=== PATIENT | female | born 1950 | race Caucasian/White ===

== ENCOUNTER 2016-07-25 09:11 | Inpatient (IN) | payer BC ==
[2016-07-25] MEDS ORDERED: methylPREDNISolone SOD SUCC* 125 MG 2 ML VIAL IV ONE (10:40)
[2016-07-25] MEDS ORDERED: Ibuprofen TAB* 600 MG PO ONE (10:40)
[2016-07-25] MEDS ORDERED: Albuterol/Ipratropium NEB.SOL* Albuterol 2.5 MG/Ipratropium 0.5 MG 3 ML INH ONE ×2 (10:40→12:09)
[2016-07-25] MEDS ORDERED: Levofloxacin 750 MG IVPREMIX(* 750 MG/150 ML BAG IVPB ONE (10:41)
--- NOTE | 2016-07-25 10:59 | RAD ---
INDICATION: Short of breath COMPARISON: May 15, 2016 TECHNIQUE: PA and lateral dual-energy views were obtained. FINDINGS: Bones/Soft Tissues: There are no acute bony findings. Cardiomediastinal: The cardiac silhouette is unchanged. There is mediastinal shift to left related to left-sided thoracotomy. Lungs: Postoperative changes left hemithorax. No acute infiltrates. Pleura: There are no pleural effusions. Other: None IMPRESSION: LEFT THORACOTOMY. NO ACTIVE DISEASE.
[2016-07-25 11:05] LABS: Hematocrit 37 % (35-47); Mean Corpuscular HGB Conc 32 g/dl (31-36); Mean Corpuscular Hemoglobin 33 pg (27-31); Mean Corpuscular Volume 101 fL (80-97); Mean Platelet Volume 8 um3 (7.4-10.4); Red Blood Count 3.65 10^6/ul (4.0-5.4); Red Cell Distribution Width 14 % (10.5-15); White Blood Count 17.3 10^3/ul (3.5-10.8)
[2016-07-25 11:16] LABS: Albumin 3.8 g/dL (3.2-5.2); BUN/Creatinine Ratio 13.1 (8-20); Calcium 9.5 mg/dL (8.6-10.3); EGFR Non-African American 98.7 (>60); Globulin 3.4 g/dL (2-4); Potassium 3.7 mmol/L (3.5-5.0); Total Bilirubin 0.3 mg/dL (0.2-1.0); Total Protein 7.2 g/dL (6.4-8.9)
[2016-07-25 11:20] LABS: Troponin I 0.06 ng/mL (<0.04)
[2016-07-25] MEDS ORDERED: Morphine INJ* 4 MG/ML 1 ML SYRINGE IV ONE (13:04)
[2016-07-25] MEDS ORDERED: NS 0.9% 1000 ML* 1,000 ML IV ONE (13:06)
[2016-07-25] MEDS ORDERED: QUEtiapine TAB* 25 MG PO PRN (13:12)
--- NOTE | 2016-07-25 13:20 | ED ---
Jennifer Winkler Rebecca, scribed for Solo Seth MD on 07/25/16 at 0956 . Shortness of Breath - HPI Summary HPI Summary: Jessi Glover is a 65 y/o F BIBA who presents to the ED c/o SOB. SOB began 3 weeks ago as constant mild dyspnea at rest, secondary to recent illness, and worsened last night. She was given 2 duoneb treatments and O2 en route to [facility] ED by EMS. Sx aggravated by nothing, alleviated by EMS intervention. Additionally c/o low-grade fever, productive cough. Fever has been around 99, last night reaching 100.1. Sputum is "chartreuse" colored and thick. Confirms she has an inhaler and nebulizer at home. Does not have O2 at home. Was on 1 course of Prednisone in January, and 1 course in early May 2016. PMHx COPD, heart murmur and lung CA (3 years ago). PSHx left upper lobectomy. - History of Current Complaint Chief Complaint: EDRespiratoryDistress Time Seen by Provider: 07/25/16 09:50 Hx Obtained From: Patient Onset/Duration: Gradual Onset, Lasting Weeks - 3 weeks, Worse Since - last night Timing: Constant Current Severity: Moderate Dyspnea At: Rest Aggrevating Factors: Nothing Alleviating Factors: EMS Tx Associated Signs & Symptoms: Cough (Productive) - "chartreuse" sputum, Fever - low-grade - Allergy/Home Medications Allergies/Adverse Reactions: Allergies Allergy/AdvReac Type Severity Reaction Status Date / Time Aspirin Allergy Anaphylatic Verified 07/25/16 12:15 Shock Latex AdvReac Mild Rash Verified 07/25/16 12:15 Home Medications: Home Medications Seroquel TAB* 50 mg PO QPM PRN 07/25/16 [History Confirmed 07/25/16] PMH/Surg Hx/FS Hx/Imm Hx Endocrine/Hematology History: Reports: Hx Thyroid Disease - hypothyroid, Other Endocrine/Hematological Disorders - Benign goiter Denies: Hx Bone Marrow Disease, Hx Diabetes, Hx Systemic Lupus Erythematosus Cardiovascular History: Reports: Hx Hypercholesterolemia - was high before cancer,now off meds., Hx Hypertension, Other Cardiovascular Problems/Disorders - patent foramen ovale; Murmur Denies: Hx Congestive Heart Failure, Hx Pacemaker/ICD Respiratory History: Reports: Hx Chronic Obstructive Pulmonary Disease (COPD), Hx Lung Cancer - Left upper lobectomy, Hx Pneumonia, Other Respiratory Problems/ Disorders - lung cancer, LOBECTOMY 09/11/11 GI History: Reports: Hx Gastroesophageal Reflux Disease, Hx Hiatal Hernia, Other GI Disorders - hiatal hernia, colitis. 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, Hx Osteoporosis - Possible, Hx Scoliosis, Other Musculoskeletal History - scoliosis Denies: Hx Rheumatoid Arthritis Sensory History: Reports: Hx Cataracts - PATIENT STATES BEGINING OF CATARACTS LEFT EYE, Hx Contacts or Glasses, Hx Hearing Problem - right Denies: Hx Hearing Aid Opthamlomology History: Reports: Hx Cataracts - PATIENT STATES BEGINING OF CATARACTS LEFT EYE, Hx Contacts or Glasses Neurological History: Reports: Hx Headaches - frequent h/a's, Hx Migraine - Rare post menopause Psychiatric History: Reports: Hx Anxiety, Hx Depression, Hx Community Mental Health Tx, Hx Substance Abuse - opiods Denies: Hx Panic Disorder, Hx Inpatient Treatment - Cancer History Cancer Type, Location and Year: LUNG CA, DIAGNOSED July 2012 Hx Chemotherapy: Yes Hx Radiation Therapy: No Hx Palliative Cancer Treatment: No - Surgical History Surgery Procedure, Year, and Place: LEFT UPPER LUNG REMOVED 09/2012, HYSTERECTOMY , tonsillectomy Hx Anesthesia Reactions: No - Immunization History Date of Tetanus Vaccine: UTD Date of Influenza Vaccine: 05/01/16 Infectious Disease History: No Infectious Disease History: Denies: Traveled Outside the [place] in Last 30 Days - Family History Known Family History: Positive: Cardiac Disease - Sudden cardiac arrest (father) , Other - son -- glioblastoma. mother - Social History Lives: Alone Alcohol Use: None Hx Substance Use: No Substance Use Type: Reports: None Substance Use Comment - Amount & Last Used: opiates Hx Tobacco Use: Yes Smoking Status (MU): Current Every Day Smoker Type: Cigarettes Amount Used/How Often: 1/2 pack a day Length of Time of Smoking/Using Tobacco: 47 years Have You Smoked in the Last Year: Yes Review of Systems Positive: Fever - low-grade Positive: Shortness Of Breath, Cough - productive All Other Systems Reviewed And Are Negative: Yes Physical Exam Triage Information Reviewed: Yes Vital Signs On Initial Exam: Initial Vitals Temp Pulse Resp BP Pulse Ox 98.3 F 109 24 136/107 100 07/25/16 09:16 07/25/16 09:16 07/25/16 09:16 07/25/16 09:16 07/25/16 09:16 Vital Signs Reviewed: Yes Appearance: Positive: Well-Appearing, No Pain Distress Skin: Positive: Warm, Skin Color Reflects Adequate Perfusion, Dry Head/Face: Positive: Normal Head/Face Inspection Eyes: Positive: Normal ENT: Positive: Normal ENT inspection Neck: Positive: Supple, Nontender Respiratory/Lung Sounds: Positive: Decreased Breath Sounds - Diminished breath sounds in the upper left, Rales - Worse on the R than L Cardiovascular: Positive: Murmur - Loud systolic ejection murmur that's transmitted all over her chest Abdomen Description: Positive: Nontender, Soft Bowel Sounds: Positive: Present Musculoskeletal: Positive: Normal Neurological: Positive: Normal Psychiatric: Positive: Normal, Affect/Mood Appropriate Diagnostics - Vital Signs Vital Signs Temp Pulse Resp BP Pulse Ox 07/25/16 09:16 98.3 F 109 24 136/107 100 - Laboratory Lab Results: Lab Results 07/25/16 07/25/16 Range/Units 10:00 10:00 WBC 17.3 H (3.5-10.8) 10^3/ul RBC 3.65 L (4.0-5.4) 10^6/ul Hgb 12.0 (12.0-16.0) g/dl Hct 37 (35-47) % MCV 101 H (80-97) fL MCH 33 H (27-31) pg MCHC 32 (31-36) g/dl RDW 14 (10.5-15) % Plt Count 337 (150-450) 10^3/ul MPV 8 (7.4-10.4) um3 Neut % (Auto) 88.4 H (38-83) % Lymph % (Auto) 4.9 L (25-47) % Armstrong % (Auto) 6.0 (1-9) % Eos % (Auto) 0.2 (0-6) % Baso % (Auto) 0.5 (0-2) % Absolute Neuts (auto) 15.3 H (1.5-7.7) 10^3/ul Absolute Lymphs (auto) 0.9 L (1.0-4.8) 10^3/ul Absolute Monos (auto) 1.0 H (0-0.8) 10^3/ul Absolute Eos (auto) 0 (0-0.6) 10^3/ul Absolute Basos (auto) 0.1 (0-0.2) 10^3/ul Absolute Nucleated RBC 0 10^3/ul Nucleated RBC % 0 Sodium 128 L (133-145) mmol/L Potassium 3.7 (3.5-5.0) mmol/L Chloride 95 L (101-111) mmol/L Carbon Dioxide 21 L (22-32) mmol/L Anion Gap 12 H (2-11) mmol/L BUN 8 (6-24) mg/dL Creatinine 0.61 (0.51-0.95) mg/dL Est GFR ( Amer) 127.0 (>60) Est GFR (Non-Af Amer) 98.7 (>60) BUN/Creatinine Ratio 13.1 (8-20) Glucose 132 H (70-100) mg/dL Calcium 9.5 (8.6-10.3) mg/dL Total Bilirubin 0.30 (0.2-1.0) mg/dL AST 21 (13-39) U/L ALT 12 (7-52) U/L Alkaline Phosphatase 93 (34-104) U/L Troponin I 0.06 H* (<0.04) ng/mL Total Protein 7.2 (6.4-8.9) g/dL Albumin 3.8 (3.2-5.2) g/dL Globulin 3.4 (2-4) g/dL Albumin/Globulin Ratio 1.1 (1-3) Result Diagrams: 07/25/16 10:00 07/25/16 10:00 Lab Statement: Any lab studies that have been ordered have been reviewed, and results considered in the medical decision making process. - Radiology CXR Radiology Interpretation Completed By: Radiologist - LEFT THORACOTOMY. NO ACTIVE DISEASE. - EKG 0915 Cardiac Rate: Tachycardia - 100 bpm EKG Rhythm: Sinus Tachycardia ST Segment: Normal Ectopy: None Course/Dx - Course Assessment/Plan: Jessi Glover is a 65 y/o F BIBA with a CC of SOB for 3 weeks , secondary to cold, worsening last night. Alleviated by EMS treatments ( duonebs and O2). Additionally c/o productive cough ("chartreuse" color) and low- grade fever, being 100.1 at its highest last night. EKG reveals sinus tachycardia. CXR reveals no active disease. Troponin of 0.06. Her CXR isn't showing an infiltrate but I think it is likely that she has infection somewhere in her airways and I treated her with levaquin and fluids as well as steroids and nebs. She improved but not enough to go home. Discussed care with Dr. Durant, hospitalist, who accepts her for admission. - Diagnoses Provider Diagnoses: Pneumonia, COPD exacerbation - Physician Notifications Discussed Care of Patient With: Dr. Durant, hospitalist, who accepts her for admission. Time Discussed With Above Provider: 12:11 - Critical Care Time Critical Care Time: 30-74 min Discharge - Discharge Plan Condition: Stable Disposition: ADMITTED TO [facility] Referrals: Guerrero Gtz, [employer] [Primary Care Provider] - The documentation as recorded by the Jennifer crawford Rebecca accurately reflects the service I personally performed and the decisions made by me, Solo Seth MD.
[2016-07-25] MEDS ORDERED: Ondansetron INJ* 2 MG/ML VIAL IV PRN (13:24)
[2016-07-25] MEDS ORDERED: Ondansetron INJ* 2 MG/ML VIAL ONE (13:25)
[2016-07-25 13:37] LABS: C Reactive Protein 82.34 mg/L (< 5.00)
[2016-07-25] MEDS: Albuterol/Ipratropium NEB.SOL* Albuterol 2.5 MG/Ipratropium 0.5 MG 3 ML INH PRN ×2 (15:28→20:30)
[2016-07-25] MEDS: Heparin VIAL(*) 5000 UNITS/ML VIAL (FIVE THOUSAND) SUBCUT SCH ×2 (16:21→20:30)
[2016-07-25] MEDS: oxyCODONE/Acetamin 5/325 MG* TAB PO PRN ×2 (17:24→20:28)
--- NOTE | 2016-07-25 20:12 | HP ---
HOSPITAL MEDICINE HISTORY AND PHYSICAL: DATE OF ADMISSION: 07/25/16 PRIMARY CARE PHYSICIAN: Guerrero Gtz NP ATTENDING PHYSICIAN: Master Durant MD* (dictation provided by Angelique Linton NP) CHIEF COMPLAINT: Shortness of breath and cough. HISTORY OF PRESENT ILLNESS: Ms. Glover is a 65-year-old female with a past medical history of lung cancer and COPD, not on home O2 who presents today to the hospital with concern for shortness of breath and cough. Ms. Glover states that she has been sick for approximately 3 weeks. She initially had symptoms of cold with congestion and arthralgias and myalgias as well as some shortness of breath. She was seen by her primary care provider who did prescribe her a steroid taper. She was not prescribed antibiotics at that time. The patient states that she never really felt much better and in the past couple of days she has been having increasing cough and shortness of breath. She states the sputum is thick. She has had low-grade fevers. Today, she was so short of breath that she could not catch her breath at all and decided to come to the emergency room for evaluation. In the emergency room, Ms. Glover had leukocytosis with white blood cell count of 17.3. She had a mild elevation in troponin to 0.06. Her heart rate is elevated at about 115, blood pressure is stable, and she is afebrile. Chest x-ray shows no acute process. Based on Ms. Glover's presentation with concern for shortness of breath, cough and likely COPD exacerbation, Hospital Medicine was called for regarding admission. PAST MEDICAL HISTORY: 1. Adenocarcinoma of the left lung, status post chemotherapy and left upper lobectomy. 2. COPD. 3. Hiatal hernia. 4. PFO. 5. Chronic back pain. 6. Hypertension. 7. Hypothyroidism. 8. History of opioid and benzodiazepine abuse. PAST SURGICAL HISTORY: 1. Left upper lobectomy in 2012. 2. PowerPort placement and removal. 3. Tonsillectomy. 4. Vaginal hysterectomy. MEDICATIONS: 1. Albuterol via nebulizer p.r.n. 2. Albuterol via metered dose inhaler p.r.n. 3. Fluticasone 220 mcg 1 puff inhaled b.i.d. 4. Ipratropium via nebulizer p.r.n. 5. Loratadine 10 mg p.o. daily. 6. Amlodipine 5 mg p.o. q.a.m. 7. Atenolol 25 mg p.o. q.a.m. 8. Duloxetine 60 mg p.o. daily. 9. Levothyroxine 200 mcg p.o. daily. 10. Omeprazole 40 mg p.o. b.i.d. 11. Seroquel 50 mg p.o. q.p.m. p.r.n. insomnia. ALLERGIES: To ASPIRIN and LATEX. FAMILY HISTORY: The patient reports her mom at age of 73 of complications related to ulcerative colitis. Dad at age of 55 of cardiac arrest. The patient has 1 child who of suicide, and 1 who of alcohol-related complications with history also of glioblastoma. SOCIAL HISTORY: The patient states she is an active smoker, smoking one-half pack per day. She smoked since the age of 18. She denies any alcohol use. She has a history of opioid and benzodiazepine abuse, though she denies today. Her daughter is the healthcare proxy. REVIEW OF SYSTEMS: A 14-point review of systems was completed with Ms. Glover and all those not mentioned above were negative. PHYSICAL EXAMINATION GENERAL: Ms. Glover is sitting in the bed. She is in no acute distress. VITAL SIGNS: Temperature 98.3, heart rate 114, respiratory rate 24, O2 saturation 97% on 3L nasal cannula, and blood pressure 141/93. LUNGS: Coarse rhonchi, whistles, and expiratory wheezing bilaterally, left greater than right. HEART: S1, S2 with a loud systolic murmur. Rhythm is regular. ABDOMEN: Soft and nontender with bowel sounds positive x4. EXTREMITIES: No cyanosis or edema. SKIN: Intact. NEUROLOGIC: She is alert and oriented x3. She moves all extremities equally. There is no facial asymmetry or focal weakness. Extraocular movements are intact. DIAGNOSTIC STUDIES/LAB DATA: Sodium 128, potassium 3.7, chloride 95, serum bicarbonate 21, BUN 8, creatinine 0.61, and glucose 132. Troponin 0.06. WBC 17.3, hemoglobin 12.0, hematocrit 37, and platelet count 337. Chest x-ray is read as follows: "Left thoracotomy, no active disease." EKG shows a sinus tachycardia with no evidence of ischemia. ASSESSMENT: Ms. Glover is a 65-year-old female with past medical history of lung cancer and chronic obstructive pulmonary disease who presents today to the emergency room with shortness of breath and cough with illness for over 3 weeks , now acutely worse in the past couple of days. In the emergency room, her chest x- ray is clear, but she does have a leukocytosis. She is afebrile. Our plans are for inpatient admission, I expect her length of stay to be greater than 2 days for the followin. Shortness of breath and cough: I highly suspect the patient has a chronic obstructive pulmonary disease exacerbation based on clinical exam. She does have elevated white count, but her chest x-ray is clear. I do not see any clear indication of pneumonia at this point, but it could be that with IV fluids , her pneumonia may become more evident on chest x-ray. I plan to treat with doxycycline for antibiotic coverage for now. She will have Solu-Medrol 60 mg IV b.i.d. for steroid coverage. I am also suspicious that perhaps she has a flu and plan to check now. The patient has had blood cultures. Lactic acid is being drawn now. She is currently requiring 3 L of oxygen. We will continue that and titrate that down if possible. She will have duo-nebulizer treatments q.4 hours as needed. 2. Hypertension: Continue atenolol and amlodipine. 3. Gastroesophageal reflux disease: Continue omeprazole. 4. DVT prophylaxis: Heparin subcu. 5. Code status: Full code. 6. Disposition: To medical floor. TIME SPENT: Approximately 60 minutes was spent in the admission of this patient , more than half of the time was spent with the patient at the bedside reviewing the events leading up to this hospitalization, performing the physical examination, and reviewing my plan of care. ANGELIQUE LINTON NP CC: Guerrero Gtz NP* [id number]/[facility] #: [id number] [facility] HOSPITALMadyson
[2016-07-25] MEDS: DOXYcycline CAP(*) 100 MG PO SCH (20:30)
[2016-07-25] MEDS: Omeprazole CAP* 20 MG PO SCH (20:30)
[2016-07-26] MEDS: Albuterol/Ipratropium NEB.SOL* Albuterol 2.5 MG/Ipratropium 0.5 MG 3 ML INH PRN ×6 (00:35→22:33)
[2016-07-26] MEDS: oxyCODONE/Acetamin 5/325 MG* TAB PO PRN ×6 (00:35→23:47)
[2016-07-26] MEDS ORDERED: Ibuprofen TAB* 400 MG ONE (03:12)
[2016-07-26] MEDS: Ibuprofen TAB* 400 MG PO PRN ×2 (03:13→10:55)
[2016-07-26 04:10] LABS: PCO2 Arterial 39 mmHg (35-45)
[2016-07-26] MEDS ORDERED: ALPRAZolam TAB* 0.5 MG ONE (05:10)
[2016-07-26] MEDS: Heparin VIAL(*) 5000 UNITS/ML VIAL (FIVE THOUSAND) SUBCUT SCH ×3 (05:12→20:23)
[2016-07-26] MEDS: Levothyroxine TAB* 100 MCG TAB PO SCH (05:12)
[2016-07-26] MEDS: ALPRAZolam TAB* 0.5 MG PO PRN ×3 (05:12→22:29)
[2016-07-26] MEDS: DOXYcycline CAP(*) 100 MG PO SCH ×2 (08:28→20:22)
[2016-07-26] MEDS: DULoxetine DR CAP* 60 MG CAP.DR PO SCH (08:28)
[2016-07-26] MEDS: Atenolol TAB* 25 MG PO SCH (08:29)
[2016-07-26] MEDS: methylPREDNISolone SOD SUCC* 125 MG 2 ML VIAL IV SCH ×2 (08:29→20:23)
[2016-07-26] MEDS: amLODIPine TAB* 5 MG PO SCH (08:29)
[2016-07-26] MEDS: Omeprazole CAP* 20 MG PO SCH ×2 (08:29→20:23)
[2016-07-26] MEDS: NS 0.9% 1000 ML* 1,000 ML IV SCH ×2 (08:30→16:36)
[2016-07-26 08:35] LABS: Hematocrit 33 % (35-47); Hemoglobin 10.9 g/dl (12.0-16.0); Mean Corpuscular HGB Conc 34 g/dl (31-36); Mean Corpuscular Hemoglobin 33 pg (27-31); Mean Corpuscular Volume 99 fL (80-97); Mean Platelet Volume 8 um3 (7.4-10.4); Red Blood Count 3.29 10^6/ul (4.0-5.4); Red Cell Distribution Width 14 % (10.5-15); White Blood Count 16.7 10^3/ul (3.5-10.8)
[2016-07-26 08:55] LABS: Troponin I 0.04 ng/mL (<0.04)
[2016-07-26] MEDS ORDERED: Spiriva Inhaler DEVICE* 1 EACH DEVICE ONE (09:00)
[2016-07-26] MEDS: Tiotropium CAP.INH* CAP.INH/18 MCG INH SCH (09:29)
[2016-07-26 09:44] LABS: Calcium 9.5 mg/dL (8.6-10.3); EGFR African American 110.2 (>60); EGFR Non-African American 85.7 (>60); Potassium 3.9 mmol/L (3.5-5.0)
[2016-07-26] MEDS: guaiFENesin ER TAB 600 MG PO SCH ×2 (12:25→20:22)
--- NOTE | 2016-07-26 14:06 | PN ---
Subjective Date of Service: 07/26/16 Interval History: This is a 65 yo female with COPD and h/o lung CA who presented yesterday with complaints of cough and SOB. She had been feeling congested with mylagias and arthralgias for 3 weeks prior to admission. Influenza testing was negative. She was admitted with a COPD exacerbation and started on IV Solumedrol, doxycycline and nebulizers. Patient typically uses Flovent and prn DuoNebs at home for her COPD treatment. Last night she became severely SOB, ABG was WNL. Symptoms improved with Xanax. Today, she reports that she is feeling much better. She was able to sleep after receiving the Xanax. Her cough and dyspnea are improving. She is still quite fatigued. She denies CP, palp, abd pain, n/v. No new complaints. Objective Active Medications: Albuterol/Ipratropium (Duoneb Neb.Tracey*) 1 neb INH Q4H PRN PRN Reason: SOB/WHEEZING Last Admin: 07/26/16 09:29 Dose: 1 neb Alprazolam (Xanax Tab*) 0.5 mg PO TID PRN PRN Reason: ANXIETY Last Admin: 07/26/16 13:59 Dose: 0.5 mg Amlodipine Besylate (Norvasc Tab*) 5 mg PO QAM [facility] Last Admin: 07/26/16 08:29 Dose: 5 mg Atenolol (Tenormin Tab*) 25 mg PO QAM [facility] Last Admin: 07/26/16 08:29 Dose: 25 mg Doxycycline Hyclate (Vibramycin Cap(*)) 100 mg PO BID [facility] Last Admin: 07/26/16 08:28 Dose: 100 mg Duloxetine HCl (Cymbalta Cap*) 60 mg PO DAILY [facility] Last Admin: 07/26/16 08:28 Dose: 60 mg Guaifenesin (Mucinex*) 1,200 mg PO BID [facility] Last Admin: 07/26/16 12:25 Dose: 1,200 mg Heparin Sodium (Porcine) (Heparin Vial(*)) 5,000 units SUBCUT Q8HR [facility] Last Admin: 07/26/16 13:45 Dose: 5,000 units Sodium Chloride (Ns 0.9% 1000 Ml*) 1,000 mls @ 125 mls/hr IV PER RATE [facility] Stop: 07/26/16 21:14 Last Admin: 07/26/16 08:30 Dose: 125 mls/hr Ibuprofen (Motrin Tab*) 400 mg PO Q6H PRN PRN Reason: PAIN Last Admin: 07/26/16 10:55 Dose: 400 mg Levothyroxine Sodium (Synthroid Tab*) 200 mcg PO DAILY@0600 [facility] Last Admin: 07/26/16 05:12 Dose: 200 mcg Methylprednisolone Sodium Succinate (Solu-Medrol*) 60 mg IV Q12H [facility] Stop: 07/26/16 23:00 Last Admin: 07/26/16 08:29 Dose: 60 mg Omeprazole (Prilosec Cap*) 40 mg PO BID [facility] Last Admin: 07/26/16 08:29 Dose: 40 mg Ondansetron HCl (Zofran Inj*) 4 mg IV Q6H PRN PRN Reason: NAUSEA Last Admin: 07/25/16 13:26 Dose: 4 mg Oxycodone/Acetaminophen (Percocet 5/325 Tab*) 1 tab PO Q4H PRN PRN Reason: PAIN Last Admin: 07/26/16 12:25 Dose: 1 tab Prednisone (Deltasone Tab*) 40 mg PO DAILY [facility] Quetiapine Fumarate (Seroquel Tab*) 50 mg PO QPM PRN PRN Reason: INSOMNIA Tiotropium [place] (Spiriva Cap.Inh*) 1 cap INH DAILY [facility] Last Admin: 07/26/16 09:29 Dose: 1 cap Vital Signs: Temp Pulse Resp BP Pulse Ox 98.6 F 84 16 144/75 98 07/26/16 08:01 07/26/16 14:03 07/26/16 14:03 07/26/16 08:01 07/26/16 14:03 Oxygen Devices in Use Now: Nasal Cannula Appearance: Mildly ill appearing female who appears slightly older than stated age. Ears/Nose/Mouth/Throat: Mucous Membranes Moist Neck: NL Appearance and Movements; NL JVP Respiratory: Symmetrical Chest Expansion and Respiratory Effort, - - diffuse rhonchi and wheezing appreciated Extremities: No Edema Skin: No Rash or Ulcers Neurological: Alert and Oriented x 3 Result Diagrams: 07/26/16 08:28 07/26/16 08:28 Additional Lab and Data: . Microbiology and Other Data: Microbiology 07/25/16 13:32 Influenza Types A,B Antigen ([facility]) - Final Nasal Specimen received for Influenza A/B Molecular testing Diagnostic Imaging: CXR - NAD Assess/Plan/Problems-Billing Assessment: This is a 65 yo female with COPD, HTN, hypothyroidism, PFO, chronic back pain and a h/o lung CA s/p resection and opiate/benzo abuse. She was admitted with a COPD exacerbation, no infiltrated on CXR. - Patient Problems (1) COPD exacerbation Comment: Patient reports significant improvement since admission Transition from IV Solumedrol to prednisone Started Spiriva and Mucinex Cont prn Duonebs and doxycycline (2) Hypertension Comment: Normotensive to slightly hypertensive Continue home antihypertensives (3) Hyponatremia Comment: Resolved with IVF (4) Hypothyroidism Comment: Continue levthyroxine at current home dose Last TSH was slightly over corrected measured last month (5) Tobacco abuse Comment: Patient has a strong desire to quit smoking at this time Declines nicotine replacement in the hospital Status and Disposition: Patient requires continued inpatient hospital care. Discharge in 1-2 days.
[2016-07-27] MEDS: oxyCODONE/Acetamin 5/325 MG* TAB PO PRN ×4 (04:09→21:00)
[2016-07-27] MEDS: Levothyroxine TAB* 100 MCG TAB PO SCH (05:38)
[2016-07-27] MEDS: Heparin VIAL(*) 5000 UNITS/ML VIAL (FIVE THOUSAND) SUBCUT SCH ×3 (05:39→20:56)
[2016-07-27] MEDS: Albuterol/Ipratropium NEB.SOL* Albuterol 2.5 MG/Ipratropium 0.5 MG 3 ML INH PRN ×5 (06:33→22:58)
[2016-07-27] MEDS: ALPRAZolam TAB* 0.5 MG PO PRN ×3 (06:33→21:00)
[2016-07-27] MEDS: Atenolol TAB* 25 MG PO SCH (09:21)
[2016-07-27] MEDS: Omeprazole CAP* 20 MG PO SCH ×2 (09:22→20:54)
[2016-07-27] MEDS: predniSONE TAB* 20 MG PO SCH (09:22)
[2016-07-27] MEDS: DOXYcycline CAP(*) 100 MG PO SCH ×2 (09:23→20:55)
[2016-07-27] MEDS: amLODIPine TAB* 5 MG PO SCH (09:23)
[2016-07-27] MEDS: guaiFENesin ER TAB 600 MG PO SCH ×2 (09:23→20:55)
[2016-07-27] MEDS: DULoxetine DR CAP* 60 MG CAP.DR PO SCH (09:23)
[2016-07-27] MEDS: Tiotropium CAP.INH* CAP.INH/18 MCG INH SCH (10:06)
--- NOTE | 2016-07-27 10:53 | PN ---
Subjective Date of Service: 07/27/16 Interval History: Patient reports improvement but is still quite dyspneic with ambulation. O2 sats maintained in mid 90s on RA at rest, but requires 2L to maintain 90% with ambulation. Objective Active Medications: Albuterol/Ipratropium (Duoneb Neb.Tracey*) 1 neb INH Q4H PRN PRN Reason: SOB/WHEEZING Last Admin: 07/27/16 10:09 Dose: 1 neb Alprazolam (Xanax Tab*) 0.5 mg PO TID PRN PRN Reason: ANXIETY Last Admin: 07/27/16 06:33 Dose: 0.5 mg Amlodipine Besylate (Norvasc Tab*) 5 mg PO QAM ON [facility] OF [facility] Last Admin: 07/27/16 09:23 Dose: 5 mg Atenolol (Tenormin Tab*) 25 mg PO QAM ON LICENSE OF [facility] Last Admin: 07/27/16 09:21 Dose: 25 mg Doxycycline Hyclate (Vibramycin Cap(*)) 100 mg PO BID [facility] OF [facility] Last Admin: 07/27/16 09:23 Dose: 100 mg Duloxetine HCl (Cymbalta Cap*) 60 mg PO DAILY [facility] OF [facility] Last Admin: 07/27/16 09:23 Dose: 60 mg Guaifenesin (Mucinex*) 1,200 mg PO BID [facility] Last Admin: 07/27/16 09:23 Dose: 1,200 mg Heparin Sodium (Porcine) (Heparin Vial(*)) 5,000 units SUBCUT Q8HR ON LICENSE OF [facility] Last Admin: 07/27/16 05:39 Dose: 5,000 units Ibuprofen (Motrin Tab*) 400 mg PO Q6H PRN PRN Reason: PAIN Last Admin: 07/26/16 10:55 Dose: 400 mg Levothyroxine Sodium (Synthroid Tab*) 200 mcg PO DAILY@0600 [facility] Last Admin: 07/27/16 05:38 Dose: 200 mcg Omeprazole (Prilosec Cap*) 40 mg PO BID [facility] OF [facility] Last Admin: 07/27/16 09:22 Dose: 40 mg Ondansetron HCl (Zofran Inj*) 4 mg IV Q6H PRN PRN Reason: NAUSEA Last Admin: 07/25/16 13:26 Dose: 4 mg Oxycodone/Acetaminophen (Percocet 5/325 Tab*) 1 tab PO Q4H PRN PRN Reason: PAIN Last Admin: 07/27/16 04:09 Dose: 1 tab Prednisone (Deltasone Tab*) 40 mg PO DAILY [facility] Last Admin: 07/27/16 09:22 Dose: 40 mg Quetiapine Fumarate (Seroquel Tab*) 50 mg PO QPM PRN PRN Reason: INSOMNIA Tiotropium [place] (Spiriva Cap.Inh*) 1 cap INH DAILY [facility] Last Admin: 07/27/16 10:06 Dose: 1 cap Vital Signs: Temp Pulse Resp BP Pulse Ox 97.4 F 92 18 132/86 99 07/27/16 07:24 07/27/16 10:12 07/27/16 10:45 07/27/16 07:24 07/27/16 10:12 Oxygen Devices in Use Now: Nasal Cannula Appearance: Mildly ill appearing middle aged female in NAD. Occasional productive cough during exam Respiratory: Symmetrical Chest Expansion and Respiratory Effort, - - diffuse wheezing and rhonchi, similar to yesterday's exam Cardiovascular: RRR Abdominal: NL Sounds; No Tenderness; No Distention Extremities: No Edema Skin: No Rash or Ulcers Neurological: Alert and Oriented x 3 Result Diagrams: 07/26/16 08:28 07/26/16 08:28 Additional Lab and Data: . Microbiology and Other Data: Microbiology 07/25/16 13:32 Influenza Types A,B Antigen ([facility]) - Final Nasal Specimen received for Influenza A/B Molecular testing Diagnostic Imaging: CXR - NAD Assess/Plan/Problems-Billing Assessment: This is a 65 yo female with COPD, HTN, hypothyroidism, PFO, chronic back pain and a h/o lung CA s/p resection and opiate/benzo abuse. She was admitted with a COPD exacerbation, no infiltrated on CXR. - Patient Problems (1) COPD exacerbation Comment: Noted improvement since admission but still quite dyspneic and hypoxic with ambulation Started Spiriva and Mucinex Cont prednisone, prn Duonebs and doxycycline (2) Hypertension Comment: Normotensive to slightly hypertensive Continue home antihypertensives (3) Hyponatremia Comment: Resolved with IVF (4) Hypothyroidism Comment: Continue levthyroxine at current home dose Last TSH was slightly over corrected, measured last month (5) Tobacco abuse Comment: Patient has a strong desire to quit smoking at this time Declines nicotine replacement in the hospital Status and Disposition: Patient requires continued inpatient hospital care. Likely ready for dc tomorrow. May require prn home O2 for activity.
[2016-07-28] MEDS: oxyCODONE/Acetamin 5/325 MG* TAB PO PRN ×4 (01:46→20:55)
[2016-07-28] MEDS: Levothyroxine TAB* 100 MCG TAB PO SCH (06:20)
[2016-07-28] MEDS: Heparin VIAL(*) 5000 UNITS/ML VIAL (FIVE THOUSAND) SUBCUT SCH ×3 (06:21→20:56)
[2016-07-28] MEDS: Albuterol/Ipratropium NEB.SOL* Albuterol 2.5 MG/Ipratropium 0.5 MG 3 ML INH PRN ×2 (09:36→16:40)
[2016-07-28] MEDS: Tiotropium CAP.INH* CAP.INH/18 MCG INH SCH (09:47)
[2016-07-28] MEDS: Omeprazole CAP* 20 MG PO SCH ×2 (10:36→20:55)
[2016-07-28] MEDS: DULoxetine DR CAP* 60 MG CAP.DR PO SCH (10:36)
[2016-07-28] MEDS: predniSONE TAB* 20 MG PO SCH (10:37)
[2016-07-28] MEDS: ALPRAZolam TAB* 0.5 MG PO PRN (10:37)
[2016-07-28] MEDS: guaiFENesin ER TAB 600 MG PO SCH ×2 (10:37→20:54)
[2016-07-28] MEDS: DOXYcycline CAP(*) 100 MG PO SCH ×2 (10:37→20:54)
[2016-07-28] MEDS: amLODIPine TAB* 5 MG PO SCH (10:38)
[2016-07-28] MEDS: Atenolol TAB* 25 MG PO SCH (10:38)
--- NOTE | 2016-07-28 11:26 | PN ---
Subjective Date of Service: 07/28/16 Interval History: . Pt reports she is very winded from ambulating and now is SOB at rest. Difficult to speak full sentences due to feeling sob. Pt is worried about going home now thinking is is not as well as she thought she was. She denies fever or chills. reports productive cough with thick patiño/yellow sputum. good appetite. no N/V/D. Denies CP. Reports she plans to quit smoking, she refuses needing or wanting nicotine replacement. Objective Active Medications: Albuterol/Ipratropium (Duoneb Neb.Tracey*) 1 neb INH Q4H PRN PRN Reason: SOB/WHEEZING Last Admin: 07/28/16 09:36 Dose: 1 neb Alprazolam (Xanax Tab*) 0.5 mg PO TID PRN PRN Reason: ANXIETY Last Admin: 07/28/16 10:37 Dose: 0.5 mg Amlodipine Besylate (Norvasc Tab*) 5 mg PO QAM [facility] Last Admin: 07/28/16 10:38 Dose: 5 mg Atenolol (Tenormin Tab*) 25 mg PO QAM [facility] Last Admin: 07/28/16 10:38 Dose: 25 mg Doxycycline Hyclate (Vibramycin Cap(*)) 100 mg PO BID [facility] Last Admin: 07/28/16 10:37 Dose: 100 mg Duloxetine HCl (Cymbalta Cap*) 60 mg PO DAILY [facility] Last Admin: 07/28/16 10:36 Dose: 60 mg Guaifenesin (Mucinex*) 1,200 mg PO BID [facility] Last Admin: 07/28/16 10:37 Dose: 1,200 mg Heparin Sodium (Porcine) (Heparin Vial(*)) 5,000 units SUBCUT Q8HR [facility] Last Admin: 07/28/16 06:21 Dose: 5,000 units Ibuprofen (Motrin Tab*) 400 mg PO Q6H PRN PRN Reason: PAIN Last Admin: 07/26/16 10:55 Dose: 400 mg Levothyroxine Sodium (Synthroid Tab*) 200 mcg PO DAILY@0600 [facility] Last Admin: 07/28/16 06:20 Dose: 200 mcg Omeprazole (Prilosec Cap*) 40 mg PO BID [facility] Last Admin: 07/28/16 10:36 Dose: 40 mg Ondansetron HCl (Zofran Inj*) 4 mg IV Q6H PRN PRN Reason: NAUSEA Last Admin: 07/25/16 13:26 Dose: 4 mg Oxycodone/Acetaminophen (Percocet 5/325 Tab*) 1 tab PO Q4H PRN PRN Reason: PAIN Last Admin: 07/28/16 06:20 Dose: 1 tab Prednisone (Deltasone Tab*) 40 mg PO DAILY [facility] Last Admin: 07/28/16 10:37 Dose: 40 mg Quetiapine Fumarate (Seroquel Tab*) 50 mg PO QPM PRN PRN Reason: INSOMNIA Tiotropium [place] (Spiriva Cap.Inh*) 1 cap INH DAILY [facility] Last Admin: 07/28/16 09:47 Dose: 1 cap Vital Signs 07/27/16 07/27/16 07/27/16 12:45 12:56 13:00 Temperature Pulse Rate 95 Respiratory 19 18 22 Rate Blood Pressure (mmHg) O2 Sat by Pulse 93 Oximetry 07/27/16 07/27/16 07/27/16 14:56 15:12 16:08 Temperature 97.9 F Pulse Rate 99 Respiratory 19 20 18 Rate Blood Pressure 151/85 (mmHg) O2 Sat by Pulse 94 Oximetry 07/27/16 07/27/16 07/27/16 17:01 18:08 18:30 Temperature Pulse Rate 91 Respiratory 18 18 Rate Blood Pressure (mmHg) O2 Sat by Pulse 93 98 Oximetry 07/27/16 07/27/16 07/27/16 20:00 21:00 22:34 Temperature Pulse Rate 94 Respiratory 22 22 22 Rate Blood Pressure (mmHg) O2 Sat by Pulse 93 Oximetry 07/27/16 07/27/16 07/28/16 23:00 23:17 00:00 Temperature 97.4 F Pulse Rate 103 Respiratory 16 22 Rate Blood Pressure 152/85 (mmHg) O2 Sat by Pulse 95 93 Oximetry 07/28/16 07/28/16 07/28/16 01:46 03:46 06:20 Temperature Pulse Rate Respiratory 18 16 20 Rate Blood Pressure (mmHg) O2 Sat by Pulse Oximetry 07/28/16 07/28/16 07/28/16 07:12 08:24 09:41 Temperature 97.7 F Pulse Rate 93 105 77 Respiratory 16 16 Rate Blood Pressure 151/83 (mmHg) O2 Sat by Pulse 87 97 92 Oximetry 07/28/16 10:37 Temperature Pulse Rate Respiratory 18 Rate Blood Pressure (mmHg) O2 Sat by Pulse Oximetry Oxygen Devices in Use Now: Nasal Cannula - 3L NC Appearance: 65 yo female sitting up in bed A+O x3, appears mildy dyspneic Eyes: No Scleral Icterus, PERRLA Ears/Nose/Mouth/Throat: NL Teeth, Lips, Gums, Mucous Membranes Moist Neck: NL Appearance and Movements; NL JVP Respiratory: Symmetrical Chest Expansion and Respiratory Effort, - - L upper- lung no air movement s/p upper lobectomy. Right lung - exp wheezes throughout, with scattered rhonchi Cardiovascular: NL Sounds; No Murmurs; No JVD, RRR, No Edema Abdominal: NL Sounds; No Tenderness; No Distention Lymphatic: No Cervical Adenopathy Extremities: No Edema, No Clubbing, Cyanosis Skin: No Rash or Ulcers, No Nodules or Sclerosis Neurological: Alert and Oriented x 3 Lines/Tubes/Other Access: Clean, Dry and Intact Peripheral IV Nutrition: Taking PO's Result Diagrams: 07/26/16 08:28 07/26/16 08:28 Additional Lab and Data: . Microbiology and Other Data: Microbiology 07/25/16 13:32 Influenza Types A,B Antigen ([place]) - Final Nasal Specimen received for Influenza A/B Molecular testing Diagnostic Imaging: CXR - NAD Assess/Plan/Problems-Billing Assessment: This is a 65 yo female with COPD, HTN, hypothyroidism, PFO, chronic back pain and a h/o lung CA s/p resection and opiate/benzo abuse. She was admitted with a COPD exacerbation, no infiltrated on CXR. - Patient Problems (1) COPD exacerbation Comment: Slowly improving, still quite dyspneic at rest and hypoxic with rest/ambulation Continue Spiriva and Mucinex Cont prednisone, prn Duonebs and doxycycline Repeat lab and chest xray now Continue aggresive pulm tolieting - if not better tomorrow will (2) Hypertension Comment: Normotensive to slightly hypertensive Continue home antihypertensives (3) Tobacco abuse Comment: Patient has a strong desire to quit smoking at this time Declines nicotine replacement in the hospital (4) GERD (gastroesophageal reflux disease) Comment: Continue omeprazole. (5) Hyponatremia Comment: Resolved with IVF (6) Hypothyroidism Comment: Continue levthyroxine at current home dose (7) DVT prophylaxis Comment: SQ heparin (8) Full code status Status and Disposition: Patient requires continued inpatient hospital care. Likely ready for dc tomorrow. May require prn home O2 for activity.
--- NOTE | 2016-07-28 12:19 | ECHO ---
Patient: ELIUD UGALDE [facility] Rec#: [id number] : 1950 Date: 07/28/2016 Age: 65y Height: 152.4 cm / 60.0 in Weight: 46.72 kg / 103.0 lbs Sex: F BSA: 1.41 Room#: [facility] Admit Date#: 07/25/2016 Type: Inpatient Referring: Madeleine Joyce Reading: Alphonso Rogers MD Infant Room Teacher: Renate Junior RUST Infant Room Teacher: Chrissy Pitt CC: Guerrero Gtz NP Transthoracic Echocardiogram Indication: Dyspnea BP: 151/83 HR: 102 Rhythm: Tachycardia Findings History: COPD, HTN, hypothyroid, PFO, s/p Left lung resection, chronic back pain, opiate use. Technical Comments: The study is technically limited due to the patient's history of COPD. The study is technically limited due to the patient's smoking history. The study was technically limited due to the patient's inability to lay in the left lateral decubitus position. Completed at 1118. Left Ventricle: The left ventricular chamber size is normal. Mild to moderate concentric left ventricular hypertrophy is observed. There is a prominent septal knuckle.There is a mean gradient of 5 mm hg at rest across the outflow. No valsalva manuever could be performed. The left ventricle appears hyperdynamic. The estimated ejection fraction is greater than 65%. Abnormal left ventricular diastolic function is observed. Abnormal left ventricular diastolic filling is observed, consistent with impaired relaxation. The patient was unable to perform a Valsalva maneuver. Left Atrium: The left atrium is moderately dilated. Right Ventricle: The right ventricular cavity size is normal. The right ventricular global systolic function is normal. Right Atrium: The right atrial cavity size is normal. Aortic Valve: The aortic valve is trileaflet. The aortic valve leaflets are mildly thickened. There is evidence of aortic sclerosis without stenosis. There is a trace of aortic regurgitation. There is no evidence of aortic stenosis. Mitral Valve: The mitral valve leaflets are mildly thickened. There is mild to moderate mitral regurgitation. The mitral regurgitant jet is eccentric. There is no evidence of mitral stenosis. Tricuspid Valve: The tricuspid valve leaflets are normal. There is mild tricuspid regurgitation. There is evidence of moderate pulmonary hypertension. There is no tricuspid stenosis. Pulmonic Valve: There is no evidence of pulmonic valve thickening. There is a trace pulmonic regurgitation. There is no pulmonic stenosis. Pericardium: There is no significant pericardial effusion. Aorta: There is no dilatation of the ascending aorta. The aortic arch is not well visualized. There is no dilation of the aortic root. Pulmonary Artery: The main pulmonary artery appears normal. Venous: The venous system is not well visualized. Conclusions Mild to moderate concentric left ventricular hypertrophy is observed. There is a prominent septal knuckle.There is a mean gradient of 5 mm hg at rest across the outflow. No valsalva manuever could be performed. The left ventricle appears hyperdynamic. The estimated ejection fraction is greater than 65%. Abnormal left ventricular diastolic filling is observed, consistent with impaired relaxation. There is a trace of aortic regurgitation. There is mild tricuspid regurgitation. There is evidence of moderate pulmonary hypertension. Compared to report of study from 12/19/2012 there does not seems to be significant change. Complete analysis of the LV outflow tract gradient could not be accomplished due to inability to perform a valsalva manuever. Measurements Name Value Normal Range RVIDd (AP) 2D 2.3 cm (0.9 - 2.6) RVDdMajor (2D) 3.2 cm (2.2 - 4.4) RAd ISD 4CH 4.5 cm (3.4 - 4.9) RA (A4C)W 3.8 cm (2.9 - 4.6) IVSd (2D) 1.3 cm (0.6 - 1) LVPWd (2D) 1.1 cm (0.6 - 1) LVIDd (2D) 3.8 cm (3.6 - 5.4) LVIDs (2D) 2.4 cm - LV FS (2D) 36 % (25 - 45) Aortic Annulus 1.7 cm (1.4 - 2.6) Ao root diameter (2D) 2.7 cm (2.1 - 3.5) Ascending Ao 3.3 cm (2.1 - 3.4) LA dimension (AP) 2D 3.9 cm (2.3 - 3.8) LAd ISD 4CH 5.5 cm (2.9 - 5.3) LA ISD 4CH W 4.3 cm (2.5 - 4.5) Name Value Normal Range LA ESV SP 4CH (A/L) 64 ml - LA ESV SP 2CH (A/L) 68 ml - LA ESV BP (A/L) 67 ml - LA ESV BP (A/L) index 47.33 ml/m2 - LA ESV SP 4CH (MOD) 59 ml - LA ESV SP 2CH (MOD) 68 ml - Name Value Normal Range MV E-wave Vmax 1 m/sec - MV deceleration time 146 msec - MV A-wave Vmax 1.3 m/sec - MV E:A ratio 0.77 ratio - LV septal e' Vmax 0.04 m/sec - LV lateral e' Vmax 0.07 m/sec - LV E:e' septal ratio 25 ratio - LV E:e' lateral ratio 14.29 ratio - Name Value Normal Range AV Vmax 1.9 m/sec - AV VTI 28.9 cm - AV peak gradient 14.08 mmHg - AV mean gradient 8.18 mmHg - LVOT Vmax 1.7 m/sec - LVOT VTI 28 cm - LVOT peak gradient 11.29 mmHg - LVOT mean gradient 5.75 mmHg - Name Value Normal Range TR Vmax 3.2 m/sec - TR peak gradient 40 mmHg - RAP 8 mmHg - RVSP 48 mmHg - Name Value Normal Range PV Vmax 1.3 m/sec - PV peak gradient 6.84 mmHg -
--- NOTE | 2016-07-28 12:39 | RAD ---
INDICATION: Dyspnea, hypoxia. History of COPD. Post LEFT upper lobectomy in 2012. COMPARISON: July 25, 2016 TECHNIQUE: Dual energy PA and routine lateral views of the chest were obtained. REPORT: Elevated lung volumes and moderately coarse interstitial markings without change. Rarefaction of the upper lung zone markings greater on the RIGHT than the LEFT. Postsurgical change of LEFT upper lobe resection with associated mild leftward mediastinal shift. No alveolar consolidation, focal pulmonary lesion, pleural effusion, pneumothorax. Negative for cardiomegaly. Mildly tortuous descending thoracic aorta. Unremarkable central pulmonary vasculature. Postsurgical deformity of the peripheral LEFT upper bony thorax without change. Multilevel thoracic degenerative spondylosis with increased thoracic kyphosis. No suspicious focal osseous lesions evident. IMPRESSION: Stigmata of advanced chronic obstructive pulmonary disease and emphysema as well as postsurgical change of LEFT upper lobe resection. No acute cardiopulmonary process evident.
[2016-07-28 13:37] LABS: Hematocrit 36 % (35-47); Hemoglobin 11.8 g/dl (12.0-16.0); Mean Corpuscular HGB Conc 33 g/dl (31-36); Mean Corpuscular Hemoglobin 32 pg (27-31); Mean Corpuscular Volume 99 fL (80-97); Mean Platelet Volume 8 um3 (7.4-10.4); Red Blood Count 3.65 10^6/ul (4.0-5.4); Red Cell Distribution Width 14 % (10.5-15); White Blood Count 15.8 10^3/ul (3.5-10.8)
[2016-07-28 13:50] LABS: Add Diff/Slide Review? Slide Review Added; Comments Flag Yes
[2016-07-28 14:00] LABS: BUN/Creatinine Ratio 21.9 (8-20); Calcium 9.1 mg/dL (8.6-10.3); EGFR African American 120.1 (>60); EGFR Non-African American 93.4 (>60); Potassium 3.7 mmol/L (3.5-5.0)
[2016-07-28 14:05] LABS: Troponin I 0.04 ng/mL (<0.04)
[2016-07-28] MEDS ORDERED: NS 0.9% 1000 ML* 1,000 ML IV SCH (14:30)
[2016-07-29] MEDS: ALPRAZolam TAB* 0.5 MG PO PRN ×2 (00:43→10:40)
[2016-07-29] MEDS: Ibuprofen TAB* 400 MG PO PRN ×2 (00:43→10:37)
[2016-07-29] MEDS: oxyCODONE/Acetamin 5/325 MG* TAB PO PRN ×2 (00:43→06:01)
[2016-07-29] MEDS: Albuterol/Ipratropium NEB.SOL* Albuterol 2.5 MG/Ipratropium 0.5 MG 3 ML INH PRN ×2 (01:00→12:03)
[2016-07-29] MEDS: Heparin VIAL(*) 5000 UNITS/ML VIAL (FIVE THOUSAND) SUBCUT SCH (05:56)
[2016-07-29] MEDS: Levothyroxine TAB* 100 MCG TAB PO SCH (05:56)
[2016-07-29 06:23] LABS: Hematocrit 33 % (35-47); Hemoglobin 10.9 g/dl (12.0-16.0); Mean Corpuscular HGB Conc 33 g/dl (31-36); Mean Corpuscular Hemoglobin 33 pg (27-31); Mean Corpuscular Volume 99 fL (80-97); Mean Platelet Volume 8 um3 (7.4-10.4); Red Blood Count 3.34 10^6/ul (4.0-5.4); Red Cell Distribution Width 14 % (10.5-15); White Blood Count 10.9 10^3/ul (3.5-10.8)
[2016-07-29 06:26] LABS: Add Diff/Slide Review? Slide Review Added; Comments Flag Yes
[2016-07-29 06:39] LABS: BUN/Creatinine Ratio 22.6 (8-20); Calcium 8.8 mg/dL (8.6-10.3); EGFR African American 124.6 (>60); EGFR Non-African American 96.9 (>60); Potassium 3.2 mmol/L (3.5-5.0)
[2016-07-29 07:44] VITALS: BP 179/91
[2016-07-29 08:07] LABS: Eosinophils % 2 % (0-6); Hypochromasia 1+; Immature Granulocytes 3 % (0-9); Myelocytes % 3 % (0-1); Neutrophil % 63 % (38-83); Reactive Lymph % 1 % (0-6)
[2016-07-29] MEDS: Tiotropium CAP.INH* CAP.INH/18 MCG INH SCH (08:36)
[2016-07-29] MEDS: Omeprazole CAP* 20 MG PO SCH (10:36)
[2016-07-29] MEDS: DOXYcycline CAP(*) 100 MG PO SCH (10:39)
[2016-07-29] MEDS: predniSONE TAB* 20 MG PO SCH (10:39)
[2016-07-29] MEDS: DULoxetine DR CAP* 60 MG CAP.DR PO SCH (10:39)
[2016-07-29] MEDS: Atenolol TAB* 25 MG PO SCH (10:41)
[2016-07-29] MEDS: amLODIPine TAB* 5 MG PO SCH (10:42)
[2016-07-29] MEDS: guaiFENesin ER TAB 600 MG PO SCH (10:44)
[2016-07-29] MEDS ORDERED: Potassium Chlor TAB* 20 MEQ TAB.ER PO ONE (11:27)
--- NOTE | 2016-07-29 11:52 | DCNOTE ---
Subjective Date of Service: 07/29/16 Interval History: . pt reports she is much much better today and would like to go home. Denies SOB or CP. No fevers or chills. continues to have a productive cough with thick sputum but reports it is much better. Reports good appetite. No N/V/D. Objective Active Medications: Albuterol/Ipratropium (Duoneb Neb.Tracey*) 1 neb INH Q4H PRN PRN Reason: SOB/WHEEZING Last Admin: 07/29/16 01:00 Dose: 1 neb Alprazolam (Xanax Tab*) 0.5 mg PO TID PRN PRN Reason: ANXIETY Last Admin: 07/29/16 10:40 Dose: 0.5 mg Amlodipine Besylate (Norvasc Tab*) 5 mg PO QAM [facility] Last Admin: 07/29/16 10:42 Dose: 5 mg Atenolol (Tenormin Tab*) 25 mg PO QAM [facility] Last Admin: 07/29/16 10:41 Dose: 25 mg Doxycycline Hyclate (Vibramycin Cap(*)) 100 mg PO BID [facility] Last Admin: 07/29/16 10:39 Dose: 100 mg Duloxetine HCl (Cymbalta Cap*) 60 mg PO DAILY [facility] Last Admin: 07/29/16 10:39 Dose: 60 mg Guaifenesin (Mucinex*) 1,200 mg PO BID [facility] Last Admin: 07/29/16 10:44 Dose: 1,200 mg Heparin Sodium (Porcine) (Heparin Vial(*)) 5,000 units SUBCUT Q8HR [facility] Last Admin: 07/29/16 05:56 Dose: 5,000 units Ibuprofen (Motrin Tab*) 400 mg PO Q6H PRN PRN Reason: PAIN Last Admin: 07/29/16 10:37 Dose: 400 mg Levothyroxine Sodium (Synthroid Tab*) 200 mcg PO DAILY@0600 [facility] Last Admin: 07/29/16 05:56 Dose: 200 mcg Omeprazole (Prilosec Cap*) 40 mg PO BID [facility] Last Admin: 07/29/16 10:36 Dose: 40 mg Ondansetron HCl (Zofran Inj*) 4 mg IV Q6H PRN PRN Reason: NAUSEA Last Admin: 07/25/16 13:26 Dose: 4 mg Oxycodone/Acetaminophen (Percocet 5/325 Tab*) 1 tab PO Q4H PRN PRN Reason: PAIN Last Admin: 07/29/16 06:01 Dose: 1 tab Prednisone (Deltasone Tab*) 40 mg PO DAILY [facility] Last Admin: 07/29/16 10:39 Dose: 40 mg Quetiapine Fumarate (Seroquel Tab*) 50 mg PO QPM PRN PRN Reason: INSOMNIA Tiotropium [place] (Spiriva Cap.Inh*) 1 cap INH DAILY [facility] Last Admin: 07/29/16 08:36 Dose: 1 cap Vital Signs 07/28/16 07/28/16 07/28/16 12:37 15:17 16:42 Temperature 97.4 F Pulse Rate 85 97 Respiratory 17 16 78 Rate Blood Pressure 135/76 (mmHg) O2 Sat by Pulse 97 16 Oximetry 07/28/16 07/28/16 07/28/16 16:50 18:50 20:00 Temperature Pulse Rate Respiratory 18 17 22 Rate Blood Pressure (mmHg) O2 Sat by Pulse Oximetry 07/28/16 07/28/16 07/29/16 20:55 23:26 00:43 Temperature 97.7 F Pulse Rate 92 Respiratory 22 16 22 Rate Blood Pressure 148/84 (mmHg) O2 Sat by Pulse 99 Oximetry 07/29/16 07/29/16 07/29/16 01:04 02:43 06:01 Temperature Pulse Rate 78 Respiratory 16 18 20 Rate Blood Pressure (mmHg) O2 Sat by Pulse 98 Oximetry 07/29/16 07/29/16 07/29/16 07:40 08:01 08:37 Temperature 98.2 F Pulse Rate 86 19 Respiratory 19 98 Rate Blood Pressure 179/91 (mmHg) O2 Sat by Pulse 98 98 Oximetry 07/29/16 07/29/16 07/29/16 08:38 08:39 10:40 Temperature Pulse Rate 86 Respiratory 19 16 Rate Blood Pressure (mmHg) O2 Sat by Pulse 98 98 Oximetry Oxygen Devices in Use Now: Nasal Cannula - 3L NC Appearance: 65 yo female appears chronically ill A+O x3 in NAD Eyes: No Scleral Icterus, PERRLA Ears/Nose/Mouth/Throat: NL Teeth, Lips, Gums, Mucous Membranes Moist Neck: NL Appearance and Movements; NL JVP Respiratory: Symmetrical Chest Expansion and Respiratory Effort, Clear to Auscultation Cardiovascular: NL Sounds; No Murmurs; No JVD, RRR, No Edema Abdominal: NL Sounds; No Tenderness; No Distention Lymphatic: No Cervical Adenopathy Extremities: No Edema, No Clubbing, Cyanosis Skin: No Rash or Ulcers, No Nodules or Sclerosis Neurological: Alert and Oriented x 3, NL Sensation, NL Gait, NL Muscle Strength and Tone Lines/Tubes/Other Access: Clean, Dry and Intact Peripheral IV Nutrition: Taking PO's Result Diagrams: 07/29/16 05:54 07/29/16 05:54 Additional Lab and Data: . Microbiology and Other Data: Microbiology 07/25/16 13:32 Influenza Types A,B Antigen ([place]) - Final Nasal Specimen received for Influenza A/B Molecular testing Diagnostic Imaging: CXR - NAD Assess/Plan/Problems-Billing Assessment: This is a 65 yo female with COPD, HTN, hypothyroidism, PFO, chronic back pain and a h/o lung CA s/p resection and opiate/benzo abuse. She was admitted with a COPD exacerbation, no infiltrated on CXR. - Patient Problems (1) COPD exacerbation Comment: Much improvement today Continue Spiriva and Mucinex Cont prednisone, prn Duonebs and doxycycline Plan for home O2 3L with ambulation - on RA ambulating 83% with 3L NC 93% with ambulation. Refer to Dr. Fernandez as outpt (2) Anxiety Comment: - pt is asking for percocet or xanax at home - discussed with pcp - she has a hx of abuse and overdose. - Plan for Buspar in recommednation with PCP. (3) Hypertension Comment: Normotensive to slightly hypertensive Continue home antihypertensives (4) Tobacco abuse Comment: Patient has a strong desire to quit smoking at this time Declines nicotine replacement in the hospital or at discharge (5) GERD (gastroesophageal reflux disease) Comment: Continue omeprazole. (6) Hyponatremia Comment: Resolved with IVF (7) Hypothyroidism Comment: Continue levthyroxine at current home dose (8) DVT prophylaxis Comment: SQ heparin (9) Full code status Status and Disposition: Plan for DC to home today with oxygen.
--- NOTE | 2016-07-30 10:10 | DS ---
DISCHARGE SUMMARY: DATE OF ADMISSION: 07/25/16 DATE OF DISCHARGE: 07/29/16 PROVIDER: Slade Stein NP. ATTENDING PHYSICIAN: Dr. Garcia *(report dictated by Slade Stein NP). PRIMARY CARE PROVIDER: Guerrero Gtz NP. REFERRING TO: Aurelia Fernandez MD. PRIMARY DIAGNOSES: 1. Chronic obstructive pulmonary disease exacerbation. 2. Anxiety. 3. Tobacco abuse. 4. Hyponatremia. SECONDARY DIAGNOSES: 1. Hypertension. 2. Gastroesophageal reflux disease. 3. Hypothyroidism. 4. Hiatal hernia. 5. History of patent foramen ovale. 6. Chronic back pain. 7. History of opioid and benzodiazepine abuse. 8. History of adenocarcinoma of the left lung, status post chemotherapy and left upper lobe lobectomy. DISCHARGE MEDICATIONS: 1. Seroquel 50 mg p.o. q.p.m. p.r.n. 2. Omeprazole 40 mg p.o. b.i.d. 3. Duloxetine HCl 60 mg p.o. daily. 4. Albuterol HFA inhaler 2 puffs INH q.4 hours p.r.n. 5. Albuterol 2.5 mg/3 mL INH q.4 hours p.r.n. 6. Atenolol 25 mg p.o. q.a.m. 7. Amlodipine 5 mg p.o. q.a.m. 8. Atrovent 0.5 mg neb solution INH q.i.d. p.r.n. 9. Claritin 10 mg p.o. daily. 10. Synthroid 200 mcg p.o. daily. 11. Flovent 220 mcg one puff INH b.i.d. 12. Prednisone 40 mg p.o. daily x4 days. NEW MEDICATIONS: 1. BuSpar 7.5 mg p.o. b.i.d. for anxiety. 2. Doxycycline 500 mg p.o. b.i.d. to finish a 7-day course in total. HISTORY OF PRESENT ILLNESS AND HOSPITAL COURSE: Please see history and physical by Angelique Linton NP, for full admission details; but in summary, this is a 65-year-old female with a past medical history of lung cancer, status post left upper lobectomy, COPD, not on home O2, current tobacco abuse, who presented to the emergency department on 07/25/16 with report of shortness of breath and cough. Ms. Glover reports she has been sick for approximately 3 weeks. She initially had symptoms of cold with congestion, arthralgias, myalgias, and some shortness of breath. She was seen by her primary care provider who prescribed her a steroid taper. She reports that she never really felt better; in the last couple of days, she had increasing cough, shortness of breath with thick sputum and thought she had low-grade fevers and presented to the emergency department for further evaluation. In the emergency department, she was noted to have a white blood cell count of 17.3, mild elevation in troponin of 0.06 and a heart rate of 115. She was noted to be afebrile. Her chest x-ray showed no acute process. The patient was admitted to the hospitalist service for COPD exacerbation and started on IV Solu-Medrol and doxycycline. The patient's influenza A and B were negative. The patient has done well throughout the hospitalization with slow improvement. She has required oxygen throughout hospitalization. Her oxygen requirements have improved; however, she continues to require 3 L with ambulation as on room air. With ambulation, her O2 sat drops to around 80% to 83%. The patient is stable for discharge to home with home O2. Clinically, the patient has had much improvement and today on exam, she has good air movement throughout her lung. The patient continues to have a cough, but reports that this is much better. She has remained afebrile. The patient's blood cultures were negative with no growth on day 4. Her leukocytosis has decreased to 10.9; however, she is on steroid therapy. In regards to her initial elevated troponin, which were trended to be 0.06, 0.01, 0.04, and 0.04. She has had no EKG changes and this was thought to be secondary to demand ischemia. The patient did have an ABG on admission, which was normal. DISCHARGE PLAN: 1. Follow up with Guerrero Gtz NP, in the next 3 to 5 days. 2. The patient has been referred to Dr. Fernandez due to her advanced lung disease. 3. The patient was encouraged to continue inhaled nebulizers at home for the next couple of days. 4. The patient was discharged, to return to the emergency department if there is any worsening or concerning symptoms. TIME SPENT: Approximately 60 minutes was spent on this discharge. SLADE STEIN NP CC: Guerrero Gtz NP; Dr. Fernandez* [id number]/CPS #: [id number] MTDD
== END 2016-07-29 13:20 | disposition home or self-care (01) | DRG 140 ==
LOC: ED 09:11 → MED 13:04
PROVIDERS: ADMIT Internal Medicine; ATTEND Hospitalist
DX: J44.1 Chronic obstructive pulmonary disease with (acute) exacerbation (principal); E87.1 Hypo-osmolality and hyponatremia; I24.8 Other forms of acute ischemic heart disease; Q21.1 Atrial septal defect; F41.9 Anxiety disorder, unspecified; Z72.0 Tobacco use; I10 Essential (primary) hypertension; K21.9 Gastro-esophageal reflux disease without esophagitis; E03.9 Hypothyroidism, unspecified; K44.9 Diaphragmatic hernia without obstruction or gangrene; G89.29 Other chronic pain; M54.9 Dorsalgia, unspecified; D72.829 Elevated white blood cell count, unspecified; E04.9 Nontoxic goiter, unspecified; E78.00 Pure hypercholesterolemia, unspecified; M81.0 Age-related osteoporosis without current pathological fracture; M41.9 Scoliosis, unspecified; H91.91 Unspecified hearing loss, right ear; G43.909 Migraine, unspecified, not intractable, without status migrainosus; F32.9 Major depressive disorder, single episode, unspecified; R09.02 Hypoxemia; Z85.118 Personal history of other malignant neoplasm of bronchus and lung; Z88.6 Allergy status to analgesic agent; Z91.040 Latex allergy status; Z87.01 Personal history of pneumonia (recurrent); Z90.710 Acquired absence of both cervix and uterus; Z82.49 Family history of ischemic heart disease and other diseases of the circulatory system
CPT/HCPCS: 36415; 36600; 71020; 80048; 80053; 82803; 83605; 83880; 84145; 84484; 85025; 86140; 87040; 87502; 93005; 93306; 94640; 94760; 99283; 99406; A9270-GY; J1644; J2270; J2405; J2930; J7512

== ENCOUNTER 2016-08-22 13:56 | Emergency (ER) | payer BC ==
[2016-08-22] MEDS ORDERED: methylPREDNISolone 125 MG* 2 ML VIAL IV ONE (14:34)
[2016-08-22] MEDS ORDERED: Levofloxacin 750 MG IVPREMIX(* 750 MG/150 ML BAG IVPB ONE (14:38)
[2016-08-22] MEDS ORDERED: Morphine INJ* 4 MG/ML 1 ML CARPUJECT IV ONE (14:39)
[2016-08-22] MEDS ORDERED: NS 0.9% 1000 ML* 1,000 ML IV ONE (14:39)
[2016-08-22] MEDS ORDERED: Ondansetron INJ* 2 MG/ML VIAL IV ONE (14:39)
[2016-08-22 14:53] LABS: Hematocrit 35 % (35-47); Hemoglobin 11.9 g/dl (12.0-16.0); Mean Corpuscular HGB Conc 34 g/dl (31-36); Mean Corpuscular Hemoglobin 33 pg (27-31); Mean Corpuscular Volume 98 fL (80-97); Mean Platelet Volume 8 um3 (7.4-10.4); Red Blood Count 3.61 10^6/ul (4.0-5.4); Red Cell Distribution Width 16 % (10.5-15); White Blood Count 13.8 10^3/ul (3.5-10.8)
--- NOTE | 2016-08-22 14:58 | RAD ---
INDICATION: ] Shortness of breath. Relevant surgical history includes left upper lobectomy. COMPARISON: Most recent comparison radiograph is July 28, 2016 TECHNIQUE: Single AP portable view of the chest was obtained. FINDINGS: Image quality is compromised due to the relative inferiority of a portable chest x-ray. Stable postoperative findings include surgical clips overlying the left upper hilum and overall reduction in left lung volume. The heart and mediastinum exhibit normal size and contour. The lungs are grossly clear. There is no evidence of a large pleural effusion. Visualized bones are normal for the patient's age. IMPRESSION: No radiographic evidence for acute cardiopulmonary abnormality on this portable chest x-ray.
[2016-08-22] MEDS ORDERED: NS 0.9% 1000 ML* 400 ML IV ONE (15:07)
[2016-08-22 15:09] LABS: ALT 15 U/L (7-52); Albumin 3.4 g/dL (3.2-5.2); Alkaline Phosphatase 70 U/L (34-104); BUN/Creatinine Ratio 14.1 (8-20); Blood Urea Nitrogen 12 mg/dL (6-24); CO2 Carbon Dioxide 29 mmol/L (22-32); Calcium 9.6 mg/dL (8.6-10.3); EGFR African American 86.6 (>60); EGFR Non-African American 67.3 (>60); Glucose 81 mg/dL (70-100); Total Protein 6.4 g/dL (6.4-8.9)
[2016-08-22 15:10] LABS: Troponin I 0.01 ng/mL (<0.04)
[2016-08-22 15:32] LABS: Chloride 84 mmol/L (101-111); Sodium 122 mmol/L (133-145)
--- NOTE | 2016-08-22 17:29 | ED ---
Nehal Winkler Michael, scribed for Noy Das MD on 08/22/16 at 1452 . Shortness of Breath - HPI Summary HPI Summary: 65 y/o female was BIBA to the ED presenting with SOB that started one day ago. The pt took her pulse Ox and it was 84 when normally it is 97. She had 3 L of oxygen last night to alleviate the SOB. The pt also c/o a cough, lower back pain , and a NELSON. THe PMHx is significant for COPD. - History of Current Complaint Chief Complaint: EDRespiratoryDistress Time Seen by Provider: 08/22/16 14:14 Hx Obtained From: Patient, EMS, Medical Records Onset/Duration: Sudden Onset, Lasting Days Timing: Constant Current Severity: Moderate Dyspnea At: Rest Alleviating Factors: Oxygen Associated Signs & Symptoms: Cough (Productive) - back pain. NELSON. SOB. - Allergy/Home Medications Allergies/Adverse Reactions: Allergies Allergy/AdvReac Type Severity Reaction Status Date / Time Aspirin Allergy Anaphylatic Verified 08/22/16 14:27 Shock Latex AdvReac Mild Rash Verified 08/22/16 14:27 PMH/Surg Hx/FS Hx/Imm Hx Endocrine/Hematology History: Reports: Hx Thyroid Disease - hypothyroid, Other Endocrine/Hematological Disorders - Benign goiter Denies: Hx Bone Marrow Disease, Hx Diabetes, Hx Systemic Lupus Erythematosus Cardiovascular History: Reports: Hx Hypercholesterolemia - was high before cancer,now off meds., Hx Hypertension, Other Cardiovascular Problems/Disorders - patent foramen ovale; Murmur Denies: Hx Congestive Heart Failure, Hx Pacemaker/ICD Respiratory History: Reports: Hx Chronic Obstructive Pulmonary Disease (COPD), Hx Lung Cancer - Left upper lobectomy, Hx Pneumonia, Other Respiratory Problems/ Disorders - lung cancer, LOBECTOMY 09/11/11 GI History: Reports: Hx Gastroesophageal Reflux Disease, Hx Hiatal Hernia, Other GI Disorders - hiatal hernia, colitis. 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, Hx Osteoporosis - Possible, Hx Scoliosis, Other Musculoskeletal History - scoliosis Denies: Hx Rheumatoid Arthritis Sensory History: Reports: Hx Cataracts - PATIENT STATES BEGINING OF CATARACTS LEFT EYE, Hx Contacts or Glasses, Hx Hearing Problem - right Denies: Hx Hearing Aid Opthamlomology History: Reports: Hx Cataracts - PATIENT STATES BEGINING OF CATARACTS LEFT EYE, Hx Contacts or Glasses Neurological History: Reports: Hx Headaches - frequent h/a's, Hx Migraine - Rare post menopause Psychiatric History: Reports: Hx Anxiety, Hx Depression, Hx Community Mental Health Tx, Hx Substance Abuse - opiods Denies: Hx Panic Disorder, Hx Inpatient Treatment - Cancer History Cancer Type, Location and Year: LUNG CA, DIAGNOSED July 2012 Hx Chemotherapy: Yes Hx Radiation Therapy: No Hx Palliative Cancer Treatment: No - Surgical History Surgery Procedure, Year, and Place: LEFT UPPER LUNG REMOVED 09/2012, HYSTERECTOMY , tonsillectomy Hx Anesthesia Reactions: No - Immunization History Date of Tetanus Vaccine: UTD Date of Influenza Vaccine: 05/01/16 Infectious Disease History: No Infectious Disease History: Denies: Traveled Outside the [place] in Last 30 Days - Family History Known Family History: Positive: Cardiac Disease - Sudden cardiac arrest (father) , Other - son -- glioblastoma. UC mother - Social History Occupation: Retired Lives: Alone Alcohol Use: None Hx Substance Use: No Substance Use Type: Reports: None Substance Use Comment - Amount & Last Used: opiates Hx Tobacco Use: Yes Smoking Status (MU): Current Every Day Smoker Type: Cigarettes Amount Used/How Often: 1/2 pack a day Length of Time of Smoking/Using Tobacco: 47 years Have You Smoked in the Last Year: Yes Review of Systems Positive: Shortness Of Breath, Cough Positive: Other - lower back pain Positive: Headache All Other Systems Reviewed And Are Negative: Yes Physical Exam Triage Information Reviewed: Yes Vital Signs On Initial Exam: Initial Vitals Pulse Pulse Ox 69 94 08/22/16 14:20 08/22/16 14:20 Vital Signs Reviewed: Yes Appearance: Positive: Well-Appearing, No Pain Distress Skin: Positive: Warm, Skin Color Reflects Adequate Perfusion, Dry Eyes: Positive: EOMI, ADORE ENT: Positive: Hearing grossly normal, TMs normal Neck: Positive: Supple, Nontender Respiratory/Lung Sounds: Positive: Wheezes - expiratory wheeze Cardiovascular: Positive: RRR, Other - no gallops. Negative: Murmur, Rub Abdomen Description: Positive: Nontender, Soft, Other: - no rebound. Negative: Guarding Bowel Sounds: Positive: Present Musculoskeletal: Positive: Strength/ROM Intact. Negative: Edema Left, Edema Right Neurological: Positive: Sensory/Motor Intact, Alert, Oriented to Person Place, Time, CN Intact II-III Psychiatric: Positive: Affect/Mood Appropriate - Solon Coma Scale Coma Scale Total: 15 Diagnostics - Vital Signs Vital Signs Temp Pulse Resp BP Pulse Ox 08/22/16 14:30 20 139/92 08/22/16 14:27 99 F 76 17 132/77 91 08/22/16 14:22 99 F 67 18 132/77 91 08/22/16 14:21 75 132/77 94 08/22/16 14:20 69 94 - Laboratory Lab Results: Lab Results 08/22/16 08/22/16 08/22/16 Range/Units 14:47 14:47 14:47 WBC 13.8 H (3.5-10.8) 10^3/ul RBC 3.61 L (4.0-5.4) 10^6/ul Hgb 11.9 L (12.0-16.0) g/dl Hct 35 (35-47) % MCV 98 H (80-97) fL MCH 33 H (27-31) pg MCHC 34 (31-36) g/dl RDW 16 H (10.5-15) % Plt Count 319 (150-450) 10^3/ul MPV 8 (7.4-10.4) um3 Neut % (Auto) 79.9 (38-83) % Lymph % (Auto) 8.9 L (25-47) % Marin % (Auto) 9.7 H (1-9) % Eos % (Auto) 0.8 (0-6) % Baso % (Auto) 0.7 (0-2) % Absolute Neuts (auto) 11.0 H (1.5-7.7) 10^3/ul Absolute Lymphs (auto) 1.2 (1.0-4.8) 10^3/ul Absolute Monos (auto) 1.3 H (0-0.8) 10^3/ul Absolute Eos (auto) 0.1 (0-0.6) 10^3/ul Absolute Basos (auto) 0.1 (0-0.2) 10^3/ul Absolute Nucleated RBC 0 10^3/ul Nucleated RBC % 0 Sodium 122 L (133-145) mmol/L Potassium TNP Chloride 84 L (101-111) mmol/L Carbon Dioxide 29 (22-32) mmol/L Anion Gap TNP BUN 12 (6-24) mg/dL Creatinine 0.85 (0.51-0.95) mg/dL Est GFR ( Amer) 86.6 (>60) Est GFR (Non-Af Amer) 67.3 (>60) BUN/Creatinine Ratio 14.1 (8-20) Glucose 81 (70-100) mg/dL Lactic Acid 1.1 (0.5-2.0) mmol/L Calcium 9.6 (8.6-10.3) mg/dL Total Bilirubin 0.40 (0.2-1.0) mg/dL AST TNP ALT 15 (7-52) U/L Alkaline Phosphatase 70 (34-104) U/L Troponin I 0.01 (<0.04) ng/mL Total Protein 6.4 (6.4-8.9) g/dL Albumin 3.4 (3.2-5.2) g/dL Globulin 3.0 (2-4) g/dL Albumin/Globulin Ratio 1.1 (1-3) // Range/Units 16:00 WBC (3.5-10.8) 10^3/ul RBC (4.0-5.4) 10^6/ul Hgb (12.0-16.0) g/dl Hct (35-47) % MCV (80-97) fL MCH (27-31) pg MCHC (31-36) g/dl RDW (10.5-15) % Plt Count (150-450) 10^3/ul MPV (7.4-10.4) um3 Neut % (Auto) (38-83) % Lymph % (Auto) (25-47) % [place] % (Auto) (1-9) % Eos % (Auto) (0-6) % Baso % (Auto) (0-2) % Absolute Neuts (auto) (1.5-7.7) 10^3/ul Absolute Lymphs (auto) (1.0-4.8) 10^3/ul Absolute Monos (auto) (0-0.8) 10^3/ul Absolute Eos (auto) (0-0.6) 10^3/ul Absolute Basos (auto) (0-0.2) 10^3/ul Absolute Nucleated RBC 10^3/ul Nucleated RBC % Sodium (133-145) mmol/L Potassium 4.2 Chloride (101-111) mmol/L Carbon Dioxide (22-32) mmol/L Anion Gap BUN (6-24) mg/dL Creatinine (0.51-0.95) mg/dL Est GFR ( Amer) (>60) Est GFR (Non-Af Amer) (>60) BUN/Creatinine Ratio (8-20) Glucose (70-100) mg/dL Lactic Acid (0.5-2.0) mmol/L Calcium (8.6-10.3) mg/dL Total Bilirubin (0.2-1.0) mg/dL AST 23 ALT (7-52) U/L Alkaline Phosphatase (34-104) U/L Troponin I (<0.04) ng/mL Total Protein (6.4-8.9) g/dL Albumin (3.2-5.2) g/dL Globulin (2-4) g/dL Albumin/Globulin Ratio (1-3) Result Diagrams: 08/22/16 14:47 08/22/16 16:00 Lab Statement: Any lab studies that have been ordered have been reviewed, and results considered in the medical decision making process. - Radiology CXR Xray Interpretation: No Acute Changes Radiology Interpretation Completed By: Radiologist - EKG EK EKG Rhythm: Sinus Rhythm - 65 bpm Ectopy: PACs EKG Comparison: No Significant Change - from EKG on 05/07/16-similar V2V3 boarderline non specific. Course/Dx - Course Course Of Treatment: 65 yo female with known copd sats much better on 2l after neb patient does have an elevated wbc neg cxray. 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 She also understands the risk of and severe respiratory distress. She is being sent with prednisone and levaquin - Diagnoses Provider Diagnoses: COPD exacerbation Discharge - Discharge Plan Condition: Stable Disposition: HOME Prescriptions: Levofloxacin TAB* [Levaquin TAB*] 750 mg PO DAILY #6 tab predniSONE TAB* [Deltasone TAB*] 60 mg PO DAILY #4 tab Patient Education Materials: COPD (Chronic Obstructive Pulmonary Disease) (ED) Referrals: Storm,Shawnti R, TARIFF COUNSEL [Primary Care Provider] - Additional Instructions: You should follow up with Guerrero Gtz (TARIFF COUNSEL) within the next 2 days. The documentation as recorded by the Nehal crawford Michael accurately reflects the service I personally performed and the decisions made by me, Noy Das MD.
[2016-08-22 17:33] VITALS: BP 152/101
== END 2016-08-22 17:56 | disposition home or self-care (01) ==
LOC: ED 13:56
DX: J44.1 Chronic obstructive pulmonary disease with (acute) exacerbation (principal); R05 Cough; M54.9 Dorsalgia, unspecified; R51 Headache; R06.02 Shortness of breath; F17.210 Nicotine dependence, cigarettes, uncomplicated
CPT/HCPCS: 36415; 71010; 80053; 83605; 84484; 85025; 93005; 96374; 96375; 99284; J2270; J2405; J2930

== ENCOUNTER 2016-08-24 00:45 | Observation (INO) | payer BC ==
[2016-08-24] MEDS ORDERED: Albuterol/Ipratropium NEB.SOL* Albuterol 2.5 MG/Ipratropium 0.5 MG 3 ML INH ONE (00:57)
[2016-08-24] MEDS ORDERED: NS 0.9% 1000 ML* 1,000 ML IV ONE (01:37)
[2016-08-24 01:38] LABS: Hematocrit 32 % (35-47); Hemoglobin 10.9 g/dl (12.0-16.0); Mean Corpuscular HGB Conc 34 g/dl (31-36); Mean Corpuscular Hemoglobin 33 pg (27-31); Mean Corpuscular Volume 96 fL (80-97); Mean Platelet Volume 9 um3 (7.4-10.4); Red Cell Distribution Width 16 % (10.5-15); White Blood Count 10.8 10^3/ul (3.5-10.8)
[2016-08-24 01:54] LABS: ALT 14 U/L (7-52); Albumin 3.1 g/dL (3.2-5.2); Alkaline Phosphatase 58 U/L (34-104); BUN/Creatinine Ratio 16.9 (8-20); Blood Urea Nitrogen 12 mg/dL (6-24); CO2 Carbon Dioxide 25 mmol/L (22-32); Calcium 8.4 mg/dL (8.6-10.3); Chloride 84 mmol/L (101-111); EGFR African American 106.6 (>60); EGFR Non-African American 82.9 (>60); Globulin 2.7 g/dL (2-4); Glucose 95 mg/dL (70-100); Total Protein 5.8 g/dL (6.4-8.9)
[2016-08-24 01:58] LABS: Sodium 117 mmol/L (133-145)
[2016-08-24] MEDS ORDERED: Acetaminophen TAB* 325 MG PO ONE (02:23)
--- NOTE | 2016-08-24 02:57 | HP ---
H&P (Free Text) History and Physical: PCP: Salvador Gtz NP Date/Time of Evaluation: 08/24/2016 0215 CC: SOB HPI: Mrs Glover is a 65YO female HX adenoCA s/p L upper lobectomy & COPD continuing to smoke who was seen in [facility] ED 08/22/2016 for SOB, diagnosed w/ acute bronchitis & discharged w/ RXs for levofloxacin & steroids which she did not olive picker from the pharmacy and so re-presents tonight with worsening SOB. She reports fatigue & low grade fever "up to about 100" for the last month. She has had poor PO intake for the past few days and was vomiting, last time Wednesday. She denies chest pain, change in bowels, productive cough, or other issues. Vitals are stable. Labs are remarkable for a Na of 117, previously 122 & stable anemia. CXR is negative for acute changes. PMedHx adenoCA L lung s/p upper lobectomy & chemoTX COPD PFO HTN HLD hypothyroidism chronic LBP HX opioid & benzodiazepine abuse hiatal hernia Allergies Aspirin Allergy (Verified 08/24/16 00:52) Anaphylatic Shock Latex Adverse Reaction (Mild, Verified 08/24/16 00:52) Rash swelling at contact area Ambulatory Orders Nursing to reconcile. Atenolol [Atenolol-] 25 mg PO QAM 06/06/12 Amlodipine Besylate 5 mg PO QAM 07/28/12 Levothyroxine TAB* [Synthroid 25 MCG TAB*] 200 mcg PO DAILY 02/09/16 Duloxetine HCl 60 mg PO DAILY 05/02/16 Omeprazole CAP* [Prilosec CAP* 20 MG] 40 mg PO BID 05/02/16 Albuterol 2.5MG/3ML (0.083%)* [Ventolin 2.5 MG/3 ML NEB.ZACHARY*] 2.5 mg INH Q4H PRN 05/03/16 Albuterol HFA INHALER* [Ventolin HFA Inhaler*] 2 puff INH Q4H PRN 05/03/16 Fluticasone HFA 220 mcg(NF) [Flovent Hfa 220 Mcg(NF)] 1 puff INH BID 05/03/16 Ipratropium 0.5MG/2.5ML NEB* [Atrovent 0.5 MG NEB.ZACHARY*] 0.5 mg INH QID 05/03/16 LoraTADine TAB(NF) [Claritin 10 MG TAB(NF)] 10 mg PO DAILY 05/03/16 Seroquel TAB* 50 mg PO QPM PRN 07/25/16 DOXYcycline CAP(*) [DOXYcycline 100MG CAP(*)] 100 mg PO BID #7 cap 07/29/16 busPIRone TAB* [Buspar TAB*] 7.5 mg PO BID #42 tab 07/29/16 predniSONE TAB* [Deltasone TAB*] 40 mg PO DAILY #8 tab 07/29/16 Levofloxacin TAB* [Levaquin TAB*] 750 mg PO DAILY #6 tab 08/22/16 predniSONE TAB* [Deltasone TAB*] 60 mg PO DAILY #4 tab 08/22/16 PSurgHx L upper lobectomy for adenoCA tonsillectomy hysterectomy SocHx: 1/2PPD cigarettes typically down to ~4cigarettes daily recently w/ ~ 25PYHX, denies alcohol, HX opioid & benzodiazepine abuse currently abstinent; full code status FamHx: Mother: ulcerative colitis; Father: passed of MD in his 50s; 1 child passed of suicide and another passed of complications of alcoholism ROS: as above, otherwise reviewed and all were negative Constitutional: NAD, normally developed, thin white female vitals: Vital Signs Temp 37.4 C 08/24/16 02:21 Pulse 83 08/24/16 02:21 Resp 18 08/24/16 02:21 BP 123/66 08/24/16 02:40 Pulse Ox 97 08/24/16 02:40 Intake & Output 08/23/16 08/23/16 08/24/16 11:59 23:59 11:59 Weight 45.359 kg HEENM: atraumatic; sclera/conjunctiva: non-icteric/clear; hearing: clinically intact; oropharynx: clear, mucosa dry Neck: soft tissue: non-tender; thyroid: no mass Pulmonary: mild barnes-expiratory wheeze, fair aeration, no accessory muscle use CV: RR/RR, normal S1S2, no carotid bruit, no jugular venous distention, 2+ B DP/ PT, no edema Abdominal: soft, non-distended, non-tender, no rebound/guarding/rigidity, normoactive bowel sounds, no hepatosplenomegaly or masses, no costovertebral angle tenderness Musculoskeletal: general: grossly intact; gait: stable Integumental: normal appearance and texture Psychiatric orientation: AA&O to PPS affect: calm mood: cooperative eye contact: good content: reliable responses: timely insight: poor Testing: Lab Results 08/24/16 08/24/16 08/24/16 Range/Units 01:26 01:26 01:26 WBC 10.8 (3.5-10.8) 10^3/ul RBC 3.30 L (4.0-5.4) 10^6/ul Hgb 10.9 L (12.0-16.0) g/dl Hct 32 L (35-47) % MCV 96 (80-97) fL MCH 33 H (27-31) pg MCHC 34 (31-36) g/dl RDW 16 H (10.5-15) % Plt Count 314 (150-450) 10^3/ul MPV 9 (7.4-10.4) um3 Neut % (Auto) 68.9 (38-83) % Lymph % (Auto) 18.1 L (25-47) % Kay % (Auto) 11.8 H (1-9) % Eos % (Auto) 1.0 (0-6) % Baso % (Auto) 0.2 (0-2) % Absolute Neuts (auto) 7.5 (1.5-7.7) 10^3/ul Absolute Lymphs (auto) 2.0 (1.0-4.8) 10^3/ul Absolute Monos (auto) 1.3 H (0-0.8) 10^3/ul Absolute Eos (auto) 0.1 (0-0.6) 10^3/ul Absolute Basos (auto) 0 (0-0.2) 10^3/ul Absolute Nucleated RBC 0 10^3/ul Nucleated RBC % 0 Sodium 117 L* (133-145) mmol/L Potassium TNP Chloride 84 L (101-111) mmol/L Carbon Dioxide 25 (22-32) mmol/L Anion Gap TNP BUN 12 (6-24) mg/dL Creatinine 0.71 (0.51-0.95) mg/dL Est GFR ( Amer) 106.6 (>60) Est GFR (Non-Af Amer) 82.9 (>60) BUN/Creatinine Ratio 16.9 (8-20) Glucose 95 (70-100) mg/dL Lactic Acid 0.8 (0.5-2.0) mmol/L Calcium 8.4 L (8.6-10.3) mg/dL Total Bilirubin 0.40 (0.2-1.0) mg/dL AST TNP ALT 14 (7-52) U/L Alkaline Phosphatase 58 (34-104) U/L Total Protein 5.8 L (6.4-8.9) g/dL Albumin 3.1 L (3.2-5.2) g/dL Globulin 2.7 (2-4) g/dL Albumin/Globulin Ratio 1.1 (1-3) CXR, personally reviewed: surgical clips L upper chest, small L pleural effusion , no acute process Impression: 65F HX adenoCA lung presents w/ SOB and incidental finding of hypoNatremia 117 DIAGNOSIS & PLAN Primary hypoNatremia w/ HX adenoCA lung : volume depletion favored over SIADH : NS IVFs overnight and trend BMPs : telemetry : seizure precautions : supportive care COPD w/ SOB : albuterol nebs : mometasone/formoterol : tiotropium : IV methylprednisolone : incentive spirometry : low flow oxygen supplementation : smoking cessation advised, low-mod motivation : supportive care Secondary PFO : no acute issues HTN : review meds once reconciled HLD : review meds once reconciled : heart healthy diet no caffeine hypothyroidism : review meds once reconciled chronic LBP : review meds once reconciled : HX opioid & benzodiazepine abuse, avoid hiatal hernia/GERD : omeprazole Admission Rational: inpatient for management of severe chronic hypoNatremia inappropriate for the outpatient setting DVTp: heparin SQ & SCDs Code Status: full HCP: daughter, Yesy Glover
--- NOTE | 2016-08-24 02:57 | ED ---
Milton Winkler Billy, scribed for Oscar Ruano MD on 08/24/16 at 0122 . Respiratory - HPI Summary HPI Summary: Patient is a 65 y/o female BIBA to [facility] for evaluation of SOB today. Patient was seen in the ED yesterday for the same and was prescribed steroids and antibiotics, but she has yet to case picker her medication. She states she feels fatigued and anxious. EMS reports that the patient was on 95% room air by the time they arrived, and she improved with Duoneb given en route. - History of Current Complaint Chief Complaint: EDRespiratoryDistress Stated Complaint: SHORT OF BREATH Time Seen by Provider: 08/24/16 00:47 Hx Obtained From: Patient, EMS Onset/Duration: Gradual Onset Timing: Constant Initial Severity: Moderate Current Severity: Moderate Aggravating Factor(s): Nothing Alleviating Factor(s): Neb. Bronchodilators (Frequency Of Use) Associated Signs and Symptoms: SOB - Allergy/Home Medications Allergies/Adverse Reactions: Allergies Allergy/AdvReac Type Severity Reaction Status Date / Time Aspirin Allergy Anaphylatic Verified 08/24/16 00:52 Shock Latex AdvReac Mild Rash Verified 08/24/16 00:52 PMH/Surg Hx/FS Hx/Imm Hx Endocrine/Hematology History: Reports: Hx Thyroid Disease - hypothyroid, Other Endocrine/Hematological Disorders - Benign goiter Denies: Hx Bone Marrow Disease, Hx Diabetes, Hx Systemic Lupus Erythematosus Cardiovascular History: Reports: Hx Hypercholesterolemia - was high before cancer,now off meds., Hx Hypertension, Other Cardiovascular Problems/Disorders - patent foramen ovale; Murmur Denies: Hx Congestive Heart Failure, Hx Pacemaker/ICD Respiratory History: Reports: Hx Chronic Obstructive Pulmonary Disease (COPD), Hx Lung Cancer - Left upper lobectomy, Hx Pneumonia, Other Respiratory Problems/ Disorders - lung cancer, LOBECTOMY 09/11/11 GI History: Reports: Hx Gastroesophageal Reflux Disease, Hx Hiatal Hernia, Other GI Disorders - hiatal hernia, colitis. 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, Hx Osteoporosis - Possible, Hx Scoliosis, Other Musculoskeletal History - scoliosis Denies: Hx Rheumatoid Arthritis Sensory History: Reports: Hx Cataracts - PATIENT STATES BEGINING OF CATARACTS LEFT EYE, Hx Contacts or Glasses, Hx Hearing Problem - right Denies: Hx Hearing Aid Opthamlomology History: Reports: Hx Cataracts - PATIENT STATES BEGINING OF CATARACTS LEFT EYE, Hx Contacts or Glasses Neurological History: Reports: Hx Headaches - frequent h/a's, Hx Migraine - Rare post menopause Psychiatric History: Reports: Hx Anxiety, Hx Depression, Hx Community Mental Health Tx, Hx Substance Abuse - opiods Denies: Hx Panic Disorder, Hx Inpatient Treatment - Cancer History Cancer Type, Location and Year: LUNG CA, DIAGNOSED July 2012 Hx Chemotherapy: Yes Hx Radiation Therapy: No Hx Palliative Cancer Treatment: No - Surgical History Surgery Procedure, Year, and Place: LEFT UPPER LUNG REMOVED 09/2012, HYSTERECTOMY , tonsillectomy Hx Anesthesia Reactions: No - Immunization History Date of Tetanus Vaccine: UTD Date of Influenza Vaccine: 05/01/16 Infectious Disease History: No Infectious Disease History: Denies: Traveled Outside the [place] in Last 30 Days - Family History Known Family History: Positive: Cardiac Disease - Sudden cardiac arrest (father) , Other - son -- glioblastoma. UC mother - Social History Alcohol Use: None Hx Substance Use: No Substance Use Type: Reports: None Substance Use Comment - Amount & Last Used: opiates Hx Tobacco Use: Yes Smoking Status (MU): Current Every Day Smoker Type: Cigarettes Amount Used/How Often: 1/2 pack a day Length of Time of Smoking/Using Tobacco: 47 years Have You Smoked in the Last Year: Yes Review of Systems Positive: Fatigue Positive: Shortness Of Breath Positive: Anxious All Other Systems Reviewed And Are Negative: Yes Physical Exam Triage Information Reviewed: Yes Vital Signs On Initial Exam: Initial Vitals Temp Pulse Resp BP Pulse Ox 99.3 F 71 18 148/88 98 08/24/16 00:52 08/24/16 00:52 08/24/16 00:52 08/24/16 00:52 08/24/16 00:52 Vital Signs Reviewed: Yes Appearance: Positive: Thin Skin: Positive: Warm Head/Face: Positive: Normal Head/Face Inspection Eyes: Positive: ADORE ENT: Positive: Hearing grossly normal Neck: Positive: Supple Respiratory/Lung Sounds: Positive: Breath Sounds Present - mild, Wheezes - few scattered bilat with pprolonged exp Cardiovascular: Positive: RRR Abdomen Description: Positive: Nontender, Soft Musculoskeletal: Positive: Strength/ROM Intact Neurological: Positive: Sensory/Motor Intact, Alert, Oriented to Person Place, Time Diagnostics - Vital Signs Vital Signs Temp Pulse Resp BP Pulse Ox 08/24/16 00:52 99.3 F 71 18 148/88 98 - Laboratory Lab Results: Lab Results 08/24/16 08/24/16 08/24/16 Range/Units 01:26 01:26 01:26 WBC 10.8 (3.5-10.8) 10^3/ul RBC 3.30 L (4.0-5.4) 10^6/ul Hgb 10.9 L (12.0-16.0) g/dl Hct 32 L (35-47) % MCV 96 (80-97) fL MCH 33 H (27-31) pg MCHC 34 (31-36) g/dl RDW 16 H (10.5-15) % Plt Count 314 (150-450) 10^3/ul MPV 9 (7.4-10.4) um3 Neut % (Auto) 68.9 (38-83) % Lymph % (Auto) 18.1 L (25-47) % [place] % (Auto) 11.8 H (1-9) % Eos % (Auto) 1.0 (0-6) % Baso % (Auto) 0.2 (0-2) % Absolute Neuts (auto) 7.5 (1.5-7.7) 10^3/ul Absolute Lymphs (auto) 2.0 (1.0-4.8) 10^3/ul Absolute Monos (auto) 1.3 H (0-0.8) 10^3/ul Absolute Eos (auto) 0.1 (0-0.6) 10^3/ul Absolute Basos (auto) 0 (0-0.2) 10^3/ul Absolute Nucleated RBC 0 10^3/ul Nucleated RBC % 0 Sodium 117 L* (133-145) mmol/L Potassium TNP Chloride 84 L (101-111) mmol/L Carbon Dioxide 25 (22-32) mmol/L Anion Gap TNP BUN 12 (6-24) mg/dL Creatinine 0.71 (0.51-0.95) mg/dL Est GFR ( Amer) 106.6 (>60) Est GFR (Non-Af Amer) 82.9 (>60) BUN/Creatinine Ratio 16.9 (8-20) Glucose 95 (70-100) mg/dL Lactic Acid 0.8 (0.5-2.0) mmol/L Calcium 8.4 L (8.6-10.3) mg/dL Total Bilirubin 0.40 (0.2-1.0) mg/dL AST TNP ALT 14 (7-52) U/L Alkaline Phosphatase 58 (34-104) U/L Total Protein 5.8 L (6.4-8.9) g/dL Albumin 3.1 L (3.2-5.2) g/dL Globulin 2.7 (2-4) g/dL Albumin/Globulin Ratio 1.1 (1-3) Result Diagrams: 08/24/16 05:28 08/24/16 05:28 Lab Statement: Any lab studies that have been ordered have been reviewed, and results considered in the medical decision making process. Re-Evaluation - Re-Evaluation First Eval Re-Evaluation Time: 02:07 Comment: Labs reviewed. breathing improved but profound hyponatremia Disposition - Diagnoses Provider Diagnoses: Hyponatremia, COPD (chronic obstructive pulmonary disease) - Physician Notifications Discussed Care Of Patient With: Dr. Melton (hospitalist) @ 0205: accepts admission. Instructed by Provider To: Admit As Inpatient Discharge - Discharge Plan Condition: Fair Disposition: ADMITTED TO [facility] documentation as recorded by the Milton crawford Billy accurately reflects the service I personally performed and the decisions made by me, Oscar Ruano MD.
[2016-08-24] MEDS ORDERED: Ondansetron INJ* 2 MG/ML VIAL IV PRN (03:26)
[2016-08-24] MEDS ORDERED: Albuterol 2.5 MG/3 ML NEB.SOL* (0.083%) INH PRN (03:26)
[2016-08-24] MEDS ORDERED: Melatonin (NF) 3 MG TAB PO PRN (03:26)
[2016-08-24] MEDS ORDERED: Acetaminophen TAB* 325 MG PO PRN (03:26)
[2016-08-24] MEDS ORDERED: methylPREDNISolone SOD SUCC* 125 MG 2 ML VIAL IV ONE (03:27)
[2016-08-24] MEDS: Levofloxacin TAB* 500 MG PO SCH (03:57)
[2016-08-24] MEDS: NS 0.9% 1000 ML* 1,000 ML IV SCH ×2 (04:04→09:02)
[2016-08-24 05:47] LABS: Hematocrit 32 % (35-47); Hemoglobin 10.7 g/dl (12.0-16.0); Mean Corpuscular HGB Conc 34 g/dl (31-36); Mean Corpuscular Hemoglobin 33 pg (27-31); Mean Corpuscular Volume 98 fL (80-97); Mean Platelet Volume 8 um3 (7.4-10.4); Red Blood Count 3.22 10^6/ul (4.0-5.4); Red Cell Distribution Width 16 % (10.5-15)
[2016-08-24 06:09] LABS: EGFR Non-African American 88.6 (>60)
[2016-08-24 07:04] LABS: Calcium 8.1 mg/dL (8.6-10.3); Potassium 3.8 mmol/L (3.5-5.0)
[2016-08-24] MEDS: Omeprazole CAP* 20 MG PO SCH (07:07)
[2016-08-24 07:26] LABS: BUN/Creatinine Ratio 14.9 (8-20)
--- NOTE | 2016-08-24 07:45 | RAD ---
INDICATION: Shortness of breath. COMPARISON: Comparison is made with a prior chest x-ray study from August 22, 2016. Correlation is also made with an exam from July 28, 2016. TECHNIQUE: Dual-energy PA and lateral views of the chest were obtained. FINDINGS: The heart is within normal limits in size. Multiple surgical clips are noted in the left hilar region. There is volume loss in the left hemithorax most consistent with partial left pneumonectomy. The lungs are clear. There is flattening of the diaphragms consistent with chronic obstructive lung disease. No pleural effusion is seen. IMPRESSION: POSTSURGICAL CHANGES AND FINDINGS CONSISTENT WITH COPD, NO EVIDENCE FOR ACUTE FINDING.
[2016-08-24] MEDS: traMADol TAB* 50 MG PO PRN ×3 (08:53→23:11)
[2016-08-24] MEDS: Docusate CAP* 100 MG PO SCH ×2 (08:54→21:59)
[2016-08-24] MEDS: Albuterol 2.5 MG/3 ML NEB.SOL* (0.083%) INH SCH ×3 (09:09→21:06)
[2016-08-24] MEDS: Mometasone/Formoter 200/5 MDI INH SCH ×2 (09:15→21:05)
[2016-08-24] MEDS: Tiotropium CAP.INH* CAP.INH/18 MCG INH SCH (09:17)
--- NOTE | 2016-08-24 09:57 | PN ---
Subjective Date of Service: 08/24/16 Interval History: This is a 65 yo male with COPD who presents with c/o SOB, n/v/d. Patient was hospitalized ~3 weeks ago with COPD exacerbation. Patient states that she was feeling somewhat better up until 2 days ago when she began with n/v/d and increased dyspnea. She was hyponatremic at admission, which is improving with NS. She was started on corticosteroids and abx for COPD exacerbation. Patient reports generalized malaise and continued dyspnea this am. She has a productive cough. Afebrile overnight. No further n/v/d. Tolerated breakfast. No abd pain, no CP. Objective Active Medications: Acetaminophen (Tylenol Tab*) 650 mg PO Q6H PRN PRN Reason: FEVER/PAIN Albuterol (Ventolin 2.5 Mg/3 Ml Neb.Tracey*) 2.5 mg INH Q2H PRN PRN Reason: SOB/WHEEZING Albuterol (Ventolin 2.5 Mg/3 Ml Neb.Tracey*) 2.5 mg INH [id number] AWAKE [facility] Last Admin: 08/24/16 09:09 Dose: 2.5 mg Device (Tiotropium Inhaler Device*) 1 each INH ONCE ONE Stop: 08/24/16 10:01 Last Admin: 08/24/16 09:14 Dose: 1 each Docusate Sodium (Colace Cap*) 200 mg PO BID [facility] Last Admin: 08/24/16 08:54 Dose: Not Given Heparin Sodium (Porcine) (Heparin Vial(*)) 5,000 units SUBCUT Q8HR [facility] Sodium Chloride (Ns 0.9% 1000 Ml*) 1,000 mls @ 200 mls/hr IV PER RATE [facility] Stop: 08/25/16 08:29 Last Admin: 08/24/16 09:02 Dose: 200 mls/hr Levofloxacin (Levaquin Tab*) 500 mg PO Q24HR [facility] Last Admin: 08/24/16 03:57 Dose: 500 mg Melatonin (Melatonin (Nf)) 3 mg PO BEDTIME PRN; Protocol PRN Reason: Sleep Mometasone Furoate/Formoterol Fumar (Dulera 200/5 Mdi*) 2 puff INH BID [facility] Last Admin: 08/24/16 09:15 Dose: 2 puff Omeprazole (Prilosec Cap*) 20 mg PO DAILY@0600 [facility] Last Admin: 08/24/16 07:07 Dose: 20 mg Ondansetron HCl (Zofran Inj*) 4 mg IV Q6H PRN PRN Reason: NAUSEA Prednisone (Deltasone Tab*) 60 mg PO DAILY [facility] Tiotropium [place] (Spiriva Cap.Inh*) 1 cap INH DAILY [facility] Last Admin: 08/24/16 09:17 Dose: 1 cap Tramadol HCl (Ultram*) 50 mg PO Q8H PRN PRN Reason: PAIN Last Admin: 08/24/16 08:53 Dose: 50 mg Vital Signs: Temp Pulse Resp BP Pulse Ox 98.4 F 81 16 131/72 99 08/24/16 07:40 08/24/16 09:12 08/24/16 09:12 08/24/16 07:40 08/24/16 09:13 Oxygen Devices in Use Now: Nasal Cannula Appearance: Moderately ill appearing and dyspneic after returning from the bathroom. Ears/Nose/Mouth/Throat: Mucous Membranes Moist Neck: NL Appearance and Movements; NL JVP Respiratory: Symmetrical Chest Expansion and Respiratory Effort, - - diffuse rhonchi and few wheezes Cardiovascular: - - faint murmur Abdominal: NL Sounds; No Tenderness; No Distention Extremities: No Edema Skin: No Rash or Ulcers Neurological: Alert and Oriented x 3 Result Diagrams: 08/24/16 05:28 08/24/16 05:28 Additional Lab and Data: Vital Signs: Temp Pulse Resp BP Pulse Ox 98.4 F 81 16 131/72 99 08/24/16 07:40 08/24/16 09:12 08/24/16 09:12 08/24/16 07:40 08/24/16 09:13 Microbiology and Other Data: Microbiology 08/24/16 07:40 Influenza Types A,B Antigen ([place]) - Final Nasal Specimen received for Influenza A/B Molecular testing Influenza - neg Diagnostic Imaging: CXR - NAD Assess/Plan/Problems-Billing Assessment: This is a 65 yo female with h/o adenocarcinoma of the lung, COPD, HTN, HLD, hypothyroidism, and h/o benzo/opiate abuse who presented with n/v/d and c/o dyspnea and cough. Admitted for hyponatremia, COPD exacerbation and likely viral gastroenteritis. - Patient Problems (1) COPD exacerbation Comment: Sig rhonchi/wheeze on exam with c/o dyspnea Cont corticosteroids and Levaquin Spiriva started Cont Dulera It appears patient only has Flovent at home, she requires LAMA, LABA/ICS at discharge (2) Hyponatremia Comment: Improving with NS Cont to monitor closely Likely due to hypovolemia (3) Gastroenteritis Comment: No further vomiting or diarrhea since admission Cont supportive care (4) GERD (gastroesophageal reflux disease) Comment: Continue omeprazole. (5) Hypertension Comment: Normotensive Resume home antihypertensives, atenolol/amlodipine (6) Hypothyroidism Comment: Continue levthyroxine at current home dose (7) Tobacco abuse Comment: Patient has desired smoking cessation but continues to smoke Continue to encourage cessation (8) Depression Comment: Cont Cymbalta/Seroquel (9) Anxiety Comment: Cont Buspar initiated at last hospitalization avoid benzos as she has a h/o abuse and OD (10) History of lung cancer Status and Disposition: Patient requires continued hospital stay. Anticipate dc in 2-3 days.
[2016-08-24] MEDS ORDERED: Spiriva Inhaler DEVICE* 1 EACH DEVICE INH ONE (10:00)
[2016-08-24] MEDS ORDERED: QUEtiapine TAB* 25 MG PO PRN (10:07)
[2016-08-24 10:19] LABS: BUN/Creatinine Ratio 12.7 (8-20); Calcium 8.5 mg/dL (8.6-10.3); EGFR African American 106.6 (>60); EGFR Non-African American 82.9 (>60); Potassium 3.4 mmol/L (3.5-5.0)
[2016-08-24 16:14] LABS: Calcium 8.3 mg/dL (8.6-10.3); EGFR African American 81.1 (>60); Potassium 3.7 mmol/L (3.5-5.0)
[2016-08-24] MEDS: busPIRone TAB* 5 MG PO SCH (21:58)
[2016-08-25] MEDS: Heparin VIAL(*) 5000 UNITS/ML VIAL (FIVE THOUSAND) SUBCUT SCH ×2 (05:53→06:00)
[2016-08-25] MEDS: Omeprazole CAP* 20 MG PO SCH (05:53)
[2016-08-25 08:17] VITALS: BP 160/89
[2016-08-25] MEDS: traMADol TAB* 50 MG PO PRN (08:36)
[2016-08-25] MEDS: Mometasone/Formoter 200/5 MDI INH SCH (08:41)
[2016-08-25] MEDS: Tiotropium CAP.INH* CAP.INH/18 MCG INH SCH (08:41)
[2016-08-25] MEDS ORDERED: methylPREDNISolone SOD SUCC* 40 MG/ML VIAL IV SCH (09:00)
[2016-08-25] MEDS ORDERED: Atenolol TAB* 25 MG PO SCH (09:00)
[2016-08-25] MEDS ORDERED: Cetirizine* 10 MG TAB PO SCH (09:00)
[2016-08-25] MEDS ORDERED: amLODIPine TAB* 5 MG PO SCH (09:00)
[2016-08-25] MEDS ORDERED: DULoxetine DR CAP* 60 MG CAP.DR PO SCH (09:00)
[2016-08-25] MEDS ORDERED: Levothyroxine TAB* 100 MCG TAB PO SCH (09:00)
[2016-08-25] MEDS ORDERED: predniSONE TAB* 20 MG PO SCH (09:00)
[2016-08-25] MEDS: Levofloxacin TAB* 500 MG PO SCH (09:23)
[2016-08-25] MEDS: busPIRone TAB* 5 MG PO SCH (09:23)
[2016-08-25] MEDS: Docusate CAP* 100 MG PO SCH (09:47)
--- NOTE | 2016-08-26 02:17 | DS ---
DISCHARGE SUMMARY: DATE OF ADMISSION: 08/24/16 DATE OF DISCHARGE: 08/25/16 PRIMARY CARE PROVIDER: Guerrero Gtz NP DISCHARGING PROVIDER: ALEJANDRO Martin SUPERVISING PHYSICIAN: KIRSTIE Zepeda (DICTATED BY ALEJANDRO MARTIN) PRIMARY DISCHARGE DIAGNOSES: 1. Acute viral gastroenteritis. 2. Chronic obstructive pulmonary disease exacerbation. 3. Hyponatremia - acute on chronic. SECONDARY DISCHARGE DIAGNOSES: 1. Gastroesophageal reflux disease. 2. Hypertension. 3. Hypothyroidism. 4. Tobacco abuse. 5. Depression. 6. Anxiety. 7. History of lung cancer. 8. History and benzo and opiate abuse. 9. Chronic back pain. DISCHARGE MEDICATIONS: 1. Cymbalta 60 mg p.o. daily. 2. Seroquel 50 mg p.o. nightly. 3. Nebulized albuterol inhaled q.4 hours as needed for shortness of breath. 4. Ventolin inhaler 2 puffs inhaled q.4 hours as needed for shortness of breath. 5. Amlodipine 5 mg p.o. daily. 6. Atenolol 25 mg p.o. daily. 7. Flovent 220 mcg 1 puff inhaled twice daily. 8. Nebulized ipratropium inhaled 4 times daily as needed for shortness of breath. 9. Levaquin 500 mg p.o. daily x7 days. 10. Levothyroxine 200 mcg p.o. daily. 11. Loratadine 10 mg daily. 12. Omeprazole 40 mg p.o. twice daily. 13. Spiriva 1 capsule inhaled daily. 14. BuSpar 7.5 mg p.o. twice daily. 15. Prednisone on a tapering dose 40 mg x3 days followed by 20 mg x3 days followed by 10 mg x3 days. 16. Tramadol 50 mg p.o. q.8 hours as needed for pain. MEDICATION CHANGES: 1. Start Spiriva. 2. Prednisone tapering dose as described above. 3. Levaquin x7 days. HOSPITAL IMAGING: Chest x-ray, 08/24/16, demonstrates acute findings consistent with COPD. No acute changes. HOSPITAL COURSE: This is a 65-year-old female with a history of COPD as well as prior history of adenocarcinoma of the lung as well as hypertension, hyperlipidemia, hypothyroidism, and a history of opiate and benzo abuse, who presented to the emergency department with complaints of shortness of breath. The patient was discharged from the hospital on 07/29/16, approximately 4 weeks ago, at which point, she was treated for a COPD exacerbation and discharged with antibiotics and a steroid taper. The patient states that she took these medications as directed and she was feeling better for a couple of weeks. She was not requiring her oxygen on a routine basis at home up until about 2 to 3 days prior to her admission when she developed nausea, vomiting, and diarrhea and with that came increased shortness of breath and cough. When the patient reached the emergency department, initial CBC was largely unremarkable, no leukocytosis, hemoglobin was 10.9 which is near her baseline, and platelet count was normal. Chemistries revealed sodium of 117 mmol/L and remainder of chemistries were unremarkable. Influenza testing was negative. The patient was afebrile. She was subsequently admitted for COPD exacerbation with an acute viral gastroenteritis and hyponatremia secondary to hypovolemia. The patient was hydrated with normal saline and her sodium improved to 130 mmol/ L prior to discharge. She was treated with corticosteroids, Levaquin, and Spiriva was initiated for her COPD. Her respiratory complaints improved significantly and she did not require supplemental O2 at the time of discharge and was saturating in the mid 90s on room air. The patient's GI complaints resolved. She was able to tolerate a regular diet without nausea, vomiting, or diarrhea. The patient had some concerns about her pain management in regards to her chronic back pain as well as her depression. She has had significant loss losing both of her sons and her over the last couple of years. She has had incredibly difficult time coping with that. She is currently on Cymbalta and Seroquel, which she believes is helping somewhat, but states that she does very few activities throughout the day and would like some additional help with her depressive symptoms. Recommended that she follow up with her primary care provider, who may be able to refer to Psychiatry for further evaluation and treatment. The patient also reports that she has chronic back pain, which she struggles with. She states that tramadol is generally effective, but she does not like the way that it makes her feel. She feels that opiates are more effective. Again, recommended that she discuss this further with her primary care provider. Per her history, she has trouble with opiate and benzo abuse and would highly discourage prescribing these for her. DISPOSITION: The patient is being discharged to home with medication changes as recommended above. Recommend initiating Spiriva for COPD management as well as antibiotics and prednisone as described above. The patient requires close followup with her primary care provider regarding this hospital admission and to discuss management of her back pain and depression in further detail. ALEJANDRO MARTIN CC: Guerrero Gtz NP* [id number]/CPS #: [id number] NICOLE
== END 2016-08-25 11:05 | disposition home or self-care (01) ==
LOC: ED 00:45 → MEDTELE 02:11 → INTOOBSV 02:11 → UNDODISIN 15:00 → MEDTELE 19:52 → UNDODISIN 20:13
PROVIDERS: ADMIT Hospitalist; ATTEND Hospitalist
DX: A08.4 Viral intestinal infection, unspecified (principal); J44.1 Chronic obstructive pulmonary disease with (acute) exacerbation; E87.1 Hypo-osmolality and hyponatremia; K21.9 Gastro-esophageal reflux disease without esophagitis; I10 Essential (primary) hypertension; E03.9 Hypothyroidism, unspecified; F32.9 Major depressive disorder, single episode, unspecified; F41.9 Anxiety disorder, unspecified; M54.9 Dorsalgia, unspecified; G89.29 Other chronic pain; Z85.118 Personal history of other malignant neoplasm of bronchus and lung; Z79.899 Other long term (current) drug therapy; Z88.6 Allergy status to analgesic agent; F17.210 Nicotine dependence, cigarettes, uncomplicated; Q21.1 Atrial septal defect; R06.02 Shortness of breath
CPT/HCPCS: 36415; 71020; 80048; 80053; 83605; 85025; 85027; 85610; 85730; 87502; 94640; 94760; 96361; 96372; 96374; 99285; 99406; A9270-GY; G0378; J1644; J2930; J7512

== ENCOUNTER 2016-08-30 19:56 | Inpatient (IN) | payer BC ==
[2016-08-30] MEDS ORDERED: methylPREDNISolone SOD SUCC* 125 MG 2 ML VIAL IV ONE (20:05)
--- NOTE | 2016-08-30 20:36 | RAD ---
INDICATION: Shortness of breath. COMPARISON: Comparison is made with a prior chest x-ray study from August 24, 2016 and a prior study from July 28, 2016. TECHNIQUE: AP and lateral views of the chest were obtained. FINDINGS: The heart is within normal limits in size. The patient is status post partial left pneumonectomy. There are multiple surgical clips in the left hilum. There is a new small infiltrate at the left lung base. The right lung appears clear. There are flattening of the diaphragms consistent with chronic obstructive pulmonary disease. IMPRESSION: 1. POSTSURGICAL CHANGES, NEW SMALL LEFT BASILAR INFILTRATE. 2. COPD.
[2016-08-30 21:01] LABS: Hematocrit 37 % (35-47); Hemoglobin 12.1 g/dl (12.0-16.0); Mean Corpuscular HGB Conc 33 g/dl (31-36); Mean Corpuscular Hemoglobin 32 pg (27-31); Mean Corpuscular Volume 98 fL (80-97); Mean Platelet Volume 8 um3 (7.4-10.4); Red Blood Count 3.74 10^6/ul (4.0-5.4); Red Cell Distribution Width 16 % (10.5-15); White Blood Count 12.6 10^3/ul (3.5-10.8)
[2016-08-30 21:15] LABS: Albumin 3.4 g/dL (3.2-5.2); Calcium 8.6 mg/dL (8.6-10.3); EGFR Non-African American 98.7 (>60); Globulin 2.7 g/dL (2-4); Potassium 3.7 mmol/L (3.5-5.0); Total Bilirubin 0.4 mg/dL (0.2-1.0); Total Protein 6.1 g/dL (6.4-8.9)
[2016-08-30 21:17] LABS: Troponin I 0.01 ng/mL (<0.04)
[2016-08-30] MEDS ORDERED: Piperac/Tazob 3.375 gm in NS* 3.375 GM/100 ML BAG IVPB ONE (21:33)
--- NOTE | 2016-08-30 21:40 | ED ---
Charly Winkler Erika, scribed for Oscar Ruano MD on 08/30/16 at 2026 . Shortness of Breath - HPI Summary HPI Summary: Patient is a 65-year-old female presenting to the ED with a CC of SOB. Patient reports a Hx COPD, and states she does not usually use home O2. However, starting at 03:00 today, patient has been having worsening SOB. She used 4L O2 today and used a nebulizer treatment, which slightly helped, but did not fully alleviate symptoms. Patient was also given 2 nebulizers by EMS. Patient has a Hx chronic hyponatremia and has been hospitalized for this condition in the past. - History of Current Complaint Time Seen by Provider: 08/30/16 20:01 Hx Obtained From: Patient Onset/Duration: Gradual Onset, Lasting Hours, Still Present Timing: Constant Current Severity: Moderate Dyspnea At: Rest Alleviating Factors: Bronchodilators, EMS Tx, Oxygen Related History: Similar Episode - Allergy/Home Medications Allergies/Adverse Reactions: Allergies Allergy/AdvReac Type Severity Reaction Status Date / Time Aspirin Allergy Anaphylatic Verified 08/24/16 00:52 Shock Latex AdvReac Mild Rash Verified 08/24/16 00:52 Home Medications: Home Medications Tiotropium CAP.INH* [Spiriva CAP.INH*] 1 cap.inh INH DAILY 08/30/16 [History Confirmed 08/30/16] PMH/Surg Hx/FS Hx/Imm Hx Endocrine/Hematology History: Reports: Hx Thyroid Disease - hypothyroid, Other Endocrine/Hematological Disorders - Benign goiter Denies: Hx Bone Marrow Disease, Hx Diabetes, Hx Systemic Lupus Erythematosus Cardiovascular History: Reports: Hx Hypercholesterolemia - was high before cancer,now off meds., Hx Hypertension, Other Cardiovascular Problems/Disorders - patent foramen ovale; Murmur Denies: Hx Congestive Heart Failure, Hx Pacemaker/ICD Respiratory History: Reports: Hx Chronic Obstructive Pulmonary Disease (COPD), Hx Lung Cancer - Left upper lobectomy, Hx Pneumonia, Other Respiratory Problems/ Disorders - lung cancer, LOBECTOMY 09/11/11 GI History: Reports: Hx Gastroesophageal Reflux Disease, Hx Hiatal Hernia, Other GI Disorders - hiatal hernia, colitis. 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, Hx Osteoporosis - Possible, Hx Scoliosis, Other Musculoskeletal History - scoliosis Denies: Hx Rheumatoid Arthritis Sensory History: Reports: Hx Cataracts - PATIENT STATES BEGINING OF CATARACTS LEFT EYE, Hx Contacts or Glasses, Hx Hearing Problem - right Denies: Hx Hearing Aid Opthamlomology History: Reports: Hx Cataracts - PATIENT STATES BEGINING OF CATARACTS LEFT EYE, Hx Contacts or Glasses Neurological History: Reports: Hx Headaches - frequent h/a's, Hx Migraine - Rare post menopause Psychiatric History: Reports: Hx Anxiety, Hx Depression, Hx Community Mental Health Tx, Hx Substance Abuse - opiods Denies: Hx Panic Disorder, Hx Inpatient Treatment - Cancer History Cancer Type, Location and Year: LUNG CA, DIAGNOSED July 2012 Hx Chemotherapy: Yes Hx Radiation Therapy: No Hx Palliative Cancer Treatment: No - Surgical History Surgery Procedure, Year, and Place: LEFT UPPER LUNG REMOVED 09/2012, HYSTERECTOMY , tonsillectomy Hx Anesthesia Reactions: No - Immunization History Date of Tetanus Vaccine: UTD Date of Influenza Vaccine: 05/01/16 Infectious Disease History: Denies: Hx of Known/Suspected MRSA - Family History Known Family History: Positive: Cardiac Disease - Sudden cardiac arrest (father) , Other - son -- glioblastoma. UC mother - Social History Alcohol Use: None Hx Substance Use: No Substance Use Type: Reports: None Substance Use Comment - Amount & Last Used: opiates Hx Tobacco Use: Yes Smoking Status (MU): Current Every Day Smoker Type: Cigarettes Amount Used/How Often: 1/2 pack a day Length of Time of Smoking/Using Tobacco: 47 years Have You Smoked in the Last Year: Yes Review of Systems Negative: Fever Positive: Shortness Of Breath All Other Systems Reviewed And Are Negative: Yes Physical Exam Triage Information Reviewed: Yes Vital Signs On Initial Exam: Temp Pulse Resp BP Pulse Ox 98.4 F 78 20 124/74 98 08/30/16 20:06 08/30/16 20:06 08/30/16 20:06 08/30/16 20:06 08/30/16 20:06 Vital Signs Reviewed: Yes Appearance: Positive: Ill-Appearing, Thin, Cachectic Skin: Positive: Warm Head/Face: Positive: Normal Head/Face Inspection Eyes: Positive: ADORE ENT: Positive: Hearing grossly normal Neck: Positive: Supple Respiratory/Lung Sounds: Positive: Decreased Breath Sounds, Wheezes - bilat exp Cardiovascular: Positive: RRR Abdomen Description: Positive: Nontender, Soft Bowel Sounds: Positive: Present Musculoskeletal: Positive: Strength/ROM Intact Neurological: Positive: Sensory/Motor Intact, Alert, Oriented to Person Place, Time Psychiatric: Positive: Anxious Diagnostics - Vital Signs Vital Signs Temp Pulse Resp BP Pulse Ox 08/30/16 20:25 22 08/30/16 20:06 98.4 F 78 20 124/74 98 - Laboratory Lab Results: Lab Results 08/30/16 08/30/16 08/30/16 Range/Units 20:50 20:50 20:50 WBC 12.6 H (3.5-10.8) 10^3/ul RBC 3.74 L (4.0-5.4) 10^6/ul Hgb 12.1 (12.0-16.0) g/dl Hct 37 (35-47) % MCV 98 H (80-97) fL MCH 32 H (27-31) pg MCHC 33 (31-36) g/dl RDW 16 H (10.5-15) % Plt Count 357 (150-450) 10^3/ul MPV 8 (7.4-10.4) um3 Neut % (Auto) 85.3 H (38-83) % Lymph % (Auto) 7.2 L (25-47) % [place] % (Auto) 7.2 (1-9) % Eos % (Auto) 0.1 (0-6) % Baso % (Auto) 0.2 (0-2) % Absolute Neuts (auto) 10.8 H (1.5-7.7) 10^3/ul Absolute Lymphs (auto) 0.9 L (1.0-4.8) 10^3/ul Absolute Monos (auto) 0.9 H (0-0.8) 10^3/ul Absolute Eos (auto) 0 (0-0.6) 10^3/ul Absolute Basos (auto) 0 (0-0.2) 10^3/ul Absolute Nucleated RBC 0.01 10^3/ul Nucleated RBC % 0.1 Sodium 129 L (133-145) mmol/L Potassium 3.7 (3.5-5.0) mmol/L Chloride 94 L (101-111) mmol/L Carbon Dioxide 25 (22-32) mmol/L Anion Gap 10 (2-11) mmol/L BUN 11 (6-24) mg/dL Creatinine 0.61 (0.51-0.95) mg/dL Est GFR ( Amer) 127.0 (>60) Est GFR (Non-Af Amer) 98.7 (>60) BUN/Creatinine Ratio 18.0 (8-20) Glucose 111 H (70-100) mg/dL Lactic Acid 1.0 (0.5-2.0) mmol/L Calcium 8.6 (8.6-10.3) mg/dL Total Bilirubin 0.40 (0.2-1.0) mg/dL AST 15 (13-39) U/L ALT 11 (7-52) U/L Alkaline Phosphatase 56 (34-104) U/L Troponin I 0.01 (<0.04) ng/mL Total Protein 6.1 L (6.4-8.9) g/dL Albumin 3.4 (3.2-5.2) g/dL Globulin 2.7 (2-4) g/dL Albumin/Globulin Ratio 1.3 (1-3) Result Diagrams: 08/30/16 20:50 08/30/16 20:50 Lab Statement: Any lab studies that have been ordered have been reviewed, and results considered in the medical decision making process. - Radiology CXR Radiology Interpretation Completed By: Radiologist - IMPRESSION: 1. POSTSURGICAL CHANGES, NEW SMALL LEFT BASILAR INFILTRATE. 2. COPD. - EKG 20:23 Cardiac Rate: NL - at 72 bpm EKG Rhythm: Sinus Rhythm EKG Interpretation: LVH Re-Evaluation - Re-Evaluation First Eval Re-Evaluation Time: 21:40 Change: Improved Comment: Discussed need for admission Course/Dx - Course Assessment/Plan: A 65 y/o F with a Hx COPD and hyponatremia presents to the ED with a CC of SOB. EKG shows LVH. CXR shows a new small infiltrate and COPD. Patient has been admitted to the hospital for the same condition in the past. Dr. Park accepts patient for further work up and management. - Diagnoses Provider Diagnoses: Pneumonia, COPD (chronic obstructive pulmonary disease) - Physician Notifications Discussed Care of Patient With: Dr. Park (hospitalist) at 21:50 - agrees to admit Instructed by Provider To: Admit As Inpatient Discharge - Discharge Plan Condition: Fair Disposition: ADMITTED TO [facility] Referrals: Guerrero Gtz, [facility] [Primary Care Provider] - The documentation as recorded by the Charly crawford Erika accurately reflects the service I personally performed and the decisions made by me, Oscar Ruano MD.
[2016-08-30] MEDS ORDERED: Vancomycin(*) 1,000 MG in NS 0.9% 250 ML* 250 ML IVPB SCH (22:00)
[2016-08-30] MEDS ORDERED: Albuterol/Ipratropium NEB.SOL* Albuterol 2.5 MG/Ipratropium 0.5 MG 3 ML INH ONE (22:22)
[2016-08-31] MEDS ORDERED: LORazepam TAB(*) 1 MG PO ONE (00:27)
[2016-08-31] MEDS ORDERED: Albuterol HFA INHALER* 8 gm MDI INH PRN (03:23)
[2016-08-31] MEDS ORDERED: Benzonatate CAP* 100 MG PO PRN (03:28)
[2016-08-31] MEDS ORDERED: Vancomycin per Pharmacy* NOTE FOLLOW UP PRN (03:49)
[2016-08-31] MEDS: Morphine INJ* 4 MG/ML 1 ML SYRINGE IV PRN ×2 (04:00→09:38)
[2016-08-31] MEDS: Albuterol 2.5 MG/3 ML NEB.SOL* (0.083%) INH PRN ×3 (05:11→18:09)
[2016-08-31] MEDS: methylPREDNISolone SOD SUCC* 40 MG/ML VIAL IV SCH ×3 (05:17→20:39)
[2016-08-31] MEDS: Levothyroxine TAB* 100 MCG TAB PO SCH (05:17)
[2016-08-31] MEDS: Piperac/Tazob 3.375 gm in NS* 3.375 GM/100 ML BAG IVPB SCH ×4 (05:22→22:14)
[2016-08-31] MEDS: LORazepam INJ* 2 MG/ML 1 ML VIAL IV PUSH PRN ×3 (05:30→19:30)
[2016-08-31] MEDS ORDERED: Heparin VIAL(*) 5000 UNITS/ML VIAL (FIVE THOUSAND) SUBCUT SCH (06:00)
[2016-08-31] MEDS ORDERED: Vancomycin(*) 750 MG in NS 0.9% 250 ML* 250 ML IVPB SCH (08:00)
[2016-08-31] MEDS: Azithromycin IV(*) 500 MG in NS 0.9% 250 ML* 250 ML IVPB SCH (08:01)
[2016-08-31 08:43] LABS: Hematocrit 36 % (35-47); Hemoglobin 11.7 g/dl (12.0-16.0); Mean Corpuscular HGB Conc 33 g/dl (31-36); Mean Corpuscular Hemoglobin 32 pg (27-31); Mean Corpuscular Volume 98 fL (80-97); Mean Platelet Volume 8 um3 (7.4-10.4); Red Blood Count 3.67 10^6/ul (4.0-5.4); Red Cell Distribution Width 15 % (10.5-15)
[2016-08-31] MEDS ORDERED: Ipratropium 0.5MG/2.5ML NEB* 0.5 MG/2.5 ML NEB.SOLN INH SCH (09:00)
[2016-08-31] MEDS ORDERED: Spiriva Inhaler DEVICE* 1 EACH DEVICE INH ONE (09:00)
[2016-08-31] MEDS: Tiotropium CAP.INH* CAP.INH/18 MCG INH SCH (09:03)
[2016-08-31] MEDS: Atenolol TAB* 25 MG PO SCH (10:42)
[2016-08-31] MEDS: busPIRone TAB* 5 MG PO SCH ×2 (10:42→20:39)
[2016-08-31] MEDS: amLODIPine TAB* 5 MG PO SCH (10:43)
[2016-08-31] MEDS: Omeprazole CAP* 20 MG PO SCH ×2 (10:43→20:39)
[2016-08-31] MEDS: DULoxetine DR CAP* 60 MG CAP.DR PO SCH (10:43)
[2016-08-31] MEDS ORDERED: Iohexol 350* (CONTRAST) 500 ML MDV IV ONE (12:08)
--- NOTE | 2016-08-31 12:36 | PN ---
Subjective Date of Service: 08/31/16 Interval History: Pt feels weak and SOB. c/o coughing up green sputum. Lost 6 lbs of weight in 1 week. Objective Active Medications: Albuterol (Ventolin 2.5 Mg/3 Ml Neb.Tracey*) 2.5 mg INH Q4H PRN PRN Reason: SOB/WHEEZING Last Admin: 08/31/16 11:09 Dose: 2.5 mg Albuterol (Ventolin Hfa Inhaler*) 2 puff INH Q4H PRN PRN Reason: SOB/WHEEZING Amlodipine Besylate (Norvasc Tab*) 5 mg PO QAM [facility] Last Admin: 08/31/16 10:43 Dose: 5 mg Atenolol (Tenormin Tab*) 25 mg PO QAM [facility] Last Admin: 08/31/16 10:42 Dose: 25 mg Benzonatate (Tessalon Cap*) 200 mg PO TID PRN PRN Reason: COUGH Buspirone HCl (Buspar Tab*) 7.5 mg PO BID [facility] Last Admin: 08/31/16 10:42 Dose: 7.5 mg Cetirizine HCl (Zyrtec*) 10 mg PO QPM [facility] Duloxetine HCl (Cymbalta Cap*) 60 mg PO DAILY [facility] Last Admin: 08/31/16 10:43 Dose: 60 mg Heparin Sodium (Porcine) (Heparin Vial(*)) 5,000 units SUBCUT Q8HR [facility] Azithromycin 500 mg/ Sodium (Chloride) 250 mls @ 250 mls/hr IVPB Q24H [facility] Last Admin: 08/31/16 08:01 Dose: 250 mls/hr Piperacillin Sod/Tazobactam Sod (Zosyn 3.375 Gm In Ns Premix*) 3.375 gm in 100 mls @ 200 mls/hr IVPB Q6H [facility] Last Admin: 08/31/16 05:22 Dose: 200 mls/hr Vancomycin HCl 750 mg/ Sodium (Chloride) 250 mls @ 166.667 mls/hr IVPB Q8H [facility] PRN Reason: Protocol Levothyroxine Sodium (Synthroid Tab*) 200 mcg PO DAILY@0600 [facility] Last Admin: 08/31/16 05:17 Dose: 200 mcg Lorazepam (Ativan Inj*) 0.5 mg IV PUSH Q4H PRN PRN Reason: ANXIETY Last Admin: 08/31/16 11:48 Dose: 0.5 mg Methylprednisolone Sodium Succinate (Solu-Medrol*) 40 mg IV Q8H [facility] Last Admin: 08/31/16 05:17 Dose: 40 mg Mometasone Furoate (Asmanex 220 Mcg Mdi *) 2 puff INH QPM [facility] Omeprazole (Prilosec Cap*) 40 mg PO BID [facility] Last Admin: 08/31/16 10:43 Dose: 40 mg Pharmacy Consult (Vancomycin Per Pharmacy*) 1 note FOLLOW UP . PRN PRN Reason: PER PROTOCOL Pharmacy Profile Note (Vancomycin Trough Check) 1 note FOLLOW UP 729 ONE Stop: 09/01/16 07:31 Quetiapine Fumarate (Seroquel Tab*) 50 mg PO QPM [facility] Tiotropium [place] (Spiriva Cap.Inh*) 1 cap INH DAILY [facility] Last Admin: 08/31/16 09:03 Dose: 1 cap Tramadol HCl (Ultram*) 50 mg PO Q8H PRN PRN Reason: PAIN Vital Signs 08/31/16 08/31/16 08/31/16 03:30 04:00 04:15 Temperature 98.7 F Pulse Rate 83 85 78 Respiratory 16 16 Rate Blood Pressure 140/84 114/63 (mmHg) O2 Sat by Pulse 96 95 95 Oximetry 08/31/16 08/31/16 08/31/16 04:39 05:00 05:15 Temperature 97.7 F Pulse Rate 94 85 Respiratory 24 22 18 Rate Blood Pressure 142/84 (mmHg) O2 Sat by Pulse 98 98 Oximetry 08/31/16 08/31/16 08/31/16 05:30 05:40 06:30 Temperature Pulse Rate Respiratory 22 20 20 Rate Blood Pressure (mmHg) O2 Sat by Pulse Oximetry 08/31/16 08/31/16 08/31/16 07:11 09:05 09:38 Temperature 98.4 F Pulse Rate 81 100 Respiratory 17 18 16 Rate Blood Pressure 125/69 (mmHg) O2 Sat by Pulse 98 96 Oximetry 08/31/16 08/31/16 08/31/16 11:10 11:25 11:48 Temperature Pulse Rate 98 97 Respiratory 18 20 14 Rate Blood Pressure 140/81 (mmHg) O2 Sat by Pulse 99 95 Oximetry Oxygen Devices in Use Now: Nasal Cannula - at 2l Appearance: 65 yo F in nAd, aAOx3 Eyes: No Scleral Icterus, PERRLA Ears/Nose/Mouth/Throat: NL Teeth, Lips, Gums, Mucous Membranes Moist Neck: NL Appearance and Movements; NL JVP, Trachea Midline Respiratory: Symmetrical Chest Expansion and Respiratory Effort, - - diffuse b/ l wheezes Cardiovascular: RRR, - - 3/6 JULIANNE at left sternal border Abdominal: NL Sounds; No Tenderness; No Distention Lymphatic: No Cervical Adenopathy Extremities: No Edema, No Clubbing, Cyanosis Skin: No Rash or Ulcers, No Nodules or Sclerosis Neurological: Alert and Oriented x 3, NL Muscle Strength and Tone Result Diagrams: 08/31/16 08:33 08/30/16 20:50 Additional Lab and Data: Lab Results 08/30/16 08/30/16 08/30/16 Range/Units 20:50 20:50 20:50 WBC 12.6 H (3.5-10.8) 10^3/ul RBC 3.74 L (4.0-5.4) 10^6/ul Hgb 12.1 (12.0-16.0) g/dl Hct 37 (35-47) % MCV 98 H (80-97) fL MCH 32 H (27-31) pg MCHC 33 (31-36) g/dl RDW 16 H (10.5-15) % Plt Count 357 (150-450) 10^3/ul MPV 8 (7.4-10.4) um3 Neut % (Auto) 85.3 H (38-83) % Lymph % (Auto) 7.2 L (25-47) % Bertie % (Auto) 7.2 (1-9) % Eos % (Auto) 0.1 (0-6) % Baso % (Auto) 0.2 (0-2) % Absolute Neuts (auto) 10.8 H (1.5-7.7) 10^3/ul Absolute Lymphs (auto) 0.9 L (1.0-4.8) 10^3/ul Absolute Monos (auto) 0.9 H (0-0.8) 10^3/ul Absolute Eos (auto) 0 (0-0.6) 10^3/ul Absolute Basos (auto) 0 (0-0.2) 10^3/ul Absolute Nucleated RBC 0.01 10^3/ul Nucleated RBC % 0.1 Sodium 129 L (133-145) mmol/L Potassium 3.7 (3.5-5.0) mmol/L Chloride 94 L (101-111) mmol/L Carbon Dioxide 25 (22-32) mmol/L Anion Gap 10 (2-11) mmol/L BUN 11 (6-24) mg/dL Creatinine 0.61 (0.51-0.95) mg/dL Est GFR ( Amer) 127.0 (>60) Est GFR (Non-Af Amer) 98.7 (>60) BUN/Creatinine Ratio 18.0 (8-20) Glucose 111 H (70-100) mg/dL Lactic Acid 1.0 (0.5-2.0) mmol/L Calcium 8.6 (8.6-10.3) mg/dL Total Bilirubin 0.40 (0.2-1.0) mg/dL AST 15 (13-39) U/L ALT 11 (7-52) U/L Alkaline Phosphatase 56 (34-104) U/L Troponin I 0.01 (<0.04) ng/mL Total Protein 6.1 L (6.4-8.9) g/dL Albumin 3.4 (3.2-5.2) g/dL Globulin 2.7 (2-4) g/dL Albumin/Globulin Ratio 1.3 (1-3) Microbiology and Other Data: Microbiology 08/31/16 04:40 Legionella Urinary Antigen - Final Urine Negative Legionella Streptococcus pneumoniae Ag Screen - Final Negative S. pneumo Antigen Assess/Plan/Problems-Billing Assessment: 65 yo f with h/o lung cancer, s/p ROMAIN lobectomy and chemo in 2012, COPD(has 02 at home, but usually doesn't need it), loculated left pleural effusion with negative malignancy w-up in 02/13, hypothyroidism, heart murmur ( though to be due to PFO in the past) with recent exacerbation of COPD presents for PNA. - Patient Problems (1) COPD (chronic obstructive pulmonary disease) Comment: in exacerbation cont Solu Medrol Continue home inhaler/neb regimen. (2) Healthcare associated bacterial pneumonia Comment: On Vanc/Zosyn/Azithro. Just recently tx with Levaquin (3) History of lung cancer Comment: with loculated left pelural effusion with neg mailignancy work up in 2016 will repeat CTA to re-eval (4) Acute hypoxemic respiratory failure Comment: due to cOPD and pneumonia cont 02 supplementation (5) Hyponatremia Comment: chronic ,at baseline (6) Hypertension Comment: Normotensive Resume home antihypertensives, atenolol/amlodipine (7) DVT prophylaxis Comment: SQ heparin Status and Disposition: inpatient
--- NOTE | 2016-08-31 13:57 | HP ---
HISTORY AND PHYSICAL: DATE OF ADMISSION: 08/31/16 CHIEF COMPLAINT: Shortness of breath and chest tightness. HISTORY OF PRESENT ILLNESS: The patient is a 65-year-old woman recently discharged from [facility], who presents to [facility] with a chief complaint of worsening shortness of breath and chest tightness. She felt she was getting much better but then she says a couple days afterwards , she did finish her Levaquin and she started becoming more short of breath with cough and wheezing. She never uses oxygen at home, but checked her pulse ox and it was continually declining below 90%. She was struggling to breathe. She has a cough with thick clear secretions. She denies fevers or chills, but again has wheezing, was significantly worse. In the ER, the patient had chest x -ray that did show small new left lower lobe infiltrate. PAST MEDICAL HISTORY: Significant for adenocarcinoma of the lung, status post upper lobectomy and chemo treatment; COPD; PFO; hypertension; hyperlipidemia; hypothyroidism; chronic low back pain; opioid and benzodiazepine abuse; hiatal hernia. PAST SURGICAL HISTORY: Left upper lobe lobectomy, tonsillectomy, hysterectomy. MEDICATIONS: Her current medications are as follows: 1. Fluticasone 1 puff twice daily 220 mcg. 2. Spiriva 1 puff daily. 3. Seroquel 50 mg in the evening. 4. Duloxetine 60 mg daily. 5. Atenolol 25 mg in the morning. 6. Amlodipine 5 mg in the morning. 7. Albuterol 2.5 mg inhaled q.4 hours as needed. 8. Omeprazole 40 mg twice daily. 9. Loratadine 10 mg daily. 10. Synthroid 200 mcg daily. 11. Levaquin 500 mg every 4 hours. 12. Atrovent 0.5 mg inhaled 4 times a day. 13. Tramadol 50 mg every 8 hours as needed. 14. Prednisone 40 mg daily. 15. Buspirone 7.5 mg twice daily. ALLERGIES: She has an allergy/adverse reaction to ASPIRIN, she gets anaphylactic shock and LATEX. FAMILY HISTORY: Mother had ulcerative colitis. Father had an NH and in his 50s. SOCIAL HISTORY: A pack a day cigarettes, now down to about 4 cigarettes a day, 25- pack-year history. No alcohol or recreational drug use. She is currently a full code. REVIEW OF SYSTEMS: A 14-point review of systems was completed with the patient. All pertinent positives and negatives are in the history of present illness, otherwise is negative. PHYSICAL EXAMINATION GENERAL: Pleasant woman, lying in bed, in no acute distress. VITAL SIGNS: Temperature 97.7 degrees, heart rate 94 beats per minute, respiratory rate 24 breaths per minute, pulse ox 98%, blood pressure 142/84. HEENT: Normocephalic, atraumatic. Pupils equal, round, reactive to light. Moist mucous membranes. NECK: Supple. No JVD, bruits, palpable thyroid, or lymphadenopathy. CHEST: Bilateral diffuse wheezing. CARDIOVASCULAR: S1, S2 appreciated. Regular rate and rhythm. ABDOMEN: Positive bowel sounds in all 4 quadrants. Soft, nontender, nondistended. EXTREMITIES: No cyanosis, clubbing, or edema. +2 peripheral pulses bilaterally. NEURO: Alert and oriented x3. Moves all extremities. SKIN: No rashes or abnormalities. DIAGNOSTIC STUDIES/LAB DATA: White count 12.6, hemoglobin 12.1, hematocrit 37 , platelets . Sodium 129, potassium 3.7, chloride 94, CO2 25, BUN 11, creatinine 0.61, glucose 111. Chest x-ray shows postsurgical changes, new small left basilar infiltrate, COPD. EKG shows normal sinus rhythm, 72 beats per minute, normal axis, no acute ST-T wave changes. ASSESSMENT AND PLAN: 1. Pneumonia. The patient apparently keeps getting them. I do not know if she is aspirating or not. I will put her on vanco, Zosyn, Zithromax as she is just recently discharged from the hospital. We will check sputum culture and sensitivity and urine for legionella and pneumococcal antigen. May benefit from Pulmonary and/or ID consult. 2. Chronic obstructive pulmonary disease. Solu-Medrol 40 IV q.8 protocol. 3. Hypertension. Borderline control. Continue current regimen and adjust medications accordingly. 4. Gastroesophageal reflux disease. Stable. Continue PPI. 5. FEN. Regular diet. 6. DVT prophylaxis. Heparin subcu. 7. The patient is a full code. TIME SPENT: Over 75 minutes was spent on this H and P, more than 40 minutes of which was spent in direct [id number] contact with the patient in evaluation, physical exam, counseling, and coordination of care. CC: Guerrero Gtz NP* [id number]/[facility] #: [id number] NICOLE
[2016-08-31 14:34] LABS: EGFR African American 95.6 (>60); EGFR Non-African American 74.4 (>60)
--- NOTE | 2016-08-31 14:40 | RAD ---
INDICATION: Chest pain. Short of breath. Evaluate for pulmonary embolus. COMPARISON: Chest x-ray August 30, 2016; CTA chest February 09, 2016 TECHNIQUE: Axial source images were obtained from the thoracic inlet to the hemidiaphragms following administration of 53 mL Omnipaque [address] angiographic technique was utilized. Coronal and sagittal reconstructed images were acquired. CHEST FINDINGS: Neck/thyroid: The visualized neck to include the thyroid appear normal. Chest wall: There are no acute abnormalities of the bony thorax or chest wall. There is prominent kyphosis There is no supraclavicular, infraclavicular, or axillary lymphadenopathy. Lungs : There is left upper lobectomy with resultant mild volume loss there are areas of scarring in the right middle lobe and left lung base. There are underlying emphysematous changes There are no endobronchial lesions. Cardiomediastinal structures: There is no CT evidence of acute pulmonary embolic disease. The heart is normal in size. There is no pericardial effusion. There is no evidence of aortic aneurysm or dissection. There is no discrete mediastinal or hilar adenopathy. A mild increase in radiodensity mediastinum may be related to prior therapy The esophagus appears normal. Pleura : There is pleural fluid some of which is loculated in the left lung base. The hydropneumothorax has resolved, however. Other: None. IMPRESSION: NO CT EVIDENCE OF ACUTE PULMONARY EMBOLIC DISEASE. IMPROVED AERATION OF THE LEFT LUNG BASE. PERSISTENT LEFT-SIDED EFFUSION SOME OF WHICH IS PARTIALLY LOCULATED. LEFT UPPER LOBECTOMY.
[2016-08-31] MEDS: Heparin VIAL(*) 5000 UNITS/ML VIAL (FIVE THOUSAND) SUBCUT SCH ×2 (15:07→22:10)
[2016-08-31] MEDS: traMADol TAB* 50 MG PO PRN (15:24)
[2016-08-31] MEDS ORDERED: QUEtiapine TAB* 25 MG PO SCH (18:00)
[2016-08-31] MEDS: Vancomycin(*) 750 MG in NS 0.9% 250 ML* 250 ML IVPB SCH (18:48)
[2016-08-31] MEDS: Cetirizine* 10 MG TAB PO SCH (18:49)
[2016-08-31] MEDS: Mometasone 220 MCG MDI INH SCH (20:47)
[2016-09-01] MEDS: Vancomycin(*) 750 MG in NS 0.9% 250 ML* 250 ML IVPB SCH ×2 (02:09→10:22)
[2016-09-01] MEDS: LORazepam INJ* 2 MG/ML 1 ML VIAL IV PUSH PRN ×3 (02:45→20:12)
[2016-09-01] MEDS: Albuterol 2.5 MG/3 ML NEB.SOL* (0.083%) INH PRN ×2 (02:49→19:20)
[2016-09-01] MEDS: Piperac/Tazob 3.375 gm in NS* 3.375 GM/100 ML BAG IVPB SCH ×2 (04:20→14:31)
[2016-09-01] MEDS: Azithromycin IV(*) 500 MG in NS 0.9% 250 ML* 250 ML IVPB SCH (05:13)
[2016-09-01] MEDS: methylPREDNISolone SOD SUCC* 40 MG/ML VIAL IV SCH ×3 (05:15→20:16)
[2016-09-01] MEDS: Heparin VIAL(*) 5000 UNITS/ML VIAL (FIVE THOUSAND) SUBCUT SCH ×3 (05:24→22:12)
[2016-09-01] MEDS: Levothyroxine TAB* 100 MCG TAB PO SCH (05:26)
[2016-09-01] MEDS ORDERED: Vancomycin Trough Check NOTE FOLLOW UP ONE (07:30)
[2016-09-01 07:33] LABS: Hematocrit 34 % (35-47); Hemoglobin 10.7 g/dl (12.0-16.0); Mean Corpuscular HGB Conc 32 g/dl (31-36); Mean Corpuscular Hemoglobin 32 pg (27-31); Mean Corpuscular Volume 99 fL (80-97); Mean Platelet Volume 8 um3 (7.4-10.4); Red Cell Distribution Width 16 % (10.5-15); White Blood Count 14.8 10^3/ul (3.5-10.8)
[2016-09-01 07:45] LABS: BUN/Creatinine Ratio 25.3 (8-20); Calcium 8.3 mg/dL (8.6-10.3); EGFR African American 94.2 (>60); EGFR Non-African American 73.3 (>60); Potassium 3.5 mmol/L (3.5-5.0)
--- NOTE | 2016-09-01 08:21 | PN ---
Subjective Date of Service: 09/01/16 Interval History: Patient seen this morning. Says she feels like she is improving. Still with cough and reports "thick sputum" but this is getting better. Occasionally wheezes and still with some TELLES. Denies fever or chills. Family History: Unchanged from Admission Social History: Unchanged from Admission Past Medical History: Unchanged from Admission Objective Active Medications: Albuterol (Ventolin 2.5 Mg/3 Ml Neb.Tracey*) 2.5 mg INH Q4H PRN Albuterol (Ventolin Hfa Inhaler*) 2 puff INH Q4H PRN Amlodipine Besylate (Norvasc Tab*) 5 mg PO QAM [facility] Atenolol (Tenormin Tab*) 25 mg PO QAM [facility] Benzonatate (Tessalon Cap*) 200 mg PO TID PRN Buspirone HCl (Buspar Tab*) 7.5 mg PO BID [facility] Cetirizine HCl (Zyrtec*) 10 mg PO QPM [facility] Duloxetine HCl (Cymbalta Cap*) 60 mg PO DAILY [facility] Heparin Sodium (Porcine) (Heparin Vial(*)) 5,000 units SUBCUT Q8HR [facility] Azithromycin 500 mg/ Sodium (Chloride) 250 mls @ 250 mls/hr IVPB Q24H [facility] Piperacillin Sod/Tazobactam Sod (Zosyn 3.375 Gm In Ns Premix*) 3.375 gm in 100 mls @ 200 mls/hr IVPB Q6H [facility] Vancomycin HCl 750 mg/ Sodium (Chloride) 250 mls @ 166.667 mls/hr IVPB Q8H [facility] Levothyroxine Sodium (Synthroid Tab*) 200 mcg PO DAILY@0600 [facility] Lorazepam (Ativan Inj*) 0.5 mg IV PUSH Q4H PRN Methylprednisolone Sodium Succinate (Solu-Medrol*) 40 mg IV Q8H [facility] Mometasone Furoate (Asmanex 220 Mcg Mdi *) 2 puff INH QPM [facility] Omeprazole (Prilosec Cap*) 40 mg PO BID [facility] Pharmacy Consult (Vancomycin Per Pharmacy*) 1 note FOLLOW UP . PRN Quetiapine Fumarate (Seroquel Tab*) 50 mg PO QPM [facility] Tiotropium [place] (Spiriva Cap.Inh*) 1 cap INH DAILY [facility] Tramadol HCl (Ultram*) 50 mg PO Q8H PRN Vital Signs 08/31/16 08/31/16 08/31/16 09:05 09:38 11:10 Temperature Pulse Rate 100 98 Respiratory 18 16 18 Rate Blood Pressure (mmHg) O2 Sat by Pulse 96 99 Oximetry 08/31/16 08/31/16 08/31/16 11:25 11:48 12:40 Temperature 97.7 F Pulse Rate 97 100 Respiratory 20 14 16 Rate Blood Pressure 140/81 128/78 (mmHg) O2 Sat by Pulse 95 95 Oximetry 09/01/16 09/01/16 03:45 07:42 Temperature 98.0 F Pulse Rate 105 Respiratory 18 16 Rate Blood Pressure 153/98 (mmHg) O2 Sat by Pulse 98 Oximetry Oxygen Devices in Use Now: Nasal Cannula - at 2l Appearance: Middle-aged, F, laying in bed in NAD Eyes: No Scleral Icterus Ears/Nose/Mouth/Throat: Mucous Membranes Moist Neck: NL Appearance and Movements; NL JVP Respiratory: Symmetrical Chest Expansion and Respiratory Effort, - - Mild end- expiratory wheezing, mostly in lower lobes, good air movement Cardiovascular: RRR, - - JULIANNE Abdominal: NL Sounds; No Tenderness; No Distention Lymphatic: No Cervical Adenopathy Extremities: No Edema Skin: No Rash or Ulcers Neurological: Alert and Oriented x 3 Result Diagrams: 09/01/16 07:24 09/01/16 07:24 Assess/Plan/Problems-Billing Assessment: 65 yo f with h/o lung cancer, s/p ROMAIN lobectomy and chemo in 2012, COPD(has 02 at home, but usually doesn't need it), loculated left pleural effusion with negative malignancy w-up in 02/13, hypothyroidism, heart murmur ( though to be due to PFO in the past) with recent exacerbation of COPD presents for PNA. - Patient Problems (1) COPD (chronic obstructive pulmonary disease) Current Visit: No Comment: in exacerbation, seems to be improving. cont Solu Medrol for another 24 hours, transition to PO prednisone tomorrow Continue home inhaler/neb regimen. Would benefit from outpatient pulmonology follow-up (2) Healthcare associated bacterial pneumonia Current Visit: Yes Comment: On Vanc/Zosyn/Azithro. Just recently tx with Levaquin CTA shows resolution of infiltrate, chronic effusion Will check procalcitonin (3) History of lung cancer Current Visit: No Comment: with loculated left pelural effusion with neg mailignancy work up in 2016 CTA mostly unchanged (4) Acute hypoxemic respiratory failure Current Visit: Yes Comment: due to cOPD and pneumonia cont 02 supplementation (5) Hypertension Current Visit: No Comment: Continue home atenolol/amlodipine (6) Hyponatremia Current Visit: No Comment: Resolved, has chronic hyponatremia at baseline (7) DVT prophylaxis Current Visit: No Comment: SQ heparin Status and Disposition: inpatient, likely discharge in 24-48 hours
[2016-09-01] MEDS: Omeprazole CAP* 20 MG PO SCH ×2 (08:52→20:14)
[2016-09-01] MEDS: DULoxetine DR CAP* 60 MG CAP.DR PO SCH (08:52)
[2016-09-01] MEDS: busPIRone TAB* 5 MG PO SCH ×2 (08:53→20:15)
[2016-09-01] MEDS: Atenolol TAB* 25 MG PO SCH (08:53)
[2016-09-01] MEDS: traMADol TAB* 50 MG PO PRN ×2 (08:53→17:07)
[2016-09-01] MEDS: amLODIPine TAB* 5 MG PO SCH (08:53)
[2016-09-01] MEDS: Tiotropium CAP.INH* CAP.INH/18 MCG INH SCH (08:55)
[2016-09-01] MEDS ORDERED: cefTRIAXone VIAL(*) 1,000 MG in NS 0.9% 50 ML* 50 ML IVPB SCH (16:00)
[2016-09-01] MEDS: Cetirizine* 10 MG TAB PO SCH (17:08)
[2016-09-01] MEDS: Mometasone 220 MCG MDI INH SCH (19:18)
[2016-09-01] MEDS ORDERED: QUEtiapine TAB* 25 MG PO SCH (21:00)
[2016-09-02] MEDS: traMADol TAB* 50 MG PO PRN (04:10)
[2016-09-02] MEDS: methylPREDNISolone SOD SUCC* 40 MG/ML VIAL IV SCH (04:10)
[2016-09-02] MEDS: LORazepam INJ* 2 MG/ML 1 ML VIAL IV PUSH PRN ×2 (04:11→08:12)
[2016-09-02] MEDS: Azithromycin IV(*) 500 MG in NS 0.9% 250 ML* 250 ML IVPB SCH (04:11)
[2016-09-02] MEDS: Levothyroxine TAB* 100 MCG TAB PO SCH (06:03)
[2016-09-02] MEDS: Heparin VIAL(*) 5000 UNITS/ML VIAL (FIVE THOUSAND) SUBCUT SCH (06:04)
[2016-09-02 07:20] VITALS: BP 155/91
--- NOTE | 2016-09-02 08:35 | DCNOTE ---
Patient seen this morning. Says she continues to improve. Still with cough that she feels she's having a problem getting the phlegm up. Breathing improving. Became tearful with loss of her sons. On exam, mild expiratory wheeze, good air movement, RRR, JULIANNE, no LE edema. Will discharge home with short course of ABx and prolonged steroid taper. I suspect her short prednisone courses may be the main semi driver of her problems and maybe she needs a longer taper. Will need outpatient Pulm follow-up.
[2016-09-02] MEDS ORDERED: predniSONE TAB* 20 MG ONE (08:48)
[2016-09-02] MEDS: Omeprazole CAP* 20 MG PO SCH (08:56)
[2016-09-02] MEDS: DULoxetine DR CAP* 60 MG CAP.DR PO SCH (08:56)
[2016-09-02] MEDS: busPIRone TAB* 5 MG PO SCH (08:56)
[2016-09-02] MEDS: amLODIPine TAB* 5 MG PO SCH (08:57)
[2016-09-02] MEDS: Atenolol TAB* 25 MG PO SCH (08:57)
[2016-09-02] MEDS ORDERED: predniSONE TAB* 20 MG PO SCH (09:00)
[2016-09-02] MEDS: Tiotropium CAP.INH* CAP.INH/18 MCG INH SCH (11:05)
--- NOTE | 2016-09-03 16:03 | DS ---
CC: TYSON Heck; Dr. Aurelia Fernandez DISCHARGE SUMMARY: DATE OF ADMISSION: 08/31/16 DATE OF DISCHARGE: 09/02/16 PRIMARY CARE PHYSICIAN: TYSON Heck. PULMONOLOGY: Dr. Aurelia Fernandez PRIMARY DISCHARGE DIAGNOSIS: Chronic obstructive pulmonary disease exacerbation secondary to possib le community-acquired pneumonia. SECONDARY DIAGNOSES: 1. History of lung cancer, status post upper lobectomy. 2. Chronic obstructive pulmonary disease. 3. Patent foramen ovale. 4. Hypertension. 5. Hyperlipidemia. 6. Hypothyroidism. 7. Hiatal hernia. STUDIES DONE DURING HOSPITALIZATION: Chest x-ray. Impression: Postsurgical changes, new small lef t basilar infiltrate, COPD. CTA of the chest. Impression: No CT evidence of acute pulmonary embolic disease, improved aeration of the left lung base, persistent left-sided effusion, some of which is partially loculated, left u pper lobectomy. DISCHARGE MEDICATION REGIMEN: 1. Cefpodoxime 200 mg by mouth every 12 hours. 2. Ativan 0.5 mg by mouth every 6 hours as needed for anxiety. 3. Guaifenesin 600 mg by mouth 2 times daily. 4. Prednisone 60 mg daily, taper as instructed over 30 days. 5. Tramadol 50 mg by mouth every 8 hours as needed for pain. 6. BuSpar 7.5 mg by mouth 2 times daily. 7. Atrovent 0.5 mg inhaled 4 times daily. 8. Synthroid 200 mcg by mouth daily. 9. Loratadine 10 mg by mouth daily. 10. Omeprazole 40 mg by mouth 2 times daily. 11. Albuterol 2 puffs inhaled every 4 hours as needed for shortness of breath or wheezing. 12. Amlodipine 5 mg by mouth daily. 13. Atenolol 25 mg by mouth daily. 14. Duloxetine 60 mg by mouth daily. 15. Seroquel 50 mg by mouth at bedtime. 16. Spiriva 1 capsule inhaled daily. 17. Fluticasone 1 puff inhaled 2 times daily. HISTORY OF PRESENT ILLNESS AND HOSPITAL SUMMARY: Please see the full history and physical by Dr. Jad Park for full details. Briefly, Ms. Glover is a 65-year- old female who has had recent admis irma at [facility] for similar issues presenting with shortness of breath and chest tight ness. She reports she was hypoxic at home and felt very short of breath with a thick productive cou gh. She came to the hospital for further evaluation. Initial chest x-ray showed possible left-side d infiltrate; however, CT scan the following day showed no clear evidence of pneumonia. Procalciton in was checked which was negative. The patient was initially started on broad-spectrum antibiotics, subsequently changed to ceftriaxone and azithromycin. On the following day, the patient's symptoms improved. She was no longer short of breath. She requ ired minimal oxygen. I am curious as to whether the patient has actually had a pneumonia or perhaps she just requires longer tapers on her prednisone after discharge. It does seem that her recurrent admissions coincide with her either decreased or cessation of prednisone. I will prescribe a cours e of antibiotics for presumed pneumonia, but I will also give her an extended course of prednisone s tarting at 60 mg by mouth daily for 5 days and decreasing by 10 mg every 5 days. I have also made a referral for her to follow up with Dr. Fernandez in the clinic to see if we could better control her s ymptoms to try to prevent her coming to the hospital. The patient will be discharged home and dillono w up with her PCP. TIME SPENT: Total time spent on this discharge, 40 minutes. This is a summary of hospitalization. Please see the full medical record for further details. [id number]/[facility] #: [id number]
== END 2016-09-02 11:15 | disposition home or self-care (01) | DRG 140 ==
LOC: ED 19:56 → MED 08-31 03:28
PROVIDERS: ADMIT Internal Medicine; ATTEND Hospitalist
DX: J44.1 Chronic obstructive pulmonary disease with (acute) exacerbation (principal); J18.9 Pneumonia, unspecified organism; Q21.1 Atrial septal defect; E87.1 Hypo-osmolality and hyponatremia; I10 Essential (primary) hypertension; E78.5 Hyperlipidemia, unspecified; E03.9 Hypothyroidism, unspecified; K44.9 Diaphragmatic hernia without obstruction or gangrene; Z85.118 Personal history of other malignant neoplasm of bronchus and lung; Z79.52 Long term (current) use of systemic steroids; Z79.899 Other long term (current) drug therapy; Z88.6 Allergy status to analgesic agent; Z91.040 Latex allergy status; Z82.49 Family history of ischemic heart disease and other diseases of the circulatory system; Z83.79 Family history of other diseases of the digestive system; F17.210 Nicotine dependence, cigarettes, uncomplicated
CPT/HCPCS: 36415; 71020; 71275; 80048; 80053; 80202; 82565; 83605; 84145; 84484; 84520; 85025; 85610; 85730; 87040; 87899; 93005; 94640; 94760; A9270-GY; J0456; J0696; J1644; J2060; J2270; J2543; J2920; J2930; J3370; J7512; Q9967

== ENCOUNTER 2016-10-18 19:08 | Observation (INO) | payer BC ==
[2016-10-18 19:56] LABS: Hematocrit 33 % (35-47); Mean Corpuscular HGB Conc 33 g/dl (31-36); Mean Corpuscular Hemoglobin 32 pg (27-31); Mean Corpuscular Volume 96 fL (80-97); Mean Platelet Volume 8 um3 (7.4-10.4); Red Blood Count 3.45 10^6/ul (4.0-5.4); Red Cell Distribution Width 16 % (10.5-15); White Blood Count 11.1 10^3/ul (3.5-10.8)
[2016-10-18 20:10] LABS: Albumin 3.2 g/dL (3.2-5.2); BUN/Creatinine Ratio 13.9 (8-20); Calcium 8.5 mg/dL (8.6-10.3); EGFR African American 94.2 (>60); EGFR Non-African American 73.3 (>60); Total Bilirubin 0.4 mg/dL (0.2-1.0); Total Protein 6.2 g/dL (6.4-8.9)
[2016-10-18 20:12] LABS: Potassium 3.4 mmol/L (3.5-5.0); Troponin I 0.01 ng/mL (<0.04)
[2016-10-18] MEDS ORDERED: Iohexol 350* (CONTRAST) 500 ML MDV IV ONE (20:14)
--- NOTE | 2016-10-18 20:27 | RAD ---
INDICATION: Short of breath COMPARISON: Chest x-ray August 30, 2016 TECHNIQUE: An AP portable view obtained at 2010 hours is submitted. FINDINGS: Bones/Soft Tissues: There are no acute bony findings. There is left rib resection. Cardiomediastinal: The cardiomediastinal silhouette is normal. Lungs: There is volume loss left hemithorax consistent with thoracotomy. The right lung is clear. Pleura: There are no pleural effusions. Other: None IMPRESSION: LEFT THORACOTOMY. NO ACUTE FINDINGS.
--- NOTE | 2016-10-18 20:40 | RAD ---
INDICATION: Chest pain. Short of breath. Evaluate for pulmonary embolus. COMPARISON: CTA chest August 31, 2016; CTA chest February 09, 2016 TECHNIQUE: Axial source images were obtained from the thoracic inlet to the hemidiaphragms following administration of [address] angiographic technique was utilized. Coronal and sagittal reconstructed images were acquired. CHEST FINDINGS: Neck/thyroid: The visualized neck to include the thyroid appear normal. Chest wall: There are no acute abnormalities of the bony thorax or chest wall. There is no supraclavicular, infraclavicular, or axillary lymphadenopathy. Lungs : There are no pulmonary parenchymal masses or infiltrates. There are mild chronic interstitial changes. There is left upper lobectomy. There are no endobronchial lesions. Cardiomediastinal structures: There is adherent thrombus involving fourth order branches to the left lower lobe consistent with subacute to chronic thrombus. There appears to be mild distal pruning of the distal pulmonary arteries involving the left lower lobe which is progressive over the last 2 examinations. The heart is normal in size. There is no pericardial effusion. There is no evidence of aortic aneurysm or dissection. There is no mediastinal or hilar adenopathy. There is increased density of the mediastinum which may be related to prior therapy. The esophagus appears normal. Pleura : There are no pleural-based masses or effusions. Other: None. IMPRESSION: LEFT-SIDED THORACOTOMY WITH LEFT UPPER LOBECTOMY. SUBACUTE TO CHRONIC THROMBUS INVOLVING FOURTH ORDER IN DISTAL BRANCHES SUPPLYING THE LEFT LOWER LOBE.
[2016-10-18] MEDS ORDERED: Nitroglycerin TAB 0.4 MG* 0.4 MG TAB SL ONE (20:59)
[2016-10-18] MEDS ORDERED: Enoxaparin(*) 60 MG/0.6 ML SYR SUBCUT ONE (21:18)
[2016-10-18] MEDS ORDERED: Acetaminophen TAB* 325 MG PO ONE (21:21)
[2016-10-18] MEDS ORDERED: Acetaminophen TAB* 325 MG ONE (21:23)
[2016-10-18] MEDS ORDERED: NS 0.9% 1000 ML* 1,000 ML IV SCH ×2 (21:30→23:45)
[2016-10-18] MEDS ORDERED: Potassium Chlor TAB* 20 MEQ TAB.ER PO ONE (23:51)
[2016-10-18] MEDS ORDERED: Albuterol 2.5 MG/3 ML NEB.SOL* (0.083%) INH PRN (23:53)
[2016-10-19 00:10] LABS: Magnesium 1.3 mg/dL (1.9-2.7)
[2016-10-19] MEDS: Acetaminophen TAB* 325 MG PO PRN ×2 (02:47→12:33)
[2016-10-19 03:00] LABS: Urine Bacteria Absent (Absent); Urine Bilirubin Negative (Negative); Urine Glucose Negative (Negative); Urine Nitrite Negative (Negative)
--- NOTE | 2016-10-19 05:48 | ED ---
I, Oh,Sochirag, scribed for Filiberto Rico MD on 10/18/16 at 2008 . Shortness of Breath - HPI Summary HPI Summary: This 65 y/o female is BIBA BLS for difficulty breathing since this morning. Pt woke up with dyspnea at 0330 AM. "My sats are okay but I am working harder to breath." Pt is unsure if her trouble breathing is due to anxiety. Nebulizer did not help the symptoms. Positive chest tightness, which is currently rated 5-6/ 10. Positive intermittent fever and diaphoresis. Temperature of 100.2 F is noted at initial evaluation. PMHx is significant for lung CA s/p left upper lobectomy in 2012, COPD, PNA, and known anxiety. Chest tightness and dyspnea are worse with increased anxiety. Pt also reports increased stressor due to her son's recent passing. Pt is current smoker. Primary care involves Guerrero Gtz NP. - History of Current Complaint Hx Obtained From: Patient, Family/Radiation Engineer, Medical Records Onset/Duration: Sudden Onset, Still Present Timing: Constant Current Severity: Moderate Dyspnea At: Rest Aggrevating Factors: Nothing Alleviating Factors: Nothing Associated Signs & Symptoms: Cough (Nonproductive), Chest Pain Unrelated to Cough - chest tightness, Fever - intermittent, Diaphoresis - intermittent - Allergy/Home Medications Allergies/Adverse Reactions: Allergies Allergy/AdvReac Type Severity Reaction Status Date / Time Aspirin Allergy Anaphylatic Verified 08/24/16 00:52 Shock Latex AdvReac Mild Rash Verified 08/24/16 00:52 PMH/Surg Hx/FS Hx/Imm Hx Endocrine/Hematology History: Reports: Hx Thyroid Disease - hypothyroid, Other Endocrine/Hematological Disorders - Benign goiter Denies: Hx Bone Marrow Disease, Hx Diabetes, Hx Systemic Lupus Erythematosus Cardiovascular History: Reports: Hx Hypercholesterolemia - was high before cancer,now off meds., Hx Hypertension, Other Cardiovascular Problems/Disorders - patent foramen ovale; Murmur Denies: Hx Congestive Heart Failure, Hx Pacemaker/ICD Respiratory History: Reports: Hx Chronic Obstructive Pulmonary Disease (COPD), Hx Lung Cancer - Left upper lobectomy, Hx Pneumonia, Other Respiratory Problems/ Disorders - lung cancer, LOBECTOMY 09/11/11 GI History: Reports: Hx Gastroesophageal Reflux Disease, Hx Hiatal Hernia, Other GI Disorders - hiatal hernia, colitis. 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, Hx Osteoporosis - Possible, Hx Scoliosis, Other Musculoskeletal History - scoliosis Denies: Hx Rheumatoid Arthritis Sensory History: Reports: Hx Cataracts - PATIENT STATES BEGINING OF CATARACTS LEFT EYE, Hx Contacts or Glasses, Hx Hearing Problem - right Denies: Hx Hearing Aid Opthamlomology History: Reports: Hx Cataracts - PATIENT STATES BEGINING OF CATARACTS LEFT EYE, Hx Contacts or Glasses Neurological History: Reports: Hx Headaches - frequent h/a's, Hx Migraine - Rare post menopause Psychiatric History: Reports: Hx Anxiety, Hx Depression, Hx Community Mental Health Tx, Hx Substance Abuse - opiods Denies: Hx Panic Disorder, Hx Inpatient Treatment - Cancer History Cancer Type, Location and Year: LUNG CA, DIAGNOSED July 2012 Hx Chemotherapy: Yes Hx Radiation Therapy: No Hx Palliative Cancer Treatment: No - Surgical History Surgery Procedure, Year, and Place: LEFT UPPER LUNG REMOVED 09/2012, HYSTERECTOMY , tonsillectomy Hx Anesthesia Reactions: No - Immunization History Date of Tetanus Vaccine: UTD Date of Influenza Vaccine: 05/01/16 Infectious Disease History: No Infectious Disease History: Denies: Hx of Known/Suspected MRSA, Traveled Outside the [place] in Last 30 Days - Family History Known Family History: Positive: Cardiac Disease - Sudden cardiac arrest (father) , Other - son -- glioblastoma. UC mother - Social History Lives: Alone Alcohol Use: None Hx Substance Use: No Substance Use Type: Reports: None Substance Use Comment - Amount & Last Used: opiates Hx Tobacco Use: Yes Smoking Status (MU): Current Every Day Smoker Type: Cigarettes Amount Used/How Often: 1/2 pack a day Length of Time of Smoking/Using Tobacco: 47 years Have You Smoked in the Last Year: Yes Review of Systems Positive: Fever - intermittent, Skin Diaphoresis - intermittent Negative: Photophobia, Erythema Negative: Sore Throat Positive: Chest Pain - chest tightness Positive: Shortness Of Breath, Cough - chronic, mild Negative: Abdominal Pain, Vomiting, Nausea Negative: dysuria, hematuria Negative: Myalgia, Edema Negative: Rash Neurological: Other - negative dizziness Negative: Headache Positive: Anxious All Other Systems Reviewed And Are Negative: Yes Physical Exam - Summary Physical Exam Summary: Constitutional: Well-developed, Well-nourished, Alert. (-) Distressed Skin: Warm, Dry HENT: Normocephalic; Atraumatic Eyes: Conjunctiva normal Neck: Musculoskeletal ROM normal neck. (-) JVD, (-) Stridor, (-) Tracheal deviation Cardio: Rhythm regular, rate normal, Heart sounds normal; Intact distal pulses; The pedal pulses are 2+ and symmetric. Radial pulses are 2+ and symmetric. (-) Murmur Pulmonary/Chest wall: Effort normal. (-) Respiratory distress, (-) Wheezes, (-) Rales Abd: Soft, (-) Tenderness, (-) Distension, (-) Guarding, (-) Rebound Musculoskeletal: (-) Edema Lymph: (-) Cervical adenopathy Neuro: Alert, Oriented x3 Psych: Mood and affect Normal Triage Information Reviewed: Yes Vital Signs On Initial Exam: Initial Vitals Temp Pulse Resp BP Pulse Ox 100.2 F 98 24 105/67 100 10/18/16 19:20 10/18/16 19:20 10/18/16 19:20 10/18/16 19:20 10/18/16 19:20 Vital Signs Reviewed: Yes - [place] Coma Scale Coma Scale Total: 15 Diagnostics - Vital Signs Vital Signs Temp Pulse Resp BP Pulse Ox 10/18/16 19:41 95 22 98 10/18/16 19:40 121/75 10/18/16 19:20 100.2 F 98 22 105/67 100 - Laboratory Lab Results: Lab Results 10/18/16 Range/Units 19:45 WBC 11.1 H (3.5-10.8) 10^3/ul RBC 3.45 L (4.0-5.4) 10^6/ul Hgb 11.0 L (12.0-16.0) g/dl Hct 33 L (35-47) % MCV 96 (80-97) fL MCH 32 H (27-31) pg MCHC 33 (31-36) g/dl RDW 16 H (10.5-15) % Plt Count 377 (150-450) 10^3/ul MPV 8 (7.4-10.4) um3 Neut % (Auto) 76.0 (38-83) % Lymph % (Auto) 15.9 L (25-47) % [place] % (Auto) 6.9 (1-9) % Eos % (Auto) 0.5 (0-6) % Baso % (Auto) 0.7 (0-2) % Absolute Neuts (auto) 8.5 H (1.5-7.7) 10^3/ul Absolute Lymphs (auto) 1.8 (1.0-4.8) 10^3/ul Absolute Monos (auto) 0.8 (0-0.8) 10^3/ul Absolute Eos (auto) 0.1 (0-0.6) 10^3/ul Absolute Basos (auto) 0.1 (0-0.2) 10^3/ul Absolute Nucleated RBC 0 10^3/ul Nucleated RBC % 0 Result Diagrams: 10/18/16 19:45 10/18/16 19:45 Lab Statement: Any lab studies that have been ordered have been reviewed, and results considered in the medical decision making process. - Radiology X-ray Xray Interpretation: No Acute Changes - Left thoracotomy. No acute findings. Radiology Interpretation Completed By: Radiologist - CT CTA Chest/Thorax CT Interpretation: Positive (See Comments) - LEFT-SIDED THORACOTOMY WITH LEFT UPPER LOBECTOMY. SUBACUTE TO CHRONIC THROMBUS INVOLVING FOURTH ORDER IN DISTAL BRANCHES SUPPLYING THE LEFT LOWER LOBE. CT Interpretation Completed By: Radiologist - EKG 1955 Cardiac Rate: NL EKG Rhythm: Sinus Rhythm EKG Interpretation: LVH, otherwise nml. Re-Evaluation - Re-Evaluation First Eval Re-Evaluation Time: 21:18 Comment: When pt ambulated around ED, pt maintained reasonable oxygen sat, but did develop jaw pain. Course/Dx - Course Assessment/Plan: This 65 y/o female presents to ED for difficulty breathing and chest tightness. "My sats are okay but I work harder to breath". Positive chest tightness that is currently rated 5-6/10. Oxygen sat of 100 % noted at initial evaluation. Pt is not sure if these symptoms are induced with increased anxiety. PMHx does include COPD, pna, Lung CA s/p lobectomy, and known anxiety. CTA chest/thorax does indicate subacute PE. Pt was ambulated around ED during which pt was able to maintain reasonable oxygen sat, but did develop jaw pain. Exam findings, imaging studies, and lab results are discussed with Dr. Garcia. - Diagnoses Provider Diagnoses: Pulmonary embolism, Chest pain - Physician Notifications Discussed Care of Patient With: Dr. Garcia (Hospitalist) at 2115 PM Instructed by Provider To: Admit As Inpatient Discharge - Discharge Plan Condition: Stable Disposition: ADMITTED TO [facility] documentation as recorded by the Telly crawford Soohyun accurately reflects the service I personally performed and the decisions made by , Filiberto Rico MD.
[2016-10-19 05:49] LABS: Hematocrit 33 % (35-47); Hemoglobin 11.1 g/dl (12.0-16.0); Mean Corpuscular HGB Conc 34 g/dl (31-36); Mean Corpuscular Hemoglobin 32 pg (27-31); Mean Corpuscular Volume 97 fL (80-97); Mean Platelet Volume 8 um3 (7.4-10.4); Red Blood Count 3.44 10^6/ul (4.0-5.4); Red Cell Distribution Width 15 % (10.5-15); White Blood Count 8.6 10^3/ul (3.5-10.8)
--- NOTE | 2016-10-19 05:51 | HP ---
HISTORY AND PHYSICAL: DATE OF ADMISSION: 10/18/16 PRIMARY CARE PROVIDER: Guerrero Gtz NP CHIEF COMPLAINT: Shortness of breath. HISTORY OF PRESENT ILLNESS: Ms. Glover is a 65-year-old female with a known history of COPD, anxiety/depression, hypertension, hyperlipidemia, hypothyroidism, and chronic pain who presents to the emergency room with complaints of shortness of breath. The patient states that she awakened at approximately 3:30 a.m. on the feeling as she was struggling to breathe. She checked her O2 saturation, which was noted to be better than her usual. Though, she felt as though she was having a difficult time breathing. The patient used nebulizer treatment at that point and continued to take nebulizer treatments every three and a half hours throughout the day. Despite the frequent nebulizer treatment, she noted that her breathing continued to worsen. The patient states that with the worsening shortness of breath, her anxiety amplified and this too contributed to her marked shortness of breath. The patient states that she did not really have any chest pain, but felt tightness across her chest. She had no change in her cough. She does note that she has thick sputum, but this too is at baseline. The patient states that she fell asleep in the emergency room. Upon waking up, she feels that her breathing is almost back to normal. PAST MEDICAL HISTORY: 1. 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 2. COPD. 3. History of adenocarcinoma of the left lung, status post left upper lobectomy. 4. History of PFO. 5. Hypertension. 6. Hyperlipidemia. 7. Hypothyroidism. 8. Chronic back pain. 9. History of opiate and benzo abuse. PAST SURGICAL HISTORY: 1. Tonsillectomy. 2. Hysterectomy. MEDICATIONS: 1. Albuterol 2 puffs inhaled q.4 hours p.r.n. shortness of breath. 2. Albuterol 1 neb inhaled q.4 hours p.r.n. shortness of breath. 3. Atenolol 25 mg p.o. daily. 4. Amlodipine 5 mg p.o. daily. 5. Omeprazole 40 mg p.o. b.i.d. 6. Claritin 10 mg p.o. daily. 7. Synthroid 200 mcg p.o. daily. 8. Ipratropium 0.5 mg inhaled 4 times daily. 9. Flovent 1 puff inhaled twice daily. 10. Guaifenesin ER 600 mg p.o. b.i.d. 11. Spiriva one puff inhaled daily. 12. Seroquel 50 mg p.o. q.h.s. ALLERGIES: ASPIRIN and LATEX. FAMILY HISTORY: Dad in his 50s of an NE. Mom had ulcerative colitis. SOCIAL HISTORY: The patient has a [id number] history of smoking, is currently smoking 3 to 4 cigarettes per day. She denies any alcohol use. 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 She lives alone. She indicates that her daughter, Elyssa Glover, is her healthcare proxy. REVIEW OF SYSTEMS: The patient denies any fevers, chills, or anorexia. No chest pain, no edema. She admits to chronic cough that is unchanged. She admits to shortness of breath as above. She admits to having nausea and vomiting early on the day of admission as she attributes to her anxiety and it is now resolved. She denies any constipation or diarrhea. No abdominal pain. No hematochezia. No hematuria. No dysuria. No focal weakness or sensory loss. No sudden changes in vision. No dysphagia. No joint pain or muscle pains out of the ordinary. No rashes. She again admits to anxiety and depression. PHYSICAL EXAMINATION GENERAL: The patient is a well developed, middle-aged female, sitting in the stretcher, in no acute distress. VITAL SIGNS: Blood pressure 157/80, pulse 88, respirations 16, temperature 100.2, O2 sat 97% on room air. HEENT: Pupils are equal. They are round. They react to light. Extraocular muscles are intact. Oropharynx is clear. Oral mucosa is moist. There is no submandibular, cervical or supraclavicular adenopathy. PULMONARY: Breath sounds are slightly diminished in all lung barron, but otherwise they are clear to auscultation bilaterally. CARDIAC: Normal S1 and S2. Regular rate and rhythm with a 3/6 systolic murmur heard best at the left upper sternal border. There is lower extremity edema. ABDOMEN: Bowel sounds are present. Abdomen is soft, nontender, and nondistended. MUSCULOSKELETAL: There is no cyanosis or clubbing of the digits. There is full active range of motion. SKIN: Warm and dry. There are no rashes. NEUROLOGIC: Cranial nerves II through XII are grossly intact. Sensation is intact to light touch throughout. Strength is 5/5 and symmetrical in both upper and lower extremities bilaterally. PSYCH: The patient is alert. She is oriented to x3. Affect appears appropriate. LABORATORY DATA: WBC 11.1, hemoglobin 11.0, hematocrit 33, and platelets 377. Sodium 125, potassium 3.4, chloride 91, CO2 21, BUN 11, creatinine 0.79, glucose 151, lactic acid 1.2, calcium 8.5, bilirubin 0.4. AST 22, ALT 10, alk phos 64, troponin 0.01, albumin 3.2. EKG reveals normal sinus rhythm with biatrial enlargement. Slight ST elevation in the anterior leads that is not changed from prior. Chest x-ray, status post left thoracotomy. No acute findings. CTA chest, left-sided thoracotomy with left upper lobectomy. Subacute chronic thrombus involving 4th order in distal branches supplying the left lower lobe. ASSESSMENT AND PLAN: Ms. Glover is a 65-year-old female with a known history of chronic obstructive pulmonary disease, significant anxiety, depression, chronic hyponatremia, hypertension, hyperlipidemia, hypothyroidism, and chronic pain who presents to the emergency room with complaints of sudden onset of shortness of breath at approximately 3:30 a.m. with progressive shortness of breath throughout the day. 1. Dyspnea. The etiology of this I do not believe is completely clear. The patient's CTA is being read as having subacute to chronic fourth order pulmonary embolus. I doubt that this is significant enough to cause the patient 's shortness of breath. The patient does have a slight white blood cell count elevation and temperature making me suspect possibly either bronchitis or pneumonia maybe at play. Additionally, the patient has significant anxiety and I believe that this contributed significantly to her presenting symptoms. The patient states that her breathing is almost completely back to normal at this point. We will go ahead and admit the patient under observation status to evaluate her respiratory status over the course of the evening. I will go ahead and treat her as if she has possible pneumonia with Levaquin 500 mg p.o. daily. Additionally, she will be treated for this possible pulmonary embolus; however, I do believe that this can should be reviewed with another radiologist in the morning prior to committing the patient to anticoagulation. It is unclear if she would actually benefit from anticoagulation at this point. I will go ahead and get a Doppler; however, to evaluate for possible lower extremity deep venous thromboses. 2. Hyponatremia. The patient is frequently found to be hyponatremic. Previously, the patient has had primary polydipsia as the cause of her hyponatremia. The patient will be started on normal saline at 75 mL per hour. We will follow up sodium level in the morning. 3. Chronic obstructive pulmonary disease. At this point, there are no signs of exacerbation. She will continue on her usual inhaler and nebulizer regimen. 4. Hypertension. The patient's blood pressure is moderately elevated at this time; however, it is not clear if she took her medications on the day of admission. I will resume these and we will follow her blood pressure. 5. Hypothyroidism. The patient will continue on her current dose of Synthroid. 6. Chronic back pain. Tylenol will be available. 7. DVT prophylaxis: According to the Adult Thrombosis Prophylaxis Risk Factor Assessment Guide, the patient has a total risk factor score of 7 making her at highest risk. She will be on Lovenox already for pulmonary embolus treatment. 8. Code status is full. TIME SPENT: 65 minutes were spent admitting this patient. CC: Guerrero Gtz NP * [id number]/JEANNIE #: [id number] NICOLE
[2016-10-19] MEDS ORDERED: Levothyroxine TAB* 100 MCG TAB PO SCH (06:00)
[2016-10-19 06:01] LABS: BUN/Creatinine Ratio 12.8 (8-20); Calcium 8.2 mg/dL (8.6-10.3); EGFR African American 95.6 (>60); EGFR Non-African American 74.4 (>60); Potassium 3.8 mmol/L (3.5-5.0)
--- NOTE | 2016-10-19 08:49 | RAD ---
HISTORY: Dyspnea COMPARISONS: None relevant TECHNIQUE: Multiple transverse and longitudinal ultrasound images were obtained of the bilateral lower extremities from the level of the common femoral vein inferiorly through to the infrapopliteal veins using grayscale, color Doppler, and spectral Doppler imaging with and without compression and with augmentation. FINDINGS: VEINS: The venous system of the bilateral lower extremities is compressible throughout its course, with normal flow on color Doppler imaging and normal response to augmentation on spectral Doppler imaging. SOFT TISSUES: Unremarkable. OTHER FINDINGS: None. IMPRESSION: 1. NO RIGHT LOWER EXTREMITY DEEP VEIN THROMBOSIS. 2. NO LEFT LOWER EXTREMITY DEEP VEIN THROMBOSIS
[2016-10-19] MEDS ORDERED: Omeprazole CAP* 20 MG PO SCH (09:00)
[2016-10-19] MEDS ORDERED: guaiFENesin ER TAB 600 MG PO SCH (09:00)
[2016-10-19] MEDS ORDERED: Spiriva Inhaler DEVICE* 1 EACH DEVICE INH ONE (09:00)
[2016-10-19] MEDS ORDERED: Tiotropium CAP.INH* CAP.INH/18 MCG INH SCH (09:00)
[2016-10-19] MEDS ORDERED: Atenolol TAB* 25 MG PO SCH (09:00)
[2016-10-19] MEDS ORDERED: Enoxaparin(*) 60 MG/0.6 ML SYR SUBCUT SCH (09:00)
[2016-10-19] MEDS ORDERED: amLODIPine TAB* 5 MG PO SCH (09:00)
[2016-10-19] MEDS ORDERED: Rivaroxaban TAB(*) 15 MG PO ONE (11:42)
[2016-10-19 12:23] VITALS: BP 120/63
[2016-10-19] MEDS ORDERED: QUEtiapine TAB* 25 MG PO SCH (18:00)
[2016-10-19] MEDS ORDERED: Mometasone 220 MCG MDI INH SCH (18:00)
--- NOTE | 2016-10-20 08:04 | DS ---
DISCHARGE SUMMARY: DATE OF ADMISSION: 10/18/16 DATE OF DISCHARGE: 10/19/16 PRIMARY CARE PROVIDER: Guerrero Gtz NP DISCHARGING PROVIDER: ALEJANDRO Martin SUPERVISING PHYSICIAN: Valencia Brannon MD (DICTATED BY ALEJANDRO MARTIN) PRIMARY DISCHARGE DIAGNOSES: 1. Dyspnea - likely secondary to anxiety. 2. Possible chronic pulmonary embolus. 3. Hyponatremia - resolved. SECONDARY DISCHARGE DIAGNOSES: 1. Chronic obstructive pulmonary disease without evidence of acute exacerbation. 2. History of anxiety and depression. 3. Hypothyroidism. 4. Chronic pain. 5. Hypertension. 6. Hyperlipidemia. HOME MEDICATIONS: 1. Nebulized albuterol, inhaled q.4 hours as needed for shortness of breath. 2. Amlodipine 5 mg p.o. daily. 3. Atenolol 25 mg p.o. daily. 4. Fluticasone inhaler 1 puff inhaled twice daily. 5. Ipratropium nebulized, inhaled 4 times daily as needed for shortness of breath. 6. Levothyroxine 200 mcg p.o. daily. 7. Loratadine 10 mg p.o. daily. 8. Omeprazole 40 mg p.o. twice daily. 9. Seroquel 50 mg p.o. daily. 10. Xarelto 15 mg p.o. twice daily x21 days followed by 20 mg daily. 11. Spiriva one capsule inhaled daily. 12. Ultram 50 mg p.o. t.i.d. as needed for pain. 13. Mucinex 600 mg p.o. b.i.d. Medication changes: Xarelto as listed above. HOSPITAL IMAGIN. Chest x-ray demonstrates history of left thoracotomy and no other acute findings. 2. CTA of the chest demonstrates what appears to be subacute or chronic thrombus in the distal left lower lobe branches and evidence of an old left- sided thoracotomy with left upper lobectomy. 3. Lower extremity Doppler's show no evidence of DVT bilaterally. HOSPITAL COURSE: This is a 65-year-old female with a history of COPD as well as significant anxiety and depression, remote history of lung cancer; who presented to the emergency department with complaints of shortness of breath. She states that she awoke suddenly at about 3:30 in the morning, on the day of admission with symptoms of shortness of breath. She took multiple nebulizer treatments throughout the day and did not feel that her shortness of breath was improving, but her anxiety was increasing. So she subsequently presented to the emergency department. Initial chest x-ray was unremarkable. A CTA of the chest was performed which demonstrated what was read as subacute or chronic PEs in the distal left lower lobe branches. The distal nature and subacute or chronic findings makes this unlikely to be related to her acute symptoms. Lower extremity Doppler was performed which was negative for DVT. Images were reviewed with Radiology who felt that differential diagnosis for the findings could be old infection, but more likely to represent a subacute or chronic PE. Review of prior CTAs indicate this patient has had prior infection in that region. Findings were discussed with the patient. She felt more comfortable pursuing anticoagulation for 6 months rather than repeat imaging if symptoms recur. The patient's complaints of shortness of breath resolved after reaching the emergency department and did not recur. Oxygenation remained within normal limits on her typical 2 L via nasal cannula and her lungs were clear to auscultation at the time of discharge. DISPOSITION: The patient is being discharged to home with Xarelto as described above for a total of 21 days at current dosing after which it should be followed by 20 mg daily. This prescription will need to be written by her primary care provider. No other changes were made to the patient's home medications and no evidence of exacerbation of her COPD. ALEJANDRO MARTIN CC: Guerrero Gtz NP* [id number]/[facility] #: [id number] NICOLE
== END 2016-10-19 13:00 | disposition home or self-care (01) ==
LOC: ED 19:08 → MEDTELE 21:30
PROVIDERS: ADMIT Hospitalist; ATTEND Internal Medicine
DX: R06.00 Dyspnea, unspecified (principal); E87.1 Hypo-osmolality and hyponatremia; J44.9 Chronic obstructive pulmonary disease, unspecified; F41.9 Anxiety disorder, unspecified; F32.9 Major depressive disorder, single episode, unspecified; E03.9 Hypothyroidism, unspecified; G89.29 Other chronic pain; I10 Essential (primary) hypertension; E78.5 Hyperlipidemia, unspecified; R94.31 Abnormal electrocardiogram [ECG] [EKG]; Z79.01 Long term (current) use of anticoagulants; Z79.899 Other long term (current) drug therapy; Z88.6 Allergy status to analgesic agent; F17.210 Nicotine dependence, cigarettes, uncomplicated; Z85.118 Personal history of other malignant neoplasm of bronchus and lung; I27.82 Chronic pulmonary embolism
CPT/HCPCS: 36415; 71010; 71275; 80048; 80053; 81003; 81015; 83036; 83605; 83735; 83935; 84300; 84484; 85025; 85027; 87040; 87502; 93005; 93970; 94640; 96360; 96361; 96372; 99284; 99406; A9270-GY; G0378; J1650; Q9967

== ENCOUNTER 2016-11-18 16:19 | Emergency (ER) | payer BC ==
[2016-11-18] MEDS ORDERED: Morphine INJ* 4 MG/ML 1 ML SYRINGE IV ONE (16:54)
[2016-11-18] MEDS ORDERED: Ondansetron INJ* 2 MG/ML VIAL IV ONE (16:54)
[2016-11-18] MEDS ORDERED: Pantoprazole IV* 40 MG IV ONE (16:54)
[2016-11-18] MEDS ORDERED: Ondansetron INJ* 2 MG/ML VIAL ONE (16:59)
[2016-11-18] MEDS: NS 0.9% 1000 ML* 2,000 ML IV ONE ×3 (17:17→19:15)
--- NOTE | 2016-11-18 19:02 | ED ---
April Winkler Salem, scribed for Pawan Duarte MD on 11/18/16 at 1703 . Complex/Multi-Sys Presentation - HPI Summary HPI Summary: Patient is a 66 y/o F who presents to the ED with intermittent abd pain for the past 3 days. She reports vomiting (6 times today, but more yesterday), chills, decreased PO intake, and hot flashes, but denies fever, diarrhea, palpations, SOB (except what she typically experiences due to COPD), CP, blood in stool, or hematemesis. She states that she has only consumed Alisha Kelsey with salt today due to vomiting and that she has not had any atypical food before onset. Pt also states that she has been on Xarelto for a month secondary to a hx of PE. She denies a hx of diverticulitis. 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 - History Of Current Complaint Chief Complaint: EDGeneral Time Seen by Provider: 11/18/16 16:41 Hx Obtained From: Patient Onset/Duration: Gradual Onset, Lasting Days, Still Present Timing: Intermittent, Lasting: Severity Currently: Moderate Severity Initially: Moderate Aggravating Factor(s): PO intake. Alleviating Factor(s): NPO. Associated Signs And Symptoms: Positive: Vomiting, Abdominal Pain, Other - Chills. Hot flashes. - Allergies/Home Medications Allergies/Adverse Reactions: Allergies Allergy/AdvReac Type Severity Reaction Status Date / Time Aspirin Allergy Anaphylatic Verified 08/24/16 00:52 Shock Latex AdvReac Mild Rash Verified 08/24/16 00:52 PMH/Surg Hx/FS Hx/Imm Hx Endocrine/Hematology History: Reports: Hx Thyroid Disease - hypothyroid, Other Endocrine/Hematological Disorders - Benign goiter Denies: Hx Bone Marrow Disease, Hx Diabetes, Hx Systemic Lupus Erythematosus Cardiovascular History: Reports: Hx Hypercholesterolemia - was high before cancer,now off meds., Hx Hypertension, Other Cardiovascular Problems/Disorders - patent foramen ovale; Murmur Denies: Hx Congestive Heart Failure, Hx Pacemaker/ICD Respiratory History: Reports: Hx Chronic Obstructive Pulmonary Disease (COPD), Hx Lung Cancer - Left upper lobectomy, Hx Pneumonia, Other Respiratory Problems/ Disorders - lung cancer, LOBECTOMY 09/11/11 GI History: Reports: Hx Gastroesophageal Reflux Disease, Hx Hiatal Hernia, Other GI Disorders - hiatal hernia, colitis. 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, Hx Osteoporosis - Possible, Hx Scoliosis, Other Musculoskeletal History - scoliosis Denies: Hx Rheumatoid Arthritis Sensory History: Reports: Hx Cataracts - PATIENT STATES BEGINING OF CATARACTS LEFT EYE, Hx Contacts or Glasses, Hx Hearing Problem - right Denies: Hx Hearing Aid Opthamlomology History: Reports: Hx Cataracts - PATIENT STATES BEGINING OF CATARACTS LEFT EYE, Hx Contacts or Glasses Neurological History: Reports: Hx Headaches - frequent h/a's, Hx Migraine - Rare post menopause Psychiatric History: Reports: Hx Anxiety, Hx Depression, Hx Community Mental Health Tx, Hx Substance Abuse - opiods Denies: Hx Panic Disorder, Hx Inpatient Treatment - Cancer History Cancer Type, Location and Year: LUNG CA, DIAGNOSED July 2012 Hx Chemotherapy: Yes Hx Radiation Therapy: No Hx Palliative Cancer Treatment: No - Surgical History Surgery Procedure, Year, and Place: LEFT UPPER LUNG REMOVED 09/2012, HYSTERECTOMY , tonsillectomy Hx Anesthesia Reactions: No - Immunization History Date of Tetanus Vaccine: UTD Date of Influenza Vaccine: 05/01/16 Infectious Disease History: No Infectious Disease History: Denies: Hx of Known/Suspected MRSA, Traveled Outside the [place] in Last 30 Days - Family History Known Family History: Positive: Cardiac Disease - Sudden cardiac arrest (father) , Other - son -- glioblastoma. UC mother. Fhx of colitis. - Social History Alcohol Use: None Hx Substance Use: No Substance Use Type: Reports: None Substance Use Comment - Amount & Last Used: opiates Hx Tobacco Use: Yes Smoking Status (MU): Current Every Day Smoker Type: Cigarettes Amount Used/How Often: 1/2 pack a day Length of Time of Smoking/Using Tobacco: 47 years Have You Smoked in the Last Year: Yes Review of Systems Positive: Chills, Other - Hot flashes. . Negative: Fever Negative: Palpitations, Chest Pain Negative: Shortness Of Breath Positive: Abdominal Pain, Vomiting. Negative: Diarrhea Genitourinary: Other - No blood in stool or hematemesis. All Other Systems Reviewed And Are Negative: Yes Physical Exam - Summary Physical Exam Summary: The patient is well-nourished in no acute distress and in no acute pain. The skin is warm and dry and skin color reflects adequate perfusion. HEENT: The head is normocephalic and atraumatic. The pupils are equal and reactive. The conjunctivae are clear and without drainage. DMM. Neck is supple with full range of motion and non-tender. There are no carotid bruits. There is no neck vein distension. Respiratory: Chest is non-tender. Lungs are clear to auscultation and breath sounds are symmetrical and equal. Cardiovascular: Heart is regular rate and rhythm. Murmur: 2nd intercostal space. There is no peripheral edema and pulses are symmetrical and equal. Abdomen: The abdomen is soft. LUQ tenderness. Musculoskeletal: There is no back pain noted. Extremities are non-tender with full range of motion. Neurological: Patient is alert and oriented to person, place and time. The patient has symmetrical motor strength in all four extremities. Psychiatric: The patient has an appropriate affect and does not exhibit any anxiety or depression. Triage Information Reviewed: Yes Vital Signs On Initial Exam: Initial Vitals Temp Pulse Resp BP Pulse Ox 99.3 F 63 20 128/91 96 11/18/16 16:24 11/18/16 16:24 11/18/16 16:24 11/18/16 16:24 11/18/16 16:24 Vital Signs Reviewed: Yes - Remigio Coma Scale Coma Scale Total: 15 Diagnostics - Vital Signs Vital Signs Temp Pulse Resp BP Pulse Ox 11/18/16 16:30 67 128/77 98 11/18/16 16:29 64 97 11/18/16 16:28 124/74 11/18/16 16:24 99.3 F 63 20 128/91 96 - Laboratory Lab Statement: Any lab studies that have been ordered have been reviewed, and results considered in the medical decision making process. - CT ABD/PELVIS CT Interpretation Completed By: Radiologist - IMPRESSION: see EMR pending radiology reading. - EKG 1710 EKG Interpretation: NSR @ 60 bpm. LVH. Nml axis. No STEMI. Nonspecific ST changes. Re-Evaluation - Re-Evaluation First Eval Re-Evaluation Time: 17:50 Comment: Discussed case. Complex Multi-Symp Course/Dx Course Of Treatment: 66 y/o F presents with intermittent abd pain for the past 3 days. She reports vomiting , chills, decreased PO intake, and hot flashes, but denies fever, diarrhea, palpations, SOB, CP, blood in stool, or hematemesis. Pt received fluids, Morphine, Zofran, and Protonix in ED course. CT taken. Pt was signed out at shift change. Pending CT and lab - Diagnoses Differential Diagnoses/HQI/PQRI: Metabolic Abnormality, Other - sbo, colitis Provider Diagnoses: Abdominal pain, Dehydration Discharge - Discharge Plan Condition: Stable Disposition: OTHER Discharge Disposition Comment: Sign out to Dr. Salvador. Pending CT. The documentation as recorded by the April crawford Salem accurately reflects the service I personally performed and the decisions made by , Pawan Duarte MD.
[2016-11-18] MEDS ORDERED: KCL 10 MEQ/50 ML IVPREMIX* 10 MEQ/50 ML BAG IV ONE (19:38)
[2016-11-18] MEDS ORDERED: Iohexol 300* (CONTRAST) 10 ML SDV IV ONE (19:58)
[2016-11-18 20:04] LABS: Hematocrit 36 % (35-47); Hemoglobin 11.8 g/dl (12.0-16.0); Mean Corpuscular HGB Conc 33 g/dl (31-36); Mean Corpuscular Hemoglobin 31 pg (27-31); Mean Corpuscular Volume 95 fL (80-97); Mean Platelet Volume 9 um3 (7.4-10.4); Red Blood Count 3.79 10^6/ul (4.0-5.4); Red Cell Distribution Width 15 % (10.5-15); White Blood Count 10.9 10^3/ul (3.5-10.8)
[2016-11-18 20:11] LABS: ALT 12 U/L (7-52); AST 15 U/L (13-39); Albumin 3.5 g/dL (3.2-5.2); Alkaline Phosphatase 71 U/L (34-104); Amylase 32 U/L (29-103); BUN/Creatinine Ratio 10.1 (8-20); Blood Urea Nitrogen 9 mg/dL (6-24); C Reactive Protein 1.44 mg/L (< 5.00); CO2 Carbon Dioxide 26 mmol/L (22-32); Calcium 9.1 mg/dL (8.6-10.3); Chloride 93 mmol/L (101-111); EGFR African American 81.9 (>60); EGFR Non-African American 63.7 (>60); Globulin 2.7 g/dL (2-4); Glucose 111 mg/dL (70-100); Lipase < 10 U/L (11.0-82.0); Sodium 128 mmol/L (133-145); Total Protein 6.2 g/dL (6.4-8.9); Troponin I 0.02 ng/mL (<0.04)
[2016-11-18 20:12] LABS: Anion Gap 9 mmol/L (2-11); Potassium 2.7 mmol/L (3.5-5.0)
--- NOTE | 2016-11-18 20:36 | RAD ---
INDICATION: Abdominal pain COMPARISON: CT abdomen pelvis May 07, 2016 TECHNIQUE: Axial source images were obtained from the hemidiaphragms to the symphysis pubis following administration of oral and intravenous contrast. 64 mL Omnipaque 300 was utilized. Coronal and sagittal reconstructed images were acquired. Lung bases: The right lung base clear. There is pleural reactive change in the left lung base with mild parenchymal change and a partially loculated pleural effusion appearing unchanged. Liver: The liver is normal in size. There are no masses. There is no ductal dilatation. Gallbladder: There are no calcified gallstones. There is no evidence of wall thickening or pericholecystic fluid. Spleen: The spleen is normal in size. There are no masses. Pancreas: There is no focal pancreatic mass or ductal dilatation. Adrenal glands: There is no evidence of adrenal mass. Kidneys: The kidneys are normal in size and position. There are prompt nephrograms and there is prompt excretion bilaterally. There are no renal parenchymal masses. There is no evidence of nephrolithiasis. Adenopathy: There is no evidence of adenopathy by size criteria. Fluid collections: There are no free or localized fluid collections. Vessels:There are advanced atherosclerotic changes involving the aorta and iliac vessels. There is no focal aneurysm. The IVC appears normal. GI tract: Evaluation of the bowel is limited without oral contrast. There is no obstruction. The stomach and small bowel appear normal. The lower GI tract is remarkable for moderate retained stool with colonic redundancy. Pelvic organs: There is hysterectomy. There is no adnexal mass Bladder: There are no bladder masses. Abdominal and pelvic soft tissues: The extraperitoneal abdominal and pelvic soft tissues appear normal.. Osseous structures: There are no acute osseous findings. Other: None IMPRESSION: 1. Chronic left basilar abnormalities with pleural effusion. 2. Moderate retained stool with colonic redundancy. 3. Advanced atherosclerotic changes. 4. Hysterectomy.
[2016-11-18] MEDS ORDERED: Potassium Chlor TAB* 20 MEQ TAB.ER PO ONE (20:39)
[2016-11-18] MEDS ORDERED: Ondansetron ODT TAB* 4 MG PO ONE (20:58)
[2016-11-18 21:21] VITALS: BP 146/95
--- NOTE | 2016-11-19 02:14 | ED ---
I, Stephen Lea, scribed for Avani Salvador MD on 11/18/16 at 1920 . Progress - Progress Note Progress Note: Signout pt from Dr. Duarte. This is a 66yo female c/o N/V and intermittent LUQ pain for [address] reports. Pt noted with hypokalemia 2.7, will replace IV and po. - Results/Orders Results/Orders: CT ABD/PELV W: IMPRESSION: 1. Chronic left basilar abnormalities with pleural effusion. 2. Moderate retained stool with colonic redundancy. 3. Advanced atherosclerotic changes. 4. Hysterectomy. Re-Evaluation - Re-Evaluation First Eval Re-Evaluation Time: 19:10 Change: Improved Comment: Nausea is now better after taking Zofran. Pt still reports LUQ point tenderness upon palpation. Second Eval Re-Evaluation Time: 20:00 - states she is hungry, taken for CT Change: Unchanged Third Eval Re-Evaluation Time: 21:05 - tolerates po, wants to go home Change: Improved Course/Dx - Course Course Of Treatment: Reviewed medication lists and known allergies. Pt with LUQ abd pain and unremarkable labs and CT except for K+ 2.7. Potassium was replaced po and IV, and pt was DC'd home on KCL x 10 days. Pt advised of her results, agrees with DC, and will follow up with her PCP. - Diagnoses Provider Diagnoses: Abdominal pain, Dehydration, Blood pressure under poor control., Tobacco abuse disorder, Hypokalemia - Critical Care Time Critical Care Time: 30-74 min - 30 minutes The documentation as recorded by the noemiibVenu estrada Benjamin accurately reflects the service I personally performed and the decisions made by me, Avani Salvador MD.
== END 2016-11-18 21:20 | disposition home or self-care (01) ==
LOC: ED 16:19
DX: R10.9 Unspecified abdominal pain (principal); I10 Essential (primary) hypertension; E86.0 Dehydration; E87.6 Hypokalemia; F17.210 Nicotine dependence, cigarettes, uncomplicated
CPT/HCPCS: 36415; 74177; 80053; 82150; 83605; 83690; 84484; 85025; 86140; 93005; 96365; 96375; 99284; A9270-GY; J2405; J3480; Q9967

== ENCOUNTER 2017-02-07 14:53 | Inpatient (IN) | payer MEDICARE, BC ==
[2017-02-07] MEDS ORDERED: Albuterol/Ipratropium NEB.SOL* Albuterol 2.5 MG/Ipratropium 0.5 MG 3 ML INH ONE (15:26)
[2017-02-07] MEDS ORDERED: NS 0.9% 1000 ML* 500 ML IV ONE (15:27)
[2017-02-07] MEDS ORDERED: LORazepam INJ* 2 MG/ML 1 ML VIAL IV PUSH ONE (15:33)
--- NOTE | 2017-02-07 15:47 | RAD ---
Indication: Shortness of breath, chronic obstructive pulmonary disease. Comparison: November 18, 2016 CT abdomen. Technique: Upright AP 1520 hours Report: Elevated lung volumes and both diffuse mild prominence of the interstitial markings and patchy rarefaction of the mid to upper lung zone interstitial markings. Unchanged mild elevation of the LEFT hemidiaphragm. Small LEFT subpulmonic pleural effusion and proportional basilar atelectasis. No suspicious focal pulmonary lesion. Negative for cardiomegaly. Unremarkable central pulmonary vasculature accounting for leftward rotation. IMPRESSION: Grossly unchanged small subpulmonic LEFT pleural effusion and basilar atelectasis. Stigmata of chronic obstructive pulmonary disease.
[2017-02-07 15:51] LABS: Hematocrit 35 % (35-47); Hemoglobin 11.5 g/dl (12.0-16.0); Mean Corpuscular HGB Conc 33 g/dl (31-36); Mean Corpuscular Hemoglobin 30 pg (27-31); Mean Corpuscular Volume 90 fL (80-97); Mean Platelet Volume 8 um3 (7.4-10.4); Red Blood Count 3.86 10^6/ul (4.0-5.4); Red Cell Distribution Width 16 % (10.5-15); White Blood Count 11.3 10^3/ul (3.5-10.8)
[2017-02-07 16:00] LABS: BUN/Creatinine Ratio 8.1 (8-20); Calcium 9.9 mg/dL (8.6-10.3); EGFR African American 85.2 (>60); EGFR Non-African American 66.2 (>60); Globulin 3.3 g/dL (2-4); Potassium 3.1 mmol/L (3.5-5.0); Total Bilirubin 0.4 mg/dL (0.2-1.0); Total Protein 7.3 g/dL (6.4-8.9)
[2017-02-07 16:02] LABS: Troponin I 0.01 ng/mL (<0.04)
[2017-02-07] MEDS ORDERED: Iohexol 350* (CONTRAST) 500 ML MDV IV ONE (16:10)
[2017-02-07] MEDS ORDERED: Acetaminophen TAB* 325 MG PO PRN (16:37)
[2017-02-07] MEDS ORDERED: Albuterol 2.5 MG/3 ML NEB.SOL* (0.083%) INH PRN (16:37)
[2017-02-07] MEDS ORDERED: Ondansetron INJ* 2 MG/ML VIAL IV PRN (16:37)
[2017-02-07] MEDS ORDERED: NS 0.9% 1000 ML* 1,000 ML IV SCH (16:45)
[2017-02-07] MEDS: Albuterol/Ipratropium NEB.SOL* Albuterol 2.5 MG/Ipratropium 0.5 MG 3 ML INH SCH ×2 (16:49→19:10)
[2017-02-07] MEDS: predniSONE TAB* 20 MG PO SCH (16:56)
[2017-02-07] MEDS ORDERED: Potassium Chlor TAB* 20 MEQ TAB.ER PO ONE (16:58)
--- NOTE | 2017-02-07 17:32 | RAD ---
INDICATION: Shortness of breath, hypoxia. History of PE. LEFT lung carcinoma with upper lung resection in 2013. COMPARISON: Chest radiograph of the same date and October 18, 2016 CT. September 05, 2014 CT. TECHNIQUE: Multidetector CT images were obtained from the lung apices to the upper abdomen with 53 mL Omnipaque 350 IV contrast. Pulmonary angiogram protocol. Multiplanar reformation including with maximum intensity projection. REPORT: Postsurgical change of LEFT upper lobe resection with LEFT hemithorax volume loss. Unchanged small volume of LEFT pleural fluid. Mild prominence and upper lung zone rarefaction of interstitial markings. Reference image 31; unchanged 2 mm subpleural pulmonary nodule at the lateral basal segment of the RIGHT lower lobe compared with a CT from September 05, 2014 without concern. No suspicious focal pulmonary lesions or consolidation concerning for pneumonia. Negative for pneumothorax. Top normal 1 cm short axis LEFT paratracheal lymph node is grossly unchanged from the September 05, 2014 CT. Normal diameter thoracic aorta with mild atherosclerotic plaque. Negative for thoracic aortic dissection. Coronary artery calcifications. Negative for cardiomegaly or pericardial effusion. No filling defects are identified within the residual pulmonary arteries to the subsegmental level to indicate pulmonary embolism. Images through the upper abdomen are remarkable for unchanged prominence of the limbs of the adrenal glands compared with the 2015 exam most consistent with hyperplasia. Multilevel thoracic degenerative spondylosis with increased thoracic kyphosis. No thoracic compression fractures or suspicious focal osseous lesions evident. IMPRESSION: 1. No evidence for pulmonary embolism. 2. Postsurgical change of LEFT upper lobe resection. 3. Stigmata of chronic obstructive pulmonary disease and emphysema. 4. Negative for thoracic lymphadenopathy.
[2017-02-07] MEDS: Rivaroxaban TAB(*) 20 MG TAB PO SCH (18:11)
[2017-02-07] MEDS: Azithromycin IV(*) 500 MG in NS 0.9% 250 ML* 250 ML IVPB SCH (18:11)
[2017-02-07] MEDS: Mometasone/Formoter 200/5 MDI INH SCH (19:56)
[2017-02-07] MEDS ORDERED: QUEtiapine TAB* 100 MG PO SCH (21:00)
[2017-02-07] MEDS ORDERED: LORazepam INJ* 2 MG/ML 1 ML VIAL IV PRN (21:17)
[2017-02-07] MEDS: Omeprazole CAP* 20 MG PO SCH (21:26)
[2017-02-07] MEDS ORDERED: Heparin VIAL(*) 5000 UNITS/ML VIAL (FIVE THOUSAND) SUBCUT SCH (22:00)
[2017-02-07 22:27] LABS: BUN/Creatinine Ratio 12.6 (8-20); Calcium 8.6 mg/dL (8.6-10.3); EGFR African American 58.5 (>60); EGFR Non-African American 45.5 (>60); Potassium 3.8 mmol/L (3.5-5.0)
--- NOTE | 2017-02-08 00:12 | HP ---
CC: Guerrero Gtz NP * HISTORY AND PHYSICAL: DATE OF ADMISSION: 02/07/17 PRIMARY CARE PROVIDER: Guerrero Gtz NP ATTENDING PHYSICIAN WHILE IN THE HOSPITAL: Dr. Megan Garcia * (report dictated by Hector Vázquez NP). CHIEF COMPLAINT: Shortness of breath. HISTORY OF PRESENT ILLNESS: Ms. Glover is a 66-year-old female patient. She has a history of chronic hyponatremia, COPD, history of lung cancer, status post left upper lobe lobectomy. She has a PFO, history of hypertension, hyperlipidemia, hypothyroidism, chronic back pain, and history of opiate and benzo abuse. Recently was diagnosed in September 2016 with a PE, unsure if chronic or not. She was placed on Xarelto. She comes in to the ER today stating that today she woke up, was feeling okay, she had some nausea this morning, she took some Zofran that she had, she was feeling better, but then throughout the afternoon, she got progressively more and more shortness of breath. She turned up her oxygen, it did not help. She tried a nebulizer, it did not help. She said she has not been sick recently with the exception she had a sinus infection about a week ago. She finished antibiotics and has been off her steroids for about 1 week. There has been no reports of rhinorrhea, sore throat , congestion or cough, and she has had no recent sick contacts or fevers or chills and no vomiting or diarrhea. She came in to the ER today because her breathing was not getting any better. She tried her nebulizers. She was evaluated down here by Dr. Rico. There was concern because she required initially Vapotherm here, but after quick stabilization, she was liberated from this and she was starting to feel better; however, she was still somewhat short of breath and there was concern for COPD exacerbation. So, we were asked to evaluate for admission. PAST MEDICAL HISTORY: Significant for: 1. 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 2. COPD. 3. Lung CA. 4. PFO. 5. Hypertension. 6. Hyperlipidemia. 7. Hypothyroidism. 8. Chronic back pain. 9. History of opiate and benzo abuse. PAST SURGICAL HISTORY: 1. She has had a left upper lobe lobectomy. 2. Tonsillectomy. 3. Hysterectomy. HOME MEDICATIONS: This needs to be updated. This is from her recall, includes: 1. Xarelto 20 mg p.o. daily at 5 o'clock. She is on this for another 6 days. 2. Seroquel 200 mg at bedtime. 3. Flovent 1 puff inhaled b.i.d. 4. Cymbalta 60 mg daily. 5. Atrovent 0.5 mg inhaled q.i.d. as needed. 6. Albuterol 2.5 mg inhaled q.4 hours as needed. 7. Spiriva 1 capsule inhaled daily. 8. Prilosec 40 mg p.o. b.i.d. 9. Synthroid 175 mcg daily. 10. Atenolol 25 mg daily. 11. Amlodipine 5 mg p.o. q.a.m. 12. Ventolin 2 puffs inhaled every 4 hours as needed. ALLERGIES: ASPIRIN and LATEX. FAMILY HISTORY: Mother had a history of ulcerative colitis. Father had a history of heart attack. SOCIAL HISTORY: She is still smoking, she is about a pack a day. She has been smoking since the age of 18 for about 48 years. She does not drink alcohol. Her surrogate decision maker is her daughter, Elyssa. REVIEW OF SYSTEMS: There is no documented fever. No significant weight change. No double vision. No ear discharge. No rhinorrhea. No sore throat. No thyroid enlargement. Denied any chest pain. There is dyspnea on exertion. There is no abdominal pain. No nausea, no vomiting. No dysuria. No frequency. No seizure. No loss of consciousness. No pruritus and no skin ulcerations. Review of 14 systems completed, all others were negative. PHYSICAL EXAMINATION GENERAL: At this time, Ms. Glover is a 66-year-old female patient. She is chronically ill appearing. She is sitting in the ER stretcher. She does not appear to be in any acute respiratory distress at this point. VITAL SIGNS: Blood pressure 127/74, respirations 26, pulse was 91, she is initially on 5 L at 91%, then she went to 25 L of Vapotherm and now she is back down to 4 L and her O2 saturation is 98%, and her temperature was 98.2. HEENT: Head atraumatic, normocephalic. Eyes: EOMs are intact. Sclerae anicteric and not pale. Throat: Oral mucosa appears to be dry. No oropharyngeal erythema. NECK: Supple. LUNGS: She did have rhonchi in the upper lobe. She did have equal diaphragmatic expansion. HEART: Sounds S1, S2. Regular rate and rhythm. No murmurs, rubs, or gallops. ABDOMEN: Soft, flat, nontender. Bowel sounds present. EXTREMITIES: Pulses 2+ throughout. She had no peripheral edema. She is able to move all 4 extremities with 5/5 strength. NEUROLOGIC: The patient is awake, she is alert, she is oriented x3. No gross focal deficits. SKIN: Intact. LABORATORY DATA: The labs today reveal a WBC of 11.3, RBC of 3.86, hemoglobin 11.5, hematocrit 35, platelet count of 421. The PTT was 34. Sodium was 126 which is where she typically runs, her potassium is 3.1, the bicarb was 19, chloride 93, BUN 7, creatinine 0.6, glucose 108, lactic 1.8, calcium 9.9, total bilirubin 0.4, AST 14, ALT 11, alkaline phosphatase 72, troponins 0.01, albumin 4.0. She had a chest x-ray obtained today, which revealed grossly unchanged subpulmonic left pleural effusion and basilar atelectasis, significant amount of COPD. CTA is pending. EKG is pending. Old medical records were reviewed. ASSESSMENT AND PLAN: Ms. Glover is a 66-year-old female patient coming in to the ER today with complaints of shortness of breath. She was evaluated here in the ED. In the evaluation, there was concern for chronic obstructive pulmonary disease exacerbation because of increasing shortness of breath and increasing O2 requirement. She will be admitted under observation status for: 1. Chronic obstructive pulmonary disease exacerbation. At this point, a CTA is pending because she does have a history of PE. Otherwise I suspect this will be extremely unlikely that she has a new PE. She has been taking her Xarelto as prescribed. On exam, she does have rhonchi. My plan is to go ahead and put her on steroids, standing nebulizers, Dulera, and I am going to put her on azithromycin. For the time being, I am holding off Rocephin treatment. 2. Hyponatremia. Her sodium is 126. I am going to repeat her BMP later tonight. If we need to, I will send off urine sodium and urine osmolality and serum osmolality and we will repeat the BMP to follow this, but again it is most likely related to the polydipsia as it was in the past. 3. History of lung cancer. Follow with primary. 4. Patent foramen ovale. Again, follow with primary, not an active issue currently. 5. Hypertension. Continue meds as prescribed. 6. Hyperlipidemia. Continue meds as prescribed. 7. Hypothyroidism. Continue her meds as prescribed. 8. History of chronic back pain. P.r.n. Tylenol has been ordered. 9. History of depression and anxiety. Continue her meds as prescribed. This appears to be stable. 10. DVT prophylaxis. She is on Xarelto. 11. Fluids, electrolytes, and nutrition. She can have a regular diet. 12. Code status: She is a full code. TIME SPENT: Time spent on this admission was 60 minutes; greater than half the time was spent [id number] with the patient obtaining my history and physical, other half the time spent going over the plan of care with the patient and implementing plan of care. I did discuss the plan of care with my attending, Dr. aGrcia, she is in agreement. HECTOR VÁZQUEZ, MILTON [id number]/JEANNIE #: [id number] NICOLE
[2017-02-08] MEDS: Albuterol/Ipratropium NEB.SOL* Albuterol 2.5 MG/Ipratropium 0.5 MG 3 ML INH SCH ×5 (00:52→17:30)
[2017-02-08] MEDS: Levothyroxine TAB* 175 MCG TAB PO SCH (05:31)
[2017-02-08 06:06] LABS: BUN/Creatinine Ratio 18.3 (8-20); Calcium 8.3 mg/dL (8.6-10.3); EGFR African American 77.8 (>60); EGFR Non-African American 60.5 (>60); Potassium 4.1 mmol/L (3.5-5.0)
[2017-02-08 07:04] LABS: Hematocrit 29 % (35-47); Hemoglobin 9.5 g/dl (12.0-16.0); Mean Corpuscular HGB Conc 33 g/dl (31-36); Mean Corpuscular Hemoglobin 30 pg (27-31); Mean Corpuscular Volume 92 fL (80-97); Mean Platelet Volume 8 um3 (7.4-10.4); Red Blood Count 3.12 10^6/ul (4.0-5.4); Red Cell Distribution Width 17 % (10.5-15); White Blood Count 9.9 10^3/ul (3.5-10.8)
[2017-02-08] MEDS: LORazepam INJ* 2 MG/ML 1 ML VIAL IV PRN ×3 (07:42→14:23)
[2017-02-08] MEDS: Mometasone/Formoter 200/5 MDI INH SCH ×2 (08:18→20:37)
[2017-02-08] MEDS: amLODIPine TAB* 5 MG PO SCH (08:47)
[2017-02-08] MEDS: predniSONE TAB* 20 MG PO SCH (08:47)
[2017-02-08] MEDS: Atenolol TAB* 25 MG PO SCH (08:47)
[2017-02-08] MEDS: Omeprazole CAP* 20 MG PO SCH ×2 (08:47→21:21)
[2017-02-08] MEDS: DULoxetine DR CAP* 60 MG CAP.DR PO SCH (09:05)
[2017-02-08] MEDS ORDERED: Butalb/Acetamin/Caff TAB* 1 TAB PO ONE (09:32)
--- NOTE | 2017-02-08 10:21 | PN ---
Subjective Date of Service: 02/08/17 Interval History: Patient seen and examined at bedside. She reports feeling a little better this morning but is still requiring O2. She does not wear O2 at baseline but states she uses it only as needed. Denies fever/chills, CP, SOB. She reports feeling a bit anxious this morning and having a headache but thinks the Fioricet will help. She reports that she always has anxiety and pain issues when she's in the hospital. Family History: Unchanged from Admission Social History: Unchanged from Admission Past Medical History: Unchanged from Admission Objective Active Medications: Acetaminophen (Tylenol Tab*) 650 mg PO Q4H PRN PRN Reason: FEVER/PAIN Last Admin: 02/07/17 18:37 Dose: 650 mg Albuterol (Ventolin 2.5 Mg/3 Ml Neb.Tracey*) 2.5 mg INH Q2H PRN PRN Reason: SOB/WHEEZING Albuterol/Ipratropium (Duoneb (Albuterol 2.5 Mg/Ipratropium 0.5 Mg)) 1 neb INH Q4H [facility] Last Admin: 02/08/17 08:18 Dose: 1 neb Amlodipine Besylate (Norvasc Tab*) 5 mg PO QAM [facility] Last Admin: 02/08/17 08:47 Dose: 5 mg Atenolol (Tenormin Tab*) 25 mg PO QAM [facility] Last Admin: 02/08/17 08:47 Dose: 25 mg Duloxetine HCl (Cymbalta Cap*) 60 mg PO DAILY [facility] Last Admin: 02/08/17 09:05 Dose: 60 mg Sodium Chloride (Ns 0.9% 1000 Ml*) 1,000 mls @ 100 mls/hr IV PER RATE [facility] Last Admin: 02/07/17 18:11 Dose: 100 mls/hr Azithromycin 500 mg/ Sodium (Chloride) 250 mls @ 250 mls/hr IVPB Q24H [facility] Last Admin: 02/07/17 18:11 Dose: 250 mls/hr Levothyroxine Sodium (Synthroid Tab*) 175 mcg PO 0600 [facility] Last Admin: 02/08/17 05:31 Dose: 175 mcg Lorazepam (Ativan Inj*) 1 mg IV Q4H PRN PRN Reason: agitation/SOB Last Admin: 02/08/17 07:42 Dose: 1 mg Mometasone Furoate/Formoterol Fumar (Dulera 200/5 Mdi*) 2 puff INH BID [facility] Last Admin: 02/08/17 08:18 Dose: 2 puff Omeprazole (Prilosec Cap*) 40 mg PO BID [facility] Last Admin: 02/08/17 08:47 Dose: 40 mg Ondansetron HCl (Zofran Inj*) 4 mg IV Q6H PRN PRN Reason: NAUSEA Prednisone (Deltasone Tab*) 60 mg PO DAILY [facility] Last Admin: 02/08/17 08:47 Dose: 60 mg Quetiapine Fumarate (Seroquel Tab*) 200 mg PO BEDTIME [facility] Last Admin: 02/07/17 21:26 Dose: 200 mg Rivaroxaban (Xarelto (*)) 20 mg PO DAILY@1700 [facility] Last Admin: 02/07/17 18:11 Dose: 20 mg Vital Signs 02/07/17 02/07/17 02/07/17 17:18 17:22 17:30 Temperature Pulse Rate 108 107 106 Respiratory 21 18 26 Rate Blood Pressure (mmHg) O2 Sat by Pulse 99 100 Oximetry 02/07/17 02/07/17 02/07/17 18:14 19:16 20:19 Temperature 97.6 F 97.3 F Pulse Rate 116 93 112 Respiratory 21 18 26 Rate Blood Pressure 160/93 158/91 (mmHg) O2 Sat by Pulse 100 98 99 Oximetry 02/07/17 02/07/17 02/07/17 21:25 21:33 21:47 Temperature Pulse Rate Respiratory 24 24 20 Rate Blood Pressure (mmHg) O2 Sat by Pulse Oximetry 02/07/17 02/07/17 02/08/17 22:25 23:53 03:23 Temperature 98.1 F 97.8 F Pulse Rate 107 105 Respiratory 19 19 17 Rate Blood Pressure 101/57 141/79 (mmHg) O2 Sat by Pulse 95 98 Oximetry 02/08/17 02/08/17 02/08/17 05:43 07:27 07:42 Temperature 98.5 F Pulse Rate 120 Respiratory 16 24 24 Rate Blood Pressure 156/80 (mmHg) O2 Sat by Pulse 98 100 Oximetry 02/08/17 02/08/17 02/08/17 08:06 08:19 08:42 Temperature Pulse Rate 115 105 Respiratory 20 22 20 Rate Blood Pressure (mmHg) O2 Sat by Pulse 99 98 Oximetry 02/08/17 10:05 Temperature Pulse Rate Respiratory 20 Rate Blood Pressure (mmHg) O2 Sat by Pulse Oximetry Oxygen Devices in Use Now: Nasal Cannula Appearance: Female patient, with alopecia, somewhat restless, very talkative, in NAD Eyes: No Scleral Icterus Ears/Nose/Mouth/Throat: Clear Oropharnyx, Mucous Membranes Moist Neck: NL Appearance and Movements; NL JVP Respiratory: Symmetrical Chest Expansion and Respiratory Effort, Clear to Auscultation - coarse Cardiovascular: NL Sounds; No Murmurs; No JVD, RRR Abdominal: NL Sounds; No Tenderness; No Distention Extremities: No Edema Neurological: Alert and Oriented x 3, NL Muscle Strength and Tone Lines/Tubes/Other Access: Clean, Dry and Intact Peripheral IV Nutrition: Taking PO's Result Diagrams: 02/08/17 06:30 02/08/17 05:37 Microbiology and Other Data: Microbiology 02/07/17 17:12 Legionella Urinary Antigen - Final Urine Negative Legionella Streptococcus pneumoniae Ag Screen - Final Negative S. pneumo Antigen Assess/Plan/Problems-Billing Assessment: Ms. Glover is a 66 yo female with a PMH of chronic hyponatremia though to be 2 /2 polydipsia, COPD, lung ca, PFO, HTN, HLD, hypothyroidism, chronic back pain, and hx of opiate and benzo abuse who presented on 02/07 with concern for SOB secondary to COPD exacerbation. - Patient Problems (1) COPD (chronic obstructive pulmonary disease) Code(s): J44.9 - CHRONIC OBSTRUCTIVE PULMONARY DISEASE, UNSPECIFIED Comment: With exacerbation No significant rhonchi or wheezing noted on exam Continue prednisone, azithromycin, nebulizers, Dulera, Spiriva (2) Hyponatremia Code(s): E87.1 - HYPO-OSMOLALITY AND HYPONATREMIA Comment: Improved today Chronic at baseline Thought to be secondary to polydipsia Osmolality studies pending (3) Hypertension Code(s): I10 - ESSENTIAL (PRIMARY) HYPERTENSION Comment: Normotensive Continue home atenolol/amlodipine (4) Anxiety Code(s): F41.9 - ANXIETY DISORDER, UNSPECIFIED Comment: Not on anxiolytics at home Will continue prn lorazepam while in hospital Patient reportedly has hx of abuse and overdose. (5) Depression Code(s): F32.9 - MAJOR DEPRESSIVE DISORDER, SINGLE EPISODE, UNSPECIFIED Comment: Cont Cymbalta/Seroquel (6) GERD (gastroesophageal reflux disease) Code(s): K21.9 - GASTRO-ESOPHAGEAL REFLUX DISEASE WITHOUT ESOPHAGITIS Comment : Continue omeprazole. (7) Hypothyroidism Code(s): E03.9 - HYPOTHYROIDISM, UNSPECIFIED Comment: Continue levthyroxine at current home dose (8) DVT prophylaxis Comment: Rivaroxaban (9) Full code status Code(s): Z78.9 - OTHER SPECIFIED HEALTH STATUS Status and Disposition: OBV admit. D/c to home when medically stable.
[2017-02-08] MEDS: traMADol TAB* 50 MG PO PRN (13:23)
[2017-02-08] MEDS ORDERED: QUEtiapine TAB* 100 MG PO SCH (13:47)
[2017-02-08] MEDS ORDERED: Spiriva Inhaler DEVICE* 1 EACH DEVICE ONE (15:30)
--- NOTE | 2017-02-08 15:44 | PN ---
Hospitalist Progress Note Called to patient's bedside with concern for patient's behavior. Patient reported to be very agitated, using the call au every few minutes, approaching staff in the nurses' station, and drinking several cups of coffee. Pt's daughter came to see her and expressed concern for constantin, reporting to the nurse that her mother cycles between periods of laying in bed and hyperactivity. Patient was previously on steroids at home but it is unclear if she had similar effects to what is seen here. Discussed patient with psychiatry , who recommended encouraging sleep and increasing patient Seroquel. Psychiatry requested to see patient at request of family. Patient forgets my conversations with her and is very labile and tangential in though and speech. I also discussed patient with PCP Guerrero Gtz NP. Patient has a history significant for ETOH abuse, hydrocodone abuse, butalbital abuse (which may have contributed to previous hyponatremia), gabapentin/pregabalin abuse. PCP has been trying to keep patient restricted to tramadol and recently prescribed 14 tramadol on 01/22. She has a hx of polydipsia and reportedly drinks a large amount of coffee. Plan to check urine tox if able. Appreciate psych consult. I attempted to re- eval patient at 1500 but she was sleeping. Additional time spent is 55 minutes.
[2017-02-08] MEDS ORDERED: Albuterol HFA INHALER* 8 gm MDI INH PRN (17:15)
[2017-02-08] MEDS: Rivaroxaban TAB(*) 20 MG TAB PO SCH (17:18)
[2017-02-08] MEDS: Tiotropium CAP.INH* CAP.INH/18 MCG (USE ORDER SET !) INH SCH (17:23)
[2017-02-08] MEDS: Azithromycin IV(*) 500 MG in NS 0.9% 250 ML* 250 ML IVPB SCH (17:59)
[2017-02-08] MEDS ORDERED: Spiriva Inhaler DEVICE* 1 EACH DEVICE INH ONE (18:00)
[2017-02-08 18:40] LABS: Benzodiazepine Urine Screen None Detected (None Detect)
[2017-02-08] MEDS ORDERED: HYDROcodone/ACETAMIN 5-325 MG* 1 TAB PO ONE (20:45)
[2017-02-09] MEDS: Levothyroxine TAB* 175 MCG TAB PO SCH (05:53)
[2017-02-09 08:14] VITALS: BP 132/72
[2017-02-09] MEDS: DULoxetine DR CAP* 60 MG CAP.DR PO SCH (08:30)
[2017-02-09] MEDS: amLODIPine TAB* 5 MG PO SCH (08:31)
[2017-02-09] MEDS: Omeprazole CAP* 20 MG PO SCH (08:31)
[2017-02-09] MEDS: traMADol TAB* 50 MG PO PRN (08:31)
[2017-02-09] MEDS: Atenolol TAB* 25 MG PO SCH (08:31)
[2017-02-09] MEDS: Tiotropium CAP.INH* CAP.INH/18 MCG (USE ORDER SET !) INH SCH (08:58)
[2017-02-09] MEDS: Mometasone/Formoter 200/5 MDI INH SCH (08:58)
--- NOTE | 2017-02-09 09:21 | PN ---
Subjective Date of Service: 02/09/17 Family History: Unchanged from Admission Social History: Unchanged from Admission Past Medical History: Unchanged from Admission Objective Active Medications: Acetaminophen (Tylenol Tab*) 650 mg PO Q4H PRN PRN Reason: FEVER/PAIN Last Admin: 02/07/17 18:37 Dose: 650 mg Albuterol (Ventolin Hfa Inhaler*) 2 puff INH Q4H PRN PRN Reason: SOB/WHEEZING Amlodipine Besylate (Norvasc Tab*) 5 mg PO QAM [facility] Last Admin: 02/09/17 08:31 Dose: 5 mg Atenolol (Tenormin Tab*) 25 mg PO QAM [facility] Last Admin: 02/09/17 08:31 Dose: 25 mg Duloxetine HCl (Cymbalta Cap*) 60 mg PO DAILY [facility] Last Admin: 02/09/17 08:30 Dose: 60 mg Sodium Chloride (Ns 0.9% 1000 Ml*) 1,000 mls @ 100 mls/hr IV PER RATE [facility] Last Admin: 02/07/17 18:11 Dose: 100 mls/hr Azithromycin 500 mg/ Sodium (Chloride) 250 mls @ 250 mls/hr IVPB Q24H [facility] Last Admin: 02/08/17 17:59 Dose: 250 mls/hr Levothyroxine Sodium (Synthroid Tab*) 175 mcg PO 0600 [facility] Last Admin: 02/09/17 05:53 Dose: 175 mcg Lorazepam (Ativan Inj*) 1 mg IV Q4H PRN PRN Reason: agitation/SOB Last Admin: 02/08/17 14:23 Dose: 1 mg Mometasone Furoate/Formoterol Fumar (Dulera 200/5 Mdi*) 2 puff INH BID [facility] Last Admin: 02/09/17 08:58 Dose: 2 puff Omeprazole (Prilosec Cap*) 40 mg PO BID [facility] Last Admin: 02/09/17 08:31 Dose: 40 mg Ondansetron HCl (Zofran Inj*) 4 mg IV Q6H PRN PRN Reason: NAUSEA Quetiapine Fumarate (Seroquel Tab*) 300 mg PO BEDTIME [facility] Last Admin: 02/08/17 21:23 Dose: 300 mg Rivaroxaban (Xarelto (*)) 20 mg PO DAILY@1700 [facility] Last Admin: 02/08/17 17:18 Dose: 20 mg Tiotropium Husser (Spiriva Cap.Inh*) 1 cap INH DAILY [facility] Last Admin: 02/09/17 08:58 Dose: 1 cap Tramadol HCl (Ultram*) 50 mg PO Q8H PRN PRN Reason: PAIN - BREAKTHROUGH Last Admin: 02/09/17 08:31 Dose: 50 mg Vital Signs 02/08/17 02/08/17 02/08/17 17:14 17:26 19:13 Temperature 97.3 F Pulse Rate 86 101 Respiratory 20 20 Rate Blood Pressure 117/66 (mmHg) O2 Sat by Pulse 97 97 97 Oximetry 02/08/17 02/08/17 02/08/17 21:22 22:00 23:22 Temperature Pulse Rate Respiratory 18 18 16 Rate Blood Pressure (mmHg) O2 Sat by Pulse Oximetry 02/08/17 02/09/17 02/09/17 23:55 04:11 07:20 Temperature 97.3 F 97.5 F 98.1 F Pulse Rate 86 80 74 Respiratory 16 16 16 Rate Blood Pressure 105/56 119/68 132/72 (mmHg) O2 Sat by Pulse 96 98 99 Oximetry 02/09/17 08:31 Temperature Pulse Rate Respiratory 18 Rate Blood Pressure (mmHg) O2 Sat by Pulse Oximetry Oxygen Devices in Use Now: Nasal Cannula Result Diagrams: 02/08/17 06:30 02/08/17 05:37 Microbiology and Other Data: Microbiology 02/07/17 17:12 Legionella Urinary Antigen - Final Urine Negative Legionella Streptococcus pneumoniae Ag Screen - Final Negative S. pneumo Antigen Assess/Plan/Problems-Billing Assessment: Ms. Glover is a 66 yo female with a PMH of chronic hyponatremia though to be 2 /2 polydipsia, COPD, lung ca, PFO, HTN, HLD, hypothyroidism, chronic back pain, and hx of opiate and benzo abuse who presented on 02/07 with concern for SOB secondary to COPD exacerbation. - Patient Problems (1) COPD (chronic obstructive pulmonary disease) Code(s): J44.9 - CHRONIC OBSTRUCTIVE PULMONARY DISEASE, UNSPECIFIED Comment: With exacerbation No significant rhonchi or wheezing noted on exam Continue prednisone, azithromycin, nebulizers, Dulera, Spiriva (2) Hyponatremia Code(s): E87.1 - HYPO-OSMOLALITY AND HYPONATREMIA Comment: Improved today Chronic at baseline Thought to be secondary to polydipsia Osmolality studies pending (3) Hypertension Code(s): I10 - ESSENTIAL (PRIMARY) HYPERTENSION Comment: Normotensive Continue home atenolol/amlodipine (4) Anxiety Code(s): F41.9 - ANXIETY DISORDER, UNSPECIFIED Comment: Not on anxiolytics at home Will continue prn lorazepam while in hospital Patient reportedly has hx of abuse and overdose. (5) Depression Code(s): F32.9 - MAJOR DEPRESSIVE DISORDER, SINGLE EPISODE, UNSPECIFIED Comment: Cont Cymbalta/Seroquel (6) GERD (gastroesophageal reflux disease) Code(s): K21.9 - GASTRO-ESOPHAGEAL REFLUX DISEASE WITHOUT ESOPHAGITIS Comment : Continue omeprazole. (7) Hypothyroidism Code(s): E03.9 - HYPOTHYROIDISM, UNSPECIFIED Comment: Continue levthyroxine at current home dose (8) DVT prophylaxis Comment: Rivaroxaban (9) Full code status Code(s): Z78.9 - OTHER SPECIFIED HEALTH STATUS Status and Disposition: OBV admit. D/c to home when medically stable.
--- NOTE | 2017-02-10 02:50 | DS ---
CC: Guerrero Gtz NP * MEDICINE DISCHARGE SUMMARY: DATE OF ADMISSION: 02/07/17 DATE OF DISCHARGE: 02/09/17 PRIMARY CARE PROVIDER: Guerrero Gtz NP PROVIDER: Emerson Odom NP ATTENDING PHYSICIAN: Dr. Kate Hubbard * (as dictated by Emerson Odom NP). PRIMARY DISCHARGE DIAGNOSES: 1. Chronic obstructive pulmonary disease with exacerbation. 2. Hyponatremia. SECONDARY DISCHARGE DIAGNOSES: 1. History of lung cancer. 2. Hypertension. 3. Hyperlipidemia. 4. Hypothyroidism. 5. Chronic back pain. 6. History of opiate and benzo abuse. 7. History of patent foramen ovale. MEDICATIONS AT DISCHARGE: 1. Amlodipine 5 mg q.a.m. 2. Levothyroxine 175 mcg daily. 3. Atenolol 25 mg q.a.m. 4. Spiriva 1 capsule inhaled daily. 5. Omeprazole 40 mg b.i.d. 6. Albuterol 2.5 mg inhaled q.4 hours p.r.n. 7. Atrovent 0.5 mg inhaled four times a day p.r.n. 8. Duloxetine DR 60 mg daily. 9. Flovent 1 puff inhaled b.i.d. 10. Seroquel 200 mg at bedtime. 11. Albuterol inhaler 2 puffs inhaled q.4 hours p.r.n. 12. Rivaroxaban 20 mg daily. New medications at discharge: 1. Azithromycin 250 mg daily x3 additional days. 2. [place] 5/325 one tab q.12 hours p.r.n. severe breakthrough pain, dispensed 6. Note: The patient reports significant back pain from recent fall that is preventing her from sleeping and contributing to her overall mental state. We did discuss her history of past narcotic abuse and the patient states that she understands the necessary use of the medication. I discussed with her that any further pain issues will need to be discussed with primary care provider and we agreed to a small dose of [place] to help the patient sleep at night. She has been advised not to take this medication with tramadol. I did check the patient against I-STOP as she has last received prescription medication from her primary care provider on 01/22/17 for tramadol with a 7-day supply. HOSPITAL COURSE OF STAY: For full details, please refer to the full medical record in the H and P provided by Hector Vázquez NP, on admission and in summary , Ms. Glover is a 66-year-old female with a medical history as previously stated, who presented to the hospital with concern for shortness of breath. The patient was not able to control her symptoms with her p.r.n. oxygen, nebulizers and came into the ER. She was started on Vapotherm in the emergency room, but then was liberated from this and was able to be maintained on nasal cannula. On 02/08/17, the patient received a dose of prednisone and was noted to have significant hyperactivity, which involved the patient pacing in and outside of her room calling the nurses on the au every few minutes, approaching the staff in the nursing station, and drinking a significant amount of coffee. This was thought to be secondary to steroid-induced constantin, although the patient states that she is not aware of symptoms like this previously. The patient's daughter did come in and request a Psychiatry consult, which was requested from our psychiatry team. In the interim, they suggested encouraging the patient to sleep and perhaps increasing her Seroquel. The patient was able to rest that afternoon and obtain good sleep overnight and the following morning was noted to be much more calm and appropriate. She reports having gotten good sleep previous evening. On 02/09/17, the patient is off her nasal cannula and is satting at 98% on room air, is able to speak in full sentences. Her thinking is more organized, and she is able to fully manage the information and discuss with me her concerns. The patient does state that she does have periods at home where she does become sad and depressed. This is secondary to losing her and her son in the recent year. She states that she was seeing an outpatient therapist, but was told that they can no longer help her and she was discharged from their service. She has requested to get some help obtaining a new therapist, which our social work team did assist her with. The patient declined a Psychiatry consult here in the hospital and has stated multiple times that she has no desire to harm herself or others and recognizes that her sadness is secondary to loss and just feeling lonely at home. She does have friends that she can call in for support. She will take the information from the social work team to obtain a new therapist that she can follow up with as an outpatient. This was discussed with the patient's daughter , Elyssa. At this time, the patient is appropriately managing the information and has capacity to make this decision. The patient did also complain of back pain upon admission stating that she had a recent fall and her pain is preventing her from sleeping. She also has a history of chronic back pain. She did receive [place] overnight from the medical numerical control operator with good effect and she states this has what helped her to sleep. I did express my concern for her history of opiate and benzo abuse and she states that she understands how to appropriately take medications and agrees to do so. I did explain to her that I am only going to provide her with a few days of medications and that she should follow up with her PCP for further concerns of pain. She verbalized understanding. In regards to her hyponatremia , which is chronic, the patient did improve with her sodium improving from 126 to 131. In regards to her COPD exacerbation, again the patient is now on room air. She is no longer requiring oxygen except as needed as she uses at home. Also, she has nebulizer, which she wants to continue to use. At this point in time, I will continue her on her home inhalers and continue her on azithromycin to complete a 5-day course of treatment. She is to follow up with her PCP. ASSESSMENT AT THE TIME OF DISCHARGE: HEENT: Head is atraumatic and normocephalic. The patient had alopecia. Extraocular movements are intact. Pupils are equal. Oral mucosa appears moist. Neck is supple. Cardiac: S1, S2. Heart sounds, regular rate and rhythm. Lungs are clear to auscultation, but diminished. No expiratory wheezing noted. No rhonchi noted. Abdomen: Soft, flat, and nontender. Bowel sounds are present times all 4 quadrants. Extremities: No peripheral edema noted. The patient has 2+ distal pulses. Neuro: She is awake. She is alert and oriented x4. She is able to express her needs and concern, speech is more focused. No focal deficit is noted. Cranial nerves II through XII are grossly intact. OUTPATIENT FOLLOWUP: The patient needs to follow up with her PCP for further pain issues. She is also to follow up for resolution of her COPD exacerbation. DIET: Heart-healthy diet. The patient is encouraged to drink plenty of fluids such as water and she is to avoid excessive caffeine. ACTIVITY: As tolerated. CONDITION: Improved, stable. DISPOSITION: To home. TIME SPENT: Time spent on this discharge was approximately 45 minutes. Again, this is only a brief summary of the patient's hospital course of stay. For full details, please refer to the full medical record. If you have any further questions or need further assistance, please feel free to contact me at . EMERSON ODOM NP [id number]/[facility] #: [id number] NICOLE
== END 2017-02-09 11:15 | disposition home or self-care (01) | DRG 191 ==
LOC: ED 14:53 → MED 16:34 → OBSVTOIN 02-08 15:49
PROVIDERS: ADMIT Hospitalist; ATTEND Internal Medicine
DX: J44.1 Chronic obstructive pulmonary disease with (acute) exacerbation (principal); E87.1 Hypo-osmolality and hyponatremia; I10 Essential (primary) hypertension; Q21.1 Atrial septal defect; E03.9 Hypothyroidism, unspecified; M54.9 Dorsalgia, unspecified; F17.210 Nicotine dependence, cigarettes, uncomplicated; F32.9 Major depressive disorder, single episode, unspecified; F41.9 Anxiety disorder, unspecified; K21.9 Gastro-esophageal reflux disease without esophagitis; G89.29 Other chronic pain; Z85.118 Personal history of other malignant neoplasm of bronchus and lung; Z86.711 Personal history of pulmonary embolism; Z79.01 Long term (current) use of anticoagulants; Z90.2 Acquired absence of lung [part of]; Z88.6 Allergy status to analgesic agent; Z91.040 Latex allergy status
CPT/HCPCS: 36415; 71010; 71275; 80048; 80053; 80307; 83605; 83930; 83935; 84300; 84484; 85025; 85610; 85730; 87040; 87899; 93005; 94640; 94760; 99406; A9270-GY; G8978-GP-CI; G8979-GP-CI; G8980-GP-CI; J0456; J2060; J7512; Q9967

== ENCOUNTER 2017-02-22 13:19 | Observation (INO) | payer MEDICARE, BC ==
[2017-02-22] MEDS ORDERED: NS 0.9% 1000 ML* 1,000 ML IV ONE ×2 (13:51→18:37)
--- NOTE | 2017-02-22 14:12 | RAD ---
Indication: Left upper lobe resection with shortness of breath. 2 views of the chest are reviewed and compared to previous exam dated February 07, 2017. Postoperative changes are noted in the left hemithorax. Right lung field is clear. No alveolar consolidation is noted. Heart is at the upper limits of normal in size. IMPRESSION: Postoperative changes of the left upper lobe with no evidence of active cardiopulmonary disease.
[2017-02-22 14:49] LABS: Hematocrit 32 % (35-47); Hemoglobin 10.5 g/dl (12.0-16.0); Mean Corpuscular HGB Conc 33 g/dl (31-36); Mean Corpuscular Hemoglobin 30 pg (27-31); Mean Corpuscular Volume 91 fL (80-97); Mean Platelet Volume 8 um3 (7.4-10.4); Red Blood Count 3.52 10^6/ul (4.0-5.4); Red Cell Distribution Width 16 % (10.5-15); White Blood Count 11.2 10^3/ul (3.5-10.8)
[2017-02-22 15:01] LABS: ALT 11 U/L (7-52); Albumin 3.4 g/dL (3.2-5.2); Alkaline Phosphatase 72 U/L (34-104); BUN/Creatinine Ratio 12.4 (8-20); Blood Urea Nitrogen 15 mg/dL (6-24); C Reactive Protein 2.92 mg/L (< 5.00); CO2 Carbon Dioxide 22 mmol/L (22-32); Calcium 8.9 mg/dL (8.6-10.3); Chloride 91 mmol/L (101-111); EGFR African American 57.4 (>60); EGFR Non-African American 44.7 (>60); Globulin 2.8 g/dL (2-4); Glucose 72 mg/dL (70-100); Lipase < 10 U/L (11.0-82.0); Sodium 122 mmol/L (133-145); Total Protein 6.2 g/dL (6.4-8.9)
[2017-02-22 15:26] LABS: AST 16 U/L (13-39); Anion Gap 9 mmol/L (2-11); Potassium 3.5 mmol/L (3.5-5.0)
[2017-02-22] MEDS ORDERED: Acetaminophen TAB* 325 MG PO ONE (16:26)
[2017-02-22] MEDS ORDERED: HYDROcodone/ACETAMIN 5-325 MG* 1 TAB PO ONE (17:35)
[2017-02-22] MEDS ORDERED: LORazepam TAB(*) 1 MG PO ONE (18:36)
[2017-02-22] MEDS ORDERED: Ondansetron INJ* 2 MG/ML VIAL IV PRN (18:36)
[2017-02-22] MEDS ORDERED: Albuterol 2.5 MG/3 ML NEB.SOL* (0.083%) INH PRN ×2 (18:38→18:51)
[2017-02-22] MEDS ORDERED: Acetaminophen TAB* 325 MG PO PRN (18:38)
[2017-02-22] MEDS ORDERED: LORazepam TAB(*) 0.5 MG ONE (18:42)
[2017-02-22] MEDS ORDERED: Ondansetron INJ* 2 MG/ML VIAL ONE (18:43)
[2017-02-22] MEDS ORDERED: NS 0.9% 1000 ML* 1,000 ML IV SCH ×2 (18:45→22:30)
[2017-02-22 18:49] LABS: Urine Bacteria Absent (Absent); Urine Bilirubin Negative (Negative); Urine Glucose Negative (Negative); Urine Nitrite Negative (Negative)
[2017-02-22] MEDS ORDERED: Ipratropium 0.5MG/2.5ML NEB* 0.5 MG/2.5 ML NEB.SOLN INH PRN (18:51)
[2017-02-22] MEDS ORDERED: Albuterol HFA INHALER* 8 gm MDI INH PRN (18:51)
[2017-02-22] MEDS ORDERED: Enoxaparin(*) 30 MG/0.3 ML SYR SUBCUT SCH (20:00)
[2017-02-22] MEDS: Omeprazole CAP* 20 MG PO SCH (20:09)
[2017-02-22 20:59] LABS: BUN/Creatinine Ratio 12.8 (8-20); Calcium 8.1 mg/dL (8.6-10.3); EGFR African American 59.7 (>60); EGFR Non-African American 46.4 (>60); Potassium 3.5 mmol/L (3.5-5.0)
[2017-02-22] MEDS ORDERED: QUEtiapine TAB* 100 MG PO SCH (21:00)
--- NOTE | 2017-02-23 03:22 | HP ---
Amended report to enter cosigning doctor. HISTORY AND PHYSICAL: DATE OF ADMISSION: 02/22/17 PROVIDER: Dr. Brannon* (Alexx Tran NP, providing dictation). PRIMARY CARE PROVIDER: Guerrero Gtz NP CHIEF COMPLAINT: Beginning Wednesday episodes of vomiting, and diarrhea until today. She has had no further vomiting, but still has nausea and the diarrhea continues. HISTORY OF PRESENT ILLNESS: Ms. Glover is well known to [facility]. She is a 66-year-old female patient, appearing ill. States that she did not eat anything unusual last Wednesday. Has been taking her zofran at home with little relief of nausea. Denies blood her mucous in her stool. Her sodium level was found to be 122 & therefore we were asked to consult for admission. We found her sodium level is 122. This is actually higher then previous sodium levels that we have obtained from her frequent admissions. She will be admitted with hyponatremia, diarrhea, and nausea. 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 PAST SURGICAL HISTORY: She has had a left upper lobe lobectomy related to cancer, tonsillectomy, and hysterectomy. MEDICATIONS: Her home medications that she could remember: 1. Albuterol nebulizer 2.5. 2. Cymbalta 60 mg daily. 3. Atenolol 25 mg daily. 4. Amlodipine 5 mg daily. 5. Spiriva 1 cap inhalation daily. 6. Seroquel 200 mg h.s. 7. Prilosec 40 mg p.o. b.i.d. 8. Synthroid 175 mcg p.o. daily. 9. Atrovent four times a day p.r.n. 10. Hydrocodone/acetaminophen 5/325 one tab p.o. q.12 hours, maximum daily dose of 2. 11. Flovent 1 puff b.i.d. ALLERGIES: She is allergic to ASPIRIN and LATEX. FAMILY HISTORY: Mother had a history of ulcerative colitis. Father had a history of heart attack. SOCIAL HISTORY: She continues to smoke, states 20 packs in a month, so little bit less than a pack a day. She has been smoking since the age of 18. Had quit a few years back and then became and returned to smoking. She does not drink alcohol. Her surrogate decision maker is her daughter, Elyssa Glover. REVIEW OF SYSTEMS: She has not had any unexplained weight loss. Denies night sweats or any unexplained falls. She has had no visual changes. No complaints of sinus pain. Denies chest pain, shortness of breath of unusualness to her, or loss of consciousness. Denies cough. Does have chronic wheezing. GI: As stated in the HPI, she has had nausea and vomiting since Wednesday. No blood or mucus in her stool. Urinary: No symptoms. She does take hydrocodone twice a day for pain, arthritic. Neuro: She is alert and oriented, very pleasant. Moves all extremities easily. Endocrine: Has a history of chronic hypothyroidism and hyponatremia. No complaints of excessive bleeding. Has had a recent history of PE. PHYSICAL EXAMINATION GENERAL: At this time, Ms. Glover is a thin 66-year-old female patient, appears in no acute distress. Laughing at her situation. Recognizes many staff members. She is chronically ill appearing. VITAL SIGNS: In the ER, heart rate 113, blood pressure 124/74, respiratory rate 18, O2 sat 94%, temperature 100.1. HEENT: Head atraumatic, normocephalic. Sclerae are anicteric and not pale. Mucous membranes moist. NECK: Supple. LUNGS: She had bilateral wheezes. HEART: Sounds S1, S2. Regular rate and rhythm. No murmurs, rubs, or gallops. ABDOMEN: Soft, flat. Bowel sounds are present. Tender to palpation. Positive bowel sounds. EXTREMITIES: Pulses 2+ throughout. No peripheral edema, able to move all 4 extremities with 5/5 strength. The patient is awake, alert, oriented x3. No gross focal deficits. SKIN: Intact. DIAGNOSTIC STUDIES/LAB DATA: White count 11.2, H and H 10.5 and 32, platelets are 367. Chemistry: Her sodium is 122, potassium 3.5, chloride 91, carbon dioxide 22, BUN and creatinine 15 and 1.21, glucose is 72, calcium is 8.9. She has had chest x-ray while she was in the emergency room, impression: Postoperative change in the left upper lobe and no evidence of acute cardiopulmonary disease. ASSESSMENT AND PLAN: Ms. Glover will be admitted from the emergency room with complaints of diarrhea and vomiting for several days. We will also be treating her hyponatremia, which is a chronic situation for her. 1. Hyponatremia. Previously, this has resolved with IV fluids. Her heart rate is still 110. So, I have ordered another liter of normal saline and then IV fluid at 125. We will recheck her sodium, BMP panel at 9 p.m. 2. Diarrhea. Again, we are providing IV fluid. I have sent stool cultures. Zofran is ordered for nausea. 3. History of lung cancer. Follow with primary. 4. Hypertension. Continue amlidopine as prescribed. 5. Hyperlipidemia. Continue meds as prescribed. (patient unable to recall name ) 6. Hypothyroidism. Continue Synthroid as prescribed. 7. History of chronic back pain. Continue her hydrocodone as prescribed. 8. History of depression and anxiety. Continue Cymbalta as prescribed. In addition, she will be getting Ativan 0.5 mg for her smoking withdrawal. She stated that she was very anxious in the emergency room. She can have 0.5 Ativan q.12 hours p.r.n. 9. Smoker: Counseled patient regarding smoking cessation. Pt states she quit prior to her Husbands unexpected . Restarted at that time & feels that is her only comfort. 10. DVT prophylaxis. She will have SCDs on and she is receiving Lovenox 30 mg daily. 11. Fluids, electrolytes, and nutrition. She can have a regular diet if it is tolerated and she is having IV fluid normal saline. 12. Code status. She is a full code. Her daughter is her surrogate decision maker. TIME SPENT: On this admission was 60 minutes, greater than half the time was spent [id number] with the patient, obtaining my history and physical, other half the time spent going over the plan with the patient and implementing plan of care. I did discuss the plan with my attending, Dr. Brannon, she is in agreement. ALEXX TRAN, PROGRAM SERVICES ASSISTANT [id number] #: [id number] [facility] CENTERMadyson
[2017-02-23] MEDS: HYDROcodone/ACETAMIN 5-325 MG* 1 TAB PO PRN ×2 (04:49→17:06)
[2017-02-23 05:31] LABS: Hematocrit 28 % (35-47); Hemoglobin 9.5 g/dl (12.0-16.0); Mean Corpuscular HGB Conc 34 g/dl (31-36); Mean Corpuscular Hemoglobin 31 pg (27-31); Mean Corpuscular Volume 91 fL (80-97); Mean Platelet Volume 8 um3 (7.4-10.4); Red Cell Distribution Width 16 % (10.5-15); White Blood Count 7.6 10^3/ul (3.5-10.8)
[2017-02-23 05:45] LABS: BUN/Creatinine Ratio 12.9 (8-20); Calcium 8.1 mg/dL (8.6-10.3); EGFR African American 86.3 (>60); EGFR Non-African American 67.1 (>60)
[2017-02-23] MEDS ORDERED: Levothyroxine TAB* 175 MCG TAB PO SCH (06:00)
--- NOTE | 2017-02-23 07:33 | ED ---
Ayleen Winkler Alfonso, scribed for Jonathan Cross MD on 02/22/17 at 1341 . GI/ HPI - HPI Summary HPI Summary: This patient is a 66 year old F BIBA to [facility] with a chief complaint of N/V/D since 4 days ago. The patient rates the pain 0/10 in severity. Symptoms aggravated by nothing. Symptoms alleviated by nothing. Patient reports fever, chills, and abdominal cramping. Patient denies blood in the stools. She denies change in diet and recent sick contacts. She reports abx use 3 weeks ago. PMHx includes COPD. - History of Current Complaint Chief Complaint: EDNauseaVomitDiarrh Time Seen by Provider: 02/22/17 13:37 Stated Complaint: GENERAL ILLNESS Hx Obtained From: Patient Onset/Duration: Started Days Ago - 4, Still Present Timing: Constant Current Severity: Mild Pain Intensity: 0 Pain Characteristics: Cramping Associated Signs and Symptoms: Positive: Other: - fever, chills, and abdominal cramping. Patient denies blood in the stools Aggravating Factor(s): Nothing Alleviating Factor(s): Nothing - Additional Pertinent History Primary Care Physician: [id number] - Allergy/Home Medications Allergies/Adverse Reactions: Allergies Allergy/AdvReac Type Severity Reaction Status Date / Time Aspirin Allergy Anaphylatic Verified 08/24/16 00:52 Shock Latex AdvReac Mild Rash Verified 08/24/16 00:52 PMH/Surg Hx/FS Hx/Imm Hx Endocrine/Hematology History: Reports: Hx Thyroid Disease - hypothyroid, Other Endocrine/Hematological Disorders - Benign goiter Denies: Hx Bone Marrow Disease, Hx Diabetes, Hx Systemic Lupus Erythematosus Cardiovascular History: Reports: Hx Hypercholesterolemia - was high before cancer,now off meds., Hx Hypertension, Other Cardiovascular Problems/Disorders - patent foramen ovale; Murmur Denies: Hx Congestive Heart Failure, Hx Pacemaker/ICD Respiratory History: Reports: Hx Asthma, Hx Chronic Obstructive Pulmonary Disease (COPD), Hx Lung Cancer - Left upper lobectomy, Hx Pneumonia, Other Respiratory Problems/Disorders - lung cancer, LOBECTOMY 09/11/11 GI History: Reports: Hx Gastroesophageal Reflux Disease, Hx Hiatal Hernia, Other GI Disorders - hiatal hernia, colitis. 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, Hx Osteoporosis - Possible, Hx Scoliosis, Other Musculoskeletal History - scoliosis Denies: Hx Rheumatoid Arthritis Sensory History: Reports: Hx Cataracts - PATIENT STATES BEGINING OF CATARACTS LEFT EYE, Hx Contacts or Glasses, Hx Hearing Problem - right Denies: Hx Hearing Aid Opthamlomology History: Reports: Hx Cataracts - PATIENT STATES BEGINING OF CATARACTS LEFT EYE, Hx Contacts or Glasses Neurological History: Reports: Hx Headaches - frequent h/a's, Hx Migraine - Rare post menopause Psychiatric History: Reports: Hx Anxiety, Hx Depression, Hx Community Mental Health Tx, Hx Substance Abuse - opiods Denies: Hx Panic Disorder, Hx Inpatient Treatment - Cancer History Cancer Type, Location and Year: LUNG CA, DIAGNOSED July 2012 Hx Chemotherapy: Yes Hx Radiation Therapy: No Hx Palliative Cancer Treatment: No - Surgical History Surgery Procedure, Year, and Place: LEFT UPPER LUNG REMOVED 09/2012, HYSTERECTOMY , tonsillectomy Hx Anesthesia Reactions: No - Immunization History Date of Tetanus Vaccine: UTD Date of Influenza Vaccine: 05/01/16 Infectious Disease History: No Infectious Disease History: Denies: Hx of Known/Suspected MRSA, Traveled Outside the [place] in Last 30 Days - Family History Known Family History: Positive: Cardiac Disease - Sudden cardiac arrest (father) , Other - son -- glioblastoma. UC mother. Fhx of colitis. - Social History Alcohol Use: None Hx Substance Use: No Substance Use Type: Reports: None Substance Use Comment - Amount & Last Used: opiates Hx Tobacco Use: Yes Smoking Status (MU): Heavy Every Day Tobacco Smoker Type: Cigarettes Amount Used/How Often: 1/2 pack a day Length of Time of Smoking/Using Tobacco: 47 years Have You Smoked in the Last Year: Yes Review of Systems Positive: Fever, Chills Positive: Abdominal Pain - cramping, Vomiting, Diarrhea, Nausea, Other - Negative blood in the stools All Other Systems Reviewed And Are Negative: Yes Physical Exam - Summary Physical Exam Summary: VITAL SIGNS: Reviewed. GENERAL: Patient is a well-developed and nourished female who is lying comfortable in the stretcher. Patient is not in any acute respiratory distress. HEAD AND FACE: No signs of trauma. No ecchymosis, hematomas or skull depressions. No sinus tenderness. EYES: PERRLA, EOMI x 2, No injected conjunctiva, no nystagmus. EARS: Hearing grossly intact. Ear canals and tympanic membranes are within normal limits. MOUTH: Oropharynx within normal limits. Dry oral mucosa. NECK: Supple, trachea is midline, no adenopathy, no JVD, no carotid bruit, no c- spine tenderness, neck with full ROM. CHEST: Symmetric, no tenderness at palpation. Tachycardia. LUNGS: Wheezing bilaterally. No crackles. CVS: Regular rate and rhythm, S1 and S2 present, no murmurs or gallops appreciated. ABDOMEN: Soft, non-tender. No signs of distention. No rebound no guarding, and no masses palpated. Bowel sounds are normal. EXTREMITIES: FROM in all major joints, no edema, no cyanosis or clubbing. NEURO: Alert and oriented x 3. No acute neurological deficits. Speech is normal and follows commands. SKIN: Dry and warm Triage Information Reviewed: Yes Vital Signs On Initial Exam: Initial Vitals Temp Pulse Resp BP Pulse Ox 100.1 F 111 17 136/68 99 02/22/17 13:36 02/22/17 13:36 02/22/17 13:36 02/22/17 13:36 02/22/17 13:36 Vital Signs Reviewed: Yes - Remigio Coma Scale Coma Scale Total: 15 Diagnostics - Vital Signs Vital Signs Temp Pulse Resp BP Pulse Ox 02/22/17 13:36 100.1 F 111 17 136/68 99 - Laboratory Lab Results: Lab Results 02/22/17 02/22/17 02/22/17 Range/Units 14:20 14:20 18:15 WBC 11.2 H (3.5-10.8) 10^3/ul RBC 3.52 L (4.0-5.4) 10^6/ul Hgb 10.5 L (12.0-16.0) g/dl Hct 32 L (35-47) % MCV 91 (80-97) fL MCH 30 (27-31) pg MCHC 33 (31-36) g/dl RDW 16 H (10.5-15) % Plt Count 367 (150-450) 10^3/ul MPV 8 (7.4-10.4) um3 Neut % (Auto) 72.7 (38-83) % Lymph % (Auto) 14.6 L (25-47) % Karn[place] % (Auto) 11.5 H (1-9) % Eos % (Auto) 0.7 (0-6) % Baso % (Auto) 0.5 (0-2) % Absolute Neuts (auto) 8.1 H (1.5-7.7) 10^3/ul Absolute Lymphs (auto) 1.6 (1.0-4.8) 10^3/ul Absolute Monos (auto) 1.3 H (0-0.8) 10^3/ul Absolute Eos (auto) 0.1 (0-0.6) 10^3/ul Absolute Basos (auto) 0.1 (0-0.2) 10^3/ul Absolute Nucleated RBC 0 10^3/ul Nucleated RBC % 0 Sodium 122 L (133-145) mmol/L Potassium 3.5 (3.5-5.0) mmol/L Chloride 91 L (101-111) mmol/L Carbon Dioxide 22 (22-32) mmol/L Anion Gap 9 (2-11) mmol/L BUN 15 (6-24) mg/dL Creatinine 1.21 H (0.51-0.95) mg/dL Est GFR ( Amer) 57.4 (>60) Est GFR (Non-Af Amer) 44.7 (>60) BUN/Creatinine Ratio 12.4 (8-20) Glucose 72 (70-100) mg/dL Calcium 8.9 (8.6-10.3) mg/dL Total Bilirubin 0.40 (0.2-1.0) mg/dL AST 16 (13-39) U/L ALT 11 (7-52) U/L Alkaline Phosphatase 72 (34-104) U/L C-Reactive Protein 2.92 (< 5.00) mg/L Total Protein 6.2 L (6.4-8.9) g/dL Albumin 3.4 (3.2-5.2) g/dL Globulin 2.8 (2-4) g/dL Albumin/Globulin Ratio 1.2 (1-3) Lipase < 10 L (11.0-82.0) U/L Urine Color Yellow Urine Appearance Clear Urine pH 6.0 (5-9) Ur Specific [place] 1.005 L (1.010-1.030) Urine Protein 1+(30 mg/dl) H (Negative) Urine Ketones Trace H (Negative) Urine Blood Negative (Negative) Urine Nitrate Negative (Negative) Urine Bilirubin Negative (Negative) Urine Urobilinogen Negative (Negative) Ur Leukocyte Esterase Negative (Negative) Urine WBC (Auto) Trace(0-5/hpf) (Absent) Urine RBC (Auto) Absent (Absent) Urine Bacteria Absent (Absent) Urine Glucose Negative (Negative) Result Diagrams: 02/23/17 04:38 02/23/17 04:39 Lab Statement: Any lab studies that have been ordered have been reviewed, and results considered in the medical decision making process. - Radiology CXR Radiology Interpretation Completed By: Radiologist - Postoperative changes of the left upper lobe with no evidence of active cardiopulmonary disease. ED physician has reviewed this radiology report and agrees. GIGU Course/Dx - Course Assessment/Plan: This patient is a 66 year old F BIBA to [facility] with a chief complaint of N/V/D since 4 days ago. The patient rates the pain 0/10 in severity. Symptoms aggravated by nothing. Symptoms alleviated by nothing. Patient reports fever, chills, and abdominal cramping. Patient denies blood in the stools. She denies change in diet and recent sick contacts. She reports abx use 3 weeks ago. PMHx includes COPD. Test results reveals blood cell count of 11.2, slight anemia, hyponatremia with a sodium of 122, and creatinine of 1.21. CXR reveals Postoperative changes of the left upper lobe with no evidence of active cardiopulmonary disease. ED physician has reviewed this radiology report and agrees. In the ED course the patient was given IV fluids for rehydration for diarrhea, Tylenol and [place] for chronic pain. Because of hyponatremia, I consulted Dr. Burk (hospitalist) who agrees to admit. The patient is hemodynamically stable, alert and oriented x3. - Diagnoses Provider Diagnoses: Nausea, vomiting and diarrhea, Hyponatremia - Physician Notifications Discussed Care Of Patient With: Valencia Burk Time Discussed With Above Provider: 17:04 Instructed by Provider To: Other - Consulted Dr. Burk (hospitalist) who agrees to admit. Discharge - Discharge Plan Condition: Stable Disposition: ADMITTED TO [facility] The documentation as recorded by the Ayleen crawford Alfonso accurately reflects the service I personally performed and the decisions made by , Jonathan Cross MD.
[2017-02-23 07:44] VITALS: BP 132/69
[2017-02-23] MEDS: Omeprazole CAP* 20 MG PO SCH (07:55)
[2017-02-23] MEDS: LORazepam TAB(*) 0.5 MG PO PRN ×2 (07:57→17:06)
[2017-02-23] MEDS ORDERED: Potassium Chlor TAB* 20 MEQ TAB.ER PO ONE (08:26)
[2017-02-23] MEDS ORDERED: amLODIPine TAB* 5 MG PO SCH (09:00)
[2017-02-23] MEDS ORDERED: DULoxetine DR CAP* 60 MG CAP.DR PO SCH (09:00)
[2017-02-23] MEDS ORDERED: Tiotropium CAP.INH* CAP.INH/18 MCG (USE ORDER SET !) INH SCH (09:00)
[2017-02-23] MEDS ORDERED: Spiriva Inhaler DEVICE* 1 EACH DEVICE INH ONE (09:00)
[2017-02-23] MEDS ORDERED: Atenolol TAB* 25 MG PO SCH (09:00)
[2017-02-23] MEDS ORDERED: Rivaroxaban TAB(*) 20 MG TAB PO SCH (17:00)
[2017-02-23] MEDS ORDERED: Mometasone 220 MCG MDI INH SCH (18:00)
--- NOTE | 2017-02-24 04:54 | DS ---
CC: Guerrero Gtz* DISCHARGE SUMMARY: DATE OF ADMISSION: 02/22/17 DATE OF DISCHARGE: 02/23/17 PRIMARY CARE PROVIDER: Guerrero Gtz. PRIMARY DIAGNOSIS: Gastroenteritis. SECONDARY DIAGNOSES: Include: 1. Hyponatremia. 2. Chronic obstructive pulmonary disease. 3. Hypertension. 4. Hyperlipidemia. 5. Hypothyroidism. 6. History of opiate and benzodiazepine abuse. 7. Anxiety and depression. 8. Tobacco abuse. 9. Hypokalemia. MEDICATIONS ON DISCHARGE: Unchanged from admission except for the addition of Bactrim include: 1. Albuterol HFA two puffs every 4 hours as needed. 2. Albuterol nebulizer every 4 hours as needed. 3. Cymbalta 60 mg daily. 4. Atenolol 25 mg daily. 5. Amlodipine 5 mg daily. 6. Spiriva one cap inhale daily. 7. Seroquel 200 mg at bedtime. 8. Prilosec 40 mg twice daily. 9. Levothyroxine 175 mcg daily. 10. Ipratropium 0.5 mg 4 times a day as needed. 11. Flovent one puff twice daily. 12. Acetaminophen 650 mg every 4 hours as needed. PERTINENT LABORATORY DATA: Sodium on presentation 122, sodium on discharge 133. Stool culture negative for C. diff colitis. Urine, no bacteria, white counts, leuk esterase or nitrites. HISTORY OF PRESENT ILLNESS AND HOSPITAL COURSE: This is a 66-year-old female with past medical history as outlined in the history of present illness on the day of admission, who presented to the hospital, is having several days of nausea, vomiting, diarrhea; however, the sodium level is 122. In the past, she has had recurrent episodes of hyponatremia in the past thought to have been caused in the setting of polydipsia. She was admitted at this time, treated with normal saline with rapid improvement to baseline sodium 133 on the day of discharge representing hypovolemic, hyponatremia in the setting of her nausea, vomiting, and diarrhea. After hospital stay, she had one bowel movement in the afternoon after being admitted, no episodes of nausea, vomiting, and tolerated both breakfast and lunch. She felt back to her baseline and was comfortable being discharged home. She did request in sequence hydrocodone and tramadol and Ativan prior to discharge, all of which were denied secondary to her past history of abuse and dependence. There were no complications during the patient 's hospital stay. Reasons to return to the hospital included but not limited to recurrent or worsening symptoms, chest pain, shortness of breath, nausea, vomiting, lightheadedness, loss of consciousness, near loss of consciousness, bleeding from any source, inability to tolerate food or her medications discussed with the patient. She acknowledged understanding. At followup, please; 1. Consider repeat BMP at a future time to ensure continued stability for sodium in the setting of recurrent hyponatremia. 2. No other specific labs or vitals that need followup. TIME SPENT: Greater than 45 minutes was spent on the discharge of this patient , greater than half was spent [id number] with the patient. [id number]/[facility] #: [id number] MTDD
== END 2017-02-23 18:15 | disposition home or self-care (01) ==
LOC: ED 13:19 → MED 18:34 → INTOOBSV 18:34
PROVIDERS: ADMIT Internal Medicine; ATTEND Internal Medicine
DX: K52.9 Noninfective gastroenteritis and colitis, unspecified (principal); E87.1 Hypo-osmolality and hyponatremia; J44.9 Chronic obstructive pulmonary disease, unspecified; I10 Essential (primary) hypertension; E78.5 Hyperlipidemia, unspecified; E03.9 Hypothyroidism, unspecified; F41.9 Anxiety disorder, unspecified; F32.9 Major depressive disorder, single episode, unspecified; E87.6 Hypokalemia; Z79.899 Other long term (current) drug therapy; Z88.6 Allergy status to analgesic agent; Z91.040 Latex allergy status; F17.210 Nicotine dependence, cigarettes, uncomplicated
CPT/HCPCS: 36415; 71020; 80048; 80053; 81003; 81015; 83630; 83690; 85025; 86140; 87493; 94640; 96374; 99284; A9270-GY; G0378; J1650; J2405; J7644

== ENCOUNTER 2017-03-11 09:20 | Observation (INO) | payer MEDICARE, BC ==
[2017-03-11] MEDS ORDERED: Albuterol/Ipratropium NEB.SOL* Albuterol 2.5 MG/Ipratropium 0.5 MG 3 ML INH ONE (09:23)
[2017-03-11] MEDS ORDERED: methylPREDNISolone 125 MG* 2 ML VIAL IV ONE (09:23)
[2017-03-11] MEDS ORDERED: NS 0.9% 1000 ML* 1,000 ML IV ONE (09:23)
[2017-03-11 09:54] LABS: Add Diff/Slide Review? Slide Review Added; Comments Flag Yes; Hematocrit 34 % (35-47); Hemoglobin 11.6 g/dl (12.0-16.0); Mean Corpuscular HGB Conc 34 g/dl (31-36); Mean Corpuscular Hemoglobin 31 pg (27-31); Mean Corpuscular Volume 90 fL (80-97); Mean Platelet Volume 8 um3 (7.4-10.4); Red Cell Distribution Width 17 % (10.5-15); White Blood Count 11.6 10^3/ul (3.5-10.8)
--- NOTE | 2017-03-11 10:00 | RAD ---
HISTORY: Shortness of breath, history of lobectomy on the left COMPARISONS: February 22, 2017 VIEWS: 2: Frontal and lateral views of the chest. FINDINGS: CARDIOMEDIASTINAL SILHOUETTE: The cardiomediastinal silhouette is normal. MEHRAN: There is postsurgical change to the left hilum. PLEURA: The costophrenic angles are sharp. No pleural abnormalities are noted. LUNG PARENCHYMA: The lungs are clear. There is asymmetry of the lung volumes consistent with the history of lobectomy. ABDOMEN: The upper abdomen is clear. There is no subphrenic gas. BONES AND SOFT TISSUES: Degenerative changes are noted along the spine. OTHER: None. IMPRESSION: NO ACTIVE CARDIOPULMONARY DISEASE.
[2017-03-11 10:12] LABS: Albumin 3.6 g/dL (3.2-5.2); BUN/Creatinine Ratio 7.3 (8-20); C Reactive Protein 14.93 mg/L (< 5.00); Calcium 8.7 mg/dL (8.6-10.3); Total Bilirubin 0.5 mg/dL (0.2-1.0); Total Protein 6.6 g/dL (6.4-8.9); Troponin I 0.01 ng/mL (<0.04)
[2017-03-11] MEDS ORDERED: LORazepam INJ* 2 MG/ML 1 ML VIAL IV PUSH ONE (10:49)
[2017-03-11 11:17] LABS: Potassium 3.9 mmol/L (3.5-5.0)
[2017-03-11] MEDS ORDERED: Acetaminophen TAB* 325 MG PO PRN (12:11)
[2017-03-11] MEDS ORDERED: Ondansetron INJ* 2 MG/ML VIAL IV PRN (12:11)
[2017-03-11] MEDS ORDERED: Ipratropium 0.5MG/2.5ML NEB* 0.5 MG/2.5 ML NEB.SOLN INH PRN (12:14)
[2017-03-11] MEDS ORDERED: Albuterol HFA INHALER* 8 gm MDI INH PRN (12:14)
[2017-03-11] MEDS ORDERED: Albuterol 2.5 MG/3 ML NEB.SOL* (0.083%) INH PRN (12:14)
[2017-03-11] MEDS ORDERED: NS 0.9% 1000 ML* 1,000 ML IV SCH (12:15)
[2017-03-11] MEDS ORDERED: Metoprolol Tartrate TAB* 50 mg PO SCH (13:00)
[2017-03-11] MEDS: Heparin VIAL(*) 5000 UNITS/ML VIAL (FIVE THOUSAND) SUBCUT SCH ×2 (13:10→22:32)
[2017-03-11] MEDS: predniSONE TAB* 20 MG PO SCH (13:10)
[2017-03-11] MEDS: Albuterol/Ipratropium NEB.SOL* Albuterol 2.5 MG/Ipratropium 0.5 MG 3 ML INH SCH ×2 (14:32→20:50)
[2017-03-11] MEDS ORDERED: ALPRAZolam TAB* 0.5 MG PO ONE (15:43)
--- NOTE | 2017-03-11 15:43 | HP ---
CC: Guerrero Gtz NP * HISTORY AND PHYSICAL: DATE OF ADMISSION: 03/11/17 PRIMARY CARE PROVIDER: Guerrero Gtz NP ATTENDING PHYSICIAN WHILE IN THE HOSPITAL: Kate Hubbard MD * (report dictated by Hector Vázquez NP) CHIEF COMPLAINT: 1. Chest tightness. 2. Could not take a deep breath. HISTORY OF PRESENT ILLNESS: Mrs. Glover is a 66-year-old female patient. 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 She does freely admit to me today that she has been drinking a significant amount of free fluids. She has a history of COPD, history of lung cancer status post left upper lobe lobectomy, PFO, hypertension, hyperlipidemia, hypothyroidism, chronic pain, history of opioid and benzo abuse in the past, and a history of anxiety. She comes in to the ER today because she states that around 5:30, she woken up from sleep, she could not take a deep breath. She states that it felt like there was a cinder block on her chest. She has had episodes intermittently, was having chest discomfort. She states normally she can work through and then it goes away. Sometimes, they are exertional. She denied having any nausea with this discomfort today. No diaphoresis. She states she was concerned and she came in to the ER today to be evaluated. She denied any recent fevers or chills or coughing. She does state that she has not had anymore nausea, vomiting, or diarrhea. She states she has been taking her medications prescribed anxiously enough. She does have a history of PE in the past and she states she stopped her Xarelto about a couple weeks ago as what she was supposed to do. She was concerned because of the chest discomfort and decided to come in to the ER today to be evaluated. She is chest pain-free now. There have been no reports of cough, shortness of breath, rhinorrhea, sore throat, or congestion. PAST MEDICAL HISTORY: Significant for: 1. Hyponatremia. 2. COPD. 3. Lung cancer. 4. PFO. 5. Hypertension. 6. Hyperlipidemia. 7. Hypothyroidism. 8. Chronic pain. 9. History of PE status post 3 months of anticoagulation. 10. History of opioid and benzo abuse. 11. Anxiety. PAST SURGICAL HISTORY: 1. She has had a left upper lobe lobectomy. 2. Tonsillectomy. 3. Hysterectomy. MEDICATIONS: The home meds according to the list she provided include: 1. Seroquel 200 mg p.o. at bedtime. 2. Prilosec 40 mg p.o. b.i.d. 3. Synthroid 175 mcg daily. 4. Metoprolol tartrate 50 mg daily. 5. Atrovent 0.5 mg inhaled q.i.d. as needed. 6. Flovent 1 puff inhaled b.i.d. 7. Cymbalta 60 mg p.o. daily. 8. Amlodipine 5 mg daily. 9. Ventolin 2 puffs inhaled every 4 hours as needed. 10. Albuterol nebulizer 2.5 mg inhaled every 4 hours as needed. 11. Tylenol 650 mg every 4 hours as needed. ALLERGIES TO MEDICATIONS: Include ASPIRIN and LATEX. She does get anaphylaxis to ASPIRIN. FAMILY HISTORY: Mother had a history of ulcerative colitis. Father had a history of AK. SOCIAL HISTORY: She is a smoker. She is smoking about half a pack a day. She has been smoking since the age of 18. She does not drink alcohol. Surrogate decision maker is her daughter, Elyssa. REVIEW OF SYSTEMS: There is no documented fever. She denied any significant weight change. There was no double vision. There is no ear discharge. She denied having any rhinorrhea. No sore throat, no thyroid enlargement. There is chest discomfort per my HPI. There was shortness of breath. There is no orthopnea. No nocturnal dyspnea. There was no abdominal pain. No nausea, no vomiting, no dysuria, no frequency. There was no seizure. There was no loss of consciousness. No pruritus and no skin ulcerations. Review of 14 systems completed; all others negative. PHYSICAL EXAMINATION GENERAL: At this time, Mrs. Glover is a 66-year-old female patient. She is chronically ill appearing. She is sitting in the ER stretcher. She does not appear to be in any acute distress. VITAL SIGNS: Blood pressure 143/93 with a pulse of 105, respirations were 20, O2 sat was 98% on room air, and temperature was 97.8. HEENT: Head: Atraumatic, normocephalic. Eyes: EOMs are intact. Sclerae are anicteric. Throat: Oral mucosa appears to be moist. No oropharyngeal erythema. NECK: Supple. LUNGS: She did have wheezing noted in the lower base. She had equal diaphragmatic expansion. HEART: Sounds S1, S2. Regular rate and rhythm. She is tachycardic. No murmurs, rubs, or gallops. ABDOMEN: It was soft, flat, nontender. Bowel sounds were present. EXTREMITIES: Pulses are 2+ throughout. She is able to move all 4 extremities with 5/5 strength. NEUROLOGIC: The patient is awake, alert, and oriented x3. Tongue midline. [employer] are equal. No gross focal deficits. SKIN: Grossly intact. LABORATORY DATA/DIAGNOSTIC STUDIES: The labs today revealed a WBC of 11.6, RBC of 3.80, hemoglobin 11.6, hematocrit 34, and platelet count 399. Sodium 122 , potassium 3.9, chloride of 88, bicarb was 21, the BUN was 6, creatinine 0.82, and glucose 94. Lactate 1.5. Calcium 10.7, total bili 0.5, AST 22, ALT 13, alk phos 88. CK 158. Troponin 0.01. CRP of 14.9. Albumin of 3.6. Serology was negative for flu. She did have a chest x-ray obtained today, which revealed no active cardiopulmonary disease. There was an EKG obtained today showing a sinus tachycardia, the rate was 107, she had LVH but no ST elevations were noted, no T-wave inversions, reviewed with previous EKG, it is similar with the exception of tachycardia that is new. She did have an echo done in July of this year, EF greater than 65%. Old medical records were reviewed. ASSESSMENT AND PLAN: Mrs. Glover is a 66-year-old female patient coming in to the ER today with complaints of chest discomfort, not able to take a deep breath. Hospitalist service was asked to evaluate for admission. She will be admitted under observation status for: 1. Chest pain. Etiology is unclear. Certainly, it could be cardiac related. Certainly, it could also be related to PE. My plan is to check a D-dimer. If this is positive, I will certainly pursue CTA to make sure there is no PE. She is having some wheeze on exam as well. So, I am going to give her some steroids and also put her on nebs every 6 hours while awake and follow her closely. If the CTA is negative for PE, I probably would pursue a stress test if certainly she has risk factors. I am going to trend serial troponins. We will go ahead and place her on telemetry. Unfortunately, cannot give aspirin because she has anaphylaxis to this. If she does elevate her troponins or has any more continued chest pain, I would consider Plavix, Brilinta, or possibly Effient, but I will get recommendations from Cardiology prior to starting one of those medications and for the time being though we will continue to follow. 2. Tachycardia. This could be related to the recent neb she received down here in the ED. It could also be related to the fact that she does not take her a.m. meds and she is on Lopressor. So, I am going to give her her meds now. We will hydrate her. We will follow this closely. Also, it could be related to the fact that she has a new PE. This could be driving this. So again, awaiting on D-dimer and possible CTA. 3. Hyponatremia. Sodium is 122. She does actively admit she has been drinking a lot amount of free water. My plan is to go ahead and to cut back on her free water. We will hydrate her. Repeat the BMP later today and make sure it is trending upwards. 4. History of chronic obstructive pulmonary disease. Again, she is wheezing on exam. I am going to give her neb standing. In addition to this, also place her on steroids. 5. History of lung cancer. Follow with primary. 6. Patent foramen ovale. We will continue to monitor. 7. Hypertension. Continue meds as prescribed. 8. Hyperlipidemia. Continue meds as prescribed. 9. Chronic pain. Tylenol available. 10. Hypothyroidism. Continue her Synthroid. 11. Anxiety. Supportive care. 12. DVT prophylaxis. She is at high risk. She will be placed on heparin subcu. 13. Code status. She is a full code. 14. Fluids, electrolytes, and nutrition. She can have a heart healthy diet and then she will be n.p.o. after midnight for possible stress test. TIME SPENT: On admission was approximately 60 minutes, greater than half the time was spent [id number] with the patient obtaining my history and physical; other half time was spent going over the plan of care with the patient and implementing plan of care. I discussed the plan of care with my attending, Dr. Hubbard. She is in agreement. HECTOR VÁZQUEZ, MILTON [id number]/[facility] #: [id number] NICOLE
[2017-03-11] MEDS: Omeprazole CAP* 20 MG PO SCH (15:54)
[2017-03-11] MEDS ORDERED: Iohexol 350* (CONTRAST) 500 ML MDV IV ONE (16:17)
--- NOTE | 2017-03-11 17:11 | RAD ---
INDICATION: Chest pain and shortness of breath. History of LEFT upper lobe lung cancer with lobectomy in 2013. COMPARISON: March 11, 2017 chest radiograph and February 07, 2017 CT. TECHNIQUE: Multidetector CT images were obtained from the lung apices to the upper abdomen with 56 mL Omnipaque 350 IV contrast. Pulmonary angiogram protocol. Multiplanar reformation including with maximum intensity projection. REPORT: LEFT hemithorax volume loss reflecting LEFT upper lobectomy. Unchanged small volume of dependent LEFT pleural fluid. Moderately severe emphysema most marked at the RIGHT upper lobe. Minimal alveolar consolidation at the medial basal segment of the RIGHT lower lobe which may represent atelectasis or inflammatory infiltrate. No suspicious focal pulmonary lesions. Negative for pneumothorax. Negative for thoracic lymphadenopathy. Negative for cardiomegaly or pericardial effusion. Normal diameter thoracic aorta with mild atherosclerotic plaque. Negative for aortic dissection. No filling defects are identified from the main to the subsegmental pulmonary arteries to indicate presence of a pulmonary embolism. Unremarkable images through the upper abdomen. Increased thoracic kyphosis without subluxation at any level. No thoracic fractures or suspicious focal osseous lesions evident. IMPRESSION: 1. Negative for pulmonary embolism. 2. Postsurgical change of LEFT upper lobectomy. No suspicious focal pulmonary lesion evident. 3. Negative for thoracic lymphadenopathy. 4. Moderately severe emphysema.
[2017-03-11 19:23] LABS: Calcium 8.4 mg/dL (8.6-10.3); EGFR African American 79.8 (>60); Potassium 3.2 mmol/L (3.5-5.0)
[2017-03-11] MEDS: Mometasone 220 MCG MDI INH SCH (20:52)
[2017-03-11] MEDS ORDERED: QUEtiapine TAB* 100 MG PO SCH (21:00)
[2017-03-11] MEDS: Metoprolol Tartrate TAB* 50 mg PO SCH (21:05)
[2017-03-12] MEDS: Albuterol/Ipratropium NEB.SOL* Albuterol 2.5 MG/Ipratropium 0.5 MG 3 ML INH SCH ×3 (01:09→13:37)
[2017-03-12] MEDS ORDERED: Levothyroxine TAB* 175 MCG TAB PO SCH (06:00)
[2017-03-12 06:02] LABS: Hematocrit 32 % (35-47); Hemoglobin 10.3 g/dl (12.0-16.0); Mean Corpuscular HGB Conc 32 g/dl (31-36); Mean Corpuscular Hemoglobin 30 pg (27-31); Mean Corpuscular Volume 92 fL (80-97); Mean Platelet Volume 8 um3 (7.4-10.4); Red Blood Count 3.48 10^6/ul (4.0-5.4); Red Cell Distribution Width 17 % (10.5-15); White Blood Count 9.6 10^3/ul (3.5-10.8)
[2017-03-12] MEDS: Heparin VIAL(*) 5000 UNITS/ML VIAL (FIVE THOUSAND) SUBCUT SCH ×2 (06:12→14:34)
[2017-03-12 06:15] LABS: BUN/Creatinine Ratio 11.3 (8-20); Calcium 8.3 mg/dL (8.6-10.3); EGFR African American 106.3 (>60); EGFR Non-African American 82.6 (>60); Potassium 2.9 mmol/L (3.5-5.0)
--- NOTE | 2017-03-12 08:10 | ED ---
Ayleen Winkler Alfonso, scribed for Jonathan Cross MD on 03/11/17 at 0941 . HPI Chest Pain - HPI Summary HPI Summary: This patient is a 66 year old F BIBA to [facility] with a chief complaint of pressured CP since waking up 2 hours ago. The patient rates the pain 9/10 in severity. Symptoms aggravated by nothing. Symptoms alleviated by nothing. Patient reports chill, SOB, and headache. Patient denies fever, coughing, nausea , vomiting, and abdominal pain. - History of Current Complaint Chief Complaint: EDChestPainROMI Hx Obtained From: Patient Onset/Duration: Started Hours Ago - 2, Still Present Timing: Constant Current Severity: Severe Pain Intensity: 9 Pain Scale Used: 0-10 Numeric Character: Pressure/Squeezing Aggravating Factor(s): Nothing Alleviating Factor(s): Nothing Associated Signs and Symptoms: Positive: Other: - chill, SOB, and headache. Patient denies fever, coughing, nausea, vomiting, and abdominal pain. - Additional Pertinent History Primary Care Physician: LUIS - Allergy/Home Medications Allergies/Adverse Reactions: Allergies Allergy/AdvReac Type Severity Reaction Status Date / Time Aspirin Allergy Anaphylatic Verified 03/11/17 09:24 Shock Latex AdvReac Mild Rash Verified 03/11/17 09:24 Home Medications: Home Medications Metoprolol Tartrate TAB* [Lopressor TAB*] 50 mg PO DAILY 03/11/17 [History Confirmed 03/11/17] PMH/Surg Hx/FS Hx/Imm Hx Endocrine/Hematology History: Reports: Hx Thyroid Disease - hypothyroid, Other Endocrine/Hematological Disorders - Benign goiter Denies: Hx Bone Marrow Disease, Hx Diabetes, Hx Systemic Lupus Erythematosus Cardiovascular History: Reports: Hx Hypercholesterolemia - was high before cancer,now off meds., Hx Hypertension, Other Cardiovascular Problems/Disorders - patent foramen ovale; Murmur Denies: Hx Congestive Heart Failure, Hx Pacemaker/ICD Respiratory History: Reports: Hx Asthma, Hx Chronic Obstructive Pulmonary Disease (COPD), Hx Lung Cancer - Left upper lobectomy, Hx Pneumonia, Other Respiratory Problems/Disorders - lung cancer, LOBECTOMY 09/11/11 GI History: Reports: Hx Gastroesophageal Reflux Disease, Hx Hiatal Hernia, Other GI Disorders - hiatal hernia, colitis. 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, Hx Osteoporosis - Possible, Hx Scoliosis, Other Musculoskeletal History - scoliosis Denies: Hx Rheumatoid Arthritis Sensory History: Reports: Hx Cataracts - PATIENT STATES BEGINING OF CATARACTS LEFT EYE, Hx Contacts or Glasses, Hx Hearing Problem - right Denies: Hx Hearing Aid Opthamlomology History: Reports: Hx Cataracts - PATIENT STATES BEGINING OF CATARACTS LEFT EYE, Hx Contacts or Glasses Neurological History: Reports: Hx Headaches - frequent h/a's, Hx Migraine - Rare post menopause Psychiatric History: Reports: Hx Anxiety, Hx Depression, Hx Community Mental Health Tx, Hx Substance Abuse - opiods Denies: Hx Panic Disorder, Hx Inpatient Treatment - Cancer History Cancer Type, Location and Year: LUNG CA, DIAGNOSED July 2012 Hx Chemotherapy: Yes Hx Radiation Therapy: No Hx Palliative Cancer Treatment: No - Surgical History Surgery Procedure, Year, and Place: LEFT UPPER LUNG REMOVED 09/2012, HYSTERECTOMY , tonsillectomy Hx Anesthesia Reactions: No - Immunization History Date of Tetanus Vaccine: UTD Date of Influenza Vaccine: 05/01/16 Infectious Disease History: No Infectious Disease History: Denies: Hx of Known/Suspected MRSA, Traveled Outside the [place] in Last 30 Days - Family History Known Family History: Positive: Cardiac Disease - Sudden cardiac arrest (father) , Other - son -- glioblastoma. UC mother. Fhx of colitis. - Social History Alcohol Use: None Hx Substance Use: No Substance Use Type: Reports: None Substance Use Comment - Amount & Last Used: opiates Hx Tobacco Use: Yes Smoking Status (MU): Heavy Every Day Tobacco Smoker Type: Cigarettes Amount Used/How Often: 1/2 pack a day Length of Time of Smoking/Using Tobacco: 47 years Have You Smoked in the Last Year: Yes Review of Systems Positive: Chills. Negative: Fever Positive: Chest Pain Positive: Shortness Of Breath. Negative: Cough Negative: Abdominal Pain, Vomiting, Nausea Positive: Headache All Other Systems Reviewed And Are Negative: Yes Physical Exam - Summary Physical Exam Summary: VITAL SIGNS: Reviewed. GENERAL: Patient is a well-developed and nourished female who is lying comfortable in the stretcher. Patient is in some respiratory distress, but she can speak in full sentences. HEAD AND FACE: No signs of trauma. No ecchymosis, hematomas or skull depressions. No sinus tenderness. EYES: PERRLA, EOMI x 2, No injected conjunctiva, no nystagmus. EARS: Hearing grossly intact. Ear canals and tympanic membranes are within normal limits. MOUTH: Oropharynx within normal limits. Dry oral mucosa. NECK: Supple, trachea is midline, no adenopathy, no JVD, no carotid bruit, no c- spine tenderness, neck with full ROM. CHEST: Symmetric, no tenderness at palpation LUNGS: Decreased breath sounds bilaterally. No wheezing or crackles. CVS: Tachycardia. Regular rhythm, S1 and S2 present, no murmurs or gallops appreciated. ABDOMEN: Soft, non-tender. No signs of distention. No rebound no guarding, and no masses palpated. Bowel sounds are normal. EXTREMITIES: FROM in all major joints, no edema, no cyanosis or clubbing. NEURO: Alert and oriented x 3. No acute neurological deficits. Speech is normal and follows commands. SKIN: Dry and warm Triage Information Reviewed: Yes Vital Signs On Initial Exam: Initial Vitals Temp Pulse Resp BP Pulse Ox 97.8 F 108 25 118/95 100 03/11/17 09:21 03/11/17 09:21 03/11/17 09:21 03/11/17 09:21 03/11/17 09:21 Vital Signs Reviewed: Yes Diagnostics - Vital Signs Vital Signs Temp Pulse Resp BP Pulse Ox 03/11/17 09:21 97.8 F 108 25 118/95 100 - Laboratory Lab Results: Lab Results 03/11/17 03/11/17 03/11/17 Range/Units 09:35 09:35 09:35 WBC 11.6 H (3.5-10.8) 10^3/ul RBC 3.80 L (4.0-5.4) 10^6/ul Hgb 11.6 L (12.0-16.0) g/dl Hct 34 L (35-47) % MCV 90 (80-97) fL MCH 31 (27-31) pg MCHC 34 (31-36) g/dl RDW 17 H (10.5-15) % Plt Count 399 (150-450) 10^3/ul MPV 8 (7.4-10.4) um3 Neut % (Auto) 76.6 (38-83) % Lymph % (Auto) 13.5 L (25-47) % Powell % (Auto) 8.2 (1-9) % Eos % (Auto) 1.0 (0-6) % Baso % (Auto) 0.7 (0-2) % Absolute Neuts (auto) 8.9 H (1.5-7.7) 10^3/ul Absolute Lymphs (auto) 1.6 (1.0-4.8) 10^3/ul Absolute Monos (auto) 0.9 H (0-0.8) 10^3/ul Absolute Eos (auto) 0.1 (0-0.6) 10^3/ul Absolute Basos (auto) 0.1 (0-0.2) 10^3/ul Absolute Nucleated RBC 0 10^3/ul Nucleated RBC % 0 Sodium 122 L (133-145) mmol/L Potassium 3.9 (3.5-5.0) mmol/L Chloride 88 L (101-111) mmol/L Carbon Dioxide 21 L (22-32) mmol/L Anion Gap 13 H (2-11) mmol/L BUN 6 (6-24) mg/dL Creatinine 0.82 (0.51-0.95) mg/dL Est GFR ( Amer) 90.0 (>60) Est GFR (Non-Af Amer) 70.0 (>60) BUN/Creatinine Ratio 7.3 L (8-20) Glucose 94 (70-100) mg/dL Lactic Acid (0.5-2.0) mmol/L Calcium 8.7 (8.6-10.3) mg/dL Total Bilirubin 0.50 (0.2-1.0) mg/dL AST 22 (13-39) U/L ALT 13 (7-52) U/L Alkaline Phosphatase 88 (34-104) U/L Total Creatine Kinase 158 (10-223) U/L Troponin I 0.01 (<0.04) ng/mL C-Reactive Protein 14.93 H (< 5.00) mg/L B-Natriuretic Peptide 370 H ( - 100) pg/mL Total Protein 6.6 (6.4-8.9) g/dL Albumin 3.6 (3.2-5.2) g/dL Globulin 3.0 (2-4) g/dL Albumin/Globulin Ratio 1.2 (1-3) Influenza A (Rapid) (Negative) Influenza B (Rapid) (Negative) 03/11/17 03/11/17 Range/Units 09:46 09:58 WBC (3.5-10.8) 10^3/ul RBC (4.0-5.4) 10^6/ul Hgb (12.0-16.0) g/dl Hct (35-47) % MCV (80-97) fL MCH (27-31) pg MCHC (31-36) g/dl RDW (10.5-15) % Plt Count (150-450) 10^3/ul MPV (7.4-10.4) um3 Neut % (Auto) (38-83) % Lymph % (Auto) (25-47) % Powell % (Auto) (1-9) % Eos % (Auto) (0-6) % Baso % (Auto) (0-2) % Absolute Neuts (auto) (1.5-7.7) 10^3/ul Absolute Lymphs (auto) (1.0-4.8) 10^3/ul Absolute Monos (auto) (0-0.8) 10^3/ul Absolute Eos (auto) (0-0.6) 10^3/ul Absolute Basos (auto) (0-0.2) 10^3/ul Absolute Nucleated RBC 10^3/ul Nucleated RBC % Sodium (133-145) mmol/L Potassium (3.5-5.0) mmol/L Chloride (101-111) mmol/L Carbon Dioxide (22-32) mmol/L Anion Gap (2-11) mmol/L BUN (6-24) mg/dL Creatinine (0.51-0.95) mg/dL Est GFR ( Amer) (>60) Est GFR (Non-Af Amer) (>60) BUN/Creatinine Ratio (8-20) Glucose (70-100) mg/dL Lactic Acid 1.5 (0.5-2.0) mmol/L Calcium (8.6-10.3) mg/dL Total Bilirubin (0.2-1.0) mg/dL AST (13-39) U/L ALT (7-52) U/L Alkaline Phosphatase (34-104) U/L Total Creatine Kinase (10-223) U/L Troponin I (<0.04) ng/mL C-Reactive Protein (< 5.00) mg/L B-Natriuretic Peptide ( - 100) pg/mL Total Protein (6.4-8.9) g/dL Albumin (3.2-5.2) g/dL Globulin (2-4) g/dL Albumin/Globulin Ratio (1-3) Influenza A (Rapid) Negative (Negative) Influenza B (Rapid) Negative (Negative) Result Diagrams: 03/12/17 05:39 03/12/17 05:39 Lab Statement: Any lab studies that have been ordered have been reviewed, and results considered in the medical decision making process. - Radiology CXR Radiology Interpretation Completed By: Radiologist - NO ACTIVE CARDIOPULMONARY DISEASE. ED physician has reviewed this radiology report and agrees. - EKG 0931 Cardiac Rate: Tachycardia - BPM 107 EKG Rhythm: Sinus Tachycardia EKG Interpretation: No ST elevation Chest Pain Course/Dx - Course Assessment/Plan: This patient is a 66 year old F BIBA to [facility] with a chief complaint of pressured CP since waking up 2 hours ago. The patient rates the pain 9/10 in severity. Symptoms aggravated by nothing. Symptoms alleviated by nothing. Patient reports chill, SOB, and headache. Patient denies fever, coughing, nausea, vomiting, and abdominal pain. An EKG reveals sinus tachycardia. CXR reveals NO ACTIVE CARDIOPULMONARY DISEASE. ED physician has reviewed this radiology report and agrees. Test results shows a WBC of 11.6, slight anemia which is chronic for her, sodium of 122, CRP of 14, and BNP of 370. Therefore, I believe the patients symptoms are due to COPD exacerbation and hyponatremia. In the ED course the patient was given IV fluids for the hyponatremia and Duoneb for COPD exacerbation. At this time I consulted Dr. Hubbard (hospitalist) at 1140 who agrees to admit. The patient is hemodynamically stable and alert and oriented x3. - Chest Pain Differential Diagnosis/HQI/PQRI: Lower Respiratory Infection, Other: - Asthma, COPD - Diagnoses Provider Diagnoses: COPD exacerbation, Hyponatremia - Provider Notifications Discussed Care Of Patient With: Kate Hubbard Time Discussed With Above Provider: 11:40 Instructed by Provider To: Other - Consulted Dr. Hubbard (hospitalist) at 1140 who agrees to admit. Discharge - Discharge Plan Condition: Stable Disposition: ADMITTED TO [facility] documentation as recorded by the Ayleen crawford Alfonso accurately reflects the service I personally performed and the decisions made by , Jonathan Cross MD.
[2017-03-12] MEDS: Mometasone 220 MCG MDI INH SCH (08:14)
[2017-03-12] MEDS ORDERED: DULoxetine DR CAP* 60 MG CAP.DR PO SCH (09:00)
[2017-03-12] MEDS ORDERED: amLODIPine TAB* 5 MG PO SCH (09:00)
[2017-03-12 10:53] LABS: Magnesium 1.8 mg/dL (1.9-2.7)
[2017-03-12] MEDS ORDERED: Potassium Chlor TAB* 20 MEQ TAB.ER PO SCH (11:00)
[2017-03-12] MEDS: predniSONE TAB* 20 MG PO SCH ×2 (11:02→11:13)
[2017-03-12] MEDS ORDERED: Magnesium Sulfate 1 GM IV* 1 GM/100 ML BAG IV ONE (11:11)
[2017-03-12] MEDS ORDERED: Regadenoson* 0.4 MG/5 ML SYRINGE ONE (12:25)
[2017-03-12] MEDS ORDERED: Aminophylline IV* 25 MG/ML 10 ML VIAL ONE (12:26)
--- NOTE | 2017-03-12 14:26 | ECHO ---
Patient: ELIUD UGALDE [facility] Rec#: [id number] : 1950 Date: 03/12/2017 Age: 66y Height: 152.4 cm / 60.0 in Weight: 47.63 kg / 105.0 lbs Sex: F BSA: 1.42 Room#: 451 Admit Date#: 03/11/2017 Type: Inpatient Referring: Hector Vázquez NP Reading: Kiki Bermudez MD Route Sales Person: Renate Junior RDCS CC: Guerrero Gtz NP Transthoracic Echocardiogram Indication: Chest Pain BP: 142/80 HR: 77 Rhythm: NSR Findings History: COPD,lung cancer s/p left upper lobectomy,PFO,HTN,HLD,hypothyroid,chronic pain,prior PE, smoker. Technical Comments: The study quality is good. Completed at 1039. Left Ventricle: The left ventricular chamber size is normal. Septal wall hypertrophy is observed. The left ventricle appears hyperdynamic. The estimated ejection fraction is greater than 65%. Abnormal left ventricular diastolic function is observed. Left Atrium: The left atrium is moderately dilated. Right Ventricle: The right ventricular cavity size is normal. The right ventricular global systolic function is normal. Right Atrium: The right atrial cavity size is normal. A patent foramen ovale is demonstrated by color Doppler. Aortic Valve: The aortic valve is trileaflet. There is no evidence of aortic valve thickening. There is trace to mild aortic regurgitation. There is no evidence of aortic stenosis. Mitral Valve: The mitral valve leaflets are mildly thickened. There is mild mitral regurgitation. There is no evidence of mitral stenosis. Tricuspid Valve: The tricuspid valve leaflets are normal. There is mild tricuspid regurgitation. No pulmonary hypertension is noted. There is no tricuspid stenosis. Pulmonic Valve: The pulmonic valve appears normal. There is no evidence of pulmonic regurgitation. There is no pulmonic stenosis. Pericardium: The pericardium appears normal. Aorta: There is no dilatation of the ascending aorta. There is no dilatation of the aortic arch. There is no dilation of the aortic root. Pulmonary Artery: The main pulmonary artery appears normal. Venous: The venous system is not well visualized. Summary: There are changes noted when compared to the previous study done on 07/28/2016, MR is now mild instead of moderate. Now there is no PHTN instead of moderate then. Conclusions The left ventricular chamber size is normal. Septal wall hypertrophy is observed. The left ventricle appears hyperdynamic. The estimated ejection fraction is greater than 65%. Abnormal left ventricular diastolic function is observed. The left atrium is moderately dilated. There is trace to mild aortic regurgitation. There is mild mitral regurgitation. There is mild tricuspid regurgitation. There are changes noted when compared to the previous study done on 07/28/2016, MR is now mild instead of moderate. Now there is no PHTN instead of moderate then. Measurements Name Value Normal Range RVIDd (AP) 2D 2.6 cm (0.9 - 2.6) RVDdMajor (2D) 2.8 cm (2.2 - 4.4) RAd ISD 4CH 4.2 cm (3.4 - 4.9) RA (A4C)W 3 cm (2.9 - 4.6) IVSd (2D) 1.2 cm (0.6 - 1) LVPWd (2D) 1 cm (0.6 - 1) LVIDd (2D) 3.6 cm (3.6 - 5.4) LVIDs (2D) 2.1 cm - LV FS (2D) 41 % (25 - 45) Aortic Annulus 1.8 cm (1.4 - 2.6) Ao root diameter (2D) 1.8 cm (2.1 - 3.5) Ascending Ao 2.1 cm (2.1 - 3.4) Aortic arch 2 cm (1.8 - 3.4) Descending Ao 0.5 cm - LA dimension (AP) 2D 4.1 cm (2.3 - 3.8) LAd ISD 4CH 4.9 cm (2.9 - 5.3) LA ISD 4CH W 4.7 cm (2.5 - 4.5) Name Value Normal Range LA ESV SP 4CH (A/L) 66 ml - LA ESV SP 2CH (A/L) 68 ml - LA ESV BP (A/L) 68 ml - LA ESV BP (A/L) index 47.97 ml/m2 - LA ESV SP 4CH (MOD) 64 ml - LA ESV SP 2CH (MOD) 68 ml - Name Value Normal Range MV E-wave Vmax 1 m/sec - MV deceleration time 192 msec - MV A-wave Vmax 1.3 m/sec - MV E:A ratio 0.76 ratio - LV septal e' Vmax 0.04 m/sec - LV lateral e' Vmax 0.04 m/sec - LV E:e' septal ratio 25 ratio - LV E:e' lateral ratio 25 ratio - Name Value Normal Range AV Vmax 1.8 m/sec - AV VTI 35.1 cm - AV peak gradient 13.48 mmHg - AV mean gradient 6.98 mmHg - LVOT Vmax 1.7 m/sec - LVOT VTI 25.53 cm - LVOT peak gradient 12.13 mmHg - LVOT mean gradient 5.04 mmHg - AR PHT 306 msec - AR peak gradient 59.54 mmHg - Name Value Normal Range TR Vmax 2.3 m/sec - TR peak gradient 21 mmHg - RAP 8 mmHg - RVSP 29 mmHg - Name Value Normal Range PV Vmax 0.9 m/sec - PV peak gradient 3.42 mmHg -
[2017-03-12] MEDS: Omeprazole CAP* 20 MG PO SCH (14:33)
[2017-03-12] MEDS: Metoprolol Tartrate TAB* 50 mg PO SCH (14:34)
--- NOTE | 2017-03-12 15:16 | RAD ---
HISTORY: Chest pain, hypertension, hyperlipidemia, COMPARISONS: None TECHNIQUE: A 1 day stress/rest myocardial perfusion study was performed, with pharmacologic stress. The stress portion was monitored by Dr. Bermudez. Gated SPECT imaging was performed, with CT-based attenuation correction DOSE: Stress: Technetium 99m tetrofosmin, 27.15 millicuries, injected at 1:52 PM on March 12, 2017 Rest: Technetium 99m tetrofosmin, 10.65 millicuries, injected at 7:42 AM on March 12, 2017 Pharmacologic agent: Lexiscan FINDINGS: CARDIAC MONITORING: No new ST changes with stress EF: 65 % TID: 1.05 MOTION: Normal motion, with normal wall thickening. PERFUSION: There is large fixed defect of the lateral wall with marginal reversibility OTHER: None IMPRESSION: THERE IS LARGE FIXED DEFECT OF THE LATERAL WALL SUGGESTIVE OF PREVIOUS INFARCT WITH MARGINAL REVERSIBILITY WHICH MAY BE MISREGISTRATION ARTIFACT OR MAY REFLECT MARGINAL ISCHEMIA ASSESSMENT: INTERMEDIATE RISK. Based on imaging criteria from ACC/AHA 2002. Guideline Update for the Management of Patient's with Chronic Stable Angina, table 23. Noninvasive Risk Stratification. CPT II Codes: 3594K4O
[2017-03-12 16:20] LABS: BUN/Creatinine Ratio 9.2 (8-20); Calcium 8.5 mg/dL (8.6-10.3); EGFR Non-African American 65.3 (>60); Potassium 3.4 mmol/L (3.5-5.0)
[2017-03-12 17:03] LABS: TSH (Thyroid Stimulating Horm) 0.5 mcIU/mL (0.34-5.60)
[2017-03-12 17:48] VITALS: BP 124/62
--- NOTE | 2017-03-13 03:03 | DS ---
DISCHARGE SUMMARY: DATE OF ADMISSION: 03/11/17 DATE OF DISCHARGE: 03/12/17 ADMITTING PROVIDER: Hector Vázquez NP ATTENDING PHYSICIAN: Sina Munguia MD PRIMARY CARE PROVIDER: Guerrero Gtz NP CHIEF COMPLAINT: Chest tightness, inability to take a deep breath. PRINCIPAL DIAGNOSES: 1. Anxiety. 2. Chronic obstructive pulmonary disease. SECONDARY DIAGNOSES: 1. Hyponatremia secondary to polydipsia. 2. Lung cancer, status post lobectomy. 3. Hypertension. 4. Hyperlipidemia. 5. Hypothyroidism with recently labile TSHs. 6. History of pulmonary embolism with recent cessation of anticoagulation after 3 months. 7. Anxiety. 8. Depression. HISTORY OF PRESENT ILLNESS AND HOSPITAL COURSE: Ms. Glover is a 66-year-old female with past medical history as above, who presented to the emergency room, having woken up from sleep feeling like she could not take a deep breath, felt like a cinder block was resting on her chest. These episodes happened intermittently and lasted for 3 hours prior to presentation. She normally works through these and they go away, sometimes these sensations are exertional. She denied any diaphoresis, fevers, chills, or coughing. She attest to significant stressors in her life including the loss of her and 2 adult sons in the last 5 years, lives alone and has periods of acute anxiety attacks. She is not currently taking anything for acute anxiety, although she does have prescription for Seroquel 200 mg q.h.s. for insomnia and duloxetine 60 mg for her anxiety or depression. The patient was admitted to the observation status overnight. Troponins were trended, which were negative 0.01 x3 though of note seemingly spurious 0.21 was recorded overnight at 5 p.m. on the date of admission, but down to 0.01 on recheck 1 hour later. EKGs do not show any ischemic changes. Because of the recent history of pulmonary embolism with recent cessation of anticoagulation, a CT chest angiogram was performed, which did not show any evidence of pulmonary embolism, which did demonstrate moderately severe emphysematous changes consistent with her COPD history. The patient was given dose of Solu-Medrol in the emergency room and then continued on prednisone on hospital day #2. She had a transthoracic echocardiogram, which showed preserved ejection fraction of 65% with abnormal left ventricular diastolic function compared to previous study on 02/28/17. Her mitral valve regurgitation improved from mild instead of moderate and there was no evidence of pulmonary hypertension. Upon admission her Sodium was 122, she was given 100 cc of normal saline overnight and sodium is improved to 126 and then 133. She was placed on a 1.2 L fluid restriction given history of reported polydipsia. She drinks at least 6 "Ice" beverages a day, totalling at least 2.5 L reportedly and has always consumed a lot of fluids. No history of alcohol use in the last few years she attest to. Course was also notable for hypokalemia(2.9) and hypomagnesemia (1.8) which were replaced. The patient also had a nuclear stress test performed, which was notable for a large fixed defect at the lateral wall suggestive of either previous infarct with marginal reversibility or artifact. The patient will instructed to follow up with Cardiology Dr. Jim as an outpatient. The patient was also given prescription for 0.25 mg Xanax q.8 hours p.r.n. for 21 tabs until she can follow up with her primary care provider, Guerrero Gtz NP, recommended followup next week. The patient attested that she would have large difficulties being compliant with fluid restriction, but was recommended strongly to at least limit to 1.8 L daily until can follow up with repeat BMP with PCP. MEDICATIONS UPON DISCHARGE: Include: 1. Alprazolam 0.25 mg p.o. q.8 hours p.r.n. for anxiety (new medication). 2. Tylenol 650 mg p.o. q.4 hours p.r.n. 3. Amlodipine 5 mg daily. 4. Quetiapine 200 mg p.o. q.h.s. 5. Omeprazole 40 mg p.o. b.i.d. 6. Flovent 1 puff inhaled b.i.d. 7. Metoprolol tartrate 50 mg p.o. b.i.d. 8. Levothyroxine 175 mcg p.o. daily. 9. Ipratropium 0.5 mg/2.5 mL nebulizer 4 q.i.d. p.r.n. 10. Duloxetine 60 mg p.o. daily. 11. Albuterol inhaler 2 puffs inhaled q.4 hours p.r.n. DISPOSITION: Home. DIET: 1.8 L fluid restriction. FOLLOWUP: Follow up with Guerrero Gtz in 3 to [address] Jim ( Cardiology) within 2 weeks. TIME SPENT ON DISCHARGE: 32 minutes. [id number]/[facility] #: [id number] NICOLE
== END 2017-03-12 18:00 | disposition home or self-care (01) ==
LOC: ED 09:20 → MEDTELE 11:43
PROVIDERS: ADMIT Internal Medicine; ATTEND Internal Medicine
DX: J44.9 Chronic obstructive pulmonary disease, unspecified (principal); R63.1 Polydipsia; E87.1 Hypo-osmolality and hyponatremia; I10 Essential (primary) hypertension; E78.5 Hyperlipidemia, unspecified; E03.9 Hypothyroidism, unspecified; Z90.2 Acquired absence of lung [part of]; F41.9 Anxiety disorder, unspecified; F32.9 Major depressive disorder, single episode, unspecified; Z88.6 Allergy status to analgesic agent; Z91.040 Latex allergy status; F17.200 Nicotine dependence, unspecified, uncomplicated; R00.0 Tachycardia, unspecified; G89.29 Other chronic pain; Z86.711 Personal history of pulmonary embolism; Z79.01 Long term (current) use of anticoagulants; Z85.118 Personal history of other malignant neoplasm of bronchus and lung
CPT/HCPCS: 36415; 71020; 71275; 78452; 80048; 80053; 82550; 83605; 83735; 83880; 84443; 84484; 85025; 85379; 86140; 87040; 87502; 93005; 93017; 93306; 94640; 94760; 96374; 96375; 99284; 99406; A9270-GY; A9502; G0378; J0280; J1644; J2060; J2785; J2930; J3475; J7512; Q9967

== ENCOUNTER 2017-03-19 21:02 | Observation (INO) | payer BC, MEDICARE ==
[2017-03-19 21:39] LABS: Hematocrit 34 % (35-47); Hemoglobin 11.3 g/dl (12.0-16.0); Mean Corpuscular HGB Conc 33 g/dl (31-36); Mean Corpuscular Hemoglobin 30 pg (27-31); Mean Corpuscular Volume 92 fL (80-97); Mean Platelet Volume 8 um3 (7.4-10.4); Red Blood Count 3.75 10^6/ul (4.0-5.4); Red Cell Distribution Width 17 % (10.5-15)
[2017-03-19 21:54] LABS: ALT 13 U/L (7-52); AST 22 U/L (13-39); Albumin 4.2 g/dL (3.2-5.2); Alkaline Phosphatase 72 U/L (34-104); Anion Gap 11 mmol/L (2-11); BUN/Creatinine Ratio 17.4 (8-20); Blood Urea Nitrogen 15 mg/dL (6-24); CO2 Carbon Dioxide 20 mmol/L (22-32); Calcium 9.6 mg/dL (8.6-10.3); Chloride 102 mmol/L (101-111); EGFR African American 85.2 (>60); EGFR Non-African American 66.2 (>60); Globulin 3.1 g/dL (2-4); Glucose 85 mg/dL (70-100); Lipase 27 U/L (11.0-82.0); Potassium 3.8 mmol/L (3.5-5.0); Sodium 133 mmol/L (133-145); Total Protein 7.3 g/dL (6.4-8.9)
[2017-03-19 21:57] LABS: Troponin I 0.02 ng/mL (<0.04)
[2017-03-19 22:23] LABS: Urine Bacteria 1+ (Absent); Urine Bilirubin Negative (Negative); Urine Glucose Negative (Negative); Urine Nitrite Negative (Negative)
[2017-03-19 22:29] LABS: Alcohol < 10 mg/dL (<10)
[2017-03-19 22:33] LABS: Benzodiazepine Urine Screen None Detected (None Detect)
[2017-03-20] MEDS ORDERED: Acetaminophen TAB* 325 MG PO PRN (00:54)
[2017-03-20] MEDS ORDERED: Ipratropium 0.5MG/2.5ML NEB* 0.5 MG/2.5 ML NEB.SOLN INH PRN (00:54)
[2017-03-20] MEDS ORDERED: Albuterol HFA INHALER* 8 gm MDI INH PRN (00:54)
[2017-03-20] MEDS ORDERED: Iohexol 350* (CONTRAST) 500 ML MDV IV ONE (00:56)
[2017-03-20] MEDS ORDERED: Enoxaparin(*) 40 MG/0.4 ML SYR SUBCUT SCH (01:00)
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
[2017-03-20] MEDS ORDERED: Aspirin EC Low Dose* 81 MG TAB.EC PO SCH (02:00)
[2017-03-20 05:40] LABS: Hematocrit 29 % (35-47); Hemoglobin 9.8 g/dl (12.0-16.0); Mean Corpuscular HGB Conc 33 g/dl (31-36); Mean Corpuscular Hemoglobin 31 pg (27-31); Mean Corpuscular Volume 92 fL (80-97); Mean Platelet Volume 8 um3 (7.4-10.4); Red Blood Count 3.19 10^6/ul (4.0-5.4); Red Cell Distribution Width 17 % (10.5-15); White Blood Count 8.2 10^3/ul (3.5-10.8)
[2017-03-20 05:51] LABS: BUN/Creatinine Ratio 15.3 (8-20); Calcium 8.4 mg/dL (8.6-10.3); EGFR African American 73.3 (>60); Potassium 3.6 mmol/L (3.5-5.0)
[2017-03-20] MEDS ORDERED: Levothyroxine TAB* 175 MCG TAB PO SCH (06:00)
[2017-03-20 06:58] LABS: TSH (Thyroid Stimulating Horm) 15.67 mcIU/mL (0.34-5.60)
[2017-03-20] MEDS ORDERED: Metoprolol Tartrate TAB* 50 mg PO SCH ×2 (09:00)
[2017-03-20] MEDS ORDERED: Omeprazole CAP* 20 MG PO SCH (09:00)
[2017-03-20] MEDS ORDERED: amLODIPine TAB* 5 MG PO SCH (09:00)
[2017-03-20] MEDS ORDERED: DULoxetine DR CAP* 60 MG CAP.DR PO SCH (09:00)
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
--- NOTE | 2017-03-20 09:29 | RAD ---
INDICATION: Garbled speech COMPARISON: Chest x-ray March 11, 2017 TECHNIQUE: Single AP portable view of the chest was obtained. FINDINGS: Image quality is compromised due to the relative inferiority of a portable chest x-ray. The heart and mediastinum exhibit normal size and contour. Postsurgical changes include surgical clips overlying the left upper mediastinum. The lungs are grossly clear. There is no evidence of a large pleural effusion. Visualized bones are normal for the patient's age. IMPRESSION: No radiographic evidence for acute cardiopulmonary abnormality on this portable chest x-ray.
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
--- NOTE | 2017-03-20 11:05 | RAD ---
CPT II: CPT II Codes: 3100F INDICATION: Slurred speech COMPARISON: CT brain dated March 19, 2017 that does not show any acute intracranial abnormalities. TECHNIQUE: A CT angiogram of the head and neck was performed with 80 cc of Omnipaque 350. Contiguous axial sections were obtained from the thoracic inlet through the solomon of [place]. Images were reconstructed in the sagittal, coronal planes and in a 3-D volume rendered format. The distal cervical internal carotid artery diameter is used as the denominater for stenosis measurement. CTA NECK: The common and internal carotid arteries are patent without hemodynamically significant stenosis. Right: Immediately below the carotid bifurcation, the common carotid artery measures 8 mm in diameter. There is coarsely calcified atherosclerosis at the carotid bulb narrowing the lumen to 4 mm. This yields at least 50% degree stenosis of the carotid bulb. The right internal carotid artery is tortuous but appears to be patent. Left: Below the carotid bifurcation the common carotid artery measures 7 mm in short axis diameter. Mixed attenuation atherosclerosis at the carotid bulb narrows the short axis diameter to 4 mm. This yields approximately 43% degree stenosis. The right vertebral artery is dominant. CTA of the brain: At the right cavernous carotid artery (axial image 156 of series 4) there is a 2 mm projection of the artery laterally. There is coarse atherosclerotic calcification of the bilateral petrous carotid arteries. Otherwise the internal carotid, anterior and middle cerebral arteries appear are patent without high grade stenosis or occlusion. The vertebral, basilar and posterior cerebral arteries appear patent without high grade stenosis or occlusion. The solomon of [place] is complete with bilateral posterior communicating arteries identified. No focal luminal filling defect, aneurysm or vascular malformation is seen. NON-ARTERIAL FINDINGS: Diffuse centrilobular emphysematous changes of the lungs are seen bilaterally. IMPRESSION: 1. Widespread mixed attenuation atherosclerosis including the carotid bulbs causing approximately 50% degree stenosis at the right and 43% degree stenosis AT the left. If clinically warranted further characterization could BE made with nonemergent ultrasound of the carotid arteries to determine flow velocities. 2. Potential 2 mm laterally projecting aneurysm from the right petrous carotid artery. 3. Otherwise there are no acute arterial abnormalities of the head or neck.
[2017-03-20] MEDS ORDERED: Ondansetron INJ* 2 MG/ML VIAL IV PRN (11:18)
[2017-03-20 13:05] LABS: Hematocrit 33 % (35-47); Hemoglobin 10.3 g/dl (12.0-16.0)
[2017-03-20] MEDS ORDERED: traMADol TAB* 50 MG PO PRN ×2 (13:11)
[2017-03-20 16:08] VITALS: BP 109/56
[2017-03-20] MEDS ORDERED: Mometasone 220 MCG MDI INH SCH (21:00)
[2017-03-20] MEDS ORDERED: QUEtiapine TAB* 100 MG PO SCH (21:00)
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
== END 2017-03-20 17:20 | disposition home or self-care (01) ==
LOC: ED 21:02 → MEDTELE 03-20 00:51
PROVIDERS: ADMIT Internal Medicine; ATTEND Internal Medicine
DX: R41.82 Altered mental status, unspecified (principal); S06.0X0A Concussion without loss of consciousness, initial encounter; V43.52XA Car driver injured in collision with other type car in traffic accident, initial encounter; Y92.410 Unspecified street and highway as the place of occurrence of the external cause; R51 Headache; J44.9 Chronic obstructive pulmonary disease, unspecified; F41.9 Anxiety disorder, unspecified; Q21.1 Atrial septal defect; E03.9 Hypothyroidism, unspecified; I10 Essential (primary) hypertension; E78.5 Hyperlipidemia, unspecified; Z86.711 Personal history of pulmonary embolism; Z85.118 Personal history of other malignant neoplasm of bronchus and lung; G89.29 Other chronic pain; Z79.899 Other long term (current) drug therapy; F17.210 Nicotine dependence, cigarettes, uncomplicated; Z88.8 Allergy status to other drugs, medicaments and biological substances; R94.31 Abnormal electrocardiogram [ECG] [EKG]
CPT/HCPCS: 36415; 70450; 70496; 70498; 71010; 72125; 80048; 80053; 80307; 80320; 81003; 81015; 83690; 84443; 84484; 85014; 85018; 85025; 85610; 87086; 93005; 96372; 96374; 99291; A9270-GY; G0378; G0480; J1650; J2405; Q9967

== ENCOUNTER 2017-05-01 18:25 | Inpatient (IN) | payer MEDICARE ==
[2017-05-01] MEDS: NS 0.9% 1000 ML* 1,000 ML IV SCH (18:56)
[2017-05-01 19:21] LABS: Albumin 3.8 g/dL (3.2-5.2); BUN/Creatinine Ratio 17.2 (8-20); C Reactive Protein 15.3 mg/L (< 5.00); Calcium 8.7 mg/dL (8.6-10.3); EGFR African American 77.8 (>60); EGFR Non-African American 60.5 (>60); Globulin 2.7 g/dL (2-4); Potassium 3.7 mmol/L (3.5-5.0); Total Bilirubin 0.4 mg/dL (0.2-1.0); Total Protein 6.5 g/dL (6.4-8.9)
[2017-05-01 19:26] LABS: Troponin I 1.21 ng/mL (<0.04)
--- NOTE | 2017-05-01 19:26 | RAD ---
INDICATION: Left hand weakness COMPARISON: Most recent CT of the brain is dated March 19, 2017 TECHNIQUE: Contiguous axial sections of the brain were obtained from the skull base to the vertex without contrast. FINDINGS: The ventricles, cisterns and sulci are within normal limits. There is mild periventricular and subcortical white matter hypoattenuation most consistent with chronic microvascular disease, similar in appearance to the prior head CT. The sadler-white matter differentiation is adequately maintained and there is no sulcal effacement. No significant focal abnormality or mass effect is present. There is no evidence for intracranial hemorrhage. There is a stable calcified meningioma adjacent to the falx cerebra. No significant focal osseous abnormality is present. Probably secretions are partially visualized in the left greater than right maxillary sinus. IMPRESSION: 1. Appearance of chronic microvascular disease is not significantly changed since the most recent CT of the brain dated March 19, 2017. 2. Paranasal sinus mucosal disease incidentally noted.
[2017-05-01 19:28] LABS: Hematocrit 33 % (35-47); Hemoglobin 10.9 g/dl (12.0-16.0); Mean Corpuscular HGB Conc 34 g/dl (31-36); Mean Corpuscular Hemoglobin 31 pg (27-31); Mean Corpuscular Volume 91 fL (80-97); Mean Platelet Volume 8 um3 (7.4-10.4); Red Blood Count 3.57 10^6/ul (4.0-5.4); Red Cell Distribution Width 17 % (10.5-15); White Blood Count 8.9 10^3/ul (3.5-10.8)
[2017-05-01 19:43] LABS: TSH (Thyroid Stimulating Horm) 8.14 mcIU/mL (0.34-5.60)
[2017-05-01] MEDS ORDERED: Clopidogrel TAB* 300 MG PO ONE (20:18)
[2017-05-01] MEDS ORDERED: Heparin DRIP 25,000 UNITS(*) 25,000 UNITS/500 ML BAG IVPB SCH (20:30)
[2017-05-01] MEDS ORDERED: Heparin VIAL(*) 5000 UNITS/ML VIAL (FIVE THOUSAND) IV SCH ×2 (21:00→22:00)
[2017-05-01] MEDS ORDERED: Ipratropium 0.5MG/2.5ML NEB* 0.5 MG/2.5 ML NEB.SOLN INH PRN (21:17)
[2017-05-01] MEDS ORDERED: Albuterol 2.5 MG/3 ML NEB.SOL* (0.083%) INH PRN (21:17)
[2017-05-01] MEDS ORDERED: Acetaminophen TAB* 325 MG PO PRN (21:18)
[2017-05-01] MEDS ORDERED: NS 0.9% 1000 ML* 1,000 ML IV SCH (22:30)
[2017-05-01] MEDS: Heparin DRIP 25,000 UNITS(*) 25,000 UNITS/500 ML BAG IV SCH (22:30)
[2017-05-02] MEDS: NS 0.9% 1000 ML* 1,000 ML IV SCH (00:25)
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
[2017-05-02 04:31] LABS: Benzodiazepine Urine Screen None Detected (None Detect)
[2017-05-02 04:58] LABS: Hematocrit 28 % (35-47); Hemoglobin 9.1 g/dl (12.0-16.0); Mean Corpuscular HGB Conc 33 g/dl (31-36); Mean Corpuscular Hemoglobin 31 pg (27-31); Mean Corpuscular Volume 94 fL (80-97); Mean Platelet Volume 8 um3 (7.4-10.4); Red Blood Count 2.97 10^6/ul (4.0-5.4); Red Cell Distribution Width 17 % (10.5-15); White Blood Count 5.9 10^3/ul (3.5-10.8)
[2017-05-02] MEDS ORDERED: Levothyroxine TAB* 150 MCG TAB PO SCH (06:00)
[2017-05-02 06:23] LABS: BUN/Creatinine Ratio 15.7 (8-20); Calcium 7.7 mg/dL (8.6-10.3); EGFR African American 81.9 (>60); EGFR Non-African American 63.7 (>60); HDL Cholesterol 85.1 mg/dL; Potassium 3.2 mmol/L (3.5-5.0)
[2017-05-02 06:40] LABS: Troponin I 1.36 ng/mL (<0.04)
--- NOTE | 2017-05-02 08:43 | PN ---
Subjective Date of Service: 05/02/17 Interval History: No subj change. L arm motionless but not numb. Objective Active Medications: Acetaminophen (Tylenol Tab*) 650 mg PO Q4H PRN PRN Reason: FEVER/PAIN Albuterol (Ventolin 2.5 Mg/3 Ml Neb.Tracey*) 2.5 mg INH Q4H PRN PRN Reason: SOB/WHEEZING Albuterol (Ventolin Hfa Inhaler*) 2 puff INH Q4H PRN PRN Reason: SOB/WHEEZING Clopidogrel Bisulfate (Plavix Tab*) 75 mg PO DAILY [facility] Duloxetine HCl (Cymbalta Cap*) 60 mg PO DAILY [facility] Sodium Chloride (Ns 0.9% 1000 Ml*) 1,000 mls @ 150 mls/hr IV PER RATE [facility] Last Admin: 05/02/17 00:25 Dose: 150 mls/hr Heparin Sodium/Dextrose (Heparin Drip 25,000 Units(*)) 25,000 units in 500 mls @ 0 mls/hr IV .NO BOLUSES PROTOCOL RAMSES; Per Protocol PRN Reason: Protocol Last Admin: 05/01/17 22:30 Dose: 15 mls/hr Sodium Chloride (Ns 0.9% 1000 Ml*) 1,000 mls @ 75 mls/hr IV PER RATE [facility] Last Admin: 05/02/17 06:42 Dose: 75 mls/hr Ipratropium [place] (Atrovent 0.5 Mg Neb.Tracey*) 0.5 mg INH QID PRN PRN Reason: SOB/WHEEZING Levothyroxine Sodium (Synthroid Tab*) 150 mcg PO DAILY@0600 [facility] Last Admin: 05/02/17 05:37 Dose: 150 mcg Metoprolol Tartrate (Lopressor Tab*) 50 mg PO DAILY [facility] Mometasone Furoate (Asmanex 220 Mcg Mdi *) 2 puff INH QPM [facility] Pantoprazole Sodium (Protonix Tab (Nf)) 40 mg PO BID [facility] Potassium Chloride (Klor-Con Liquid*) 40 meq PO ED ONCE STA Stop: 05/02/17 08:29 Quetiapine Fumarate (Seroquel Tab*) 200 mg PO BEDTIME [facility] Vital Signs 05/01/17 05/01/17 05/01/17 21:00 21:15 21:30 Temperature Pulse Rate 95 102 Respiratory Rate Blood Pressure 160/90 151/96 150/83 (mmHg) O2 Sat by Pulse 95 95 Oximetry 05/01/17 05/01/17 05/01/17 21:45 22:00 22:35 Temperature 98.7 F Pulse Rate Respiratory Rate Blood Pressure 131/83 115/69 (mmHg) O2 Sat by Pulse Oximetry 05/01/17 05/02/17 05/02/17 22:45 03:44 07:28 Temperature 99.7 F 98.0 F 98.2 F Pulse Rate 108 102 92 Respiratory 18 20 20 Rate Blood Pressure 132/74 144/87 147/84 (mmHg) O2 Sat by Pulse 94 97 99 Oximetry 05/02/17 08:18 Temperature Pulse Rate Respiratory 16 Rate Blood Pressure (mmHg) O2 Sat by Pulse Oximetry Oxygen Devices in Use Now: None Appearance: Alert, partly up in bed. In good spirits. Looks comfortable. Eyes: No Scleral Icterus Neck: NL Appearance and Movements; NL JVP, No Thyroid Enlargement, Masses Respiratory: Symmetrical Chest Expansion and Respiratory Effort, Clear to Auscultation, Clear to Percussion Cardiovascular: RRR, No Edema, - - 1-2/6 systolic murmur Extremities: No Edema, No Clubbing, Cyanosis, - Skin: No Rash or Ulcers, No Nodules or Sclerosis, - Neurological: Alert and Oriented x 3, NL Sensation - Nl 2-point discrimination L arm. L hand and L wrist 0/5. L shoulder 2-3/5 Result Diagrams: 05/02/17 04:48 05/02/17 05:17 Assess/Plan/Problems-Billing Assessment: - Patient Problems (1) ACS (acute coronary syndrome) Current Visit: Yes Status: Acute Code(s): I24.9 - ACUTE ISCHEMIC HEART DISEASE, UNSPECIFIED SNOMED Code(s): 190328257 Comment: Continue heparin, clopidogrel (allergic to ASA). Echo pending 05/02. Dr. Rain to consult. (2) Tobacco abuse Current Visit: No Status: Acute Code(s): Z72.0 - TOBACCO USE SNOMED Code(s ): 991854922 Comment: Pt advised to quit smoking and avoid second hand smoke. (3) History of lung cancer Current Visit: No Status: Acute Code(s): Z85.118 - PERSONAL HISTORY OF MALIGNANT NEOPLASM OF BRONCHUS AND LUNG SNOMED Code(s): 190940493 Comment: Surgery and chemo about 4 yrs ago. Non-small cell. (4) Hypothyroidism Current Visit: No Status: Chronic Code(s): E03.9 - HYPOTHYROIDISM, UNSPECIFIED SNOMED Code(s): 55131832 Comment: Pt states she has take 150 mcg levothyroxine for the past 3 months, but has taken many other doses at other times. Increase to 175 mcg start 05/02 with extra 25 mcg. (5) Hyponatremia Current Visit: No Status: Chronic Code(s): E87.1 - HYPO-OSMOLALITY AND HYPONATREMIA SNOMED Code(s): 39391766 Comment: Pt states she likes drinking water, states she drinks about 2200- 2300 ml per day at home. Fluid restriction changed to 2000 ml/day. BMP 05/03. (6) GERD (gastroesophageal reflux disease) Current Visit: No Status: Chronic Code(s): K21.9 - GASTRO-ESOPHAGEAL REFLUX DISEASE WITHOUT ESOPHAGITIS SNOMED Code(s): 567422170 Comment: Continue omeprazole, change to 20 mg bid. (7) Hypertension Current Visit: No Status: Chronic Code(s): I10 - ESSENTIAL (PRIMARY) HYPERTENSION SNOMED Code(s): 36224298 Comment: Normotensive Continue home metoprolol dose. ? took amlodipine at home.
[2017-05-02] MEDS ORDERED: CMCS:Pantoprazole TAB (NF) 40 MG TAB PO SCH (09:00)
[2017-05-02] MEDS ORDERED: Potassium Chloride LIQUID* 20 MEQ PACKET PO SCH (09:00)
[2017-05-02] MEDS ORDERED: Metoprolol Tartrate TAB* 50 mg PO SCH (09:00)
[2017-05-02] MEDS ORDERED: Levothyroxine TAB* 25 MCG TAB PO ONE (09:07)
[2017-05-02] MEDS: HYDROcodone/ACETAMIN 5-325 MG* 1 TAB PO PRN ×3 (09:11→20:42)
[2017-05-02] MEDS: DULoxetine DR CAP* 60 MG CAP.DR PO SCH (09:11)
[2017-05-02] MEDS: Clopidogrel TAB* 75 MG PO SCH (09:11)
[2017-05-02] MEDS ORDERED: Levothyroxine TAB* 25 MCG TAB ONE (09:17)
[2017-05-02] MEDS: Albuterol HFA INHALER* 8 gm MDI INH PRN ×2 (11:04→19:28)
[2017-05-02] MEDS ORDERED: Iohexol 300* (CONTRAST) 10 ML SDV IV SCH (13:16)
--- NOTE | 2017-05-02 13:56 | RAD ---
INDICATION: "Pancoast". Relevant surgical history includes a left upper lobectomy September 2012. COMPARISON: Most recent comparison study is a CTA of the chest dated March 11, 2017 TECHNIQUE: Axial source images of the chest were acquired before and after the injection of 80 mL Omnipaque 300 intravenous contrast from just above the lung apices to the base of the diaphragm. Coronal and sagittal reconstructed images were acquired. FINDINGS: Consistent with the patient's reported surgical history there are surgical clips at the left upper lobe bronchus consistent with a lobectomy. The remaining lungs exhibit groundglass opacification. At the remaining left lobe there is a 4 mm pulmonary nodule There is a small left and trace right pleural effusion. The heart is normal in size. There is no evidence of pericardial effusion. There is no evidence of aortic aneurysm or dissection. Mediastinal lymph nodes are noted and exhibit enhancement but are not pathologically enlarged. Overlying the lateral aspect of the left breast is an asymmetric soft tissue density measuring 3.1 x 3.8 cm. The osseous structures appear normal. Limited views of the upper abdomen show no abnormalities. IMPRESSION: 1. Interval increase and small bibasilar pleural effusions. 2. In the left breast there is an asymmetric soft tissue density measuring 3.8 cm in greatest axial dimension. This finding has not changed significantly when compared to the March 11, 2017 and October 18, 2016 CT of the chest. Please correlate to physical examination. 3. In the remaining left lobe there is a 4 mm pulmonary nodule that was not device seen in the 2 previous chest CTs of uncertain clinical significance. Considering the patient's oncologic history follow-up imaging in 6 months is appropriate.
[2017-05-02] MEDS: Potassium Chlor TAB* 20 MEQ TAB.ER PO SCH ×2 (13:57→20:42)
--- NOTE | 2017-05-02 15:05 | ECHO ---
Patient: ELIUD UGALDE [facility] Rec#: [id number] : 1950 Date: 05/02/2017 Age: 66y Height: 152.4 cm / 60.0 in Weight: 46.27 kg / 102.0 lbs Sex: F BSA: 1.4 Room#: [facility] Admit Date#: 05/01/2017 Type: Inpatient Referring: Tania Gupta Reading: Dutch Rain MD Safety Consultant: Chrissy Pitt RDCS CC: Guerrero Gtz, MILTON Transthoracic Echocardiogram Indication: NSTEMI BP: 144/87 HR: 63 Rhythm: NSR Findings History: COPD, lung cancer, s/p lung resection, smoker, PFO, HTN, HLD, PE. Technical Comments: The study quality is good. Completed at 1245. Left Ventricle: The left ventricular chamber size is normal. Mild concentric left ventricular hypertrophy is observed. There is increased basal septal hypertrophy noted without evidence of an increased gradient across the left ventricular outflow tract. Global left ventricular wall motion and contractility are within normal limits. There is normal left ventricular systolic function. The estimated ejection fraction is 55-60%. closer to 60% with relative hypokinesis of the mid to basal inferior segments. There is no consistent Doppler evidence of clinically significant diastolic dysfunction. Abnormal left ventricular diastolic filling is observed, consistent with impaired relaxation. The basal inferolateral, basal inferior, and mid inferior wall segments are hypokinetic (score 2). Overall wallmotion score index is 1.19 Left Atrium: The left atrium is severely dilated. Right Ventricle: Moderator Band present. The right ventricular cavity size is normal. The right ventricular global systolic function is low normal. Right Atrium: The right atrium is mildly dilated. A patent foramen ovale is visualized. A patent foramen ovale is demonstrated by color Doppler. Aortic Valve: The aortic valve is trileaflet. The aortic valve leaflets are mildly thickened. Systolic excursion of the left coronary cusp is reduced. There is trace to mild aortic regurgitation. There is no evidence of aortic stenosis. Mitral Valve: There is posterior mitral annular calcification. The mitral valve leaflets are mildly thickened. Mitral valve posterior leaflet calcification is visualized. There is mild mitral regurgitation. There is no evidence of mitral stenosis. Tricuspid Valve: The tricuspid valve leaflets are normal. There is mild tricuspid regurgitation. The right ventricular systolic pressure is estimated at 32 mmHg. There is evidence that pulmonary hypertension may be underestimated. There is no tricuspid stenosis. Pulmonic Valve: The pulmonic valve appears normal. There is a trace pulmonic regurgitation. There is no pulmonic stenosis. Pericardium: There is no significant pericardial effusion. Aorta: There is mild dilatation of the ascending aorta. The aortic arch is not well visualized. The aortic root is normal in size. Pulmonary Artery: The main pulmonary artery appears normal. Venous: The inferior vena cava appears normal in size. There is an approximate 50% respiratory change in the inferior vena cava dimension. Conclusions Mild concentric left ventricular hypertrophy is observed. There is increased basal septal hypertrophy noted without evidence of an increased gradient across the left ventricular outflow tract. The estimated ejection fraction is 55-60%, closer to 60% with relative hypokinesis of the mid to basal inferior segments. Abnormal left ventricular diastolic filling is observed, consistent with impaired relaxation. The left atrium is severely dilated. The right ventricular global systolic function is low normal. The right atrium is mildly dilated. A patent foramen ovale is demonstrated by color Doppler. The aortic valve leaflets are mildly thickened. Systolic excursion of the left coronary cusp is reduced. There is trace to mild aortic regurgitation. The mitral valve leaflets are mildly thickened. Mitral valve posterior leaflet calcification is visualized. There is mild mitral regurgitation. There is posterior mitral annular calcification. There is mild tricuspid regurgitation. The right ventricular systolic pressure is estimated at 32 mmHg. There is mild dilatation of the ascending aorta. The inferior hypokinesis is new and the EF has decreased from Greater Than 65% to 55-60%. (The inferior hypokinesis was less pronounced last time by direct visual comparison) Measurements Name Value Normal Range RVIDd (AP) 2D 3.3 cm (0.9 - 2.6) RVDdMajor (2D) 4 cm (2.2 - 4.4) RAd ISD 4CH 5.2 cm (3.4 - 4.9) RA (A4C)W 4.2 cm (2.9 - 4.6) IVSd (2D) 1.3 cm (0.6 - 1) LVPWd (2D) 1.2 cm (0.6 - 1) LVIDd (2D) 3.6 cm (3.6 - 5.4) LVIDs (2D) 2.8 cm - LV FS (2D) 24 % (25 - 45) Aortic Annulus 2.1 cm (1.4 - 2.6) Ao root diameter (2D) 3 cm (2.1 - 3.5) Ascending Ao 3.5 cm (2.1 - 3.4) LA dimension (AP) 2D 4.4 cm (2.3 - 3.8) LAd ISD 4CH 6 cm (2.9 - 5.3) LA ISD 4CH W 4.9 cm (2.5 - 4.5) Name Value Normal Range LA ESV SP 4CH (A/L) 86 ml - LA ESV SP 2CH (A/L) 76 ml - LA ESV BP (A/L) 85 ml - LA ESV BP (A/L) index 61 ml/m2 - LA ESV SP 4CH (MOD) 83 ml - LA ESV SP 2CH (MOD) 70 ml - Name Value Normal Range MV E-wave Vmax 1.22 m/sec - MV deceleration time 163.61 msec - MV A-wave Vmax 0.9 m/sec - MV E:A ratio 1.3 ratio - LV septal e' Vmax 0.04 m/sec - LV lateral e' Vmax 0.08 m/sec - LV E:e' septal ratio 30.5 ratio - LV E:e' lateral ratio 15.25 ratio - Name Value Normal Range AV Vmax 1.13 m/sec - AV VTI 28.23 cm - AV peak gradient 5.11 mmHg - AV mean gradient 6.53 mmHg - LVOT Vmax 1.04 m/sec - LVOT VTI 22.4 cm - LVOT peak gradient 4.38 mmHg - LVOT mean gradient 2.97 mmHg - AR PHT 631.2 msec - AR peak gradient 73.8 mmHg - Name Value Normal Range TR Vmax 2.7 m/sec - TR peak gradient 29 mmHg - RAP 3 mmHg - RVSP 32 mmHg - IVC diameter 1.6 cm - Name Value Normal Range PV Vmax 0.81 m/sec - PV peak gradient 2.6 mmHg - Wallmotion BAS Normal BA Normal BAL Normal KRISTINE Hypokinetic BI Hypokinetic BIS Normal MAS Normal MA Normal MAL Normal MIL Normal TN Hypokinetic MIS Normal Normal AA Normal AL Normal AI Normal APEX Normal
--- NOTE | 2017-05-02 15:13 | CONS ---
CC: Guerrero Gtz NP * NEUROLOGY CONSULTATION: DATE OF CONSULT: 05/02/17 LOCATION: She is an inpatient in room 445. REFERRING PHYSICIAN: Chrissy Pace NP REASON FOR CONSULT: Left arm weakness. HISTORY OF PRESENT ILLNESS: Jessi Glover is a 66-year-old right-handed woman who woke up yesterday when a friend or neighbor came over around 2-2:30 in the afternoon, because she was not answering her phone when her daughter tried to call her. She went to bed at something like 10 in the evening and slept on the sofa. She remembers going to bed and she said she did not take anything sedating and did not have any alcohol. When her friend came to wake her up at 2:30, she had been asleep for close to 14 hours. She immediately noted weakness of her left arm. There was some tingling and numbness in the left hand up to above the proximal forearm, but there is no pain. She does not notice any weakness or numbness of her face or her legs. She felt a little bit unsteady, but no difficulty walking otherwise and specifically no left lower extremity symptoms. There was no change in vision, but she notes that her left eyelid tends to be drooping, which she says was not previously. She has not noticed any change in vision or headaches, however. Prior to yesterday, she felt perfectly fine without any new symptoms. There is no prior history of cerebrovascular disease. She does have a history of alcoholism, but she said she has had perhaps 1 drink in the last 5 years. She does take Seroquel at bedtime, but no other sedatives. PAST MEDICAL HISTORY: Notable for lung carcinoma treated with upper left lung resection in 2013 and followed by chemotherapy. There is apparently a history of opioid abuse and Chrissy Pace's admission note indicates that her daughter said she continues to buy [place]. She has a past history of COPD, ongoing tobacco use, anxiety disorder, hypothyroidism, hypertension, hyperlipidemia, pulmonary embolus, chronic hyponatremia. MEDICATIONS: At the time of admission consist of: 1. Seroquel 200 to 300 mg p.o. q.h.s. 2. Omeprazole 40 mg p.o. daily. 3. Metoprolol 50 mg p.o. daily. 4. Levothyroxine 150 mcg p.o. daily. 5. Cymbalta 60 mg p.o. daily. 6. Amlodipine 5 mg p.o. daily. 7. Multiple inhalers. ALLERGIES: She is allergic to ASPIRIN and also to LATEX. FAMILY HISTORY: Negative for neuromuscular disorders. SOCIAL HISTORY: She still smokes half a pack of cigarettes per day, she said she has had 1 alcoholic beverage in the last 5 years. REVIEW OF SYSTEMS: Negative for increased shortness of breath or chest pain. No headaches. No recent falls. No abdominal pain, no change in vision. Other than the numbness in her left distal upper extremity, she notes no new numbness. She has chronic foot deformities, but no numbness in her feet. She has not had any recent fevers. She has a chronic cough. She says her weight has been pretty stable. PHYSICAL EXAMINATION: She is afebrile, temperature 98.2 orally last measured; blood pressure running in the 140s/70s to 80s diastolic; pulses in the 90s, it seems regular; respiratory rate 20; oxygen saturation is 97% on room air. Lungs revealed diffuse scattered wheezes. Heart seems to be in a regular rhythm with a grade 2/6 early systolic murmur, left lower sternal border. Carotid pulses are symmetrical and there are no cervical or supraclavicular bruits. There are no supraclavicular masses. Neck range of motion is somewhat limited but not painful. She has marked equinovarus deformities of her feet. Neurologically, the left pupil is 1 mm smaller than the right in dim room light and both constrict by about 1 mm with the left remaining smaller. She has non- fatigable ptosis of the left eye, but not on the right. Eye movements are normal as are visual barron. Facial musculature is symmetric and facial sensation to temperature, pin, and light touch are all symmetric. Her tongue protrudes in the midline and palate rises symmetrically and there is no dysarthria. She is a little hard of hearing. Sensory exam, there is vibratory loss in the toes, but otherwise normal proprioception, light touch, and sharp dull indiscrimination in the lower extremities and in the upper extremities. On motor exam, there is no spasticity in the limbs. She has normal strength proximally and distally in the right upper extremity other than mild dorsal interossei weakness. In the lower extremities, she has toe dorsiflexor weakness but otherwise good strength proximally in the lower extremities. Left upper extremity, she has grade 4- deltoid weakness, grade 4- biceps weakness, grade 4- triceps weakness, 0 wrist extensor strength, 0 wrist flexor strength, 0 finger flexor and finger extensor strength. Reflexes are normal at the biceps, triceps, and brachioradialis bilaterally. They are brisk at the knees and trace at the ankles. Plantar responses, extensor on the left and equivocal on the right. DIAGNOSTIC STUDIES/LAB DATA: Laboratory data includes a CT of the brain which I reviewed reveals chronic ischemic changes a little more in the right hemisphere than the left. Compared to her prior scan from last February, it looks about the same. Other laboratory studies notable for sodium of 131, it was 125 last evening when she came in. CO2 is 21 today. Potassium 3.2, it was 3.7 yesterday evening when she came in. The rest of the chemistry profile was fairly unremarkable. She does have a mildly elevated AST at 45, calcium is slightly low at 7.7 and magnesium at 1.8. Albumin is normal. Her troponins have been elevated since she has come in starting at 1.21 and this morning 1.36. CRP elevated at 15.3. CBC notable for a hemoglobin 9.1, platelet count 322,000, normal white blood cell count. She had a negative tox screen. 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 She had her left upper lobe resected and she has not had a chest x-ray yet and I think at this point, recommend first getting a CT scan of the chest with and without contrast. If that is negative, she will need an MRI of her neck and brain and possibly the brachial plexus if we do not find an ischemic lesion. It is possible that she has a compressive radial nerve palsy, but her weakness is well out of the distribution of that and it seems legitimate and not functional. We will start with a CAT scan and I will discuss her case with Dr. Nelson and proceed from there. [id number]/[facility] #: [id number] MTDD
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
[2017-05-02] MEDS ORDERED: Atorvastatin* 80 MG TAB PO ONE (17:51)
[2017-05-02] MEDS ORDERED: Atorvastatin* 80 MG TAB ONE (18:55)
[2017-05-02] MEDS: Mometasone 220 MCG MDI INH SCH (19:29)
[2017-05-02] MEDS: QUEtiapine TAB* 100 MG PO SCH (20:42)
[2017-05-02] MEDS: Metoprolol Tartrate TAB* 25 MG PO SCH (20:42)
[2017-05-02] MEDS: CMC: Pantoprazole TAB (NF) 40 MG TAB PO SCH (20:42)
[2017-05-03] MEDS: HYDROcodone/ACETAMIN 5-325 MG* 1 TAB PO PRN ×5 (05:15→22:40)
[2017-05-03] MEDS: Levothyroxine TAB* 175 MCG TAB PO SCH (05:16)
[2017-05-03 05:46] LABS: Hematocrit 26 % (35-47); Hemoglobin 8.5 g/dl (12.0-16.0); Mean Corpuscular HGB Conc 33 g/dl (31-36); Mean Corpuscular Hemoglobin 31 pg (27-31); Mean Corpuscular Volume 94 fL (80-97); Mean Platelet Volume 9 um3 (7.4-10.4); Red Blood Count 2.72 10^6/ul (4.0-5.4); Red Cell Distribution Width 17 % (10.5-15); White Blood Count 6.5 10^3/ul (3.5-10.8)
[2017-05-03 06:03] LABS: BUN/Creatinine Ratio 12.9 (8-20); Calcium 7.8 mg/dL (8.6-10.3); EGFR African American 77.8 (>60); EGFR Non-African American 60.5 (>60); Potassium 4.2 mmol/L (3.5-5.0)
[2017-05-03] MEDS: Heparin DRIP 25,000 UNITS(*) 25,000 UNITS/500 ML BAG IV SCH (07:40)
[2017-05-03] MEDS: Potassium Chlor TAB* 20 MEQ TAB.ER PO SCH ×3 (07:59→22:21)
[2017-05-03] MEDS: CMC: Pantoprazole TAB (NF) 40 MG TAB PO SCH ×2 (08:00→22:22)
[2017-05-03] MEDS: Metoprolol Tartrate TAB* 25 MG PO SCH ×2 (08:00→22:21)
[2017-05-03] MEDS: DULoxetine DR CAP* 60 MG CAP.DR PO SCH (08:00)
[2017-05-03] MEDS: Clopidogrel TAB* 75 MG PO SCH (08:00)
--- NOTE | 2017-05-03 09:33 | PN ---
Subjective Date of Service: 05/03/17 Objective Active Medications: Hydrocodone Bitart/Acetaminophen ([place] 5-325 Tab*) 1 tab PO Q4H PRN Albuterol (Ventolin 2.5 Mg/3 Ml Neb.Tracey*) 2.5 mg INH Q4H PRN Albuterol (Ventolin Hfa Inhaler*) 2 puff INH Q4H PRN Clopidogrel Bisulfate (Plavix Tab*) 75 mg PO DAILY [facility] Duloxetine HCl (Cymbalta Cap*) 60 mg PO DAILY [facility] Heparin Sodium/Dextrose (Heparin Drip 25,000 Units(*)) 25,000 units in 500 mls @ 0 mls/hr IV .NO BOLUSES PROTOCOL [facility]; Per Protocol Iohexol (Omnipaque 300* (Contrast)) 80 ml IV ONCE [facility] Ipratropium [place] (Atrovent 0.5 Mg Neb.Tracey*) 0.5 mg INH QID PRN Levothyroxine Sodium (Synthroid Tab*) 175 mcg PO 0600 [facility] Metoprolol Tartrate (Lopressor Tab*) 25 mg PO BID [facility] Mometasone Furoate (Asmanex 220 Mcg Mdi *) 2 puff INH QPM [facility] Pantoprazole Sodium (Protonix Tab (Nf)) 40 mg PO BID [facility] Potassium Chloride (Klor Con Er Tab*) 20 meq PO TID [facility] Quetiapine Fumarate (Seroquel Tab*) 200 mg PO BEDTIME [facility] Vital Signs 05/02/17 05/02/17 05/02/17 11:43 14:21 15:21 Temperature 98.4 F Pulse Rate 71 Respiratory 18 18 20 Rate Blood Pressure 123/66 (mmHg) O2 Sat by Pulse 99 Oximetry 05/02/17 05/02/17 05/02/17 17:33 20:07 20:42 Temperature 97.6 F Pulse Rate 76 Respiratory 18 18 18 Rate Blood Pressure 118/77 (mmHg) O2 Sat by Pulse 100 Oximetry 05/02/17 05/02/17 05/02/17 20:45 23:47 23:59 Temperature 98.3 F Pulse Rate 70 Respiratory 18 18 20 Rate Blood Pressure 110/65 (mmHg) O2 Sat by Pulse 100 Oximetry 05/03/17 05/03/17 05/03/17 03:42 05:15 07:21 Temperature 98.2 F 97.9 F Pulse Rate 72 66 Respiratory 20 19 20 Rate Blood Pressure 133/78 135/75 (mmHg) O2 Sat by Pulse 100 100 Oximetry Oxygen Devices in Use Now: None Eyes: No Scleral Icterus, PERRLA Ears/Nose/Mouth/Throat: NL Teeth, Lips, Gums, Clear Oropharnyx, Mucous Membranes Moist Neck: NL Appearance and Movements; NL JVP, Trachea Midline, No Thyroid Enlargement, Masses Respiratory: Clear to Auscultation, - - non-productive cough Cardiovascular: NL Sounds; No Murmurs; No JVD Abdominal: NL Sounds; No Tenderness; No Distention, No Hepatosplenomegaly Extremities: No Edema, No Clubbing, Cyanosis - mottling/ecchymosis LUE 2/2 IV infiltration Skin: No Rash or Ulcers Neurological: Alert and Oriented x 3, - - 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, 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 LUE with no motor ability Result Diagrams: 05/03/17 05:21 05/03/17 05:21 Diagnostic Imaging: CHEST CT 04/02/17 - NO PE EKG Data: RSR on tele with no new interval changes Assess/Plan/Problems-Billing Assessment: This is a 66 year old female patient with a complaint of acute onset of LUE motor weakness beginning early wednesday morning with no resolution and still no clear etiology, also with elevated troponins/NSTEMI - Patient Problems (1) ACS (acute coronary syndrome) Code(s): I24.9 - ACUTE ISCHEMIC HEART DISEASE, UNSPECIFIED SNOMED Code(s): 068652473 Comment: - continue heparin per protocol - continue plavix (allergy to ASA) - cardiology consult appreciated - negative for PE - ECHO completed, please see report - Per cardiology note, will likely need cardiac cath if MRI brain negative (2) Hyponatremia Code(s): E87.1 - HYPO-OSMOLALITY AND HYPONATREMIA SNOMED Code(s): 85148546 Comment: - Acute on chronic - Current etiology may be due to hx of polydipsia? - Follow BMP - Continue fluid restriction at 2000ml/24h (3) COPD (chronic obstructive pulmonary disease) Code(s): J44.9 - CHRONIC OBSTRUCTIVE PULMONARY DISEASE, UNSPECIFIED SNOMED Code(s): 02460638 Comment: - Continue inhalers and home meds - Currently stable (4) History of lung cancer Code(s): Z85.118 - PERSONAL HISTORY OF MALIGNANT NEOPLASM OF BRONCHUS AND LUNG SNOMED Code(s): 892610823 Comment: - CT chest with small pulmonary nodule, unclear significance, otherwise no interval changes from last - stable (5) Depression Code(s): F32.9 - MAJOR DEPRESSIVE DISORDER, SINGLE EPISODE, UNSPECIFIED SNOMED Code(s): 48377493 Comment: - Continue seroquel and cymbalta - Mood stable (6) GERD (gastroesophageal reflux disease) Code(s): K21.9 - GASTRO-ESOPHAGEAL REFLUX DISEASE WITHOUT ESOPHAGITIS SNOMED Code(s): 161971280 Comment: - Protonix BID - Stable (7) Hypothyroidism Code(s): E03.9 - HYPOTHYROIDISM, UNSPECIFIED SNOMED Code(s): 53848820 Comment: - TSH = 8.14 at admission - Continue levothyroxine at 175mcg for now (8) Tobacco abuse Code(s): Z72.0 - TOBACCO USE SNOMED Code(s): 189195925 Comment: - Continue to student counselor on cessation given hx (9) DVT prophylaxis Code(s): ZLK4396 - SNOMED Code(s): 589120550 Comment: - continue heparin per protocol and follow coags (10) Full code status Code(s): Z78.9 - OTHER SPECIFIED HEALTH STATUS SNOMED Code(s): 951756586 Comment: - Full code (11) Weakness of left upper extremity Code(s): R29.898 - OTH SYMPTOMS AND SIGNS INVOLVING THE MUSCULOSKELETAL SYSTEM SNOMED Code(s): 356713801 Comment: - Pending MRI of brain today, follow results - CT head with no acute pathology - Pending neuro consult Status and Disposition: - Remain Inpatient - Currently stable 1848: Update MRI positive for acute vs subacute infarct right frontal and right parietal regions. Discussed with neuro Dr. Akosua Mccauley. Counseling and/or Coordination of Care Minutes: Coordinated with nursing staff, time spent >60 mins Attending: Valencia Burk
[2017-05-03] MEDS ORDERED: LORazepam INJ* 2 MG/ML 1 ML VIAL IV PUSH ONE (13:00)
[2017-05-03] MEDS ORDERED: Gadoteridol* (CONTRAST) 279.3 MG/ML 10 ML IV ONE (14:16)
--- NOTE | 2017-05-03 16:15 | RAD ---
Indication: LEFT arm weakness since Wednesday morning. History of lung carcinoma. Comparison: May 02, [address] brain. December 20, 2012 contrast-enhanced MRI brain. Technique: TwentyFour6 Iago 1.5 Keiry [id number] with GEM suite. MRI brain without contrast. Report: 1.8 cm AP by 3.2 cm transverse region of restricted diffusion flanking the RIGHT central sulcus involving the posterior RIGHT frontal lobe and anterior parietal lobe. Corresponding decreased signal on ADC map confirming acute or subacute ischemia. Mild corresponding T2/FLAIR hyperintensity favoring subacute ischemic injury. Unremarkable cerebral sulci, ventricles, and basal cisterns. Bilateral periventricular and subcortical white matter T2 hyperintensity most consistent with chronic small vessel ischemic disease. No intra or extra-axial fluid collection or mass lesion evident. Unremarkable orbital contents. Preserved major intracranial flow-voids. No calvarial or skull base lesion evident. Fluid levels in the bilateral maxillary sinuses with punctate gas bubbles suspicious for acute sinusitis. Grossly clear mastoid air spaces. IMPRESSION: 1. The constellation of findings is most consistent with a subacute ischemic infarct at the posterior RIGHT frontal lobe and anterior RIGHT parietal lobe superior lobule. Negative for associated mass effect. 2. Stigmata of chronic small vessel ischemic disease with mild interval progression compared with the 2013 exam. 3. Stigmata of acute bilateral maxillary sinusitis.
--- NOTE | 2017-05-03 20:04 | CONS ---
NEUROLOGY FOLLOWUP NOTE: DATE OF FOLLOWUP: 05/03/17 HOSPITALIST: Libra Hopkins NP LOCATION: She is an inpatient in [facility]. CHIEF COMPLAINT: Left arm weakness. INTERVAL HISTORY: Since yesterday, Jessi has not noticed any improvement in her left arm function. She noted some increased tingling in the left hand, but no improvement in mobility. She developed infiltration of an IV in the left forearm, which may have caused the increased paresthesias. She still has no numbness on her face or change in speech or sense of weakness in her limbs other than her left arm. She had a CT of her chest yesterday, which revealed a new 4-mm pulmonary nodule in the remaining left lobe that was not seen in the previous CT scans, the last one being February 2017. There is no apical mass described. LABORATORY DATA: Today is notable for improvement in sodium to 133, calcium stable at 7.8, troponins remain elevated with the last one being 1.36. Cholesterol 252, LDL 150. Her hemoglobin has dropped from 10.9 on admission to 8.5 this morning. Platelets remain normal at 287,000 and white blood cell count 6.5. PTT is 63.6 this morning. MEDICATIONS: Reviewed and she is on: 1. Albuterol inhaler. 2. Plavix 75 mg p.o. q. day. 3. Heparin infusion. 4. Cymbalta 60 mg p.o. q. day. 5. Levothyroxine 175 mcg p.o. q. day. 6. Metoprolol 25 mg p.o. b.i.d. 7. Seroquel 200 mg p.o. q.h.s. She attempted an MRI scan of the brain and cervical spine earlier today and developed claustrophobia and anxiety. We are going to reattempt this afternoon after lorazepam. PHYSICAL EXAM: She remains afebrile, temperature 98.0 orally. Blood pressure 137/81, respirations 18, and oxygen saturations are 100% on room air. On examination, she is alert and oriented. Speech is clear without dysarthria. Facial musculature is symmetric. Eye movements are full. She has normal strength in the right arm. In the left arm, she has virtually no finger or wrist flexion or extension. She has at least grade 4- if not grade 4 biceps and triceps strength and deltoid strength. IMPRESSION AND PLAN: Impression is that of a probable cerebrovascular accident. Her MRI should clarify things. I have written for an MRI of the cervical spine as well as the brain for the possibility of epidural mass, but I would not expect that to start so abruptly. I will follow up after the imaging is complete. [id number]/[facility]PS #: [id number] MTDD
[2017-05-03] MEDS: Mometasone 220 MCG MDI INH SCH (20:56)
[2017-05-03] MEDS: QUEtiapine TAB* 100 MG PO SCH (22:21)
[2017-05-04] MEDS: HYDROcodone/ACETAMIN 5-325 MG* 1 TAB PO PRN ×5 (03:15→22:18)
[2017-05-04] MEDS: Levothyroxine TAB* 175 MCG TAB PO SCH (05:50)
[2017-05-04 06:17] LABS: Hematocrit 28 % (35-47); Hemoglobin 8.9 g/dl (12.0-16.0); Mean Corpuscular HGB Conc 32 g/dl (31-36); Mean Corpuscular Hemoglobin 31 pg (27-31); Mean Corpuscular Volume 95 fL (80-97); Mean Platelet Volume 8 um3 (7.4-10.4); Red Blood Count 2.92 10^6/ul (4.0-5.4); Red Cell Distribution Width 17 % (10.5-15); White Blood Count 7.3 10^3/ul (3.5-10.8)
--- NOTE | 2017-05-04 07:52 | RAD ---
HISTORY: Left arm weakness, history of lung cancer COMPARISONS: CT of the cervical spine dated March 19, 2017 TECHNIQUE: The following sequences were obtained of the cervical spine: Sagittal T1- and T2-weighted images, sagittal STIR images, axial T2 and gradient echo images. FINDINGS: The study is limited by patient motion artifact. BRAIN AND SPINAL CORD: The visualized spinal cord is normal in caliber, position, and signal intensity. The visualized portion of the brain is unremarkable. The cerebellar tonsils are normal in position. ALIGNMENT: The alignment is normal. VERTEBRAL BODIES: There is mild anterolateral marginal osteophyte JOINTS: There is diffuse uncovertebral and facet osteoarthritis MUSCULATURE: Unremarkable INTERVERTEBRAL DISCS: There is diffuse loss of intervertebral disc height and T2 signal throughout the spine. AXIAL IMAGES: C2-C3: There is a central disc protrusion measuring 0.4 cm in depth. There is moderate right neural foraminal narrowing. There is no significant central canal stenosis. C3-C4: There is bilateral uncovertebral and facet hypertrophy. There is moderate left and mild right neural foraminal narrowing. There is no significant central canal stenosis. C4-C5: There is bilateral uncovertebral and facet hypertrophy. There is moderate bilateral neural foraminal narrowing. There is no significant central canal stenosis. C5-C6: There is broad-based disc osteophyte complex with uncovertebral, facet, and ligamentous hypertrophy. There is moderate bilateral neural foraminal narrowing. There is mild narrowing of central canal. C6-C7: There is a broad-based disc osteophyte complex with bilateral uncovertebral and facet hypertrophy. There is moderate bilateral neural foraminal narrowing. There is no significant central canal stenosis. C7-T1: There is no disc herniation, spinal stenosis, or neuroforaminal narrowing. SOFT TISSUES: The visualized soft tissues of the neck are unremarkable. There is no bone edema. There is no lymphadenopathy by size criteria. OTHER: None. IMPRESSION: 1. LIMITED STUDY. 2. DEGENERATIVE DISC DISEASE AND OSTEOARTHRITIS. 3. THERE IS MILD NARROWING OF THE CENTRAL CANAL AT C5-C6. 4. THERE IS MULTILEVEL NEURAL FORAMINAL NARROWING DESCRIBED ABOVE. 5. THERE IS A CENTRAL DISC PROTRUSION AT C2-C3.
[2017-05-04] MEDS: Metoprolol Tartrate TAB* 25 MG PO SCH ×2 (09:04→22:18)
[2017-05-04] MEDS: Clopidogrel TAB* 75 MG PO SCH (09:05)
[2017-05-04] MEDS: Potassium Chlor TAB* 20 MEQ TAB.ER PO SCH ×3 (09:05→22:17)
[2017-05-04] MEDS: DULoxetine DR CAP* 60 MG CAP.DR PO SCH (09:05)
[2017-05-04] MEDS: CMC: Pantoprazole TAB (NF) 40 MG TAB PO SCH ×2 (09:05→22:19)
[2017-05-04 11:09] LABS: HDL Cholesterol 82.9 mg/dL
--- NOTE | 2017-05-04 12:19 | PN ---
Subjective Date of Service: 05/04/17 Interval History: Patient seen and examined. Tearful, states she is upset and frustrated by her condition. Explained that she has had a stroke that was found on MRI and that neurology and cardiology are following her closely to continue her POC. 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 Denies chest pain, no n/v. No acute overnight events. Objective Active Medications: Hydrocodone Bitart/Acetaminophen ([place] 5-325 Tab*) 1 tab PO Q4H PRN PRN Reason: PAIN Last Admin: 05/04/17 09:04 Dose: 1 tab Albuterol (Ventolin 2.5 Mg/3 Ml Neb.Tracey*) 2.5 mg INH Q4H PRN PRN Reason: SOB/WHEEZING Albuterol (Ventolin Hfa Inhaler*) 2 puff INH Q4H PRN PRN Reason: SOB/WHEEZING Last Admin: 05/02/17 19:28 Dose: 2 puff Atorvastatin Calcium (Lipitor*) 40 mg PO 1700 [facility] Clopidogrel Bisulfate (Plavix Tab*) 75 mg PO DAILY [facility] Last Admin: 05/04/17 09:05 Dose: 75 mg Duloxetine HCl (Cymbalta Cap*) 60 mg PO DAILY [facility] Last Admin: 05/04/17 09:05 Dose: 60 mg Heparin Sodium/Dextrose (Heparin Drip 25,000 Units(*)) 25,000 units in 500 mls @ 0 mls/hr IV .NO BOLUSES PROTOCOL [facility]; Per Protocol PRN Reason: Protocol Last Admin: 05/03/17 07:40 Dose: 17 mls/hr Iohexol (Omnipaque 300* (Contrast)) 80 ml IV ONCE [facility] Stop: 05/04/17 13:15 Last Admin: 05/02/17 13:34 Dose: 80 ml Ipratropium [place] (Atrovent 0.5 Mg Neb.Tracey*) 0.5 mg INH QID PRN PRN Reason: SOB/WHEEZING Levothyroxine Sodium (Synthroid Tab*) 175 mcg PO 0600 [facility] Last Admin: 05/04/17 05:50 Dose: 175 mcg Metoprolol Tartrate (Lopressor Tab*) 25 mg PO BID [facility] Last Admin: 05/04/17 09:04 Dose: 25 mg Mometasone Furoate (Asmanex 220 Mcg Mdi *) 2 puff INH QPM [facility] Last Admin: 05/03/17 20:56 Dose: 2 puff Pantoprazole Sodium (Protonix Tab (Nf)) 40 mg PO BID [facility] Last Admin: 05/04/17 09:05 Dose: 40 mg Potassium Chloride (Klor Con Er Tab*) 20 meq PO TID [facility] Last Admin: 05/04/17 09:05 Dose: 20 meq Quetiapine Fumarate (Seroquel Tab*) 200 mg PO BEDTIME [facility] Last Admin: 05/03/17 22:21 Dose: 200 mg Vital Signs - 8 hr 05/04/17 05/04/17 05/04/17 05:53 07:28 08:00 Temperature 97.4 F Pulse Rate 66 Respiratory 14 16 20 Rate Blood Pressure 170/92 (mmHg) O2 Sat by Pulse 100 Oximetry 05/04/17 09:04 Temperature Pulse Rate Respiratory 20 Rate Blood Pressure (mmHg) O2 Sat by Pulse Oximetry Oxygen Devices in Use Now: None Appearance: Tearful, otherwise pleasant and cooperative Ears/Nose/Mouth/Throat: Mucous Membranes Moist Neck: NL Appearance and Movements; NL JVP, Trachea Midline Respiratory: Symmetrical Chest Expansion and Respiratory Effort, Clear to Auscultation Cardiovascular: NL Sounds; No Murmurs; No JVD Abdominal: NL Sounds; No Tenderness; No Distention Lymphatic: No Cervical Adenopathy Skin: No Rash or Ulcers - LUE IV infiltration/ecchymosis improving from yesterday's exam Neurological: Alert and Oriented x 3 Nutrition: Taking PO's Result Diagrams: 05/04/17 05:28 05/03/17 21:28 Additional Lab and Data: Abnormal Lab Results 05/03/17 05/04/17 05/04/17 21:28 05:28 05:28 WBC 7.3 RBC 2.92 L Hgb 8.9 L Hct 28 L MCV 95 MCH 31 MCHC 32 RDW 17 H Plt Count 291 MPV 8 Neut % (Auto) 64.7 Lymph % (Auto) 23.1 L [place] % (Auto) 9.1 H Eos % (Auto) 2.4 Baso % (Auto) 0.7 Absolute Neuts (auto) 4.7 Absolute Lymphs (auto) 1.7 Absolute Monos (auto) 0.7 Absolute Eos (auto) 0.2 Absolute Basos (auto) 0 Absolute Nucleated RBC 0.01 Nucleated RBC % 0.1 APTT BUN 11 Triglycerides 164 Cholesterol 238 LDL Cholesterol 122 HDL Cholesterol 82.9 05/04/17 07:40 WBC RBC Hgb Hct MCV MCH MCHC RDW Plt Count MPV Neut % (Auto) Lymph % (Auto) [place] % (Auto) Eos % (Auto) Baso % (Auto) Absolute Neuts (auto) Absolute Lymphs (auto) Absolute Monos (auto) Absolute Eos (auto) Absolute Basos (auto) Absolute Nucleated RBC Nucleated RBC % APTT 52.8 H BUN Triglycerides Cholesterol LDL Cholesterol HDL Cholesterol Diagnostic Imaging: CHEST CT 04/02/17 - NO PE EKG Data: RSR on tele with no new interval changes Assess/Plan/Problems-Billing Assessment: This is a 66 year old female patient s/p NSTEMI and now confirmed right frontal/ parietal brain infarcts: - Patient Problems (1) Hyponatremia Code(s): E87.1 - HYPO-OSMOLALITY AND HYPONATREMIA SNOMED Code(s): 77951045 Comment: - Acute on chronic - Current etiology may be due to hx of polydipsia? - Follow BMP - Continue fluid restriction at 2000ml/24h (2) COPD (chronic obstructive pulmonary disease) Code(s): J44.9 - CHRONIC OBSTRUCTIVE PULMONARY DISEASE, UNSPECIFIED SNOMED Code(s): 99295987 Comment: - Continue inhalers and home meds - Currently stable (3) History of lung cancer Code(s): Z85.118 - PERSONAL HISTORY OF MALIGNANT NEOPLASM OF BRONCHUS AND LUNG SNOMED Code(s): 228134006 Comment: - CT chest with small pulmonary nodule, unclear significance, otherwise no interval changes from last - stable (4) Depression Code(s): F32.9 - MAJOR DEPRESSIVE DISORDER, SINGLE EPISODE, UNSPECIFIED SNOMED Code(s): 00274554 Comment: - Continue seroquel and cymbalta - Mood stable (5) GERD (gastroesophageal reflux disease) Code(s): K21.9 - GASTRO-ESOPHAGEAL REFLUX DISEASE WITHOUT ESOPHAGITIS SNOMED Code(s): 449521806 Comment: - Protonix BID - Stable (6) Hypothyroidism Code(s): E03.9 - HYPOTHYROIDISM, UNSPECIFIED SNOMED Code(s): 42462172 Comment: - TSH = 8.14 at admission - Continue levothyroxine at 175mcg for now (7) Tobacco abuse Code(s): Z72.0 - TOBACCO USE SNOMED Code(s): 201654340 Comment: - Continue to associate professor of counseling on cessation given hx (8) DVT prophylaxis Code(s): [id number] - SNOMED Code(s): 392844620 Comment: - continue heparin per protocol and follow coags (9) Full code status Code(s): Z78.9 - OTHER SPECIFIED HEALTH STATUS SNOMED Code(s): 575079656 Comment: - Full code (10) NSTEMI (non-ST elevated myocardial infarction) Code(s): I21.4 - NON-ST ELEVATION (NSTEMI) MYOCARDIAL INFARCTION SNOMED Code(s ): 237404175 Comment: - continue heparin per protocol - continue plavix (allergy to ASA) - cardiology following - negative for PE - ECHO completed, please see report - Will need cardiac cath, need to coordinate with cardio and neuro for timing given new stroke (11) Acute CVA (cerebrovascular accident) Code(s): I63.9 - CEREBRAL INFARCTION, UNSPECIFIED SNOMED Code(s): 565599264 Comment: - MRI brain shows right frontal and parietal infarcts - Discussed with Dr. Mccauley last night - LUE symptoms with clinical improvement today - Lipid profile completed - Start statin today - PT eval and treamtent, will need longer term therapy at DC Status and Disposition: - Remain Inpatient - Currently stable 1848: Update MRI positive for acute vs subacute infarct right frontal and right parietal regions. Discussed with neuro Dr. Akosua Mccauley. Counseling and/or Coordination of Care Minutes: Coordinated with patient and RN , time spent >60mins Attending: Megan Garcia
[2017-05-04] MEDS ORDERED: Metoprolol Tartrate TAB* 25 MG PO ONE (12:27)
[2017-05-04] MEDS: Atorvastatin* 40 MG TAB PO SCH (18:15)
[2017-05-04] MEDS: Heparin DRIP 25,000 UNITS(*) 25,000 UNITS/500 ML BAG IV SCH (19:10)
--- NOTE | 2017-05-04 20:11 | PN ---
NEUROLOGY FOLLOWUP NOTE: DATE OF FOLLOWUP: 05/04/17 HOSPITALIST: Dr. Mague Hopkins. LOCATION: She is an inpatient in room 445. CHIEF COMPLAINT: Left arm weakness. INTERVAL HISTORY: Since yesterday, Ms. Glover notes some improvement in the proximal strength of her left upper extremity, but not in her hand. She does not have any facial weakness or numbness, or change in speech. She is able to walk and she feels a little unsteady, but she does not feel that she has any weakness in either leg. She does not have any headaches. MEDICATIONS: Reviewed and she is now on: 1. Atorvastatin,which she was not on outside of the hospital 40 mg p.o. daily. 2. Clopidogrel 75 mg p.o. daily. 3. Heparin infusion. 4. Cymbalta 60 mg p.o. daily. 5. Levothyroxine 175 mcg p.o. daily. 6. Metoprolol 25 mg p.o. b.i.d. 7. Protonix 40 mg p.o. b.i.d. 8. Quetiapine 200 mg p.o. q.h.s. PHYSICAL EXAM: On examination, temperature 98 degrees orally, blood pressure most recently 176/96, was running lower earlier today in the 130s/60s to 70s, but it is fluctuating. Respiratory rate is about 20 and oxygen saturation is 100% on room air. Facial musculature is symmetric. Speech is clear. Eye movements are full. On motor exam, she has grade 4 strength proximally in the left upper extremity and trace movement in the wrist extensors and flexors in fingers. She has normal strength in the right arm and legs. Language is fluent. She is alert and oriented. DIAGNOSTIC STUDIES/LAB DATA: Includes an MRI of the brain from yesterday, which I reviewed and reveals acute infarction in the right motor strip in a fairly circumscribed area. Other laboratory data notable for CBC with hemoglobin 8.9, platelet count 291,000. PTT today is 52.8. Chemistry is notable for sodium of 133 today, calcium is down to 7.8. Cholesterol is 238, LDL 122. IMPRESSION AND PLAN: Impression is that of a fairly focal right middle cerebral artery infarction. It is most likely cardioembolic in the setting of an inferior wall myocardial infarction. She had a CT angiogram of the brain and neck in February, which revealed diffuse atheromatous disease, but no significant intracranial or extracranial stenosis. I do not think she needs a further workup from cerebrovascular point of view. My understanding that there is a good chance, she will require cardiac catheterization. I think it is reasonably safe in the setting of her acute stroke, but it would be preferable to avoid heparin boluses or other anticoagulation aside, which she is currently on. She will need outpatient physical and occupational therapy. [id number]/[facility] #: [id number] NICOLE
[2017-05-04] MEDS: QUEtiapine TAB* 100 MG PO SCH (22:18)
[2017-05-05] MEDS: Mometasone 220 MCG MDI INH SCH ×2 (04:20→18:20)
[2017-05-05] MEDS: HYDROcodone/ACETAMIN 5-325 MG* 1 TAB PO PRN ×5 (04:24→21:20)
[2017-05-05] MEDS: Levothyroxine TAB* 175 MCG TAB PO SCH (05:27)
[2017-05-05 10:27] LABS: Hematocrit 29 % (35-47); Hemoglobin 9.4 g/dl (12.0-16.0); Mean Corpuscular HGB Conc 33 g/dl (31-36); Mean Corpuscular Hemoglobin 31 pg (27-31); Mean Corpuscular Volume 94 fL (80-97); Mean Platelet Volume 9 um3 (7.4-10.4); Red Blood Count 3.06 10^6/ul (4.0-5.4); Red Cell Distribution Width 18 % (10.5-15); White Blood Count 5.5 10^3/ul (3.5-10.8)
[2017-05-05] MEDS: Clopidogrel TAB* 75 MG PO SCH (10:37)
[2017-05-05] MEDS: DULoxetine DR CAP* 60 MG CAP.DR PO SCH (10:38)
[2017-05-05] MEDS: Metoprolol Tartrate TAB* 25 MG PO SCH (10:39)
[2017-05-05] MEDS: CMC: Pantoprazole TAB (NF) 40 MG TAB PO SCH ×2 (10:39→21:20)
[2017-05-05] MEDS: Potassium Chlor TAB* 20 MEQ TAB.ER PO SCH ×3 (10:40→21:19)
--- NOTE | 2017-05-05 16:09 | PN ---
Subjective Date of Service: 05/05/17 Interval History: Patient seen and examined. Sitting in [place] with nursing program chair. States she is feeling despondent about her situation. Denies any pain, no headache, no chest pain no SOB, no n/v. States increasing anxiety, requested ativan PRN. No further complaints. Objective Active Medications: Hydrocodone Bitart/Acetaminophen ([place] 5-325 Tab*) 1 tab PO Q4H PRN PRN Reason: PAIN Last Admin: 05/05/17 12:45 Dose: 1 tab Albuterol (Ventolin 2.5 Mg/3 Ml Neb.Tracey*) 2.5 mg INH Q4H PRN PRN Reason: SOB/WHEEZING Albuterol (Ventolin Hfa Inhaler*) 2 puff INH Q4H PRN PRN Reason: SOB/WHEEZING Last Admin: 05/02/17 19:28 Dose: 2 puff Atorvastatin Calcium (Lipitor*) 40 mg PO 1700 [facility] Last Admin: 05/04/17 18:15 Dose: 40 mg Clopidogrel Bisulfate (Plavix Tab*) 75 mg PO DAILY [facility] Last Admin: 05/05/17 10:37 Dose: 75 mg Duloxetine HCl (Cymbalta Cap*) 60 mg PO DAILY [facility] Last Admin: 05/05/17 10:38 Dose: 60 mg Hydroxyzine HCl (Atarax Tab*) 25 mg PO Q6H PRN PRN Reason: ANXIETY Heparin Sodium/Dextrose (Heparin Drip 25,000 Units(*)) 25,000 units in 500 mls @ 0 mls/hr IV .NO BOLUSES PROTOCOL [facility]; Per Protocol PRN Reason: Protocol Last Admin: 05/04/17 19:10 Dose: 17 mls/hr Ipratropium [place] (Atrovent 0.5 Mg Neb.Tracey*) 0.5 mg INH QID PRN PRN Reason: SOB/WHEEZING Levothyroxine Sodium (Synthroid Tab*) 175 mcg PO 0600 [facility] Last Admin: 05/05/17 05:27 Dose: 175 mcg Metoprolol Tartrate (Lopressor Tab*) 25 mg PO BID [facility] Last Admin: 05/05/17 10:39 Dose: 25 mg Mometasone Furoate (Asmanex 220 Mcg Mdi *) 2 puff INH QPM [facility] Last Admin: 05/05/17 04:20 Dose: Not Given Pantoprazole Sodium (Protonix Tab (Nf)) 40 mg PO BID [facility] Last Admin: 05/05/17 10:39 Dose: 40 mg Potassium Chloride (Klor Con Er Tab*) 20 meq PO TID [facility] Last Admin: 05/05/17 12:46 Dose: 20 meq Quetiapine Fumarate (Seroquel Tab*) 200 mg PO BEDTIME [facility] Last Admin: 05/04/17 22:18 Dose: 200 mg Vital Signs - 8 hr 05/05/17 05/05/17 05/05/17 08:13 08:42 10:40 Temperature 97.3 F Pulse Rate 66 75 Respiratory 14 18 Rate Blood Pressure 150/90 143/76 (mmHg) O2 Sat by Pulse 100 Oximetry 05/05/17 05/05/17 05/05/17 11:27 12:04 12:45 Temperature 98.4 F Pulse Rate 74 Respiratory 24 16 16 Rate Blood Pressure 168/82 (mmHg) O2 Sat by Pulse 99 Oximetry Oxygen Devices in Use Now: None Appearance: NAD, well appearing Eyes: No Scleral Icterus, PERRLA Ears/Nose/Mouth/Throat: NL Teeth, Lips, Gums Neck: NL Appearance and Movements; NL JVP Respiratory: Symmetrical Chest Expansion and Respiratory Effort Cardiovascular: NL Sounds; No Murmurs; No JVD Abdominal: NL Sounds; No Tenderness; No Distention Skin: - - LUE ecchymosis with further improvement Neurological: Alert and Oriented x 3, NL Sensation, NL Gait, - - Still with left hand weakness and gross motor deficit, left arm with further improvement Lines/Tubes/Other Access: Clean, Dry and Intact Peripheral IV Result Diagrams: 05/05/17 08:05 05/03/17 21:28 Additional Lab and Data: Abnormal Lab Results 05/04/17 07:40 WBC RBC Hgb Hct MCV MCH MCHC RDW Plt Count MPV Neut % (Auto) Lymph % (Auto) Keith % (Auto) Eos % (Auto) Baso % (Auto) Absolute Neuts (auto) Absolute Lymphs (auto) Absolute Monos (auto) Absolute Eos (auto) Absolute Basos (auto) Absolute Nucleated RBC Nucleated RBC % APTT 52.8 H BUN Triglycerides Cholesterol LDL Cholesterol HDL Cholesterol Diagnostic Imaging: CHEST CT 04/02/17 - NO PE EKG Data: RSR on tele with no new interval changes Assess/Plan/Problems-Billing Assessment: This is a 66 year old female patient s/p NSTEMI and thrombo-embolic right frontal/parietal brain infarcts: - Patient Problems (1) Hyponatremia Code(s): E87.1 - HYPO-OSMOLALITY AND HYPONATREMIA SNOMED Code(s): 36138001 Comment: - Acute on chronic - Cg=445 yesterday - Current etiology may be due to hx of polydipsia? - Continue fluid restriction at 2000ml/24h - Stable (2) COPD (chronic obstructive pulmonary disease) Code(s): J44.9 - CHRONIC OBSTRUCTIVE PULMONARY DISEASE, UNSPECIFIED SNOMED Code(s): 04938184 Comment: - Continue inhalers and home meds - Currently stable (3) History of lung cancer Code(s): Z85.118 - PERSONAL HISTORY OF MALIGNANT NEOPLASM OF BRONCHUS AND LUNG SNOMED Code(s): 709152920 Comment: - CT chest with small pulmonary nodule, unclear significance, otherwise no interval changes from last - stable (4) Depression Code(s): F32.9 - MAJOR DEPRESSIVE DISORDER, SINGLE EPISODE, UNSPECIFIED SNOMED Code(s): 26920701 Comment: - Continue seroquel and cymbalta - Mood somewhat labile today with mixed anxiety - Will order hydroxyzine PRN given hx of substance abuse - would avoid benzos (5) GERD (gastroesophageal reflux disease) Code(s): K21.9 - GASTRO-ESOPHAGEAL REFLUX DISEASE WITHOUT ESOPHAGITIS SNOMED Code(s): 241761312 Comment: - Protonix BID - Stable (6) Hypothyroidism Code(s): E03.9 - HYPOTHYROIDISM, UNSPECIFIED SNOMED Code(s): 67044447 Comment: - TSH = 8.14 at admission - Continue levothyroxine at 175mcg for now (7) Tobacco abuse Code(s): Z72.0 - TOBACCO USE SNOMED Code(s): 681311721 Comment: - Continue to student services counselor on cessation given hx (8) DVT prophylaxis Code(s): BCB7175 - SNOMED Code(s): 038454125 Comment: - continue heparin per protocol and follow coags (9) Full code status Code(s): Z78.9 - OTHER SPECIFIED HEALTH STATUS SNOMED Code(s): 836077087 Comment: - Full code (10) NSTEMI (non-ST elevated myocardial infarction) Code(s): I21.4 - NON-ST ELEVATION (NSTEMI) MYOCARDIAL INFARCTION SNOMED Code(s ): 870538605 Comment: - continue heparin per protocol - continue plavix (allergy to ASA) - Spoke with Dr. Rain today re: cardiac cath, he will confirm with patient if she wishes to pursue cath - Also discussed with Dr. Mccauley, would recommend coumadin with plavix post cath for anticoagulation as the CVA seems to be a thrombo-embolic event from the CT (11) Acute CVA (cerebrovascular accident) Code(s): I63.9 - CEREBRAL INFARCTION, UNSPECIFIED SNOMED Code(s): 774006186 Comment: - MRI brain shows right frontal and parietal infarcts - Work with OT for LUE symptoms which are improving - OT recommends cock-up splint - Statin started 05/04 Status and Disposition: - Remain Inpatient - Currently stable
[2017-05-05] MEDS: Atorvastatin* 40 MG TAB PO SCH (16:34)
[2017-05-05] MEDS: hydrOXYzine HCL TAB* 25 MG PO PRN (16:53)
[2017-05-05] MEDS: Diltiazem CD CAP* 120 MG PO SCH (18:01)
[2017-05-05] MEDS: Albuterol HFA INHALER* 8 gm MDI INH PRN (18:18)
--- NOTE | 2017-05-05 18:44 | CONS ---
NEUROLOGY FOLLOWUP NOTE: DATE OF FOLLOWUP: 05/05/17 HOSPITALIST: Dr. Mague Hopkins. LOCATION: She is in room 445. CHIEF COMPLAINT: Left arm weakness. INTERVAL HISTORY: Since yesterday, Ms. Glover feels that she is not getting any better, but she has been told by other providers that it does seem like her arm is stronger. She says she is feeling pretty down about it. She has no new symptoms. She does not have any shortness of breath or chest pain. She has tingling in her left hand, but no pain. She is able to walk and feels a little bit unsteady, but does not feel that one leg is weaker than the other. MEDICATIONS: Reviewed and she is on, 1. Albuterol inhaler q.4 hours p.r.n. 2. Atorvastatin 40 mg p.o. daily. 3. Plavix 75 mg p.o. daily. 4. Cymbalta 60 mg p.o. daily. 5. Heparin infusion. 6. Levothyroxine 175 mcg p.o. daily. 7. Metoprolol 25 mg p.o. b.i.d. 8. Protonix 40 mg p.o. b.i.d. 9. Quetiapine 200 mg p.o. q.h.s. PHYSICAL EXAM: On exam, she is afebrile, temperature 98.4 orally. Blood pressure is fluctuating, most recently 168/82, but prior to that 143/76. Heart rate is in the 70s and seems regular, and respirations are 16. Oxygen saturation is 99% on room air. Neurologically, eye movements and visual barron are normal. Facial musculature is symmetric. Palate and tongue are normal and speech is clear. On motor exam, she has pretty good strength in the legs and right arm. She has grade IV weakness of proximal left upper extremity musculature. She still has trace wrist flexion and no wrist extension on the left, and no finger flexion or extension. LABORATORY DATA: From today, notable for unchanged CBC with hemoglobin stable at 9.4, platelet count 338,000. INR today is 78. Chemistry profile notable for sodium back up to normal at 133. IMPRESSION AND PLAN: Impression is that of a small right motor strip infarction causing left arm weakness. She has atheromatous disease, but also some evidence of an inferior wall myocardial infarction, so it may be cardioembolic. The cardiac status is still being sorted out. If she does not undergo a cardiac catheterization, I would discharge her on probably Coumadin for a couple of months and then switch to anti-platelet therapy. If she undergoes cardiac catheterization, then I will defer on making a final recommendation until that is complete and I discuss with the hybrid car mechanic. [id number]/[facility] #: [id number] NICOLE
[2017-05-05] MEDS: Metoprolol Succinate XL TAB* 25 MG PO SCH (21:20)
[2017-05-05] MEDS: QUEtiapine TAB* 100 MG PO SCH (21:20)
[2017-05-06] MEDS: HYDROcodone/ACETAMIN 5-325 MG* 1 TAB PO PRN ×5 (03:30→21:02)
[2017-05-06] MEDS: Levothyroxine TAB* 175 MCG TAB PO SCH (05:41)
[2017-05-06 05:59] LABS: BUN/Creatinine Ratio 18.3 (8-20); Calcium 8.2 mg/dL (8.6-10.3); Magnesium 1.3 mg/dL (1.9-2.7)
[2017-05-06 06:02] LABS: Troponin I 0.19 ng/mL (<0.04)
[2017-05-06 06:09] LABS: Potassium 5.3 mmol/L (3.5-5.0)
[2017-05-06] MEDS: CMC: Pantoprazole TAB (NF) 40 MG TAB PO SCH ×2 (07:27→21:03)
[2017-05-06] MEDS: Clopidogrel TAB* 75 MG PO SCH (07:27)
[2017-05-06] MEDS: hydrOXYzine HCL TAB* 25 MG PO PRN ×2 (07:27→16:31)
[2017-05-06] MEDS: DULoxetine DR CAP* 60 MG CAP.DR PO SCH (07:27)
[2017-05-06] MEDS: Potassium Chlor TAB* 20 MEQ TAB.ER PO SCH ×2 (07:28→14:55)
[2017-05-06] MEDS: Metoprolol Succinate XL TAB* 25 MG PO SCH ×2 (08:57→21:02)
[2017-05-06] MEDS: Diltiazem CD CAP* 120 MG PO SCH (10:52)
--- NOTE | 2017-05-06 11:10 | RAD ---
Edited for charges. HISTORY: N STEMI risk assessment, diabetes, hypertension, hyperlipidemia COMPARISONS: March 17, 2017, CT of the chest dated May 02, 2017 TECHNIQUE: A 1 day stress/rest myocardial perfusion study was performed, with exercise stress. The exercise portion was performed using the Grupo protocol, for a total METs of 6. The stress portion was monitored by Dr. Jim. Gated SPECT imaging was performed, with CT-based attenuation correction DOSE: Stress: Technetium 99m tetrofosmin, 26.84 millicuries, injected at 9:39 AM on May 06, 2017 Rest: Technetium 99m tetrofosmin, 10.7 millicuries, injected at 7:15 AM on May 06, 2017 Pharmacologic agent: None FINDINGS: CARDIAC MONITORING: Peak heart rate of 114, 74% of predicted. EF: 61% TID: 1.11 MOTION: Normal motion, with normal wall thickening. PERFUSION: There is a fixed defect of the lateral wall, stable OTHER: None IMPRESSION: LIMITED STUDY SECONDARY SUBMAXIMAL STRESS. FIXED DEFECT OF THE LATERAL WALL SUGGESTIVE OF PREVIOUS INFARCT, STABLE. ASSESSMENT: INTERMEDIATE RISK. Based on imaging criteria from ACC/AHA 2002. Guideline Update for the Management of Patient's with Chronic Stable Angina, table 23. Noninvasive Risk Stratification. CPT II Codes: 3570F MTDD
--- NOTE | 2017-05-06 12:25 | PN ---
Subjective Date of Service: 05/06/17 - cc: left arm weakness. Interval History: No recurrence of chest pressure. LUE weakness unchanged. Medications Active Medications: Hydrocodone Bitart/Acetaminophen ([place] 5-325 Tab*) 1 tab PO Q4H PRN PRN Reason: PAIN Last Admin: 05/06/17 11:27 Dose: 1 tab Albuterol (Ventolin 2.5 Mg/3 Ml Neb.Tracey*) 2.5 mg INH Q4H PRN PRN Reason: SOB/WHEEZING Albuterol (Ventolin Hfa Inhaler*) 2 puff INH Q4H PRN PRN Reason: SOB/WHEEZING Last Admin: 05/05/17 18:18 Dose: 2 puff Atorvastatin Calcium (Lipitor*) 40 mg PO 1700 [facility] Last Admin: 05/05/17 16:34 Dose: 40 mg Clopidogrel Bisulfate (Plavix Tab*) 75 mg PO DAILY [facility] Last Admin: 05/06/17 07:27 Dose: 75 mg Diltiazem HCl (Cardizem Cd Cap*) 120 mg PO DAILY [facility] Last Admin: 05/06/17 10:52 Dose: 120 mg Duloxetine HCl (Cymbalta Cap*) 60 mg PO DAILY [facility] Last Admin: 05/06/17 07:27 Dose: 60 mg Hydroxyzine HCl (Atarax Tab*) 25 mg PO Q6H PRN PRN Reason: ANXIETY Last Admin: 05/06/17 07:27 Dose: 25 mg Ipratropium [place] (Atrovent 0.5 Mg Neb.Tracey*) 0.5 mg INH QID PRN PRN Reason: SOB/WHEEZING Levothyroxine Sodium (Synthroid Tab*) 175 mcg PO 0600 [facility] Last Admin: 05/06/17 05:41 Dose: 175 mcg Metoprolol Succinate (Toprol Xl Tab*) 25 mg PO BID [facility] Last Admin: 05/06/17 08:57 Dose: Not Given Mometasone Furoate (Asmanex 220 Mcg Mdi *) 2 puff INH QPM [facility] Last Admin: 05/05/17 18:20 Dose: 2 puff Pantoprazole Sodium (Protonix Tab (Nf)) 40 mg PO BID [facility] Last Admin: 05/06/17 07:27 Dose: 40 mg Potassium Chloride (Klor Con Er Tab*) 20 meq PO TID [facility] Last Admin: 05/06/17 07:28 Dose: 20 meq Quetiapine Fumarate (Seroquel Tab*) 200 mg PO BEDTIME [facility] Last Admin: 05/05/17 21:20 Dose: 200 mg Objective Vital Signs: Temp Pulse Resp BP Pulse Ox 97.5 F 72 16 132/76 99 05/06/17 03:15 05/06/17 03:50 05/06/17 11:27 05/06/17 03:15 05/06/17 03:50 Oxygen Devices in Use Now: None Appearance: petite somewhat older woman, appears older than stated age, no acute distress Eyes: No Scleral Icterus, PERRLA Ears/Nose/Mouth/Throat: Clear Oropharnyx, Mucous Membranes Moist Neck: NL Appearance and Movements; NL JVP, No Thyroid Enlargement, Masses Respiratory: Symmetrical Chest Expansion and Respiratory Effort - diffuse rhonchi that improved with coughing. Cardiovascular: NL Sounds; No Murmurs; No JVD, RRR Abdominal: NL Sounds; No Tenderness; No Distention, No Hepatosplenomegaly Extremities: No Edema - LUE weak, unable to lift, flacid, full formal neuro exam not done. 1-2+ DPD, no bruits over femorals Skin: No Rash or Ulcers Neurological: Alert and Oriented x 3, NL Gait Lines/Tubes/Other Access: Clean, Dry and Intact Peripheral IV Laboratory Results: 05/05/17 08:05 05/06/17 05:24 INR (Anticoag Therapy) 0.80 (0.77-1.02) 05/01/17 18:56 APTT 71.2 seconds (26.0-36.3) H 05/05/17 15:21 Total Bilirubin 0.40 mg/dL (0.2-1.0) 05/01/17 18:56 AST 45 U/L (13-39) H 05/01/17 18:56 ALT 20 U/L (7-52) 05/01/17 18:56 Alkaline Phosphatase 62 U/L (34-104) 05/01/17 18:56 Total Protein 6.5 g/dL (6.4-8.9) 05/01/17 18:56 Albumin 3.8 g/dL (3.2-5.2) 05/01/17 18:56 Globulin 2.7 g/dL (2-4) 05/01/17 18:56 Albumin/Globulin Ratio 1.4 (1-3) 05/01/17 18:56 Triglycerides 164 mg/dL 05/04/17 05:28 Cholesterol 238 mg/dL 05/04/17 05:28 LDL Cholesterol 122 mg/dL 05/04/17 05:28 HDL Cholesterol 82.9 mg/dL 05/04/17 05:28 TSH 8.14 mcIU/mL (0.34-5.60) H 05/01/17 18:56 05/01/17 05/02/17 05/02/17 23:01 01:22 05:17 Troponin I 1.00 H* 1.46 H* 1.36 H* 05/06/17 05:24 Troponin I 0.19 H* Diagnostic Imaging: Ex nuc: symptom limited, target hr not achieved, maximal exercise and no inducible ischemia at workload achieved, normal EF. Legs limited activity EKG Data: NSR Assessment/Plan 66 year old female patient s/p NSTEMI and thrombo-embolic right frontal/ parietal brain infarcts. CAD: No chest pressure with testing. No ischemia. Continue with medical management and possible cath 1 month after CVA. Pt state she will stop smoking. Continue with aggressive risk factor modification. Doing well on anti platelet, BB, CCB , statin. Low index for ACEI to be started, but BP goals per neuro. Elevated KCl: I recommend decreasing KCl replacement. CVA/anemia/lung CA being addressed by hospitalist team.
--- NOTE | 2017-05-06 12:55 | PN ---
Subjective Date of Service: 05/06/17 Interval History: Ms. Glover states that she is feeling well today. She continues to have little to no movement in her left hand but does have greater strength at the shoulder to lift her arm. She denies other complaint including chest pain, SOB , nausea, or abdominal pain. Objective Active Medications: Hydrocodone Bitart/Acetaminophen ([place] 5-325 Tab*) 1 tab PO Q4H PRN Albuterol (Ventolin 2.5 Mg/3 Ml Neb.Tracey*) 2.5 mg INH Q4H PRN Albuterol (Ventolin Hfa Inhaler*) 2 puff INH Q4H PRN Atorvastatin Calcium (Lipitor*) 40 mg PO 1700 [facility] Clopidogrel Bisulfate (Plavix Tab*) 75 mg PO DAILY [facility] Diltiazem HCl (Cardizem Cd Cap*) 120 mg PO DAILY [facility] Duloxetine HCl (Cymbalta Cap*) 60 mg PO DAILY [facility] Hydroxyzine HCl (Atarax Tab*) 25 mg PO Q6H PRN Ipratropium [place] (Atrovent 0.5 Mg Neb.Rtacey*) 0.5 mg INH QID PRN Levothyroxine Sodium (Synthroid Tab*) 175 mcg PO 0600 [facility] Metoprolol Succinate (Toprol Xl Tab*) 25 mg PO BID [facility] Mometasone Furoate (Asmanex 220 Mcg Mdi *) 2 puff INH QPM [facility] Pantoprazole Sodium (Protonix Tab (Nf)) 40 mg PO BID [facility] Potassium Chloride (Klor Con Er Tab*) 20 meq PO TID [facility] Quetiapine Fumarate (Seroquel Tab*) 200 mg PO BEDTIME [facility] Vital Signs - 8 hr 05/06/17 05/06/17 05/06/17 07:27 08:00 10:54 Respiratory 16 16 16 Rate 05/06/17 11:27 Respiratory 16 Rate Oxygen Devices in Use Now: None Appearance: Female lying in bed in NAD Eyes: No Scleral Icterus Ears/Nose/Mouth/Throat: Mucous Membranes Moist Neck: Trachea Midline Respiratory: Symmetrical Chest Expansion and Respiratory Effort, Clear to Auscultation Cardiovascular: NL Sounds; No Murmurs; No JVD, No Edema Abdominal: NL Sounds; No Tenderness; No Distention Extremities: No Edema Skin: No Rash or Ulcers Neurological: Alert and Oriented x 3, - - No finger movement or senior account clerk on left, + 5 strength RUE and R/L LE Nutrition: Taking PO's Result Diagrams: 05/05/17 08:05 05/06/17 05:24 Additional Lab and Data: Abnormal Lab Results 05/04/17 07:40 WBC RBC Hgb Hct MCV MCH MCHC RDW Plt Count MPV Neut % (Auto) Lymph % (Auto) [place] % (Auto) Eos % (Auto) Baso % (Auto) Absolute Neuts (auto) Absolute Lymphs (auto) Absolute Monos (auto) Absolute Eos (auto) Absolute Basos (auto) Absolute Nucleated RBC Nucleated RBC % APTT 52.8 H BUN Triglycerides Cholesterol LDL Cholesterol HDL Cholesterol Diagnostic Imaging: CHEST CT 04/02/17 - NO PE EKG Data: RSR on tele with no new interval changes Assess/Plan/Problems-Billing Assessment: Ms. Glover is a 66 year old female with a PMH of COPD, lung cancer, hypertension and hyperlipidemia who was admitted on 05/01/17 with left upper extremity weakness, ultimately found to have NSTEMI and thrombo-embolic right frontal/parietal brain infarcts. - Patient Problems (1) Acute CVA (cerebrovascular accident) Comment: - Minimal improvement in LUE strength. - MRI brain shows right frontal and parietal infarcts - Suspected thromboembolic source, no events noted on telemetry. - Plan to treat with coumadin with lovenox bridge, with plavix, after discussion with cards and neuro. - Continue atorvastatin. - Continue OT for LUE weakness, which are improving. OT recommends cock-up splint (2) NSTEMI (non-ST elevated myocardial infarction) Comment: - Troponin peaked at 1.46. - Nuc Med stress test showed no active ischemia but fixed defect in the lateral wall. - Appreciate cardiology consult, plan for cardiac cath one month after CVA. - Plan to start coumadin with lovenox bridge. Continue atorvastatin, plavix, and metoprolol. Will not start ACEI now in setting of acute CVA due to relatively low BP. (3) Hypertension Comment: - SBP 100-130s. - Continue diltiazem, metoprolol. (4) Hypothyroidism Comment: - TSH = 8.14 at admission - Continue levothyroxine at 175mcg for now (5) COPD (chronic obstructive pulmonary disease) Comment: - Continue inhalers and home meds - Currently stable (6) History of lung cancer Comment: - CT chest with small pulmonary nodule, unclear significance, otherwise no interval changes from last. (7) Tobacco abuse Comment: - Continue to halfway house counselor on cessation given hx (8) Depression Comment: - Continue seroquel and cymbalta - Mood somewhat labile today with mixed anxiety - Will order hydroxyzine PRN given hx of substance abuse - would avoid benzos (9) GERD (gastroesophageal reflux disease) Comment: - Protonix BID (10) Hyponatremia Comment: - Chronic, stable. - Continue 2L fluid restriction. (11) DVT prophylaxis Comment: - lovenox bridge with coumadin (12) Full code status Comment: - Full code Status and Disposition: Inpatient. Anticipate discharge to home with services.
[2017-05-06 14:21] LABS: Free T4 1.14 ng/dL (0.61-1.12)
[2017-05-06] MEDS: Enoxaparin(*) 60 MG/0.6 ML SYR SUBCUT SCH (14:55)
--- NOTE | 2017-05-06 15:58 | CONS ---
CC: Dr. Jim * NEUROLOGY CONSULT FOLLOWUP NOTE: DATE OF CONSULT: 05/05/17 HOSPITALIST: Angelique Linton NP LOCATION: She is in room 445. CHIEF COMPLAINT: Left arm weakness. INTERVAL HISTORY: Since yesterday, Ms. Glover notes maybe some improvement in her proximal left upper extremity weakness, but no change in her distal left upper extremity weakness. I spoke with Dr. Jim and the plan is to have a cardiac catheterization in about a month. I spoke with Angelique Linton as well and my recommendation is that she be anticoagulated for presumptive cardiogenic embolism in the setting of her acute [place] with warfarin. Dr. Jim, I believe would like the patient on Plavix as well and I am okay with that at least for the next couple of months. If she does not go into atrial fibrillation with longer-term monitoring over the next few months, then I would switch her to antiplatelet monotherapy. MEDICATIONS: Reviewed and currently she is on: 1. Albuterol inhaler. 2. Lipitor. 3. Plavix 75 mg p.o. daily. 4. Cardizem 120 mg p.o. daily. 5. Cymbalta 60 mg p.o. daily. 6. Lovenox 45 mg q.12 h. subcutaneous. 7. Atarax 25 mg p.o. q.6 hours as needed for anxiety. 8. Levothyroxine 175 mcg p.o. daily. 9. Metoprolol 25 mg p.o. b.i.d. 10. Seroquel 200 mg p.o. q.h.s. 11. Protonix 40 mg p.o. b.i.d. PHYSICAL EXAM: I did not examine Jessi today. I explained the rationale behind the anticoagulation. I would like to see her in followup in my office in a few weeks. I spoke with Dr. Jim and agreed that at least a month or more monitoring for atrial fibrillation is reasonable, but in the meantime she is going to be anticoagulated anyway. Over 50 % of the 20 minute visit was spent in face to face counseling and education including risks(bleeding) and benefits(decreased risk of stroke) of anticoagulation and need for follow up. [id number]/[facility] #: [id number] [facility] CENTERMadyson
[2017-05-06] MEDS: Atorvastatin* 40 MG TAB PO SCH (16:30)
[2017-05-06] MEDS ORDERED: Warfarin TAB(*) 5 MG PO SCH (17:00)
[2017-05-06] MEDS: QUEtiapine TAB* 100 MG PO SCH (21:03)
[2017-05-06] MEDS: Albuterol HFA INHALER* 8 gm MDI INH PRN (21:33)
[2017-05-06] MEDS: Mometasone 220 MCG MDI INH SCH (21:37)
[2017-05-07] MEDS: Enoxaparin(*) 60 MG/0.6 ML SYR SUBCUT SCH (02:46)
[2017-05-07] MEDS: HYDROcodone/ACETAMIN 5-325 MG* 1 TAB PO PRN ×2 (02:46→07:31)
[2017-05-07] MEDS: Levothyroxine TAB* 175 MCG TAB PO SCH (05:13)
[2017-05-07] MEDS: hydrOXYzine HCL TAB* 25 MG PO PRN (05:19)
[2017-05-07 07:21] LABS: BUN/Creatinine Ratio 18.1 (8-20); Calcium 8.5 mg/dL (8.6-10.3); EGFR African American 76.9 (>60); EGFR Non-African American 59.8 (>60); Potassium 4.8 mmol/L (3.5-5.0)
[2017-05-07 07:27] VITALS: BP 140/86
[2017-05-07] MEDS: Diltiazem CD CAP* 120 MG PO SCH (07:31)
[2017-05-07] MEDS: CMC: Pantoprazole TAB (NF) 40 MG TAB PO SCH (07:31)
[2017-05-07] MEDS: Clopidogrel TAB* 75 MG PO SCH (07:31)
[2017-05-07] MEDS: DULoxetine DR CAP* 60 MG CAP.DR PO SCH (07:31)
[2017-05-07] MEDS: Metoprolol Succinate XL TAB* 25 MG PO SCH (07:31)
--- NOTE | 2017-05-07 07:39 | PN ---
Subjective Date of Service: 05/07/17 Interval History: Mr. Glover states that she is feeling quite well today and is eager for discharge to home. She continues to have left hand paralysis. Objective Active Medications: Hydrocodone Bitart/Acetaminophen (Walton 5-325 Tab*) 1 tab PO Q4H PRN Albuterol (Ventolin 2.5 Mg/3 Ml Neb.Tracey*) 2.5 mg INH Q4H PRN Albuterol (Ventolin Hfa Inhaler*) 2 puff INH Q4H PRN Atorvastatin Calcium (Lipitor*) 40 mg PO 1700 [facility] Clopidogrel Bisulfate (Plavix Tab*) 75 mg PO DAILY [facility] Diltiazem HCl (Cardizem Cd Cap*) 120 mg PO DAILY [facility] Duloxetine HCl (Cymbalta Cap*) 60 mg PO DAILY [facility] Enoxaparin Sodium (Lovenox(*)) 45 mg SUBCUT Q12H [facility] Hydroxyzine HCl (Atarax Tab*) 25 mg PO Q6H PRN Ipratropium Brodnax (Atrovent 0.5 Mg Neb.Tracey*) 0.5 mg INH QID PRN Levothyroxine Sodium (Synthroid Tab*) 175 mcg PO 0600 [facility] Metoprolol Succinate (Toprol Xl Tab*) 25 mg PO BID [facility] Mometasone Furoate (Asmanex 220 Mcg Mdi *) 2 puff INH QPM [facility] Pantoprazole Sodium (Protonix Tab (Nf)) 40 mg PO BID [facility] Pharmacy Profile Note (Coumadin Daily Reminder*) 1 note FOLLOW UP 1700 [facility] Quetiapine Fumarate (Seroquel Tab*) 200 mg PO BEDTIME [facility] Warfarin Sodium (Coumadin Tab(*)) 5 mg PO DAILY@1700 [facility] Vital Signs: Temp Pulse Resp BP Pulse Ox 97.4 F 62 16 140/86 100 05/07/17 07:24 05/07/17 07:24 05/07/17 07:31 05/07/17 07:24 05/07/17 07:24 Oxygen Devices in Use Now: None Appearance: Female sitting up in chair in NAD Eyes: No Scleral Icterus Ears/Nose/Mouth/Throat: Mucous Membranes Moist Neck: Trachea Midline Respiratory: Symmetrical Chest Expansion and Respiratory Effort, Clear to Auscultation Cardiovascular: NL Sounds; No Murmurs; No JVD, No Edema Abdominal: NL Sounds; No Tenderness; No Distention Extremities: No Edema Skin: No Rash or Ulcers Neurological: Alert and Oriented x 3, - - left hand paralysis, no other focal abnormality Nutrition: Taking PO's Result Diagrams: 05/05/17 08:05 05/07/17 06:40 Additional Lab and Data: Vital Signs: Temp Pulse Resp BP Pulse Ox 97.4 F 62 18 140/86 100 05/07/17 07:24 05/07/17 07:24 05/07/17 08:00 05/07/17 07:24 05/07/17 07:24 Diagnostic Imaging: CHEST CT 04/02/17 - NO PE EKG Data: RSR on tele with no new interval changes Assess/Plan/Problems-Billing Assessment: Ms. Glover is a 66 year old female with a PMH of COPD, lung cancer, hypertension and hyperlipidemia who was admitted on 05/01/17 with left upper extremity weakness, ultimately found to have NSTEMI and thrombo-embolic right frontal/parietal brain infarcts. - Patient Problems (1) Acute CVA (cerebrovascular accident) Comment: - Minimal improvement in LUE strength. - MRI brain shows right frontal and parietal infarcts - Suspected thromboembolic source related to acute [place], no events noted on telemetry. - Plan to treat with coumadin and plavix. Reviewed again with Dr. Mccauley and plan to discontinue lovenox bridge due to concern for bleeding. - Continue atorvastatin. - Continue OT for LUE weakness, which are improving. OT recommends cock-up splint (2) NSTEMI (non-ST elevated myocardial infarction) Comment: - Troponin peaked at 1.46. - Nuc Med stress test showed no active ischemia but fixed defect in the lateral wall. - Appreciate cardiology consult, plan for cardiac cath one month after CVA. - Plan to start coumadin with lovenox bridge. Continue atorvastatin, plavix, and metoprolol. Will not start ACEI now in setting of acute CVA due to relatively low BP. (3) Hypertension Comment: - SBP 100-130s. - Continue diltiazem, metoprolol. (4) Hypothyroidism Comment: - TSH 8.14, but free T4 appropriate. - Continue levothyroxine. (5) COPD (chronic obstructive pulmonary disease) Comment: - Continue inhalers and home meds - Currently stable (6) History of lung cancer Comment: - CT chest with small pulmonary nodule, unclear significance, otherwise no interval changes from last. - Recommend follow up imaging in 6 months. (7) Tobacco abuse Comment: - Continue to drapery counselor on cessation given hx (8) Depression Comment: - Continue seroquel and cymbalta - Mood somewhat labile today with mixed anxiety - Will order hydroxyzine PRN given hx of substance abuse - would avoid benzos (9) GERD (gastroesophageal reflux disease) Comment: - Protonix BID (10) Hyponatremia Comment: - Chronic, stable. - Continue 2L fluid restriction. (11) DVT prophylaxis Comment: - lovenox bridge with coumadin (12) Full code status Comment: - Full code Status and Disposition: Inpatient. Discharge to home.
--- NOTE | 2017-05-07 17:27 | ED ---
Lauren Winkler Thomas, scribed for Miesha Rivera MD on 05/01/17 at 1934 . Neurological HPI - HPI Summary HPI Summary: The pt is a 66 y/o F presenting to the ED c/o left arm weakness that was present today at 14:30 when she woke up. The patient slept for 16 hours last nightshe went to bed yesterday at 22:30 and woke up today at 14:30. Pt additionally c/o blurry vision in both eyes (onset today). Pt denies CP, SOB, nausea, vomiting, headache, double vision, abd pain, hematuria, bloody stools, leg swelling, rashes, ecchymosis, SI, and HI. She denies any drug or alcohol use today. She goes into anaphylaxis when she takes ASA. She is not on any blood thinners. - History of Current Complaint Chief Complaint: EDExtremityUpper Stated Complaint: STROKE LIKE SYMPTOMS Time Seen by Provider: 05/01/17 19:22 Hx Obtained From: Patient Onset/Duration: Started hours ago - onset today at 14:30, Still Present Timing: Constant Current Severity: Moderate Neurological Deficit Location: LUE Pain Intensity: 0 Pain Scale Used: 0-10 Numeric Character: Motor Weakness - to LUE Aggravating: Nothing Alleviating: Nothing Associated Signs and Symptoms: Positive: Weakness - LUE. Negative: Headache, Nausea/Vomiting, Neck Pain/Stiffness, Chest Pain, Shortness of Breath - Additional Pertinent History Primary Care Physician: [id number] - Allergy/Home Medications Allergies/Adverse Reactions: Allergies Allergy/AdvReac Type Severity Reaction Status Date / Time Aspirin Allergy Anaphylatic Verified 05/01/17 18:52 Shock Latex AdvReac Mild Rash Verified 05/01/17 18:52 PMH/Surg Hx/FS Hx/Imm Hx Previously Healthy: No Endocrine/Hematology History: Reports: Hx Thyroid Disease - hypothyroid, Other Endocrine/Hematological Disorders - Benign goiter Denies: Hx Bone Marrow Disease, Hx Diabetes, Hx Systemic Lupus Erythematosus Cardiovascular History: Reports: Hx Hypercholesterolemia - was high before cancer,now off meds., Hx Hypertension, Other Cardiovascular Problems/Disorders - patent foramen ovale; Murmur Denies: Hx Congestive Heart Failure, Hx Pacemaker/ICD Respiratory History: Reports: Hx Asthma, Hx Chronic Obstructive Pulmonary Disease (COPD), Hx Lung Cancer - Left upper lobectomy, Hx Pneumonia, Other Respiratory Problems/Disorders - lung cancer, LOBECTOMY 09/11/11 GI History: Reports: Hx Gastroesophageal Reflux Disease, Hx Hiatal Hernia, Other GI Disorders - hiatal hernia, colitis. 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, Hx Osteoporosis - Possible, Hx Scoliosis, Other Musculoskeletal History - scoliosis Denies: Hx Rheumatoid Arthritis Sensory History: Reports: Hx Cataracts - PATIENT STATES BEGINING OF CATARACTS LEFT EYE, Hx Contacts or Glasses, Hx Hearing Problem - right Denies: Hx Hearing Aid Opthamlomology History: Reports: Hx Cataracts - PATIENT STATES BEGINING OF CATARACTS LEFT EYE, Hx Contacts or Glasses Neurological History: Reports: Hx Headaches - frequent h/a's, Hx Migraine - Rare post menopause Psychiatric History: Reports: Hx Anxiety, Hx Depression, Hx Community Mental Health Tx, Hx Substance Abuse - opiods Denies: Hx Panic Disorder, Hx Inpatient Treatment - Cancer History Cancer Type, Location and Year: LUNG CA, DIAGNOSED July 2012 Hx Chemotherapy: Yes Hx Radiation Therapy: No Hx Palliative Cancer Treatment: No - Surgical History Surgery Procedure, Year, and Place: LEFT UPPER LUNG REMOVED 09/2012, HYSTERECTOMY , tonsillectomy Hx Anesthesia Reactions: No - Immunization History Date of Tetanus Vaccine: UTD Date of Influenza Vaccine: 05/01/16 Infectious Disease History: No Infectious Disease History: Denies: Hx of Known/Suspected MRSA, Traveled Outside the [place] in Last 30 Days - Family History Known Family History: Positive: Cardiac Disease - Sudden cardiac arrest (father) , Other - son -- glioblastoma. UC mother. Fhx of colitis. - Social History Alcohol Use: None Hx Substance Use: No Substance Use Type: Reports: Other Substance Use Comment - Amount & Last Used: percocet Hx Tobacco Use: Yes Smoking Status (MU): Heavy Every Day Tobacco Smoker Type: Cigarettes Amount Used/How Often: 1/2 pack a day Length of Time of Smoking/Using Tobacco: 47 years Have You Smoked in the Last Year: Yes Review of Systems Negative: Fever Positive: Blurred Vision. Negative: Diplopia Negative: Ear Ache Negative: Chest Pain Negative: Shortness Of Breath Negative: Abdominal Pain, Vomiting, Nausea, Other - bloody stools Negative: hematuria Negative: Edema Negative: Rash, Bruising Positive: Weakness - left arm. Negative: Headache Negative: Other - SI, HI All Other Systems Reviewed And Are Negative: No Physical Exam - Summary Physical Exam Summary: Appearance: Alert, conversive, nontoxic appearing. She smells like cigarettes. Skin: Warm, dry. There are some bruises to the upper extremities. No mottling, no rashes, no contusions. HEENT: EOMI, PERRL, moist mucous membranes Neck: No masses on the neck, supple Respiratory: Clear to auscultation, breath sounds present, no rales, no rhonchi , no wheezes Cardiovascular: RRR. There is a systolic ejection murmur 3/6. Pulses are symmetrical in both lower and upper extremities. Abdomen: Soft, non-tender Bowel Sounds: Present Musculoskeletal: No CVA tenderness, no obvious deformity, moving all extremities in a grossly normal manner Neurological: A&Ox3, CN II-XII Intact. Her left forearm is markedly weak. She is unable to make a fist with her left hand. She can raise her LUE slighlty but it falls after a few seconds. Psychiatric: Normal affect and mood Triage Information Reviewed: Yes Vital Signs On Initial Exam: Initial Vitals Temp Pulse Resp BP Pulse Ox 98.6 F 89 18 130/72 100 05/01/17 18:29 05/01/17 18:29 05/01/17 18:29 05/01/17 18:29 05/01/17 18:29 Vital Signs Reviewed: Yes - Remigio Coma Scale Coma Scale Total: 15 Diagnostics - Vital Signs Vital Signs Temp Pulse Resp BP Pulse Ox 05/01/17 19:00 47 21 75 05/01/17 18:50 95 05/01/17 18:30 72 86 05/01/17 18:29 98.6 F 89 18 130/72 100 - Laboratory Lab Results: Lab Results 05/01/17 05/01/17 05/01/17 Range/Units 18:56 18:56 18:56 WBC 8.9 (3.5-10.8) 10^3/ul RBC 3.57 L (4.0-5.4) 10^6/ul Hgb 10.9 L (12.0-16.0) g/dl Hct 33 L (35-47) % MCV 91 (80-97) fL MCH 31 (27-31) pg MCHC 34 (31-36) g/dl RDW 17 H (10.5-15) % Plt Count 357 (150-450) 10^3/ul MPV 8 (7.4-10.4) um3 Neut % (Auto) 80.0 (38-83) % Lymph % (Auto) 11.2 L (25-47) % Miner % (Auto) 7.4 (1-9) % Eos % (Auto) 0.7 (0-6) % Baso % (Auto) 0.7 (0-2) % Absolute Neuts (auto) 7.1 (1.5-7.7) 10^3/ul Absolute Lymphs (auto) 1.0 (1.0-4.8) 10^3/ul Absolute Monos (auto) 0.7 (0-0.8) 10^3/ul Absolute Eos (auto) 0.1 (0-0.6) 10^3/ul Absolute Basos (auto) 0.1 (0-0.2) 10^3/ul Absolute Nucleated RBC 0.01 10^3/ul Nucleated RBC % 0.1 INR (Anticoag Therapy) 0.80 (0.77-1.02) APTT 32.8 (26.0-36.3) seconds Sodium 125 L (133-145) mmol/L Potassium 3.7 (3.5-5.0) mmol/L Chloride 95 L (101-111) mmol/L Carbon Dioxide 22 (22-32) mmol/L Anion Gap 8 (2-11) mmol/L BUN 16 (6-24) mg/dL Creatinine 0.93 (0.51-0.95) mg/dL Est GFR ( Amer) 77.8 (>60) Est GFR (Non-Af Amer) 60.5 (>60) BUN/Creatinine Ratio 17.2 (8-20) Glucose 90 (70-100) mg/dL Lactic Acid (0.5-2.0) mmol/L Calcium 8.7 (8.6-10.3) mg/dL Total Bilirubin 0.40 (0.2-1.0) mg/dL AST 45 H (13-39) U/L ALT 20 (7-52) U/L Alkaline Phosphatase 62 (34-104) U/L Troponin I 1.21 H* (<0.04) ng/mL C-Reactive Protein 15.30 H (< 5.00) mg/L Total Protein 6.5 (6.4-8.9) g/dL Albumin 3.8 (3.2-5.2) g/dL Globulin 2.7 (2-4) g/dL Albumin/Globulin Ratio 1.4 (1-3) TSH Pending 05/01/17 Range/Units 18:56 WBC (3.5-10.8) 10^3/ul RBC (4.0-5.4) 10^6/ul Hgb (12.0-16.0) g/dl Hct (35-47) % MCV (80-97) fL MCH (27-31) pg MCHC (31-36) g/dl RDW (10.5-15) % Plt Count (150-450) 10^3/ul MPV (7.4-10.4) um3 Neut % (Auto) (38-83) % Lymph % (Auto) (25-47) % Miner % (Auto) (1-9) % Eos % (Auto) (0-6) % Baso % (Auto) (0-2) % Absolute Neuts (auto) (1.5-7.7) 10^3/ul Absolute Lymphs (auto) (1.0-4.8) 10^3/ul Absolute Monos (auto) (0-0.8) 10^3/ul Absolute Eos (auto) (0-0.6) 10^3/ul Absolute Basos (auto) (0-0.2) 10^3/ul Absolute Nucleated RBC 10^3/ul Nucleated RBC % INR (Anticoag Therapy) (0.77-1.02) APTT (26.0-36.3) seconds Sodium (133-145) mmol/L Potassium (3.5-5.0) mmol/L Chloride (101-111) mmol/L Carbon Dioxide (22-32) mmol/L Anion Gap (2-11) mmol/L BUN (6-24) mg/dL Creatinine (0.51-0.95) mg/dL Est GFR ( Amer) (>60) Est GFR (Non-Af Amer) (>60) BUN/Creatinine Ratio (8-20) Glucose (70-100) mg/dL Lactic Acid 0.7 (0.5-2.0) mmol/L Calcium (8.6-10.3) mg/dL Total Bilirubin (0.2-1.0) mg/dL AST (13-39) U/L ALT (7-52) U/L Alkaline Phosphatase (34-104) U/L Troponin I (<0.04) ng/mL C-Reactive Protein (< 5.00) mg/L Total Protein (6.4-8.9) g/dL Albumin (3.2-5.2) g/dL Globulin (2-4) g/dL Albumin/Globulin Ratio (1-3) TSH Result Diagrams: 05/01/17 18:56 05/01/17 18:56 Lab Statement: Any lab studies that have been ordered have been reviewed, and results considered in the medical decision making process. - CT CT Brain CT Interpretation: No Acute Changes - 1. Appearance of chronic microvascular disease is not significantly changed since the most recent CT of the brain dated March 19, 2017. 2. Paranasal sinus mucosal disease incidentally noted. CT Interpretation Completed By: Radiologist - EKG 19:44 Cardiac Rate: NL EKG Rhythm: Sinus Rhythm - at 85 BPM EKG Interpretation: Nonspecific ST T-waves in anterolateral leads. No acute findings. No AMI. Re-Evaluation - Re-Evaluation First Eval Re-Evaluation Time: 20:35 Change: Unchanged Comment: I discussed with the bedside nurse that the heparin bolus has not yet been given. Course/Dx - Course Assessment/Plan: The pt is a 66 y/o female complaining of left arm weakness that was present today at 14:30 when she woke up. The patient slept for 16 hours last night. Aspirin was not given because she goes into anaphylaxis when she takes aspirin. I did review the patients chart from 03/20/17 when she was slurring her speech and head a negative CT Head. I also reviewed the patients chart from 03/11/17 when she had chest pain. 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 She had been admitted numerous times. EKG shows sinus rhythm at [address] T-waves in anterolateral leads, no acute findings, and no AMI. CT Brain was obtained and no acute stroke is noted. I spoke with Dr. Rain, cardiology. He says that no intervention is needed right now. If cleared by neurology, he recommends Plavix 300 mg in the emergency department and then 75 mg daily after that. He also recommends IV heparin if cleared by neurology. I spoke with Dr. Mccauley, neurology. He states that the differential is stroke versus possible radial nerve palsy. Dr. Mccauley tells me that in the morning he may order an MRI and he will examine the patient in the morning. I discussed the patients elevated troponin and cardiology recommendations, and Dr. Granados is comfortable with Plavix and Heparin. Nurse practitioner Chrissy Pace will admit the patient. - Diagnoses Provider Diagnoses: Stroke vs radial nerve palsy - Physician Notifications Discussed Care Of Patient With: Dutch Rain Time Discussed With Above Provider: 20:01 Instructed by Provider To: Other - I spoke with Dr. Rain, cardiology. He says that no intervention is needed right now. If cleared by neurology, he recommends Plavix 300 mg in the emergency department and then 75 mg daily after that. He also recommends IV heparin if cleared by neurology. I spoke with Dr. Mccauley, neurology, at 20:12. He states that the differential is stroke versus possible radial nerve palsy. Dr. Mccauley tells me that in the morning he may order an MRI and he will examine the patient in the morning. I discussed the patients elevated troponin and cardiology recommendations, and Dr. Granados is comfortable with Plavix and Heparin. Nurse practitioner Chrissy Bello will admit the patient at 20:22. I spoke with Dr. Mccauley again at 20: 35. He requests heparin drip but no bolus. Discharge - Discharge Plan Condition: Stable Disposition: ADMITTED TO [facility] The documentation as recorded by the Lauren crawford Thomas accurately reflects the service I personally performed and the decisions made by me, Miesha Rivera MD.
--- NOTE | 2017-05-08 02:18 | DS ---
CC: Guerrero Gtz NP * HOSPITAL MEDICINE DISCHARGE SUMMARY: DATE OF ADMISSION: 05/01/17 DATE OF DISCHARGE: 05/07/17 PRIMARY CARE PROVIDER: Guerrero Gtz NP ATTENDING PHYSICIAN: Dr. Megan Garcia * (dictation provided by Angelique Linton NP ). PRIMARY DIAGNOSES: 1. Subacute ischemic infarct at the posterior right frontal lobe and anterior right parietal lobe, persistent left hand paralysis. 2. Non-ST elevation myocardial infarction. SECONDARY DIAGNOSES: 1. Chronic obstructive pulmonary disease. 2. History of lung cancer. 3. Anxiety. 4. Patent foramen ovale. 5. Hypothyroidism. 6. Chronic pain. 7. Hyperlipidemia. 8. Hypertension. 9. History of questionable pulmonary embolism. 10. Hyponatremia. 11. Status post left upper lobe lung resection. 12. Status post tonsillectomy. 13. Status post hysterectomy. MEDICATIONS: 1. Omeprazole 40 mg p.o. b.i.d. 2. Levothyroxine 150 mcg p.o. daily. 3. Ipratropium 0.5 mg inhaled q.i.d. p.r.n. 4. Fluticasone Flovent one puff inhaled b.i.d. 5. Cymbalta 60 mg p.o. daily. 6. Albuterol two puffs inhaled q.4 hours p.r.n. 7. Albuterol nebulizer 2.5 mg inhaled q.4 hours p.r.n. 8. Seroquel 200-300 mg p.o. at bedtime. 9. Warfarin 5 mg p.o. daily (new prescription). 10. Metoprolol succinate 25 mg p.o. daily (new prescription). 11. Lisinopril 5 mg p.o. daily (new prescription). 12. Clopidogrel 75 mg p.o. daily (new prescription). 13. Atorvastatin 40 mg p.o. daily (new prescription). HOSPITAL COURSE: Ms. Glover is a 66-year-old female who presented to the hospital on 05/01/17 with concern for inability to move her left arm. Please see the dictated H and P from Chrissy Pace for complete details. In brief, the patient had been hospitalized from 03/11/17 to 03/12/17 with complaints of chest tightness. At that time, she underwent a stress test and was found to have a large fixed defect at the lateral wall with marginal reversibility. At that point, it was recommended that she continue with medical management and follow up with Dr. Jim. The patient states she had not been able to do that as of yet. I will note that she was also seen on 04/07 in the emergency room for shortness of breath, but was discharged to home. The patient states on the day of admission, she woke up in the morning and was unable to move her left arm. She denied any other complaints. In the emergency room, she had an EKG that showed sinus rhythm with T-wave inversions in V2 and new ST depressions in V2 to V5, but this was similar to previous. CT brain showed paranasal sinus mucosal disorder, but no other acute finding. Her initial troponin was 1.21. Ms. Glover was admitted to the hospital out of concern for acute CVA with concomitant non-ST elevation NE based on her elevated troponin. The patient was seen in consultation by Dr. Mccauley from Neurology who recommended that the patient initially go on Plavix and a heparin drip. Dr. Rain also saw the patient in consultation from Cardiology. Mr. Glover had a transthoracic echocardiogram on the day of admission, which showed an intact ejection fraction of 55% to 60% with a relative hypokinesis of the mid to basal inferior segments. The basal inferior lateral, basal inferior and mid inferior wall segments were all hypokinetic. In comparison to previous echocardiogram from admission on February, it was noted that the inferior hypokinesis was less pronounced on that last echocardiogram. The patient had a CT chest on 05/02/17, which showed no change in previous asymmetric soft tissue density in the left breast, which was unchanged from February and September 2016 CTs, but it did note that there was a 4-mm pulmonary nodule that was not there on the previous two CT chest and that 6 months followup would be appropriate. The patient had an MRI of the brain on 05/03/17 , which showed "the constellation of findings is most consistent with subacute ischemic infarct at the posterior right frontal lobe and anterior right parietal lobe superior lobule. Negative for associated mass effect. The stigmata of chronic small vessel ischemic disease and mild interval progression compared with a 2013 exam stigmata of acute bilateral maxillary sinusitis." Ms. Glover was seen in consultation by Dr. Mccauley as well as Dr. Rain and Dr. Jim. The patient was initially placed on atorvastatin, Plavix and a heparin drip. She went on for a stress test on 05/06/17, which showed "limited study secondary to submaximal stress, fixed defect of the lateral wall suggestive of previous infarct stable." The recommendation at that time from Cardiology was that the patient undergo cardiac catheterization one month after stabilization from her CVA. There is concern that the patient's hypokinetic to akinetic wall motion abnormalities on echocardiogram led to the formation of a clot, which precipitated her CVA. For that reason, Coumadin is indicated. She has no known history of AFib and none was observed while she was here in telemetry. In consultation with Dr. Mccauley and Dr. Jim, plan was made for the patient to be started on Plavix as well as Coumadin. Discussion was undertaken about the need for a possible bridging therapy for the Coumadin and it was determined that the risk of bleeding outweighed the benefits. Further treatment includes the continuation of atorvastatin in the addition of a long- acting metoprolol and lisinopril. Ms. Glover is doing well today. She has persistent inability to move her left hand, but otherwise she has regained good strength on the rest of her arm. The plans are for her to be discharged home with occupational therapy services and to follow up closely with Dr. Jim and Dr. Mccauley. The patient also has appointment to see her primary care provider on Wednesday. DISPOSITION: To home. DIET: Low fat and low salt. ACTIVITY: As tolerated with occupational therapy services. FOLLOWUP PLANS: 1. Please follow up with Guerrero Gtz NP regarding this acute hospitalization. 2. Please follow up on lung nodule and soft tissue density noted on CT chest from this admission recommended in six months. 3. Please follow up with Dr. Jim regarding cardiac catheterization in approximately one month in adjustment of medications as needed. 4. Please follow up with Dr. Mccauley within the next 4 to 6 weeks regarding this acute CVA. TIME SPENT: Approximately 60 minutes were spent on the discharge of this patient, more than half that time was spent with the patient at the bedside reviewing the events of this hospitalization, performing the physical examination and reviewing my plan of care. ANGELIQUE LINTON, KNUCKLE BENDER [id number]/[facility] #: [id number] [facility]USMadyson
== END 2017-05-07 12:58 | disposition home health service (06) | DRG 64 ==
LOC: ED 18:25 → INTOOBSV 20:30 → OBSVTOIN 20:30 → MEDTELE 20:30
PROVIDERS: ADMIT Pediatrics; ATTEND Internal Medicine
DX: I63.411 Cerebral infarction due to embolism of right middle cerebral artery (principal); I21.4 Non-ST elevation (NSTEMI) myocardial infarction; J44.9 Chronic obstructive pulmonary disease, unspecified; E87.1 Hypo-osmolality and hyponatremia; Q21.1 Atrial septal defect; G83.24 Monoplegia of upper limb affecting left nondominant side; I10 Essential (primary) hypertension; F41.9 Anxiety disorder, unspecified; E03.9 Hypothyroidism, unspecified; G89.29 Other chronic pain; E78.5 Hyperlipidemia, unspecified; F17.210 Nicotine dependence, cigarettes, uncomplicated; Z85.118 Personal history of other malignant neoplasm of bronchus and lung; Z86.711 Personal history of pulmonary embolism; Z79.899 Other long term (current) drug therapy; Z88.6 Allergy status to analgesic agent; Z91.040 Latex allergy status; Z82.49 Family history of ischemic heart disease and other diseases of the circulatory system; Z83.3 Family history of diabetes mellitus; Z80.9 Family history of malignant neoplasm, unspecified; Z81.1 Family history of alcohol abuse and dependence; F10.21 Alcohol dependence, in remission; F11.10 Opioid abuse, uncomplicated
CPT/HCPCS: 36415; 70450; 70551; 71270; 72141; 78452; 80048; 80053; 80061; 80307; 83605; 83735; 84439; 84443; 84484; 84520; 85025; 85610; 85730; 86140; 93005; 93017; 93306; 94640; 97112; 99406; A9270-GY; A9502; J1650; J2060; Q9967

== ENCOUNTER 2017-05-16 21:47 | Emergency (ER) | payer MEDICARE ==
[2017-05-16] MEDS ORDERED: Aspirin TAB* 325 MG PO ONE (22:22)
[2017-05-16 22:36] LABS: Hematocrit 31 % (35-47); Hemoglobin 10.6 g/dl (12.0-16.0); Mean Corpuscular HGB Conc 34 g/dl (31-36); Mean Corpuscular Hemoglobin 31 pg (27-31); Mean Corpuscular Volume 93 fL (80-97); Mean Platelet Volume 8 um3 (7.4-10.4); Red Blood Count 3.38 10^6/ul (4.0-5.4); Red Cell Distribution Width 18 % (10.5-15); White Blood Count 7.3 10^3/ul (3.5-10.8)
[2017-05-16 22:39] LABS: Albumin 3.6 g/dL (3.2-5.2); BUN/Creatinine Ratio 13.2 (8-20); Calcium 8.8 mg/dL (8.6-10.3); EGFR African American 44.1 (>60); EGFR Non-African American 34.3 (>60); Globulin 2.7 g/dL (2-4); Potassium 4.3 mmol/L (3.5-5.0); Total Bilirubin 0.3 mg/dL (0.2-1.0); Total Protein 6.3 g/dL (6.4-8.9)
[2017-05-16 22:40] LABS: Troponin I 0.01 ng/mL (<0.04)
--- NOTE | 2017-05-17 02:07 | ED ---
Wilber Winkler Tiffany, scribed for Robbi Arriaga on 05/16/17 at 2242 . HPI Chest Pain - HPI Summary HPI Summary: This patient is a 66 year old F BIBA to [facility] with a chief complaint of chest pressure since this evening. The pressure radiates to the shoulder. The patient rates the pain 7/10 in severity. Symptoms aggravated by nothing. Symptoms alleviated by nothing. - History of Current Complaint Chief Complaint: EDChestWallPain Time Seen by Provider: 05/16/17 21:56 Hx Obtained From: Patient Onset/Duration: Started Minutes Ago - This evening, Still Present Current Severity: Moderate Pain Intensity: 7 Pain Scale Used: 0-10 Numeric Chest Pain Radiates: Yes Chest Pain Radiates To:: Shoulder - Left Character: Other: - Pressure Aggravating Factor(s): Nothing Alleviating Factor(s): Nothing - Additional Pertinent History Primary Care Physician: LUIS - Allergy/Home Medications Allergies/Adverse Reactions: Allergies Allergy/AdvReac Type Severity Reaction Status Date / Time Aspirin Allergy Anaphylatic Verified 05/01/17 18:52 Shock Latex AdvReac Mild Rash Verified 05/01/17 18:52 PMH/Surg Hx/FS Hx/Imm Hx Previously Healthy: No Endocrine/Hematology History: Reports: Hx Thyroid Disease - hypothyroid, Other Endocrine/Hematological Disorders - Benign goiter Denies: Hx Bone Marrow Disease, Hx Diabetes, Hx Systemic Lupus Erythematosus Cardiovascular History: Reports: Hx Angina - pressure, not pain, Hx Hypercholesterolemia - was high before cancer,now off meds., Hx Hypertension, Other Cardiovascular Problems/Disorders - patent foramen ovale; Murmur Denies: Hx Congestive Heart Failure, Hx Coronary Artery Disease, Hx Myocardial Infarction, Hx Pacemaker/ICD, Hx Valvular Heart Disease Respiratory History: Reports: Hx Asthma, Hx Chronic Obstructive Pulmonary Disease (COPD), Hx Lung Cancer - Left upper lobectomy, Hx Pneumonia, Other Respiratory Problems/Disorders - lung cancer, LOBECTOMY 09/11/11 GI History: Reports: Hx Gastroesophageal Reflux Disease, Hx Hiatal Hernia, Other GI Disorders - hiatal hernia, colitis. 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, Hx Osteoporosis - Possible, Hx Scoliosis, Other Musculoskeletal History - scoliosis Denies: Hx Rheumatoid Arthritis Sensory History: Reports: Hx Cataracts - PATIENT STATES BEGINING OF CATARACTS LEFT EYE, Hx Contacts or Glasses, Hx Hearing Problem - right Denies: Hx Hearing Aid Opthamlomology History: Reports: Hx Cataracts - PATIENT STATES BEGINING OF CATARACTS LEFT EYE, Hx Contacts or Glasses Neurological History: Reports: Hx Headaches - frequent h/a's, Hx Migraine - Rare post menopause Psychiatric History: Reports: Hx Anxiety, Hx Depression, Hx Community Mental Health Tx, Hx Substance Abuse - opiods Denies: Hx Panic Disorder, Hx Inpatient Treatment - Cancer History Cancer Type, Location and Year: LUNG CA, DIAGNOSED July 2012 Hx Chemotherapy: Yes Hx Radiation Therapy: No Hx Palliative Cancer Treatment: No - Surgical History Surgery Procedure, Year, and Place: LEFT UPPER LUNG REMOVED 09/2012, HYSTERECTOMY , tonsillectomy Hx Anesthesia Reactions: No - Immunization History Date of Tetanus Vaccine: UTD Date of Influenza Vaccine: 05/01/16 Infectious Disease History: No Infectious Disease History: Denies: Hx of Known/Suspected MRSA, Traveled Outside the [place] in Last 30 Days - Family History Known Family History: Positive: Cardiac Disease - Sudden cardiac arrest (father) , Other - son -- glioblastoma. UC mother. Fhx of colitis. - Social History Alcohol Use: None Hx Substance Use: No Substance Use Type: Reports: None, Other Substance Use Comment - Amount & Last Used: percocet Hx Tobacco Use: Yes Smoking Status (MU): Heavy Every Day Tobacco Smoker Type: Cigarettes Amount Used/How Often: 1/2 pack a day Length of Time of Smoking/Using Tobacco: 47 years Have You Smoked in the Last Year: Yes Review of Systems Negative: Fever Positive: Chest Pain - Radiates to left shoulder All Other Systems Reviewed And Are Negative: Yes Physical Exam - Summary Physical Exam Summary: Appearance: Well appearing, no pain distress Skin: warm, dry, reflects adequate perfusion Head/face: normal Eyes: EOMI, ADORE ENT: normal Neck: supple, non-tender Respiratory: CTA, breath sounds present Cardiovascular: RRR, pulses symmetrical Abdomen: non-tender, soft Bowel: present Musculoskeletal: normal, strength/ROM intact Neuro: normal, sensory motor intact, A&Ox3 Triage Information Reviewed: Yes Vital Signs On Initial Exam: Initial Vitals Temp Pulse Resp BP Pulse Ox 97.6 F 88 16 129/88 98 05/16/17 22:00 05/16/17 22:00 05/16/17 22:00 05/16/17 22:00 05/16/17 22:00 Vital Signs Reviewed: Yes Diagnostics - Vital Signs Vital Signs Temp Pulse Resp BP Pulse Ox 05/16/17 22:00 97.6 F 88 16 129/88 98 - Laboratory Lab Results: Lab Results 05/16/17 05/16/17 05/16/17 Range/Units 22:12 22:12 22:12 WBC 7.3 (3.5-10.8) 10^3/ul RBC 3.38 L (4.0-5.4) 10^6/ul Hgb 10.6 L (12.0-16.0) g/dl Hct 31 L (35-47) % MCV 93 (80-97) fL MCH 31 (27-31) pg MCHC 34 (31-36) g/dl RDW 18 H (10.5-15) % Plt Count 374 (150-450) 10^3/ul MPV 8 (7.4-10.4) um3 Neut % (Auto) 65.2 (38-83) % Lymph % (Auto) 21.8 L (25-47) % Millard % (Auto) 10.6 H (1-9) % Eos % (Auto) 1.6 (0-6) % Baso % (Auto) 0.8 (0-2) % Absolute Neuts (auto) 4.8 (1.5-7.7) 10^3/ul Absolute Lymphs (auto) 1.6 (1.0-4.8) 10^3/ul Absolute Monos (auto) 0.8 (0-0.8) 10^3/ul Absolute Eos (auto) 0.1 (0-0.6) 10^3/ul Absolute Basos (auto) 0.1 (0-0.2) 10^3/ul Absolute Nucleated RBC 0.01 10^3/ul Nucleated RBC % 0.1 INR (Anticoag Therapy) 2.97 H (0.77-1.02) APTT 58.9 H (26.0-36.3) seconds Sodium (133-145) mmol/L Potassium (3.5-5.0) mmol/L Chloride (101-111) mmol/L Carbon Dioxide (22-32) mmol/L Anion Gap (2-11) mmol/L BUN (6-24) mg/dL Creatinine (0.51-0.95) mg/dL Est GFR ( Amer) (>60) Est GFR (Non-Af Amer) (>60) BUN/Creatinine Ratio (8-20) Glucose (70-100) mg/dL Lactic Acid (0.5-2.0) mmol/L Calcium (8.6-10.3) mg/dL Total Bilirubin (0.2-1.0) mg/dL AST (13-39) U/L ALT (7-52) U/L Alkaline Phosphatase (34-104) U/L Troponin I (<0.04) ng/mL B-Natriuretic Peptide 182 H ( - 100) pg/mL Total Protein (6.4-8.9) g/dL Albumin (3.2-5.2) g/dL Globulin (2-4) g/dL Albumin/Globulin Ratio (1-3) 05/16/17 05/16/17 05/17/17 Range/Units 22:12 22:12 00:50 WBC (3.5-10.8) 10^3/ul RBC (4.0-5.4) 10^6/ul Hgb (12.0-16.0) g/dl Hct (35-47) % MCV (80-97) fL MCH (27-31) pg MCHC (31-36) g/dl RDW (10.5-15) % Plt Count (150-450) 10^3/ul MPV (7.4-10.4) um3 Neut % (Auto) (38-83) % Lymph % (Auto) (25-47) % Millard % (Auto) (1-9) % Eos % (Auto) (0-6) % Baso % (Auto) (0-2) % Absolute Neuts (auto) (1.5-7.7) 10^3/ul Absolute Lymphs (auto) (1.0-4.8) 10^3/ul Absolute Monos (auto) (0-0.8) 10^3/ul Absolute Eos (auto) (0-0.6) 10^3/ul Absolute Basos (auto) (0-0.2) 10^3/ul Absolute Nucleated RBC 10^3/ul Nucleated RBC % INR (Anticoag Therapy) (0.77-1.02) APTT (26.0-36.3) seconds Sodium 127 L (133-145) mmol/L Potassium 4.3 (3.5-5.0) mmol/L Chloride 96 L (101-111) mmol/L Carbon Dioxide 22 (22-32) mmol/L Anion Gap 9 (2-11) mmol/L BUN 20 (6-24) mg/dL Creatinine 1.52 H (0.51-0.95) mg/dL Est GFR ( Amer) 44.1 (>60) Est GFR (Non-Af Amer) 34.3 (>60) BUN/Creatinine Ratio 13.2 (8-20) Glucose 93 (70-100) mg/dL Lactic Acid 1.1 (0.5-2.0) mmol/L Calcium 8.8 (8.6-10.3) mg/dL Total Bilirubin 0.30 (0.2-1.0) mg/dL AST 15 (13-39) U/L ALT 9 (7-52) U/L Alkaline Phosphatase 63 (34-104) U/L Troponin I 0.01 0.01 (<0.04) ng/mL B-Natriuretic Peptide ( - 100) pg/mL Total Protein 6.3 L (6.4-8.9) g/dL Albumin 3.6 (3.2-5.2) g/dL Globulin 2.7 (2-4) g/dL Albumin/Globulin Ratio 1.3 (1-3) Result Diagrams: 05/16/17 22:12 05/16/17 22:12 Lab Statement: Any lab studies that have been ordered have been reviewed, and results considered in the medical decision making process. - Radiology CXR Radiology Interpretation Completed By: ED Physician - CXR is negative. - EKG 22:02 Cardiac Rate: NL EKG Rhythm: Sinus Rhythm - 88 BPM EKG Interpretation: No acute changes Chest Pain Course/Dx - Course Course Of Treatment: This patient is a 66 year old F BIBA to [facility] with a chief complaint of chest pressure since this evening. An EKG reveals sinus rhythm at 88 BPM and no acute changes. CXR reveals, per ED physician, is negative. Bloodwork obtained. In the ED course the patient was given Aspirin. I discussed patient care with Dr. Melton (hospitalist) who recommended a second troponin. He also advised that patient can be discharged with follow up from insurance billing specialist as outpatient. Patient will be discharged with follow up from PCP. The patient is agreeable with this plan. - Chest Pain Differential Diagnosis/HQI/PQRI: ACS, Angina, Chest Wall, Lower Respiratory Infection, Pulmonary Edema - Diagnoses Provider Diagnoses: Hyponatremia, Atypical chest pain - Provider Notifications Discussed Care Of Patient With: Timothy Melton Time Discussed With Above Provider: 00:07 Instructed by Provider To: Other - Dr. Melton (hospitalist) recommended a second troponin. He also said patient can be discharged with follow up from insurance billing specialist as outpatient. Discharge - Discharge Plan Condition: Stable Disposition: HOME Patient Education Materials: Chest Pain (ED), Hyponatremia (ED) Referrals: Guerre[facility] REFINER OPERATOR [Primary Care Provider] - 3 Days Additional Instructions: Follow up with PCP in 3 days. Return to the ED if you have any new or worsening symptoms. The documentation as recorded by the Wilber crawford Tiffany accurately reflects the service I personally performed and the decisions made by , Robbi Arriaga.
[2017-05-17 02:11] VITALS: BP 115/75
--- NOTE | 2017-05-17 07:39 | RAD ---
INDICATION: Chest pain COMPARISON: The uterus comparison chest x-ray April 07, 2017 TECHNIQUE: Single AP portable view of the chest was obtained. FINDINGS: Image quality is compromised due to the relative inferiority of a portable chest x-ray. Surgical clips are again seen overlying the upper left mediastinum. The heart and mediastinum exhibit normal size and contour. Similar to prior chest x-rays the left lung is slightly hypoplastic relative to the right and there is apparent thickening of the left lung base pleura also similar to the prior chest x-ray. Otherwise the Lungs are grossly clear. There is no evidence of a large pleural effusion. Visualized bones are normal for the patient's age. IMPRESSION: No radiographic evidence for acute cardiopulmonary abnormality on this portable chest x-ray.
== END 2017-05-17 02:10 | disposition home or self-care (01) ==
LOC: ED 21:47
DX: R07.89 Other chest pain (principal); E87.1 Hypo-osmolality and hyponatremia; E03.9 Hypothyroidism, unspecified; E04.9 Nontoxic goiter, unspecified; I20.9 Angina pectoris, unspecified; I10 Essential (primary) hypertension; E78.00 Pure hypercholesterolemia, unspecified; R01.1 Cardiac murmur, unspecified; J44.9 Chronic obstructive pulmonary disease, unspecified; Z85.118 Personal history of other malignant neoplasm of bronchus and lung; K21.9 Gastro-esophageal reflux disease without esophagitis; F41.9 Anxiety disorder, unspecified; F32.9 Major depressive disorder, single episode, unspecified; Z90.710 Acquired absence of both cervix and uterus; Z88.6 Allergy status to analgesic agent; Z91.040 Latex allergy status; F17.210 Nicotine dependence, cigarettes, uncomplicated
CPT/HCPCS: 36415; 71010; 80053; 83605; 83880; 84484; 85025; 85610; 85730; 93005; 99282

== ENCOUNTER 2017-05-17 10:58 | Inpatient (IN) | payer MEDICARE, BC ==
[2017-05-17] MEDS ORDERED: Morphine INJ* 4 MG/ML 1 ML CARPUJECT IV ONE (11:51)
[2017-05-17 12:16] LABS: ABS Basophils 0.1 10^3/ul (0-0.2); ABS Eosinophils 0.1 10^3/ul (0-0.6); ABS Lymphocytes 1.4 10^3/ul (1.0-4.8); ABS Monocytes 0.9 10^3/ul (0-0.8); ABS Neutrophils 6.1 10^3/ul (1.5-7.7); ABS Nucleated RBC 0 10^3/ul; Eosinophil % 0.6 % (0-6); Hematocrit 32 % (35-47); Hemoglobin 10.7 g/dl (12.0-16.0); Lymphocyte % 16.2 % (25-47); Mean Corpuscular HGB Conc 34 g/dl (31-36); Mean Corpuscular Hemoglobin 31 pg (27-31); Mean Corpuscular Volume 93 fL (80-97); Mean Platelet Volume 8 um3 (7.4-10.4); Nucleated Red Blood Cells % 0; Platelet Count 384 10^3/ul (150-450); Red Cell Distribution Width 18 % (10.5-15); White Blood Count 8.6 10^3/ul (3.5-10.8)
[2017-05-17 12:26] LABS: INR 2.02 (0.77-1.02)
[2017-05-17 12:32] LABS: EGFR Non-African American 47.8 (>60)
[2017-05-17] MEDS ORDERED: QUEtiapine TAB* 100 MG PO PRN (15:41)
[2017-05-17] MEDS ORDERED: Albuterol 2.5 MG/3 ML NEB.SOL* (0.083%) INH PRN (15:41)
[2017-05-17] MEDS ORDERED: Albuterol HFA INHALER* 8 gm MDI INH PRN (15:41)
[2017-05-17] MEDS ORDERED: Ipratropium 0.5MG/2.5ML NEB* 0.5 MG/2.5 ML NEB.SOLN INH PRN (15:41)
[2017-05-17] MEDS ORDERED: Diazepam TAB(*) 5 MG PO ONE (17:08)
[2017-05-17] MEDS ORDERED: diPHENhydraMINE PO* 25 MG PO ONE (17:08)
[2017-05-17] MEDS ORDERED: HYDROcodone/ACETAMIN 5-325 MG* 1 TAB PO PRN (17:13)
[2017-05-17] MEDS ORDERED: Magnesium Sulfate 2 GM IV* 2 GM/50 ML BAG IVPB ONE (17:13)
--- NOTE | 2017-05-17 18:10 | ED ---
Hammad Winkler Angela, scribed for Solo Seth MD on 05/17/17 at 1150 . HPI Chest Pain - HPI Summary HPI Summary: This pt is a 66 y/o female presenting to [facility] via EMS c/o left sided chest pressure pain since 05:00 today. Pt was in the ED yesterday for chest pressure, but "eased enough" that she was able to sleep, was discharged at 23:30-00:00. She states she slept 2-3 hours. This morning she was awaken by her chest pain and tingling in left arm, increased from baseline. Pt notes SOB which she reports is at baseline from her COPD. Pt was admitted to [facility] (05/01/17) for a stroke and NSTEMI, and her medications were changed. Pt is currently on Coumadin. PMHx includes anxiety, COPD. Had an albuterol treatment at home before EMS arrived to her home today. - History of Current Complaint Chief Complaint: EDChestPainROMI Hx Obtained From: Patient Onset/Duration: Started Hours Ago, Atraumatic, Still Present Timing: Lasting Hours Current Severity: Severe Pain Intensity: 8 Pain Scale Used: 0-10 Numeric Chest Pain Location: Left Anterior Chest Pain Radiates: No Character: Pressure/Squeezing - pressure Associated Signs and Symptoms: Positive: Tingling - in left arm, increased from baseline - Additional Pertinent History Primary Care Physician: [id number] - Allergy/Home Medications Allergies/Adverse Reactions: Allergies Allergy/AdvReac Type Severity Reaction Status Date / Time Aspirin Allergy Anaphylatic Verified 05/17/17 11:24 Shock Latex AdvReac Mild Rash Verified 05/17/17 11:24 Home Medications: Home Medications Gabapentin CAP(*) [Neurontin 300 CAP(*)] 300 mg PO TID PRN 05/17/17 [History Confirmed 05/17/17] Nabumetone TAB* [Relafen TAB*] 750 mg PO TID PRN 05/17/17 [History Confirmed ] PMH/Surg Hx/FS Hx/Imm Hx Endocrine/Hematology History: Reports: Hx Thyroid Disease - hypothyroid, Other Endocrine/Hematological Disorders - Benign goiter Denies: Hx Bone Marrow Disease, Hx Diabetes, Hx Systemic Lupus Erythematosus Cardiovascular History: Reports: Hx Angina - pressure, not pain, Hx Hypercholesterolemia - was high before cancer,now off meds., Hx Hypertension, Hx Myocardial Infarction - NSTEMI, Other Cardiovascular Problems/Disorders - patent foramen ovale; Murmur, Denies: Hx Congestive Heart Failure, Hx Coronary Artery Disease, Hx Pacemaker /ICD, Hx Valvular Heart Disease Respiratory History: Reports: Hx Asthma, Hx Chronic Obstructive Pulmonary Disease (COPD), Hx Lung Cancer - Left upper lobectomy, Hx Pneumonia, Other Respiratory Problems/Disorders - lung cancer, LOBECTOMY 09/11/11 GI History: Reports: Hx Gastroesophageal Reflux Disease, Hx Hiatal Hernia, Other GI Disorders - hiatal hernia, colitis. 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, Hx Osteoporosis - Possible, Hx Scoliosis, Other Musculoskeletal History - scoliosis Denies: Hx Rheumatoid Arthritis Sensory History: Reports: Hx Cataracts - PATIENT STATES BEGINING OF CATARACTS LEFT EYE, Hx Contacts or Glasses, Hx Hearing Problem - right Denies: Hx Hearing Aid Opthamlomology History: Reports: Hx Cataracts - PATIENT STATES BEGINING OF CATARACTS LEFT EYE, Hx Contacts or Glasses Neurological History: Reports: Hx Headaches - frequent h/a's, Hx Migraine - Rare post menopause Psychiatric History: Reports: Hx Anxiety, Hx Depression, Hx Community Mental Health Tx, Hx Substance Abuse - opiods Denies: Hx Panic Disorder, Hx Inpatient Treatment - Cancer History Cancer Type, Location and Year: LUNG CA, DIAGNOSED July 2012 Hx Chemotherapy: Yes Hx Radiation Therapy: No Hx Palliative Cancer Treatment: No - Surgical History Surgery Procedure, Year, and Place: LEFT UPPER LUNG REMOVED 09/2012, HYSTERECTOMY , tonsillectomy Hx Anesthesia Reactions: No - Immunization History Date of Tetanus Vaccine: UTD Date of Influenza Vaccine: 05/01/16 Infectious Disease History: No Infectious Disease History: Denies: Hx of Known/Suspected MRSA, Traveled Outside the [place] in Last 30 Days - Family History Known Family History: Positive: Cardiac Disease - Sudden cardiac arrest (father) , Other - son -- glioblastoma. UC mother. Fhx of colitis. - Social History Alcohol Use: None Hx Substance Use: No Substance Use Type: Reports: Other Substance Use Comment - Amount & Last Used: percocet Hx Tobacco Use: Yes Smoking Status (MU): Heavy Every Day Tobacco Smoker Type: Cigarettes Amount Used/How Often: 1/2 pack a day Length of Time of Smoking/Using Tobacco: 47 years Have You Smoked in the Last Year: Yes Review of Systems Negative: Fever, Chills Positive: Chest Pain Positive: Paresthesia - in left arm All Other Systems Reviewed And Are Negative: Yes Physical Exam - Summary Physical Exam Summary: Appearance: The patient is well-nourished in no acute distress and in no acute pain. Skin: The skin is warm and dry and skin color reflects adequate perfusion. HEENT: The head is normocephalic and atraumatic. The pupils are equal and reactive. The conjunctivae are clear and without drainage. Nares are patent and without drainage. Mouth reveals moist mucous membranes and the throat is without erythema and exudate. The external ears are intact. The ear canals are patent and without drainage. The tympanic membranes are intact. Neck: the neck is supple with full range of motion and non-tender. There are no carotid bruits. There is no neck vein distension. Respiratory: Chest is non-tender. There are crackles in the bases of the lungs. Cardiovascular: Heart is regular rate and rhythm. There is a loud harsh systolic ejection murmur. There is no peripheral edema and pulses are symmetrical and equal. Abdomen: The abdomen is soft and non-tender. There are normal bowel sounds heard in all four quadrants and there is no organomegaly palpated. Musculoskeletal: There is no back tenderness noted. Extremities are non-tender with full range of motion. There is good capillary refill. There is no peripheral edema or calf tenderness elicited. Neurological: Patient is alert and oriented to person, place and time. The patient has symmetrical motor strength in all four extremities. Cranial nerves are grossly intact. Deep tendon reflexes are symmetrical and equal in all four extremities. Psychiatric: The patient has an appropriate affect and does not exhibit any anxiety or depression. Triage Information Reviewed: Yes Vital Signs On Initial Exam: Initial Vitals BP 127/91 05/17/17 11:21 Vital Signs Reviewed: Yes - Remigio Coma Scale Coma Scale Total: 15 Diagnostics - Vital Signs Vital Signs Temp Pulse Resp BP Pulse Ox 05/17/17 11:23 96 18 74 05/17/17 11:22 97.2 F 101 20 127/91 100 05/17/17 11:21 127/91 - Laboratory Lab Results: Lab Results 05/17/17 05/17/17 05/17/17 Range/Units 12:07 12:07 12:07 WBC 8.6 (3.5-10.8) 10^3/ul RBC 3.40 L (4.0-5.4) 10^6/ul Hgb 10.7 L (12.0-16.0) g/dl Hct 32 L (35-47) % MCV 93 (80-97) fL MCH 31 (27-31) pg MCHC 34 (31-36) g/dl RDW 18 H (10.5-15) % Plt Count 384 (150-450) 10^3/ul MPV 8 (7.4-10.4) um3 Neut % (Auto) 71.3 (38-83) % Lymph % (Auto) 16.2 L (25-47) % [place] % (Auto) 10.8 H (1-9) % Eos % (Auto) 0.6 (0-6) % Baso % (Auto) 1.1 (0-2) % Absolute Neuts (auto) 6.1 (1.5-7.7) 10^3/ul Absolute Lymphs (auto) 1.4 (1.0-4.8) 10^3/ul Absolute Monos (auto) 0.9 H (0-0.8) 10^3/ul Absolute Eos (auto) 0.1 (0-0.6) 10^3/ul Absolute Basos (auto) 0.1 (0-0.2) 10^3/ul Absolute Nucleated RBC 0 10^3/ul Nucleated RBC % 0 INR (Anticoag Therapy) 2.02 H (0.77-1.02) Sodium (133-145) mmol/L Potassium (3.5-5.0) mmol/L Chloride (101-111) mmol/L Carbon Dioxide (22-32) mmol/L Anion Gap (2-11) mmol/L BUN (6-24) mg/dL Creatinine (0.51-0.95) mg/dL Est GFR ( Amer) (>60) Est GFR (Non-Af Amer) (>60) BUN/Creatinine Ratio (8-20) Glucose (70-100) mg/dL Lactic Acid (0.5-2.0) mmol/L Calcium (8.6-10.3) mg/dL Magnesium (1.9-2.7) mg/dL Total Bilirubin (0.2-1.0) mg/dL AST (13-39) U/L ALT (7-52) U/L Alkaline Phosphatase (34-104) U/L Troponin I (<0.04) ng/mL B-Natriuretic Peptide 87 ( - 100) pg/mL Total Protein (6.4-8.9) g/dL Albumin (3.2-5.2) g/dL Globulin (2-4) g/dL Albumin/Globulin Ratio (1-3) 05/17/17 05/17/17 Range/Units 12:07 12:07 WBC (3.5-10.8) 10^3/ul RBC (4.0-5.4) 10^6/ul Hgb (12.0-16.0) g/dl Hct (35-47) % MCV (80-97) fL MCH (27-31) pg MCHC (31-36) g/dl RDW (10.5-15) % Plt Count (150-450) 10^3/ul MPV (7.4-10.4) um3 Neut % (Auto) (38-83) % Lymph % (Auto) (25-47) % [place] % (Auto) (1-9) % Eos % (Auto) (0-6) % Baso % (Auto) (0-2) % Absolute Neuts (auto) (1.5-7.7) 10^3/ul Absolute Lymphs (auto) (1.0-4.8) 10^3/ul Absolute Monos (auto) (0-0.8) 10^3/ul Absolute Eos (auto) (0-0.6) 10^3/ul Absolute Basos (auto) (0-0.2) 10^3/ul Absolute Nucleated RBC 10^3/ul Nucleated RBC % INR (Anticoag Therapy) (0.77-1.02) Sodium 127 L (133-145) mmol/L Potassium 4.2 (3.5-5.0) mmol/L Chloride 100 L (101-111) mmol/L Carbon Dioxide 17 L (22-32) mmol/L Anion Gap 10 (2-11) mmol/L BUN 17 (6-24) mg/dL Creatinine 1.14 H (0.51-0.95) mg/dL Est GFR ( Amer) 61.5 (>60) Est GFR (Non-Af Amer) 47.8 (>60) BUN/Creatinine Ratio 14.9 (8-20) Glucose 91 (70-100) mg/dL Lactic Acid 0.9 (0.5-2.0) mmol/L Calcium 9.0 (8.6-10.3) mg/dL Magnesium 1.6 L (1.9-2.7) mg/dL Total Bilirubin 0.40 (0.2-1.0) mg/dL AST 15 (13-39) U/L ALT 10 (7-52) U/L Alkaline Phosphatase 60 (34-104) U/L Troponin I 0.01 (<0.04) ng/mL B-Natriuretic Peptide ( - 100) pg/mL Total Protein 6.5 (6.4-8.9) g/dL Albumin 3.8 (3.2-5.2) g/dL Globulin 2.7 (2-4) g/dL Albumin/Globulin Ratio 1.4 (1-3) Result Diagrams: 05/17/17 12:07 05/17/17 12:07 Lab Statement: Any lab studies that have been ordered have been reviewed, and results considered in the medical decision making process. - EKG 12:28 Cardiac Rate: Tachycardia EKG Rhythm: Sinus Tachycardia - at 100 bpm EKG Interpretation: [facility] Chest Pain Course/Dx - Course Course Of Treatment: Ms. Glover has presented three times since her recent NSTEMI. Her trops have been negative but I consulted Dr. Bauer and she is being admitted to the hospitalist service. - Diagnoses Provider Diagnoses: Chest pain - Provider Notifications Discussed Care Of Patient With: Kristian Bauer Time Discussed With Above Provider: 13:49 Instructed by Provider To: Other - I discussed pt care with Dr. Bauer, duco polisher. Discharge - Discharge Plan Condition: Stable Disposition: ADMITTED TO [facility] documentation as recorded by the Hammad crawford Angela accurately reflects the service I personally performed and the decisions made by me, Solo Seth MD.
[2017-05-17] MEDS: Gabapentin CAP(*) 300 MG PO PRN (18:18)
[2017-05-17] MEDS: Atorvastatin* 40 MG TAB PO SCH (18:18)
[2017-05-17] MEDS: Nitroglycerin TAB 0.4 MG* 0.4 MG TAB SL PRN ×2 (18:23→18:52)
[2017-05-17] MEDS ORDERED: Morphine INJ* 2 MG/ML 1 ML SYRINGE (TWO MG - NEW SYRINGE VERSION) IV ONE (18:57)
[2017-05-17] MEDS ORDERED: Morphine INJ* 2 MG/ML 1 ML SYRINGE (TWO MG - NEW SYRINGE VERSION) ONE (19:03)
[2017-05-17] MEDS: Pantoprazole TAB (NF) 40 MG TAB PO SCH (20:36)
[2017-05-17] MEDS ORDERED: NS 0.9% 500 ML* 500 ML IV ONE ×2 (21:04→21:31)
[2017-05-17] MEDS ORDERED: Naloxone* 0.4 MG/ML 1 ML VIAL ONE (21:17)
[2017-05-17] MEDS ORDERED: Naloxone* 0.4 MG/ML 1 ML VIAL IV PUSH ONE ×2 (21:31→21:55)
--- NOTE | 2017-05-17 21:36 | PN ---
Hospitalist Progress Note Date of Service: 05/17/17 Called at 1800 for complaints of worsening chest pain. One nitro given and bp Down to 92/66. Nurse repeat Bp now 120/70 and patient still with chest pain asked if ok to give second nitro. Seconds nitro ordered and ekg obtained. Ekg at base line. Recieved phone call that patient irina pain went up to 8 with second nitro. Morphine 2mg iv once ordered. After this intervention chest pain decreasing and down to a 3 at 1900 bp 98/70 and chest pain decreasing. Called at 2100 that bp 60/40. NS 500cc bolus ordered. Patient assessed at bedside with admitting provider. Pt noted to be drowsy pt recieved norco at 1830. ? narcs. As patient states she feels drowsy and is feeling well and no chest pain but stats feeling tried denies sob denies lightheadedness and denies near syncope. .4 narcan given and two 500cc bolus ordered mentation improving with narcan bp 74/50 given sencond 500cc bolus re-evaluting closely. Also patient given 200 seroquel suspect polypharmacy contributing to mentation and drowsiness hypotension ? secondary to narcotic and nitro s/l, will given second bolus and repeat updated covering attending they are in agreement.
--- NOTE | 2017-05-17 21:41 | PN ---
Hospitalist Progress Note Date of Service: 05/17/17 Pt re-eval bp trending up 88/60. Second bolus infusuing patient more awake suspect hypotension r/t narcotics.
[2017-05-17] MEDS: Mometasone 220 MCG MDI INH SCH (21:44)
--- NOTE | 2017-05-17 21:59 | PN ---
Hospitalist Progress Note Date of Service: 05/17/17 2100: called for hypotension, Pt found resting in bed drowsy, awake to verbal stimuli , answers questions appropriately. Pt is alert and oriented x 3. Denies chest pain. but falls to sleep during answering questions. BP 60/40. Narcan 0.4 mg IV slowly and NS 500cc IV bolus ordered. Patient improved after Narcan, more awake, slightly agitated. BP improving to 88/40's bolus infusing. Respirations easy and even. The patient is not currently voicing any complaints
[2017-05-17] MEDS ORDERED: NS 0.9% 1000 ML* 1,000 ML IV ONE (22:09)
--- NOTE | 2017-05-17 22:12 | PN ---
Hospitalist Progress Note Date of Service: 05/17/17 1386 bedside altered me to bp 68/50. Pt assessed awakens to name orient times three. ? polypharmacy causing hypotension and drowsiness. Pt checked 74/50. Awake orient times three asking to sleep. Will give another 1000cc bolus. Pt urinating. Asked Dr bailey to eval plan for bedrest pulse neuro checks, frequent vitals. Pt mentating well a and 0 times three. will monitor closely
--- NOTE | 2017-05-17 23:51 | HP ---
CC: Guerrero Gtz NP * HISTORY AND PHYSICAL: DATE OF ADMISSION: 05/17/17 PROVIDER: Dorothy Prieto NP PRIMARY CARE PROVIDER: Guerrero Gtz NP ATTENDING PHYSICIAN: Dr. Aaron Jacobs * (this report was dictated by Dorothy Prieto NP). CHIEF COMPLAINT: Chest pain. HISTORY OF PRESENT ILLNESS: Ms. Glover is a 66-year-old female with past medical history of COPD and lung cancer status post left upper lung resection, anxiety, patent foramen ovale, hypothyroid, hyperlipidemia, hypertension, PE, also recent history of CVA with residual left hand weakness. She was recently admitted on May 01 for non-STEMI, at which time she had a nuclear stress that was suboptimal, showing there was a fixed defect in the lateral wall that was stable. It was a limited study and EF at that time was approximately 61%. She continues to have chest pain. She was seen and treated in the ER on for left-sided chest pain that radiated to her left shoulder. She had two serial troponins, which were drawn and both were negative. She was then discharged approximately 12:30 a.m. on 05/17/17. She returned to the emergency room this a.m. again with left- sided chest pain radiating to her left shoulder. She said that she attempted to do an albuterol treatment at home with no relief of left-sided chest heaviness. She reports that the heaviness is like an elephant sitting on her chest. She currently denies nausea, vomiting , or diarrhea. Denies fever, chills, or increased shortness of breath. She states her shortness of breath is at her baseline. She denies any urinary symptoms. She reports that the left-sided chest heaviness did wake her from a sleep at 3:30 a.m. Due to repeat episodes of chest pain, she will be admitted under observation and treated. PAST MEDICAL HISTORY: 1. COPD. 2. Lung cancer. 3. Anxiety. 4. PFO. 5. Hypothyroid. 6. Chronic pain. 7. Hyperlipidemia. 8. Hypertension. 9. History of PE. 10. GERD. 11. Depression. PAST SURGICAL HISTORY: 1. Status post left upper lung lobe resection. 2. Tonsillectomy. 3. Hysterectomy. HOME MEDICATIONS: 1. Seroquel 200 mg daily at h.s. p.r.n. sleep. 2. Omeprazole 40 p.o. b.i.d. 3. Relafen 750 mg p.o. t.i.d. p.r.n. 4. Gabapentin 300 mg p.o. t.i.d. p.r.n. 5. Cymbalta 60 mg p.o. daily. 6. Clopidogrel 75 mg p.o. daily. 7. Atorvastatin 40 mg p.o. daily. 8. Albuterol inhaler 2 puffs q.4 hours p.r.n. 9. Albuterol nebulizer 2.5 mg q.4 hours p.r.n. 10. Metoprolol 25 p.o. daily. 11. Lisinopril 5 mg daily. 12. Levothyroxine 175 mcg p.o. daily. 13. Atrovent 0.5 mg q.i.d. p.r.n. 14. Fluticasone HFA 220 one puff b.i.d. 15. Warfarin 5 mg p.o. daily. ALLERGIES: She is allergic to ASPIRIN and LATEX. FAMILY HISTORY: The patient's father had a history of MIs. She denies any family history of cancer. The patient states she has had two sons , one from suicide, one from secondary complications from alcohol withdrawal and a that also recently . She currently lives alone. SOCIAL HISTORY: The patient is a current smoker, she smokes about a quarter- pack a day. She smoked since the age of 18. She denies any alcohol use, denies recreational drug use. She reports that her daughter, Elyssa will be her surrogate decision maker in the event she is unable to make any decisions for herself. REVIEW OF SYSTEMS: There was no documented fever. No significant weight change. There was no double vision, no ear drainage. She denies any rhinorrhea or sore throat. She does report having left-sided chest heaviness that radiates to her left shoulder. She denies any increased shortness of breath. She states that her current shortness of breath is at her baseline. She denies abdominal pain. Denies nausea, vomiting, or diarrhea. Denies dysuria or frequency. There are no seizures or no loss of consciousness. No pruritus and no skin ulcerations. Review of 14 systems was completed and all others were negative. PHYSICAL EXAMINATION GENERAL: At this time, Ms. Glover is a 66-year-old female that presented to the ER for chest pain. She appears well, sitting on the stretcher. She does not appear to be in acute distress. VITAL SIGNS: Blood pressure 139/71, heart rate is 96, respirations 20, O2 sat is 100% on room air, temp was 98.0. HEENT: Head is atraumatic, normocephalic. Eyes: EOMs are intact. Sclerae anicteric, not pale. Oral mucosa appears to be moist. There is no oropharyngeal erythema. NECK: Supple. LUNGS: Clear to auscultation bilaterally. No wheezes, rhonchi, or rales. CARDIAC: Heart sounds S1, S2. Regular rate and rhythm. There are no rubs. The patient does have a systolic murmur best heard at the left upper sternal border. ABDOMEN: Soft, flat, and nontender. Bowel sounds are active times in all quadrants. EXTREMITIES: Pulses are +2 throughout. She does move all 4 extremities. She does have residual weakness from a prior CVA to her left hand. She is able to move her fingers at this time on the left hand. Right hand conveyor feeder offbearer is strong. NEUROLOGICAL: She is awake, she is alert and oriented. Tongue is midline. Speech is clear. SKIN: Intact. DIAGNOSTIC STUDIES/LAB DATA: WBCs are 8.6, hemoglobin 10.7, hematocrit 32, platelets 384. INR is 2.02. Sodium is 127, potassium 4.2, chloride is 100, carbon dioxide 17, BUN is 17, creatinine 1.14, glucose is 91, lactic acid is 0.9 , mag is 1.6. BNP is 87. Troponin is 0.01 at 1207 and at 1445 it was 0.01. EKG today showed sinus tachycardia at a rate of 100. Chest x-ray was completed on 05/16/17 at 2201, radiologist's impression: There is no radiographic evidence of acute cardiopulmonary abnormality on the portable chest x-ray. ASSESSMENT AND PLAN: Mrs. Glover is a 66-year-old female that presented to the emergency room today complaining of left-sided chest heaviness that radiating into her right shoulder. We were asked to evaluate her because of the repeated left- sided chest pain. She will be admitted under observation status for: 1. Chest pain. Serial troponins were negative due to her repeated admissions for chest pain. She will be admitted. Cardiology, Dr. Bauer was consulted. We will hold her Coumadin. The plan is to do a cardiac catheterization in the a.m. We will continue her metoprolol and lisinopril and repeat a CBC, BMP, mag , and INR in the a.m. 2. History of cerebrovascular accident. We will continue her Plavix 75 mg. 3. Chronic obstructive pulmonary disease. We will continue her albuterol and Atrovent nebulizer and inhalers as needed for shortness of breath. 4. Anxiety/depression. We will continue her Cymbalta and Seroquel as needed. 5. Hypothyroidism. We will continue her Synthroid at 175 mcg p.o. daily. 6. FEN. We will place her on a hearty healthy diet. She will be n.p.o. after midnight for possible cardiac catheterization in the a.m. 7. Code status. She is a full code. 8. DVT prophylaxis. The patient is currently on Coumadin therapeutic at this time but her Coumadin will be held for cardiac catheterization in the morning. We will place her on SCDs. 9. Hypomagnesium. We will replace her magnesium with 2 g of magnesium IV and repeat a mag level in the a.m. TIME SPENT: On this admission was 60 minutes, greater than half the time was spent [id number] with the patient obtaining the history and physical, the other half of the time was spent going over the plan of care with the patient and implementing the plan of care. I did discuss my plan with my attending, Dr. Aaron Jacobs, and he is in agreement with my plan. DOROTHY PRIETO, FAMILY MANAGER [id number]/[facility] #: [id number] NICOLE
[2017-05-17] MEDS ORDERED: NS 0.9% 1000 ML* 1,000 ML IV SCH (23:55)
[2017-05-18] MEDS: Levothyroxine TAB* 175 MCG TAB PO SCH ×2 (05:13→08:30)
[2017-05-18 05:45] LABS: ABS Basophils 0.1 10^3/ul (0-0.2); ABS Eosinophils 0.1 10^3/ul (0-0.6); ABS Lymphocytes 1.8 10^3/ul (1.0-4.8); ABS Neutrophils 3.7 10^3/ul (1.5-7.7); ABS Nucleated RBC 0.01 10^3/ul; Eosinophil % 1.4 % (0-6); Hematocrit 27 % (35-47); Lymphocyte % 26.4 % (25-47); Mean Corpuscular HGB Conc 33 g/dl (31-36); Mean Corpuscular Hemoglobin 31 pg (27-31); Mean Corpuscular Volume 94 fL (80-97); Mean Platelet Volume 9 um3 (7.4-10.4); Nucleated Red Blood Cells % 0.1; Platelet Count 318 10^3/ul (150-450); Red Blood Count 2.87 10^6/ul (4.0-5.4); Red Cell Distribution Width 18 % (10.5-15); White Blood Count 6.7 10^3/ul (3.5-10.8)
[2017-05-18 05:59] LABS: INR 1.72 (0.77-1.02)
[2017-05-18 06:04] LABS: EGFR Non-African American 46.4 (>60)
[2017-05-18] MEDS: Pantoprazole TAB (NF) 40 MG TAB PO SCH ×2 (08:30→20:53)
[2017-05-18] MEDS: DULoxetine DR CAP* 60 MG CAP.DR PO SCH (08:30)
[2017-05-18] MEDS: Lisinopril TAB* 5 MG PO SCH (08:30)
[2017-05-18] MEDS: Metoprolol Succinate XL TAB* 25 MG PO SCH (08:30)
[2017-05-18] MEDS: Clopidogrel TAB* 75 MG PO SCH (08:30)
[2017-05-18] MEDS ORDERED: fentaNYL* 50 MCG/ML 2 ML VIAL (100 MCG VIAL) ONE (09:02)
[2017-05-18] MEDS ORDERED: Iodixanol* (CONTRAST) 320 MG/ML 100 ML SDV ONE (09:03)
[2017-05-18] MEDS ORDERED: Lidocaine 1% INJ* 10 MG/ML 30 ML SDV ONE (09:03)
[2017-05-18] MEDS ORDERED: Heparin 2 UNITS/ML IVPREMIX* 0 ML IV ONE (09:03)
[2017-05-18] MEDS ORDERED: Midazolam* 1 MG/ML 10 ML VIAL (10 MG) ONE (09:03)
[2017-05-18] MEDS ORDERED: Aspirin EC TAB* 325 MG PO ONE (11:42)
[2017-05-18] MEDS: Gabapentin CAP(*) 300 MG PO PRN (13:07)
--- NOTE | 2017-05-18 13:40 | RAD ---
HISTORY: Stroke, rule out hemorrhage COMPARISONS: May 01, 2017 TECHNIQUE: Multiple contiguous axial CT scans were obtained of the head without intravenous contrast. FINDINGS: HEMORRHAGE/INFARCT: There is no hemorrhage or acute infarct. MASSES/SHIFT: There is no mass or shift. EXTRA-AXIAL SPACES: There are no extra-axial fluid collections. There is dural ossification versus ossified meningioma the falx measuring 0.3 cm in depth. SULCI AND VENTRICLES: The sulci and ventricles are normal in size and position for the patient's stated age. CEREBRUM: There is hypoattenuation of the periventricular and subcortical white matter. BRAINSTEM: There are no focal parenchymal abnormalities. CEREBELLUM: There are no focal parenchymal abnormalities. VESSELS: The vessels are grossly normal. PARANASAL SINUSES: There are-fluid levels within the maxillary sinuses bilaterally. ORBITS: The orbits are unremarkable. BONES AND SOFT TISSUE: No bone or soft tissue abnormalities are noted. OTHER: None IMPRESSION: 1. NO ACUTE INTRACRANIAL PATHOLOGY. 2. CHRONIC SMALL VESSEL ISCHEMIC CHANGES. 3. MODERATE SINUS MUCOSAL INFLAMMATORY DISEASE, WITH AIR-FLUID LEVELS IN THE MAXILLARY SINUSES BILATERALLY.. IN THE CORRECT CLINICAL SETTING, THIS MAY REPRESENT ACUTE SINUSITIS
--- NOTE | 2017-05-18 14:24 | CONS ---
CC: Dr. Bauer * NEUROLOGY NOTE: DATE OF CONSULT: LOCATION: She is an inpatient in room 441. HOSPITALIST: Hector Vázquez NP HISTORY OF PRESENT ILLNESS: Jessi Glover was seen by myself in the hospital back early in April. She had a small right motor strip cerebral infarction in the setting of a possible subendocardial DE. She had left hand weakness. I spoke with Dr. Bauer today about the possibility of doing a cardiac catheterization and the risks involved given her recent stroke. She has been readmitted to the hospital several times with chest pain and the plan is to do a cardiac catheterization. MEDICATIONS: Current medications in the hospital consist of: 1. Albuterol inhaler p.r.n. 2. Atorvastatin 40 mg p.o. daily. 3. Plavix 75 mg p.o. daily. 4. Duloxetine 60 mg p.o. daily. 5. Gabapentin 300 mg p.o. t.i.d. 6. Levothyroxine 175 mcg p.o. daily. 7. Lisinopril 5 mg p.o. daily. 8. Metoprolol 25 mg p.o. daily. 9. Asmanex 2 puffs daily. 10. Protonix 40 mg p.o. b.i.d. DIAGNOSTIC STUDIES/LAB DATA: Most recent laboratory studies notable for CBC with hemoglobin of 9.0 on 05/18/17, platelet count 318,000. Her last INR on is 1.72, PTT 58.9. Chemistries known for a sodium of 131 on 05/18/17, creatinine 1.17. IMPRESSION: Mrs. Glover had a small right middle cerebral artery branch stroke, most suspicious for a cardiogenic embolism in the setting of acute myocardial ischemia. I have spoken with Dr. Bauer and I think the risk of a cardiac catheterization in terms of intracranial hemorrhage or recurrent stroke is relatively low. We talked about avoiding heparin boluses, but that it might be necessary if indeed she required stenting and I think that this could be done with a reasonable risk benefit ratio given the uncertain coronary artery anatomy and relatively small stroke and that it has now been at least a couple of weeks since it occurred. We discussed that and I offered to put this opinion into the medical record. [id number]/[facility] #: [id number] [facility] HOSPITALMadyson
--- NOTE | 2017-05-18 15:54 | PN ---
Subjective Date of Service: 05/18/17 Interval History: events reviewed from overnight admitted with chest pain BP lower in setting of medication administration, stable since yesterday Chest pain now resolved, has been OOB walking without symptoms Objective Active Medications: Acetaminophen (Tylenol Tab*) 650 mg PO Q6H PRN PRN Reason: FEVER/PAIN Albuterol (Ventolin 2.5 Mg/3 Ml Neb.Tracey*) 2.5 mg INH Q4H PRN PRN Reason: SOB/WHEEZING Albuterol (Ventolin Hfa Inhaler*) 2 puff INH Q4H PRN PRN Reason: SOB/WHEEZING Atorvastatin Calcium (Lipitor*) 40 mg PO 1700 [facility] Last Admin: 05/17/17 18:18 Dose: 40 mg Clopidogrel Bisulfate (Plavix Tab*) 75 mg PO DAILY [facility] Last Admin: 05/18/17 08:30 Dose: 75 mg Duloxetine HCl (Cymbalta Cap*) 60 mg PO DAILY [facility] Last Admin: 05/18/17 08:30 Dose: 60 mg Gabapentin (Neurontin Cap(*)) 300 mg PO TID PRN PRN Reason: PAIN Last Admin: 05/18/17 13:07 Dose: 300 mg Ipratropium [place] (Atrovent 0.5 Mg Neb.Tracey*) 0.5 mg INH QID PRN PRN Reason: SOB/WHEEZING Levothyroxine Sodium (Synthroid Tab*) 175 mcg PO DAILY [facility] Last Admin: 05/18/17 08:30 Dose: 175 mcg Lisinopril (Prinivil Tab*) 5 mg PO DAILY [facility] Last Admin: 05/18/17 08:30 Dose: 5 mg Metoprolol Succinate (Toprol Xl Tab*) 25 mg PO DAILY [facility] Last Admin: 05/18/17 08:30 Dose: 25 mg Mometasone Furoate (Asmanex 220 Mcg Mdi *) 2 puff INH 2100 [facility] Last Admin: 05/17/17 21:44 Dose: 2 puff Pantoprazole Sodium (Protonix Tab (Nf)) 40 mg PO BID [facility] Last Admin: 05/18/17 08:30 Dose: 40 mg Vital Signs - 8 hr 05/18/17 05/18/17 05/18/17 08:32 11:19 13:07 Temperature 97.8 F Pulse Rate 74 Respiratory 16 20 18 Rate Blood Pressure 125/65 (mmHg) O2 Sat by Pulse 100 Oximetry Oxygen Devices in Use Now: None Appearance: sitting in chair, NAD Eyes: No Scleral Icterus, PERRLA Ears/Nose/Mouth/Throat: Clear Oropharnyx, Mucous Membranes Moist Neck: NL Appearance and Movements; NL JVP, Trachea Midline Respiratory: Symmetrical Chest Expansion and Respiratory Effort, Clear to Auscultation Cardiovascular: RRR, - - 2+JULIANNE Abdominal: NL Sounds; No Tenderness; No Distention, No Hepatosplenomegaly Lymphatic: No Cervical Adenopathy Extremities: No Edema Skin: No Rash or Ulcers Neurological: Alert and Oriented x 3 Result Diagrams: 05/18/17 05:12 05/18/17 05:12 Additional Lab and Data: Lab Results 05/17/17 05/17/17 05/17/17 Range/Units 12:07 12:07 12:07 WBC 8.6 (3.5-10.8) 10^3/ul RBC 3.40 L (4.0-5.4) 10^6/ul Hgb 10.7 L (12.0-16.0) g/dl Hct 32 L (35-47) % MCV 93 (80-97) fL MCH 31 (27-31) pg MCHC 34 (31-36) g/dl RDW 18 H (10.5-15) % Plt Count 384 (150-450) 10^3/ul MPV 8 (7.4-10.4) um3 Neut % (Auto) 71.3 (38-83) % Lymph % (Auto) 16.2 L (25-47) % [place] % (Auto) 10.8 H (1-9) % Eos % (Auto) 0.6 (0-6) % Baso % (Auto) 1.1 (0-2) % Absolute Neuts (auto) 6.1 (1.5-7.7) 10^3/ul Absolute Lymphs (auto) 1.4 (1.0-4.8) 10^3/ul Absolute Monos (auto) 0.9 H (0-0.8) 10^3/ul Absolute Eos (auto) 0.1 (0-0.6) 10^3/ul Absolute Basos (auto) 0.1 (0-0.2) 10^3/ul Absolute Nucleated RBC 0 10^3/ul Nucleated RBC % 0 INR (Anticoag Therapy) 2.02 H (0.77-1.02) Sodium (133-145) mmol/L Potassium (3.5-5.0) mmol/L Chloride (101-111) mmol/L Carbon Dioxide (22-32) mmol/L Anion Gap (2-11) mmol/L BUN (6-24) mg/dL Creatinine (0.51-0.95) mg/dL Est GFR ( Amer) (>60) Est GFR (Non-Af Amer) (>60) BUN/Creatinine Ratio (8-20) Glucose (70-100) mg/dL Lactic Acid (0.5-2.0) mmol/L Calcium (8.6-10.3) mg/dL Magnesium (1.9-2.7) mg/dL Total Bilirubin (0.2-1.0) mg/dL AST (13-39) U/L ALT (7-52) U/L Alkaline Phosphatase (34-104) U/L Troponin I (<0.04) ng/mL B-Natriuretic Peptide 87 ( - 100) pg/mL Total Protein (6.4-8.9) g/dL Albumin (3.2-5.2) g/dL Globulin (2-4) g/dL Albumin/Globulin Ratio (1-3) 05/17/17 05/17/17 Range/Units 12:07 12:07 WBC (3.5-10.8) 10^3/ul RBC (4.0-5.4) 10^6/ul Hgb (12.0-16.0) g/dl Hct (35-47) % MCV (80-97) fL MCH (27-31) pg MCHC (31-36) g/dl RDW (10.5-15) % Plt Count (150-450) 10^3/ul MPV (7.4-10.4) um3 Neut % (Auto) (38-83) % Lymph % (Auto) (25-47) % [place] % (Auto) (1-9) % Eos % (Auto) (0-6) % Baso % (Auto) (0-2) % Absolute Neuts (auto) (1.5-7.7) 10^3/ul Absolute Lymphs (auto) (1.0-4.8) 10^3/ul Absolute Monos (auto) (0-0.8) 10^3/ul Absolute Eos (auto) (0-0.6) 10^3/ul Absolute Basos (auto) (0-0.2) 10^3/ul Absolute Nucleated RBC 10^3/ul Nucleated RBC % INR (Anticoag Therapy) (0.77-1.02) Sodium 127 L (133-145) mmol/L Potassium 4.2 (3.5-5.0) mmol/L Chloride 100 L (101-111) mmol/L Carbon Dioxide 17 L (22-32) mmol/L Anion Gap 10 (2-11) mmol/L BUN 17 (6-24) mg/dL Creatinine 1.14 H (0.51-0.95) mg/dL Est GFR ( Amer) 61.5 (>60) Est GFR (Non-Af Amer) 47.8 (>60) BUN/Creatinine Ratio 14.9 (8-20) Glucose 91 (70-100) mg/dL Lactic Acid 0.9 (0.5-2.0) mmol/L Calcium 9.0 (8.6-10.3) mg/dL Magnesium 1.6 L (1.9-2.7) mg/dL Total Bilirubin 0.40 (0.2-1.0) mg/dL AST 15 (13-39) U/L ALT 10 (7-52) U/L Alkaline Phosphatase 60 (34-104) U/L Troponin I 0.01 (<0.04) ng/mL B-Natriuretic Peptide ( - 100) pg/mL Total Protein 6.5 (6.4-8.9) g/dL Albumin 3.8 (3.2-5.2) g/dL Globulin 2.7 (2-4) g/dL Albumin/Globulin Ratio 1.4 (1-3) Assess/Plan/Problems-Billing Assessment: 66yo F recent admission this month with CVA suspected to be cardioembolic in setting of NSTEMI returning with recurrent chest pain - Patient Problems (1) Chest pain Comment: Plan on [facility] tomorrow ASA allergy noted Plavix (2) COPD (chronic obstructive pulmonary disease) Comment: stable mometasone (3) CVA (cerebral vascular accident) Comment: Appreciate Dr. Mccauley's assistance Plan on [facility] tomorrow try to avoid large heparin boluses Will restart coumadin s/p procedure (4) Depression Comment: sussyallorenza (5) Hypertension Comment: lisinopril, metoprolol. (6) DVT prophylaxis Comment: HSQ x 1 tonight
[2017-05-18] MEDS: Atorvastatin* 40 MG TAB PO SCH (17:19)
[2017-05-18] MEDS ORDERED: Aspirin TAB* 325 MG PO SCH (21:00)
[2017-05-18] MEDS ORDERED: Heparin VIAL(*) 5000 UNITS/ML VIAL (FIVE THOUSAND) SUBCUT ONE (21:00)
[2017-05-18] MEDS: Mometasone 220 MCG MDI INH SCH (21:00)
--- NOTE | 2017-05-18 21:31 | CONS ---
CC: Dr. Magaly Jim; Dr. Mccauley * CARDIOLOGY CONSULTATION: DATE OF CONSULT: 05/17/17 INDICATION FOR CONSULTATION: Chest pain. HISTORY OF PRESENT ILLNESS: The patient is a 66-year-old female with a history of lung cancer in the past, tobacco use, hypertension, who was admitted to the hospital on 05/02/17 with a stroke resulting in paralysis of her left hand. At that time, she had an abnormal EKG and troponin level at that time was 1.21 at its maximum. The patient underwent an echocardiogram and a stress test. During that hospitalization, her stress test showed a fixed lateral wall defect and her echocardiogram showed mildly reduced LV systolic function with lateral wall hypokinesis. The plan at that time was to treat the patient for her stroke and in a month reevaluate for possible cardiac catheterization. The patient was discharged from the hospital on beta-blockers, Coumadin, Plavix. The patient did well until a week after discharged from the hospital when she returned to the hospital with chest pain. The patient described it as an atypical chest pain that made her quite anxious and that is why she returned to the hospital. She was ruled out for a myocardial infarction at that point and discharged 2 days later. The patient came to the hospital this past Wednesday with a similar chest pain, again she was ruled out for myocardial infarction and discharged home. The patient was readmitted to the hospital on late Wednesday night, early Wednesday morning with her usual chest pain, it is an atypical chest pain, this is in the center of her chest and does not radiate anywhere. It is not associated with exertion. She rates it as a 3/10. The patient was admitted to the hospital for further evaluation. PAST MEDICAL HISTORY: Significant for COPD, lung cancer, lung resection due to chemotherapy, anxiety, chronic pain syndrome, pulmonary hypertension, pulmonary embolism in the past, hyponatremia. PAST SURGICAL HISTORY: Tonsillectomy, hysterectomy, left upper lobe tumor removal. OUTPATIENT MEDICATIONS: 1. Omeprazole 40 mg b.i.d. 2. Levothyroxine 125 mcg a day. 3. Ipratropium inhaler. 4. Flovent inhaler. 5. Cymbalta 60 mg a day. 6. Albuterol inhaler. 7. Seroquel 200 mg a day. 8. Warfarin as directed. 9. Plavix 75 mg a day. 10. Atorvastatin 40 mg a day. ALLERGIES: To ASPIRIN and LATEX. FAMILY HISTORY: Not reviewed. 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 She is a previous smoker. She quit many years ago. She does not get any regular exercise. She is retired. REVIEW OF SYSTEMS: Negative for fevers and chills. Negative for changes in bowel or bladder habits. Negative for changes in weight. Other 12-point review is unremarkable. PHYSICAL EXAM: Height is 5 feet, weight is 95 pounds. Heart rate is 84, blood pressure 116/65, oxygen saturation 98% on 2 L, temperature 98.3. Sclerae anicteric. Oropharynx is pink without erythema. Carotids are 2+ without bruits. JVD is normal. Thyroid is normal. Cardiac Exam: S1 and S2 without any murmurs, rubs, or gallops. PMI is normal. Lungs are clear to auscultation bilaterally. There is no dullness to percussion. Abdomen is soft, nontender, and nondistended with normoactive bowel sounds. Extremities show no edema. She has 2+ pulses. The patient is awake, alert, and oriented. She moves her lower extremities and right upper extremity normally. She does have paralysis of her left upper extremity. DIAGNOSTIC STUDIES/LAB DATA: CBC, white count 6.7, hemoglobin 9, hematocrit 27 , and platelet count 318. Chemistries within normal limits. BUN 18, creatinine 1.1, AST and ALT are normal, TSH 9.5. Troponins are negative x3. EKG shows normal sinus rhythm with borderline LVH and no obvious ST segment elevation or depression. IMPRESSION: This is a 66-year-old female with a history of lung cancer, history of recent cerebrovascular accident, who was admitted to the hospital with chest pain. Again, she had an abnormal stress test and an abnormal troponin level 2 weeks ago when she was admitted for acute stroke. The patient continues to have atypical chest pain despite medical therapy. It is my recommendation that the patient undergo cardiac catheterization. I have discussed the case at length with Dr. Edilberto Mccauley and to Dr. Alphonso Rogers. The recommendation is to wait until her INR is less than 1.5. The patient will continue on her Plavix. Dr. Mccauley clearly states that she is at low risk for hemorrhagic transformation of her acute infarct given that the size of the infarct and the time since her event. This was discussed with Dr. Rogers and he will proceed with cardiac catheterization. [id number]/[facility] #: [id number] NICOLE
[2017-05-19 07:35] LABS: INR 1.17 (0.77-1.02)
[2017-05-19] MEDS ORDERED: Aspirin EC Low Dose* 81 MG TAB.EC PO SCH (09:00)
[2017-05-19] MEDS ORDERED: Iodixanol* (CONTRAST) 320 MG/ML 100 ML SDV ONE ×2 (09:21→10:12)
[2017-05-19] MEDS ORDERED: Heparin 2 UNITS/ML IVPREMIX* 2,000 ML IV ONE (09:21)
[2017-05-19] MEDS ORDERED: Lidocaine 1% INJ* 10 MG/ML 30 ML SDV ONE (09:22)
[2017-05-19] MEDS ORDERED: fentaNYL* 50 MCG/ML 2 ML VIAL (100 MCG VIAL) ONE ×2 (09:31→11:44)
[2017-05-19] MEDS ORDERED: Heparin(*) 1000 UNIT/ML 10 ML VIAL CATH LAB IV ONE (09:32)
[2017-05-19] MEDS ORDERED: Midazolam* 1 MG/ML 10 ML VIAL (10 MG) ONE (09:32)
[2017-05-19] MEDS ORDERED: Nitroglycerin TAB 0.4 MG* 0.4 MG TAB ONE (09:53)
[2017-05-19] MEDS ORDERED: Clopidogrel TAB* 75 MG ONE (10:02)
[2017-05-19] MEDS: Clopidogrel TAB* 75 MG PO SCH (10:15)
[2017-05-19] MEDS ORDERED: NS 0.9% 1000 ML* 1,000 ML IV SCH (10:45)
[2017-05-19] MEDS: Metoprolol Succinate XL TAB* 25 MG PO SCH (11:02)
[2017-05-19] MEDS: Pantoprazole TAB (NF) 40 MG TAB PO SCH ×2 (11:02→21:13)
[2017-05-19] MEDS: Lisinopril TAB* 5 MG PO SCH (11:02)
[2017-05-19] MEDS: DULoxetine DR CAP* 60 MG CAP.DR PO SCH (11:02)
[2017-05-19] MEDS: Levothyroxine TAB* 175 MCG TAB PO SCH (11:04)
[2017-05-19] MEDS ORDERED: fentaNYL* 50 MCG/ML 2 ML VIAL (100 MCG VIAL) IV ONE (13:00)
[2017-05-19] MEDS ORDERED: oxyCODONE TAB* 5 MG TAB PO ONE ×2 (13:48→17:38)
[2017-05-19] MEDS ORDERED: oxyCODONE TAB* 5 MG TAB ONE (14:14)
[2017-05-19] MEDS ORDERED: Isosorbide Mononitrate ER TAB* 60 MG ONE (14:14)
[2017-05-19] MEDS: Isosorbide Mononitrate ER TAB* 60 MG PO SCH (14:19)
--- NOTE | 2017-05-19 15:56 | PN ---
Subjective Date of Service: 05/19/17 Interval History: Seen after procedure had episode chest discomfort overnight, resolved spontaneously Objective Active Medications: Acetaminophen (Tylenol Tab*) 650 mg PO Q6H PRN PRN Reason: FEVER/PAIN Albuterol (Ventolin 2.5 Mg/3 Ml Neb.Tracey*) 2.5 mg INH Q4H PRN PRN Reason: SOB/WHEEZING Albuterol (Ventolin Hfa Inhaler*) 2 puff INH Q4H PRN PRN Reason: SOB/WHEEZING Last Admin: 05/19/17 01:35 Dose: 2 puff Atorvastatin Calcium (Lipitor*) 40 mg PO 1700 [facility] Last Admin: 05/18/17 17:19 Dose: 40 mg Clopidogrel Bisulfate (Plavix Tab*) 75 mg PO DAILY [facility] Last Admin: 05/19/17 10:15 Dose: 75 mg Duloxetine HCl (Cymbalta Cap*) 60 mg PO DAILY [facility] Last Admin: 05/19/17 11:02 Dose: 60 mg Gabapentin (Neurontin Cap(*)) 300 mg PO TID PRN PRN Reason: PAIN Last Admin: 05/18/17 13:07 Dose: 300 mg Ipratropium [place] (Atrovent 0.5 Mg Neb.Tracey*) 0.5 mg INH QID PRN PRN Reason: SOB/WHEEZING Isosorbide Mononitrate (Imdur Er Tab*) 60 mg PO DAILY [facility] Last Admin: 05/19/17 14:19 Dose: 60 mg Levothyroxine Sodium (Synthroid Tab*) 175 mcg PO DAILY [facility] Last Admin: 05/19/17 11:04 Dose: 175 mcg Metoprolol Succinate (Toprol Xl Tab*) 25 mg PO DAILY [facility] Last Admin: 05/19/17 11:02 Dose: 25 mg Mometasone Furoate (Asmanex 220 Mcg Mdi *) 2 puff INH 2100 [facility] Last Admin: 05/18/17 21:00 Dose: 2 puff Pantoprazole Sodium (Protonix Tab (Nf)) 40 mg PO BID [facility] Last Admin: 05/19/17 11:02 Dose: 40 mg Vital Signs - 8 hr 05/19/17 05/19/17 05/19/17 08:00 10:45 11:00 Temperature 98.5 F Pulse Rate 73 76 Respiratory 18 19 17 Rate Blood Pressure 162/85 170/86 (mmHg) O2 Sat by Pulse 96 100 99 Oximetry 05/19/17 05/19/17 05/19/17 11:15 11:30 11:45 Temperature Pulse Rate 70 76 71 Respiratory 16 19 15 Rate Blood Pressure 155/87 145/95 162/83 (mmHg) O2 Sat by Pulse 100 100 100 Oximetry 05/19/17 05/19/17 05/19/17 12:00 12:15 12:30 Temperature Pulse Rate 73 70 72 Respiratory 16 18 21 Rate Blood Pressure 142/81 165/81 163/82 (mmHg) O2 Sat by Pulse 100 99 100 Oximetry 05/19/17 05/19/17 05/19/17 12:45 12:57 13:00 Temperature 99.5 F Pulse Rate 67 75 68 Respiratory 17 20 18 Rate Blood Pressure 166/89 155/89 (mmHg) O2 Sat by Pulse 99 100 100 Oximetry 05/19/17 05/19/17 05/19/17 13:11 13:15 14:19 Temperature Pulse Rate 71 Respiratory 18 18 16 Rate Blood Pressure 176/89 (mmHg) O2 Sat by Pulse 100 Oximetry Oxygen Devices in Use Now: None Appearance: NAD Eyes: No Scleral Icterus, PERRLA Ears/Nose/Mouth/Throat: Clear Oropharnyx, Mucous Membranes Moist Neck: NL Appearance and Movements; NL JVP, Trachea Midline Respiratory: Symmetrical Chest Expansion and Respiratory Effort, Clear to Auscultation Abdominal: - - 2/6 JULIANNE RUSB and LLSB Lymphatic: No Cervical Adenopathy Extremities: No Edema Skin: No Rash or Ulcers Neurological: Alert and Oriented x 3 Result Diagrams: 05/18/17 05:12 05/18/17 05:12 Additional Lab and Data: Lab Results 05/17/17 05/17/17 05/17/17 Range/Units 12:07 12:07 12:07 WBC 8.6 (3.5-10.8) 10^3/ul RBC 3.40 L (4.0-5.4) 10^6/ul Hgb 10.7 L (12.0-16.0) g/dl Hct 32 L (35-47) % MCV 93 (80-97) fL MCH 31 (27-31) pg MCHC 34 (31-36) g/dl RDW 18 H (10.5-15) % Plt Count 384 (150-450) 10^3/ul MPV 8 (7.4-10.4) um3 Neut % (Auto) 71.3 (38-83) % Lymph % (Auto) 16.2 L (25-47) % Overton % (Auto) 10.8 H (1-9) % Eos % (Auto) 0.6 (0-6) % Baso % (Auto) 1.1 (0-2) % Absolute Neuts (auto) 6.1 (1.5-7.7) 10^3/ul Absolute Lymphs (auto) 1.4 (1.0-4.8) 10^3/ul Absolute Monos (auto) 0.9 H (0-0.8) 10^3/ul Absolute Eos (auto) 0.1 (0-0.6) 10^3/ul Absolute Basos (auto) 0.1 (0-0.2) 10^3/ul Absolute Nucleated RBC 0 10^3/ul Nucleated RBC % 0 INR (Anticoag Therapy) 2.02 H (0.77-1.02) Sodium (133-145) mmol/L Potassium (3.5-5.0) mmol/L Chloride (101-111) mmol/L Carbon Dioxide (22-32) mmol/L Anion Gap (2-11) mmol/L BUN (6-24) mg/dL Creatinine (0.51-0.95) mg/dL Est GFR ( Amer) (>60) Est GFR (Non-Af Amer) (>60) BUN/Creatinine Ratio (8-20) Glucose (70-100) mg/dL Lactic Acid (0.5-2.0) mmol/L Calcium (8.6-10.3) mg/dL Magnesium (1.9-2.7) mg/dL Total Bilirubin (0.2-1.0) mg/dL AST (13-39) U/L ALT (7-52) U/L Alkaline Phosphatase (34-104) U/L Troponin I (<0.04) ng/mL B-Natriuretic Peptide 87 ( - 100) pg/mL Total Protein (6.4-8.9) g/dL Albumin (3.2-5.2) g/dL Globulin (2-4) g/dL Albumin/Globulin Ratio (1-3) 05/17/17 05/17/17 Range/Units 12:07 12:07 WBC (3.5-10.8) 10^3/ul RBC (4.0-5.4) 10^6/ul Hgb (12.0-16.0) g/dl Hct (35-47) % MCV (80-97) fL MCH (27-31) pg MCHC (31-36) g/dl RDW (10.5-15) % Plt Count (150-450) 10^3/ul MPV (7.4-10.4) um3 Neut % (Auto) (38-83) % Lymph % (Auto) (25-47) % Overton % (Auto) (1-9) % Eos % (Auto) (0-6) % Baso % (Auto) (0-2) % Absolute Neuts (auto) (1.5-7.7) 10^3/ul Absolute Lymphs (auto) (1.0-4.8) 10^3/ul Absolute Monos (auto) (0-0.8) 10^3/ul Absolute Eos (auto) (0-0.6) 10^3/ul Absolute Basos (auto) (0-0.2) 10^3/ul Absolute Nucleated RBC 10^3/ul Nucleated RBC % INR (Anticoag Therapy) (0.77-1.02) Sodium 127 L (133-145) mmol/L Potassium 4.2 (3.5-5.0) mmol/L Chloride 100 L (101-111) mmol/L Carbon Dioxide 17 L (22-32) mmol/L Anion Gap 10 (2-11) mmol/L BUN 17 (6-24) mg/dL Creatinine 1.14 H (0.51-0.95) mg/dL Est GFR ( Amer) 61.5 (>60) Est GFR (Non-Af Amer) 47.8 (>60) BUN/Creatinine Ratio 14.9 (8-20) Glucose 91 (70-100) mg/dL Lactic Acid 0.9 (0.5-2.0) mmol/L Calcium 9.0 (8.6-10.3) mg/dL Magnesium 1.6 L (1.9-2.7) mg/dL Total Bilirubin 0.40 (0.2-1.0) mg/dL AST 15 (13-39) U/L ALT 10 (7-52) U/L Alkaline Phosphatase 60 (34-104) U/L Troponin I 0.01 (<0.04) ng/mL B-Natriuretic Peptide ( - 100) pg/mL Total Protein 6.5 (6.4-8.9) g/dL Albumin 3.8 (3.2-5.2) g/dL Globulin 2.7 (2-4) g/dL Albumin/Globulin Ratio 1.4 (1-3) Assess/Plan/Problems-Billing Assessment: 66yo F recent admission this month with CVA suspected to be cardioembolic in setting of NSTEMI returning with recurrent chest pain - Patient Problems (1) Chest pain Comment: per verbal report: RCA 100% occluded with good colaterals, mLAD 50-60% , hyperdynamic LV fxn Plavix Start imdur to optimize colateral flow, uptitrate depending on BP in AM May have to perform ASA desensitization in future (2) COPD (chronic obstructive pulmonary disease) Comment: stable mometasone (3) CVA (cerebral vascular accident) Comment: Appreciate Dr. Mccauley's assistance restart coumadin 5mg tonight (4) Depression Comment: cymbalta (5) Hypertension Comment: metoprolol. stop lisinopril (LV fxn wnl) start imdur (6) DVT prophylaxis Comment: hsq
--- NOTE | 2017-05-19 16:19 | PN ---
Subjective Date of Service: 05/19/17 - CC: chest pain Interval History: The patient is s/p cardiac catheterization earlier today. She states she is CP free for the first time in 4 days. Cough persists and she admits she was smoking until 4 days ago. No orthopnea. Medications Active Medications: Acetaminophen (Tylenol Tab*) 650 mg PO Q6H PRN PRN Reason: FEVER/PAIN Albuterol (Ventolin 2.5 Mg/3 Ml Neb.Tracey*) 2.5 mg INH Q4H PRN PRN Reason: SOB/WHEEZING Albuterol (Ventolin Hfa Inhaler*) 2 puff INH Q4H PRN PRN Reason: SOB/WHEEZING Last Admin: 05/19/17 01:35 Dose: 2 puff Atorvastatin Calcium (Lipitor*) 40 mg PO 1700 [facility] Last Admin: 05/18/17 17:19 Dose: 40 mg Clopidogrel Bisulfate (Plavix Tab*) 75 mg PO DAILY [facility] Last Admin: 05/19/17 10:15 Dose: 75 mg Duloxetine HCl (Cymbalta Cap*) 60 mg PO DAILY [facility] Last Admin: 05/19/17 11:02 Dose: 60 mg Gabapentin (Neurontin Cap(*)) 300 mg PO TID PRN PRN Reason: PAIN Last Admin: 05/18/17 13:07 Dose: 300 mg Heparin Sodium (Porcine) (Heparin Vial(*)) 5,000 units SUBCUT Q8HR [facility] Ipratropium [place] (Atrovent 0.5 Mg Neb.Tracey*) 0.5 mg INH QID PRN PRN Reason: SOB/WHEEZING Isosorbide Mononitrate (Imdur Er Tab*) 60 mg PO DAILY [facility] Last Admin: 05/19/17 14:19 Dose: 60 mg Levothyroxine Sodium (Synthroid Tab*) 175 mcg PO DAILY [facility] Last Admin: 05/19/17 11:04 Dose: 175 mcg Metoprolol Succinate (Toprol Xl Tab*) 25 mg PO DAILY [facility] Last Admin: 05/19/17 11:02 Dose: 25 mg Mometasone Furoate (Asmanex 220 Mcg Mdi *) 2 puff INH 2100 [facility] Last Admin: 05/18/17 21:00 Dose: 2 puff Pantoprazole Sodium (Protonix Tab (Nf)) 40 mg PO BID [facility] Last Admin: 05/19/17 11:02 Dose: 40 mg Warfarin Sodium (Coumadin Tab(*)) 5 mg PO DAILY@1700 [place] PRN Reason: Protocol Objective Vital Signs: Temp Pulse Resp BP Pulse Ox 99.5 F 71 16 176/89 100 05/19/17 13:00 05/19/17 13:15 05/19/17 14:19 05/19/17 13:15 05/19/17 13:15 Appearance: older woman, lying 20 degrees, comfortable watching TV. Eyes: No Scleral Icterus, PERRLA Ears/Nose/Mouth/Throat: Clear Oropharnyx, Mucous Membranes Moist Neck: NL Appearance and Movements; NL JVP, No Thyroid Enlargement, Masses Respiratory: Symmetrical Chest Expansion and Respiratory Effort - Rhochi and bronchial breath sounds diffusely, smoker's cough. Cardiovascular: NL Sounds; No Murmurs; No JVD - 2-3/6 systolic murmer upper sternal border. Abdominal: NL Sounds; No Tenderness; No Distention Extremities: No Edema Skin: No Rash or Ulcers Neurological: Alert and Oriented x 3 Laboratory Results: INR (Anticoag Therapy) 1.17 (0.77-1.02) H 05/19/17 06:56 Total Bilirubin 0.40 mg/dL (0.2-1.0) 05/17/17 12:07 AST 15 U/L (13-39) 05/17/17 12:07 ALT 10 U/L (7-52) 05/17/17 12:07 Alkaline Phosphatase 60 U/L (34-104) 05/17/17 12:07 B-Natriuretic Peptide 87 pg/mL (-100) 05/17/17 12:07 Total Protein 6.5 g/dL (6.4-8.9) 05/17/17 12:07 Albumin 3.8 g/dL (3.2-5.2) 05/17/17 12:07 Globulin 2.7 g/dL (2-4) 05/17/17 12:07 Albumin/Globulin Ratio 1.4 (1-3) 05/17/17 12:07 TSH 9.54 mcIU/mL (0.34-5.60) H 05/17/17 12:07 Diagnostic Imaging: Cardiac catheterization today per Dr. Rogers: Occluded distal RCA/PD with R-R and L-R collateral flow. Moderate occlusion mid LAD. All on medical management. LVEDP elevatee, > 20, hyperdyanamic ventricle, full report is pending. Assessment/Plan 66 yo female admitted 05/02/17 with CVA and had elevated troponins. Medically managed with coumodin, plavix, statin and inhalers but readmitted with CP. Cardiac catheterization today shows occlusion of the distal RCA with collateral flow and moderate LAD disease and elevated left ventricular end diastolic pressure. The patient continues to smoke, has elevated BP. Has lung cancer as well. CAD: -Risks: Needs to stop smoking, continue statin and optimize BP (neuro can assist with goals post CVA). If the patient qualifies I would enroll in cardiac rehab. -CP: Based on cath information vasodilators to improve collateral flow and BP lowering agents to decrease LVEDP could help with CP. Agree with Nitrates. Consider Amlodipine, diltiazem or similar. ACEI if BP not optimally controlled with the above agents. COPD and Lung CA management via hospitalist/primary care and oncology. I am happy to see the patient in follow up, office: [phone].
[2017-05-19] MEDS ORDERED: Warfarin TAB(*) 5 MG PO SCH (17:00)
[2017-05-19] MEDS: Atorvastatin* 40 MG TAB PO SCH (17:31)
[2017-05-19] MEDS: Acetaminophen TAB* 325 MG PO PRN (19:21)
[2017-05-19] MEDS: Mometasone 220 MCG MDI INH SCH (20:52)
[2017-05-19] MEDS: Heparin VIAL(*) 5000 UNITS/ML VIAL (FIVE THOUSAND) SUBCUT SCH (21:13)
[2017-05-20] MEDS ORDERED: oxyCODONE TAB* 5 MG TAB PO PRN
[2017-05-20] MEDS: Gabapentin CAP(*) 300 MG PO PRN (02:42)
--- NOTE | 2017-05-20 05:13 | CATH ---
CC: Guerrero Gtz NP; Dr. Magaly Jim; Dr. Dutch Rain * CARDIAC CATHETERIZATION REPORT: DATE OF PROCEDURE: 05/19/17 - ROOM #441 INDICATION FOR THE PROCEDURE: The patient with continued bouts of chest discomfort following a prior non-STEMI on prior hospitalization at that time when the patient had had a CVA, now for assessment of her coronary anatomy to define her status and assess severity. PROCEDURE: Coronary arteriography, left heart catheterization, left ventriculography. The patient was interviewed and examined on the floor of the hospital where the risks and benefits were explained. She understood them and wished to proceed. The right radial artery was assessed and found to be too small for an approach and as such the right femoral artery approach was to be pursued. The risk and benefits were explained. She understood them and wished to proceed. The patient was brought into the cardiovascular laboratory where a formal time-out was performed. She was prepped and draped in sterile fashion. The right groin area was anesthetized with 1% lidocaine. Right femoral artery was cannulated using anterior wall stick only and a 5-Stateless sheath was placed. A coronary arteriography was performed utilizing a 5-Stateless FL 3.5 curve left coronary catheter and a 5- Stateless 4 Peng left coronary catheter. Central aortic pressure was recorded using a 5- Stateless angled pigtail catheter, advanced to the ascending aorta. The catheter was then passed across the aortic valve into the left ventricle where left ventricular pressure was recorded. Left ventriculography was performed utilizing a 5-Stateless pigtail catheter advanced the ascending aorta. The catheter was then passed across the aortic valve into the left ventricle, where left ventricular pressure was recorded. Left ventriculography was performed utilizing a total of 24 cc of Omnipaque dye at a rate of 12 cc per second. The catheter was then pulled back across the aortic valve to recheck gradient. Following this, the catheter was removed. The sheath was removed manually with hemostasis obtained with local pressure. The total contrast used was 105 cc of Visipaque dye. The radiation exposure included 8.8 minutes of fluoro time. The air kerma radiation was 521 milligray. The DAP radiation was 3282 microgray per meter square. RESULTS: LEFT HEART CATHETERIZATION: Central aortic pressure was recorded at 186/87 with a mean of 128. Left ventricular pressure 180 over left ventricular end-diastolic of 21 to 23 mmHg. LEFT VENTRICULOGRAPHY: A. TRAYLOR projection - there appeared to be hyperdynamic left ventricular systolic function with an ejection fraction in excess of 80%. B. RAMESH projection - revealed very mild proximal posterior wall hypokinesis with well-preserved ventricular systolic function. CORONARY ARTERIOGRAPHY: A. Left coronary artery: 1. Left main - widely patent with no significant disease. 2. Left anterior descending artery - the left anterior descending artery was calcified in its proximal to mid segment. There was 30% narrowing in the proximal segment leading up to the first septal electro mechanical assembler with further narrowing to a 60% to 65% stenosis. Past this point, there was mild luminal irregularities. The LAD supplied a thin first diagonal branch followed by somewhat larger sized mid diagonal branch and several other small distal diagonal branches. 3. Circumflex artery - a nondominant vessel supplying a very high first obtuse marginal branch versus trifurcation of marginal branch followed by a second high obtuse marginal branch. Past this point with the continuation of the circumflex that supplied the mid to distal inferior wall. Of note, all of the left coronary artery vessels appeared to have a corkscrew appearance suggestive of left ventricular hypertrophy. Collateral blood flow was seen to the distal right coronary artery posterior left ventricular branch through collaterals from the left system. B. Right coronary artery: A dominant vessel supplying several acute marginal branches with a large acute marginal branch after the artery turned on to the inferior surface supplying the mid to distal inferior septal wall followed by the PDA supplying the more proximal inferior wall. The right coronary artery was found to be totally occluded past this point with right-to- right collaterals filling the posterior left ventricular branch in a retrograde fashion. A gap was seen in the right coronary system after the PDA leading to the posterior left ventricular branch. The mid portion of the right coronary artery had irregularities with an ulcerated lesion seen. The degree of narrowing in that area was 30%. OVERALL ASSESSMENT: Hyperdynamic left ventricular systolic function with mid to high posterolateral wall not at all indicative of the area with decreased perfusion to the distal right coronary artery which has supply to it via both left-to- right collaterals and [id number] collaterals. There was borderline significant lesion in mid LAD area. It should be noted that a prior stress test did not show any nuclear ischemia to the anterior apical region. At this point in time, aggressive medical management should be pursued in order to buy time as well for desensitization of aspirin as clearly the LAD is in a borderline range such that any progression will lead to the need for stent placement. A consideration for trying to reopen the right coronary artery distal area would be if despite maximum medical management clear definitive symptomatic anginal episodes continue. Hopefully by that time, desensitization has well already taken place and aspirin therapy and clopidogrel therapy combined can be utilized especially in light of treatment of a totally occluded vessel. As always, other measures towards aggressive risk factor management need to be aggressively pursued. [id number]/[facility] #: [id number] NICOLE
[2017-05-20] MEDS: Heparin VIAL(*) 5000 UNITS/ML VIAL (FIVE THOUSAND) SUBCUT SCH (06:15)
[2017-05-20] MEDS: Clopidogrel TAB* 75 MG PO SCH (08:47)
[2017-05-20] MEDS: Metoprolol Succinate XL TAB* 25 MG PO SCH (08:47)
[2017-05-20] MEDS: Levothyroxine TAB* 175 MCG TAB PO SCH (08:47)
[2017-05-20] MEDS: Isosorbide Mononitrate ER TAB* 60 MG PO SCH (08:47)
[2017-05-20] MEDS: DULoxetine DR CAP* 60 MG CAP.DR PO SCH (08:48)
[2017-05-20] MEDS: Pantoprazole TAB (NF) 40 MG TAB PO SCH (08:48)
[2017-05-20 08:52] VITALS: BP 137/94
[2017-05-20] MEDS ORDERED: amLODIPine TAB* 5 MG PO SCH (09:00)
[2017-05-20] MEDS: Acetaminophen TAB* 325 MG PO PRN (09:54)
[2017-05-20 10:10] LABS: Hematocrit 28 % (35-47); Hemoglobin 8.9 g/dl (12.0-16.0); Mean Corpuscular HGB Conc 33 g/dl (31-36); Mean Corpuscular Hemoglobin 31 pg (27-31); Mean Corpuscular Volume 95 fL (80-97); Mean Platelet Volume 9 um3 (7.4-10.4); Platelet Count 303 10^3/ul (150-450); Red Blood Count 2.89 10^6/ul (4.0-5.4); Red Cell Distribution Width 18 % (10.5-15); White Blood Count 8.2 10^3/ul (3.5-10.8)
[2017-05-20 10:18] LABS: INR 1.04 (0.77-1.02)
[2017-05-20 10:31] LABS: EGFR Non-African American 66.2 (>60)
[2017-05-20] MEDS ORDERED: traMADol TAB* 50 MG PO ONE (11:58)
--- NOTE | 2017-05-21 04:23 | DS ---
CC: Dr. Alphonso Rogers* DISCHARGE SUMMARY: DATE OF ADMISSION: 05/17/17 DATE OF DISCHARGE: 05/20/17 PRIMARY CARE PROVIDER: Guerrero Gtz NP PRIMARY DIAGNOSES: 1. Chest pain with totally occluded RCA, 50% mid LAD. 2. Coronary artery disease. 3. Recent history of cerebrovascular accident. SECONDARY DIAGNOSES: Include: 1. Chronic obstructive pulmonary disease. 2. Lung cancer. 3. Anxiety. 4. Known patent foramen ovale. 5. Hypothyroidism. 6. Chronic pain. 7. Hyperlipidemia. 8. Hypertension. MEDICATIONS ON DISCHARGE: 1. Relafen 750 mg 3 times a day as needed. 2. Gabapentin 300 mg 3 times a day as needed. 3. Cymbalta 60 mg daily. 4. Clopidogrel 75 mg daily. 5. Atorvastatin 40 mg in the evening. 6. Albuterol 2 puffs every 4 hours as needed. 7. Seroquel 200 to 300 mg at bedtime as needed. 8. Omeprazole 40 mg twice daily. 9. Metoprolol succinate 25 mg daily. 10. Lisinopril 5 mg daily. 11. Levothyroxine 175 mcg daily. 12. Ipratropium 0.5 mg 4 times a day as needed. 13. Fluticasone 1 puff inhaled twice daily. 14. Coumadin 5 mg daily. 15. Amlodipine 5 mg daily, new medication. 16. Isosorbide mononitrate ER 60 mg daily, new medication. LABS AND TESTING AFTER DISCHARGE: INR ordered for the Wednesday after discharge, 05/24. PERTINENT LABORATORY DATA: During the course of the hospital stay, INR on presentation 2, INR on discharge 1.0. Troponin I 0.01 on four consecutive checks. PERTINENT PROCEDURES PERFORMED DURING HOSPITAL STAY: Cardiac catheterization performed by Dr. Rogers, impression: Totally occluded RCA with collaterals, hypodynamic left ventricular systolic function, 50% to 60% occluded LAD. HISTORY OF PRESENT ILLNESS AND HOSPITAL COURSE: This is a 66-year-old female with past medical history as outlined in the history of present illness on the day of admission including COPD, lung cancer, PE, recent CVA with residual left hand weakness, and CAD with recent NSTEMI May 01, returned to the hospital with a chest discomfort. She received vitamin K for her INR and was monitored until it was accept before the procedure. She also underwent a CT head to evaluate for any hemorrhage into a recent CVA prior to performing a left heart cath. The results of procedure were indicated above. No intervention was taken as the RCA was totally occluded and the mid LAD did not want intervention. The patient was seen and consulted by Cardiology, recommended medical management to target improved collateral flow to the area distal to the occluded RCA. Imdur as well as amlodipine were both started. She tolerated medications without untoward side effects prior to her discharge. There is likely up titrate his medications on followup. Additionally, it is noted that she has an ASPIRIN allergy and at some point in the future she may require coronary artery stents, benefit from dual- antiplatelet therapy. There was some discussion about future desensitization to aspirin, which we will leave to supply chain assistant to discuss it further. Smoking cessation counseling was performed with the patient who is precontemplative. At follow, please; 1. Follow INR, titrate Coumadin as necessary. The patient was not bridged with Lovenox secondary to recent stroke and concern for over anticoagulation causing hemorrhage. 2. Follow up patient, up titrate nitrates and/or amlodipine as blood pressure will tolerate to improve optimal collateral flow. 3. Consider future aspirin desensitization. Reasons to return to the hospital including, but not limited to recurrent or worsening symptoms, chest pain, shortness of breath, nausea, vomiting, lightheadedness, loss of consciousness, inability to tolerate medications, bleeding from any source was discussed with the patient. She acknowledged understanding. TIME SPENT: Greater than 60 minutes was spent in the discharge of this patient , greater than half was spent [id number] with the patient. [id number]/[facility] #: [id number] NICOLE
== END 2017-05-20 13:13 | disposition home health service (06) | DRG 287 ==
LOC: ED 10:58 → MEDTELE 14:32 → OBSVTOIN 05-18 11:58
PROVIDERS: ADMIT Internal Medicine; ATTEND Internal Medicine
PROC: B215YZZ Fluoroscopy of Left Heart using Other Contrast (ICD-10-PCS; 2017-05-19)
PROC: 4A023N7 Measurement of Cardiac Sampling and Pressure, Left Heart, Percutaneous Approach (ICD-10-PCS; 2017-05-19)
PROC: B211YZZ Fluoroscopy of Multiple Coronary Arteries using Other Contrast (ICD-10-PCS; principal; 2017-05-19 07:00)
DX: I25.119 Atherosclerotic heart disease of native coronary artery with unspecified angina pectoris (principal); I95.9 Hypotension, unspecified; I27.20 Pulmonary hypertension, unspecified; J44.9 Chronic obstructive pulmonary disease, unspecified; I69.398 Other sequelae of cerebral infarction; E83.42 Hypomagnesemia; M41.9 Scoliosis, unspecified; Q21.1 Atrial septal defect; Z85.118 Personal history of other malignant neoplasm of bronchus and lung; F41.9 Anxiety disorder, unspecified; E03.9 Hypothyroidism, unspecified; E78.5 Hyperlipidemia, unspecified; I10 Essential (primary) hypertension; Z86.711 Personal history of pulmonary embolism; F32.9 Major depressive disorder, single episode, unspecified; K21.9 Gastro-esophageal reflux disease without esophagitis; Z90.710 Acquired absence of both cervix and uterus; Z88.8 Allergy status to other drugs, medicaments and biological substances; Z91.040 Latex allergy status; Z82.49 Family history of ischemic heart disease and other diseases of the circulatory system; Z81.1 Family history of alcohol abuse and dependence; F17.210 Nicotine dependence, cigarettes, uncomplicated; I25.2 Old myocardial infarction; Z87.01 Personal history of pneumonia (recurrent); G43.909 Migraine, unspecified, not intractable, without status migrainosus; H26.9 Unspecified cataract; H91.91 Unspecified hearing loss, right ear; Z80.8 Family history of malignant neoplasm of other organs or systems; Z83.79 Family history of other diseases of the digestive system; R40.0 Somnolence; R45.1 Restlessness and agitation; Z92.21 Personal history of antineoplastic chemotherapy; G89.4 Chronic pain syndrome; Z79.01 Long term (current) use of anticoagulants
CPT/HCPCS: 36415; 70450; 71010; 76937; 80048; 80053; 83605; 83735; 83880; 84443; 84484; 85025; 85027; 85610; 85730; 93005; 93458; 96365; 96366; 96375; 96376; 99156; 99157; 99282; 99284; 99406; A9270-GY; C1887; G0378; J1644; J2250; J2270; J2310; J3010; J3475

== ENCOUNTER 2017-05-31 22:09 | Observation (INO) | payer MEDICARE, BC ==
[2017-05-31] MEDS ORDERED: Morphine INJ* 4 MG/ML 1 ML CARPUJECT IV ONE ×2 (22:56→23:58)
[2017-05-31] MEDS ORDERED: Ondansetron INJ* 2 MG/ML VIAL IV ONE (22:56)
[2017-05-31 23:46] LABS: ABS Basophils 0.1 10^3/ul (0-0.2); ABS Eosinophils 0 10^3/ul (0-0.6); ABS Lymphocytes 1.1 10^3/ul (1.0-4.8); ABS Monocytes 1.1 10^3/ul (0-0.8); ABS Neutrophils 11.4 10^3/ul (1.5-7.7); ABS Nucleated RBC 0.01 10^3/ul; Eosinophil % 0.4 % (0-6); Hematocrit 31 % (35-47); Hemoglobin 10.3 g/dl (12.0-16.0); Lymphocyte % 8.3 % (25-47); Mean Corpuscular HGB Conc 33 g/dl (31-36); Mean Corpuscular Hemoglobin 31 pg (27-31); Mean Corpuscular Volume 93 fL (80-97); Mean Platelet Volume 8 um3 (7.4-10.4); Nucleated Red Blood Cells % 0; Platelet Count 478 10^3/ul (150-450); Red Blood Count 3.31 10^6/ul (4.0-5.4); Red Cell Distribution Width 17 % (10.5-15); White Blood Count 13.8 10^3/ul (3.5-10.8)
[2017-05-31 23:56] LABS: EGFR Non-African American 44.2 (>60)
[2017-06-01] LABS: INR 1.46 (0.77-1.02)
--- NOTE | 2017-06-01 00:14 | ED ---
Danny Winkler Gabriel, scribed for Carolina Weber MD on 05/31/17 at 2302 . HPI Chest Pain - HPI Summary HPI Summary: This patient is a 66 year old F back to [facility] with a chief complaint of CP since 2129. The patient rates the constant pressure pain 6/10 in severity and located on her left side. Patient reports tingling in her hands and decrease in mental acuity. Patient denies diaphoresis and SOB. Patient states she had a silent heart attack a month ago and a CVA on 05/01/17 that left her with left sided UE weakness. - History of Current Complaint Chief Complaint: EDChestPainROMI Time Seen by Provider: 05/31/17 22:23 Hx Obtained From: Patient Onset/Duration: Still Present Time of Onset: 21:30 Timing: Constant Initial Severity: Moderate Current Severity: Moderate Pain Intensity: 6 Pain Scale Used: 0-10 Numeric Chest Pain Location: Left Anterior Chest Pain Radiates: No Character: Pressure/Squeezing Associated Signs and Symptoms: Positive: Other: - tingling in her hands, decrease in mental acuity. Negative: Shortness of Breath, Diaphoresis - Additional Pertinent History Primary Care Physician: [id number] - Allergy/Home Medications Allergies/Adverse Reactions: Allergies Allergy/AdvReac Type Severity Reaction Status Date / Time Aspirin Allergy Severe Anaphylatic Verified 05/18/17 11:56 Shock Latex AdvReac Mild Rash Verified 05/17/17 11:24 PMH/Surg Hx/FS Hx/Imm Hx Endocrine/Hematology History: Reports: Hx Thyroid Disease - hypothyroid, Other Endocrine/Hematological Disorders - Benign goiter Denies: Hx Bone Marrow Disease, Hx Diabetes, Hx Systemic Lupus Erythematosus Cardiovascular History: Reports: Hx Angina - pressure, not pain, Hx Hypercholesterolemia - was high before cancer,now off meds., Hx Hypertension, Hx Myocardial Infarction - NSTEMI, Other Cardiovascular Problems/Disorders - patent foramen ovale; Murmur, Denies: Hx Congestive Heart Failure, Hx Coronary Artery Disease, Hx Pacemaker /ICD, Hx Valvular Heart Disease Respiratory History: Reports: Hx Asthma, Hx Chronic Obstructive Pulmonary Disease (COPD), Hx Lung Cancer - Left upper lobectomy, Hx Pneumonia, Other Respiratory Problems/Disorders - lung cancer, LOBECTOMY 09/11/11 GI History: Reports: Hx Gastroesophageal Reflux Disease, Hx Hiatal Hernia, Other GI Disorders - hiatal hernia, colitis. 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, Hx Osteoporosis - Possible, Hx Scoliosis, Other Musculoskeletal History - scoliosis Denies: Hx Rheumatoid Arthritis Sensory History: Reports: Hx Cataracts - PATIENT STATES BEGINING OF CATARACTS LEFT EYE, Hx Contacts or Glasses, Hx Hearing Problem - right Denies: Hx Hearing Aid Opthamlomology History: Reports: Hx Cataracts - PATIENT STATES BEGINING OF CATARACTS LEFT EYE, Hx Contacts or Glasses Neurological History: Reports: Hx CVA - in 05/16, Hx Headaches - frequent h/a's , Hx Migraine - Rare post menopause Psychiatric History: Reports: Hx Anxiety, Hx Depression, Hx Community Mental Health Tx, Hx Substance Abuse - opiods Denies: Hx Panic Disorder, Hx Inpatient Treatment - Cancer History Cancer Type, Location and Year: LUNG CA, DIAGNOSED July 2012 Hx Chemotherapy: Yes Hx Radiation Therapy: No Hx Palliative Cancer Treatment: No - Surgical History Surgery Procedure, Year, and Place: LEFT UPPER LUNG REMOVED 09/2012, HYSTERECTOMY , tonsillectomy Hx Anesthesia Reactions: No - Immunization History Date of Tetanus Vaccine: UTD Date of Influenza Vaccine: 05/01/16 Infectious Disease History: No Infectious Disease History: Denies: Hx of Known/Suspected MRSA, Traveled Outside the [place] in Last 30 Days - Family History Known Family History: Positive: Cardiac Disease - Sudden cardiac arrest (father) , Other - son -- glioblastoma. UC mother. Fhx of colitis. - Social History Alcohol Use: None Hx Substance Use: No Substance Use Type: Reports: Other Substance Use Comment - Amount & Last Used: percocet Hx Tobacco Use: Yes Smoking Status (MU): Heavy Every Day Tobacco Smoker Type: Cigarettes Amount Used/How Often: 1/2 pack a day Length of Time of Smoking/Using Tobacco: 47 years Have You Smoked in the Last Year: Yes Review of Systems Negative: Skin Diaphoresis Positive: Chest Pain Negative: Shortness Of Breath Neurological: Other - tingling in her hands, decrease in mental acuity All Other Systems Reviewed And Are Negative: Yes Physical Exam - Summary Physical Exam Summary: VITAL SIGNS: Reviewed. GENERAL: Patient is a well-developed and nourished female who is lying comfortable in the stretcher. Patient is not in any acute respiratory distress. HEAD AND FACE: No signs of trauma. No ecchymosis, hematomas or skull depressions. No sinus tenderness. EYES: PERRLA, EOMI x 2, No injected conjunctiva, no nystagmus. EARS: Hearing grossly intact. Ear canals and tympanic membranes are within normal limits. MOUTH: Oropharynx within normal limits. NECK: Supple, trachea is midline, no adenopathy, no JVD, no carotid bruit, no c- spine tenderness, neck with full ROM. CHEST: Symmetric, no tenderness at palpation LUNGS: Clear to auscultation bilaterally. No wheezing or crackles. CVS: Regular rate and rhythm, S1 and S2 present, no murmurs or gallops appreciated. ABDOMEN: Soft, non-tender. No signs of distention. No rebound no guarding, and no masses palpated. Bowel sounds are normal. EXTREMITIES: FROM in all major joints, no edema, no cyanosis or clubbing. Has weakness of left forearm NEURO: Alert and oriented x 3. No acute neurological deficits. Speech is normal and follows commands. SKIN: Dry and warm Triage Information Reviewed: Yes Vital Signs On Initial Exam: Initial Vitals Temp Pulse Resp BP Pulse Ox 97.3 F 56 20 146/104 100 05/31/17 22:10 05/31/17 22:10 05/31/17 22:10 05/31/17 22:10 05/31/17 22:10 Vital Signs Reviewed: Yes Diagnostics - Vital Signs Vital Signs Temp Pulse Resp BP Pulse Ox 05/31/17 22:10 97.3 F 56 20 146/104 100 - Laboratory Result Diagrams: 05/31/17 23:25 05/31/17 23:25 Lab Statement: Any lab studies that have been ordered have been reviewed, and results considered in the medical decision making process. - Radiology CXR Radiology Interpretation Completed By: ED Physician - no acute process - EKG 2129 Cardiac Rate: NL EKG Rhythm: Sinus Rhythm - at 96 BPM EKG Interpretation: Q waves in the anteroseptal leads, minimal St in inferior which is old EKG Comparison: No Significant Change - in comparison to EKG from 05/18/17 Chest Pain Course/Dx - Course Assessment/Plan: This patient is a 66 year old F back to [facility] with a chief complaint of CP since 2129. The patient rates the constant pressure pain 6/10 in severity and located on her left side. Patient reports tingling in her hands and decrease in mental acuity. Patient denies diaphoresis and SOB. Patient states she had a silent heart attack a month ago and a CVA on 05/01/17 that left her with left sided UE weakness. An EKG reveals Q waves in the anteroseptal leads minimal St in inferior which is old. CXR reveals, no acute process. Test results with no significant abnormalities except for a sodium of 122 and a BNP of 145. In the ED course the patient was given Zofran and morphine. The patient is allergic to ASA so she was not given any. We discussed patient care with Dr. Melton and they agreed to admit the patient. Patient [facility] be admitted to [facility]. The patient is agreeable with this plan. - Diagnoses Provider Diagnoses: Chest pain, Hyponatremia - Provider Notifications Discussed Care Of Patient With: Jose Crook MD Time Discussed With Above Provider: 00:09 Instructed by Provider To: Admit As Inpatient Discharge - Discharge Plan Condition: Fair Disposition: ADMITTED TO [facility] Referrals: Guerrero Gtz, DIE REPAIRER TRIMMER DIES [Primary Care Provider] - The documentation as recorded by the Danny crawford Gabriel accurately reflects the service I personally performed and the decisions made by me, Carolina Weber MD.
[2017-06-01] MEDS ORDERED: Acetaminophen TAB* 325 MG PO PRN (00:25)
[2017-06-01] MEDS ORDERED: Albuterol 2.5 MG/3 ML NEB.SOL* (0.083%) INH PRN ×2 (00:26→11:06)
[2017-06-01] MEDS ORDERED: CMCS: Melatonin (NF) 3 MG TAB PO PRN (00:26)
[2017-06-01] MEDS ORDERED: Ondansetron INJ* 2 MG/ML VIAL IV PRN (00:26)
[2017-06-01] MEDS ORDERED: NS 0.9% 1000 ML* 1,000 ML IV SCH ×2 (00:30→22:00)
--- NOTE | 2017-06-01 00:38 | HP ---
H&P (Free Text) History and Physical: PCP: Salvador Gtz NP Date/Time of Evaluation: 06/01/2017 0015 CC: chest pain HPI: Mrs Glover is a 65YO female HX adenoCA s/p L upper lobectomy, CAD/recent NSTEMI/cath with 100% RCA & 60-65% mid-LAD lesion (no stent), & COPD continuing to smoke who was sitting at home this evening around 2029 when she developed the rapid onset of moderate non-exertional, midsternal chest pressure radiating to the L shoulder without SOB, sweating, N/V, palpitations, or light- headedness. She became worried and called EMS. No aspirin given 2nd HX anaphylaxis. At this time she is symptom free. PMedHx adenoCA L lung s/p upper lobectomy & chemoTX COPD PFO HTN HLD hypothyroidism chronic LBP HX opioid & benzodiazepine abuse hiatal hernia Ambulatory Orders Nursing to reconcile. Levothyroxine TAB* [Synthroid 25 MCG TAB*] 175 mcg PO DAILY 02/09/16 Omeprazole CAP* [Prilosec CAP* 20 MG] 40 mg PO BID 05/02/16 Albuterol 2.5MG/3ML (0.083%)* [Ventolin 2.5 MG/3 ML NEB.ZACHARY*] 2.5 mg INH Q4H PRN 05/03/16 Albuterol HFA INHALER* [Ventolin HFA Inhaler*] 2 puff INH Q4H PRN 05/03/16 Ipratropium 0.5MG/2.5ML NEB* [Atrovent 0.5 MG NEB.ZACHARY*] 0.5 mg INH QID PRN 05/[address] CAP* [Cymbalta CAP*] 60 mg PO DAILY 02/07/17 Fluticasone HFA 220 mcg(NF) [Flovent Hfa 220 Mcg(NF)] 1 puff INH BID 02/07/17 QUEtiapine TAB* [Seroquel TAB*] 200 - 300 mg PO BEDTIME PRN 02/07/17 Atorvastatin* [Lipitor 40 MG*] 40 mg PO 1700 #30 tab 05/07/17 Clopidogrel TAB* [Plavix TAB*] 75 mg PO DAILY #30 tab 05/07/17 Lisinopril TAB* [Prinivil TAB 5 MG*] 5 mg PO DAILY #30 tab 05/07/17 Metoprolol Succinate XL TAB* [Toprol XL TAB*] 25 mg PO DAILY #30 tab.xl Warfarin TAB(*) [Coumadin TAB(*)] 5 mg PO DAILY@1700 #30 tab 05/07/17 Gabapentin CAP(*) [Neurontin 300 CAP(*)] 300 mg PO TID PRN 05/17/17 Nabumetone TAB* [Relafen TAB*] 750 mg PO TID PRN 05/17/17 Isosorbide Mononitrate ER TAB* [Imdur ER TAB*] 60 mg PO DAILY #30 tab.er amLODIPine TAB* [Norvasc 5 mg TAB*] 5 mg PO DAILY #30 tab 05/20/17 Allergies Aspirin Allergy (Severe, Verified 05/18/17 11:56) Anaphylatic Shock Latex Adverse Reaction (Mild, Verified 05/17/17 11:24) Rash swelling at contact area PSurgHx L upper lobectomy for adenoCA tonsillectomy hysterectomy SocHx: 06/01 - 3 PPD cigarettes w/ ~25PYHX, denies alcohol, HX opioid & benzodiazepine abuse currently abstinent; full code status FamHx: Mother: ulcerative colitis; Father: passed of [place] in his 50s; 1 child passed of suicide and another passed of complications of alcoholism ROS: as above, otherwise reviewed and all were negative Constitutional: NAD, normally developed, frail appearing white female vitals: Vital Signs Temp 36.3 C 05/31/17 22:10 Pulse 97 05/31/17 23:00 Resp 18 06/01/17 00:09 BP 110/72 05/31/17 23:34 Pulse Ox 99 05/31/17 23:00 Intake & Output 05/31/17 05/31/17 06/01/17 11:59 23:59 11:59 Weight 45.359 kg HEENM: atraumatic; sclera/conjunctiva: non-icteric/clear; hearing: clinically intact; oropharynx: clear, mucosa dry Neck: soft tissue: non-tender; thyroid: no mass Pulmonary: clear to auscultation B, fair aeration, no accessory muscle use CV: RR/RR, normal S1S2, no carotid bruit, no jugular venous distention, 2+ B DP/ PT, no edema Abdominal: soft, non-distended, non-tender, no rebound/guarding/rigidity, normoactive bowel sounds, no hepatosplenomegaly or masses, no costovertebral angle tenderness Musculoskeletal: general: grossly intact; gait: stable Integumental: normal appearance and texture Psychiatric orientation: AA&O to PPS affect: calm mood: cooperative eye contact: good content: reliable responses: timely insight: poor Testing: Lab Results 05/31/17 05/31/17 05/31/17 Range/Units 23:25 23:25 23:25 WBC (3.5-10.8) 10^3/ul RBC (4.0-5.4) 10^6/ul Hgb (12.0-16.0) g/dl Hct (35-47) % MCV (80-97) fL MCH (27-31) pg MCHC (31-36) g/dl RDW (10.5-15) % Plt Count (150-450) 10^3/ul MPV (7.4-10.4) um3 Neut % (Auto) (38-83) % Lymph % (Auto) (25-47) % [place] % (Auto) (1-9) % Eos % (Auto) (0-6) % Baso % (Auto) (0-2) % Absolute Neuts (auto) (1.5-7.7) 10^3/ul Absolute Lymphs (auto) (1.0-4.8) 10^3/ul Absolute Monos (auto) (0-0.8) 10^3/ul Absolute Eos (auto) (0-0.6) 10^3/ul Absolute Basos (auto) (0-0.2) 10^3/ul Absolute Nucleated RBC 10^3/ul Nucleated RBC % INR (Anticoag Therapy) 1.46 H (0.77-1.02) APTT 44.5 H (26.0-36.3) seconds Sodium 122 L (133-145) mmol/L Potassium 4.1 (3.5-5.0) mmol/L Chloride 91 L (101-111) mmol/L Carbon Dioxide 19 L (22-32) mmol/L Anion Gap 12 H (2-11) mmol/L BUN 14 (6-24) mg/dL Creatinine 1.22 H (0.51-0.95) mg/dL Est GFR ( Amer) 56.9 (>60) Est GFR (Non-Af Amer) 44.2 (>60) BUN/Creatinine Ratio 11.5 (8-20) Glucose 60 L (70-100) mg/dL Lactic Acid (0.5-2.0) mmol/L Calcium 9.2 (8.6-10.3) mg/dL Total Bilirubin 0.40 (0.2-1.0) mg/dL AST 23 (13-39) U/L ALT 11 (7-52) U/L Alkaline Phosphatase 73 (34-104) U/L Total Creatine Kinase 167 (10-223) U/L Troponin I 0.01 (<0.04) ng/mL B-Natriuretic Peptide 145 H ( - 100) pg/mL Total Protein 6.8 (6.4-8.9) g/dL Albumin 4.0 (3.2-5.2) g/dL Globulin 2.8 (2-4) g/dL Albumin/Globulin Ratio 1.4 (1-3) 05/31/17 05/31/17 Range/Units 23:25 23:25 WBC 13.8 H (3.5-10.8) 10^3/ul RBC 3.31 L (4.0-5.4) 10^6/ul Hgb 10.3 L (12.0-16.0) g/dl Hct 31 L (35-47) % MCV 93 (80-97) fL MCH 31 (27-31) pg MCHC 33 (31-36) g/dl RDW 17 H (10.5-15) % Plt Count 478 H D (150-450) 10^3/ul MPV 8 (7.4-10.4) um3 Neut % (Auto) 82.7 (38-83) % Lymph % (Auto) 8.3 L (25-47) % [place] % (Auto) 8.2 (1-9) % Eos % (Auto) 0.4 (0-6) % Baso % (Auto) 0.4 (0-2) % Absolute Neuts (auto) 11.4 H (1.5-7.7) 10^3/ul Absolute Lymphs (auto) 1.1 (1.0-4.8) 10^3/ul Absolute Monos (auto) 1.1 H (0-0.8) 10^3/ul Absolute Eos (auto) 0 (0-0.6) 10^3/ul Absolute Basos (auto) 0.1 (0-0.2) 10^3/ul Absolute Nucleated RBC 0.01 10^3/ul Nucleated RBC % 0 INR (Anticoag Therapy) (0.77-1.02) APTT (26.0-36.3) seconds Sodium (133-145) mmol/L Potassium (3.5-5.0) mmol/L Chloride (101-111) mmol/L Carbon Dioxide (22-32) mmol/L Anion Gap (2-11) mmol/L BUN (6-24) mg/dL Creatinine (0.51-0.95) mg/dL Est GFR ( Amer) (>60) Est GFR (Non-Af Amer) (>60) BUN/Creatinine Ratio (8-20) Glucose (70-100) mg/dL Lactic Acid 0.7 (0.5-2.0) mmol/L Calcium (8.6-10.3) mg/dL Total Bilirubin (0.2-1.0) mg/dL AST (13-39) U/L ALT (7-52) U/L Alkaline Phosphatase (34-104) U/L Total Creatine Kinase (10-223) U/L Troponin I (<0.04) ng/mL B-Natriuretic Peptide ( - 100) pg/mL Total Protein (6.4-8.9) g/dL Albumin (3.2-5.2) g/dL Globulin (2-4) g/dL Albumin/Globulin Ratio (1-3) ECG, personally reviewed: NSR rate 96, poor R-wave progression, Q-waves II/III/ AVF, J-point elevation V2-3; similar to comparison 05/18/2017 CXR, personally reviewed: no acute process Impression: 66F HX adenoCA lung, COPD, & CAD/NSTEMI/cath showing 100% RCA & 60- 65% LAD (no stents) presents with chest pain for r/o ACS DIAGNOSIS & PLAN Primary chest pain r/o ACS : HX CAD, recent NSTEMI : NPO after midnight x/ meds w/ sips H2O : no aspirin 2nd anaphylaxis : telemetry : trend troponin : supplemental oxygen : consider cardiology consult in AM hypoNatremia w/ HX adenoCA lung : volume depletion favored over SIADH : NS IVFs overnight and trend BMPs COPD not in exacerbation : albuterol nebs PRN : smoking cessation advised, low motivation : supportive care Secondary PFO : no acute issues HTN : review meds once reconciled HLD : review meds once reconciled hypothyroidism : review meds once reconciled chronic LBP : review meds once reconciled : HX opioid & benzodiazepine abuse, avoid hiatal hernia/GERD : omeprazole Admission Rational: observation for r/o ACS DVTp: heparin SQ & SCDs Code Status: full HCP: daughter, Yesy Glover
[2017-06-01] MEDS ORDERED: D5NS 0.9% 1000 ML BAG* 1,000 ML IV SCH ×2 (01:00→04:15)
[2017-06-01 03:45] LABS: ABS Basophils 0.1 10^3/ul (0-0.2); ABS Eosinophils 0.1 10^3/ul (0-0.6); ABS Lymphocytes 1.4 10^3/ul (1.0-4.8); ABS Monocytes 1.1 10^3/ul (0-0.8); ABS Neutrophils 6.4 10^3/ul (1.5-7.7); ABS Nucleated RBC 0 10^3/ul; Eosinophil % 0.9 % (0-6); Hematocrit 29 % (35-47); Hemoglobin 9.6 g/dl (12.0-16.0); Lymphocyte % 15.9 % (25-47); Mean Corpuscular HGB Conc 33 g/dl (31-36); Mean Corpuscular Hemoglobin 31 pg (27-31); Mean Corpuscular Volume 94 fL (80-97); Mean Platelet Volume 8 um3 (7.4-10.4); Nucleated Red Blood Cells % 0; Platelet Count 426 10^3/ul (150-450); Red Blood Count 3.09 10^6/ul (4.0-5.4); Red Cell Distribution Width 18 % (10.5-15); White Blood Count 9.1 10^3/ul (3.5-10.8)
[2017-06-01 03:59] LABS: EGFR Non-African American 42.6 (>60)
[2017-06-01] MEDS ORDERED: Omeprazole CAP* 20 MG PO SCH ×2 (06:00→21:00)
[2017-06-01 06:36] LABS: EGFR Non-African American 44.2 (>60); INR 1.46 (0.77-1.02)
--- NOTE | 2017-06-01 07:42 | RAD ---
INDICATION: Chest pain. COMPARISON: Comparison is made with a prior chest x-ray study from May 16, 2017. TECHNIQUE: A portable view of the chest was obtained. FINDINGS: The heart is within normal limits in size. The patient appears to be status post left upper lobectomy. There is volume loss on the left side consistent with the patient's surgery which is unchanged. The lungs are clear. No pleural effusion is seen. IMPRESSION: POSTSURGICAL CHANGES, NO EVIDENCE FOR ACUTE FINDING.
[2017-06-01] MEDS: Docusate CAP* 100 MG PO SCH ×2 (08:54→20:02)
[2017-06-01] MEDS ORDERED: QUEtiapine TAB* 100 MG PO PRN (11:06)
[2017-06-01] MEDS ORDERED: Gabapentin CAP(*) 300 MG PO PRN (11:06)
[2017-06-01] MEDS ORDERED: Nabumetone TAB* 500 MG PO PRN (11:06)
[2017-06-01] MEDS ORDERED: Albuterol HFA INHALER* 8 gm MDI INH PRN (11:06)
[2017-06-01] MEDS ORDERED: Ipratropium 0.5MG/2.5ML NEB* 0.5 MG/2.5 ML NEB.SOLN INH PRN (11:06)
[2017-06-01] MEDS ORDERED: Isosorbide Mononitrate ER TAB* 60 MG PO SCH (11:26)
[2017-06-01] MEDS ORDERED: amLODIPine TAB* 5 MG PO SCH (12:00)
[2017-06-01] MEDS: DULoxetine DR CAP* 30 MG CAP.DR PO SCH (12:02)
[2017-06-01] MEDS: Clopidogrel TAB* 75 MG PO SCH (12:02)
[2017-06-01] MEDS: CMC Pantoprazole TAB (NF) 40 MG TAB PO SCH ×2 (12:02→20:01)
[2017-06-01] MEDS ORDERED: Metoprolol Succinate XL TAB* 25 MG PO ONE (13:41)
[2017-06-01] MEDS: traMADol TAB* 50 MG PO PRN (14:50)
[2017-06-01] MEDS ORDERED: Warfarin TAB(*) 5 MG PO SCH (17:00)
[2017-06-01] MEDS ORDERED: Atorvastatin* 40 MG TAB PO SCH (17:00)
--- NOTE | 2017-06-01 17:35 | ECHO ---
Patient: ELIUD UGALDE [facility] Rec#: [id number] : 1950 Date: 06/01/2017 Age: 66y Height: 152.4 cm / 60.0 in Weight: 44 kg / 97.0 lbs Sex: F BSA: 1.37 Room#: [facility] Admit Date#: 05/31/2017 Type: Inpatient Referring: Tony Galloway MD Reading: Alphonso Rogers MD Board Hammer Operator: Katrina Johnson RN RDCS CC: Guerrero Gtz NP Transthoracic Echocardiogram Indication: Cardiac murmur, chest pain BP: 128/63 HR: 98 Rhythm: NSR Findings History: COPD, lung cancer S/P ROMAIN lobectomy and chemotherapy, smoker, PFO, HTN, HLD, hypothyroidism Technical Comments: The study quality is fair. Completed at 1655. Left Ventricle: The left ventricular chamber size is normal. Basal septal hypertrophy and systolic anterior motion of the mitral valve are observed creating an outflow tract gradient. Peak gradient with valsalva across the LV outflow tract approx. 60 mm hg. Global left ventricular wall motion and contractility are within normal limits. The left ventricle appears hyperdynamic. The estimated ejection fraction is greater than 65%. Abnormal left ventricular diastolic filling is observed, consistent with impaired relaxation. Left Atrium: The left atrium is mildly dilated. Right Ventricle: The right ventricle is slightly dilated. The right ventricular global systolic function is normal. Right Atrium: The right atrial cavity size is normal. A patent foramen ovale is visualized. A patent foramen ovale is demonstrated by color Doppler. Aortic Valve: The aortic valve is trileaflet. The aortic valve leaflets are mildly thickened. There is moderate thickening of the left coronary cusp. There is moderate thickening of the non coronary cusp. Systolic excursion of the non coronary cusp is reduced. Systolic excursion of the left coronary cusp is reduced. There is no evidence of aortic regurgitation. There is borderline aortic stenosis present. Mitral Valve: There is posterior mitral annular calcification. The mitral valve leaflets are mildly thickened. There is mild mitral regurgitation. There is no evidence of mitral stenosis. Systolic anterior motion is visualized with left ventricular outflow tract obstruction. Tricuspid Valve: The tricuspid valve leaflets are normal. There is mild tricuspid regurgitation. No pulmonary hypertension is noted. There is no tricuspid stenosis. Pulmonic Valve: The pulmonic valve appears normal. There is trace to mild pulmonic regurgitation. There is no pulmonic stenosis. Pericardium: There is no significant pericardial effusion. Aorta: There is no dilatation of the ascending aorta. The aortic arch is not well visualized. There is no dilation of the aortic root. Pulmonary Artery: The main pulmonary artery appears normal. Venous: The inferior vena cava appears normal in size. There is a greater than 50% respiratory change in the inferior vena cava dimension. Conclusions Mild concentric LV hypertrophy is noted Basal septal hypertrophy and systolic anterior motion of the mitral valve are observed creating an outflow tract gradient. The left ventricle appears hyperdynamic. The estimated ejection fraction is greater than 65%. Abnormal left ventricular diastolic filling is observed, consistent with impaired relaxation. The left atrium is mildly dilated. A patent foramen ovale is visualized. A patent foramen ovale is demonstrated by color Doppler. There is borderline aortic stenosis present. There is mild mitral regurgitation. Systolic anterior motion is visualized with left ventricular outflow tract obstruction. There is mild tricuspid regurgitation. No pulmonary hypertension is noted. There is trace to mild pulmonic regurgitation. Compared to report of study from 05/01/2017 the overall LV systolic function is greater (was approx. 60 %). There is now an LV outflow gradient with systolic anterior motion of the mitral valve leaflets. Measurements Name Value Normal Range RVDdMajor (2D) 3.6 cm (2.2 - 4.4) RAd ISD 4CH 4.5 cm (3.4 - 4.9) RA (A4C)W 3.1 cm (2.9 - 4.6) IVSd (2D) 1 cm (0.6 - 1) LVPWd (2D) 1 cm (0.6 - 1) LVIDd (2D) 3.9 cm (3.6 - 5.4) Aortic Annulus 1.8 cm (1.4 - 2.6) Ao root diameter (2D) 2.5 cm (2.1 - 3.5) Ascending Ao 3.1 cm (2.1 - 3.4) LA dimension (AP) 2D 4 cm (2.3 - 3.8) LAd ISD 4CH 4.1 cm (2.9 - 5.3) LA ISD 4CH W 3.7 cm (2.5 - 4.5) Name Value Normal Range LA ESV SP 4CH (A/L) 35 ml - LA ESV SP 2CH (A/L) 32 ml - LA ESV BP (A/L) 36 ml - LA ESV BP (A/L) index 26.6 ml/m2 - LA ESV SP 4CH (MOD) 34 ml - LA ESV SP 2CH (MOD) 30 ml - Name Value Normal Range MV E-wave Vmax 0.75 m/sec - MV deceleration time 279 msec - MV A-wave Vmax 1.2 m/sec - MV E:A ratio 0.6 ratio - LV septal e' Vmax 0.05 m/sec - LV lateral e' Vmax 0.06 m/sec - LV E:e' septal ratio 15 ratio - LV E:e' lateral ratio 12.5 ratio - Name Value Normal Range AV Vmax 2.6 m/sec - AV VTI 48.6 cm - AV peak gradient 27.3 mmHg - AV mean gradient 18 mmHg - LVOT diameter 2 cm - LVOT Vmax 2 m/sec - LVOT VTI 35.7 cm - LVOT peak gradient 16.1 mmHg - LVOT mean gradient 9.6 mmHg - DIONNE (continuity Vmax) 2.4 cm2 - DIONNE (continuity VTI) 2.3 cm2 - Name Value Normal Range MV Vmax 1.8 m/sec - MV VTI 42 cm - MV peak gradient 13 mmHg - MV mean gradient 4.1 mmHg - MR Vmax 5.1 m/sec - MR VTI 106.5 cm - MR volume (PISA) 37.3 ml - MR flow (PISA) 178 ml/sec - MR ERO 0.35 cm2 - MR PISA radius 0.9 cm - MR alias Vmax 35 cm/sec - MVA (PHT) 5.9 cm2 - Name Value Normal Range TR Vmax 2.4 m/sec - TR peak gradient 23 mmHg - RAP 3 mmHg - RVSP 26 mmHg - IVC diameter 1.6 cm - Name Value Normal Range PV Vmax 1.1 m/sec -
[2017-06-01] MEDS ORDERED: Mometasone 220 MCG MDI INH SCH ×2 (18:00→21:00)
[2017-06-01 19:05] LABS: Urine Appearance Clear; Urine Blood Negative (Negative); Urine Color Yellow; Urine Ketones Trace (Negative); Urine Protein 1+(30 mg/dL) (Negative); Urine Specific Gravity 1.008 (1.010-1.030); Urine Urobilinogen Negative (Negative)
--- NOTE | 2017-06-01 20:14 | CONS ---
CC: Dr. Dutch Rain; Guerrero Gtz NP * CARDIOLOGY CONSULTATION REPORT: DATE OF CONSULT: 06/01/17 REASON FOR CONSULT: I asked to see the patient with history of CAD with chest discomfort. HISTORY OF PRESENT ILLNESS: The patient is a pleasant 66-year-old female with a known cardiac history, which includes a history of patent foramen ovale as well as a non-ST elevation myocardial infarction in the past questioning damage to the low posterolateral wall with cardiac catheterization demonstrated on with hyperdynamic left ventricular systolic function with an ejection fraction in excess of 80%. There was a question of perhaps at best very mild proximal posterior wall hypokinesis. Coronary arteriography shows the mid LAD to have a 65% lesion with a proximal 30% lesion. The LAD was a smaller vessel not extending well to the apical and to the inferior surface. The circumflex was a nondominant vessel, which had corkscrew appearance throughout its branches suggesting left ventricular hypertrophy. No significant disease was seen. The right coronary artery was a dominant vessel, which was found to be totally occluded after the posterior descending artery. There was a gap across the area, which suggested the presence of a chronic subtotal occlusion. Collateral blood flow was seen both from the right coronary artery to the distal right coronary artery as well as from the left coronary artery to the right coronary artery. Medical management was recommended at that time and she was placed on Imdur to help dilate collaterals and on low-dose beta-luis f 25 mg a day to be increased over time. She is currently still on that medication. In the past, she had been on metoprolol 25 mg twice a day in addition to amlodipine 5 mg a day. Currently, she is on lisinopril 5 mg a day. The patient presented now to this hospitalization stating that she was just sitting in a chair reading and developed the onset of a chest pressure sensation with a question of radiation to the left shoulder and upper left arm. The discomfort became more of a pressure sensation and last from 12:30 till about 9:30 p.m., at which point she called the ambulance and they brought her to the hospital and she arrived at 10 p.m. Of note despite having the symptoms for every second of every minute of every hour without letting up, her cardiac enzymes have been totally negative. Her EKG did not show acute ST-T wave changes. She currently denies any discomfort lying in bed. Her laboratory results otherwise had revealed an anemia with a hemoglobin currently of 9.6 and hematocrit of 29. She has renal insufficiency currently with a creatinine of 1.2. She has had a prior creatinine of 0.8 on 05/20. Of note, her sodium went from 131 on 05/20 down to 122 at the time of this admission. B-natriuretic peptide was found to be 145. Total CPK was 167. PAST MEDICAL HISTORY: Significant for chronic obstructive lung disease, lung cancer with resection of a lung and chemotherapy 4 years ago. She has history of chronic anxiety. The patent foramen ovale as mentioned, hypothyroidism, chronic pain syndrome in addition to hyperlipidemia, hypertension, pulmonary emboli in the past and a history in the past of hyponatremia. PAST SURGICAL HISTORY: Includes status post tonsillectomy, hysterectomy and resection of left upper lobe tumor. MEDICATIONS: Her medications on presentation according to the H and P included: 1. Levothyroxine 175 mcg a day. 2. Omeprazole 40 mg twice a day. 3. Albuterol inhalers. 4. Atrovent inhalers. 5. Cymbalta 60 mg a day. 6. Fluticasone inhaler. 7. Seroquel at bedtime p.r.n. 8. Atorvastatin 40 mg once a day. 9. Clopidogrel 75 mg daily. 10. Lisinopril 5 mg daily. 11. Metoprolol XL 25 mg daily. 12. Warfarin 5 mg daily. 13. Gabapentin 300 mg t.i.d. p.r.n. 14. Relafen 750 mg p.o. t.i.d. p.r.n. 15. Isosorbide mononitrate 60 mg a day. 16. Amlodipine 5 mg a day. ALLERGIES: Include ASPIRIN, reportedly a severe anaphylactic allergy of some 40 years ago, which was never clearly well documented and LATEX adverse reaction with rash and swelling at contact site. FAMILY HISTORY: Father had an ND in his 50s. Mother had ulcerative colitis. SOCIAL HISTORY: She smokes one and half three quarters of pack of cigarettes and unfortunately continues to smoke. Denies alcohol intake. REVIEW OF SYSTEMS: As per the H and P with no additional findings. PHYSICAL EXAMINATION: When I see her now reveals blood pressure 115/73 with a pulse of 106, respirations 20, O2 saturation 97% on room air, afebrile. Neck was supple. There was no obvious increased JVP. Carotid has good upstroke and volume. There is no definitive bruits. Conjunctivae are pink. Sclerae clear. Lungs revealed no accessory muscle usage. There is marked decreased breath sounds bilaterally. I do not hear any significant rales or rhonchi. Heart reveals no visible heaves. No palpable heaves or thrills. Normal S1 and S2. It is obliterated by a 3 to 4/6 holosystolic murmur at the right upper sternal border, toward the left lower sternal border, toward the apical region, less present in the axillary region. Abdomen is soft, nontender with no significant organomegaly. Extremities are without clubbing, cyanosis, caroline pitting edema. Peripheral pulses are diminished somewhat on the right more than left. Neuro: The patient is alert and oriented with normal mentation. Musculoskeletal: The patient walks with normal gait. Psychiatric: The patient with normal affect. DIAGNOSTIC STUDIES/LAB DATA: Chest x-ray report revealed post surgical changes. No evidence of acute findings. The lungs have clear. EKG dated time 2250 revealed sinus rhythm, heart rate 96, PA 12.16, QRS 0.09, QT 0.34, axis is plus 77 degrees. There are tiny Q-waves in II, III, aVF, which do not meet significance. There is poor R-wave progression in the early precordial leads. There is possible left atrial enlargement noted. Repeat EKG from today 06/01/17 time 820 shows no significant change. OVERALL ASSESSMENT: Jessi presents with clearly atypical sounding chest discomfort and that lasted close to 8 hours or more with negative cardiac enzymes and no EKG changes. She has marked hyponatremia and mild renal insufficiency, which is new compared to earlier this year that is being evaluated by the hospitalist service. For now, I would increase her metoprolol to 50 mg a day. Consider perhaps backing off on the lisinopril if her blood pressure becomes more of an issue and perhaps consider restarting amlodipine to help with the dilatation of collateral blood flow to the distal right coronary artery since the last stress test suggested this was the only area of significant abnormality. I would strongly recommend having an nonprofit fundraiser to see the patient in order to get the patient to undergo aspirin desensitization so that in the future if the LAD needs to be stented we can approach this or if we have definite evidence that the patient is significantly symptomatic from an ischemic standpoint to the low posterolateral wall perhaps total occlusion. Recanalization could be attempted if she fails medical management. I will follow her along with you. We will also get an echocardiogram in light of her systolic murmur that appears to be slightly louder than in the past and interestingly comparing it to Dr. Kristian Bauer's consult note from recent admission consult note dated 05/18/17 where he documented on exam that there were no heart murmurs appreciated. We will see if any change has occurred either to LV function or valve function. Thank you very much for asking us to see her in consultation. [id number]/[facility] #: [id number] NICOLE
--- NOTE | 2017-06-01 21:57 | PN ---
Subjective Date of Service: 06/01/17 Interval History: Patient complains of ongoing chest pressure radiating to her shoulder without letting up. No palliating or provoking factors except pain medications. Patient denies associated symptoms like N/V, SOB, Diaphoresis, or other anginal equivalent. Patient complains of intermittent headache, denies changes in vision , unilaterality, pounding or migrainous features. Patient denies Diarrhea, Constipation, abdominal pain, dysuria, or other pain. Family History: Unchanged from Admission Social History: Unchanged from Admission Past Medical History: Unchanged from Admission Objective Active Medications: Acetaminophen (Tylenol Tab*) 650 mg PO Q6H PRN PRN Reason: FEVER/PAIN Last Admin: 06/01/17 20:01 Dose: 650 mg Albuterol (Ventolin 2.5 Mg/3 Ml Neb.Tracey*) 2.5 mg INH Q4H PRN PRN Reason: SOB/WHEEZING Atorvastatin Calcium (Lipitor*) 40 mg PO 1700 [facility] Last Admin: 06/01/17 16:37 Dose: 40 mg Clopidogrel Bisulfate (Plavix Tab*) 75 mg PO DAILY [facility] Last Admin: 06/01/17 12:02 Dose: 75 mg Docusate Sodium (Colace Cap*) 200 mg PO BID [facility] Last Admin: 06/01/17 20:02 Dose: Not Given Duloxetine HCl (Cymbalta Cap*) 60 mg PO DAILY [facility] Last Admin: 06/01/17 12:02 Dose: 60 mg Gabapentin (Neurontin Cap(*)) 300 mg PO TID PRN PRN Reason: PAIN Heparin Sodium (Porcine) (Heparin Vial(*)) 5,000 units SUBCUT Q8HR [facility] Sodium Chloride (Ns 0.9% 1000 Ml*) 1,000 mls @ 100 mls/hr IV PER RATE [facility] Ipratropium [place] (Atrovent 0.5 Mg Neb.Tracey*) 0.5 mg INH QID PRN PRN Reason: SOB/WHEEZING Levothyroxine Sodium (Synthroid Tab*) 175 mcg PO 0600 [facility] Melatonin (Melatonin (Nf)) 3 mg PO BEDTIME PRN; Protocol PRN Reason: Sleep Metoprolol Succinate (Toprol Xl Tab*) 50 mg PO DAILY [facility] Mometasone Furoate (Asmanex 220 Mcg Mdi *) 2 puff INH 2100 [facility] Last Admin: 06/01/17 20:57 Dose: 2 puff Ondansetron HCl (Zofran Inj*) 4 mg IV Q6H PRN PRN Reason: NAUSEA Pantoprazole Sodium (Protonix Tab (Nf)) 40 mg PO BID [facility] Last Admin: 06/01/17 20:01 Dose: 40 mg Quetiapine Fumarate (Seroquel Tab*) 200 mg PO BEDTIME PRN PRN Reason: SLEEP Tramadol HCl (Ultram*) 50 mg PO Q6H PRN PRN Reason: PAIN - MODERATE TO SEVERE Last Admin: 06/01/17 14:50 Dose: 50 mg Warfarin Sodium (Coumadin Tab(*)) 5 mg PO DAILY@1700 [facility] PRN Reason: Protocol Last Admin: 06/01/17 16:37 Dose: 5 mg Vital Signs - 8 hr 06/01/17 06/01/17 06/01/17 14:17 14:50 16:28 Temperature 100.3 F Pulse Rate 117 85 Respiratory 18 18 12 Rate Blood Pressure 128/63 89/59 (mmHg) O2 Sat by Pulse 98 96 Oximetry 06/01/17 06/01/17 06/01/17 17:12 19:21 19:35 Temperature 98.1 F Pulse Rate 92 Respiratory 18 14 Rate Blood Pressure 83/55 90/50 (mmHg) O2 Sat by Pulse 95 Oximetry 06/01/17 21:00 Temperature Pulse Rate 79 Respiratory 10 Rate Blood Pressure (mmHg) O2 Sat by Pulse 96 Oximetry Oxygen Devices in Use Now: None Appearance: Patient is a 66yo female who appears older than stated age and is sitting in the bed in [facility]. Eyes: No Scleral Icterus, PERRLA Ears/Nose/Mouth/Throat: NL Teeth, Lips, Gums, Clear Oropharnyx, Mucous Membranes Moist Neck: NL Appearance and Movements; NL JVP, Trachea Midline, No Thyroid Enlargement, Masses Respiratory: Symmetrical Chest Expansion and Respiratory Effort, Clear to Auscultation, - - Diminished throughout. Cardiovascular: No Edema, - - Tachycardic, rate 100-120 regular. Grade 2/6 holosystolic murmur heard best at the apex present. Abdominal: NL Sounds; No Tenderness; No Distention, No Hepatosplenomegaly Lymphatic: No Cervical Adenopathy Extremities: No Edema, No Clubbing, Cyanosis Skin: No Rash or Ulcers, No Nodules or Sclerosis Neurological: Alert and Oriented x 3, NL Sensation, NL Muscle Strength and Tone , - - CN II-XII inact Result Diagrams: 06/01/17 03:36 06/01/17 06:08 Microbiology and Other Data: Microbiology 06/01/17 01:08 Influenza Types A,B Antigen ([place]) - Final Nasal Specimen received for Influenza A/B Molecular testing Assess/Plan/Problems-Billing Assessment: Patient is a 66yo female with repeated hospitalizations at this institution and a PMH significant for CAD, COPD, HTN, PFO, hypothyroidism, and resected lumg tumor who presents with chest pain which appears to not be cardiac in origin. - Patient Problems (1) Chest pain Current Visit: No Status: Acute Code(s): R07.9 - CHEST PAIN, UNSPECIFIED SNOMED Code(s): 57992852 Comment: Appreciate Cardiology input. Likely not cardiac in origin. Negative Troponins and no EKG changes. RCA 100% occluded with good colaterals, mLAD 50-60%, hyperdynamic LV fxn on echo. EF 85%. Stop lisinopril and Imdur, Increase Metoprolol. Will consider CCB when BP back within normal range. Plavix, no aspirin, will order brush cleaner consult for desensitization if available in the hospital. (2) COPD (chronic obstructive pulmonary disease) Current Visit: No Status: Acute Code(s): J44.9 - CHRONIC OBSTRUCTIVE PULMONARY DISEASE, UNSPECIFIED SNOMED Code(s): 59430189 Comment: Stable, no exacerbation. Continue inhalers (3) Tobacco abuse Current Visit: No Status: Acute Code(s): Z72.0 - TOBACCO USE SNOMED Code(s ): 567803008 Comment: Continued use, low motivation to quit. Will trauma counsellor and give nicotine replacement for cravings. (4) Hypertension Current Visit: No Status: Chronic Code(s): I10 - ESSENTIAL (PRIMARY) HYPERTENSION SNOMED Code(s): 81073581 Comment: Metoprolol increased to 50 XL Stop Lisinopril and imdue due to hyperdynamic LV. Will reintroduce amlodipine when able. (5) Hyponatremia Current Visit: No Status: Chronic Code(s): E87.1 - HYPO-OSMOLALITY AND HYPONATREMIA SNOMED Code(s): 24829580 Comment: Chronic, worse than normal, urine chemistries ordered to check for SIADH. Possibly provoked from pain, opiates or SSRI. NS currently for hypotension, will monitor. (6) Hypothyroidism Current Visit: No Status: Chronic Code(s): E03.9 - HYPOTHYROIDISM, UNSPECIFIED SNOMED Code(s): 57191385 Comment: TSH pending, possible caus eof hyperdynamic LV. Continue levothyroxine. (7) Full code status Current Visit: No Status: Acute Code(s): Z78.9 - OTHER SPECIFIED HEALTH STATUS SNOMED Code(s): 093781222 Comment: - Full code (8) DVT prophylaxis Current Visit: No Status: Acute Code(s): EIU2476 - SNOMED Code(s): 255710721 Comment: hsq Coumadin subtherapeutic, will monitor. Status and Disposition: Patient is admitted observation
[2017-06-02] MEDS: traMADol TAB* 50 MG PO PRN ×2 (00:29→07:18)
[2017-06-02 05:42] LABS: ABS Basophils 0.1 10^3/ul (0-0.2); ABS Eosinophils 0.1 10^3/ul (0-0.6); ABS Lymphocytes 1.4 10^3/ul (1.0-4.8); ABS Neutrophils 4.5 10^3/ul (1.5-7.7); ABS Nucleated RBC 0 10^3/ul; Hematocrit 24 % (35-47); Hemoglobin 8.2 g/dl (12.0-16.0); Lymphocyte % 20.1 % (25-47); Mean Corpuscular HGB Conc 34 g/dl (31-36); Mean Corpuscular Hemoglobin 32 pg (27-31); Mean Corpuscular Volume 94 fL (80-97); Mean Platelet Volume 8 um3 (7.4-10.4); Nucleated Red Blood Cells % 0.1; Platelet Count 358 10^3/ul (150-450); Red Cell Distribution Width 18 % (10.5-15); White Blood Count 7.1 10^3/ul (3.5-10.8)
[2017-06-02 05:47] LABS: INR 1.32 (0.77-1.02)
[2017-06-02] MEDS ORDERED: Heparin VIAL(*) 5000 UNITS/ML VIAL (FIVE THOUSAND) SUBCUT SCH (06:00)
[2017-06-02] MEDS ORDERED: Levothyroxine TAB* 175 MCG TAB PO SCH (06:00)
[2017-06-02 08:22] VITALS: BP 119/66
[2017-06-02] MEDS: Clopidogrel TAB* 75 MG PO SCH (08:35)
[2017-06-02] MEDS: DULoxetine DR CAP* 30 MG CAP.DR PO SCH (08:36)
[2017-06-02] MEDS: CMC Pantoprazole TAB (NF) 40 MG TAB PO SCH (08:36)
[2017-06-02] MEDS: Docusate CAP* 100 MG PO SCH (08:38)
[2017-06-02] MEDS ORDERED: Metoprolol Succinate XL TAB* 25 MG PO SCH ×2 (09:00)
[2017-06-02] MEDS ORDERED: Isosorbide Mononitrate ER TAB* 60 MG PO SCH ×2 (09:00→11:24)
[2017-06-02] MEDS ORDERED: Clopidogrel TAB* 75 MG PO SCH (09:00)
[2017-06-02] MEDS ORDERED: Lisinopril TAB* 5 MG PO SCH (09:00)
[2017-06-02] MEDS ORDERED: Warfarin TAB(*) 2 MG PO SCH (17:00)
[2017-06-02] MEDS ORDERED: Warfarin TAB(*) 5 MG PO SCH (17:00)
[2017-06-02] MEDS ORDERED: Atorvastatin* 20 MG TAB PO SCH (17:00)
[2017-06-03] MEDS ORDERED: Diltiazem CD CAP* 120 MG PO SCH (09:00)
[2017-06-03] MEDS ORDERED: Metoprolol Succinate XL TAB* 50 MG PO SCH (09:00)
--- NOTE | 2017-06-03 15:12 | DS ---
CONTINUATION ADDENDUM NOW INCLUDED ON THIS REPORT CC: Guerrero Gtz NP * DISCHARGE SUMMARY: DATE OF ADMISSION: 06/01/17 DATE OF DISCHARGE: 06/02/17 PRIMARY CARE PROVIDER: Guerrero Gtz NP MY ATTENDING WHILE IN THE HOSPITAL: Dr. Sina Munguia * (DICTATED BY ALEJANDRO FUNES) CONSULTING PROVIDER: Dr. Alphonso Rogers. PRIMARY DISCHARGE DIAGNOSES: 1. Chest pain. 2. Hyponatremia. 3. Decreased cardiac output. SECONDARY DISCHARGE DIAGNOSES: 1. Previous carcinoma of the lungs, status post lobectomy and chemo treatment. 2. Chronic obstructive pulmonary disease. 3. Patent foramen ovale. 4. Hypertension. 5. Hyperlipidemia. 6. Hypothyroidism. 7. Low back pain. 8. History of opioid and benzodiazepine abuse. 9. Hiatal hernia. STUDIES DONE WHILE IN THE HOSPITAL: Electrocardiogram from 05/31/17 shows normal sinus rhythm, early repolarization in V2, V3, and V4, heart rate 96, no other abnormalities, normal axis. EKG from 06/01/17 shows no significant changes. Chest x-ray from 05/31/17 shows postsurgical changes and no acute findings. Transthoracic echocardiogram from 06/01/17 shows mild concentric left ventricular hypertrophy, basal septal hypertrophy, and systolic anterior motion. Left ventricle appears hyperdynamic. Estimated ejection fraction is greater than 55%. [id number] pulmonic regurgitation. Medications: Levothyroxine TAB* [Synthroid 25 MCG TAB*] 175 mcg PO DAILY Albuterol 2.5MG/3ML (0.083%)* [Ventolin 2.5 MG/3 ML NEB.ZACHARY*] 2.5 mg INH Q4H PRN Albuterol HFA INHALER* [Ventolin HFA Inhaler*] 2 puff INH Q4H PRN Ipratropium 0.5MG/2.5ML NEB* [Atrovent 0.5 MG NEB.ZACHARY*] 0.5 mg INH QID PRN DULoxetine CAP* [Cymbalta CAP*] 60 mg PO DAILY Fluticasone HFA 220 mcg(NF) [Flovent Hfa 220 Mcg(NF)] 1 puff INH BID QUEtiapine TAB* [Seroquel TAB*] 200 - 300 mg PO BEDTIME PRN Atorvastatin* [Lipitor 40 MG*] 40 mg PO 1700 #30 tab Clopidogrel TAB* [Plavix TAB*] 75 mg PO DAILY #30 tab Gabapentin CAP(*) [Neurontin 300 CAP(*)] 300 mg PO TID PRN Nabumetone TAB* [Relafen TAB*] 750 mg PO TID PRN Acetaminophen TAB* [Tylenol TAB*] 650 mg PO Q6H PRN tab Diltiazem CD CAP* [Cardizem CD CAP*] 120 mg PO DAILY #30 cap.cd Enoxaparin(*) [Lovenox(*)] 40 mg SUBCUT Q12HR #28 syringe LORazepam TAB(*) [Ativan 0.5 MG TAB (*)] 0.5 mg PO Q8H PRN #12 tab MDD 3 tabs Metoprolol Succinate XL TAB* [Toprol XL TAB*] 50 mg PO DAILY #30 tab.xl Pantoprazole TAB (NF) [Protonix TAB (NF)] 40 mg PO BID #60 tab Warfarin 5mg PO DAILY Warfarin 2mg PO DAILY Hospital Course: Patient is a 66yo female with a PMH significant for the above who resented to the emergency room on 05/31/2017 with constant and unremitting chest pain without palliating and provoking factors and associated shortness of breath. Patient was admitted to rule out myocardial infarction. Chest pain continuing on 06/01/17. The patient had no EKG changes. No palliating or provoking factors. This is a constant chest pain. No shortness of breath, diaphoresis, or associated anginal equivalents. The patient's chest pain continued despite the reintroduction of her nitro. Cardiology was consulted, who believe this is not cardiac in nature. The patient had a recent cardiac catheterization, which showed complete stenosis of the RCA distally and 50% stenosis of the LAD. This is not consistent with that. The patient had good collateral blood flow to all areas of her heart and no EKG changes. The patient was noted to have an increased murmur on exam. A transthoracic echocardiogram was ordered. In light of the above, showing hyperdynamic left ventricle, this was believed to be due to patient's afterload and preload reduction from lisinopril and Imdur. These medications were stopped per Cardiology and her antihypertensive regimen was switched to increased metoprolol succinate to 50 mg p.o. daily, and Cardizem 120 mg CD daily. The patient was initially hypotensive when her home blood pressure regimen was reintroduced; however, patient became normotensive on her metoprolol alone on . The patient had no other complaints while in the hospital except for anxiety, which she states was the main reason behind her coming to the hospital , because she was scared and did not know very well how to cope with this with her chest pain. The patient did not sleep well from the night of 06/01/17 and 06/02/17 and was amendable to discharge. The patient was recently started on warfarin and her INR was approximately 1.3 throughout her hospitalization and it did not increase despite her warfarin being increased to 7 mg while in the hospital. Patient due to high risk of blood clot was started on Lovenox for bridging. Patient was also prescribed Ativan a small supply of 12 of 0.5 mg tablets that she was instructed to use before coming into the hospital, if she felt significantly anxious. The patient had no other complaints while in the hospital. The patient had a hyponatremia at 1:22 in the hospital. Random urine sodium was sent, which was less than 18 this could be attributable to SIADH with pain and/or her many medications. Patient generally has a low sodium level while in the hospital, the lowest being 116, which the patient had on multiple occasions. PHYSICAL EXAMINATION: At the day of discharge, general: The patient is a 66- year- old female who appears stated age and is sitting comfortably in the bed, in no acute distress. Vital signs at the time of discharge, temperature 98, pulse rate 80, respiratory rate 16, oxygen saturation 97% on room air, blood pressure 116/66. HEENT: Head normocephalic, atraumatic. Sclerae anicteric. No conjunctival injection. Nasal mucosa is moist. Oral mucosa is moist. No pharyngeal erythema. Neck: Supple, nontender. No lymphadenopathy. No carotid bruits auscultated. Cardiac: Regular rate and rhythm. Grade 2/6 holosystolic murmur, heard best at the apex, decreased from previous exam. Pulses are 2+ in the bilateral dorsalis pedis, posterior tibialis and radial areas. No edema noted in the bilateral lower extremities. Respiratory: Clear to auscultation bilaterally. No wheezes, rales, or rhonchi. Abdomen: Soft, nontender, nondistended. No hepatosplenomegaly. Bowel sounds present in all 4 quadrants. No abdominal bruits auscultated. Genitourinary: No suprapubic tenderness or CVA tenderness. Skin: Clean, dry, intact. No rash. Neuro: Cranial nerves II through XII grossly intact. 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 Psychiatric: Pleasant and cooperative. LABORATORY DATA: From hospitalization, from 05/29/2017 white blood cell count 7.1, hemoglobin 8.2, platelet count 358, INR 1.32. Sodium 128, potassium 3.6, carbon dioxide 21, chloride 101, anion gap 6, BUN 16, creatinine 0.98, glucose 94, calcium 8.2, TSH 3.08, free T4 1.10. Urinalysis from hospitalization shows low urine specific gravity, 1+ protein, trace ketones, trace epithelial cells present, no urine bacteria. Other pertinent lab values CRP 7.05, procalcitonin 0.1, creatinine on admission 1.26. Venous blood gasses, pH 7.33. Hemoglobin on admission 10.3. DISCHARGE PLAN: Patient will be discharged to home to follow up with her primary care provider Guerrero Gtz NP, on 06/03/2017. The patient will be bridged as a result of subtherapeutic INR with Lovenox, which patient will inject herself. Patient is comfortable with this. The patient should take her antihypertensive regimen as above to maximize secondary prevention for heart attack and manage her hyperdynamic left ventricle. The patient should be increased to metoprolol succinate 50 mg p.o. b.i.d. if her blood pressure will tolerate it. The patient should have her INR checked frequently until it is therapeutic and the Lovenox can be discontinued. The patient had no other signs of infection. Her abnormality while on hospital, patient's sodium was essentially at baseline and improved with fluid administration. The patient should take Ativan sparingly based on her history of benzodiazepine abuse. The patient should establish with psychiatrist if possible to help develop coping mechanisms to help her stay out of the hospital. Patient should follow with visiting nurse services as arranged. Patient should take all her other medications as prescribed. Patient should engage in activity as tolerated. Patient should have healthy diet without caffeine. TIME SPENT: Approximately 60 minutes was spent on this discharge, 30 of which was spent [id number] with the patient obtaining history and physical and discussing treatment plan. ALEJANDRO FUNES [id number] #: [id number]/[facility] #: [id number] Dictated Date/Time: 06/02/17 2144 Transcribed Date/Time 06/03/17 0758 NICOLE
--- NOTE | 2017-06-03 15:21 | DS ---
ADDENDUM: * DISCHARGE SUMMARY: Chest pain continuing on 06/01/17. The patient had no EKG changes. No palliating or provoking factors. This is a constant chest pain. No shortness of breath, diaphoresis, or associated anginal equivalents. The patient's chest pain continued despite the reintroduction of her nitro. Cardiology was consulted, who believe this is not cardiac in nature. The patient had a recent cardiac catheterization, which showed complete stenosis of the RCA distally and 50% stenosis of the LAD. This is not consistent with that. The patient had good collateral blood flow to all areas of her heart and no EKG changes. The patient was noted to have an increased murmur on exam. A transthoracic echocardiogram was ordered. In light of the above, showing hyperdynamic left ventricle, this was believed to be due to patient's afterload and preload reduction from lisinopril and Imdur. These medications were stopped per Cardiology and her antihypertensive regimen was switched to increased metoprolol succinate to 50 mg p.o. daily, and Cardizem 120 mg CD daily. The patient was initially hypotensive when her home blood pressure regimen was reintroduced; however, patient became normotensive on her metoprolol alone on 06/01/17. The patient had no other complaints while in the hospital except for anxiety, which she states was the main reason behind her coming to the hospital, because she was scared and did not know very well how to cope with this with her chest pain. The patient did not sleep well from the night of 06/01/17 and 06/02/17 and was amendable to discharge. The patient was recently started on warfarin and her INR was approximately 1.3 throughout her hospitalization and it did not increase despite her warfarin being increased to 7 mg while in the hospital. Patient due to high risk of blood clot was started on Lovenox for bridging. Patient was also prescribed Ativan a small supply of 12 of 0.5 mg tablets that she was instructed to use before coming into the hospital, if she felt significantly anxious. The patient had no other complaints while in the hospital. The patient had a hyponatremia at 1: 22 in the hospital. Random urine sodium was sent, which was less than 18 trivial to SIADH with pain and/or her many medications. Patient generally has a low sodium level while in the hospital, the lowest being 116, which the patient had on multiple occasions. PHYSICAL EXAMINATION: At the day of discharge, general: The patient is a 66- year- old female who appears stated age and is sitting comfortably in the bed, in no acute distress. Vital signs at the time of discharge, temperature 98, pulse rate 80, respiratory rate 16, oxygen saturation 97% on room air, blood pressure 116/66. HEENT: Head normocephalic, atraumatic. Sclerae anicteric. No conjunctival injection. Nasal mucosa is moist. Oral mucosa is moist. No pharyngeal erythema. Neck: Supple, nontender. No lymphadenopathy. No carotid bruits auscultated. Cardiac: Regular rate and rhythm. Grade 2/6 holosystolic murmur, heard best at the apex, decreased from previous exam. Pulses are 2+ in the bilateral dorsalis pedis, posterior tibialis and radial areas. No edema noted in the bilateral lower extremities. Respiratory: Clear to auscultation bilaterally. No wheezes, rales, or rhonchi. Abdomen: Soft, nontender, nondistended. No hepatosplenomegaly. Bowel sounds present in all 4 quadrants. No abdominal bruits auscultated. Genitourinary: No suprapubic tenderness or CVA tenderness. Skin: Clean, dry, intact. No rash. Neuro: Cranial nerves II through XII grossly intact. 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 Psychiatric: Pleasant and cooperative. LABORATORY DATA: From hospitalization, from 05/29/2017 white blood cell count 7.1, hemoglobin 8.2, platelet count 358, INR 1.32. Sodium 128, potassium 3.6, carbon dioxide 21, chloride 101, anion gap 6, BUN 16, creatinine 0.98, glucose 94, calcium 8.2, TSH 3.08, free T4 1.10. Urinalysis from hospitalization shows low urine specific gravity, 1+ protein, trace ketones, trace epithelial cells present, no urine bacteria. Other pertinent lab values CRP 7.05, procalcitonin 0.1, creatinine on admission 1.26. Venous blood gasses, pH 7.33. Hemoglobin on admission 10.3. DISCHARGE PLAN: Patient will be discharged to home to follow up with her primary care provider Guerrero Gtz NP, on 06/03/2017. The patient will be bridged as a result of subtherapeutic INR with Lovenox, which patient will inject herself. Patient is comfortable with this. The patient should take her antihypertensive regimen as above to maximize secondary prevention for heart attack and manage her hyperdynamic left ventricle. The patient should be increased to metoprolol succinate 50 mg p.o. b.i.d. if her blood pressure will tolerate it. The patient should have her INR checked frequently until it is therapeutic and the Lovenox can be discontinued. The patient had no other signs of infection. Her abnormality while on hospital, patient's sodium was essentially at baseline and improved with fluid administration. The patient should take Ativan sparingly based on her history of benzodiazepine abuse. The patient should establish with psychiatrist if possible to help develop coping mechanisms to help her stay out of the hospital. Patient should follow with visiting nurse services as arranged. Patient should take all her other medications as prescribed. Patient should engage in activity as tolerated. Patient should have healthy diet without caffeine. TIME SPENT: Approximately 60 minutes was spent on this discharge, 30 of which was spent [id number] with the patient obtaining history and physical and discussing treatment plan. ALEJANDRO FUNES [id number]/[facility] #: [id number] NICOLE
== END 2017-06-02 11:45 | disposition home or self-care (01) ==
LOC: ED 22:09 → MEDTELE 06-01 00:22
PROVIDERS: ADMIT Hospitalist; ATTEND Internal Medicine
DX: R07.9 Chest pain, unspecified (principal); E87.1 Hypo-osmolality and hyponatremia; Z85.110 Personal history of malignant carcinoid tumor of bronchus and lung; Q21.1 Atrial septal defect; I10 Essential (primary) hypertension; E78.5 Hyperlipidemia, unspecified; E03.9 Hypothyroidism, unspecified; M54.5 Low back pain; K44.9 Diaphragmatic hernia without obstruction or gangrene; Z79.899 Other long term (current) drug therapy; I51.7 Cardiomegaly; Z88.6 Allergy status to analgesic agent; F17.210 Nicotine dependence, cigarettes, uncomplicated; J44.9 Chronic obstructive pulmonary disease, unspecified; G21.9 Secondary parkinsonism, unspecified; R94.31 Abnormal electrocardiogram [ECG] [EKG]
CPT/HCPCS: 36415; 71045; 80048; 80053; 81003; 81015; 82550; 82565; 82803; 83605; 83880; 84145; 84300; 84439; 84443; 84484; 84520; 85025; 85610; 85730; 86140; 87040; 87502; 93005; 93306; 94640; 94760; 96361; 96374; 96375; 96376; 99285; 99406; A9270-GY; G0378; J1644; J2270; J2405

== ENCOUNTER 2017-06-03 21:53 | Observation (INO) | payer MEDICARE ==
[2017-06-03] MEDS ORDERED: NS 0.9% 1000 ML* 1,000 ML IV ONE (23:17)
[2017-06-03] MEDS ORDERED: Ondansetron INJ* 2 MG/ML VIAL IV ONE (23:18)
[2017-06-03] MEDS ORDERED: Meclizine TAB* 12.5 MG PO ONE (23:18)
[2017-06-03 23:56] LABS: ABS Basophils 0.1 10^3/ul (0-0.2); ABS Eosinophils 0 10^3/ul (0-0.6); ABS Lymphocytes 0.6 10^3/ul (1.0-4.8); ABS Monocytes 0.9 10^3/ul (0-0.8); ABS Neutrophils 5.5 10^3/ul (1.5-7.7); ABS Nucleated RBC 0 10^3/ul; Eosinophil % 0.6 % (0-6); Hematocrit 26 % (35-47); Hemoglobin 8.6 g/dl (12.0-16.0); Lymphocyte % 7.9 % (25-47); Mean Corpuscular HGB Conc 33 g/dl (31-36); Mean Corpuscular Hemoglobin 31 pg (27-31); Mean Corpuscular Volume 93 fL (80-97); Mean Platelet Volume 8 um3 (7.4-10.4); Nucleated Red Blood Cells % 0; Platelet Count 313 10^3/ul (150-450); Red Blood Count 2.77 10^6/ul (4.0-5.4); Red Cell Distribution Width 18 % (10.5-15)
[2017-06-04 01:05] LABS: Urine Appearance Clear; Urine Blood Negative (Negative); Urine Color Yellow; Urine Ketones Trace (Negative); Urine Protein 2+(100 mg/dL) (Negative); Urine Specific Gravity 1.008 (1.010-1.030); Urine Urobilinogen Negative (Negative)
[2017-06-04] MEDS ORDERED: Butalb/Acetamin/Caff TAB* 1 TAB PO ONE (01:25)
[2017-06-04] MEDS ORDERED: traMADol TAB* 50 MG PO ONE (01:26)
[2017-06-04] MEDS ORDERED: Morphine INJ* 4 MG/ML 1 ML CARPUJECT IV ONE (02:18)
[2017-06-04] MEDS ORDERED: Metoclopramide IV* 5 MG/ML 2 ML VIAL IV SLOW PU ONE (02:19)
[2017-06-04] MEDS ORDERED: NS 0.9% 1000 ML* 1,000 ML IV ONE (02:19)
[2017-06-04] MEDS ORDERED: Acetaminophen TAB* 325 MG PO ONE (02:52)
[2017-06-04] MEDS ORDERED: Morphine INJ* 2 MG/ML 1 ML SYRINGE (TWO MG - NEW SYRINGE VERSION) ONE (03:03)
--- NOTE | 2017-06-04 04:01 | ED ---
Hammad Winkler Angela, scribed for Carolina Weber MD on 06/03/17 at 2328 . Dizziness - HPI Summary HPI Summary: This pt is a 68 y/o female presenting to [facility] via EMS c/o dizziness and nausea. Pt describes her dizziness as room spinning and feeling of almost passing out. She denies vomiting. Pt had a stroke and has neurological deficit at baseline of left arm weakness (from the mid forearm down). She was discharged recently from [facility] yesterday for chest pain. Pt lives alone. - History Of Current Complaint Chief Complaint: EDGeneral Stated Complaint: GENERAL ILLNESS Time Seen by Provider: 06/03/17 22:52 Hx Obtained From: Patient Onset/Duration: Still Present Timing: Hours Severity Currently: Moderate Character: Room Spinning, Lightheaded Aggravating Factor(s): Position Change Alleviating Factor(s): Lying Down Associated Signs And Symptoms: Positive: Other: - nausea. Negative: Fever - Allergies/Home Medications Allergies/Adverse Reactions: Allergies Allergy/AdvReac Type Severity Reaction Status Date / Time Aspirin Allergy Severe Anaphylatic Verified 06/03/17 22:03 Shock Latex AdvReac Mild Rash Verified 06/03/17 22:03 PMH/Surg Hx/FS Hx/Imm Hx Endocrine/Hematology History: Reports: Hx Thyroid Disease - hypothyroid, Other Endocrine/Hematological Disorders - Benign goiter Denies: Hx Bone Marrow Disease, Hx Diabetes, Hx Systemic Lupus Erythematosus Cardiovascular History: Reports: Hx Angina - pressure, not pain, Hx Hypercholesterolemia - was high before cancer,now off meds., Hx Hypertension, Hx Myocardial Infarction - NSTEMI, Other Cardiovascular Problems/Disorders - patent foramen ovale; Murmur, Denies: Hx Congestive Heart Failure, Hx Coronary Artery Disease, Hx Pacemaker /ICD, Hx Valvular Heart Disease Respiratory History: Reports: Hx Asthma, Hx Chronic Obstructive Pulmonary Disease (COPD), Hx Lung Cancer - Left upper lobectomy, Hx Pneumonia, Other Respiratory Problems/Disorders - lung cancer, LOBECTOMY 09/11/11 GI History: Reports: Hx Gastroesophageal Reflux Disease, Hx Hiatal Hernia, Other GI Disorders - hiatal hernia, colitis. 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, Hx Osteoporosis - Possible, Hx Scoliosis, Other Musculoskeletal History - scoliosis Denies: Hx Rheumatoid Arthritis Sensory History: Reports: Hx Cataracts - PATIENT STATES BEGINING OF CATARACTS LEFT EYE, Hx Contacts or Glasses, Hx Hearing Problem - right Denies: Hx Hearing Aid Opthamlomology History: Reports: Hx Cataracts - PATIENT STATES BEGINING OF CATARACTS LEFT EYE, Hx Contacts or Glasses Neurological History: Reports: Hx CVA - in 05/16, Hx Headaches - frequent h/a's , Hx Migraine - Rare post menopause Psychiatric History: Reports: Hx Anxiety, Hx Depression, Hx Community Mental Health Tx, Hx Substance Abuse - opiods Denies: Hx Panic Disorder, Hx Inpatient Treatment - Cancer History Cancer Type, Location and Year: LUNG CA, DIAGNOSED July 2012 Hx Chemotherapy: Yes Hx Radiation Therapy: No Hx Palliative Cancer Treatment: No - Surgical History Surgery Procedure, Year, and Place: LEFT UPPER LUNG REMOVED 09/2012, HYSTERECTOMY , tonsillectomy Hx Anesthesia Reactions: No - Immunization History Date of Tetanus Vaccine: utd Date of Influenza Vaccine: utd Infectious Disease History: No Infectious Disease History: Denies: Hx of Known/Suspected MRSA, Traveled Outside the [place] in Last 30 Days - Family History Known Family History: Positive: Cardiac Disease - Sudden cardiac arrest (father) , Other - son -- glioblastoma. UC mother. Fhx of colitis. - Social History Alcohol Use: None Hx Substance Use: No Substance Use Type: Reports: Other Substance Use Comment - Amount & Last Used: percocet Hx Tobacco Use: Yes Smoking Status (MU): Heavy Every Day Tobacco Smoker Type: Cigarettes Amount Used/How Often: 1/2 pack a day Length of Time of Smoking/Using Tobacco: 47 years Have You Smoked in the Last Year: Yes Review of Systems Negative: Fever, Chills ENT: Negative Cardiovascular: Negative Respiratory: Negative Positive: Nausea. Negative: Vomiting Genitourinary: Negative Musculoskeletal: Negative Skin: Negative Neurological: Other - dizziness All Other Systems Reviewed And Are Negative: Yes Physical Exam - Summary Physical Exam Summary: VITAL SIGNS: Reviewed. GENERAL: Patient is a well-developed and nourished female who is lying comfortable in the stretcher. Patient is not in any acute respiratory distress. HEAD AND FACE: No signs of trauma. No ecchymosis, hematomas or skull depressions. No sinus tenderness. EYES: PERRLA, EOMI x 2, No injected conjunctiva, no nystagmus. EARS: Hearing grossly intact. Ear canals and tympanic membranes are within normal limits. MOUTH: Oropharynx within normal limits. NECK: Supple, trachea is midline, no adenopathy, no JVD, no carotid bruit, no c- spine tenderness, neck with full ROM. CHEST: Symmetric, no tenderness at palpation LUNGS: Clear to auscultation bilaterally. No wheezing or crackles. CVS: Regular rate and rhythm, S1 and S2 present, no gallops appreciated. Systolic murmur on the apex. ABDOMEN: Soft, non-tender. No signs of distention. No rebound no guarding, and no masses palpated. Bowel sounds are normal. EXTREMITIES: FROM in all major joints, no edema, no cyanosis or clubbing. NEURO: Alert and oriented x 3. No acute neurological deficits. Speech is normal and follows commands. SKIN: Dry and warm Triage Information Reviewed: Yes Vital Signs On Initial Exam: Initial Vitals Temp Pulse Resp BP Pulse Ox 98.3 F 104 16 107/61 97 06/03/17 21:55 06/03/17 21:55 06/03/17 21:55 06/03/17 21:55 06/03/17 21:55 Vital Signs Reviewed: Yes - [place] Coma Scale Coma Scale Total: 15 Diagnostics - Vital Signs Vital Signs Temp Pulse Resp BP Pulse Ox 06/03/17 21:55 98.3 F 104 16 107/61 97 - Laboratory Result Diagrams: 06/03/17 23:45 06/03/17 23:45 Lab Statement: Any lab studies that have been ordered have been reviewed, and results considered in the medical decision making process. - Radiology Chest XR Xray Interpretation: No Acute Changes - No acute process. Radiology Interpretation Completed By: ED Physician Re-Evaluation - Re-Evaluation First Eval Re-Evaluation Time: 01:15 Comment: I discussed lab and chest XR results with the pt. Dizzy Course/Dx - Course Course Of Treatment: This pt is a 68 y/o female presenting to [facility] via EMS c/o dizziness and nausea. Pt describes her dizziness as room spinning and feeling of almost passing out. She denies vomiting. In the ED course the pt was given IV fluids, meclizine, and Zofran. Chest XR is negative. Lab results are stable from previous, no change. Pt developed a fever of 102 F while in the ED and has increasing weakness. I discussed pt care with Dr. Frankenberg, hospitalist , who has agreed to admit the pt. - Diagnoses Provider Diagnoses: Weakness, Viral syndrome - Provider Notifications Discussed Care Of Patient With: Timothy Melton Time Discussed With Above Provider: 03:57 Instructed by Provider To: Other - I discussed pt care with Dr. Melton, hospitalist, who has agreed to admit the pt. Discharge - Discharge Plan Condition: Stable Disposition: ADMITTED TO [facility] Referrals: Guerrero Gtz, [employer] CROSS EXECUTIVE DIRECTOR [Primary Care Provider] - The documentation as recorded by the Hammad crawford Angela accurately reflects the service I personally performed and the decisions made by me, Carolina Weber MD.
[2017-06-04] MEDS ORDERED: Acetaminophen TAB* 325 MG PO PRN ×2 (07:32→12:50)
[2017-06-04] MEDS ORDERED: Albuterol 2.5 MG/3 ML NEB.SOL* (0.083%) INH PRN ×2 (07:32→12:50)
[2017-06-04] MEDS ORDERED: Nicotine Inhaler* 10 MG AMP INH PRN (07:32)
[2017-06-04] MEDS ORDERED: Melatonin (NF) 3 MG TAB PO PRN (07:32)
[2017-06-04] MEDS ORDERED: Ondansetron INJ* 2 MG/ML VIAL IV PRN (07:32)
[2017-06-04] MEDS ORDERED: Mouth Piece, Nicotine* 1 EACH CARTRIDGE INH PRN (07:32)
--- NOTE | 2017-06-04 07:35 | HP ---
H&P (Free Text) History and Physical: PCP: Salvador Gzt NP Date/Time of Evaluation: 06/04/2017 0715 CC: malaise HPI: Mrs Glover is a 66YO female HX adenoCA s/p L upper lobectomy, CAD/NSTEMI( 04/2017)/cath with 100% RCA & 60-65% mid-LAD lesion (no stent), & COPD continuing to smoke who was admitted 05/18/2017 & 06/01/2017 for chest pain. She returns today reporting 2 days of progressive malaise which she is unable to further characterize. She endorses spinning dizziness, fatigue, & nausea, but denies chest pain, change in her chronic cough or chronic SOB, F/C, sweats, change in bowel/bladder, headache, or other issues. Her lab values are essentially baseline. Vitals are notable for tachycardia mid-90s to mid-110s, RR mid-10s to mid-20s, & saO2 in the mid-90s. ED was planning on discharging her but she then spiked a fever to 102F prompting request for admission. CXR is negative. UA is negative. Rapid influenza is negative. PMedHx adenoCA L lung s/p upper lobectomy & chemoTX CAD/NSTEMI (04/2017 100% RCA & 60-65% mid-LAD lesion [no stent]) COPD PFO HTN HLD hypothyroidism chronic LBP HX opioid & benzodiazepine abuse hiatal hernia tobacco use disorder Ambulatory Orders Nursing to reconcile. Levothyroxine TAB* [Synthroid 25 MCG TAB*] 175 mcg PO DAILY 02/09/16 Albuterol 2.5MG/3ML (0.083%)* [Ventolin 2.5 MG/3 ML NEB.ZACHARY*] 2.5 mg INH Q4H PRN 05/03/16 Albuterol HFA INHALER* [Ventolin HFA Inhaler*] 2 puff INH Q4H PRN 05/03/16 Ipratropium 0.5MG/2.5ML NEB* [Atrovent 0.5 MG NEB.ZACHARY*] 0.5 mg INH QID PRN 05/[address] CAP* [Cymbalta CAP*] 60 mg PO DAILY 02/07/17 Fluticasone HFA 220 mcg(NF) [Flovent Hfa 220 Mcg(NF)] 1 puff INH BID 02/07/17 QUEtiapine TAB* [Seroquel TAB*] 200 - 300 mg PO BEDTIME PRN 02/07/17 Atorvastatin* [Lipitor 40 MG*] 40 mg PO 1700 #30 tab 05/07/17 Clopidogrel TAB* [Plavix TAB*] 75 mg PO DAILY #30 tab 05/07/17 Gabapentin CAP(*) [Neurontin 300 CAP(*)] 300 mg PO TID PRN 05/17/17 Nabumetone TAB* [Relafen TAB*] 750 mg PO TID PRN 05/17/17 Acetaminophen TAB* [Tylenol TAB*] 650 mg PO Q6H PRN tab 06/02/17 Diltiazem CD CAP* [Cardizem CD CAP*] 120 mg PO DAILY #30 cap.cd 06/02/17 Enoxaparin(*) [Lovenox(*)] 40 mg SUBCUT Q12HR #28 syringe 06/02/17 LORazepam TAB(*) [Ativan 0.5 MG TAB (*)] 0.5 mg PO Q8H PRN #12 tab MDD 3 tabs Metoprolol Succinate XL TAB* [Toprol XL TAB*] 50 mg PO DAILY #30 tab.xl Pantoprazole TAB (NF) [Protonix TAB (NF)] 40 mg PO BID #60 tab 06/02/17 Allergies Aspirin Allergy (Severe, Verified 06/03/17 22:03) Anaphylatic Shock Latex Adverse Reaction (Mild, Verified 06/03/17 22:03) Rash swelling at contact area PSurgHx L upper lobectomy for adenoCA tonsillectomy hysterectomy SocHx: 1/2 - 3/4 PPD cigarettes w/ ~25PYHX, denies alcohol, HX opioid & benzodiazepine abuse currently abstinent; full code status FamHx: Mother: ulcerative colitis; Father: passed of [place] in his 50s; 1 child passed of suicide and another passed of complications of alcoholism ROS: as above, otherwise reviewed and all were negative Constitutional: NAD, normally developed, frail, mildly ill-appearing white female vitals: Vital Signs Temp 38.9 C 06/04/17 03:00 Pulse 95 06/04/17 06:30 Resp 25 06/04/17 05:30 BP 118/84 06/04/17 06:30 Pulse Ox 94 06/04/17 06:30 Intake & Output 06/03/17 06/03/17 06/04/17 11:59 23:59 11:59 Intake Total 1000 Balance 1000 Weight 45.359 kg Intake: IV Fluids 1000 HEENM: atraumatic; sclera/conjunctiva: non-icteric/clear; hearing: clinically intact; oropharynx: clear, mucosa dry Neck: soft tissue: non-tender; thyroid: no mass Pulmonary: clear to auscultation B, fair aeration, no accessory muscle use CV: RR/RR, normal S1S2, no carotid bruit, no jugular venous distention, 2+ B DP/ PT, no edema Abdominal: soft, non-distended, non-tender, no rebound/guarding/rigidity, normoactive bowel sounds, no hepatosplenomegaly or masses, no costovertebral angle tenderness Musculoskeletal: general: grossly intact; gait: stable Integumental: normal appearance and texture Psychiatric orientation: AA&O to PPS affect: calm mood: cooperative eye contact: good content: reliable responses: timely insight: poor Testing: Lab Results 06/03/17 06/03/17 06/03/17 Range/Units 23:45 23:45 23:45 WBC 7.0 (3.5-10.8) 10^3/ul RBC 2.77 L (4.0-5.4) 10^6/ul Hgb 8.6 L (12.0-16.0) g/dl Hct 26 L (35-47) % MCV 93 (80-97) fL MCH 31 (27-31) pg MCHC 33 (31-36) g/dl RDW 18 H (10.5-15) % Plt Count 313 (150-450) 10^3/ul MPV 8 (7.4-10.4) um3 Neut % (Auto) 78.1 (38-83) % Lymph % (Auto) 7.9 L (25-47) % [place] % (Auto) 12.6 H (1-9) % Eos % (Auto) 0.6 (0-6) % Baso % (Auto) 0.8 (0-2) % Absolute Neuts (auto) 5.5 (1.5-7.7) 10^3/ul Absolute Lymphs (auto) 0.6 L (1.0-4.8) 10^3/ul Absolute Monos (auto) 0.9 H (0-0.8) 10^3/ul Absolute Eos (auto) 0 (0-0.6) 10^3/ul Absolute Basos (auto) 0.1 (0-0.2) 10^3/ul Absolute Nucleated RBC 0 10^3/ul Nucleated RBC % 0 INR (Anticoag Therapy) 1.00 (0.77-1.02) APTT 35.0 (26.0-36.3) seconds Sodium 126 L (133-145) mmol/L Potassium 3.4 L (3.5-5.0) mmol/L Chloride 98 L (101-111) mmol/L Carbon Dioxide 20 L (22-32) mmol/L Anion Gap 8 (2-11) mmol/L BUN 7 (6-24) mg/dL Creatinine 0.80 (0.51-0.95) mg/dL Est GFR ( Amer) 92.6 (>60) Est GFR (Non-Af Amer) 72.0 (>60) BUN/Creatinine Ratio 8.8 (8-20) Glucose 67 L (70-100) mg/dL Calcium 8.4 L (8.6-10.3) mg/dL Total Bilirubin 0.30 (0.2-1.0) mg/dL AST 15 (13-39) U/L ALT 7 (7-52) U/L Alkaline Phosphatase 49 (34-104) U/L C-Reactive Protein 7.04 H (< 5.00) mg/L Total Protein 5.7 L (6.4-8.9) g/dL Albumin 3.2 (3.2-5.2) g/dL Globulin 2.5 (2-4) g/dL Albumin/Globulin Ratio 1.3 (1-3) Amylase 29 (29-103) U/L Lipase 11 (11.0-82.0) U/L Urine Color Urine Appearance Urine pH (5-9) Ur Specific [place] (1.010-1.030) Urine Protein (Negative) Urine Ketones (Negative) Urine Blood (Negative) Urine Nitrate (Negative) Urine Bilirubin (Negative) Urine Urobilinogen (Negative) Ur Leukocyte Esterase (Negative) Urine WBC (Auto) (Absent) Urine RBC (Auto) (Absent) Ur Squamous Epith Cells (Absent) Urine Bacteria (Absent) Urine Glucose (Negative) Influenza A (Rapid) (Negative) Influenza B (Rapid) (Negative) 06/04/17 06/04/17 Range/Units 00:48 03:17 WBC (3.5-10.8) 10^3/ul RBC (4.0-5.4) 10^6/ul Hgb (12.0-16.0) g/dl Hct (35-47) % MCV (80-97) fL MCH (27-31) pg MCHC (31-36) g/dl RDW (10.5-15) % Plt Count (150-450) 10^3/ul MPV (7.4-10.4) um3 Neut % (Auto) (38-83) % Lymph % (Auto) (25-47) % [place] % (Auto) (1-9) % Eos % (Auto) (0-6) % Baso % (Auto) (0-2) % Absolute Neuts (auto) (1.5-7.7) 10^3/ul Absolute Lymphs (auto) (1.0-4.8) 10^3/ul Absolute Monos (auto) (0-0.8) 10^3/ul Absolute Eos (auto) (0-0.6) 10^3/ul Absolute Basos (auto) (0-0.2) 10^3/ul Absolute Nucleated RBC 10^3/ul Nucleated RBC % INR (Anticoag Therapy) (0.77-1.02) APTT (26.0-36.3) seconds Sodium (133-145) mmol/L Potassium (3.5-5.0) mmol/L Chloride (101-111) mmol/L Carbon Dioxide (22-32) mmol/L Anion Gap (2-11) mmol/L BUN (6-24) mg/dL Creatinine (0.51-0.95) mg/dL Est GFR ( Amer) (>60) Est GFR (Non-Af Amer) (>60) BUN/Creatinine Ratio (8-20) Glucose (70-100) mg/dL Calcium (8.6-10.3) mg/dL Total Bilirubin (0.2-1.0) mg/dL AST (13-39) U/L ALT (7-52) U/L Alkaline Phosphatase (34-104) U/L C-Reactive Protein (< 5.00) mg/L Total Protein (6.4-8.9) g/dL Albumin (3.2-5.2) g/dL Globulin (2-4) g/dL Albumin/Globulin Ratio (1-3) Amylase (29-103) U/L Lipase (11.0-82.0) U/L Urine Color Yellow Urine Appearance Clear Urine pH 6.0 (5-9) Ur Specific [place] 1.008 L (1.010-1.030) Urine Protein 2+(100 mg/dl) H (Negative) Urine Ketones Trace H (Negative) Urine Blood Negative (Negative) Urine Nitrate Negative (Negative) Urine Bilirubin Negative (Negative) Urine Urobilinogen Negative (Negative) Ur Leukocyte Esterase Negative (Negative) Urine WBC (Auto) Trace(0-5/hpf) (Absent) Urine RBC (Auto) Trace(0-2/hpf) (Absent) Ur Squamous Epith Cells Present H (Absent) Urine Bacteria Absent (Absent) Urine Glucose Negative (Negative) Influenza A (Rapid) Negative (Negative) Influenza B (Rapid) Negative (Negative) CXR, personally reviewed: no acute finding Impression: 66F HX adenoCA lung, COPD, & CAD/NSTEMI/cath showing 100% RCA & 60- 65% LAD (no stents) presents with chest pain for r/o ACS DIAGNOSIS & PLAN Primary SIRS ? source, suspect viral : blood, sputum, & urine CX : hold ABX at this time : IVFs : supportive care hypoNatremia w/ HX adenoCA lung : volume depletion favored over SIADH : NS IVFs COPD not in exacerbation : albuterol nebs PRN : smoking cessation advised, low motivation : supportive care Secondary PFO : no acute issues HTN : review meds once reconciled HLD : review meds once reconciled hypothyroidism : review meds once reconciled chronic LBP : review meds once reconciled : HX opioid & benzodiazepine abuse, avoid if able hiatal hernia/GERD : omeprazole Admission Rational: observation for SIRS DVTp: heparin SQ & SCDs Code Status: full HCP: daughter, Yesy Glover
[2017-06-04] MEDS ORDERED: NS 0.9% 1000 ML* 1,500 ML IV SCH (07:45)
--- NOTE | 2017-06-04 07:48 | RAD ---
Indication: Weakness. Single frontal view of the chest demonstrates postoperative changes in the left hilum. Lung barron appear clear. Volume loss in left hemithorax is noted. No alveolar consolidation is noted. Overall no changes noted since May 31, 2017. IMPRESSION: Postoperative changes in the left hilum. No active cardiopulmonary disease is noted. No changes noted since May 31, 2017.
[2017-06-04] MEDS ORDERED: Docusate CAP* 100 MG PO SCH (09:00)
[2017-06-04] MEDS: traMADol TAB* 50 MG PO PRN ×2 (11:45→17:34)
[2017-06-04] MEDS: NS 0.9% 1000 ML* 1,000 ML IV SCH ×2 (11:45→15:35)
[2017-06-04] MEDS ORDERED: Nabumetone TAB* 500 MG PO PRN ×2 (12:50→21:00)
[2017-06-04] MEDS ORDERED: Gabapentin CAP(*) 300 MG PO PRN (12:50)
[2017-06-04] MEDS ORDERED: QUEtiapine TAB* 100 MG PO PRN (12:50)
[2017-06-04] MEDS ORDERED: LORazepam TAB(*) 0.5 MG PO PRN (12:50)
[2017-06-04] MEDS ORDERED: Albuterol HFA INHALER* 8 gm MDI INH PRN (12:50)
[2017-06-04] MEDS ORDERED: Ipratropium 0.5MG/2.5ML NEB* 0.5 MG/2.5 ML NEB.SOLN INH PRN (12:50)
[2017-06-04] MEDS: Levothyroxine TAB* 175 MCG TAB PO SCH (13:37)
[2017-06-04] MEDS: Metoprolol Succinate XL TAB* 50 MG PO SCH (13:37)
[2017-06-04] MEDS: DULoxetine DR CAP* 60 MG CAP.DR PO SCH (13:37)
[2017-06-04] MEDS: Clopidogrel TAB* 75 MG PO SCH (13:37)
[2017-06-04] MEDS: Diltiazem CD CAP* 120 MG PO SCH (13:37)
[2017-06-04] MEDS: Lidocaine PATCH 5%* 1 PATCH TRANSDERM SCH (13:38)
[2017-06-04] MEDS ORDERED: Atorvastatin* 40 MG TAB PO SCH (17:00)
[2017-06-04] MEDS ORDERED: Mometasone 220 MCG MDI INH SCH (18:00)
[2017-06-04] MEDS: Butalb/Acetamin/Caff TAB* 1 TAB PO PRN (18:56)
[2017-06-04] MEDS ORDERED: Warfarin TAB(*) 6 MG PO ONE (20:00)
[2017-06-04] MEDS ORDERED: Lidocaine Patch REMOVE* 1 NOTE MISC SCH (21:00)
[2017-06-04] MEDS: CMCS: Pantoprazole TAB (NF) 40 MG TAB PO SCH (21:03)
[2017-06-04] MEDS: Enoxaparin(*) 40 MG/0.4 ML SYR SUBCUT SCH (21:03)
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
[2017-06-05] MEDS: Butalb/Acetamin/Caff TAB* 1 TAB PO PRN ×2 (01:58→07:39)
[2017-06-05] MEDS: NS 0.9% 1000 ML* 1,000 ML IV SCH (04:15)
[2017-06-05] MEDS: Levothyroxine TAB* 175 MCG TAB PO SCH (05:49)
[2017-06-05] MEDS ORDERED: Omeprazole CAP* 20 MG PO SCH (06:00)
[2017-06-05] MEDS ORDERED: Heparin VIAL(*) 5000 UNITS/ML VIAL (FIVE THOUSAND) SUBCUT SCH (06:00)
[2017-06-05] MEDS: Lidocaine PATCH 5%* 1 PATCH TRANSDERM SCH (07:20)
[2017-06-05] MEDS: Diltiazem CD CAP* 120 MG PO SCH (07:38)
[2017-06-05] MEDS: Metoprolol Succinate XL TAB* 50 MG PO SCH (07:39)
[2017-06-05] MEDS: DULoxetine DR CAP* 60 MG CAP.DR PO SCH (07:39)
[2017-06-05] MEDS: Clopidogrel TAB* 75 MG PO SCH (07:39)
[2017-06-05] MEDS: Enoxaparin(*) 40 MG/0.4 ML SYR SUBCUT SCH (07:39)
[2017-06-05] MEDS: CMCS: Pantoprazole TAB (NF) 40 MG TAB PO SCH (07:45)
[2017-06-05] MEDS ORDERED: Potassium Chlor TAB* 20 MEQ TAB.ER PO ONE (07:52)
[2017-06-05 10:22] LABS: ABS Basophils 0 10^3/ul (0-0.2); ABS Eosinophils 0 10^3/ul (0-0.6); ABS Lymphocytes 0.9 10^3/ul (1.0-4.8); ABS Monocytes 0.7 10^3/ul (0-0.8); ABS Neutrophils 2.4 10^3/ul (1.5-7.7); ABS Nucleated RBC 0 10^3/ul; Eosinophil % 0.2 % (0-6); Hematocrit 26 % (35-47); Hemoglobin 8.6 g/dl (12.0-16.0); Lymphocyte % 22.6 % (25-47); Mean Corpuscular HGB Conc 34 g/dl (31-36); Mean Corpuscular Hemoglobin 31 pg (27-31); Mean Corpuscular Volume 92 fL (80-97); Mean Platelet Volume 8 um3 (7.4-10.4); Nucleated Red Blood Cells % 0.2; Platelet Count 261 10^3/ul (150-450); Red Blood Count 2.76 10^6/ul (4.0-5.4); Red Cell Distribution Width 17 % (10.5-15)
[2017-06-05] MEDS: traMADol TAB* 50 MG PO PRN (10:29)
[2017-06-05 10:45] LABS: EGFR Non-African American 98.4 (>60)
[2017-06-05 10:52] LABS: INR 1.12 (0.77-1.02)
[2017-06-05 12:24] VITALS: BP 130/66
--- NOTE | 2017-06-05 13:08 | HP ---
H&P (Free Text) History and Physical: Called to bedside by RN for re-evaluation. Patient's daughter at bedside stating that patient is confused and inappropriate and doesn't recognize her. When interviewed, patient states correct name, birthdate, year, president's name , daughter's name, address and granddaughter's name. Patient states she was groggy when daughter came in and had just woken up and wasn't thinking clearly but she feels fine and wants to go home now. Explained to patient and her daughter that if anything changes she is free to come back to the hospital to be re-evaluated. Will also talk to case management about VNS services that are already in the home and ensure they follow up in the AM. Patient and daughter verbalized their understanding of the discharge plan and are agreeable.
[2017-06-05] MEDS ORDERED: Warfarin TAB(*) 6 MG PO SCH (17:00)
--- NOTE | 2017-06-05 17:13 | DS ---
AMENDED REPORT NOW INCLUDES COSIGNER DESIGNATION - ESIGNED BEFORE ADJUSTMENT CC: Guerrero Gtz NP, * DISCHARGE SUMMARY: DATE OF ADMISSION: 06/04/17 DATE OF DISCHARGE: 06/05/17 ATTENDING PHYSICIAN: Timothy Melton MD * (DICTATED BY BRYANNA KELLEY NP) PRIMARY CARE PROVIDER: Guerrero Fernandez NP HOSPITAL COURSE: This is a pleasant 66-year-old female patient who came to the emergency department on 06/04/17 with a complaint of general malaise. Patient was stating some upper respiratory illness and symptoms while she was at home. Patient also has chronic migraine and multiple comorbidities. 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 Chest x-ray was negative. Lab values at the time of evaluation were at her baseline. She had some low-grade tachycardia in the 110s, but otherwise her examination was unremarkable. It was noted that she has some probably viral upper respiratory illness and complained of migraine headache, which is chronic for her. Patient was admitted to observation overnight. Also , of note, the patient also has some hyponatremia. She received some IV normal saline overnight. She does have history of COPD, but it was not in exacerbation. She received albuterol treatments as needed. Rest of her comorbidities were at baseline. Essentially the patient was kept for IV hydration and received some butalbital for her migraine headache. She was seen and examined in the morning of 06/05/16. Notes that she still has migraine headache, but she does feel stable enough to go home. She received 1 dose of her Fioricet medication and states that she wishes to be discharged this afternoon. Prescription for her Fioricet was sent to her pharmacy. MEDICATIONS AT THE TIME OF DISCHARGE: Include, 1. Levothyroxine 25 mcg daily. 2. Albuterol nebulizer 2.5 mg q.4 hours as needed. 3. Ventolin inhaler 2 puffs q.4 hours as needed. 4. Duloxetine 60 mg daily. 5. Fluticasone 220 mcg 1 puff b.i.d. 6. Seroquel 200 mg at bedtime. 7. Lipitor 40 mg daily. 8. Plavix 75 mg daily. 9. Gabapentin 300 mg 3 times a day. 10. Relafen 750 mg 3 times a day as needed. 11. Tylenol 650 mg q.6 hours as needed. 12. Diltiazem 120 mg daily. 13. Lorazepam 0.5 mg q.8 hours as needed. 14. Metoprolol succinate XL 50 mg daily. 15. Protonix 40 mg 2 times a day. LABORATORY DATA: Laboratories at the time of discharge: WBCs 7.0, RBCs 2.77, hemoglobin 8.6, hematocrit 26, platelets 313. Sodium 126, potassium 3.4, chloride 98, carbon dioxide 20, BUN 7, creatinine 0.8, glucose 67, calcium 8.4. Urinalysis shows no acute infectious process. She does have some proteinuria, 2 + protein, and some trace ketones. PHYSICAL EXAMINATION: Vital signs at the time of discharge: Temperature 97.8 , heart rate 62, respiratory rate 14, satting 100% on room air, blood pressure is 139/83. Patient was discharged to home in stable condition. Patient states that she does have her daughter for support. She will call her daughter to pick her up. Prescription for Fioricet 10 pills was sent to her pharmacy at her request for her migraine headaches. She was instructed to follow up with her primary care provider in the next week to have her migraines evaluated. Patient states her understanding. Patient was also told to return to the emergency department if she had any further issues or decompensation. BRYANNA KELLEY NP [id number]/[facility] #: [id number] NICOLE
== END 2017-06-05 13:45 | disposition home or self-care (01) ==
LOC: ED 21:53 → MED 06-04 07:19
PROVIDERS: ADMIT Hospitalist; ATTEND Hospitalist
DX: B34.9 Viral infection, unspecified (principal); R42 Dizziness and giddiness; R53.1 Weakness; R07.89 Other chest pain; G43.909 Migraine, unspecified, not intractable, without status migrainosus; J44.9 Chronic obstructive pulmonary disease, unspecified; E87.1 Hypo-osmolality and hyponatremia; I10 Essential (primary) hypertension; R00.0 Tachycardia, unspecified; I25.10 Atherosclerotic heart disease of native coronary artery without angina pectoris; I25.2 Old myocardial infarction; Q21.1 Atrial septal defect; E78.5 Hyperlipidemia, unspecified; E03.9 Hypothyroidism, unspecified; I95.9 Hypotension, unspecified; R11.0 Nausea; Z85.118 Personal history of other malignant neoplasm of bronchus and lung; Z72.0 Tobacco use; Z79.899 Other long term (current) drug therapy; Z79.01 Long term (current) use of anticoagulants
CPT/HCPCS: 36415; 71045; 80048; 80053; 81003; 81015; 82150; 83690; 83735; 85025; 85610; 85730; 86140; 87040; 87086; 87502; 96361; 96374; 99285; A9270-GY; G0378; J1650; J2270; J2405; J2765

== ENCOUNTER 2017-06-07 13:09 | Inpatient (IN) | payer MEDICARE, BC ==
[2017-06-07] MEDS ORDERED: NS 0.9% 1000 ML* 1,000 ML IV ONE (13:35)
[2017-06-07 13:46] LABS: ABS Basophils 0.1 10^3/ul (0-0.2); ABS Eosinophils 0 10^3/ul (0-0.6); ABS Lymphocytes 0.7 10^3/ul (1.0-4.8); ABS Monocytes 0.7 10^3/ul (0-0.8); ABS Neutrophils 6.1 10^3/ul (1.5-7.7); ABS Nucleated RBC 0 10^3/ul; Eosinophil % 0 % (0-6); Hematocrit 34 % (35-47); Hemoglobin 11.3 g/dl (12.0-16.0); Lymphocyte % 9.1 % (25-47); Mean Corpuscular HGB Conc 33 g/dl (31-36); Mean Corpuscular Hemoglobin 30 pg (27-31); Mean Corpuscular Volume 92 fL (80-97); Mean Platelet Volume 8 um3 (7.4-10.4); Nucleated Red Blood Cells % 0; Platelet Count 311 10^3/ul (150-450); Red Blood Count 3.71 10^6/ul (4.0-5.4); Red Cell Distribution Width 18 % (10.5-15); White Blood Count 7.6 10^3/ul (3.5-10.8)
[2017-06-07 13:55] LABS: INR 0.97 (0.77-1.02)
[2017-06-07 14:02] LABS: EGFR Non-African American 64.5 (>60)
--- NOTE | 2017-06-07 14:14 | RAD ---
INDICATION: Trauma. COMPARISON: Comparison is made with a prior CT of the brain from May 18, 2017. TECHNIQUE: Contiguous axial sections of the brain were obtained from the skull base to the vertex without contrast. FINDINGS: The ventricles, cisterns and sulci are within normal limits. There are small areas of decreased density in the subcortical and periventricular white matter suggestive of mild chronic small vessel ischemic changes. In addition there is a new hypodense area involving the cortex and subcortical white matter in the right parietal lobe suspicious for an infarct although nonspecific. There is no evidence for hemorrhage. No fracture is seen. There is circumferential mucosal thickening within the maxillary sinuses and mucosal thickening within the ethmoid air cells consistent with chronic sinusitis. The results of this exam were called to the referring clinician. IMPRESSION: 1. NEW SMALL HYPODENSE AREA INVOLVING THE CORTEX AND SUBCORTICAL WHITE MATTER IN THE RIGHT PARIETAL LOBE SUSPICIOUS FOR A NONHEMORRHAGIC INFARCT. CONSIDER MR IMAGING FOR CONFIRMATION. 2. CHRONIC SINUSITIS.
--- NOTE | 2017-06-07 14:56 | RAD ---
HISTORY: Weakness, recent hospitalization, status post left lung resection. COMPARISONS: June 04, 2017, CT dated May 02, 2017 VIEWS: 1: frontal portable view of the chest at 2:20 PM FINDINGS: LINES AND TUBES: None. CARDIOMEDIASTINAL SILHOUETTE: The cardiomediastinal silhouette is normal for portable technique. PLEURA: The costophrenic angles are sharp. No pleural abnormalities are noted. LUNG PARENCHYMA: There is hyperinflation. There are stable diffusely increased density of the left hemithorax consistent with a layering pleural effusion versus chronic pleural thickening similar to the previous CT examination of May 02, 2017. Surgical clips noted in left hilum. ABDOMEN: The upper abdomen is clear. There is no subphrenic gas. BONES AND SOFT TISSUES: No bone or soft tissue abnormalities are noted. IMPRESSION: STABLE POSTSURGICAL CHANGE. NO ACTIVE CARDIOPULMONARY DISEASE.
[2017-06-07] MEDS: KCL 10 MEQ/50 ML IVPREMIX* 10 MEQ/50 ML BAG IV SCH ×4 (15:01→22:54)
[2017-06-07] MEDS ORDERED: Potassium Chloride LIQUID* 20 MEQ PACKET PO ONE (15:40)
[2017-06-07] MEDS ORDERED: Magnesium Sulfate 2 GM IV* 2 GM/50 ML BAG IVPB ONE (15:40)
[2017-06-07] MEDS ORDERED: Ondansetron INJ* 2 MG/ML VIAL IV PRN (15:40)
[2017-06-07] MEDS ORDERED: Ipratropium 0.5MG/2.5ML NEB* 0.5 MG/2.5 ML NEB.SOLN INH PRN (16:09)
[2017-06-07] MEDS ORDERED: Albuterol 2.5 MG/3 ML NEB.SOL* (0.083%) INH PRN (16:09)
[2017-06-07] MEDS: traMADol TAB* 50 MG PO PRN (17:49)
[2017-06-07] MEDS: Atorvastatin* 40 MG TAB PO SCH (18:21)
[2017-06-07] MEDS: Diltiazem TAB* 30 MG PO SCH ×2 (18:21→22:54)
--- NOTE | 2017-06-07 18:24 | ED ---
Elliot Winkler Julia, scribed for Solo Seth MD on 06/07/17 at 1326 . Complex/Multi-Sys Presentation - HPI Summary HPI Summary: This patient is a 66 year old F BIBA to [facility] with a chief complaint of generalized weakness for past few days. Patient was recently seen for an URI and was released back home on 06/05/17 and has not eaten since then. EMS found patient on couch soaked in urine. Patient reports that fell last night trying to go to the bathroom and lost consciousness. Patient does not use her at home oxygen. Patient reports generalized body aches, splitting headache, and abdominal pain for past few days. Patient denies SOB and fever. - History Of Current Complaint Chief Complaint: EDGeneral Time Seen by Provider: 06/07/17 13:21 Hx Obtained From: Patient, EMS Onset/Duration: Gradual Onset, Lasting Days Timing: Constant Character: Dull - general body aches, Migraine Associated Signs And Symptoms: Positive: Other - generalized body aches, splitting headache, and abdominal pain - Allergies/Home Medications Allergies/Adverse Reactions: Allergies Allergy/AdvReac Type Severity Reaction Status Date / Time Aspirin Allergy Severe Anaphylatic Verified 06/03/17 22:03 Shock Latex AdvReac Mild Rash Verified 06/03/17 22:03 PMH/Surg Hx/FS Hx/Imm Hx Endocrine/Hematology History: Reports: Hx Thyroid Disease - hypothyroid, Other Endocrine/Hematological Disorders - Benign goiter Denies: Hx Bone Marrow Disease, Hx Diabetes, Hx Systemic Lupus Erythematosus Cardiovascular History: Reports: Hx Angina - pressure, not pain, Hx Hypercholesterolemia - was high before cancer,now off meds., Hx Hypertension, Hx Myocardial Infarction - NSTEMI, Other Cardiovascular Problems/Disorders - patent foramen ovale; Murmur, Denies: Hx Congestive Heart Failure, Hx Coronary Artery Disease, Hx Pacemaker /ICD, Hx Valvular Heart Disease Respiratory History: Reports: Hx Asthma, Hx Chronic Obstructive Pulmonary Disease (COPD), Hx Lung Cancer - Left upper lobectomy, Hx Pneumonia, Other Respiratory Problems/Disorders - lung cancer, LOBECTOMY 09/11/11 GI History: Reports: Hx Gastroesophageal Reflux Disease, Hx Hiatal Hernia, Other GI Disorders - hiatal hernia, colitis. 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, Hx Osteoporosis - Possible, Hx Scoliosis, Other Musculoskeletal History - scoliosis Denies: Hx Rheumatoid Arthritis Sensory History: Reports: Hx Cataracts - PATIENT STATES BEGINING OF CATARACTS LEFT EYE, Hx Contacts or Glasses, Hx Hearing Problem - right Denies: Hx Hearing Aid Opthamlomology History: Reports: Hx Cataracts - PATIENT STATES BEGINING OF CATARACTS LEFT EYE, Hx Contacts or Glasses Neurological History: Reports: Hx CVA - in 05/16, Hx Headaches - frequent h/a's , Hx Migraine - Rare post menopause Psychiatric History: Reports: Hx Anxiety, Hx Depression, Hx Community Mental Health Tx, Hx Substance Abuse - opiods Denies: Hx Panic Disorder, Hx Inpatient Treatment - Cancer History Cancer Type, Location and Year: LUNG CA, DIAGNOSED July 2012 Hx Chemotherapy: Yes Hx Radiation Therapy: No Hx Palliative Cancer Treatment: No - Surgical History Surgery Procedure, Year, and Place: LEFT UPPER LUNG REMOVED 09/2012, HYSTERECTOMY , tonsillectomy Hx Anesthesia Reactions: No - Immunization History Date of Tetanus Vaccine: utd Date of Influenza Vaccine: utd Infectious Disease History: No Infectious Disease History: Denies: Hx of Known/Suspected MRSA - Family History Known Family History: Positive: Cardiac Disease - Sudden cardiac arrest (father) , Other - son -- glioblastoma. UC mother. Fhx of colitis. - Social History Alcohol Use: None Hx Substance Use: No Substance Use Type: Reports: Other Substance Use Comment - Amount & Last Used: percocet Hx Tobacco Use: Yes Smoking Status (MU): Heavy Every Day Tobacco Smoker Type: Cigarettes Amount Used/How Often: 1/2 pack a day Length of Time of Smoking/Using Tobacco: 47 years Have You Smoked in the Last Year: Yes Review of Systems Positive: Fatigue. Negative: Fever Negative: Shortness Of Breath Positive: Abdominal Pain Positive: Other - body aches Positive: Headache, Syncope All Other Systems Reviewed And Are Negative: Yes Physical Exam - Summary Physical Exam Summary: Appearance: The patient is well-nourished in no acute distress and in no acute pain. Skin: The skin is warm and dry and skin color reflects adequate perfusion. HEENT: The head is normocephalic with a L mild periorbital hematoma. The pupils are equal and reactive. The conjunctivae are clear and without drainage. Nares are patent and without drainage. Mouth reveals moist mucous membranes and the throat is without erythema and exudate. The external ears are intact. The ear canals are patent and without drainage. The tympanic membranes are intact. Neck: the neck is supple with full range of motion and non-tender. There are no carotid bruits. There is no neck vein distension. Respiratory: Chest is non-tender. Lungs are clear to auscultation and breath sounds are symmetrical and equal. Cardiovascular: Heart is tacycardic with regular rhythm. There is no murmur or rub auscultated. There is no peripheral edema and pulses are symmetrical and equal. Abdomen: The abdomen is soft and non-tender. There are normal bowel sounds heard in all four quadrants and there is no organomegaly palpated. Musculoskeletal: There is no back tenderness noted. Extremities are non-tender with full range of motion. There is good capillary refill. There is no peripheral edema or calf tenderness elicited. Neurological: Patient is alert and oriented to person, place and time. The patient has symmetrical motor strength in all four extremities. Cranial nerves are grossly intact. Deep tendon reflexes are symmetrical and equal in all four extremities. Psychiatric: The patient has an appropriate affect and does not exhibit any anxiety or depression Triage Information Reviewed: Yes Vital Signs On Initial Exam: Initial Vitals Temp Pulse Resp BP Pulse Ox 99.8 F 108 20 112/69 100 06/07/17 13:21 06/07/17 13:21 06/07/17 13:21 06/07/17 13:21 06/07/17 13:21 Vital Signs Reviewed: Yes Diagnostics - Vital Signs Vital Signs Temp Pulse Resp BP Pulse Ox 06/07/17 15:30 25 138/81 06/07/17 15:25 27 20 140/79 80 06/07/17 15:00 25 06/07/17 14:06 23 06/07/17 13:34 23 95/72 06/07/17 13:21 99.8 F 108 20 112/69 100 - Laboratory Lab Results: Lab Results 06/07/17 06/07/17 06/07/17 Range/Units 13:33 13:33 13:33 WBC 7.6 (3.5-10.8) 10^3/ul RBC 3.71 L (4.0-5.4) 10^6/ul Hgb 11.3 L (12.0-16.0) g/dl Hct 34 L (35-47) % MCV 92 (80-97) fL MCH 30 (27-31) pg MCHC 33 (31-36) g/dl RDW 18 H (10.5-15) % Plt Count 311 (150-450) 10^3/ul MPV 8 (7.4-10.4) um3 Neut % (Auto) 80.2 (38-83) % Lymph % (Auto) 9.1 L (25-47) % Ju[place] % (Auto) 9.9 H (1-9) % Eos % (Auto) 0 (0-6) % Baso % (Auto) 0.8 (0-2) % Absolute Neuts (auto) 6.1 (1.5-7.7) 10^3/ul Absolute Lymphs (auto) 0.7 L (1.0-4.8) 10^3/ul Absolute Monos (auto) 0.7 (0-0.8) 10^3/ul Absolute Eos (auto) 0 (0-0.6) 10^3/ul Absolute Basos (auto) 0.1 (0-0.2) 10^3/ul Absolute Nucleated RBC 0 10^3/ul Nucleated RBC % 0 INR (Anticoag Therapy) (0.77-1.02) Sodium 132 L (133-145) mmol/L Potassium 2.6 L* (3.5-5.0) mmol/L Chloride 97 L (101-111) mmol/L Carbon Dioxide 21 L (22-32) mmol/L Anion Gap 14 H (2-11) mmol/L BUN 8 (6-24) mg/dL Creatinine 0.88 (0.51-0.95) mg/dL Est GFR ( Amer) 82.9 (>60) Est GFR (Non-Af Amer) 64.5 (>60) BUN/Creatinine Ratio 9.1 (8-20) Glucose 89 (70-100) mg/dL Lactic Acid 1.2 (0.5-2.0) mmol/L Calcium 8.1 L (8.6-10.3) mg/dL Magnesium 1.7 L (1.9-2.7) mg/dL Total Bilirubin 0.30 (0.2-1.0) mg/dL AST 47 H (13-39) U/L ALT 18 (7-52) U/L Alkaline Phosphatase 56 (34-104) U/L Total Creatine Kinase 703 H (10-223) U/L Troponin I 0.04 H* (<0.04) ng/mL Total Protein 6.2 L (6.4-8.9) g/dL Albumin 3.5 (3.2-5.2) g/dL Globulin 2.7 (2-4) g/dL Albumin/Globulin Ratio 1.3 (1-3) TSH 4.76 (0.34-5.60) mcIU/mL 06/07/17 Range/Units 13:33 WBC (3.5-10.8) 10^3/ul RBC (4.0-5.4) 10^6/ul Hgb (12.0-16.0) g/dl Hct (35-47) % MCV (80-97) fL MCH (27-31) pg MCHC (31-36) g/dl RDW (10.5-15) % Plt Count (150-450) 10^3/ul MPV (7.4-10.4) um3 Neut % (Auto) (38-83) % Lymph % (Auto) (25-47) % [place] % (Auto) (1-9) % Eos % (Auto) (0-6) % Baso % (Auto) (0-2) % Absolute Neuts (auto) (1.5-7.7) 10^3/ul Absolute Lymphs (auto) (1.0-4.8) 10^3/ul Absolute Monos (auto) (0-0.8) 10^3/ul Absolute Eos (auto) (0-0.6) 10^3/ul Absolute Basos (auto) (0-0.2) 10^3/ul Absolute Nucleated RBC 10^3/ul Nucleated RBC % INR (Anticoag Therapy) 0.97 (0.77-1.02) Sodium (133-145) mmol/L Potassium (3.5-5.0) mmol/L Chloride (101-111) mmol/L Carbon Dioxide (22-32) mmol/L Anion Gap (2-11) mmol/L BUN (6-24) mg/dL Creatinine (0.51-0.95) mg/dL Est GFR ( Amer) (>60) Est GFR (Non-Af Amer) (>60) BUN/Creatinine Ratio (8-20) Glucose (70-100) mg/dL Lactic Acid (0.5-2.0) mmol/L Calcium (8.6-10.3) mg/dL Magnesium (1.9-2.7) mg/dL Total Bilirubin (0.2-1.0) mg/dL AST (13-39) U/L ALT (7-52) U/L Alkaline Phosphatase (34-104) U/L Total Creatine Kinase (10-223) U/L Troponin I (<0.04) ng/mL Total Protein (6.4-8.9) g/dL Albumin (3.2-5.2) g/dL Globulin (2-4) g/dL Albumin/Globulin Ratio (1-3) TSH (0.34-5.60) mcIU/mL Result Diagrams: 06/07/17 13:33 06/07/17 13:33 Lab Statement: Any lab studies that have been ordered have been reviewed, and results considered in the medical decision making process. - Radiology CXR Radiology Interpretation Completed By: Radiologist - STABLE POSTSURGICAL CHANGE. NO ACTIVE CARDIOPULMONARY DISEASE. ED Physician has reviewed this report. - CT Brain CT CT Interpretation Completed By: Radiologist - 1. NEW SMALL HYPODENSE AREA INVOLVING THE CORTEX AND SUBCORTICAL WHITE MATTER IN THE RIGHT PARIETAL LOBE SUSPICIOUS FOR A NONHEMORRHAGIC INFARCT. CONSIDER MR IMAGING FOR CONFIRMATION. 2. CHRONIC SINUSITIS. ED Physician has reviewed this report. - EKG 13:43 Cardiac Rate: Tachycardia EKG Rhythm: Sinus Tachycardia - at 103 BPM EKG Interpretation: LVH Complex Multi-Symp Course/Dx Course Of Treatment: Ms. Glover has apparently been lying down for a couple days after going home from here. At one point she tried to get up to the BR and fell striking her head. She was found on CT to have had a CVA sometime in between now and 05/15/17 when she had a negative CT. She is being admitted to the hospitalist service for further W/U. - Diagnoses Provider Diagnoses: CVA (cerebral vascular accident) - Physician Notifications Discussed Care Of Patient With: Chad Nelson Time Discussed With Above Provider: 14:16 Instructed by Provider To: Admit As Inpatient Discharge - Discharge Plan Condition: Stable Disposition: ADMITTED TO [facility] The documentation as recorded by the Elliot crawford Julia accurately reflects the service I personally performed and the decisions made by me, Solo Seth MD.
[2017-06-07] MEDS: Oseltamivir CAP* 30 MG CAP PO SCH ×2 (19:54→22:54)
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
[2017-06-07] MEDS: Albuterol HFA INHALER* 8 gm MDI INH PRN (20:10)
[2017-06-07] MEDS: Mometasone 220 MCG MDI INH SCH (20:15)
[2017-06-07] MEDS: Butalb/Acetamin/Caff TAB* 1 TAB PO PRN (20:36)
[2017-06-07] MEDS: Heparin VIAL(*) 5000 UNITS/ML VIAL (FIVE THOUSAND) SUBCUT SCH (20:37)
[2017-06-07] MEDS: Metoprolol Tartrate TAB* 25 MG PO SCH (20:37)
[2017-06-07] MEDS: Acetaminophen TAB* 325 MG PO PRN (20:38)
[2017-06-07] MEDS: CMCS: Pantoprazole TAB (NF) 40 MG TAB PO SCH (22:54)
[2017-06-08] MEDS: Gabapentin CAP(*) 300 MG PO PRN ×2 (01:48→11:06)
[2017-06-08 05:10] LABS: ABS Basophils 0 10^3/ul (0-0.2); ABS Eosinophils 0 10^3/ul (0-0.6); ABS Lymphocytes 1.1 10^3/ul (1.0-4.8); ABS Monocytes 0.8 10^3/ul (0-0.8); ABS Nucleated RBC 0 10^3/ul; Eosinophil % 0.5 % (0-6); Hematocrit 26 % (35-47); Hemoglobin 8.8 g/dl (12.0-16.0); Lymphocyte % 16.4 % (25-47); Mean Corpuscular HGB Conc 33 g/dl (31-36); Mean Corpuscular Hemoglobin 31 pg (27-31); Mean Corpuscular Volume 92 fL (80-97); Mean Platelet Volume 8 um3 (7.4-10.4); Nucleated Red Blood Cells % 0.1; Platelet Count 229 10^3/ul (150-450); Red Blood Count 2.86 10^6/ul (4.0-5.4); Red Cell Distribution Width 18 % (10.5-15)
[2017-06-08 05:26] LABS: EGFR Non-African American 65.3 (>60)
[2017-06-08] MEDS: Heparin VIAL(*) 5000 UNITS/ML VIAL (FIVE THOUSAND) SUBCUT SCH ×3 (06:08→21:48)
[2017-06-08] MEDS: Diltiazem TAB* 30 MG PO SCH ×3 (06:08→18:08)
[2017-06-08] MEDS: Butalb/Acetamin/Caff TAB* 1 TAB PO PRN ×3 (06:08→22:07)
[2017-06-08] MEDS: Levothyroxine TAB* 175 MCG TAB PO SCH (06:08)
[2017-06-08 06:25] LABS: Urine Appearance Clear; Urine Blood 1+ (Negative); Urine Color Straw; Urine Ketones Negative (Negative); Urine Protein 1+(30 mg/dL) (Negative); Urine Specific Gravity 1.004 (1.010-1.030); Urine Urobilinogen Negative (Negative)
[2017-06-08] MEDS: Metoprolol Tartrate TAB* 25 MG PO SCH ×2 (08:19→21:46)
[2017-06-08] MEDS: CMCS: Pantoprazole TAB (NF) 40 MG TAB PO SCH ×2 (08:21→22:08)
[2017-06-08] MEDS: traMADol TAB* 50 MG PO PRN ×2 (08:21→16:29)
[2017-06-08] MEDS: DULoxetine DR CAP* 60 MG CAP.DR PO SCH (08:21)
[2017-06-08] MEDS: Clopidogrel TAB* 75 MG PO SCH (08:21)
[2017-06-08] MEDS: Oseltamivir CAP* 30 MG CAP PO SCH ×2 (08:21→21:47)
[2017-06-08 08:27] LABS: Urine Appearance Clear; Urine Blood 1+ (Negative); Urine Color Yellow; Urine Ketones Negative (Negative); Urine Protein 1+(30 mg/dL) (Negative); Urine Specific Gravity 1.005 (1.010-1.030); Urine Urobilinogen Negative (Negative)
--- NOTE | 2017-06-08 10:08 | PN ---
Subjective Date of Service: 06/08/17 Interval History: Pt examined today at the bedside. States that she has a headache. Denies chest pain and denies sob. States she has some nausea. Denies lightheadedness. ROS-denies fever, denies chills, admits to epigastric pain, denies chest pain, denies sob, admits to nausea, denies lightheadedness, denies loc, review of 11 systems completed all others negative, Objective Active Medications: Acetaminophen (Tylenol Tab*) 650 mg PO Q4H PRN PRN Reason: FEVER/PAIN Last Admin: 06/07/17 20:38 Dose: 650 mg Acetaminophen/Butalbital/Caffeine (Fioricet Tab*) 1 tab PO Q8H PRN PRN Reason: HEADACHE Last Admin: 06/08/17 06:08 Dose: 1 tab Albuterol (Ventolin 2.5 Mg/3 Ml Neb.Tracey*) 2.5 mg INH Q4H PRN PRN Reason: SOB/WHEEZING Albuterol (Ventolin Hfa Inhaler*) 2 puff INH Q4H PRN PRN Reason: SOB/WHEEZING Last Admin: 06/07/17 20:10 Dose: 2 puff Atorvastatin Calcium (Lipitor*) 40 mg PO 1700 [facility] Last Admin: 06/07/17 18:21 Dose: 40 mg Clopidogrel Bisulfate (Plavix Tab*) 75 mg PO DAILY [facility] Last Admin: 06/08/17 08:21 Dose: 75 mg Diltiazem HCl (Cardizem Tab*) 30 mg PO Q6HR [facility] Last Admin: 06/08/17 06:08 Dose: 30 mg Duloxetine HCl (Cymbalta Cap*) 60 mg PO DAILY [facility] Last Admin: 06/08/17 08:21 Dose: 60 mg Gabapentin (Neurontin Cap(*)) 300 mg PO TID PRN PRN Reason: PAIN Last Admin: 06/08/17 01:48 Dose: 300 mg Heparin Sodium (Porcine) (Heparin Vial(*)) 5,000 units SUBCUT Q8HR [facility] Last Admin: 06/08/17 06:08 Dose: 5,000 units Ipratropium [place] (Atrovent 0.5 Mg Neb.Tracey*) 0.5 mg INH QID PRN PRN Reason: SOB/WHEEZING Levothyroxine Sodium (Synthroid Tab*) 175 mcg PO DAILY@0600 [facility] Last Admin: 06/08/17 06:08 Dose: 175 mcg Metoprolol Tartrate (Lopressor Tab*) 25 mg PO BID [facility] Last Admin: 06/08/17 08:19 Dose: Not Given Mometasone Furoate (Asmanex 220 Mcg Mdi *) 2 puff INH QPM [facility] Last Admin: 06/07/17 20:15 Dose: 2 puff Ondansetron HCl (Zofran Inj*) 4 mg IV Q6H PRN PRN Reason: NAUSEA Oseltamivir Phosphate (Tamiflu Cap*) 30 mg PO BID [facility] Stop: 06/11/17 21:01 Last Admin: 06/08/17 08:21 Dose: 30 mg Pantoprazole Sodium (Protonix Tab (Nf)) 40 mg PO BID [facility] Last Admin: 06/08/17 08:21 Dose: 40 mg Tramadol HCl (Ultram*) 25 mg PO Q8H PRN PRN Reason: PAIN Last Admin: 06/08/17 08:21 Dose: 25 mg Vital Signs - 8 hr 06/08/17 06/08/17 06/08/17 04:29 06:08 06:11 Temperature 98.6 F Pulse Rate 65 Respiratory 16 20 20 Rate Blood Pressure 142/74 (mmHg) O2 Sat by Pulse 100 Oximetry 06/08/17 06/08/17 06/08/17 08:15 08:21 08:22 Temperature 98.1 F Pulse Rate 73 Respiratory 24 22 22 Rate Blood Pressure 94/59 (mmHg) O2 Sat by Pulse 100 Oximetry Oxygen Devices in Use Now: Nasal Cannula Appearance: 66 y/o frail female patient sitting in bed NAD, Eyes: No Scleral Icterus, PERRLA Ears/Nose/Mouth/Throat: NL Teeth, Lips, Gums Neck: NL Appearance and Movements; NL JVP Respiratory: Symmetrical Chest Expansion and Respiratory Effort, Clear to Auscultation Cardiovascular: NL Sounds; No Murmurs; No JVD Abdominal: NL Sounds; No Tenderness; No Distention Extremities: No Edema Skin: No Rash or Ulcers Neurological: Alert and Oriented x 3 Lines/Tubes/Other Access: Clean, Dry and Intact Peripheral IV Result Diagrams: 06/08/17 04:56 06/08/17 04:50 Additional Lab and Data: Lab Results 06/07/17 06/07/17 06/07/17 Range/Units 13:33 13:33 13:33 WBC 7.6 (3.5-10.8) 10^3/ul RBC 3.71 L (4.0-5.4) 10^6/ul Hgb 11.3 L (12.0-16.0) g/dl Hct 34 L (35-47) % MCV 92 (80-97) fL MCH 30 (27-31) pg MCHC 33 (31-36) g/dl RDW 18 H (10.5-15) % Plt Count 311 (150-450) 10^3/ul MPV 8 (7.4-10.4) um3 Neut % (Auto) 80.2 (38-83) % Lymph % (Auto) 9.1 L (25-47) % Rankin % (Auto) 9.9 H (1-9) % Eos % (Auto) 0 (0-6) % Baso % (Auto) 0.8 (0-2) % Absolute Neuts (auto) 6.1 (1.5-7.7) 10^3/ul Absolute Lymphs (auto) 0.7 L (1.0-4.8) 10^3/ul Absolute Monos (auto) 0.7 (0-0.8) 10^3/ul Absolute Eos (auto) 0 (0-0.6) 10^3/ul Absolute Basos (auto) 0.1 (0-0.2) 10^3/ul Absolute Nucleated RBC 0 10^3/ul Nucleated RBC % 0 INR (Anticoag Therapy) (0.77-1.02) Sodium 132 L (133-145) mmol/L Potassium 2.6 L* (3.5-5.0) mmol/L Chloride 97 L (101-111) mmol/L Carbon Dioxide 21 L (22-32) mmol/L Anion Gap 14 H (2-11) mmol/L BUN 8 (6-24) mg/dL Creatinine 0.88 (0.51-0.95) mg/dL Est GFR ( Amer) 82.9 (>60) Est GFR (Non-Af Amer) 64.5 (>60) BUN/Creatinine Ratio 9.1 (8-20) Glucose 89 (70-100) mg/dL Lactic Acid 1.2 (0.5-2.0) mmol/L Calcium 8.1 L (8.6-10.3) mg/dL Magnesium 1.7 L (1.9-2.7) mg/dL Total Bilirubin 0.30 (0.2-1.0) mg/dL AST 47 H (13-39) U/L ALT 18 (7-52) U/L Alkaline Phosphatase 56 (34-104) U/L Total Creatine Kinase 703 H (10-223) U/L Troponin I 0.04 H* (<0.04) ng/mL Total Protein 6.2 L (6.4-8.9) g/dL Albumin 3.5 (3.2-5.2) g/dL Globulin 2.7 (2-4) g/dL Albumin/Globulin Ratio 1.3 (1-3) TSH 4.76 (0.34-5.60) mcIU/mL 06/07/17 Range/Units 13:33 WBC (3.5-10.8) 10^3/ul RBC (4.0-5.4) 10^6/ul Hgb (12.0-16.0) g/dl Hct (35-47) % MCV (80-97) fL MCH (27-31) pg MCHC (31-36) g/dl RDW (10.5-15) % Plt Count (150-450) 10^3/ul MPV (7.4-10.4) um3 Neut % (Auto) (38-83) % Lymph % (Auto) (25-47) % Rankin % (Auto) (1-9) % Eos % (Auto) (0-6) % Baso % (Auto) (0-2) % Absolute Neuts (auto) (1.5-7.7) 10^3/ul Absolute Lymphs (auto) (1.0-4.8) 10^3/ul Absolute Monos (auto) (0-0.8) 10^3/ul Absolute Eos (auto) (0-0.6) 10^3/ul Absolute Basos (auto) (0-0.2) 10^3/ul Absolute Nucleated RBC 10^3/ul Nucleated RBC % INR (Anticoag Therapy) 0.97 (0.77-1.02) Sodium (133-145) mmol/L Potassium (3.5-5.0) mmol/L Chloride (101-111) mmol/L Carbon Dioxide (22-32) mmol/L Anion Gap (2-11) mmol/L BUN (6-24) mg/dL Creatinine (0.51-0.95) mg/dL Est GFR ( Amer) (>60) Est GFR (Non-Af Amer) (>60) BUN/Creatinine Ratio (8-20) Glucose (70-100) mg/dL Lactic Acid (0.5-2.0) mmol/L Calcium (8.6-10.3) mg/dL Magnesium (1.9-2.7) mg/dL Total Bilirubin (0.2-1.0) mg/dL AST (13-39) U/L ALT (7-52) U/L Alkaline Phosphatase (34-104) U/L Total Creatine Kinase (10-223) U/L Troponin I (<0.04) ng/mL Total Protein (6.4-8.9) g/dL Albumin (3.2-5.2) g/dL Globulin (2-4) g/dL Albumin/Globulin Ratio (1-3) TSH (0.34-5.60) mcIU/mL Microbiology and Other Data: Microbiology 06/07/17 17:15 Influenza Types A,B Antigen ([place]) - Final Nasal Specimen received for Influenza A/B Molecular testing Assess/Plan/Problems-Billing Assessment: 66 y/o female patient presenting with complaints of fall and weakness, concern on daughters part as patient was weak laying on couch and did not know that there was workers in her house fixing a water pipe and patient was not aware patient brought to hospital initially for safety concerns but found to have influenza and demand ischemia - Patient Problems (1) Influenza Current Visit: Yes Status: Acute Priority: High Comment: Tamiflu supportive care (2) Anxiety Current Visit: Yes Status: Acute Priority: High Comment: Continue home medications and supportive care, (3) COPD (chronic obstructive pulmonary disease) Current Visit: Yes Status: Acute Priority: High Comment: Continue home medications, stable, continue prn nebs, (4) CVA (cerebral vascular accident) Current Visit: Yes Status: Acute Priority: High Comment: Discussed with Dr Avila and at this point due to falling and fact that ECHO appears improved , patient has had one month of anticoagulation, given falling will stop a/x given risks, Dr avila to see, continue plavix, (5) DVT prophylaxis Current Visit: Yes Status: Acute Priority: High Comment: heparin sub q (6) Full code status Current Visit: Yes Status: Acute Priority: High Comment: - Full code (7) History of lung cancer Current Visit: Yes Status: Acute Priority: High Comment: Need f/u ct in 6 months, previous ct with small nodule (8) Depression Current Visit: Yes Status: Chronic Priority: High Comment: Continue home medications and supprotive care (9) Hyponatremia Current Visit: Yes Status: Chronic Priority: High Comment: At baseline, follow, (10) CAD (coronary artery disease) Current Visit: Yes Status: Acute Priority: High Comment: Known hx of CAD on recent cath, Noted EKG changes St depression in v4-v5 and down sloping st segment in II and avf, trop .08, suspect demand ischemia from influenza and mild rhabdo, no chest pain, pt cath doen 05/19 with lad lesion patient with signifcant allergy to ASA, patient need desentization to asa which can only be done inpatient setting, dicuss with DR figueroa states to have patient see him after d/c we will have to set this up at d/c, Dr figueroa can be reached at for out patient f/u for now will continue beta plavix, and med management will repeat echo (11) HLD (hyperlipidemia) Current Visit: Yes Status: Acute Priority: High Comment: Lipitor continue (12) Hypertension Current Visit: Yes Status: Chronic Priority: High Comment: Bp this am 94/ 56 will trend especially during acute illness, i have changes BP meds from sustained relsease to immediate release medications (13) Hypothyroidism Current Visit: Yes Status: Chronic Priority: High Code(s): E03.9 - HYPOTHYROIDISM, UNSPECIFIED SNOMED Code(s): 94130079 Comment: Continue levothyroxine. (14) FEN Current Visit: Yes Status: Acute Priority: High Comment: Regular diet (15) Safety awareness deficit Current Visit: Yes Status: Acute Priority: High Comment: Concern on familys part that patient may not be safe at home. I am concerned patient may not be aware of her limitations she has been admitted 9 times [place] jan 2017, Family request psych eval, I am concerned as well for patient capacity, i recommend STR stay, psych to eval capacity Status and Disposition: Inpatient for influenza, psych consult pending neuro consult pending,
[2017-06-08] MEDS ORDERED: Potassium Chlor TAB* 20 MEQ TAB.ER PO ONE (10:10)
[2017-06-08] MEDS: Acetaminophen TAB* 325 MG PO PRN ×2 (11:06→20:31)
[2017-06-08] MEDS: Atorvastatin* 40 MG TAB PO SCH (16:30)
--- NOTE | 2017-06-08 17:20 | ECHO ---
Patient: ELIUD UGALDE [facility] Rec#: [id number] : 1950 Date: 06/08/2017 Age: 66y Height: 152.4 cm / 60.0 in Weight: 41.82 kg / 92.2 lbs Sex: F BSA: 1.34 Room#: 438 Admit Date#: 06/07/2017 Type: Inpatient Referring: Hector Vázquez NP Reading: Kristian Bauer MD Art Handler: Chrissy Pitt RDCS CC: Guerrero Gtz NP Transthoracic Echocardiogram Indication: CAD, elevated troponin levels BP: 100/53 HR: 75 Rhythm: NSR Findings History: COPD, lung cancer s/p ROMAIN lobectomy and chemotherapy, smoker, PFO, HTN, HLD, hypothroidism. This is a LIMITED study to evaluate LV systolic function. Technical Comments: The study quality is good. Completed at 1515. Left Ventricle: The left ventricular chamber size is normal. Global left ventricular wall motion and contractility are within normal limits. There is normal left ventricular systolic function. The estimated ejection fraction is 60-65%. Right Ventricle: The right ventricular cavity size is normal. The right ventricular global systolic function is normal. Conclusions Global left ventricular wall motion and contractility are within normal limits. There is normal left ventricular systolic function. The estimated ejection fraction is 60-65%. Compared to study of 06/01/17, the LV function and wall motion is the same
[2017-06-08] MEDS: Mometasone 220 MCG MDI INH SCH (18:08)
[2017-06-08] MEDS: Albuterol HFA INHALER* 8 gm MDI INH PRN (18:10)
--- NOTE | 2017-06-08 19:50 | CONS ---
CONSULTATION REPORT: DATE OF CONSULT: 06/08/17 ATTENDING CLINICIAN: Hector Vázquez NP CONSULTING PHYSICIAN: Orlando Castaneda MD REASON FOR CONSULT: Determination of capacity, questions of depression. SUBJECTIVE HISTORY: Psychiatry is asked to see this 66-year-old white female with a history of multiple medical comorbidities as well as active and ongoing substance abuse issues due to questions of whether she has the capacity to refuse subacute rehab placement. My understanding is that the patient has been a frequent guest of the hospital and her admissions tally a total of 12 in the year of 2016 and 2 so far in the nascent year of 2017. She was apparently just discharged from the hospital 2 days prior with a plan to take Fioricet for headache. The patient apparently overdosed and took all 10 of her pills stating that she could not get rid of her headache. She became quite confused. This is demonstrated by the fact that it water main broke in her house and in spite of the fact that they were city workers in the residence trying to fix it , she was unaware of their presence lying on the floor and police and Adult Protective Services were called and ultimately brought her back to the hospital. I spoke with the winding department supervisor, Hector Vázquez, nurse practitioner who states that he does not feel that she would be safe returning home and he strongly is encouraging her to accept a placement to subacute rehab ; however, the patient has declined this. I was also told that the patient has a conflicted relationship with her daughter and that her daughter wanted a psychiatric consult due to concerns of substance abuse and depression. Prior to seeing the patient, I did speak with her daughter, Elyssa Glover over the phone. The daughter's report is that the patient does not have clear thinking and seems to have a waxing and waning course of mentation particularly when she overutilizes medications like Seroquel or pain medications. The daughter's further concern is that the patient is not adequately treated for depression. Whereas the patient herself denies neurovegetative symptoms of depression, her daughter Elyssa endorses that her mother displays clear social isolation, unintentional weight loss, lack of energy, lack of concentration and no motivation. The daughter denies that Mrs. Glover has ever been suicidal, but she does assert that the patient has diminishing ability to care for herself. She also notes that the patient has an addictive personality and will often beg nursing staff for additional pain medications. When I meet with the patient, she is pleasant, cooperative, although shows clear signs of age-related hearing loss. The first thing she states as I entered the room is "I am going home no matter what." When I informed her that I have spoken with her daughter she writes her daughter's concerns off stating that the daughter is a "drama lopez. " The patient acknowledges that she is weak and that she needs some help around her household. She does not have a clear memory of the incident involving the water main break. When I asked her about the primary team's recommendations, she claims to be unaware that they are recommending rehab. When I asked her what their concerns may be related to the risks of her not following through with rehab, she denies that there are any risks associated with going home. Again, she denies neurovegetative symptoms associated with depression, although she does state that she has been depressed since the of her first son in 2017. PSYCHIATRIC HISTORY: The patient has no formal history of suicidality. She has no history of psychiatric hospitalizations. She does indicate that she has been depressed since 2006 and I see that she is on 2 psychotropic medications, one is Cymbalta and the other is Seroquel, which are apparently prescribed by her family nurse practitioner, Guerrero Gtz in [place]. The patient denies being a victim of abuse or neglect. She denies history of head trauma, although she does indicate that she has had strokes in the past that impaired her thinking. SUBSTANCE ABUSE HISTORY: She denies alcohol or illicit substance abuse. She does smoke 1 pack of cigarettes per day despite having a history of COPD and lung cancer. She has never been to rehabilitation or AA meetings. I am told that she tends to abuse both benzodiazepines and opioid pain relievers. PAST MEDICAL HISTORY: Significant for: 1. Acute influenza. 2. Hyponatremia. 3. COPD. 4. Lung cancer. 5. History of PFO. 6. Hypertension. 7. Hyperlipidemia. 8. Hypothyroidism. 9. Chronic pain. 10. History of pulmonary embolus. 11. Opiate and benzodiazepine abuse. 12. Coronary artery disease. 13. History of stroke with residual left arm weakness. 14. History of left upper lobe lobectomy. 15. History of heart catheterization. 16. History of tonsillectomy. 17. History of hysterectomy. CURRENT MEDICATIONS: 1. Seroquel 200 to 300 mg at bedtime as needed for confusion or insomnia. 2. Atrovent 0.5 mg inhaled 4 times daily as needed. 3. Gabapentin 300 mg t.i.d. as needed. 4. Protonix 40 mg p.o. b.i.d. 5. Toprol-XL 50 mg daily. 6. Ativan 0.5 mg every 8 hours as needed. 7. Lovenox 40 mg subcutaneously every 12 hours. 8. Diltiazem 120 mg p.o. daily. 9. Tylenol 650 mg every 6 hours as needed. 10. Relafen 750 mg p.o. t.i.d. 11. Cymbalta 60 mg daily. 12. Plavix 75 mg p.o. daily. 13. Flovent 1 puff inhaled b.i.d. 14. Fioricet 1 tablet every 8 hours as needed for headache. 15. Ventolin 2 puffs inhaled every 4 hours. 16. Albuterol 2.5 mg inhaled every 4 hours as needed for wheezing. 17. Synthroid 175 mcg daily. ALLERGIES: She is allergic to ASPIRIN and LATEX. FAMILY HISTORY: She has an older son who in 2016 of suicide and her younger son in 2015 of a head injury attributed to alcohol withdrawal. SOCIAL HISTORY: The patient was to several decades to her before he in 2005. Out of 3 total children, her older two, both boys are now and her youngest is the daughter named Elyssa who is very much involved in her care. 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 At one point, her daughter indicates that she was put on probation, which the daughter believes was associated with substance abuse, but the patient denied this. MENTAL STATUS EXAMINATION: The patient is an aging while female with a contusion over her left eye who is sitting upright in a chair next to her bed. She is calm, cooperative, makes good eye contact. She is clearly hard of hearing. Speech has normal rate, tone and volume. Mood appears to be depressed with a constricted affect. Thought process is linear and goal directed. Thought content is significant for her demand to leave the hospital and go home. She denies suicidal or homicidal ideations. She denies auditory or visual hallucinations. There is no evidence of psychosis. Insight and judgment are poor given her refusal to attend subacute rehab. Cognitively, she is awake and alert. I did submit her to a full Mini-Mental Status Exam, which she scored 29/30 losing only one point for delayed recall. DIAGNOSES: [place] I: Delirium secondary to influenza and medication misuse. Major depressive disorder, recurrent, severe without psychotic features. History of opioid use disorder, and history of benzodiazepine use disorder. [place] II: Deferred. ASSESSMENT: The patient is a 66-year-old white female with a history of multiple medical comorbidities and substance abuse problems who is now on her 14th admission on the medical service since May 2016. Psychiatry is asked to evaluate her for depression as well as her capacity to refuse subacute rehab. Although she is cognitively clear, when I asked her about what the primary team is recommending, she does not display any awareness of this. Additionally, she cannot name any significant risks to refusing subacute rehab. Given her lengthy history and increasingly unsafe behaviors, it would appear that she does not understand the risks, which seem fairly obvious to this clinician. For this reason, I am deeming her to lack capacity currently to make informed medical decisions. Capacity is something that can foreign exchange services manager time and we welcome the primary team to reconsult us in the event of any change in the patient's presentation. RECOMMENDATIONS TO PRIMARY TEAM: We recommend that the patient be kept on Cymbalta 60 mg daily. I would also recommend that the Seroquel be decreased to 100 mg nightly and that it be given as a scheduled nightly medication due to her recent history of delirium. The patient cannot refuse referral to subacute rehab at this time. Psychiatry will be signing off, but can be reconsulted in the event that the patient's treatment course changes in any significant way. [id number]/[facility] #: [id number] MTDD
--- NOTE | 2017-06-08 21:38 | PN ---
Hospitalist Progress Note Date of Service: 06/08/17 Not drop in h and h today this am suspect pt was hemoconcertrated with ivf hydration hgb 8 baseline will repeat in am
[2017-06-09] MEDS: traMADol TAB* 50 MG PO PRN ×2 (00:43→14:12)
[2017-06-09] MEDS: Diltiazem TAB* 30 MG PO SCH ×4 (01:29→17:01)
[2017-06-09] MEDS ORDERED: QUEtiapine TAB* 100 MG PO PRN (02:20)
[2017-06-09] MEDS: Levothyroxine TAB* 175 MCG TAB PO SCH (05:45)
[2017-06-09] MEDS: Heparin VIAL(*) 5000 UNITS/ML VIAL (FIVE THOUSAND) SUBCUT SCH ×3 (05:46→21:26)
[2017-06-09] MEDS: DULoxetine DR CAP* 60 MG CAP.DR PO SCH (08:57)
[2017-06-09] MEDS: Metoprolol Tartrate TAB* 25 MG PO SCH ×2 (08:57→21:27)
[2017-06-09] MEDS: Butalb/Acetamin/Caff TAB* 1 TAB PO PRN ×2 (08:58→17:01)
[2017-06-09] MEDS: Clopidogrel TAB* 75 MG PO SCH (08:58)
[2017-06-09] MEDS: CMCS: Pantoprazole TAB (NF) 40 MG TAB PO SCH ×2 (08:58→21:28)
[2017-06-09] MEDS: Oseltamivir CAP* 30 MG CAP PO SCH ×2 (08:58→21:27)
[2017-06-09 10:19] LABS: ABS Basophils 0 10^3/ul (0-0.2); ABS Eosinophils 0 10^3/ul (0-0.6); ABS Lymphocytes 1.9 10^3/ul (1.0-4.8); ABS Monocytes 0.8 10^3/ul (0-0.8); ABS Neutrophils 4.7 10^3/ul (1.5-7.7); ABS Nucleated RBC 0 10^3/ul; Eosinophil % 0.2 % (0-6); Hematocrit 22 % (35-47); Hemoglobin 7.6 g/dl (12.0-16.0); Lymphocyte % 25.9 % (25-47); Mean Corpuscular HGB Conc 34 g/dl (31-36); Mean Corpuscular Hemoglobin 31 pg (27-31); Mean Corpuscular Volume 92 fL (80-97); Mean Platelet Volume 9 um3 (7.4-10.4); Nucleated Red Blood Cells % 0; Platelet Count 192 10^3/ul (150-450); Red Blood Count 2.43 10^6/ul (4.0-5.4); Red Cell Distribution Width 17 % (10.5-15); White Blood Count 7.5 10^3/ul (3.5-10.8)
--- NOTE | 2017-06-09 10:27 | PN ---
Subjective Date of Service: 06/09/17 Interval History: Patient seen and examined at bedside. Denies fever, chills, shortness of breath , chest discomfort, N/V/D. Pt states that she feels that her left are is becoming weaker. Pt continues to report that she will only go to rehab here at [facility] and will not go to a intermediate. I informed her that the psychiatrist has determined that she is unable to make this decision at this time. Tele: Sinus rhythm, rate 60-70's. Family History: Unchanged from Admission Social History: Unchanged from Admission Past Medical History: Unchanged from Admission Objective Active Medications: Acetaminophen (Tylenol Tab*) 650 mg PO Q4H PRN Reason: FEVER/PAIN Acetaminophen/Butalbital/Caffeine (Fioricet Tab*) 1 tab PO Q8H PRN Reason: HEADACHE Albuterol (Ventolin 2.5 Mg/3 Ml Neb.Tracey*) 2.5 mg INH Q4H PRN Reason: SOB/ WHEEZING Albuterol (Ventolin Hfa Inhaler*) 2 puff INH Q4H PRN Reason: SOB/WHEEZING Atorvastatin Calcium (Lipitor*) 40 mg PO 1700 RAMSES Clopidogrel Bisulfate (Plavix Tab*) 75 mg PO DAILY RAMSES Diltiazem HCl (Cardizem Tab*) 30 mg PO Q6HR RAMSES Duloxetine HCl (Cymbalta Cap*) 60 mg PO DAILY RAMSES Gabapentin (Neurontin Cap(*)) 300 mg PO TID PRN Reason: PAIN Heparin Sodium (Porcine) (Heparin Vial(*)) 5,000 units SUBCUT Q8HR RAMSES Ipratropium [place] (Atrovent 0.5 Mg Neb.Tracey*) 0.5 mg INH QID PRN Reason: SOB/ WHEEZING Levothyroxine Sodium (Synthroid Tab*) 175 mcg PO DAILY@0600 RAMSES Metoprolol Tartrate (Lopressor Tab*) 25 mg PO BID RAMSES Mometasone Furoate (Asmanex 220 Mcg Mdi *) 2 puff INH QPM RAMSES Ondansetron HCl (Zofran Inj*) 4 mg IV Q6H PRN Reason: NAUSEA Oseltamivir Phosphate (Tamiflu Cap*) 30 mg PO BID RAMSES Stop: 06/11/17 21:01 Pantoprazole Sodium (Protonix Tab (Nf)) 40 mg PO BID RAMSES Quetiapine Fumarate (Seroquel Tab*) 100 mg PO BEDTIME RAMSES Tramadol HCl (Ultram*) 25 mg PO Q8H PRN Reason: PAIN Vital Signs - 8 hr 06/09/17 06/09/17 06/09/17 02:43 03:13 05:43 Temperature 98.1 F Pulse Rate 68 81 Respiratory 18 18 Rate Blood Pressure 104/50 95/55 (mmHg) O2 Sat by Pulse 100 Oximetry 06/09/17 06/09/17 06/09/17 08:00 08:49 08:58 Temperature 97.9 F Pulse Rate 65 Respiratory 20 16 20 Rate Blood Pressure 105/55 (mmHg) O2 Sat by Pulse 99 Oximetry Oxygen Devices in Use Now: None Appearance: NAD, laying in bed Ears/Nose/Mouth/Throat: Mucous Membranes Moist Neck: NL Appearance and Movements; NL JVP, Trachea Midline Respiratory: Symmetrical Chest Expansion and Respiratory Effort, Clear to Auscultation Cardiovascular: NL Sounds; No Murmurs; No JVD, RRR Abdominal: NL Sounds; No Tenderness; No Distention Extremities: No Edema Skin: No Rash or Ulcers Neurological: Alert and Oriented x 3, - - Left LE weakness Lines/Tubes/Other Access: Clean, Dry and Intact Peripheral IV - site benign Nutrition: Taking PO's Result Diagrams: 06/09/17 10:05 06/08/17 04:50 Additional Lab and Data: Microbiology and Other Data: Microbiology 06/07/17 17:15 Influenza Types A,B Antigen ([place]) - Final Nasal Specimen received for Influenza A/B Molecular testing Assess/Plan/Problems-Billing Assessment: Ms. Glover is a 66 y/o female patient presenting with complaints of fall and weakness, concern on daughters part as patient was weak laying on couch and did not know that there was workers in her house fixing a water pipe and patient was not aware patient brought to hospital initially for safety concerns but found to have influenza and an elevated troponin suspected to be demand ischemia. - Patient Problems (1) Influenza Code(s): J11.1 - FLU DUE TO UNIDENTIFIED INFLUENZA VIRUS W OTH RESP MANIFEST SNOMED Code(s): 0875970 Comment: - Continue Tamiflu and supportive care (2) Safety awareness deficit Code(s): LBE3085 - SNOMED Code(s): 695799742 Comment: - Concern on familys part that patient may not be safe at home - Concerned patient may not be aware of her limitations she has been admitted 9 times since jan 2017, Family request psych eval, I am concerned as well for patient capacity - Pt will be unable to decline MARY (3) Electrolyte abnormality Code(s): E87.8 - OTH DISORDERS OF ELECTROLYTE AND FLUID BALANCE, NEC SNOMED Code(s): 622567476 Comment: - Hypokalemia - Will give replacement and recheck in the AM (4) CVA (cerebral vascular accident) Code(s): I63.9 - CEREBRAL INFARCTION, UNSPECIFIED SNOMED Code(s): 225224490 Comment: - Recent, ~ 1 month ago - Discussed with Dr Mccauley and at this point due to falling, patient has had one month of anticoagulation, given falling will stop anticoagulant given risks - Neuro consult pending - Continue plavix (5) CAD (coronary artery disease) Code(s): I25.10 - ATHSCL HEART DISEASE OF [place] CORONARY ARTERY W/O ANG PCTRS SNOMED Code(s): 85086804 Comment: - Known hx of CAD on recent cath, Noted EKG changes St depression in v4-v5 and down sloping st segment in II and avf, trop .08, suspect demand ischemia from influenza and mild rhabdo, no chest pain, pt cath done 05/19 with lad lesion patient with signifcant allergy to ASA, patient need desentization to asa which can only be done inpatient setting, dicussed with Dr. Quintanilla states to have patient see him after d/c we will have to set this up at d/c, Dr. Quintanilla can be reached at for out patient f/u - Continue beta plavix, and med management (6) COPD (chronic obstructive pulmonary disease) Code(s): J44.9 - CHRONIC OBSTRUCTIVE PULMONARY DISEASE, UNSPECIFIED SNOMED Code(s): 55426577 Comment: - No signs of exacerbation at this time - Continue home medications and prn nebs (7) Anxiety Code(s): F41.9 - ANXIETY DISORDER, UNSPECIFIED SNOMED Code(s): 26540919 Comment: - Continue home medications and supportive care (8) HLD (hyperlipidemia) Code(s): E78.5 - HYPERLIPIDEMIA, UNSPECIFIED SNOMED Code(s): 46290310 Comment: - Continue Lipitor (9) History of lung cancer Code(s): Z85.118 - PERSONAL HISTORY OF MALIGNANT NEOPLASM OF BRONCHUS AND LUNG SNOMED Code(s): 164655583 Comment: - Need f/u ct in 6 months, previous ct with small nodule (10) Depression Code(s): F32.9 - MAJOR DEPRESSIVE DISORDER, SINGLE EPISODE, UNSPECIFIED SNOMED Code(s): 08990406 Comment: - Continue Cymbalta and supprotive care (11) Hypertension Code(s): I10 - ESSENTIAL (PRIMARY) HYPERTENSION SNOMED Code(s): 25754409 Comment: - SBP 90-100's - Continue Metoprolol and cardizem (12) Hyponatremia Code(s): E87.1 - HYPO-OSMOLALITY AND HYPONATREMIA SNOMED Code(s): 97276710 Comment: - At baseline, will continue to follow (13) Hypothyroidism Code(s): E03.9 - HYPOTHYROIDISM, UNSPECIFIED SNOMED Code(s): 16559898 Comment: - TSH 4.76 - Continue levothyroxine. (14) GERD (gastroesophageal reflux disease) Code(s): K21.9 - GASTRO-ESOPHAGEAL REFLUX DISEASE WITHOUT ESOPHAGITIS SNOMED Code(s): 784017317 Comment: - Continue Protonix BID (15) DVT prophylaxis Code(s): SCE5734 - SNOMED Code(s): 229496516 Comment: - heparin sub q (16) Full code status Code(s): Z78.9 - OTHER SPECIFIED HEALTH STATUS SNOMED Code(s): 018843456 Status and Disposition: Inpatient for influenza and neuro consult pending. Pt will be discharged to subacute rehab.
[2017-06-09 10:32] LABS: EGFR Non-African American 63.7 (>60)
[2017-06-09] MEDS ORDERED: Potassium Chlor TAB* 20 MEQ TAB.ER PO ONE (10:48)
[2017-06-09] MEDS: Acetaminophen TAB* 325 MG PO PRN (15:36)
[2017-06-09] MEDS: Atorvastatin* 40 MG TAB PO SCH (17:01)
[2017-06-09] MEDS: Albuterol HFA INHALER* 8 gm MDI INH PRN (17:02)
[2017-06-09] MEDS: Mometasone 220 MCG MDI INH SCH (17:02)
[2017-06-09] MEDS: Gabapentin CAP(*) 300 MG PO PRN (21:27)
[2017-06-09] MEDS: QUEtiapine TAB* 100 MG PO SCH (21:28)
[2017-06-10] MEDS: Diltiazem TAB* 30 MG PO SCH ×4 (00:48→17:21)
[2017-06-10] MEDS: traMADol TAB* 50 MG PO PRN ×3 (04:25→20:59)
[2017-06-10] MEDS: Butalb/Acetamin/Caff TAB* 1 TAB PO PRN ×3 (05:45→22:28)
[2017-06-10] MEDS: Heparin VIAL(*) 5000 UNITS/ML VIAL (FIVE THOUSAND) SUBCUT SCH ×3 (05:46→21:00)
[2017-06-10] MEDS: Levothyroxine TAB* 175 MCG TAB PO SCH (05:46)
[2017-06-10 06:00] LABS: ABS Basophils 0 10^3/ul (0-0.2); ABS Eosinophils 0 10^3/ul (0-0.6); ABS Lymphocytes 1.9 10^3/ul (1.0-4.8); ABS Monocytes 0.9 10^3/ul (0-0.8); ABS Neutrophils 5.2 10^3/ul (1.5-7.7); ABS Nucleated RBC 0 10^3/ul; Eosinophil % 0.3 % (0-6); Hematocrit 24 % (35-47); Mean Corpuscular HGB Conc 33 g/dl (31-36); Mean Corpuscular Hemoglobin 30 pg (27-31); Mean Corpuscular Volume 92 fL (80-97); Mean Platelet Volume 9 um3 (7.4-10.4); Nucleated Red Blood Cells % 0; Platelet Count 201 10^3/ul (150-450); Red Blood Count 2.64 10^6/ul (4.0-5.4); Red Cell Distribution Width 17 % (10.5-15); White Blood Count 8.1 10^3/ul (3.5-10.8)
[2017-06-10 06:28] LABS: EGFR Non-African American 81.3 (>60)
[2017-06-10] MEDS: DULoxetine DR CAP* 60 MG CAP.DR PO SCH (08:23)
[2017-06-10] MEDS: CMCS: Pantoprazole TAB (NF) 40 MG TAB PO SCH ×2 (08:24→21:06)
[2017-06-10] MEDS: Clopidogrel TAB* 75 MG PO SCH (08:24)
[2017-06-10] MEDS: Metoprolol Tartrate TAB* 25 MG PO SCH ×2 (08:24→21:05)
[2017-06-10] MEDS: Oseltamivir CAP* 30 MG CAP PO SCH ×2 (08:24→21:05)
[2017-06-10] MEDS: Gabapentin CAP(*) 300 MG PO PRN ×2 (08:33→16:32)
[2017-06-10] MEDS: Acetaminophen TAB* 325 MG PO PRN ×2 (08:34→16:32)
--- NOTE | 2017-06-10 10:48 | PN ---
Subjective Date of Service: 06/10/17 Interval History: Patient seen and examined at bedside. Denies fever, chills, shortness of breath (above baseline), chest discomfort, N/V/D. Pt states that she feels "worn out" from the flu. She would really like to go home for a few days prior to discharge. We discussed that she would need to go to rehab from here and that her family is concerned about her safety at home. Family History: Unchanged from Admission Social History: Unchanged from Admission Past Medical History: Unchanged from Admission Objective Active Medications: Acetaminophen (Tylenol Tab*) 650 mg PO Q4H PRN Reason: FEVER/PAIN Acetaminophen/Butalbital/Caffeine (Fioricet Tab*) 1 tab PO Q8H PRN Reason: HEADACHE Albuterol (Ventolin 2.5 Mg/3 Ml Neb.Tracey*) 2.5 mg INH Q4H PRN Reason: SOB/ WHEEZING Albuterol (Ventolin Hfa Inhaler*) 2 puff INH Q4H PRN Reason: SOB/WHEEZING Atorvastatin Calcium (Lipitor*) 40 mg PO 1700 RAMSES Clopidogrel Bisulfate (Plavix Tab*) 75 mg PO DAILY RAMSES Diltiazem HCl (Cardizem Tab*) 30 mg PO Q6HR RAMSES Duloxetine HCl (Cymbalta Cap*) 60 mg PO DAILY RAMSES Gabapentin (Neurontin Cap(*)) 300 mg PO TID PRN Reason: PAIN Heparin Sodium (Porcine) (Heparin Vial(*)) 5,000 units SUBCUT Q8HR RAMSES Ipratropium [place] (Atrovent 0.5 Mg Neb.Tracey*) 0.5 mg INH QID PRN Reason: SOB/ WHEEZING Levothyroxine Sodium (Synthroid Tab*) 175 mcg PO DAILY@0600 RAMSES Metoprolol Tartrate (Lopressor Tab*) 25 mg PO BID RAMSES Mometasone Furoate (Asmanex 220 Mcg Mdi *) 2 puff INH QPM RAMSES Ondansetron HCl (Zofran Inj*) 4 mg IV Q6H PRN Reason: NAUSEA Oseltamivir Phosphate (Tamiflu Cap*) 30 mg PO BID RAMSES Stop: 06/11/17 21:01 Pantoprazole Sodium (Protonix Tab (Nf)) 40 mg PO BID RAMSES Quetiapine Fumarate (Seroquel Tab*) 100 mg PO BEDTIME RAMSES Tramadol HCl (Ultram*) 25 mg PO Q8H PRN Reason: PAIN Vital Signs - 8 hr 06/10/17 06/10/17 06/10/17 03:55 04:25 04:53 Temperature 98.3 F Pulse Rate 72 Respiratory 16 22 18 Rate Blood Pressure 134/68 (mmHg) O2 Sat by Pulse 100 Oximetry 06/10/17 06/10/17 06/10/17 05:45 05:52 06:25 Temperature Pulse Rate 67 Respiratory 22 20 20 Rate Blood Pressure 139/72 (mmHg) O2 Sat by Pulse 100 Oximetry 06/10/17 06/10/17 06/10/17 08:00 08:05 08:26 Temperature 97.8 F Pulse Rate 69 Respiratory 20 20 20 Rate Blood Pressure 117/61 (mmHg) O2 Sat by Pulse 99 Oximetry Oxygen Devices in Use Now: None Appearance: NAD, laying in bed Ears/Nose/Mouth/Throat: Mucous Membranes Moist Respiratory: Symmetrical Chest Expansion and Respiratory Effort, - - Lung sounds with rhonchi bilateral and diminished Cardiovascular: NL Sounds; No Murmurs; No JVD, RRR Abdominal: NL Sounds; No Tenderness; No Distention Extremities: No Edema Skin: No Rash or Ulcers Neurological: Alert and Oriented x 3, NL Muscle Strength and Tone Lines/Tubes/Other Access: Clean, Dry and Intact Peripheral IV - site benign Nutrition: Taking PO's Result Diagrams: 06/10/17 05:44 06/10/17 05:48 Additional Lab and Data: Microbiology and Other Data: Microbiology 06/07/17 17:15 Influenza Types A,B Antigen ([place]) - Final Nasal Specimen received for Influenza A/B Molecular testing Assess/Plan/Problems-Billing Assessment: Ms. Glover is a 66 y/o female patient presenting with complaints of fall and weakness, concern on daughters part as patient was weak laying on couch and did not know that there was workers in her house fixing a water pipe and patient was not aware patient brought to hospital initially for safety concerns but found to have influenza and an elevated troponin suspected to be demand ischemia. - Patient Problems (1) Influenza Code(s): J11.1 - FLU DUE TO UNIDENTIFIED INFLUENZA VIRUS W OTH RESP MANIFEST SNOMED Code(s): 9615133 Comment: - Continue Tamiflu and supportive care (2) Safety awareness deficit Code(s): DPO4279 - SNOMED Code(s): 526259929 Comment: - Concern on familys part that patient may not be safe at home - Concerned patient may not be aware of her limitations she has been admitted 9 times since jan 2017, Family request psych nicol, I am concerned as well for patient capacity - Pt will be unable to decline MARY (3) Electrolyte abnormality Code(s): E87.8 - OTH DISORDERS OF ELECTROLYTE AND FLUID BALANCE, NEC SNOMED Code(s): 233273922 Comment: - Hypokalemia - Resolved (4) Elevated troponin Code(s): R74.8 - ABNORMAL LEVELS OF OTHER SERUM ENZYMES SNOMED Code(s): 663671150 Comment: - Denies chest pain - Suspect secondary to demand ischemia (5) CVA (cerebral vascular accident) Code(s): I63.9 - CEREBRAL INFARCTION, UNSPECIFIED SNOMED Code(s): 316695577 Comment: - Recent, ~ 1 month ago - Discussed with Dr Mccauley and at this point due to falling, patient has had one month of anticoagulation, given falling will stop anticoagulant given risks - Neuro consult pending - Continue plavix (6) CAD (coronary artery disease) Code(s): I25.10 - ATHSCL HEART DISEASE OF [place] CORONARY ARTERY W/O ANG PCTRS SNOMED Code(s): 88302693 Comment: - Known hx of CAD on recent cath, Noted EKG changes St depression in v4-v5 and down sloping st segment in II and avf, trop .08, suspect demand ischemia from influenza and mild rhabdo, no chest pain, pt cath done 05/19 with lad lesion patient with signifcant allergy to ASA, patient need desentization to asa which can only be done inpatient setting, dicussed with Dr. Quintanilla states to have patient see him after d/c we will have to set this up at d/c, Dr. Quintanilla can be reached at for out patient f/u - Continue beta plavix, and med management (7) COPD (chronic obstructive pulmonary disease) Code(s): J44.9 - CHRONIC OBSTRUCTIVE PULMONARY DISEASE, UNSPECIFIED SNOMED Code(s): 13263730 Comment: - No signs of exacerbation at this time - Continue home medications and prn nebs (8) Anxiety Code(s): F41.9 - ANXIETY DISORDER, UNSPECIFIED SNOMED Code(s): 23330020 Comment: - Continue home medications and supportive care (9) HLD (hyperlipidemia) Code(s): E78.5 - HYPERLIPIDEMIA, UNSPECIFIED SNOMED Code(s): 30473579 Comment: - Continue Lipitor (10) History of lung cancer Code(s): Z85.118 - PERSONAL HISTORY OF MALIGNANT NEOPLASM OF BRONCHUS AND LUNG SNOMED Code(s): 592771331 Comment: - Need f/u ct in 6 months, previous ct with small nodule (11) Depression Code(s): F32.9 - MAJOR DEPRESSIVE DISORDER, SINGLE EPISODE, UNSPECIFIED SNOMED Code(s): 80108014 Comment: - Continue Cymbalta and supprotive care (12) Hypertension Code(s): I10 - ESSENTIAL (PRIMARY) HYPERTENSION SNOMED Code(s): 79908807 Comment: - SBP 90-100's - Continue Metoprolol and cardizem (13) Hyponatremia Code(s): E87.1 - HYPO-OSMOLALITY AND HYPONATREMIA SNOMED Code(s): 86475869 Comment: - At baseline, will continue to follow (14) Hypothyroidism Code(s): E03.9 - HYPOTHYROIDISM, UNSPECIFIED SNOMED Code(s): 06284831 Comment: - TSH 4.76 - Continue levothyroxine. (15) GERD (gastroesophageal reflux disease) Code(s): K21.9 - GASTRO-ESOPHAGEAL REFLUX DISEASE WITHOUT ESOPHAGITIS SNOMED Code(s): 962643114 Comment: - Continue Protonix BID (16) DVT prophylaxis Code(s): VQX0627 - SNOMED Code(s): 495570214 Comment: - heparin sub q (17) Full code status Code(s): Z78.9 - OTHER SPECIFIED HEALTH STATUS SNOMED Code(s): 866524313 Status and Disposition: Inpatient for influenza and neuro consult pending. Pt will be discharged to subacute rehab when bed is available.
[2017-06-10] MEDS ORDERED: traMADol TAB* 50 MG PO ONE (11:01)
[2017-06-10] MEDS: Atorvastatin* 40 MG TAB PO SCH (16:32)
[2017-06-10] MEDS: Mometasone 220 MCG MDI INH SCH (18:07)
[2017-06-10] MEDS: QUEtiapine TAB* 100 MG PO SCH (22:46)
[2017-06-11] MEDS: Diltiazem TAB* 30 MG PO SCH ×3 (00:26→12:29)
[2017-06-11] MEDS: Gabapentin CAP(*) 300 MG PO PRN ×2 (04:11→12:29)
[2017-06-11] MEDS: Heparin VIAL(*) 5000 UNITS/ML VIAL (FIVE THOUSAND) SUBCUT SCH ×2 (06:10→14:31)
[2017-06-11] MEDS: Levothyroxine TAB* 175 MCG TAB PO SCH (06:10)
[2017-06-11] MEDS: traMADol TAB* 50 MG PO PRN ×2 (06:17→14:29)
[2017-06-11] MEDS: Clopidogrel TAB* 75 MG PO SCH (08:24)
[2017-06-11] MEDS: DULoxetine DR CAP* 60 MG CAP.DR PO SCH (08:24)
[2017-06-11] MEDS: Oseltamivir CAP* 30 MG CAP PO SCH (08:24)
[2017-06-11] MEDS: Metoprolol Tartrate TAB* 25 MG PO SCH (08:25)
[2017-06-11] MEDS: CMCS: Pantoprazole TAB (NF) 40 MG TAB PO SCH (08:25)
[2017-06-11] MEDS: Butalb/Acetamin/Caff TAB* 1 TAB PO PRN ×2 (08:25→16:38)
[2017-06-11] MEDS: Acetaminophen TAB* 325 MG PO PRN (11:26)
[2017-06-11 12:23] VITALS: BP 147/85
[2017-06-11] MEDS: Albuterol HFA INHALER* 8 gm MDI INH PRN (12:33)
--- NOTE | 2017-06-11 16:03 | DS ---
CC: Guerrero Gtz NP * DISCHARGE SUMMARY: DATE OF ADMISSION: 06/07/17 DATE OF DISCHARGE: 06/11/17 PRIMARY CARE PROVIDER: Guerrero Gtz NP MY ATTENDING WHILE IN HOSPITAL: Dr. Kate Hubbard * (DICTATED BY ALEJANDRO FUNES) CONSULTING PROVIDER: Dr. Orlando Castaneda of Psychiatry. PRIMARY DISCHARGE DIAGNOSES: 1. Influenza A. 2. Fioricet overdose. 3. Inability to care for self at home. 4. Weakness. SECONDARY DISCHARGE DIAGNOSES: 1. Coronary artery disease. 2. Chronic obstructive pulmonary disease. 3. History of lung cancer. 4. History of patent foramen ovale. 5. Hypertension. 6. Hyperlipidemia. 7. Hypothyroidism. 8. Chronic pain. 9. History of pulmonary embolism. 10. History of opiate and benzodiazepine abuse. 11. Anxiety. 12. Previous cerebrovascular accident. STUDIES DONE WHILE IN THE HOSPITAL: Brain CT from 06/07/17 read as new small hypodense area involving the cortex, subcortical white matter, and right parietal lobe, suspicious for nonhemorrhagic infarct. Consider MR imaging for confirmation of chronic sinusitis. This was found to correlate with known infarct present on previous MRI exam. Electrocardiogram from 06/07/17 shows sinus tachycardia, right atrial enlargement, left ventricular hypertrophy, no other ST-segment changes, normal axis, and no other abnormalities. Chest x-ray from 06/07/17 read as stable postsurgical change. No active cardiopulmonary disease. EKG from 06/07/[address]-segment abnormalities except early repolarization in V2, V3, V4. Normal axis, left atrial enlargement, PACs, rate of 94, QTc of 451, normal axis, left ventricular hypertrophy. No other abnormalities. No significant changes from previous exam. EKG on 06/08/17 shows PACs. No other significant changes from previous exam. Transthoracic electrocardiogram from 06/08/17 read as left ventricular wall motion contractility within normal limits. Normal left ventricular ejection fraction greater than 60% to 65%. Same as study compared from 06/01/17. MEDICATIONS AT DISCHARGE: 1. Levothyroxine 175 mcg p.o. daily. 2. Albuterol 2.5 mg inhalation q.4 hours as needed. 3. Albuterol 2 puffs inhalation q.4 hours as needed. 4. Atrovent 0.5 mg inhalation four times a day as needed. 5. Fluticasone 1 puff inhalation b.i.d. 6. Cymbalta 60 mg p.o. daily. 7. Lipitor 40 mg p.o. in the evening. 8. Clopidogrel 75 mg p.o. daily. 9. Relafen 750 mg p.o. t.i.d. 10. Gabapentin 300 mg p.o. t.i.d. 11. Diltiazem CD 120 mg p.o. daily. 12. Metoprolol succinate 50 mg p.o. daily. 13. Protonix 40 mg p.o. b.i.d. 14. Fioricet 1 tab p.o. q.8 hours as needed. 15. Tamiflu 75 mg p.o. b.i.d. x2. 16. Quetiapine 100 mg p.o. at bedtime. 17. Tramadol 25 mg p.o. q.8 hours as needed. Medications discontinued at discharge: 1. Seroquel 200 to 300 mg p.o. at bedtime as needed. 2. Tylenol 650 mg p.o. q.6 hours as needed. 3. Lovenox 40 mg subcutaneous q.12 hours. 4. Lorazepam 0.5 mg p.o. q.8 hours as needed. 5. Warfarin. HOSPITAL COURSE: This is a brief summary of the patient's presentation. For more details, please see the history and physical from Hector Vázquez NP, on 01/15. In brief, the patient is a 66-year-old female with past medical history significant for the above, who has already been to this facility 3 times since the New Year and was here previously 12 times in 2017. The patient was discharged on 06/06/17 with Fioricet for headaches. She was only given 10- tablet supply; however, she took all of these within the first day after her discharge, got weak, lost her balance and fell. She states that she did not pass out; however, she was confused. On exam, the patient had cough, fevers, and chills. No other symptoms. The patient was also hypocalcemic and hypomagnesemic with a slightly elevated troponin. The patient had head trauma but negative CT scan. The patient was admitted to the hospital. Neurology was consulted. She had no new neurological deficits. Her forgetfulness passed as she grew further away from the ingestion of the Fioricet. The patient had no abnormalities with her enzymes. The patient had elevated creatine kinase and potassium of 2.6, which was corrected with repletion. The patient had position influenza A and note, she previously had a negative influenza A 3 days before. The patient's Tylenol level was below 15. The patient did not have a urine drug screen. The patient's AST was 47 on admission, which is only slightly above the reference range with a normal ALT and no other LFT abnormalities. The patient improved from 06/07/17 through 06/08/17. She had nausea and headaches that had been going on since she was previously admitted on 06/06/17. The patient was not hypoxic. The patient had a repeat echo, which was improved. It was decided to stop the patient's anticoagulation due to previous stroke because of her frequent falls. The patient was continued on Plavix. The patient had hyponatremia at baseline. The patient was borderline hypotensive. This improved with time. The patient was seen in consultation by Psychiatry due to her refusal to go to the care home on this and previous admissions, the patient was deemed to not have competence by Dr. Orlando Castaneda of Psychiatry. The patient's Seroquel was decreased due to delirium. The patient was deemed to be somewhat depressed, but already on medication, and she should follow up with her outpatient provider. The patient had drop from 11.3 to 8.8 in her hemoglobin which is only slightly decreased from her baseline and it was believed she was hemoconcentrated on admission. The patient continued to feel to have a flu-like syndrome, but no other complaints, except that she did not want to go to a care home. This was discussed with the patient's daughter and it was decided that she will go to [facility] for subacute rehab on 06/11/17, she was in grudging agreement with. The patient will be discharged to [facility] for subacute rehab. The patient is unsafe to be at home alone at this time. The patient should not be allowed to leave care home before she has another evaluation for competency. PHYSICAL EXAMINATION ON THE DAY OF DISCHARGE: General: The patient is a 66- year- old female with alopecia, who appears stated age and is sitting comfortably in bed, in no acute distress. Vital Signs: At the time of discharge, temperature 98.0, pulse rate 73, respiratory rate 24, oxygen saturation 99% on room air, and blood pressure 147/65. HEENT: Head normocephalic, atraumatic. Alopecia present. Sclerae anicteric. No conjunctival injection. Nasal mucosa moist. The patient has inflamed mucosa and sounds stuffy. No pharyngeal erythema, discharge, or exudate. Neck: Supple, nontender. No lymphadenopathy. No carotid bruit auscultated. Cardiac : Regular rate and rhythm. Grade 2/6 holosystolic murmur heard best at the apex, improved from previous exams. No clicks, gallops, or rubs. Pulses +2 in the bilateral dorsalis pedis, posterior tibialis, and radial areas. Respiratory : Clear to auscultation bilaterally. No wheezing, rales, or rhonchi. Diminished throughout with good air exchange. Abdomen: Soft, nontender, and nondistended. Bowel sounds are present and normoactive in all 4 quadrants. No hepatosplenomegaly. No abdominal bruits auscultated. Genitourinary: No suprapubic tenderness or CVA tenderness. Skin: Clean, dry, and intact. The patient has an area of ecchymosis around her left eye, which appears to be healing. Neuro: Cranial nerves II through XII grossly intact. The patient has no focal deficits. Alert and oriented x3. Psychiatric: The patient is somewhat verbally combative with regards to going to care home and appears anxious but is otherwise pleasant and cooperative. LABORATORY DATA ON THE DAY OF DISCHARGE: White blood cell count 8.1, hemoglobin 8.0, RDW 17, MCH 30, platelet count of 201. Sodium 133, potassium 4.0, chloride 107, carbon dioxide 20, creatinine 0.72, glucose 71, calcium 7.5. DISCHARGE PLAN: The patient will be discharged to [facility] for subacute rehab. As above, the patient should not be allowed to go home and find herself out as she lacks capacity at this time. She should have to be formally reevaluated for capacity before she is allowed to leave. The patient needs close followup for several concerns, firstly being her headaches. The patient has been taking Fioricet and for a continuous headache since her previous admission, the patient might be having medication overuse headache. The patient should be tapered off Fioricet as tolerated. This headache coincided with the onset of her influenza, so this should be attempted after the acute phase of her illness. The patient will be set up with an appointment with Dr. Quintanilla, the chemical mixer, to be desensitized to aspirin if possible which she should then be started on at 325 mg enteric coated p.o. daily. The patient should also follow up with her oncologist, Dr. Cloud, for surveillance of a pulmonary nodule, which should have a repeat CT in 6 months from 05/02/17. The patient should have repeat CBC and BMP in 1 week. The patient should take medications as prescribed. The patient should continue activity as tolerated working with PT and OT. The patient should have heart healthy diet. Caffeine okay. TIME SPENT: Approximately 60 minutes was spent on this discharge, 30 of which was spent [id number] with the patient obtaining history and physical and discussing treatment plan. ALEJANDRO FUNES [id number]/[facility] #: [id number] NICOLE
== END 2017-06-11 17:08 | DRG 194 ==
LOC: ED 13:09 → MEDTELE 15:37
PROVIDERS: ADMIT Internal Medicine; ATTEND Internal Medicine
DX: J10.1 Influenza due to other identified influenza virus with other respiratory manifestations (principal); F33.2 Major depressive disorder, recurrent severe without psychotic features; I95.9 Hypotension, unspecified; E87.1 Hypo-osmolality and hyponatremia; F05 Delirium due to known physiological condition; E83.42 Hypomagnesemia; J44.9 Chronic obstructive pulmonary disease, unspecified; E83.51 Hypocalcemia; Q21.1 Atrial septal defect; M41.9 Scoliosis, unspecified; E03.9 Hypothyroidism, unspecified; E04.9 Nontoxic goiter, unspecified; I10 Essential (primary) hypertension; K21.9 Gastro-esophageal reflux disease without esophagitis; H91.91 Unspecified hearing loss, right ear; G43.909 Migraine, unspecified, not intractable, without status migrainosus; F41.9 Anxiety disorder, unspecified; F17.210 Nicotine dependence, cigarettes, uncomplicated; E78.5 Hyperlipidemia, unspecified; G89.29 Other chronic pain; I25.10 Atherosclerotic heart disease of native coronary artery without angina pectoris; E87.6 Hypokalemia; F11.10 Opioid abuse, uncomplicated; F13.10 Sedative, hypnotic or anxiolytic abuse, uncomplicated; T39.1X1A Poisoning by 4-Aminophenol derivatives, accidental (unintentional), initial encounter; R74.8 Abnormal levels of other serum enzymes; R91.1 Solitary pulmonary nodule; Z81.1 Family history of alcohol abuse and dependence; Z88.8 Allergy status to other drugs, medicaments and biological substances; Z91.040 Latex allergy status; I25.2 Old myocardial infarction; Z90.710 Acquired absence of both cervix and uterus; Z85.118 Personal history of other malignant neoplasm of bronchus and lung; Z92.21 Personal history of antineoplastic chemotherapy; Z86.73 Personal history of transient ischemic attack (TIA), and cerebral infarction without residual deficits; Z82.49 Family history of ischemic heart disease and other diseases of the circulatory system; Z81.8 Family history of other mental and behavioral disorders; Y92.009 Unspecified place in unspecified non-institutional (private) residence as the place of occurrence of the external cause; Z86.711 Personal history of pulmonary embolism; Z79.02 Long term (current) use of antithrombotics/antiplatelets; S05.12XA Contusion of eyeball and orbital tissues, left eye, initial encounter; J32.9 Chronic sinusitis, unspecified; W19.XXXA Unspecified fall, initial encounter; Z91.81 History of falling
CPT/HCPCS: 36415; 70450; 71045; 80048; 80053; 80329; 81003; 81015; 82150; 82550; 83605; 83690; 83735; 84443; 84484; 85025; 85610; 85730; 86140; 87040; 87086; 87502; 93005; 93308; 94640; 96361; 96374; 99283; 99285; A9270-GY; G0378; G0480; J1644; J1650; J2270; J2405; J2765; J3475; J3480

== ENCOUNTER 2017-06-20 21:30 | Emergency (ER) | payer MEDICARE, BC ==
[2017-06-20] MEDS ORDERED: ALPRAZolam TAB* 0.5 MG PO ONE (22:13)
[2017-06-20] MEDS ORDERED: Al Hydrox/Mg Hydrox/Simet LIQ* 30 ML UDC PO ONE (23:17)
[2017-06-20] MEDS ORDERED: Acetaminophen TAB* 325 MG PO ONE (23:52)
[2017-06-21 00:11] VITALS: BP 129/86
--- NOTE | 2017-06-21 07:28 | RAD ---
INDICATION: Shortness of breath. COMPARISON: Comparison is made prior study from June 07, 2017. TECHNIQUE: A portable view of the chest was obtained. The patient is rotated toward the right side. FINDINGS: Cardiac and mediastinal contours appear to be within normal limits. The lungs are clear. No pleural effusion is seen. There are postsurgical changes within the left lung multiple surgical clips project over the left hilar region. IMPRESSION: POSTSURGICAL CHANGES, NO EVIDENCE FOR ACUTE FINDING.
--- NOTE | 2017-06-21 20:39 | ED ---
Aisha Winkler Edward, scribed for Carolina Weber MD on 06/20/17 at 2152 . 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 Pt treated sx with albuterol at around 20:00 tonight. Symptoms not alleviated or aggravated with anything. PMHx anxiety. Associated sx: nausea. - History of Current Complaint Chief Complaint: EDShortnessOfBreath Time Seen by Provider: 06/20/17 21:49 Hx Obtained From: Patient Onset/Duration: Lasting Hours Dyspnea At: Rest Aggrevating Factors: Nothing Alleviating Factors: Nothing - Allergy/Home Medications Allergies/Adverse Reactions: Allergies Allergy/AdvReac Type Severity Reaction Status Date / Time Aspirin Allergy Severe Anaphylatic Verified 06/03/17 22:03 Shock Latex AdvReac Mild Rash Verified 06/03/17 22:03 PMH/Surg Hx/FS Hx/Imm Hx Previously Healthy: No Endocrine/Hematology History: Reports: Hx Thyroid Disease - hypothyroid, Other Endocrine/Hematological Disorders - Benign goiter Denies: Hx Bone Marrow Disease, Hx Diabetes, Hx Systemic Lupus Erythematosus Cardiovascular History: Reports: Hx Angina - pressure, not pain, Hx Hypercholesterolemia - was high before cancer,now off meds., Hx Hypertension, Hx Myocardial Infarction - NSTEMI, Other Cardiovascular Problems/Disorders - patent foramen ovale; Murmur, Denies: Hx Congestive Heart Failure, Hx Coronary Artery Disease, Hx Pacemaker /ICD, Hx Valvular Heart Disease Respiratory History: Reports: Hx Asthma, Hx Chronic Obstructive Pulmonary Disease (COPD), Hx Lung Cancer - Left upper lobectomy, Hx Pneumonia, Other Respiratory Problems/Disorders - lung cancer, LOBECTOMY 09/11/11 GI History: Reports: Hx Gastroesophageal Reflux Disease, Hx Hiatal Hernia, Other GI Disorders - hiatal hernia, colitis. 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, Hx Osteoporosis - Possible, Hx Scoliosis, Other Musculoskeletal History - scoliosis Denies: Hx Rheumatoid Arthritis Sensory History: Reports: Hx Cataracts - PATIENT STATES BEGINING OF CATARACTS LEFT EYE, Hx Contacts or Glasses, Hx Hearing Problem - right Denies: Hx Hearing Aid Opthamlomology History: Reports: Hx Cataracts - PATIENT STATES BEGINING OF CATARACTS LEFT EYE, Hx Contacts or Glasses Neurological History: Reports: Hx CVA - in 05/16, Hx Headaches - frequent h/a's , Hx Migraine - Rare post menopause Psychiatric History: Reports: Hx Anxiety, Hx Depression, Hx Community Mental Health Tx, Hx Substance Abuse - opiods Denies: Hx Panic Disorder, Hx Inpatient Treatment - Cancer History Cancer Type, Location and Year: LUNG CA, DIAGNOSED July 2012 Hx Chemotherapy: Yes Hx Radiation Therapy: No Hx Palliative Cancer Treatment: No - Surgical History Surgery Procedure, Year, and Place: LEFT UPPER LUNG REMOVED 09/2012, HYSTERECTOMY , tonsillectomy Hx Anesthesia Reactions: No - Immunization History Date of Tetanus Vaccine: utd Date of Influenza Vaccine: utd Infectious Disease History: No Infectious Disease History: Denies: Hx of Known/Suspected MRSA, Traveled Outside the [place] in Last 30 Days - Family History Known Family History: Positive: Cardiac Disease - Sudden cardiac arrest (father) , Other - son -- glioblastoma. UC mother. Fhx of colitis. - Social History Alcohol Use: None Hx Substance Use: No Substance Use Type: Reports: Other Substance Use Comment - Amount & Last Used: percocet Hx Tobacco Use: Yes Smoking Status (MU): Heavy Every Day Tobacco Smoker Type: Cigarettes Amount Used/How Often: 1/2 pack a day Length of Time of Smoking/Using Tobacco: 47 years Have You Smoked in the Last Year: Yes Review of Systems Constitutional: Negative Eyes: Negative ENT: Negative Cardiovascular: Negative Positive: Shortness Of Breath Positive: Nausea Genitourinary: Negative Musculoskeletal: Negative Skin: Negative Neurological: Negative Positive: Anxious All Other Systems Reviewed And Are Negative: Yes Physical Exam - Summary Physical Exam Summary: VITAL SIGNS: Reviewed. GENERAL: Patient is a well-developed and nourished female who is lying comfortable in the stretcher. Patient is not in any acute respiratory distress. HEAD AND FACE: No signs of trauma. No ecchymosis, hematomas or skull depressions. No sinus tenderness. EYES: PERRLA, EOMI x 2, No injected conjunctiva, no nystagmus. EARS: Hearing grossly intact. Ear canals and tympanic membranes are within normal limits. MOUTH: Oropharynx within normal limits. NECK: Supple, trachea is midline, no adenopathy, no JVD, no carotid bruit, no c- spine tenderness, neck with full ROM. CHEST: Symmetric, no tenderness at palpation LUNGS: Tachycardic with minimal diffuse breath sounds bilaterally. CVS: Regular rate and rhythm, S1 and S2 present, no murmurs or gallops appreciated. ABDOMEN: Soft, non-tender. No signs of distention. No rebound no guarding, and no masses palpated. Bowel sounds are normal. EXTREMITIES: FROM in all major joints, no edema, no cyanosis or clubbing. NEURO: Alert and oriented x 3. No acute neurological deficits. Speech is normal and follows commands. SKIN: Dry and warm PSYCH: Anxious Triage Information Reviewed: Yes Vital Signs On Initial Exam: Initial Vitals Temp Pulse Resp BP Pulse Ox 98.9 F 50 22 124/93 94 06/20/17 21:34 06/20/17 21:34 06/20/17 21:34 06/20/17 21:34 06/20/17 21:34 Vital Signs Reviewed: Yes Diagnostics - Vital Signs Vital Signs Temp Pulse Resp BP Pulse Ox 06/20/17 21:34 98.9 F 50 22 124/93 94 - Laboratory Lab Statement: Any lab studies that have been ordered have been reviewed, and results considered in the medical decision making process. - Radiology CXR Xray Interpretation: No Acute Changes Radiology Interpretation Completed By: ED Physician Course/Dx - Course Assessment/Plan: Pt known history of anxiety, has been to the ED multiple times for similar symptoms. Pt c/o difficulty breathing. On exam the pt is tachycardic with clear breath sounds. CXR Negative. Pt will be treated with xanax and d/c home. - Diagnoses Provider Diagnoses: Anxiety Discharge - Discharge Plan Condition: Stable Disposition: HOME Patient Education Materials: Anxiety (ED) Referrals: [facility] P[employer] GAUGER [Primary Care Provider] - 4 Days (PLEASE F/U IN 3-5 DAYS) Additional Instructions: PLEASE RETURN TO THE ED FOR RETURN OR WORSENING OF SYMPTOMS The documentation as recorded by the Aisha crawford Edward accurately reflects the service I personally performed and the decisions made by , Carolina Weber MD.
== END 2017-06-21 00:09 | disposition home or self-care (01) ==
LOC: ED 21:30
DX: F41.9 Anxiety disorder, unspecified (principal); F17.210 Nicotine dependence, cigarettes, uncomplicated; K21.9 Gastro-esophageal reflux disease without esophagitis; Z86.73 Personal history of transient ischemic attack (TIA), and cerebral infarction without residual deficits; Z85.118 Personal history of other malignant neoplasm of bronchus and lung
CPT/HCPCS: 71045; 99284; A9270-GY

== ENCOUNTER 2017-06-21 13:02 | Inpatient (IN) | payer MEDICARE, BC ==
[2017-06-21] MEDS ORDERED: NS 0.9% 1000 ML* 1,000 ML IV ONE (14:38)
[2017-06-21] MEDS ORDERED: traMADol TAB* 50 MG PO ONE (14:42)
[2017-06-21 14:56] LABS: ABS Basophils 0.1 10^3/ul (0-0.2); ABS Eosinophils 0 10^3/ul (0-0.6); ABS Lymphocytes 1.3 10^3/ul (1.0-4.8); ABS Monocytes 0.9 10^3/ul (0-0.8); ABS Nucleated RBC 0 10^3/ul; Eosinophil % 0 % (0-6); Hematocrit 22 % (35-47); Hemoglobin 7.5 g/dl (12.0-16.0); Lymphocyte % 15.6 % (25-47); Mean Corpuscular HGB Conc 33 g/dl (31-36); Mean Corpuscular Hemoglobin 30 pg (27-31); Mean Corpuscular Volume 91 fL (80-97); Mean Platelet Volume 8 um3 (7.4-10.4); Nucleated Red Blood Cells % 0; Platelet Count 613 10^3/ul (150-450); Red Blood Count 2.46 10^6/ul (4.0-5.4); Red Cell Distribution Width 17 % (10.5-15); White Blood Count 8.1 10^3/ul (3.5-10.8)
[2017-06-21 15:11] LABS: EGFR Non-African American 41.5 (>60)
[2017-06-21] MEDS ORDERED: Potassium Chlor TAB* 20 MEQ TAB.ER PO ONE (15:15)
[2017-06-21 15:16] LABS: INR 0.98 (0.77-1.02)
--- NOTE | 2017-06-21 16:10 | ED ---
Ashley Winkler Nilda, scribed for Avani Salvador MD on 06/21/17 at 1451 . Complex/Multi-Sys Presentation - HPI Summary HPI Summary: This patient is a 66 year old F BIBA with a chief complaint of generalized weakness, constant diarrhea (black stool), rectal pain, and headache for the past few days. The patient rates the pain 9/10 in severity. Symptoms aggravated and alleviated by nothing. Pt states she has not taken medication for headache today. Patient reports chronic low BP since she had a stroke 6 months ago. She states that she was hospitalized for influenza a few weeks ago and was treated with Tamiflu. She attributes her diarrhea to the Tamiflu treatment. She was not on antibiotics in the hospital. Pt was in [facility] after the hospitalization until 06/18/17 for rehab. Yesterday, pt states she was in ER for anxiety. Medications include Coumadin. PMHx includes CVA (left mid-forearm, 6 months ago) , Lung CA (4 years ago), and Alopecia (since 20 y/o). She states she hasnt had heat in her home for the past few days because when she was hospitalized she ran out of fuel and now cannot get fuel delivered until 06/24/17. - History Of Current Complaint Chief Complaint: EDWeakness Time Seen by Provider: 06/21/17 14:10 Hx Obtained From: Patient Onset/Duration: Sudden Onset, Lasting Days, Still Present Timing: Constant Severity Currently: Severe Severity Initially: Severe Location: Pain At: - headache, rectal Character: Sharp Aggravating Factor(s): nothing Alleviating Factor(s): nothing Associated Signs And Symptoms: Positive: Diarrhea, Melena - dark stool, Other - headache, rectal pain, diarrhea Related History: Recent Hospitalization - 3 weeks ago, DC'd to [facility] rehab, then DC'd home 06/18/17 - Allergies/Home Medications Allergies/Adverse Reactions: Allergies Allergy/AdvReac Type Severity Reaction Status Date / Time Aspirin Allergy Severe Anaphylatic Verified 06/21/17 13:37 Shock Latex AdvReac Mild Rash Verified 06/21/17 13:37 PMH/Surg Hx/FS Hx/Imm Hx Previously Healthy: No Endocrine/Hematology History: Reports: Hx Thyroid Disease - hypothyroid, Other Endocrine/Hematological Disorders - Benign goiter Denies: Hx Bone Marrow Disease, Hx Diabetes, Hx Systemic Lupus Erythematosus Cardiovascular History: Reports: Hx Angina, Hx Hypercholesterolemia - was high before cancer,now off meds., Hx Hypertension, Hx Myocardial Infarction - NSTEMI , Other Cardiovascular Problems/Disorders - patent foramen ovale; Murmur, Denies: Hx Congestive Heart Failure, Hx Coronary Artery Disease, Hx Pacemaker /ICD, Hx Valvular Heart Disease Respiratory History: Reports: Hx Asthma, Hx Chronic Obstructive Pulmonary Disease (COPD), Hx Lung Cancer - Left upper lobectomy, Hx Pneumonia GI History: Reports: Hx Gastroesophageal Reflux Disease, Hx Hiatal Hernia, Other GI Disorders - colitis. History: Denies: Hx Dialysis, Hx Renal Disease Musculoskeletal History: Reports: Hx Back Problems, Hx Osteoporosis, Hx Scoliosis Denies: Hx Rheumatoid Arthritis Sensory History: Reports: Hx Cataracts - PATIENT STATES BEGINING OF CATARACTS LEFT EYE, Hx Contacts or Glasses, Hx Hearing Problem - right Denies: Hx Hearing Aid Opthamlomology History: Reports: Hx Cataracts - PATIENT STATES BEGINING OF CATARACTS LEFT EYE, Hx Contacts or Glasses Neurological History: Reports: Hx CVA - in 05/16, Hx Headaches Psychiatric History: Reports: Hx Anxiety, Hx Depression, Hx Community Mental Health Tx, Hx Substance Abuse - opioids Denies: Hx Panic Disorder, Hx Inpatient Treatment - Cancer History Cancer Type, Location and Year: LUNG CA, DIAGNOSED July 2012 Hx Chemotherapy: Yes Hx Radiation Therapy: No Hx Palliative Cancer Treatment: No - Surgical History Surgery Procedure, Year, and Place: LEFT UPPER LUNG REMOVED 09/2012, HYSTERECTOMY , tonsillectomy Hx Anesthesia Reactions: No - Immunization History Date of Tetanus Vaccine: utd Date of Influenza Vaccine: utd Infectious Disease History: No Infectious Disease History: Denies: Hx of Known/Suspected MRSA, Traveled Outside the [place] in Last 30 Days - Family History Known Family History: Positive: Cardiac Disease - Sudden cardiac arrest (father) , Other - son -- glioblastoma. UC mother. Fhx of colitis. - Social History Alcohol Use: None Hx Substance Use: No Substance Use Type: Reports: Prescribed, Other Substance Use Comment - Amount & Last Used: percocet Hx Tobacco Use: Yes Smoking Status (MU): Heavy Every Day Tobacco Smoker Type: Cigarettes Amount Used/How Often: 1/2 pack a day Length of Time of Smoking/Using Tobacco: 47 years Have You Smoked in the Last Year: Yes Review of Systems Positive: Fatigue Negative: Epistaxis Positive: Other - chronic low BP Respiratory: Negative Positive: Diarrhea - black stool, Other - rectal pain Positive: no symptoms reported Positive: Headache, Weakness - generalized All Other Systems Reviewed And Are Negative: Yes Physical Exam - Summary Physical Exam Summary: Appearance: Chronically ill-appearing, moderate pain distress, thin BP is 61/39 but pt's arm is very thin, and even with child cuff ?accuracy of BP with strong peripheral pulses, and pt in NAD and pt states that her BP has been low since the CVA. BP's are similar in both arms Skin: Warm, color reflects adequate perfusion, total alopecia and pt is wearing wig, redness of buttocks and sacrum, no ulcer Head: Normal Head/Face inspection Eyes: Conjunctiva clear, PERRL EOMI ENT: Normal inspection. moist mucous membranes Neck: Supple, no nodes, no JVD. Respiratory: Lungs clear, Normal breath sounds, no respiratory distress Cardio: Tachycardia, No murmur, pulses normal, brisk capillary refill Abdomen: soft, nontender, no masses Bowel sounds: present Rectal exam: Dark black stool sent for guaiac, no masses, no hemorrhoids, sphincter tone intact, redness skin surrounding rectum and redness of buttocks and sacrum Musculoskeletal: Strength Intact/ ROM intact. No calf tenderness. No edema. Multiple extremity bruises of all diff ages which pt attributes to Lovenox and coumadin. Wearing thumb spica splint (to prevent wrist drop per pt s/p CVA) on left forearm. Neuro: Alert, muscle tone normal, facial symmetry, speech normal, sensory/motor intact, does not appear to have BP in 60's, Psychological: Normal Triage Information Reviewed: Yes Vital Signs On Initial Exam: Initial Vitals Temp Pulse Resp BP Pulse Ox 99 F 118 20 61/39 96 06/21/17 13:28 06/21/17 13:28 06/21/17 13:28 06/21/17 13:28 06/21/17 13:28 Vital Signs Reviewed: Yes Diagnostics - Vital Signs Vital Signs Temp Pulse Resp BP Pulse Ox 06/21/17 13:28 99 F 118 20 61/39 96 - Laboratory Result Diagrams: 06/23/17 14:51 06/22/17 06:16 Lab Statement: Any lab studies that have been ordered have been reviewed, and results considered in the medical decision making process. - EKG 1446 Cardiac Rate: Tachycardia EKG Rhythm: Sinus Tachycardia - 116bpm ST Segment: Non-Specific Ectopy: None EKG Interpretation: nl AVIVCT, nl QTc, nl Sandwich EKG Comparison: No Significant Change - compared with 06/08/17. 1613 Cardiac Rate: NL EKG Rhythm: Sinus Rhythm - [address] Segment: Non-Specific Ectopy: None EKG Interpretation: nl AVIVCT, nl QTc, nl Sandwich Re-Evaluation - Re-Evaluation First Eval Re-Evaluation Time: 14:47 Comment: Reviewed labs, EKG, and imaging with pt. Second Eval Re-Evaluation Time: 15:45 Comment: 119 bpm, BP 58/38. Again, question accuracy of BP, Continue IV fluids. Pt is awake and talking. Pt denies CP. Pt agrees to admission. Complex Multi-Symp Course/Dx Assessment/Plan: This patient is a 66 year old F BIBA with a chief complaint of constant diarrhea (black stool), rectal pain, and headache for the past few days s/p being treated for influenza with Tamiflu a couple weeks ago. Pending labs and EKG. Labs reveal Trop 0.09, Sodium 126, and Potassium 3.2. An EKG reveals sinus tachycardia, 116 bpm, non-specific ST, no ectopy, nl AVIVCT, nl QTc, and nl Sandwich; no significant change compared to 06/08/17. NonSTEMI. A second EKG reveals NSR, 99 bpm, non-specific ST, no ectopy, nl AVIVCT, nl QTc, and nl Sandwich. NonSTEMI. [1535] Dr. Nelson (hospitalist) agrees to admit pt. In the ED course, the patient was given Tramadol and IV fluid. Pt medications reviewed this visit. Allergies noted. Pt is not septic, has no suspected source of infection (influenza resolved). If BP's are credible, and with tachycardia, concern for GI blood loss with diarrhea, dark Guaiac positive stool. However, pt has no abdominal pain. With elevated troponin, pt has no chest pain and EKG x 2 shows no STEMI. Pt's social issue will need to be addressed regarding no heat in her home. account services associate consult requested. The pt is stable and will be admitted with a diagnosis of hypokalemia, hyponatremia, elevated Trop, anemia, guaiac positive stool, weakness, and diarrhea. Pt understands and is agreeable to this plan. - Diagnoses Provider Diagnoses: Hypokalemia, Hyponatremia, Elevated troponin, Anemia, Weakness, Diarrhea, Stool guaiac positive - Physician Notifications Discussed Care Of Patient With: Chad Nelson - Hospitalist Time Discussed With Above Provider: 15:35 Instructed by Provider To: Admit As Inpatient Discharge - Discharge Plan Condition: Stable Disposition: ADMITTED TO [facility] The documentation as recorded by the Ashley crawford Nilda accurately reflects the service I personally performed and the decisions made by , Avani Salvador MD.
[2017-06-21] MEDS ORDERED: Albuterol 2.5 MG/3 ML NEB.SOL* (0.083%) INH PRN (16:32)
--- NOTE | 2017-06-21 16:45 | ADMNOTE ---
Subjective Date of Service: 06/21/17 Interval History: ADMISSION HISTORY AND PHYSICAL EXAM: Allergies Allergy/AdvReac Type Severity Reaction Status Date / Time Aspirin Allergy Severe Anaphylatic Verified 06/21/17 13:37 Shock Latex AdvReac Mild Rash Verified 06/21/17 13:37 Home Medications Medication Instructions Recorded Confirmed Type Levothyroxine TAB* [Synthroid 25 175 mcg PO DAILY 02/09/16 06/21/17 History MCG TAB*] Albuterol 2.5MG/3ML (0.083%)* 2.5 mg INH Q4H PRN 05/03/16 06/21/17 History [Ventolin 2.5 MG/3 ML NEB.ZACHARY*] Albuterol HFA INHALER* [Ventolin 2 puff INH Q4H PRN 05/03/16 06/21/17 History HFA Inhaler*] Ipratropium 0.5MG/2.5ML NEB* 0.5 mg INH QID PRN 05/03/16 06/21/17 History [Atrovent 0.5 MG NEB.ZACHARY*] DULoxetine DR CAP* [Cymbalta CAP*] 60 mg PO DAILY 02/07/17 06/21/17 History Fluticasone HFA 220 mcg(NF) 1 puff INH BID 02/07/17 06/21/17 History [Flovent Hfa 220 Mcg(NF)] Atorvastatin* [Lipitor 40 MG*] 40 mg PO 1700 #30 tab 05/07/17 06/21/17 Rx Clopidogrel TAB* [Plavix TAB*] 75 mg PO DAILY #30 tab 05/07/17 06/21/17 Rx Gabapentin CAP(*) [Neurontin 300 300 mg PO TID PRN 05/17/17 06/21/17 History CAP(*)] Nabumetone TAB* [Relafen TAB*] 750 mg PO TID PRN 05/17/17 06/21/17 History Diltiazem CD CAP* [Cardizem CD 120 mg PO DAILY #30 cap.cd 06/02/17 06/21/17 Rx CAP*] Metoprolol Succinate XL TAB* 50 mg PO DAILY #30 tab.xl 06/02/17 06/21/17 Rx [Toprol XL TAB*] Pantoprazole TAB (NF) [Protonix 40 mg PO BID #60 tab 06/02/17 06/21/17 Rx TAB (NF)] Butalb/Acetamin/Caff TAB* 1 tab PO Q8H PRN 3 Days #10 tab 06/05/17 06/21/17 Rx [Fioricet TAB*] MDD 3 QUEtiapine TAB* [Seroquel TAB*] 100 mg PO BEDTIME tab 06/11/17 06/21/17 Rx traMADol TAB* [Ultram*] 25 mg PO Q8H PRN tab MDD 3 tab 06/11/17 06/21/17 Rx HPI: The patient states she was well at the time of her discharge from [facility] on 06/18/17. However her propane tank at home was empty and her only source of heat in her house was a small electric heater. Today the visiting nurse sent her to the ED due to lack of heat. Propane is delivered to her house on , and there is a $250 surcharge for deliveries on other days. She also states she is having diarrhea 6 times a day, has a poor appetite. She continues to smoke. Family History: Findings - Father had NE, mother had ulcerative colitis. Social History: Findings - Lives alone. SDM is her daughter Elyssa. Smokes, no alcohol use. 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 Review of Systems - Measurements Intake and Output: Intake and Output Last 24 Hours 06/19/17 06/20/17 06/21/17 06/22/17 06:59 06:59 06:59 06:59 Weight 92 lb - Review of Systems Constitutional Symptoms: Positive: Weight Loss, Weakness Dermatology: Positive: Normal HEENT: Positive: Normal Eyes: Positive: Normal Thyroid: Positive: Primary Hypothyroidism Pulmonary: Positive: COPD Cardiology: Positive: Normal Gastroenterology: Positive: Nausea, Vomiting, Diarrhea Genital - Urinary: Positive: Normal Musculoskeletal: Positive: Joint Pain Endocrinology: Positive: Thyroid Problems Hematologic/Lymphatic: Positive: Anemia Neurology: Positive: Headache Psychiatry: Positive: Normal Allergic/Immunologic: Negative: Hx Anaphylaxis, Hx Angioedema, Hx Environmental, Hx Seasonal, Athsma, Hx HIV, Immunocompromise, Swollen Glands LymphNodes, Other Objective Active Medications: Acetaminophen/Butalbital/Caffeine (Fioricet Tab*) 1 tab PO Q8H PRN PRN Reason: HEADACHE Albuterol (Ventolin 2.5 Mg/3 Ml Neb.Zachary*) 2.5 mg INH Q4H PRN PRN Reason: SOB/WHEEZING Atorvastatin Calcium (Lipitor*) 40 mg PO 1700 RAMSES Clopidogrel Bisulfate (Plavix Tab*) 75 mg PO DAILY RAMSES Diltiazem HCl (Cardizem Cd Cap*) 120 mg PO DAILY RAMSES Duloxetine HCl (Cymbalta Cap*) 60 mg PO DAILY RAMSES Fluticasone Propionate (Flovent Hfa 220 Mcg(Nf)) 1 puff INH BID RAMSES Gabapentin (Neurontin Cap(*)) 300 mg PO TID PRN PRN Reason: PAIN Potassium Chloride/Sodium Chloride (Ns 0.9% W/ 20 Meq Kcl 1000 Ml*) 1,000 mls @ 100 mls/hr IV PER RATE RAMSES Levothyroxine Sodium (Synthroid Tab*) 200 mcg PO DAILY@0600 RAMSES Metoprolol Succinate (Toprol Xl Tab*) 50 mg PO DAILY RAMSES Nabumetone (Relafen Tab*) 750 mg PO TID PRN PRN Reason: PAIN - ARTHRITIS Pantoprazole Sodium (Protonix Tab (Nf)) 40 mg PO BID RAMSES Quetiapine Fumarate (Seroquel Tab*) 100 mg PO BEDTIME RAMSES Vital Signs - 8 hr 06/21/17 13:28 Temperature 99 F Pulse Rate 118 Respiratory 20 Rate Blood Pressure 61/39 (mmHg) O2 Sat by Pulse 96 Oximetry Oxygen Devices in Use Now: Nasal Cannula Appearance: Alert, supine on ED stretcher. In good spirits. Looks comfortable. Eyes: No Scleral Icterus Respiratory: Symmetrical Chest Expansion and Respiratory Effort, Clear to Auscultation, Clear to Percussion Cardiovascular: RRR, No Edema, - - 2-3/6 systolic murmur LSB Abdominal: NL Sounds; No Tenderness; No Distention, No Hepatosplenomegaly, - Skin: No Rash or Ulcers, No Nodules or Sclerosis, - Neurological: Alert and Oriented x 3, NL Sensation Result Diagrams: 06/21/17 14:50 06/21/17 14:50 Assess/Plan/Problems-Billing Assessment: - Patient Problems (1) Tobacco abuse Current Visit: No Status: Acute Code(s): Z72.0 - TOBACCO USE SNOMED Code(s ): 628740876 Comment: Pt advised to quit smoking and avoid second hand smoke. She declined nicotine replacement tx. (2) Hypothyroidism Current Visit: No Status: Chronic Priority: High Code(s): E03.9 - HYPOTHYROIDISM, UNSPECIFIED SNOMED Code(s): 79388935 Comment: TSH 11.18 on 06/21/17. Compliance is uncertain. Increase levothyroxine to 200 mcg daily. (3) Gastroenteritis Current Visit: Yes Status: Acute Code(s): K52.9 - NONINFECTIVE GASTROENTERITIS AND COLITIS, UNSPECIFIED SNOMED Code(s): 84045848 Comment: IV fluids with KCL. Received 40 meq KCL po in ED. C.diff PCR requested. BMP 06/22. (4) COPD (chronic obstructive pulmonary disease) Current Visit: No Status: Chronic Code(s): J44.9 - CHRONIC OBSTRUCTIVE PULMONARY DISEASE, UNSPECIFIED SNOMED Code(s): 07046685 Comment: - Continue inhalers and home meds - Currently stable (5) Home environment related disease Current Visit: Yes Status: Acute Code(s): R69 - ILLNESS, UNSPECIFIED SNOMED Code(s): 97787812 Comment: Lack of heat. SW consult requested.
[2017-06-21] MEDS: NS 0.9% w/ 20 Meq KCL 1000 ML* 1,000 ML IV SCH (18:16)
[2017-06-21] MEDS: Atorvastatin* 40 MG TAB PO SCH (18:22)
[2017-06-21] MEDS: Mometasone 220 MCG MDI INH SCH (20:04)
[2017-06-21] MEDS: CMCS:Pantoprazole TAB (NF) 40 MG TAB PO SCH (20:05)
[2017-06-21] MEDS: Butalb/Acetamin/Caff TAB* 1 TAB PO PRN (20:05)
[2017-06-21] MEDS: QUEtiapine TAB* 100 MG PO SCH (20:06)
[2017-06-22] MEDS ORDERED: ALPRAZolam TAB* 0.25 MG PO ONE (02:30)
[2017-06-22] MEDS: Levothyroxine TAB* 100 MCG TAB PO SCH (04:45)
[2017-06-22] MEDS: Butalb/Acetamin/Caff TAB* 1 TAB PO PRN ×3 (04:45→17:53)
[2017-06-22] MEDS: NS 0.9% w/ 20 Meq KCL 1000 ML* 1,000 ML IV SCH (04:50)
[2017-06-22 05:22] LABS: Urine Appearance Clear; Urine Blood 1+ (Negative); Urine Color Yellow; Urine Ketones Negative (Negative); Urine Protein 1+(30 mg/dL) (Negative); Urine Specific Gravity 1.009 (1.010-1.030); Urine Urobilinogen Negative (Negative)
[2017-06-22 06:40] LABS: EGFR Non-African American 48.3 (>60)
[2017-06-22] MEDS ORDERED: Clopidogrel TAB* 75 MG PO SCH (09:00)
[2017-06-22] MEDS ORDERED: Levothyroxine TAB* 25 MCG TAB PO SCH (09:00)
[2017-06-22] MEDS: CMCS:Pantoprazole TAB (NF) 40 MG TAB PO SCH ×2 (09:27→20:49)
[2017-06-22] MEDS: Metoprolol Succinate XL TAB* 50 MG PO SCH (09:27)
[2017-06-22] MEDS: Diltiazem CD CAP* 120 MG PO SCH (09:27)
[2017-06-22] MEDS: DULoxetine DR CAP* 60 MG CAP.DR PO SCH (09:27)
[2017-06-22] MEDS: ALPRAZolam TAB* 0.5 MG PO PRN ×2 (11:44→20:51)
[2017-06-22] MEDS: Atorvastatin* 40 MG TAB PO SCH (17:52)
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
[2017-06-22] MEDS: Mometasone 220 MCG MDI INH SCH (19:59)
[2017-06-22 20:35] LABS: Hematocrit 20 % (35-47); Hemoglobin 6.5 g/dl (12.0-16.0)
[2017-06-22] MEDS: Gabapentin CAP(*) 300 MG PO PRN (20:49)
[2017-06-22] MEDS: QUEtiapine TAB* 100 MG PO SCH (20:51)
--- NOTE | 2017-06-23 03:46 | PN ---
Progress Note - Progress Note Date of Service: 06/23/17 Note: Nursing reports HGB down to 6.5. BP soft, otherwise asymptomatic. Stool occult blood 06/21 was positive. Type & screen. Transfuse 1 unit pRBCs. Trend H&H. Add telemetry.
[2017-06-23] MEDS: Levothyroxine TAB* 100 MCG TAB PO SCH (04:50)
[2017-06-23] MEDS: Butalb/Acetamin/Caff TAB* 1 TAB PO PRN (04:50)
[2017-06-23] MEDS: ALPRAZolam TAB* 0.5 MG PO PRN ×3 (04:51→21:32)
[2017-06-23] MEDS: DULoxetine DR CAP* 60 MG CAP.DR PO SCH (09:47)
[2017-06-23] MEDS: Metoprolol Succinate XL TAB* 50 MG PO SCH (09:47)
[2017-06-23] MEDS: Diltiazem CD CAP* 120 MG PO SCH (09:47)
[2017-06-23] MEDS: CMCS:Pantoprazole TAB (NF) 40 MG TAB PO SCH (09:47)
[2017-06-23] MEDS ORDERED: oxyCODONE TAB* 5 MG TAB PO ONE (09:56)
[2017-06-23] MEDS: Pantoprazole IV* 40 MG IV SCH (11:45)
[2017-06-23 12:33] LABS: Hematocrit 28 % (35-47)
[2017-06-23] MEDS ORDERED: Iodixanol* (CONTRAST) 320 MG/ML 100 ML SDV IV ONE (12:49)
[2017-06-23 12:58] LABS: Monocytes % 8 % (0-13)
[2017-06-23 13:01] LABS: Hematocrit 28 % (35-47); Mean Corpuscular HGB Conc 33 g/dl (31-36); Mean Corpuscular Hemoglobin 31 pg (27-31); Mean Corpuscular Volume 95 fL (80-97); Mean Platelet Volume 8 um3 (7.4-10.4); Platelet Count 546 10^3/ul (150-450); Red Cell Distribution Width 17 % (10.5-15); White Blood Count 12.1 10^3/ul (3.5-10.8)
[2017-06-23] MEDS ORDERED: Butalb/Acetamin/Caff TAB* 1 TAB PO SCH (14:00)
[2017-06-23 14:57] LABS: ABS Basophils 0.1 10^3/ul (0-0.2); ABS Eosinophils 0.1 10^3/ul (0-0.6); ABS Lymphocytes 1.9 10^3/ul (1.0-4.8); ABS Monocytes 1.1 10^3/ul (0-0.8); ABS Neutrophils 4.6 10^3/ul (1.5-7.7); ABS Nucleated RBC 0 10^3/ul; Eosinophil % 0.7 % (0-6); Hematocrit 23 % (35-47); Hemoglobin 7.8 g/dl (12.0-16.0); Lymphocyte % 24.5 % (25-47); Mean Corpuscular HGB Conc 34 g/dl (31-36); Mean Corpuscular Hemoglobin 31 pg (27-31); Mean Corpuscular Volume 93 fL (80-97); Mean Platelet Volume 8 um3 (7.4-10.4); Nucleated Red Blood Cells % 0; Platelet Count 478 10^3/ul (150-450); Red Blood Count 2.52 10^6/ul (4.0-5.4); Red Cell Distribution Width 17 % (10.5-15); White Blood Count 7.8 10^3/ul (3.5-10.8)
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
[2017-06-23] MEDS: Gabapentin CAP(*) 300 MG PO PRN ×2 (16:55→21:31)
[2017-06-23] MEDS: Atorvastatin* 40 MG TAB PO SCH (16:55)
--- NOTE | 2017-06-23 16:57 | RAD ---
Indication: Headaches. History of lung cancer. CT of the brain was performed without and with IV contrast. Ventricular structures are midline. No midline shift is noted. Central and cortical atrophy is noted. There is no evidence of intracranial mass or hemorrhage. Focal hypodensity is noted in the right frontal lobe likely representing old infarct. Postcontrast images demonstrates no evidence of enhancing lesions. Bony calvaria is otherwise unremarkable. Air-fluid level is noted in the left maxillary sinus. IMPRESSION: No intracranial mass or hemorrhage is noted. Air-fluid level in the left maxillary sinus. No abnormally enhancing lesions are identified. Old right frontal lobe infarct.
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
[2017-06-23 18:04] LABS: Hematocrit 25 % (35-47); Hemoglobin 8.3 g/dl (12.0-16.0)
[2017-06-23] MEDS: Mometasone 220 MCG MDI INH SCH (19:49)
[2017-06-23] MEDS: QUEtiapine TAB* 100 MG PO SCH (21:32)
[2017-06-24] MEDS: Levothyroxine TAB* 100 MCG TAB PO SCH (05:39)
[2017-06-24] MEDS: ALPRAZolam TAB* 0.5 MG PO PRN ×2 (05:49→19:44)
[2017-06-24] MEDS: Butalb/Acetamin/Caff TAB* 1 TAB PO PRN ×3 (05:49→22:02)
[2017-06-24 07:30] LABS: ABS Basophils 0.1 10^3/ul (0-0.2); ABS Eosinophils 0.1 10^3/ul (0-0.6); ABS Lymphocytes 1.5 10^3/ul (1.0-4.8); ABS Neutrophils 5.7 10^3/ul (1.5-7.7); ABS Nucleated RBC 0 10^3/ul; Eosinophil % 0.6 % (0-6); Hematocrit 28 % (35-47); Hemoglobin 9.3 g/dl (12.0-16.0); Lymphocyte % 18.3 % (25-47); Mean Corpuscular HGB Conc 34 g/dl (31-36); Mean Corpuscular Hemoglobin 31 pg (27-31); Mean Corpuscular Volume 91 fL (80-97); Mean Platelet Volume 8 um3 (7.4-10.4); Nucleated Red Blood Cells % 0.1; Platelet Count 456 10^3/ul (150-450); Red Blood Count 3.04 10^6/ul (4.0-5.4); Red Cell Distribution Width 17 % (10.5-15); White Blood Count 8.4 10^3/ul (3.5-10.8)
[2017-06-24 08:18] LABS: EGFR Non-African American 82.6 (>60)
[2017-06-24] MEDS: DULoxetine DR CAP* 60 MG CAP.DR PO SCH (10:30)
[2017-06-24] MEDS: Metoprolol Succinate XL TAB* 50 MG PO SCH (10:30)
[2017-06-24] MEDS: Pantoprazole IV* 40 MG IV SCH (10:30)
[2017-06-24] MEDS: Diltiazem CD CAP* 120 MG PO SCH (10:30)
[2017-06-24] MEDS: Gabapentin CAP(*) 300 MG PO PRN ×2 (11:45→16:25)
--- NOTE | 2017-06-24 15:58 | CONS ---
GASTROENTEROLOGY CONSULTATION: DATE OF CONSULT: 06/23/17 HOSPITAL PROVIDER: Josefina Marti DO REASON FOR CONSULT: Anemia, melena. HISTORY OF PRESENT ILLNESS: Ms. Glover is a 66-year-old female with a past medical history of COPD, history of lung cancer, PFO, hypertension, hyperlipidemia, CVA, on Plavix, coronary artery disease, chronic pain, who presented to [facility] with complaints of generalized weakness. The patient was admitted for further evaluation. Through her hospital course, she was noted to become anemic at 6.5 and received 2 units of packed red blood cells. Upon further history, she admitted to having some dark black stool and loose stool since being given Tamiflu for her recent diagnosis of the flu on 01/15. She currently denies any abdominal pain, does admit to chronic reflux symptoms. She did have an upper endoscopy and a colonoscopy approximately 15 years ago. She does not recall her colonoscopy results, but does admit to having a hiatal hernia on her endoscopy. She denies a previous history of anemia. Denies dysphagia at this time and bright red blood per rectum. She denies family history of gastrointestinal malignancies from what she can recall. No history of nausea, vomiting, or hematemesis. Hemoccult was performed and she was fecal occult blood positive and noted to have dark stool on examination. She admits to changes in her weight, however, that occurred approximately 4 years ago after chemotherapy from her diagnosis of lung cancer. It has not since changed. She admits to a good appetite. PAST MEDICAL HISTORY: Anxiety, CVA, on Plavix, chronic hyponatremia, COPD, PFO , hypertension, hyperlipidemia, hypothyroidism, chronic pain, CAD. MEDICATIONS: 1. Fioricet. 2. Albuterol nebulizer. 3. Xanax as needed. 4. Lipitor. 5. Cardizem. 6. Cymbalta. 7. Neurontin. 8. Synthroid. 9. Toprol-XL. 10. Asmanex. 11. Relafen. 12. Protonix. 13. Seroquel. 14. Plavix has been placed on hold due to possible GI bleeding. ALLERGIES: To ASPIRIN, causing anaphylactic shock; LATEX, which is a mild rash. FAMILY HISTORY: Her mother had severe ulcerative colitis and father had an MO. There is no history of gastrointestinal malignancies in the family. SOCIAL HISTORY: She currently lives alone. Her is . She denies tobacco or alcohol use. REVIEW OF SYSTEMS: A 14-point scale had been reviewed, all pertinent positives and negatives have been noted above in the HPI. PHYSICAL EXAM: General: The patient is alert and oriented x3, in no acute distress, resting in bed. HEENT: Normocephalic, atraumatic. Extraocular muscles intact. Moist mucous membranes. Cardiovascular Exam: Regular rate and rhythm. Pulmonary Exam: Clear to auscultation bilaterally. Abdomen: Soft , nontender, nondistended. No rebound, guarding, or rigidity. Extremities: No clubbing, cyanosis, or edema. Neurological exam: Some left arm weakness. Otherwise, no gross focal deficit. LABORATORY DATA: WBC 7.8, hemoglobin 8.3, MCV 93, platelets 478, ESR 35. INR 98, PTT 31.4, D-dimer is 308. Sodium 132, potassium 4.1, chloride 107, CO2 of 19, anion gap 6, BUN 18, creatinine 1.13, calcium 7.6. Percent saturation 14%, iron 52, TIBC 360. Ammonia 25, magnesium 2.3. Ferritin 15.3. Total bilirubin 0.3, AST 17, ALT 10, alkaline phosphatase 53. Total creatine kinase 150. Troponin 0.09. CRP 19.50. BNP 339. Total protein 5.7, albumin 3.1. Triglycerides 164, cholesterol 238, LDL 122, HDL 82.9. Amylase 29, lipase 11. Folate 12.6. Vitamin B12 of 213. Vitamin D25-OH vitamin D total 14.2. Thyroxine 13.24, total T3 0.99. Procalcitonin 0.1. TSH 11.18. Free T4 of 1.10. ASSESSMENT AND PLAN: Jessi Glover is a 66-year-old female with multiple comorbidities including cerebrovascular accident, on Plavix, coronary artery disease, hyperlipidemia, hypertension, chronic hyponatremia, chronic obstructive pulmonary disease, history of lung cancer, status post chemotherapy , who presented to [facility] with generalized weakness. Throughout her hospital course, she was noted to become anemic with hemoglobin of 6.5. Since then, she has been transfused 2 units of packed red blood cells. She also admits to a history of dark stools. Rectal examination in the emergency room revealed fecal occult blood positive and dark stool on examination. Gastroenterology was consulted for further evaluation via an upper endoscopy. 1. Acute blood loss anemia with melena. The patient has been on Plavix therapy for a cerebrovascular accident. She admits to intermittent use of ibuprofen for her chronic migraines. She also admits to dark black stools prior to admission. Her last endoscopy was performed approximately 15 years ago revealing a hiatal hernia. She is in need of an upper endoscopy to rule out peptic ulcer disease. She is currently on Protonix 40 mg once daily and is currently hemodynamically stable. We will make patient NPO after midnight and obtain clarification from Psychiatry on patient's ability to consent for medical procedures. If upper endoscopy is grossly unremarkable, she will need a colonoscopy for further evaluation of her anemia. The patient is in agreement with both upper endoscopy and if needed a colonoscopy in the future. Discussed with Dr. Marti today. Thank you, Dr. Marti, for allowing us to participate in the care of your patient. If you should have any further questions or concerns, please do not hesitate to contact us. [id number]/[facility] #: [id number] NICOLE
[2017-06-24] MEDS: Atorvastatin* 40 MG TAB PO SCH (16:25)
[2017-06-24] MEDS: Nabumetone TAB* 500 MG PO PRN ×2 (16:26→21:12)
--- NOTE | 2017-06-24 18:04 | PN ---
Progress Note - Progress Note Date of Service: 06/24/17 - Gastroenterology Note: Patient seen and examined. No new overnight issues. No melena. Tolerating her diet. No nausea/emesis. Vital Signs: Temp Pulse Resp BP Pulse Ox 97.4 F 77 16 136/70 99 06/24/17 15:17 06/24/17 15:17 06/24/17 16:25 06/24/17 15:17 06/24/17 07:11 GENERAL: NAD. HEENT: MMM. CV: RRR. PULM: CTAB. ABDOMEN: soft, NT/ND. EXTREMITIES: No edema. Laboratory Last Values WBC 8.4 10^3/ul (3.5-10.8) 06/24/17 07:09 RBC 3.04 10^6/ul (4.0-5.4) L 06/24/17 07:09 Hgb 9.3 g/dl (12.0-16.0) L 06/24/17 07:09 Hct 28 % (35-47) L 06/24/17 07:09 MCV 91 fL (80-97) 06/24/17 07:09 MCH 31 pg (27-31) 06/24/17 07:09 MCHC 34 g/dl (31-36) 06/24/17 07:09 RDW 17 % (10.5-15) H 06/24/17 07:09 Plt Count 456 10^3/ul (150-450) H 06/24/17 07:09 MPV 8 um3 (7.4-10.4) 06/24/17 07:09 Neut % (Auto) 67.9 % (38-83) 06/24/17 07:09 Lymph % (Auto) 18.3 % (25-47) L 06/24/17 07:09 [place] % (Auto) 12.1 % (1-9) H 06/24/17 07:09 Eos % (Auto) 0.6 % (0-6) 06/24/17 07:09 Baso % (Auto) 1.1 % (0-2) 06/24/17 07:09 Absolute Neuts (auto) 5.7 10^3/ul (1.5-7.7) 06/24/17 07:09 Absolute Lymphs (auto) 1.5 10^3/ul (1.0-4.8) 06/24/17 07:09 Absolute Monos (auto) 1.0 10^3/ul (0-0.8) H 06/24/17 07:09 Absolute Eos (auto) 0.1 10^3/ul (0-0.6) 06/24/17 07:09 Absolute Basos (auto) 0.1 10^3/ul (0-0.2) 06/24/17 07:09 Absolute Nucleated RBC 0 10^3/ul 06/24/17 07:09 Immature Gran % 1 % (0-9) 06/23/17 09:30 Neutrophils % 71 % (38-83) 06/23/17 09:30 Lymphocytes % 19 % (25-47) L 06/23/17 09:30 Reactive Lymphs % 1 % (0-6) 06/23/17 09:30 Monocytes % 8 % (0-13) 06/23/17 09:30 Eosinophils % 0 % (0-6) 06/23/17 09:30 Basophils % 0 % (0-2) 06/23/17 09:30 Metamyelocytes % 1 % (0-2) 06/23/17 09:30 Nucleated RBC % 0.1 06/24/17 07:09 Abs Neuts (Manual) 8.6 10^3/ul (1.5-7.7) H 06/23/17 09:30 Abs Lymphs (Manual) 2.3 10^3/ul (1.0-4.8) 06/23/17 09:30 Abs Monocytes (Manual) 1.0 10^3/ul (0-0.8) H 06/23/17 09:30 Absolute Eos (Manual) 0 10^3/ul (0-0.6) 06/23/17 09:30 Abs Basophils (Manual) 0 10^3/ul (0-0.2) 06/23/17 09:30 Normal RBC Morphology Not Reportable 06/23/17 09:30 Polychromasia 1+ 06/23/17 09:30 Anisocytosis 1+ 06/23/17 09:30 INR (Anticoag Therapy) 0.98 (0.77-1.02) 06/21/17 14:50 APTT 31.4 seconds (26.0-36.3) 06/21/17 14:50 Sodium 131 mmol/L (133-145) L 06/24/17 07:09 Potassium 4.6 mmol/L (3.5-5.0) 06/24/17 07:09 Chloride 104 mmol/L (101-111) 06/24/17 07:09 Carbon Dioxide 21 mmol/L (22-32) L 06/24/17 07:09 Anion Gap 6 mmol/L (2-11) 06/24/17 07:09 BUN 18 mg/dL (6-24) 06/24/17 07:09 Creatinine 0.71 mg/dL (0.51-0.95) 06/24/17 07:09 Est GFR ( Amer) 106.3 (>60) 06/24/17 07:09 Est GFR (Non-Af Amer) 82.6 (>60) 06/24/17 07:09 BUN/Creatinine Ratio 25.4 (8-20) H 06/24/17 07:09 Glucose 79 mg/dL (70-100) 06/24/17 07:09 Lactic Acid 1.1 mmol/L (0.5-2.0) 06/21/17 14:50 Calcium 8.3 mg/dL (8.6-10.3) L 06/24/17 07:09 Magnesium 1.6 mg/dL (1.9-2.7) L 06/24/17 07:09 Iron 52 ug/dL (50-212) 06/23/17 09:30 TIBC 360 mcg/dL (250-450) 06/23/17 09:30 % Saturation 14 % (15-55) L 06/23/17 09:30 Unsat Iron Binding 308 ug/dL 06/23/17 09:30 Ferritin 15.3 ng/mL (11-307) 06/23/17 09:30 Total Bilirubin 0.30 mg/dL (0.2-1.0) 06/21/17 14:50 AST 17 U/L (13-39) 06/21/17 14:50 ALT 10 U/L (7-52) 06/21/17 14:50 Alkaline Phosphatase 53 U/L (34-104) 06/21/17 14:50 Total Creatine Kinase 150 U/L (10-223) 06/21/17 14:50 Troponin I 0.09 ng/mL (<0.04) H* 06/21/17 14:50 C-Reactive Protein 19.50 mg/L (< 5.00) H 06/21/17 14:50 B-Natriuretic Peptide 339 pg/mL (-100) H 06/21/17 14:50 Total Protein 5.7 g/dL (6.4-8.9) L 06/21/17 14:50 Albumin 3.1 g/dL (3.2-5.2) L 06/21/17 14:50 Globulin 2.6 g/dL (2-4) 06/21/17 14:50 Albumin/Globulin Ratio 1.2 (1-3) 06/21/17 14:50 TSH 11.18 mcIU/mL (0.34-5.60) H 06/21/17 14:50 Urine Color Yellow 06/22/17 05:06 Urine Appearance Clear 06/22/17 05:06 Urine pH 6.0 (5-9) 06/22/17 05:06 Ur Specific [place] 1.009 (1.010-1.030) L 06/22/17 05:06 Urine Protein 1+(30 mg/dl) (Negative) H 06/22/17 05:06 Urine Ketones Negative (Negative) 06/22/17 05:06 Urine Blood 1+ (Negative) H 06/22/17 05:06 Urine Nitrate Negative (Negative) 06/22/17 05:06 Urine Bilirubin Negative (Negative) 06/22/17 05:06 Urine Urobilinogen Negative (Negative) 06/22/17 05:06 Ur Leukocyte Esterase Negative (Negative) 06/22/17 05:06 Urine WBC (Auto) Trace(0-5/hpf) (Absent) 06/22/17 05:06 Urine RBC (Auto) Absent (Absent) 06/22/17 05:06 Ur Squamous Epith Cells Present (Absent) H 06/22/17 05:06 Urine Bacteria Absent (Absent) 06/22/17 05:06 Urine Glucose Negative (Negative) 06/22/17 05:06 Blood Type O Positive 06/21/17 14:50 Antibody Screen Negative 06/21/17 14:50 Crossmatch See Detail 06/21/17 14:50 Transfusion React Rpt Not Reportable 06/23/17 08:49 Donor Unit # [id number] 06/23/17 08:49 Post-Trans Blood Type O Positive 06/23/17 08:49 Post-Trans VERNELL Negative 06/23/17 08:49 Reaction Interpretation 06/23/17 08:49 66 yo female with anxiety and multiple co-morbidities who presented with weakness and noted to anemic with hgb of 6.5 and hx of melena. She is on plavix for hx of CVA and intermittently takes ibuprofen for migraines. GI was consulted for upper endoscopy. 1. Acute blood loss anemia with melena ~s/p prbcs with transfusion reaction. ~Hgb is stable at 9.3 today and no current melena. ~Tolerating diet. ~On PPI daily. ~Clarified with Dr. Marti that patient is able to consent for medical procedures. She is in agreement today for the endoscopy. She unfortunately ate today and thus we will have to preform it tomorrow afternoon. ~NPO after midnight. ~EGD tomorrow. 2. Anxiety/Depression 3. Hx of CVA ~On plavix (on hold after yesterday's morning dose) 4. COPD with tobacco abuse ~On nebs. 5. Hx of lung CA s/p chemo Case was discussed with Dr. Marti and RN. Please call with any questions or concerns. Anya Jay D.O.
--- NOTE | 2017-06-24 18:15 | PN ---
Subjective Date of Service: 06/24/17 Interval History: Upset this morning and declining EGD. No melena or hematochezia, still complains of headache. Family History: Unchanged from Admission - Father had OR, mother had ulcerative colitis. Social History: Unchanged from Admission - Lives alone. SDM is her daughter Elyssa. Smokes, no alcohol use. 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 Objective Active Medications: Acetaminophen/Butalbital/Caffeine (Fioricet Tab*) 1 tab PO Q8HR PRN PRN Reason: HEADACHE Last Admin: 06/24/17 13:55 Dose: 1 tab Albuterol (Ventolin 2.5 Mg/3 Ml Neb.Tracey*) 2.5 mg INH Q4H PRN PRN Reason: SOB/WHEEZING Albuterol (Ventolin Hfa Inhaler*) 2 puff INH Q4H PRN PRN Reason: SOB/WHEEZING Alprazolam (Xanax Tab*) 0.5 mg PO BID PRN PRN Reason: ANXIETY Last Admin: 06/24/17 05:49 Dose: 0.5 mg Atorvastatin Calcium (Lipitor*) 40 mg PO 1700 [facility] Last Admin: 06/24/17 16:25 Dose: 40 mg Diltiazem HCl (Cardizem Cd Cap*) 120 mg PO DAILY [facility] Last Admin: 06/24/17 10:30 Dose: 120 mg Duloxetine HCl (Cymbalta Cap*) 60 mg PO DAILY [facility] Last Admin: 06/24/17 10:30 Dose: 60 mg Gabapentin (Neurontin Cap(*)) 300 mg PO TID PRN PRN Reason: PAIN Last Admin: 06/24/17 16:25 Dose: 300 mg Levothyroxine Sodium (Synthroid Tab*) 200 mcg PO DAILY@0600 [facility] Last Admin: 06/24/17 05:39 Dose: 200 mcg Metoprolol Succinate (Toprol Xl Tab*) 50 mg PO DAILY [facility] Last Admin: 06/24/17 10:30 Dose: 50 mg Mometasone Furoate (Asmanex 220 Mcg Mdi *) 2 puff INH QPM [facility] Last Admin: 06/23/17 19:49 Dose: 2 puff Nabumetone (Relafen Tab*) 750 mg PO TID PRN PRN Reason: PAIN - ARTHRITIS Last Admin: 06/24/17 16:26 Dose: 750 mg Pantoprazole Sodium (Protonix Iv*) 40 mg IV Q24H [facility] Last Admin: 06/24/17 10:30 Dose: 40 mg Quetiapine Fumarate (Seroquel Tab*) 100 mg PO BEDTIME [facility] Last Admin: 06/23/17 21:32 Dose: 100 mg Vital Signs - 8 hr 06/24/17 06/24/17 06/24/17 11:45 13:55 15:17 Temperature 97.4 F Pulse Rate 77 Respiratory 16 16 20 Rate Blood Pressure 136/70 (mmHg) 06/24/17 16:25 Temperature Pulse Rate Respiratory 16 Rate Blood Pressure (mmHg) Oxygen Devices in Use Now: None Appearance: bald, no distress, tangential Eyes: No Scleral Icterus Ears/Nose/Mouth/Throat: NL Teeth, Lips, Gums Neck: NL Appearance and Movements; NL JVP Respiratory: Symmetrical Chest Expansion and Respiratory Effort, Clear to Auscultation Cardiovascular: RRR, - - systolic murmur at the apex Abdominal: NL Sounds; No Tenderness; No Distention Lymphatic: No Cervical Adenopathy Extremities: No Edema Skin: No Rash or Ulcers Neurological: Alert and Oriented x 3 Result Diagrams: 06/24/17 07:09 06/24/17 07:09 Additional Lab and Data: Laboratory Results - last 24 hr 06/22/17 06/22/17 05:06 06:16 Sodium 132 L Potassium 4.1 Chloride 107 Carbon Dioxide 19 L Anion Gap 6 BUN 18 Creatinine 1.13 H Est GFR ( Amer) 62.1 Est GFR (Non-Af Amer) 48.3 BUN/Creatinine Ratio 15.9 Glucose 97 Calcium 7.6 L Urine Color Yellow Urine Appearance Clear Urine pH 6.0 Ur Specific [place] 1.009 L Urine Protein 1+(30 mg/dl) H Urine Ketones Negative Urine Blood 1+ H Urine Nitrate Negative Urine Bilirubin Negative Urine Urobilinogen Negative Ur Leukocyte Esterase Negative Urine WBC (Auto) Trace(0-5/hpf) Urine RBC (Auto) Absent Ur Squamous Epith Cells Present H Urine Bacteria Absent Urine Glucose Negative Microbiology and Other Data: Microbiology 06/22/17 16:15 C. difficile DNA Amplification - Final Stool 027 Presumptive NEGATIVE Toxigenic C.diff NEGATIVE 06/22/17 16:15 Stool Gross Appearance - Final Stool Assess/Plan/Problems-Billing Assessment: 66 yo female high utilizer PMH COPD, lung ca (4y ago), HTN, HLD, CVA with residual left hand weakness, CAD (100% RCA, 60-65%), aspirin allergy with planned desensitization, recent Influenza, anxiety and depression after both sons . Presents due to unsafe home environment 2/2 lack of heat (propane tank out) and desires group home admission until 06/24 delivery. Hyponatremic 126 resolved to 132 after IVF. Frequent headaches since flu. Anemic - Patient Problems (1) Anemia Current Visit: Yes Status: Acute Code(s): D64.9 - ANEMIA, UNSPECIFIED SNOMED Code(s): 332852382 Comment: baseline is 7.5-9.5, yesterday at 6.5, responded to prbcs repeat iron studies Goal Hgb is >8.0 given her CAD FOBT positive, and with an inappropriate response to prbcs. Evaluated by GI, suggested EGD. I discussed this with Ms. Cole and she agrees to have it done tomorrow. Hemodynamically stable. Start protonix 40mg iv daily (2) Home environment related disease Current Visit: Yes Status: Acute Code(s): R69 - ILLNESS, UNSPECIFIED SNOMED Code(s): 26837712 Comment: Admitted to hospital because she ran out of propane. Upon last admission went to [facility] [place] reluctantly after psych eval found was not competent to refuse. Per psych, unable to decline placement upon discharge (3) Electrolyte abnormality Current Visit: No Status: Chronic Code(s): E87.8 - OTH DISORDERS OF ELECTROLYTE AND FLUID BALANCE, NEC SNOMED Code(s): 733550304 Comment: chronic hyponatremia, at baseline. no neurologic effects at this time. (4) Elevated troponin Current Visit: No Status: Acute Code(s): R74.8 - ABNORMAL LEVELS OF OTHER SERUM ENZYMES SNOMED Code(s): 010546030 Comment: no chest pain, with known coronary disease. suspect this was demand due to anemia. EKG shows no active ischemia. (5) CAD (coronary artery disease) Current Visit: No Status: Chronic Priority: High Code(s): I25.10 - ATHSCL HEART DISEASE OF [place] CORONARY ARTERY W/O ANG PCTRS SNOMED Code(s): 63854817 Comment: - Known hx of CAD on recent cath, trop .09, no chest pain, not trended upon admission. pt cath done 05/19 with LAD lesion patient with signifcant allergy to ASA, patient need desentization to asa which can only be done inpatient setting Pt missed appointment 06/[address] Quintanilla , as was not transported from [facility] [place] per pt. - Continue beta plavix, and med management (6) CVA (cerebral vascular accident) Current Visit: No Status: Chronic Priority: High Code(s): I63.9 - CEREBRAL INFARCTION, UNSPECIFIED SNOMED Code(s): 152797447 Comment: - Continue plavix - residual left hand weakness. (7) History of lung cancer Current Visit: No Status: Chronic Priority: High Code(s): Z85.118 - PERSONAL HISTORY OF MALIGNANT NEOPLASM OF BRONCHUS AND LUNG SNOMED Code(s): 271761202 Comment: Need f/u ct in 5 months, previous ct with small nodule (8) Migraine Current Visit: No Status: Chronic Code(s): G43.909 - MIGRAINE, UNSP, NOT INTRACTABLE, WITHOUT STATUS MIGRAINOSUS SNOMED Code(s): 53210180 Comment: fiorcet, tension like in settting of recent influenza. CT head yesterday ruled out subdural hematoma (has had ongoing headache that she reports has gotten worse since she fell last week). I suspect this has no progressed into a medication overuse headache. Taper off fioricet Status and Disposition: medicine, group home admission at this point. [facility] supposedly to home
[2017-06-24] MEDS: QUEtiapine TAB* 100 MG PO SCH (21:12)
[2017-06-24] MEDS: Mometasone 220 MCG MDI INH SCH (22:16)
[2017-06-25] MEDS: Levothyroxine TAB* 100 MCG TAB PO SCH (04:54)
[2017-06-25] MEDS ORDERED: Ketorolac INJ* 30 MG/ML 1 ML VIAL IV PUSH ONE (04:54)
[2017-06-25 07:08] LABS: ABS Basophils 0.1 10^3/ul (0-0.2); ABS Eosinophils 0.1 10^3/ul (0-0.6); ABS Lymphocytes 1.5 10^3/ul (1.0-4.8); ABS Monocytes 1.1 10^3/ul (0-0.8); ABS Neutrophils 3.9 10^3/ul (1.5-7.7); ABS Nucleated RBC 0 10^3/ul; Eosinophil % 0.8 % (0-6); Hematocrit 31 % (35-47); Hemoglobin 10.3 g/dl (12.0-16.0); Lymphocyte % 22.9 % (25-47); Mean Corpuscular HGB Conc 34 g/dl (31-36); Mean Corpuscular Hemoglobin 31 pg (27-31); Mean Corpuscular Volume 91 fL (80-97); Mean Platelet Volume 8 um3 (7.4-10.4); Nucleated Red Blood Cells % 0.1; Platelet Count 451 10^3/ul (150-450); Red Blood Count 3.36 10^6/ul (4.0-5.4); Red Cell Distribution Width 18 % (10.5-15); White Blood Count 6.6 10^3/ul (3.5-10.8)
[2017-06-25 08:03] LABS: EGFR Non-African American 82.6 (>60)
[2017-06-25] MEDS: Diltiazem CD CAP* 120 MG PO SCH (09:32)
[2017-06-25] MEDS: Gabapentin CAP(*) 300 MG PO PRN ×2 (09:32→14:02)
[2017-06-25] MEDS: Metoprolol Succinate XL TAB* 50 MG PO SCH (09:33)
[2017-06-25] MEDS: Butalb/Acetamin/Caff TAB* 1 TAB PO PRN ×2 (09:33→17:27)
[2017-06-25] MEDS: DULoxetine DR CAP* 60 MG CAP.DR PO SCH (09:33)
[2017-06-25] MEDS: ALPRAZolam TAB* 0.5 MG PO PRN ×2 (09:34→19:50)
[2017-06-25] MEDS: Nabumetone TAB* 500 MG PO PRN (09:34)
--- NOTE | 2017-06-25 12:48 | CONSULT ---
Consult Consult: Consult for Medical Decision Making Capacity S: Psychiatry is asked to revisit this 66 y.o. white female with a history of multiple medical comorbidities as well as active and ongoing substance abuse issues due to questions of whether she has capacity to accept endoscopy and related anesthesia . The patient was already seen by psychiatry on June 23 to evaluate her capacity to refuse subacute rehab placement, which she lacked. Subsequently, she has been found to be anemic with suspected blood loss in her upper GI tract, necessitating endoscopy. On exam the patient is aware that she needs to be scoped, explaining "Somehow, I 'm losing blood doc." She understands the risks that endoscopy is associated with the possibility of perforation and that anesthesia has cardiopulmonary risks. O: aging white female with brown wig; dressed in patient gown; calm and cooperative; good eye contact; hard of hearing; speech with normal rate/tone/ volume; mood is euthymic with full affect; thoughts are linear and coherent; denies SI or HI; denies AH/VH or psychotic thoughts; Insight/Judgment are poor/ impaired; Cognitively awake and alert with 29/30 on MMSE (lost one point for delayed recall) A/P: The patient demonstrates capacity for acceptance of endoscopy but continues to lack capacity to refuse subacute rehab. It is not unusual for patients to have capacity for one medical intervention and lack it for others. Please re-consult us in the event that the patient's clinical situation changes.
[2017-06-25] MEDS: Pantoprazole IV* 40 MG IV SCH (14:03)
--- NOTE | 2017-06-25 17:22 | PN ---
Subjective Date of Service: 06/25/17 Interval History: Tearful this morning that she can't have ice chips. She won't accept the egd this afternoon because she doesn't want to wait all day. No melena, hematochezia, abdominal pain, nausea, vomiting Family History: Unchanged from Admission - Father had [place], mother had ulcerative colitis. Social History: Unchanged from Admission - Lives alone. SDM is her daughter Elyssa. Smokes, no alcohol use. 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 Objective Active Medications: Acetaminophen/Butalbital/Caffeine (Fioricet Tab*) 1 tab PO Q8HR PRN PRN Reason: HEADACHE Last Admin: 06/25/17 09:33 Dose: 1 tab Albuterol (Ventolin 2.5 Mg/3 Ml Neb.Tracey*) 2.5 mg INH Q4H PRN PRN Reason: SOB/WHEEZING Albuterol (Ventolin Hfa Inhaler*) 2 puff INH Q4H PRN PRN Reason: SOB/WHEEZING Alprazolam (Xanax Tab*) 0.5 mg PO BID PRN PRN Reason: ANXIETY Last Admin: 06/25/17 09:34 Dose: 0.5 mg Atorvastatin Calcium (Lipitor*) 40 mg PO 1700 [facility] Last Admin: 06/24/17 16:25 Dose: 40 mg Diltiazem HCl (Cardizem Cd Cap*) 120 mg PO DAILY [facility] Last Admin: 06/25/17 09:32 Dose: 120 mg Duloxetine HCl (Cymbalta Cap*) 60 mg PO DAILY [facility] Last Admin: 06/25/17 09:33 Dose: 60 mg Gabapentin (Neurontin Cap(*)) 300 mg PO TID PRN PRN Reason: PAIN Last Admin: 06/25/17 14:02 Dose: 300 mg Lactated Ringer's (Lactated Ringers 1000 Ml Bag*) 1,000 mls @ 125 mls/hr IV PER RATE [facility] Levothyroxine Sodium (Synthroid Tab*) 200 mcg PO DAILY@0600 [facility] Last Admin: 06/25/17 04:54 Dose: Not Given Metoprolol Succinate (Toprol Xl Tab*) 50 mg PO DAILY [facility] Last Admin: 06/25/17 09:33 Dose: 50 mg Mometasone Furoate (Asmanex 220 Mcg Mdi *) 2 puff INH QPM [facility] Last Admin: 06/24/17 22:16 Dose: Not Given Nabumetone (Relafen Tab*) 750 mg PO TID PRN PRN Reason: PAIN - ARTHRITIS Last Admin: 06/25/17 09:34 Dose: 750 mg Pantoprazole Sodium (Protonix Iv*) 40 mg IV Q24H [facility] Last Admin: 06/25/17 14:03 Dose: 40 mg Quetiapine Fumarate (Seroquel Tab*) 100 mg PO BEDTIME [facility] Last Admin: 06/24/17 21:12 Dose: 100 mg Vital Signs - 8 hr 06/25/17 06/25/17 06/25/17 09:32 09:33 09:34 Temperature Pulse Rate Respiratory 18 18 18 Rate Blood Pressure (mmHg) O2 Sat by Pulse Oximetry 06/25/17 06/25/17 06/25/17 13:12 14:02 15:27 Temperature 98.5 F Pulse Rate 86 Respiratory 18 18 18 Rate Blood Pressure 144/77 (mmHg) O2 Sat by Pulse 98 Oximetry 06/25/17 16:40 Temperature Pulse Rate Respiratory 20 Rate Blood Pressure (mmHg) O2 Sat by Pulse Oximetry Oxygen Devices in Use Now: None Appearance: alert, bald female Eyes: No Scleral Icterus Ears/Nose/Mouth/Throat: NL Teeth, Lips, Gums Neck: NL Appearance and Movements; NL JVP Respiratory: Symmetrical Chest Expansion and Respiratory Effort Cardiovascular: NL Sounds; No Murmurs; No JVD, RRR Abdominal: NL Sounds; No Tenderness; No Distention Lymphatic: No Cervical Adenopathy Extremities: No Edema Skin: No Rash or Ulcers Neurological: Alert and Oriented x 3, - Result Diagrams: 06/25/17 06:49 06/25/17 06:49 Additional Lab and Data: Laboratory Results - last 24 hr 06/22/17 06/22/17 05:06 06:16 Sodium 132 L Potassium 4.1 Chloride 107 Carbon Dioxide 19 L Anion Gap 6 BUN 18 Creatinine 1.13 H Est GFR ( Amer) 62.1 Est GFR (Non-Af Amer) 48.3 BUN/Creatinine Ratio 15.9 Glucose 97 Calcium 7.6 L Urine Color Yellow Urine Appearance Clear Urine pH 6.0 Ur Specific [place] 1.009 L Urine Protein 1+(30 mg/dl) H Urine Ketones Negative Urine Blood 1+ H Urine Nitrate Negative Urine Bilirubin Negative Urine Urobilinogen Negative Ur Leukocyte Esterase Negative Urine WBC (Auto) Trace(0-5/hpf) Urine RBC (Auto) Absent Ur Squamous Epith Cells Present H Urine Bacteria Absent Urine Glucose Negative Microbiology and Other Data: Microbiology 06/22/17 16:15 C. difficile DNA Amplification - Final Stool 027 Presumptive NEGATIVE Toxigenic C.diff NEGATIVE 06/22/17 16:15 Stool Gross Appearance - Final Stool Assess/Plan/Problems-Billing Assessment: 66 yo female high utilizer H COPD, lung ca (4y ago), HTN, HLD, CVA with residual left hand weakness, CAD (100% RCA, 60-65%), aspirin allergy who was admitted when her propane tank ran out and was incidentally found to have a hgb of 6.5 with +FOBT. - Patient Problems (1) Anemia Current Visit: Yes Status: Acute Code(s): D64.9 - ANEMIA, UNSPECIFIED SNOMED Code(s): 910423808 Comment: hgb reva was 6.5 responded to prbcs Goal Hgb is >8.0 given her CAD FOBT positive with epigastric pain and recent use of NSAIDS raises suspicion for ulcers, continue protonix Evaluated by GI, suggested EGD. I discussed this with Ms. Cole and she agrees to have it done tomorrow. Hemodynamically stable. (2) Home environment related disease Current Visit: Yes Status: Acute Code(s): R69 - ILLNESS, UNSPECIFIED SNOMED Code(s): 49456384 Comment: Per psych, unable to decline placement upon discharge. Discussed with CM re: placement when ready (3) Electrolyte abnormality Current Visit: No Status: Chronic Code(s): E87.8 - OTH DISORDERS OF ELECTROLYTE AND FLUID BALANCE, NEC SNOMED Code(s): 858625781 Comment: chronic hyponatremia, at baseline. no neurologic effects at this time. (4) Elevated troponin Current Visit: No Status: Acute Code(s): R74.8 - ABNORMAL LEVELS OF OTHER SERUM ENZYMES SNOMED Code(s): 742420154 Comment: no chest pain, with known coronary disease. suspect this was demand due to anemia. EKG shows no active ischemia. (5) CAD (coronary artery disease) Current Visit: No Status: Chronic Priority: High Code(s): I25.10 - ATHSCL HEART DISEASE OF [place] CORONARY ARTERY W/O ANG PCTRS SNOMED Code(s): 18549735 Comment: Known hx of CAD on recent cath, trop .09, no chest pain, not trended upon admission. pt cath done 05/19 with LAD lesion patient with signifcant allergy to ASA, patient need desentization to asa, but unfortunately missed an appt on06/[address] Quintanilla Plavix on hold until EGD evaluates source of bleeding (6) CVA (cerebral vascular accident) Current Visit: No Status: Chronic Priority: High Code(s): I63.9 - CEREBRAL INFARCTION, UNSPECIFIED SNOMED Code(s): 589234952 Comment: Plavix on hold, needs to be resumed after EGD evaluation residual left hand weakness. (7) History of lung cancer Current Visit: No Status: Chronic Priority: High Code(s): Z85.118 - PERSONAL HISTORY OF MALIGNANT NEOPLASM OF [place] AND LUNG SNOMED Code(s): 295319735 Comment: Need f/u ct in 5 months, previous ct with small nodule. Follows with Dr. Cloud (8) Migraine Current Visit: No Status: Chronic Code(s): G43.909 - MIGRAINE, UNSP, NOT INTRACTABLE, WITHOUT STATUS MIGRAINOSUS SNOMED Code(s): 44506631 Comment: has been taking fioricet since last admission. CT head ruled out subdural hematoma (has had ongoing headache that she reports has gotten worse since she fell last week). I suspect this has no progressed into a medication overuse headache. Taper off fioricet Status and Disposition: medicine, snf admission at this point. Propane tank supposedly to home
[2017-06-25] MEDS: Atorvastatin* 40 MG TAB PO SCH (17:28)
[2017-06-25] MEDS: QUEtiapine TAB* 100 MG PO SCH (19:50)
[2017-06-25] MEDS: Mometasone 220 MCG MDI INH SCH (19:55)
--- NOTE | 2017-06-25 20:20 | PN ---
Progress Note - Progress Note Date of Service: 06/25/17 - Gastroenterology Note: Patient seen and examined. Refused to be NPO today. No abdominal pain. No nausea /emesis. No melena/hematochezia. Tolerating general diet. Vital Signs: Temp Pulse Resp BP Pulse Ox 98.0 F 76 16 139/79 97 06/25/17 19:32 06/25/17 19:57 06/25/17 19:57 06/25/17 19:32 06/25/17 19:57 GENERAL: Anxious and tearful HEENT: MMM. CV: RRR. PULM: CTAB ABDOMEN: Soft, NT/ND. +BS. EXTREMITIES: No edema. Laboratory Last Values WBC 6.6 10^3/ul (3.5-10.8) 06/25/17 06:49 RBC 3.36 10^6/ul (4.0-5.4) L 06/25/17 06:49 Hgb 10.3 g/dl (12.0-16.0) L 06/25/17 06:49 Hct 31 % (35-47) L 06/25/17 06:49 MCV 91 fL (80-97) 06/25/17 06:49 MCH 31 pg (27-31) 06/25/17 06:49 MCHC 34 g/dl (31-36) 06/25/17 06:49 RDW 18 % (10.5-15) H 06/25/17 06:49 Plt Count 451 10^3/ul (150-450) H 06/25/17 06:49 MPV 8 um3 (7.4-10.4) 06/25/17 06:49 Neut % (Auto) 59.1 % (38-83) 06/25/17 06:49 Lymph % (Auto) 22.9 % (25-47) L 06/25/17 06:49 Rowan % (Auto) 15.8 % (1-9) H 06/25/17 06:49 Eos % (Auto) 0.8 % (0-6) 06/25/17 06:49 Baso % (Auto) 1.4 % (0-2) 06/25/17 06:49 Absolute Neuts (auto) 3.9 10^3/ul (1.5-7.7) 06/25/17 06:49 Absolute Lymphs (auto) 1.5 10^3/ul (1.0-4.8) 06/25/17 06:49 Absolute Monos (auto) 1.1 10^3/ul (0-0.8) H 06/25/17 06:49 Absolute Eos (auto) 0.1 10^3/ul (0-0.6) 06/25/17 06:49 Absolute Basos (auto) 0.1 10^3/ul (0-0.2) 06/25/17 06:49 Absolute Nucleated RBC 0 10^3/ul 06/25/17 06:49 Immature Gran % 1 % (0-9) 06/23/17 09:30 Neutrophils % 71 % (38-83) 06/23/17 09:30 Lymphocytes % 19 % (25-47) L 06/23/17 09:30 Reactive Lymphs % 1 % (0-6) 06/23/17 09:30 Monocytes % 8 % (0-13) 06/23/17 09:30 Eosinophils % 0 % (0-6) 06/23/17 09:30 Basophils % 0 % (0-2) 06/23/17 09:30 Metamyelocytes % 1 % (0-2) 06/23/17 09:30 Nucleated RBC % 0.1 06/25/17 06:49 Abs Neuts (Manual) 8.6 10^3/ul (1.5-7.7) H 06/23/17 09:30 Abs Lymphs (Manual) 2.3 10^3/ul (1.0-4.8) 06/23/17 09:30 Abs Monocytes (Manual) 1.0 10^3/ul (0-0.8) H 06/23/17 09:30 Absolute Eos (Manual) 0 10^3/ul (0-0.6) 06/23/17 09:30 Abs Basophils (Manual) 0 10^3/ul (0-0.2) 06/23/17 09:30 Normal RBC Morphology Not Reportable 06/23/17 09:30 Polychromasia 1+ 06/23/17 09:30 Anisocytosis 1+ 06/23/17 09:30 INR (Anticoag Therapy) 0.98 (0.77-1.02) 06/21/17 14:50 APTT 31.4 seconds (26.0-36.3) 06/21/17 14:50 Sodium 134 mmol/L (133-145) 06/25/17 06:49 Potassium 4.5 mmol/L (3.5-5.0) 06/25/17 06:49 Chloride 105 mmol/L (101-111) 06/25/17 06:49 Carbon Dioxide 24 mmol/L (22-32) 06/25/17 06:49 Anion Gap 5 mmol/L (2-11) 06/25/17 06:49 BUN 16 mg/dL (6-24) 06/25/17 06:49 Creatinine 0.71 mg/dL (0.51-0.95) 06/25/17 06:49 Est GFR ( Amer) 106.3 (>60) 06/25/17 06:49 Est GFR (Non-Af Amer) 82.6 (>60) 06/25/17 06:49 BUN/Creatinine Ratio 22.5 (8-20) H 06/25/17 06:49 Glucose 71 mg/dL (70-100) 06/25/17 06:49 Lactic Acid 1.1 mmol/L (0.5-2.0) 06/21/17 14:50 Calcium 8.6 mg/dL (8.6-10.3) 06/25/17 06:49 Magnesium 1.6 mg/dL (1.9-2.7) L 06/24/17 07:09 Iron 52 ug/dL (50-212) 06/23/17 09:30 TIBC 360 mcg/dL (250-450) 06/23/17 09:30 % Saturation 14 % (15-55) L 06/23/17 09:30 Unsat Iron Binding 308 ug/dL 06/23/17 09:30 Ferritin 15.3 ng/mL (11-307) 06/23/17 09:30 Total Bilirubin 0.30 mg/dL (0.2-1.0) 06/21/17 14:50 AST 17 U/L (13-39) 06/21/17 14:50 ALT 10 U/L (7-52) 06/21/17 14:50 Alkaline Phosphatase 53 U/L (34-104) 06/21/17 14:50 Total Creatine Kinase 150 U/L (10-223) 06/21/17 14:50 Troponin I 0.09 ng/mL (<0.04) H* 06/21/17 14:50 C-Reactive Protein 19.50 mg/L (< 5.00) H 06/21/17 14:50 B-Natriuretic Peptide 339 pg/mL (-100) H 06/21/17 14:50 Total Protein 5.7 g/dL (6.4-8.9) L 06/21/17 14:50 Albumin 3.1 g/dL (3.2-5.2) L 06/21/17 14:50 Globulin 2.6 g/dL (2-4) 06/21/17 14:50 Albumin/Globulin Ratio 1.2 (1-3) 06/21/17 14:50 TSH 11.18 mcIU/mL (0.34-5.60) H 06/21/17 14:50 Urine Color Yellow 06/22/17 05:06 Urine Appearance Clear 06/22/17 05:06 Urine pH 6.0 (5-9) 06/22/17 05:06 Ur Specific [place] 1.009 (1.010-1.030) L 06/22/17 05:06 Urine Protein 1+(30 mg/dl) (Negative) H 06/22/17 05:06 Urine Ketones Negative (Negative) 06/22/17 05:06 Urine Blood 1+ (Negative) H 06/22/17 05:06 Urine Nitrate Negative (Negative) 06/22/17 05:06 Urine Bilirubin Negative (Negative) 06/22/17 05:06 Urine Urobilinogen Negative (Negative) 06/22/17 05:06 Ur Leukocyte Esterase Negative (Negative) 06/22/17 05:06 Urine WBC (Auto) Trace(0-5/hpf) (Absent) 06/22/17 05:06 Urine RBC (Auto) Absent (Absent) 06/22/17 05:06 Ur Squamous Epith Cells Present (Absent) H 06/22/17 05:06 Urine Bacteria Absent (Absent) 06/22/17 05:06 Urine Glucose Negative (Negative) 06/22/17 05:06 Blood Type O Positive 06/21/17 14:50 Antibody Screen Negative 06/21/17 14:50 Crossmatch See Detail 06/21/17 14:50 Transfusion React Rpt Not Reportable 06/23/17 08:49 Donor Unit # [id number] 06/23/17 08:49 Post-Trans Blood Type O Positive 06/23/17 08:49 Post-Trans VERNELL Negative 06/23/17 08:49 Reaction Interpretation 06/23/17 08:49 66 yo female with anxiety and multiple co-morbidities who presented with weakness and noted to anemic with hgb of 6.5 and hx of melena. She is on plavix for hx of CVA and intermittently takes ibuprofen for migraines. GI was consulted for upper endoscopy. 1. Acute blood loss anemia with melena ~s/p prbcs with transfusion reaction. ~Hgb is stable at 10.3 today and no current melena. ~Tolerating diet. ~On PPI daily. ~Appreciate Psychiatry's clarification: Patient may consent for EGD with MAC only. ~NPO after midnight. ~EGD with MAC tomorrow morning with Dr. Urena. 2. Anxiety/Depression 3. Hx of CVA ~On plavix (has been on hold for 3 days) 4. COPD with tobacco abuse ~On nebs. 5. Hx of lung CA s/p chemo Please call with any questions or concerns. Anya Jay D.O.
[2017-06-26] MEDS: Butalb/Acetamin/Caff TAB* 1 TAB PO PRN ×2 (01:33→09:21)
[2017-06-26] MEDS: Levothyroxine TAB* 100 MCG TAB PO SCH ×2 (04:54→05:46)
[2017-06-26] MEDS: ALPRAZolam TAB* 0.5 MG PO PRN (05:46)
[2017-06-26 07:11] LABS: Hematocrit 29 % (35-47); Hemoglobin 9.8 g/dl (12.0-16.0); Mean Corpuscular HGB Conc 34 g/dl (31-36); Mean Corpuscular Hemoglobin 31 pg (27-31); Mean Corpuscular Volume 91 fL (80-97); Mean Platelet Volume 8 um3 (7.4-10.4); Platelet Count 450 10^3/ul (150-450); Red Blood Count 3.19 10^6/ul (4.0-5.4); Red Cell Distribution Width 17 % (10.5-15); White Blood Count 5.9 10^3/ul (3.5-10.8)
[2017-06-26 07:29] LABS: EGFR Non-African American 78.8 (>60)
[2017-06-26] MEDS ORDERED: fentaNYL* 50 MCG/ML 2 ML VIAL (100 MCG VIAL) ONE (07:46)
[2017-06-26] MEDS ORDERED: Ondansetron INJ* 2 MG/ML VIAL ONE (07:46)
[2017-06-26] MEDS ORDERED: Lidocaine 2% PF * 5 ML VIAL ONE (07:46)
[2017-06-26] MEDS ORDERED: Propofol* 10 MG/ML 20 ML BTL IV PUSH ONE (07:46)
[2017-06-26] MEDS ORDERED: Midazolam* 1 MG/ML 10 ML VIAL (10 MG) ONE (07:46)
[2017-06-26] MEDS: Diltiazem CD CAP* 120 MG PO SCH (09:20)
[2017-06-26] MEDS: Metoprolol Succinate XL TAB* 50 MG PO SCH (09:20)
[2017-06-26] MEDS: DULoxetine DR CAP* 60 MG CAP.DR PO SCH (09:20)
[2017-06-26] MEDS: Pantoprazole IV* 40 MG IV SCH (11:05)
[2017-06-26] MEDS: Nabumetone TAB* 500 MG PO PRN (11:36)
[2017-06-26] MEDS: Albuterol HFA INHALER* 8 gm MDI INH PRN (14:36)
[2017-06-26] MEDS: LORazepam TAB(*) 0.5 MG PO PRN (15:30)
[2017-06-26] MEDS: Gabapentin CAP(*) 300 MG PO PRN ×2 (15:43→20:09)
[2017-06-26] MEDS: Mometasone 220 MCG MDI INH SCH (18:02)
[2017-06-26] MEDS: Atorvastatin* 40 MG TAB PO SCH (18:02)
--- NOTE | 2017-06-26 19:05 | PN ---
Subjective Date of Service: 06/26/17 Interval History: . Interviewed and examined patient at bedside; Discussed case with Dr. Urena after EGD ; Reviewed previous notes and radiology results; EGD showed no active ulcer, but gastritis ; continuing on PPI Pt c/o NELSON, but not severe or intractable - suspect fiorcet should not be taken as much --> will dc here. Patient awaiting placement. . Family History: Unchanged from Admission - Father had [place], mother had ulcerative colitis. Social History: Unchanged from Admission - Lives alone. SDM is her daughter Elyssa. Smokes, no alcohol use. 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 Objective Active Medications: . Albuterol (Ventolin 2.5 Mg/3 Ml Neb.Tracey*) 2.5 mg INH Q4H PRN PRN Reason: SOB/WHEEZING Albuterol (Ventolin Hfa Inhaler*) 2 puff INH Q4H PRN PRN Reason: SOB/WHEEZING Last Admin: 06/26/17 14:36 Dose: 2 puff Atorvastatin Calcium (Lipitor*) 40 mg PO 1700 [facility] Last Admin: 06/26/17 18:02 Dose: 40 mg Clopidogrel Bisulfate (Plavix Tab*) 75 mg PO DAILY [facility] Diltiazem HCl (Cardizem Cd Cap*) 120 mg PO DAILY [facility] Last Admin: 06/26/17 09:20 Dose: 120 mg Duloxetine HCl (Cymbalta Cap*) 60 mg PO DAILY [facility] Last Admin: 06/26/17 09:20 Dose: 60 mg Gabapentin (Neurontin Cap(*)) 300 mg PO TID PRN PRN Reason: PAIN Last Admin: 06/26/17 15:43 Dose: 300 mg Levothyroxine Sodium (Synthroid Tab*) 200 mcg PO DAILY@0600 [facility] Last Admin: 06/26/17 05:46 Dose: 200 mcg Lorazepam (Ativan Tab(*)) 0.5 mg PO BID PRN PRN Reason: ANXIETY Last Admin: 06/26/17 15:30 Dose: 0.5 mg Metoprolol Succinate (Toprol Xl Tab*) 50 mg PO DAILY [facility] Last Admin: 06/26/17 09:20 Dose: 50 mg Mometasone Furoate (Asmanex 220 Mcg Mdi *) 2 puff INH QPM [facility] Last Admin: 06/26/17 18:02 Dose: 2 puff Nabumetone (Relafen Tab*) 750 mg PO TID PRN PRN Reason: PAIN - ARTHRITIS Last Admin: 06/26/17 11:36 Dose: 750 mg Pantoprazole Sodium (Protonix Iv*) 40 mg IV Q24H [facility] Last Admin: 06/26/17 11:05 Dose: 40 mg Quetiapine Fumarate (Seroquel Tab*) 100 mg PO BEDTIME [facility] Last Admin: 06/25/17 19:50 Dose: 100 mg . Vital Signs - 8 hr 06/26/17 06/26/17 06/26/17 11:11 11:57 11:58 Temperature 97.8 F Pulse Rate 98 Respiratory 16 15 15 Rate Blood Pressure 137/67 (mmHg) O2 Sat by Pulse 97 Oximetry 06/26/17 06/26/17 06/26/17 14:48 15:30 15:43 Temperature Pulse Rate 92 Respiratory 18 16 16 Rate Blood Pressure (mmHg) O2 Sat by Pulse 98 Oximetry Oxygen Devices in Use Now: None Appearance: NAD Ears/Nose/Mouth/Throat: NL Teeth, Lips, Gums Neck: NL Appearance and Movements; NL JVP Respiratory: Symmetrical Chest Expansion and Respiratory Effort Cardiovascular: NL Sounds; No Murmurs; No JVD Abdominal: NL Sounds; No Tenderness; No Distention Lymphatic: No Cervical Adenopathy Extremities: No Edema Skin: No Rash or Ulcers Neurological: Alert and Oriented x 3 Lines/Tubes/Other Access: Clean, Dry and Intact Peripheral IV Nutrition: Taking PO's Result Diagrams: 06/27/17 07:43 06/27/17 07:43 Additional Lab and Data: . Microbiology and Other Data: Microbiology 06/22/17 16:15 C. difficile DNA Amplification - Final Stool 027 Presumptive NEGATIVE Toxigenic C.diff NEGATIVE 06/22/17 16:15 Stool Gross Appearance - Final Stool Assess/Plan/Problems-Billing Assessment: 66 yo female high utilizer PMH COPD, lung ca (4y ago), HTN, HLD, CVA with residual left hand weakness, CAD (100% RCA, 60-65%), aspirin allergy who was admitted when her propane tank ran out and was incidentally found to have a hgb of 6.5 with +FOBT. s/p EGD on Jun 26, 2017 showing only gastritis. - Patient Problems (1) Anemia Current Visit: Yes Status: Acute Priority: High Code(s): D64.9 - ANEMIA, UNSPECIFIED Comment: - hgb reva was 6.5 responded to prbcs - Goal Hgb is >8.0 given her CAD - FOBT positive with epigastric pain and recent use of NSAIDS raises suspicion for ulcers, continue protonix - EGD did not show ulcers, but did show gastritis. (2) Home environment related disease Current Visit: Yes Status: Acute Priority: High Code(s): R69 - ILLNESS, UNSPECIFIED Comment: Per psych, unable to decline placement upon discharge. Discussed with CM re: placement when ready (3) Safety awareness deficit Current Visit: No Status: Acute Priority: High Code(s): TOS2407 - Comment: - Concern on family's part that patient may not be safe at home - Concerned patient may not be aware of her limitations she has been admitted 9 times since jan 2017, Family request psych eval, I am concerned as well for patient capacity - Pt will be unable to decline MARY (4) Anxiety Current Visit: No Status: Chronic Priority: High Code(s): F41.9 - ANXIETY DISORDER, UNSPECIFIED Comment: - change xanax to ativan for longer coverage; seems patient does have severe anxiety and shadi llimit beyond this (negotiated) dose. - continue duloxetine 60mg daily. - also on seroquel 100mg qpm - Desires new psychiatrist/counselor; Currently with cyanide case hardener through [facility]. Status and Disposition: .
[2017-06-26] MEDS: QUEtiapine TAB* 100 MG PO SCH (20:10)
--- NOTE | 2017-06-27 00:37 | PRO ---
DATE OF PROCEDURE: 06/26/17 - ROOM #420 PROCEDURE: EGD. INDICATION: Anemia. REFERRING PHYSICIAN: Dr. Marti. MEDICATIONS GIVEN: MAC per Anesthesia. DESCRIPTION OF PROCEDURE: After the EGD procedure including the risks, benefits , and alternatives, not limited to perforation, surgery, and/or were explained to the patient, written consent was then obtained. IV medication was given and a bite-block was placed between the teeth. An Olympus pediatric gastroscope was then inserted into the patient's mouth, advanced down the esophagus, into the stomach, into the distal duodenum. In the esophagus, in the mid esophagus, there were numerous superficial blood vessels. These really did not have the appearance of AVMs; however, could have been. She did have mild erosive esophagitis at the GE junction. There was a small hiatal hernia. The scope was advanced through the hiatal hernia into the body of the stomach. Retroflex and forward views did reveal mild gastritis; however, no active ulcers were seen. Biopsies were obtained. The scope was advanced through a widely patent pylorus, into the duodenal bulb, which did appear slightly [place]ish. Biopsies were obtained from the bulb and the distal duodenum. Scope was withdrawn from the patient. She tolerated the procedure well and was returned to the hospital room in stable condition. IMPRESSION: 1. Complete upper endoscopy into the distal duodenum with biopsies. 2. Esophageal prominent blood vessels. None were actively bleeding right now; however, with her anticoagulation, I do wonder if one of these could have bled. 3. Mild erosive esophagitis, again could have bled with her anticoagulation. 4. Mild gastritis, could have bled with her anticoagulation. I will follow up on all the biopsies. The patient does tell me that she uses ibuprofen on a fairly regular basis. I think this combined with the anticoagulation may be contributing to her anemia. [id number]/[facility] #: [id number] [facility]ENTERMadyson
[2017-06-27] MEDS: Gabapentin CAP(*) 300 MG PO PRN ×2 (03:50→08:25)
[2017-06-27] MEDS: LORazepam TAB(*) 0.5 MG PO PRN ×3 (03:51→21:37)
[2017-06-27] MEDS: Levothyroxine TAB* 100 MCG TAB PO SCH (05:59)
[2017-06-27 08:08] LABS: ABS Basophils 0.1 10^3/ul (0-0.2); ABS Eosinophils 0.1 10^3/ul (0-0.6); ABS Lymphocytes 1.3 10^3/ul (1.0-4.8); ABS Monocytes 0.8 10^3/ul (0-0.8); ABS Neutrophils 3.8 10^3/ul (1.5-7.7); ABS Nucleated RBC 0 10^3/ul; Eosinophil % 1.1 % (0-6); Hematocrit 29 % (35-47); Hemoglobin 9.4 g/dl (12.0-16.0); Lymphocyte % 21.6 % (25-47); Mean Corpuscular HGB Conc 33 g/dl (31-36); Mean Corpuscular Hemoglobin 30 pg (27-31); Mean Corpuscular Volume 92 fL (80-97); Mean Platelet Volume 8 um3 (7.4-10.4); Nucleated Red Blood Cells % 0.1; Platelet Count 417 10^3/ul (150-450); Red Blood Count 3.09 10^6/ul (4.0-5.4); Red Cell Distribution Width 17 % (10.5-15); White Blood Count 6.1 10^3/ul (3.5-10.8)
[2017-06-27 08:19] LABS: EGFR Non-African American 75.2 (>60)
[2017-06-27] MEDS: Metoprolol Succinate XL TAB* 50 MG PO SCH (08:25)
[2017-06-27] MEDS: Diltiazem CD CAP* 120 MG PO SCH (08:26)
[2017-06-27] MEDS: Clopidogrel TAB* 75 MG PO SCH (08:26)
[2017-06-27] MEDS: DULoxetine DR CAP* 60 MG CAP.DR PO SCH (08:26)
[2017-06-27] MEDS: oxyCODONE/Acetamin 5/325 MG* TAB PO PRN ×2 (10:42→17:58)
--- NOTE | 2017-06-27 10:56 | PN ---
Subjective Date of Service: 06/27/17 Interval History: . No new sx, though she states her NELSON is too severe and is impeding her ability to sleep. I agreed to short term percocet - max 3 doses per day - to assist in her transition off fiorcet. Estimate 2-3 days of support. Family History: Unchanged from Admission - Father had IA, mother had ulcerative colitis. Social History: Unchanged from Admission - Lives alone. SDM is her daughter Elyssa. Smokes, no alcohol use. 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 Objective Active Medications: . Albuterol (Ventolin 2.5 Mg/3 Ml Neb.Tracey*) 2.5 mg INH Q4H PRN PRN Reason: SOB/WHEEZING Albuterol (Ventolin Hfa Inhaler*) 2 puff INH Q4H PRN PRN Reason: SOB/WHEEZING Last Admin: 06/26/17 14:36 Dose: 2 puff Atorvastatin Calcium (Lipitor*) 40 mg PO 1700 [facility] Last Admin: 06/26/17 18:02 Dose: 40 mg Clopidogrel Bisulfate (Plavix Tab*) 75 mg PO DAILY [facility] Last Admin: 06/27/17 08:26 Dose: 75 mg Diltiazem HCl (Cardizem Cd Cap*) 120 mg PO DAILY [facility] Last Admin: 06/27/17 08:26 Dose: 120 mg Duloxetine HCl (Cymbalta Cap*) 60 mg PO DAILY [facility] Last Admin: 06/27/17 08:26 Dose: 60 mg Gabapentin (Neurontin Cap(*)) 300 mg PO TID PRN PRN Reason: PAIN Last Admin: 06/27/17 08:25 Dose: 300 mg Levothyroxine Sodium (Synthroid Tab*) 200 mcg PO DAILY@0600 [facility] Last Admin: 06/27/17 05:59 Dose: 200 mcg Lorazepam (Ativan Tab(*)) 0.5 mg PO BID PRN PRN Reason: ANXIETY Last Admin: 06/27/17 08:26 Dose: 0.5 mg Metoprolol Succinate (Toprol Xl Tab*) 50 mg PO DAILY [facility] Last Admin: 06/27/17 08:25 Dose: 50 mg Mometasone Furoate (Asmanex 220 Mcg Mdi *) 2 puff INH QPM [facility] Last Admin: 06/26/17 18:02 Dose: 2 puff Nabumetone (Relafen Tab*) 750 mg PO TID PRN PRN Reason: PAIN - ARTHRITIS Last Admin: 06/26/17 11:36 Dose: 750 mg Oxycodone/Acetaminophen (Percocet 5/325 Tab*) 1 tab PO Q6H PRN PRN Reason: PAIN Last Admin: 06/27/17 10:42 Dose: 1 tab Pantoprazole Sodium (Protonix Iv*) 40 mg IV Q24H [facility] Last Admin: 06/26/17 11:05 Dose: 40 mg Quetiapine Fumarate (Seroquel Tab*) 100 mg PO BEDTIME [facility] Last Admin: 06/26/17 20:10 Dose: 100 mg . Vital Signs - 8 hr 06/27/17 06/27/17 06/27/17 03:39 03:50 03:51 Temperature 97.9 F Pulse Rate 63 Respiratory 16 18 18 Rate Blood Pressure 145/73 (mmHg) O2 Sat by Pulse 100 Oximetry 06/27/17 06/27/17 06/27/17 06:00 06:01 07:18 Temperature 98.0 F Pulse Rate 75 Respiratory 16 16 16 Rate Blood Pressure 163/91 (mmHg) O2 Sat by Pulse 100 Oximetry Oxygen Devices in Use Now: None Appearance: NAD; alopecia. Eyes: No Scleral Icterus Ears/Nose/Mouth/Throat: Clear Oropharnyx, Mucous Membranes Moist Neck: NL Appearance and Movements; NL JVP Respiratory: Symmetrical Chest Expansion and Respiratory Effort Cardiovascular: NL Sounds; No Murmurs; No JVD Abdominal: NL Sounds; No Tenderness; No Distention Lymphatic: No Cervical Adenopathy Extremities: No Edema Skin: No Rash or Ulcers Neurological: Alert and Oriented x 3 - but very poor insight into overall living difficulties as previously described Lines/Tubes/Other Access: Clean, Dry and Intact Peripheral IV Result Diagrams: 06/27/17 07:43 06/27/17 07:43 Additional Lab and Data: . Microbiology and Other Data: Microbiology 06/22/17 16:15 C. difficile DNA Amplification - Final Stool 027 Presumptive NEGATIVE Toxigenic C.diff NEGATIVE 06/22/17 16:15 Stool Gross Appearance - Final Stool Assess/Plan/Problems-Billing . Assessment: 66 yo female high utilizer PMH COPD, lung ca (4y ago), HTN, HLD, CVA with residual left hand weakness, CAD (100% RCA, 60-65%), aspirin allergy who was admitted when her propane tank ran out and was incidentally found to have a hgb of 6.5 with +FOBT. s/p EGD on Jun 26, 2017 showing only gastritis. Ongoing NELSON, off fiorcet, starting Percocet (5/325) TID PRN PAIN for 2-3 days to assist in fiorcet withdrawal pain. - Patient Problems (1) Anemia Current Visit: Yes Status: Acute Priority: High Code(s): D64.9 - ANEMIA, UNSPECIFIED Comment: - hgb reva was 6.5 responded to prbcs, hgb now > 9 - Goal Hgb is >8.0 given her CAD - FOBT positive with epigastric pain and recent use of NSAIDS raises suspicion for ulcers, continue protonix -- EGD did not show ulcers, but did show gastritis. (2) Home environment related disease Current Visit: Yes Status: Acute Priority: High Code(s): R69 - ILLNESS, UNSPECIFIED Comment: Per psych: unable to decline placement upon discharge. Discussed with CM re: placement when ready (3) Safety awareness deficit Current Visit: No Status: Acute Priority: High Code(s): [id number] - Comment: - Concern on family's part that patient may not be safe at home - Concerned patient may not be aware of her limitations she has been admitted 9 times since jan 2017, Family request psych eval, that was done and patient not capable of refusing placement / MARY (4) Anxiety Current Visit: No Status: Chronic Priority: High Code(s): F41.9 - ANXIETY DISORDER, UNSPECIFIED Comment: - change xanax to ativan for longer coverage; seems patient does have severe anxiety and shadi llimit beyond this (negotiated) dose. - continue duloxetine 60mg daily. - also on seroquel 100mg qpm - Desires new psychiatrist/counselor; Currently with test case developer through [facility]. (5) Chronic headache Current Visit: Yes Status: Chronic Priority: Medium Code(s): R51 - HEADACHE Comment: - Fiorcet dc'd 2/2 misuse - transition off with percocet - max TID, prn, only 2-3 days. - then, reduce frequency or use only tylenol Status and Disposition: .
[2017-06-27] MEDS: Pantoprazole IV* 40 MG IV SCH (11:42)
[2017-06-27] MEDS: Mometasone 220 MCG MDI INH SCH (16:59)
[2017-06-27] MEDS: Albuterol HFA INHALER* 8 gm MDI INH PRN (17:01)
[2017-06-27] MEDS: Atorvastatin* 40 MG TAB PO SCH (17:58)
[2017-06-27] MEDS: QUEtiapine TAB* 100 MG PO SCH (21:37)
[2017-06-28] MEDS: oxyCODONE/Acetamin 5/325 MG* TAB PO PRN ×3 (01:33→13:45)
[2017-06-28] MEDS: Levothyroxine TAB* 100 MCG TAB PO SCH (05:07)
[2017-06-28] MEDS: Nabumetone TAB* 500 MG PO PRN (05:10)
[2017-06-28] MEDS: Diltiazem CD CAP* 120 MG PO SCH (07:33)
[2017-06-28] MEDS: Metoprolol Succinate XL TAB* 50 MG PO SCH (07:33)
[2017-06-28] MEDS: Clopidogrel TAB* 75 MG PO SCH (07:33)
[2017-06-28] MEDS: DULoxetine DR CAP* 60 MG CAP.DR PO SCH (07:36)
[2017-06-28] MEDS: Pantoprazole IV* 40 MG IV SCH (10:14)
[2017-06-28] MEDS: LORazepam TAB(*) 0.5 MG PO PRN (10:14)
--- NOTE | 2017-06-28 15:10 | DS ---
CC: Dr. Anya Jay; Dr. Nimco Cloud; Guerrero Gtz NP * DATE OF ADMISSION: 06/21/2017. DATE OF DISCHARGE: 06/28/2017. PRIMARY CARE PROVIDER: Guerrero Gtz NP. PRINCIPAL DISCHARGE DIAGNOSIS: Blood loss anemia/occult GI bleed. SECONDARY DISCHARGE DIAGNOSES: 1. Gastritis. 2. Migraine headaches. 3. Medication overuse headaches. 4. History of small cell lung cancer. 5. COPD. 6. Hypothyroidism. 7. Anxiety. 8. Coronary artery disease. 9. History of CVA. DISCHARGE MEDICATIONS: 1. Protonix 40 mg b.i.d. 2. Levothyroxine 175 mcg daily. 3. Albuterol inhaler prn. 4. Flovent one puff b.i.d. 5. Duloxetine 60 mg daily. 6. Atorvastatin 40 mg daily. 7. Plavix 75 mg daily. 8. Relafen 750 mg t.i.d. prn. 9. Gabapentin 300 mg t.i.d. 10. Diltiazem 120 mg daily. 11. Metoprolol XL 50 mg daily. 12. Seroquel 100 mg nightly. 13. Tramadol 25 mg q.8 prn. PHYSICAL EXAMINATION: On the day of discharge: General: Alert, bald, well- appearing female in no distress. Vital Signs: Temperature 98.5, heart rate 65 , respiratory rate 18, pulse ox 99 percent on room air, blood pressure 138/81. HEENT: Pupils equal, round and reactive to light. Moist mucosa. Neck: No cervical adenopathy, no JVP. Chest: Regular rate and rhythm. Pansystolic murmur at the apex with radiation throughout, no rubs. Lungs: Clear bilaterally. Abdomen: Soft, nontender, nondistended. No guarding or rebound. Extremities: No edema. No rashes. No ulcers. HOSPITAL COURSE BY PROBLEM: 1. Occult GI bleed: This was an incidental finding on this admission. Her hemoglobin was noted to be 6.5 on day two of admission and an FOBT was positive. She reported having dark stools at home, but believed it was because she has had loose stools since she had the flu a few weeks ago. She also reports taking ibuprofen for a headache that has been going on for a couple of weeks. She also complained of some epigastric discomfort, but had no hematochezia or other evidence of bleeding. She was tranfused two units of packed red blood cells for a goal hemoglobin of 8 given her coronary artery disease. Her hemoglobin responded and GI was consulted for endoscopic evaluation. Dr. Jay recommended an endoscopy. This was delayed two days due to Jessi's unwillingness to remain NPO. Eventually on June 26 she underwent endoscopy and was noted to have prominent esophageal blood vessels with no active bleeding, mild erosive esophagitis and mild gastritis. At the time of discharge, the CLOtest final report is negative. Her most recent hemoglobin on June 27 is 9.4 with a normal MCV. Her Plavix was resumed at the time of discharge since there was no active bleeding. 2. Diarrhea: She complained of ongoing diarrhea since she was diagnosed with the flu on her last hospitalization. Stool studies were negative for infection. 3. Poor home conditions: She was initially sent to the emergency department [facility] when they found that her propane tank was empty and she had no heat. She was unable to afford the delivery fee of new propane. She had recently been discharged from [facility] to home on June 18. Of note, prior to her stay at [facility], she was discharged from [facility] because it was deemed that she was unsafe to go home alone and also that she was unable to decline residential placement based on a psychiatric evaluation. On this hospitalization, she was re- evaluated by Psychiatry who again upheld that she is unable to reiterate the risks and dangers of going home alone and therefore is unable to make that decision. On the other hand, she was able to clearly define risks and consequences of procedures that were done while she was in the hospital, so she was able and willing to sign her own consents and make her own medical decisions. 4. Medication overuse headaches: She had recently been diagnosed with migraines; however, she was taking Fioricet too often, so this likely developed into a medication overuse headache. A CT head with contrast was obtained on this admission as she reported recent falls to rule out a subdural hematoma. The CT head was negative and she was slowly weaned off Fioricet. 5. Falls: She was evaluated by PT and residential transfer was recommended upon discharge. She is being [facility]. 6. Coronary artery disease: She has coronary artery disease that has been unable to be intervened upon. She has an ASPIRIN ALLERGY, so she is on Plavix, beta luis f and statin. 7. CVA with residual left upper extremity weakness: This was at baseline and she was continued on aspirin and statin as above. 8. History of alcohol abuse: She reports not having had a drink for several months and she had no evidence of withdrawal on this admission. 9. History of small cell lung cancer: She is to follow-up with Dr. Cloud and is due for a repeat CT in September of 2017. 10. Hyponatremia: This resolved with normal saline. DISPOSITION: She was discharged to [facility] on June 28 at 2:00 p.m. FOLLOW-UP NEEDED: She should follow-up with Guerrero Gtz NP for referral to the email marketing specialist to arrange aspirin desensitization. She has missed this appointment several times because she was admitted to the hospital. She also needs to follow- up with Dr. Cloud in July. [id number]/[facility] #: [id number] NICOLE
[2017-06-28 15:39] VITALS: BP 142/86
== END 2017-06-28 16:00 | DRG 812 ==
LOC: ED 13:02 → MED 16:27 → OBSVTOIN 06-23 09:30
PROVIDERS: ADMIT Internal Medicine; ATTEND Internal Medicine
PROC: 30233N1 Transfusion of Nonautologous Red Blood Cells into Peripheral Vein, Percutaneous Approach (ICD-10-PCS; 2017-06-23)
PROC: 0DB68ZX Excision of Stomach, Via Natural or Artificial Opening Endoscopic, Diagnostic (ICD-10-PCS; principal; 2017-06-26 08:00)
DX: D62 Acute posthemorrhagic anemia (principal); I69.354 Hemiplegia and hemiparesis following cerebral infarction affecting left non-dominant side; J44.9 Chronic obstructive pulmonary disease, unspecified; E87.1 Hypo-osmolality and hyponatremia; K22.10 Ulcer of esophagus without bleeding; Q21.1 Atrial septal defect; K92.1 Melena; E03.9 Hypothyroidism, unspecified; K29.70 Gastritis, unspecified, without bleeding; G43.909 Migraine, unspecified, not intractable, without status migrainosus; F41.9 Anxiety disorder, unspecified; I25.10 Atherosclerotic heart disease of native coronary artery without angina pectoris; R19.7 Diarrhea, unspecified; T39.1X1A Poisoning by 4-Aminophenol derivatives, accidental (unintentional), initial encounter; G44.40 Drug-induced headache, not elsewhere classified, not intractable; R74.8 Abnormal levels of other serum enzymes; W18.30XA Fall on same level, unspecified, initial encounter; F17.210 Nicotine dependence, cigarettes, uncomplicated; Z85.118 Personal history of other malignant neoplasm of bronchus and lung; Z88.6 Allergy status to analgesic agent; Z91.040 Latex allergy status; Z79.899 Other long term (current) drug therapy; Y92.009 Unspecified place in unspecified non-institutional (private) residence as the place of occurrence of the external cause; Z83.79 Family history of other diseases of the digestive system; Z79.01 Long term (current) use of anticoagulants
CPT/HCPCS: 36415; 70470; 71045; 80048; 80053; 81003; 81015; 82272; 82550; 82728; 83540; 83550; 83605; 83735; 83880; 84443; 84484; 85014; 85018; 85025; 85027; 85610; 85730; 86078; 86140; 86850; 86900; 86901; 86922; 87045; 87046; 87077; 87328; 87329; 87493; 87899; 88305; 93005; 94640; 94760; 99284; A9270-GY; G0378; J1885; J2250; J2405; J2704; J3010; P9040; Q9967

== ENCOUNTER 2017-07-15 17:53 | Inpatient (IN) | payer MEDICARE, BC ==
[2017-07-15] MEDS ORDERED: Diltiazem IV* 5 MG/ML 5 ML VIAL (for loading dose/IV Push) (25 MG) IV SLOW PU ONE ×2 (19:54→20:33)
[2017-07-15] MEDS ORDERED: Digoxin IV* 0.5 MG/2 ML AMP (0.25 MG/ML) IV SLOW PU ONE (19:57)
[2017-07-15] MEDS ORDERED: Morphine INJ* 10 MG/ML 1 ML CARPUJECT IV ONE (19:58)
[2017-07-15] MEDS ORDERED: Ondansetron INJ* 2 MG/ML VIAL IV ONE (19:58)
[2017-07-15] MEDS ORDERED: NS 0.9% 1000 ML* 1,000 ML IV ONE ×2 (19:59→20:43)
--- NOTE | 2017-07-15 20:01 | RAD ---
INDICATION: Chest pain June 20, 2017 COMPARISON: June 20, 2017 TECHNIQUE: An AP portable view obtained at 1952 hours is submitted. FINDINGS: Bones/Soft Tissues: There are no acute bony findings. Cardiomediastinal: The cardiac silhouette is unchanged. There are clips in the left hilar region. Lungs: No acute infiltrates. There is volume loss with mild chronic pleural changes in the left chest and mild left basilar scarring. Pleura: There are no pleural effusions. Other: None IMPRESSION: POSTOPERATIVE CHANGES LEFT CHEST COMPATIBLE WITH THORACOTOMY. ACUTE FINDINGS
[2017-07-15] MEDS ORDERED: Aspirin Low Dose CHEW TAB* 81 MG PO ONE (20:02)
[2017-07-15] MEDS ORDERED: Ipratropium 0.5MG/2.5ML NEB* 0.5 MG/2.5 ML NEB.SOLN INH PRN (20:13)
[2017-07-15] MEDS ORDERED: Docusate CAP* 100 MG PO PRN (20:31)
[2017-07-15] MEDS ORDERED: Magnesium Hydroxide LIQ* 30 ML UDC PO PRN (20:31)
[2017-07-15] MEDS ORDERED: Senna TAB PO PRN (20:31)
[2017-07-15] MEDS ORDERED: Al Hydrox/Mg Hydrox/Simet LIQ* 30 ML UDC PO PRN (20:31)
[2017-07-15] MEDS ORDERED: Ondansetron INJ* 2 MG/ML VIAL IV PRN (20:31)
[2017-07-15] MEDS ORDERED: Diltiazem DRIP* 100 MG/100 ML ADDV.BAG IVPB ONE (20:34)
[2017-07-15 20:42] LABS: EGFR Non-African American 64.5 (>60)
[2017-07-15 20:46] LABS: INR 1.02 (0.77-1.02)
[2017-07-15] MEDS ORDERED: Diazepam TAB(*) 2 MG PO PRN (20:51)
[2017-07-15] MEDS ORDERED: Diltiazem IV VIAL* 125 MG in NS 0.9% 100 ML* 100 ML IV SCH (21:00)
[2017-07-15] MEDS ORDERED: Enoxaparin(*) 40 MG/0.4 ML SYR SUBCUT SCH (21:00)
[2017-07-15] MEDS ORDERED: Diltiazem IV VIAL* 125 MG in NS 0.9% 100 ML* 100 ML IVPB SCH (21:00)
[2017-07-15] MEDS ORDERED: Magnesium Sulfate 2 GM IV* 2 GM/50 ML BAG IVPB ONE (21:06)
--- NOTE | 2017-07-15 21:11 | ED ---
Servando Winkler Stephanie, scribed for Carolina Weber MD on 07/15/17 at 2020 . HPI Chest Pain - HPI Summary HPI Summary: The pt is a 66 y/o F presenting to the ED with c/o CP that began while at the ED. Originally, the pt came to the ED because she has no heat at home. Symptoms include palpitations. - History of Current Complaint Chief Complaint: EDGeneral Time Seen by Provider: 07/15/17 18:21 Hx Obtained From: Patient Onset/Duration: Started Hours Ago - 1, Still Present Timing: Constant Current Severity: Moderate Pain Intensity: 7 Pain Scale Used: 0-10 Numeric Aggravating Factor(s): Nothing Alleviating Factor(s): Nothing Associated Signs and Symptoms: Positive: Chest Pain, Palpitations - Additional Pertinent History Primary Care Physician: [id number] - Allergy/Home Medications Allergies/Adverse Reactions: Allergies Allergy/AdvReac Type Severity Reaction Status Date / Time MS Aspirin [Aspirin] Allergy Severe Anaphylatic Verified 07/15/17 18:11 Shock MS Latex [Latex] AdvReac Mild Rash Verified 07/15/17 18:11 PMH/Surg Hx/FS Hx/Imm Hx Endocrine/Hematology History: Reports: Hx Thyroid Disease - hypothyroid, Other Endocrine/Hematological Disorders - Benign goiter Denies: Hx Bone Marrow Disease, Hx Diabetes, Hx Systemic Lupus Erythematosus Cardiovascular History: Reports: Hx Angina, Hx Hypercholesterolemia - was high before cancer,now off meds., Hx Hypertension, Hx Myocardial Infarction - NSTEMI , Other Cardiovascular Problems/Disorders - patent foramen ovale; Murmur, Denies: Hx Congestive Heart Failure, Hx Coronary Artery Disease, Hx Pacemaker /ICD, Hx Valvular Heart Disease Respiratory History: Reports: Hx Asthma, Hx Chronic Obstructive Pulmonary Disease (COPD), Hx Lung Cancer - Left upper lobectomy, Hx Pneumonia, Other Respiratory Problems/Disorders - lung cancer, LOBECTOMY 09/11/11 GI History: Reports: Hx Gastroesophageal Reflux Disease, Hx Hiatal Hernia, Other GI Disorders - colitis. 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, Hx Osteoporosis, Hx Scoliosis, Other Musculoskeletal History - scoliosis Denies: Hx Rheumatoid Arthritis Sensory History: Reports: Hx Cataracts - PATIENT STATES BEGINING OF CATARACTS LEFT EYE, Hx Contacts or Glasses, Hx Hearing Problem - right Denies: Hx Hearing Aid Opthamlomology History: Reports: Hx Cataracts - PATIENT STATES BEGINING OF CATARACTS LEFT EYE, Hx Contacts or Glasses Neurological History: Reports: Hx CVA - in 05/16, Hx Headaches, Hx Migraine - Rare post menopause Psychiatric History: Reports: Hx Anxiety, Hx Depression, Hx Community Mental Health Tx, Hx Substance Abuse - opioids Denies: Hx Panic Disorder, Hx Inpatient Treatment - Cancer History Cancer Type, Location and Year: LUNG CA, DIAGNOSED July 2012 Hx Chemotherapy: Yes Hx Radiation Therapy: No Hx Palliative Cancer Treatment: No - Surgical History Surgery Procedure, Year, and Place: LEFT UPPER LUNG REMOVED 09/2012, HYSTERECTOMY , tonsillectomy Hx Anesthesia Reactions: No - Immunization History Date of Tetanus Vaccine: utd Date of Influenza Vaccine: utd Infectious Disease History: No Infectious Disease History: Denies: Hx of Known/Suspected MRSA, Traveled Outside the [place] in Last 30 Days - Family History Known Family History: Positive: Cardiac Disease - Sudden cardiac arrest (father) , Other - son -- glioblastoma. UC mother. Fhx of colitis. - Social History Occupation: Retired Lives: Alone Alcohol Use: None Hx Substance Use: No Substance Use Type: Reports: Prescribed, Other Substance Use Comment - Amount & Last Used: percocet Hx Tobacco Use: Yes Smoking Status (MU): Heavy Every Day Tobacco Smoker Type: Cigarettes Amount Used/How Often: 1/2 pack a day Length of Time of Smoking/Using Tobacco: 47 years Have You Smoked in the Last Year: Yes Review of Systems Negative: Fever Positive: Palpitations, Chest Pain All Other Systems Reviewed And Are Negative: Yes Physical Exam - Summary Physical Exam Summary: VITAL SIGNS: Reviewed. GENERAL: Patient is a well-developed and nourished (MALE OR FEMALE) who is lying comfortable in the stretcher. Patient is not in any acute respiratory distress. HEAD AND FACE: No signs of trauma. No ecchymosis, hematomas or skull depressions. No sinus tenderness. EYES: PERRLA, EOMI x 2, No injected conjunctiva, no nystagmus. EARS: Hearing grossly intact. Ear canals and tympanic membranes are within normal limits. MOUTH: Oropharynx within normal limits. NECK: Supple, trachea is midline, no adenopathy, no JVD, no carotid bruit, no c- spine tenderness, neck with full ROM. CHEST: Symmetric, no tenderness at palpation LUNGS: decreased breath sounds bilaterally. No wheezing or crackles. CVS: irregular tachycardia, S1 and S2 present, no murmurs or gallops appreciated. ABDOMEN: Soft, non-tender. No signs of distention. No rebound no guarding, and no masses palpated. Bowel sounds are normal. EXTREMITIES: FROM in all major joints, no edema, no cyanosis or clubbing. NEURO: Alert and oriented x 3. No acute neurological deficits. Speech is normal and follows commands. SKIN: Dry and warm Triage Information Reviewed: Yes Vital Signs On Initial Exam: Initial Vitals Temp Pulse Resp BP Pulse Ox 97.4 F 104 14 128/88 100 07/15/17 18:08 07/15/17 18:08 07/15/17 18:08 07/15/17 18:08 07/15/17 18:08 Vital Signs Reviewed: Yes Diagnostics - Vital Signs Vital Signs Temp Pulse Resp BP Pulse Ox 07/15/17 19:38 102 97 07/15/17 19:37 122/72 07/15/17 18:30 144/73 07/15/17 18:11 28 128/88 85 07/15/17 18:08 97.4 F 104 14 128/88 100 - Laboratory Result Diagrams: 07/15/17 20:15 Lab Statement: Any lab studies that have been ordered have been reviewed, and results considered in the medical decision making process. - Radiology CXR Xray Interpretation: Positive (See Comments) Radiology Interpretation Completed By: Radiologist - POSTOPERATIVE CHANGES LEFT CHEST COMPATIBLE WITH THORACOTOMY. ACUTE FINDINGS - EKG 19:40 EKG Rhythm: Atrial Flutter - 147 BPM EKG Interpretation: A-fib flutter, NSSTTwave changes 20:27 EKG Rhythm: Atrial Flutter - 147 BPM EKG Interpretation: Normal axis. Normal interval. No ischemic changes Chest Pain Course/Dx - Course Course Of Treatment: The pt has a hx of COPD. She has had multiple visits to ED. The pt initially came to the ED because she has no heat at home. While waiting to be evaluated, she developed palpitations. Pt treated with cardiozen and digoxin. The pt will be on cardiozen drip. The pt was evaluated by hospitalist Dr. Ge. - Diagnoses Provider Diagnoses: Atrial fibrillation, Chest pain Discharge - Discharge Plan Condition: Stable Disposition: ADMITTED TO [facility] Referrals: Guerrero Gtz, [employer]SEMBLER [Primary Care Provider] - The documentation as recorded by the Servando crawford Stephanie accurately reflects the service I personally performed and the decisions made by , Carolina Weber MD.
[2017-07-15 21:14] LABS: ABS Basophils 0.1 10^3/ul (0-0.2); ABS Eosinophils 0 10^3/ul (0-0.6); ABS Monocytes 0.7 10^3/ul (0-0.8); ABS Neutrophils 7.2 10^3/ul (1.5-7.7); ABS Nucleated RBC 0 10^3/ul; Eosinophil % 0.5 % (0-6); Hematocrit 30 % (35-47); Hemoglobin 9.9 g/dl (12.0-16.0); Lymphocyte % 11.1 % (25-47); Mean Corpuscular HGB Conc 33 g/dl (31-36); Mean Corpuscular Hemoglobin 30 pg (27-31); Mean Corpuscular Volume 90 fL (80-97); Mean Platelet Volume 9 um3 (7.4-10.4); Nucleated Red Blood Cells % 0; Platelet Count 302 10^3/ul (150-450); Red Blood Count 3.29 10^6/ul (4.0-5.4); Red Cell Distribution Width 17 % (10.5-15)
[2017-07-15] MEDS: Gabapentin CAP(*) 300 MG PO PRN (22:37)
[2017-07-15] MEDS: Metoprolol Tartrate TAB* 25 MG PO SCH (22:37)
[2017-07-15] MEDS: QUEtiapine TAB* 100 MG PO SCH (22:38)
[2017-07-15] MEDS: Enoxaparin(*) 40 MG/0.4 ML SYR SUBCUT SCH (22:38)
[2017-07-15] MEDS: CMCS: Pantoprazole TAB (NF) 40 MG TAB PO SCH (22:39)
[2017-07-16] MEDS: NS 0.9% 1000 ML* 1,000 ML IV SCH ×2 (00:04→06:40)
--- NOTE | 2017-07-16 00:10 | HP ---
CC: Guerrero Gtz NP * HISTORY AND PHYSICAL: DATE OF ADMISSION: 07/15/17 TIME OF EVALUATION: 1900 PRIMARY CARE PHYSICIAN: Guerrero Gtz NP CHIEF COMPLAINT: Initially stated that she cannot care for herself at home. HISTORY OF PRESENT ILLNESS: This is a 66-year-old female who is well known to the hospitalist service. She has a past medical history of COPD, lung cancer, stroke and CAD, who was recently admitted from 06/21/17 to 06/28/17 and she was sent to [facility] at that time. The patient states she was discharged home on 07/13/17. She feels like she was sent home too soon. She knew that she was not going to do well at home. She was having difficulty getting around. She states she ran out of propane. I was called initially for a social admission as the patient was not a safe discharge. Social work was consulted. However, shortly before my arrival, she began having crushing chest pain with EKG showing she went into rapid atrial fibrillation. She states she has been having chest pain all day for the past 1-1/2 days. She did not take her morning medications because she knew something was wrong. She had a hard time getting into the bathroom. She denies any shortness of breath. She is nauseous and anxious. She denies any changes in weight. No fever. No upper respiratory symptoms. No abdominal pain. No urinary symptoms. She denies any falls at home. She states she believes she went back, they told her to go back on Coumadin when she was discharged from [facility], but she is not clear. She denies any blood in her stools. No black stools. Otherwise, remaining review of systems is negative. In the emergency room, the patient did not have labs initially. Labs are being obtained. She was given a dig bolus and started on diltiazem drip. PAST MEDICAL HISTORY: 1. Recent GI bleed in May 2017. She has a history of noncompliance. Difficult social home setting. 2. History of hyponatremia. 3. COPD. 4. History of lung cancer. 5. History of PFO. Per the patient, she has a history of atrial tachycardia. 6. Hypertension. 7. Hyperlipidemia. 8. Hypothyroidism. 9. Chronic pain. 10. History of PE. 11. History of opiate and benzo abuse. 12. Anxiety. 13. CAD. 14. History of CVA with residual left arm weakness. PAST SURGICAL HISTORY: She has had a left upper lobe lobectomy, history of catheterization, no stent placed, history of tonsillectomy and hysterectomy. MEDICATIONS: 1. Flovent 1 puff inhaled b.i.d. 2. Diltiazem 120 mg p.o. daily. 3. Cymbalta 60 mg p.o. daily. 4. Plavix 75 mg p.o. daily. 5. Lipitor 40 mg p.o. daily. 6. Albuterol inhaler 2 puffs q.4 hours as needed. 7. Nebulizer 2.5 mg q.4 hours as needed. 8. Tramadol 25 mg q.8 hours as needed. 9. Seroquel 100 mg p.o. at bedtime. 10. Protonix 40 mg p.o. b.i.d. 11. Nabumetone 75 mg p.o. t.i.d. as needed. 12. Metoprolol succinate 50 mg p.o. daily. 13. [id number] mcg daily. 14. Ipratropium 0.5 mg tablets 4 times a day as needed. 15. Gabapentin 300 mg p.o. t.i.d. as needed. ALLERGIES: 1. ASPIRIN - anaphylactic shock. 2. LATEX. FAMILY HISTORY: Reviewed and noncontributory. SOCIAL HISTORY: As mentioned, the patient has been in and out of rehab and she was just discharged from [facility] on the . She has a challenging home situation where she has inability to get heat for her home and the concern for care for herself, but she has been evaluated for capacity and has been able to make those decisions. She is still smoking, down to 4 cigarettes a day. No alcohol use. No illicit drug use. She is ambulating with a cane. Her healthcare proxy is her daughter, Elyssa. Code status is full code. REVIEW OF SYSTEMS: A 14-point review of systems as mentioned in the HPI, otherwise negative. PHYSICAL EXAMINATION GENERAL: No acute distress, resting comfortably. VITAL SIGNS: Temp 98.6, pulse rate 136, respiratory rate 25, oxygen saturation 99% on room air, blood pressure 111/83. HEENT: Head: Normocephalic. Pupils equal and reactive, anicteric. Oropharynx : Mucous membranes are moist. NECK: Supple. No lymphadenopathy. RESPIRATORY: Diminished breath sounds. No wheezes, rhonchi, or rales. No increased work of breathing. CARDIAC: Rapid irregularly irregular rate and rhythm. ABDOMEN: Soft, nontender, nondistended. EXTREMITIES: No clubbing, cyanosis or edema. +1 DPs. NEUROLOGIC: Alert and oriented x3. No gross focal neurologic deficits. Some mild left upper extremity weakness. DIAGNOSTIC STUDIES/LAB DATA: White count 9, hemoglobin 9.9, hematocrit 30, platelets 302,000. INR is 1.02. Sodium 127, potassium 4.4, chloride 95, bicarb 23, BUN 12, creatinine 0.88, magnesium 1.7, troponin is 0. TSH 0.54. Radiographic data: Chest x-ray, postoperative changes left chest, compatible with thoracotomy. No acute findings. EKG: There was rapid atrial flutter with no significant ST depression. ASSESSMENT: This is a 66-year-old female with a past medical history of recent GI bleed secondary to gastritis, cerebrovascular accident, coronary artery disease who presented to the emergency room initially for an inability to care for herself and then went into rapid atrial fibrillation. 1. Rapid atrial fibrillation. Assessment: The patient states she does have a history of atrial tachycardia. I could not find any EKGs or any evidence of this documented. She did not take her morning medications, which could be contributing to this. She is very anxious, so her home life situation may have triggered part of this. Her initial ischemic workup is unremarkable. Plan: We will admit her to the ICU to keep her on the diltiazem drip. We will continue to trend her troponin, check a lipid panel. We will put her on a short acting metoprolol 25 mg p.o. b.i.d. for now in place of her long acting. We will continue her Plavix for now in terms of anticoagulation. With her history of stroke and now with atrial tachycardia, she should be on anticoagulation; however, she does have a recent GI bleed. Endoscopy showed in May some mild gastritis, esophagitis. Her H and H appears stable. She denies any dark tarry stools. She has been on Plavix, does not seem to have been a issue. Rather than starting on an oral direct agent, we will start her on Lovenox for now. If she does well with Lovenox and Plavix, I would consider starting her on Coumadin. I spoke Dr. Bermudez regarding cardioversion, concern for long-term anticoagulation with this recent GI bleed. We will hold off on scheduling her for a possible cardioversion and trying to convert her medically back into sinus. She just had an echocardiogram done in May. We will hold off on that as it did not show any significant findings at that time. CHRONIC MEDICAL PROBLEMS: 1. Chronic obstructive pulmonary disease. Resume her home medications. 2. History of stroke. As mentioned, continue her Plavix, continue her metoprolol, continue her atorvastatin. 3. History of chronic pain and anxiety. Continue duloxetine. We will hold her nabumetone as this can cause GI bleed. Continue her gabapentin and her Seroquel at bedtime. We will give her low-dose Valium as she states she is very anxious with everything going on. 4. FEN. We will place her on a heart healthy decaf diet and bolus her and place her on gentle fluids. 5. DVT prophylaxis. The patient will be on Lovenox. She scores moderate risk. 6. Code status. Full code. TIME SPENT: Greater than 60 minutes was spent doing the history and physical, more than half the time spent in direct patient contact. [id number]/[facility] #: [id number] NICOLE
[2017-07-16] MEDS: traMADol TAB* 50 MG PO PRN ×3 (00:46→18:39)
--- NOTE | 2017-07-16 01:03 | PN ---
Progress Note - Progress Note Date of Service: 07/16/17 Note: Patient broke into sinus on arrival to the ICU. Will d/c diltiazem and start PO short acting in setting of her soft BPs. Can transfer to tele.
[2017-07-16] MEDS: Diltiazem TAB* 60 MG PO SCH ×4 (02:41→17:28)
[2017-07-16] MEDS ORDERED: NS 0.9% 1000 ML* 1,000 ML IV ONE (02:45)
[2017-07-16] MEDS: Acetaminophen TAB* 325 MG PO PRN ×2 (04:48→21:23)
[2017-07-16] MEDS: Gabapentin CAP(*) 300 MG PO PRN (04:48)
[2017-07-16 05:49] LABS: ABS Basophils 0 10^3/ul (0-0.2); ABS Eosinophils 0.2 10^3/ul (0-0.6); ABS Lymphocytes 1.2 10^3/ul (1.0-4.8); ABS Monocytes 0.9 10^3/ul (0-0.8); ABS Neutrophils 4.1 10^3/ul (1.5-7.7); ABS Nucleated RBC 0 10^3/ul; Eosinophil % 2.6 % (0-6); Hematocrit 24 % (35-47); Hemoglobin 8.3 g/dl (12.0-16.0); Lymphocyte % 18.7 % (25-47); Mean Corpuscular HGB Conc 34 g/dl (31-36); Mean Corpuscular Hemoglobin 31 pg (27-31); Mean Corpuscular Volume 90 fL (80-97); Mean Platelet Volume 9 um3 (7.4-10.4); Nucleated Red Blood Cells % 0; Platelet Count 267 10^3/ul (150-450); Red Cell Distribution Width 17 % (10.5-15); White Blood Count 6.5 10^3/ul (3.5-10.8)
[2017-07-16] MEDS ORDERED: Levothyroxine TAB* 175 MCG TAB PO SCH (06:00)
[2017-07-16 06:07] LABS: EGFR Non-African American 43.4 (>60)
[2017-07-16] MEDS: CMCS: Pantoprazole TAB (NF) 40 MG TAB PO SCH ×2 (09:51→21:23)
[2017-07-16] MEDS: Enoxaparin(*) 40 MG/0.4 ML SYR SUBCUT SCH (09:52)
[2017-07-16] MEDS: DULoxetine DR CAP* 60 MG CAP.DR PO SCH (09:52)
[2017-07-16] MEDS: Clopidogrel TAB* 75 MG PO SCH (09:52)
[2017-07-16] MEDS: Metoprolol Tartrate TAB* 25 MG PO SCH (09:52)
--- NOTE | 2017-07-16 10:36 | PN ---
Subjective Date of Service: 07/16/17 Interval History: Pt states she did have heat at home but thinks her propane is running out again. She is also concerned that she can not take care of herself because her L hand/wrist is very weak; much weaker than it was when she was at [facility]. She states that the day before she left [facility] she suddenly was not able to do the exercises with the L wrist that she was previously doing. She thinks she needs to go back to [facility]. Objective Active Medications: Acetaminophen (Tylenol Tab*) 650 mg PO Q4H PRN PRN Reason: FEVER/PAIN Last Admin: 07/16/17 04:48 Dose: 650 mg Al Hydrox/Mg Hydrox/Simethicone (Maalox Plus*) 30 ml PO Q6H PRN PRN Reason: INDIGESTION Last Admin: 07/16/17 04:32 Dose: 30 ml Albuterol (Ventolin 2.5 Mg/3 Ml Neb.Tracey*) 2.5 mg INH Q4H PRN PRN Reason: SOB/WHEEZING Albuterol (Ventolin Hfa Inhaler*) 2 puff INH Q4H PRN PRN Reason: SOB/WHEEZING Atorvastatin Calcium (Lipitor*) 40 mg PO 1700 [facility] Clopidogrel Bisulfate (Plavix Tab*) 75 mg PO DAILY [facility] Last Admin: 07/16/17 09:52 Dose: 75 mg Diazepam (Valium Tab(*)) 2 mg PO BID PRN PRN Reason: ANXIETY Last Admin: 07/15/17 22:38 Dose: 2 mg Diltiazem HCl (Cardizem Tab*) 60 mg PO Q6H [facility] Docusate Sodium (Colace Cap*) 100 mg PO BID PRN PRN Reason: CONSTIPATION Duloxetine HCl (Cymbalta Cap*) 60 mg PO DAILY [facility] Last Admin: 07/16/17 09:52 Dose: 60 mg Enoxaparin Sodium (Lovenox(*)) 35 mg SUBCUT BID [facility] Last Admin: 07/16/17 09:52 Dose: 35 mg Gabapentin (Neurontin Cap(*)) 300 mg PO TID PRN PRN Reason: PAIN Last Admin: 07/16/17 04:48 Dose: 300 mg Ipratropium [place] (Atrovent 0.5 Mg Neb.Tracey*) 0.5 mg INH QID PRN PRN Reason: SOB/WHEEZING Levothyroxine Sodium (Synthroid Tab*) 175 mcg PO DAILY@0600 [facility] Last Admin: 07/16/17 06:26 Dose: 175 mcg Magnesium Hydroxide (Milk Of Magnesia Liq*) 30 ml PO Q4H PRN PRN Reason: CONSTIPATION Metoprolol Tartrate (Lopressor Tab*) 25 mg PO BID [facility] Last Admin: 07/16/17 09:52 Dose: 25 mg Mometasone Furoate (Asmanex 220 Mcg Mdi *) 2 puff INH QPM [facility] Ondansetron HCl (Zofran Inj*) 4 mg IV Q4H PRN PRN Reason: NAUSEA/VOMITING Pantoprazole Sodium (Protonix Tab (Nf)) 40 mg PO BID [facility] Last Admin: 07/16/17 09:51 Dose: 40 mg Quetiapine Fumarate (Seroquel Tab*) 100 mg PO BEDTIME [facility] Last Admin: 07/15/17 22:38 Dose: 100 mg Senna (Senokot Tab*) 1 tab PO BID PRN PRN Reason: CONSTIPATION Tramadol HCl (Ultram*) 25 mg PO Q8H PRN PRN Reason: PAIN Last Admin: 07/16/17 09:51 Dose: 25 mg Vital Signs - 8 hr 07/16/17 07/16/17 07/16/17 02:30 02:45 03:00 Temperature Pulse Rate 74 75 76 Respiratory 18 21 19 Rate Blood Pressure 107/58 93/42 109/66 (mmHg) O2 Sat by Pulse 98 98 98 Oximetry 07/16/17 07/16/17 07/16/17 03:01 03:15 03:30 Temperature Pulse Rate 77 76 77 Respiratory 19 19 17 Rate Blood Pressure 104/53 122/68 (mmHg) O2 Sat by Pulse 98 98 98 Oximetry 07/16/17 07/16/17 07/16/17 03:45 04:00 04:01 Temperature 97.8 F Pulse Rate 76 76 77 Respiratory 19 19 19 Rate Blood Pressure 103/59 109/64 (mmHg) O2 Sat by Pulse 98 97 97 Oximetry 07/16/17 07/16/17 07/16/17 04:15 04:30 04:46 Temperature Pulse Rate 73 81 75 Respiratory 16 18 17 Rate Blood Pressure 101/59 107/65 (mmHg) O2 Sat by Pulse 97 97 78 Oximetry 07/16/17 07/16/17 07/16/17 04:56 05:00 05:15 Temperature Pulse Rate 70 70 72 Respiratory 17 21 18 Rate Blood Pressure 97/54 93/51 92/55 (mmHg) O2 Sat by Pulse 99 99 98 Oximetry 07/16/17 07/16/17 07/16/17 05:30 05:45 06:00 Temperature Pulse Rate 74 80 85 Respiratory 19 19 18 Rate Blood Pressure 94/55 112/63 110/58 (mmHg) O2 Sat by Pulse 98 99 98 Oximetry 07/16/17 07/16/17 07/16/17 06:15 06:30 06:45 Temperature Pulse Rate 83 77 87 Respiratory 20 17 21 Rate Blood Pressure 104/59 120/66 131/85 (mmHg) O2 Sat by Pulse 98 96 96 Oximetry 07/16/17 07/16/17 07:00 09:51 Temperature Pulse Rate 82 Respiratory 18 20 Rate Blood Pressure 113/73 (mmHg) O2 Sat by Pulse 96 Oximetry Oxygen Devices in Use Now: Nasal Cannula Appearance: Middle aged female sitting up in bed, NAD Eyes: No Scleral Icterus Ears/Nose/Mouth/Throat: Mucous Membranes Moist Respiratory: Symmetrical Chest Expansion and Respiratory Effort, Clear to Auscultation Cardiovascular: NL Sounds; No Murmurs; No JVD, RRR, No Edema Abdominal: NL Sounds; No Tenderness; No Distention Extremities: No Clubbing, Cyanosis Skin: No Nodules or Sclerosis Neurological: Alert and Oriented x 3, - - L wrist drop Result Diagrams: 07/16/17 05:30 07/16/17 05:30 Microbiology and Other Data: Microbiology 07/16/17 00:15 Nasal Screen MRSA (PCR)([facility]) - Final Nasal Mrsa Not Detected Assess/Plan/Problems-Billing Ms Glover is a 66 yo F who had had multiple recent admission for different issues who presents back to the ER just a few days after being discharged from [facility] with c/o inability to care for herself at home and was found to be in rapid afib. - Patient Problems (1) Atrial fibrillation with RVR Current Visit: Yes Status: Acute Code(s): I48.91 - UNSPECIFIED ATRIAL FIBRILLATION SNOMED Code(s): 032056264874198 Comment: The patient was found to be in rapid afib in the ER. She received IV digoxin and diltiazem and spontaneously converted to NSR. She will remain on diltiazem and metoprolol. She is getting lovenox currently for stroke prevention however she recently was treated for a GI bleed and therefore will need to monitor closely for signs of bleeding. Will watch overnight. If no signs of bleeding will consider transitioning to eliquis or other anticoagulant for chcf managment given her recent CVA. I am suspicous her CVA may have been secondary to afib. (2) H/O: CVA (cerebrovascular accident) Current Visit: Yes Status: Acute Code(s): Z86.73 - PRSNL HX OF TIA (TIA), AND CEREB INFRC W/O RESID DEFICITS SNOMED Code(s): 429395639 (3) Depression Current Visit: Yes Status: Chronic Code(s): F32.9 - MAJOR DEPRESSIVE DISORDER, SINGLE EPISODE, UNSPECIFIED SNOMED Code(s): 61451402 Comment: Continue cymbalta and seroquel. (4) Hypertension Current Visit: Yes Status: Chronic Code(s): I10 - ESSENTIAL (PRIMARY) HYPERTENSION SNOMED Code(s): 49966400 Comment: BP is under good control. Will monitor on current regimen and will be changing back to home regimen tomorrow. (5) HLD (hyperlipidemia) Current Visit: Yes Status: Chronic Code(s): E78.5 - HYPERLIPIDEMIA, UNSPECIFIED SNOMED Code(s): 97576418 Comment: Continue lipitor. (6) Hypothyroidism Current Visit: Yes Status: Chronic Code(s): E03.9 - HYPOTHYROIDISM, UNSPECIFIED SNOMED Code(s): 98206807 Comment: I suspect is non-compliant with her synthroid. Last month her TSH was 11.18 but after going to [facility] where she was given her meds her TSH is now quite low. Repeat TSH in 2-4 weeks. Continue synthroid but decrease to 150mcg daily. (7) Chronic headache Current Visit: Yes Status: Chronic Code(s): R51 - HEADACHE SNOMED Code(s) : 812742573 Comment: Continue prn tramadol and tylenol. (8) GERD (gastroesophageal reflux disease) Current Visit: Yes Status: Chronic Code(s): K21.9 - GASTRO-ESOPHAGEAL REFLUX DISEASE WITHOUT ESOPHAGITIS SNOMED Code(s): 813753679 Comment: Continue Protonix BID. (9) DVT prophylaxis Current Visit: Yes Status: Acute Code(s): IPA2543 - SNOMED Code(s): 354485851 Comment: lovenox (10) Full code status Current Visit: Yes Status: Acute Code(s): Z78.9 - OTHER SPECIFIED HEALTH STATUS SNOMED Code(s): 854749556 Comment:
--- NOTE | 2017-07-16 12:21 | RAD ---
INDICATION: Worsening left wrist weakness. COMPARISON: Comparison is made with prior study from June 23, 2017. TECHNIQUE: Contiguous axial sections of the brain were obtained from the skull base to the vertex without contrast. FINDINGS: The ventricles, cisterns and sulci are enlarged consistent with diffuse atrophy. There are multiple focal areas of decreased density in the subcortical and periventricular white matter suggestive of moderate chronic small vessel ischemic changes. There is a small old infarct in the posterior right frontal lobe which is unchanged. No other focal abnormalities or mass effect are seen. There is no evidence for hemorrhage. There is an air-fluid level within the left maxillary sinus which is unchanged. The visualized portion of the paranasal sinuses and mastoid air cells otherwise appear clear. IMPRESSION: 1. NO EVIDENCE FOR GROSS ACUTE INFARCT MASS EFFECT OR HEMORRHAGE. 2. FINDINGS CONSISTENT WITH MODERATE CHRONIC SMALL VESSEL ISCHEMIC CHANGES. 3. OLD RIGHT FRONTAL LOBE INFARCT. 4. AIR-FLUID LEVEL WITHIN THE LEFT MAXILLARY SINUS, UNCHANGED.
[2017-07-16] MEDS: Atorvastatin* 40 MG TAB PO SCH (17:28)
[2017-07-16] MEDS ORDERED: Mometasone 220 MCG MDI INH SCH (18:00)
[2017-07-16] MEDS ORDERED: NS 0.9% 500 ML* 500 ML IV ONE (18:06)
[2017-07-16] MEDS: QUEtiapine TAB* 100 MG PO SCH (21:23)
[2017-07-16] MEDS: Enoxaparin(*) 60 MG/0.6 ML SYR SUBCUT SCH (21:24)
[2017-07-17] MEDS: traMADol TAB* 50 MG PO PRN ×3 (02:22→19:29)
[2017-07-17] MEDS: Acetaminophen TAB* 325 MG PO PRN ×3 (04:03→16:15)
[2017-07-17] MEDS: Levothyroxine TAB* 150 MCG TAB PO SCH (06:53)
[2017-07-17] MEDS: CMCS: Pantoprazole TAB (NF) 40 MG TAB PO SCH ×2 (09:45→21:43)
[2017-07-17] MEDS: DULoxetine DR CAP* 60 MG CAP.DR PO SCH (09:45)
[2017-07-17] MEDS: Clopidogrel TAB* 75 MG PO SCH (09:45)
[2017-07-17] MEDS: Gabapentin CAP(*) 300 MG PO PRN ×2 (09:46→18:06)
[2017-07-17] MEDS: Metoprolol Tartrate TAB* 25 MG PO SCH ×2 (09:47→21:43)
[2017-07-17] MEDS: Diltiazem CD CAP* 120 MG PO SCH (09:47)
[2017-07-17] MEDS: Enoxaparin(*) 60 MG/0.6 ML SYR SUBCUT SCH ×2 (11:23→21:44)
[2017-07-17] MEDS: Atorvastatin* 40 MG TAB PO SCH (16:15)
--- NOTE | 2017-07-17 18:32 | PN ---
Subjective Date of Service: 07/17/17 Interval History: Pt is feeling ok. Headache is still her biggest complaint. She states the tramadol helps but starts to wear off around 4.5hr. She states she wants to go home but states she failed miserably. Objective Active Medications: Acetaminophen (Tylenol Tab*) 650 mg PO Q4H PRN PRN Reason: FEVER/PAIN Last Admin: 07/17/17 16:15 Dose: 650 mg Al Hydrox/Mg Hydrox/Simethicone (Maalox Plus*) 30 ml PO Q6H PRN PRN Reason: INDIGESTION Last Admin: 07/16/17 04:32 Dose: 30 ml Albuterol (Ventolin 2.5 Mg/3 Ml Neb.Tracey*) 2.5 mg INH Q4H PRN PRN Reason: SOB/WHEEZING Albuterol (Ventolin Hfa Inhaler*) 2 puff INH Q4H PRN PRN Reason: SOB/WHEEZING Atorvastatin Calcium (Lipitor*) 40 mg PO 1700 [facility] Last Admin: 07/17/17 16:15 Dose: 40 mg Clopidogrel Bisulfate (Plavix Tab*) 75 mg PO DAILY [facility] Last Admin: 07/17/17 09:45 Dose: 75 mg Diltiazem HCl (Cardizem Cd Cap*) 120 mg PO DAILY [facility] Last Admin: 07/17/17 09:47 Dose: 120 mg Docusate Sodium (Colace Cap*) 100 mg PO BID PRN PRN Reason: CONSTIPATION Duloxetine HCl (Cymbalta Cap*) 60 mg PO DAILY [facility] Last Admin: 07/17/17 09:45 Dose: 60 mg Enoxaparin Sodium (Lovenox(*)) 35 mg SUBCUT BID [facility] Last Admin: 07/17/17 11:23 Dose: 35 mg Gabapentin (Neurontin Cap(*)) 300 mg PO TID PRN PRN Reason: PAIN Last Admin: 07/17/17 18:06 Dose: 300 mg Ipratropium [place] (Atrovent 0.5 Mg Neb.Tracey*) 0.5 mg INH QID PRN PRN Reason: SOB/WHEEZING Levothyroxine Sodium (Synthroid Tab*) 150 mcg PO DAILY@0600 [facility] Last Admin: 07/17/17 06:53 Dose: 150 mcg Magnesium Hydroxide (Milk Of Magnesia Liq*) 30 ml PO Q4H PRN PRN Reason: CONSTIPATION Metoprolol Tartrate (Lopressor Tab*) 12.5 mg PO BID [facility] Last Admin: 07/17/17 09:47 Dose: 12.5 mg Mometasone Furoate (Asmanex 220 Mcg Mdi *) 2 puff INH 2100 [facility] Ondansetron HCl (Zofran Inj*) 4 mg IV Q4H PRN PRN Reason: NAUSEA/VOMITING Pantoprazole Sodium (Protonix Tab (Nf)) 40 mg PO BID [facility] Last Admin: 07/17/17 09:45 Dose: 40 mg Quetiapine Fumarate (Seroquel Tab*) 100 mg PO BEDTIME [facility] Last Admin: 07/16/17 21:23 Dose: 100 mg Senna (Senokot Tab*) 1 tab PO BID PRN PRN Reason: CONSTIPATION Tramadol HCl (Ultram*) 50 mg PO Q6H PRN PRN Reason: PAIN Warfarin Sodium (Coumadin Tab(*)) 5 mg PO DAILY@1700 [facility] PRN Reason: Protocol Vital Signs - 8 hr 07/17/17 07/17/17 07/17/17 11:11 11:23 13:54 Temperature 98.1 F Pulse Rate 73 Respiratory 20 16 16 Rate Blood Pressure 171/85 (mmHg) O2 Sat by Pulse 97 Oximetry 07/17/17 07/17/17 15:32 18:06 Temperature 97.9 F Pulse Rate 76 Respiratory 20 20 Rate Blood Pressure 141/69 (mmHg) O2 Sat by Pulse 98 Oximetry Oxygen Devices in Use Now: Nasal Cannula Appearance: MIddle aged female sitting up in bed, NAD Eyes: No Scleral Icterus Ears/Nose/Mouth/Throat: Mucous Membranes Moist Respiratory: Symmetrical Chest Expansion and Respiratory Effort, Clear to Auscultation Cardiovascular: NL Sounds; No Murmurs; No JVD, RRR, No Edema Abdominal: NL Sounds; No Tenderness; No Distention Extremities: No Clubbing, Cyanosis Skin: No Rash or Ulcers, No Nodules or Sclerosis Neurological: Alert and Oriented x 3 Result Diagrams: 07/16/17 05:30 07/16/17 05:30 Microbiology and Other Data: Microbiology 07/16/17 00:15 Nasal Screen MRSA (PCR)([facility]) - Final Nasal Mrsa Not Detected Assess/Plan/Problems-Billing Ms Glover is a 66 yo F who had had multiple recent admission for different issues who presents back to the ER just a few days after being discharged from [facility] with c/o inability to care for herself at home and was found to be in rapid afib. - Patient Problems (1) Atrial fibrillation with RVR Current Visit: Yes Status: Acute Code(s): I48.91 - UNSPECIFIED ATRIAL FIBRILLATION SNOMED Code(s): 701908155764339 Comment: The patient remains in NSR. Continue diltiazem CD and metoprolol tartrate. Start coumadin in addition to lovenox. Monitor for drop in H/H given recent GI bleed. (2) H/O: CVA (cerebrovascular accident) Current Visit: Yes Status: Acute Code(s): Z86.73 - PRSNL HX OF TIA (TIA), AND CEREB INFRC W/O RESID DEFICITS SNOMED Code(s): 382451321 Comment: Repeated CT yesterday and no evidence of new CVA. Continue plavix and start coumadin tonight in addition to lovenox. (3) Depression Current Visit: Yes Status: Chronic Code(s): F32.9 - MAJOR DEPRESSIVE DISORDER, SINGLE EPISODE, UNSPECIFIED SNOMED Code(s): 87659879 Comment: Continue cymbalta and seroquel. (4) Hypertension Current Visit: Yes Status: Chronic Code(s): I10 - ESSENTIAL (PRIMARY) HYPERTENSION SNOMED Code(s): 88045117 Comment: BP dropped yesterday afternoon. Continue current medication regimen. (5) HLD (hyperlipidemia) Current Visit: Yes Status: Chronic Code(s): E78.5 - HYPERLIPIDEMIA, UNSPECIFIED SNOMED Code(s): 95486543 Comment: Continue lipitor. (6) Hypothyroidism Current Visit: Yes Status: Chronic Code(s): E03.9 - HYPOTHYROIDISM, UNSPECIFIED SNOMED Code(s): 09582363 Comment: Continue synthroid 150mcg daily and repeat TSH in 2-4weeks. (7) Chronic headache Current Visit: Yes Status: Chronic Code(s): R51 - HEADACHE SNOMED Code(s) : 234465300 Comment: Continue prn tramadol and tylenol. (8) GERD (gastroesophageal reflux disease) Current Visit: Yes Status: Chronic Code(s): K21.9 - GASTRO-ESOPHAGEAL REFLUX DISEASE WITHOUT ESOPHAGITIS SNOMED Code(s): 362483857 Comment: Continue Protonix BID. (9) DVT prophylaxis Current Visit: Yes Status: Acute Code(s): ZRQ2086 - SNOMED Code(s): 518120441 Comment: billx (10) Full code status Current Visit: Yes Status: Acute Code(s): Z78.9 - OTHER SPECIFIED HEALTH STATUS SNOMED Code(s): 406949989 Comment:
[2017-07-17] MEDS: Warfarin TAB(*) 5 MG PO SCH (19:29)
[2017-07-17] MEDS: Mometasone 220 MCG MDI INH SCH (21:14)
[2017-07-17] MEDS: Albuterol HFA INHALER* 8 gm MDI INH PRN (21:18)
[2017-07-17] MEDS: QUEtiapine TAB* 100 MG PO SCH (21:43)
[2017-07-18] MEDS: traMADol TAB* 50 MG PO PRN ×3 (03:31→17:04)
[2017-07-18] MEDS: Levothyroxine TAB* 150 MCG TAB PO SCH (05:44)
[2017-07-18] MEDS: Acetaminophen TAB* 325 MG PO PRN ×2 (05:44→19:17)
[2017-07-18 05:49] LABS: Hematocrit 26 % (35-47); Hemoglobin 8.8 g/dl (12.0-16.0); Mean Corpuscular HGB Conc 34 g/dl (31-36); Mean Corpuscular Hemoglobin 31 pg (27-31); Mean Corpuscular Volume 90 fL (80-97); Mean Platelet Volume 9 um3 (7.4-10.4); Platelet Count 270 10^3/ul (150-450); Red Blood Count 2.87 10^6/ul (4.0-5.4); Red Cell Distribution Width 16 % (10.5-15); White Blood Count 6.2 10^3/ul (3.5-10.8)
[2017-07-18] MEDS: Enoxaparin(*) 60 MG/0.6 ML SYR SUBCUT SCH ×2 (08:30→20:19)
[2017-07-18] MEDS: Metoprolol Tartrate TAB* 25 MG PO SCH ×2 (08:31→20:20)
[2017-07-18] MEDS: Clopidogrel TAB* 75 MG PO SCH (08:31)
[2017-07-18] MEDS: DULoxetine DR CAP* 60 MG CAP.DR PO SCH (08:31)
[2017-07-18] MEDS: Diltiazem CD CAP* 120 MG PO SCH (08:31)
[2017-07-18] MEDS: CMCS: Pantoprazole TAB (NF) 40 MG TAB PO SCH ×2 (08:31→20:21)
--- NOTE | 2017-07-18 16:19 | PN ---
Subjective Date of Service: 07/18/17 Interval History: Patient complains of 10/10 headache without having received tramadol. Patient states that she has had few or no days this year where she has not taken abortive medication for a headache. Patient states that medication overuse headache has been discussed with her previously but becomes tearful when the prospect of tapering her medication for her headache is discussed. Patient denies palpitations, CP, N/V, diarrhea, abdominal pain, SOB, Dysuria, F/C, or other pain. Discussed [facility] placement with patient and she will think about placement but would still prefer to go home. Telemetry shows NSR without afib. Family History: Unchanged from Admission Social History: Unchanged from Admission Past Medical History: Unchanged from Admission Objective Active Medications: Acetaminophen (Tylenol Tab*) 650 mg PO Q4H PRN PRN Reason: FEVER/PAIN Last Admin: 07/18/17 05:44 Dose: 650 mg Al Hydrox/Mg Hydrox/Simethicone (Maalox Plus*) 30 ml PO Q6H PRN PRN Reason: INDIGESTION Last Admin: 07/16/17 04:32 Dose: 30 ml Albuterol (Ventolin 2.5 Mg/3 Ml Neb.Tracey*) 2.5 mg INH Q4H PRN PRN Reason: SOB/WHEEZING Albuterol (Ventolin Hfa Inhaler*) 2 puff INH Q4H PRN PRN Reason: SOB/WHEEZING Last Admin: 07/17/17 21:18 Dose: 2 puff Atorvastatin Calcium (Lipitor*) 40 mg PO 1700 [facility] Last Admin: 07/17/17 16:15 Dose: 40 mg Clopidogrel Bisulfate (Plavix Tab*) 75 mg PO DAILY [facility] Last Admin: 07/18/17 08:31 Dose: 75 mg Diltiazem HCl (Cardizem Cd Cap*) 120 mg PO DAILY [facility] Last Admin: 07/18/17 08:31 Dose: 120 mg Docusate Sodium (Colace Cap*) 100 mg PO BID PRN PRN Reason: CONSTIPATION Duloxetine HCl (Cymbalta Cap*) 60 mg PO DAILY [facility] Last Admin: 07/18/17 08:31 Dose: 60 mg Enoxaparin Sodium (Lovenox(*)) 35 mg SUBCUT BID [facility] Last Admin: 07/18/17 08:30 Dose: 35 mg Gabapentin (Neurontin Cap(*)) 300 mg PO TID PRN PRN Reason: PAIN Last Admin: 07/17/17 18:06 Dose: 300 mg Ipratropium [place] (Atrovent 0.5 Mg Neb.Tracey*) 0.5 mg INH QID PRN PRN Reason: SOB/WHEEZING Levothyroxine Sodium (Synthroid Tab*) 150 mcg PO DAILY@0600 [facility] Last Admin: 07/18/17 05:44 Dose: 150 mcg Magnesium Hydroxide (Milk Of Magnesia Liq*) 30 ml PO Q4H PRN PRN Reason: CONSTIPATION Metoprolol Tartrate (Lopressor Tab*) 12.5 mg PO BID [facility] Last Admin: 07/18/17 08:31 Dose: 12.5 mg Mometasone Furoate (Asmanex 220 Mcg Mdi *) 2 puff INH 2100 [facility] Last Admin: 07/17/17 21:14 Dose: 2 puff Ondansetron HCl (Zofran Inj*) 4 mg IV Q4H PRN PRN Reason: NAUSEA/VOMITING Pantoprazole Sodium (Protonix Tab (Nf)) 40 mg PO BID [facility] Last Admin: 07/18/17 08:31 Dose: 40 mg Quetiapine Fumarate (Seroquel Tab*) 100 mg PO BEDTIME [facility] Last Admin: 07/17/17 21:43 Dose: 100 mg Senna (Senokot Tab*) 1 tab PO BID PRN PRN Reason: CONSTIPATION Tramadol HCl (Ultram*) 50 mg PO Q6H PRN PRN Reason: PAIN Last Admin: 07/18/17 10:09 Dose: 50 mg Warfarin Sodium (Coumadin Tab(*)) 5 mg PO DAILY@1700 [facility] PRN Reason: Protocol Last Admin: 07/17/17 19:29 Dose: 5 mg Vital Signs - 8 hr 07/18/17 07/18/17 10:09 14:37 Respiratory 16 18 Rate Oxygen Devices in Use Now: None Appearance: Patient is a 66yo female who is bald and looks older than stated age. Eyes: No Scleral Icterus, PERRLA Ears/Nose/Mouth/Throat: NL Teeth, Lips, Gums, Clear Oropharnyx, Mucous Membranes Moist Neck: NL Appearance and Movements; NL JVP, Trachea Midline Respiratory: Symmetrical Chest Expansion and Respiratory Effort, Clear to Auscultation Cardiovascular: RRR, No Edema, - - Grade 3/6 holosystolic murmur heard best at apex. Abdominal: NL Sounds; No Tenderness; No Distention, No Hepatosplenomegaly Lymphatic: No Cervical Adenopathy Extremities: No Edema, No Clubbing, Cyanosis Skin: No Rash or Ulcers, No Nodules or Sclerosis Neurological: Alert and Oriented x 3, NL Sensation, NL Muscle Strength and Tone , - - CN II-XII intact. Result Diagrams: 07/18/17 05:20 07/18/17 05:20 Microbiology and Other Data: Microbiology 07/16/17 00:15 Nasal Screen MRSA (PCR)([facility]) - Final Nasal Mrsa Not Detected Assess/Plan/Problems-Billing Ms Glover is a 66 yo F who had had multiple recent admission for different issues who presents back to the ER just a few days after being discharged from [facility] with c/o inability to care for herself at home and was found to be in rapid afib. Patient is back in NSR. - Patient Problems (1) Atrial fibrillation with RVR Current Visit: Yes Status: Acute Code(s): I48.91 - UNSPECIFIED ATRIAL FIBRILLATION SNOMED Code(s): 358950173939449 Comment: The patient remains in NSR. Continue diltiazem CD and metoprolol tartrate. Start coumadin in addition to lovenox. Monitor for drop in H/H given recent GI bleed. (2) H/O: CVA (cerebrovascular accident) Current Visit: Yes Status: Acute Code(s): Z86.73 - PRSNL HX OF TIA (TIA), AND CEREB INFRC W/O RESID DEFICITS SNOMED Code(s): 712597939 Comment: Repeated CT no evidence of new CVA. Continue plavix and start coumadin tonight in addition to lovenox. (3) Chronic headache Current Visit: Yes Status: Chronic Code(s): R51 - HEADACHE SNOMED Code(s) : 571739620 Comment: Continue prn tramadol and tylenol. Patient should have tramadol decreased as this is likely medication overuse headache. (4) Depression Current Visit: Yes Status: Chronic Code(s): F32.9 - MAJOR DEPRESSIVE DISORDER, SINGLE EPISODE, UNSPECIFIED SNOMED Code(s): 24965025 Comment: Continue cymbalta and seroquel. (5) GERD (gastroesophageal reflux disease) Current Visit: Yes Status: Chronic Code(s): K21.9 - GASTRO-ESOPHAGEAL REFLUX DISEASE WITHOUT ESOPHAGITIS SNOMED Code(s): 989274194 Comment: Continue Protonix BID. (6) HLD (hyperlipidemia) Current Visit: Yes Status: Chronic Code(s): E78.5 - HYPERLIPIDEMIA, UNSPECIFIED SNOMED Code(s): 59062255 Comment: Continue lipitor. (7) Hypertension Current Visit: Yes Status: Chronic Code(s): I10 - ESSENTIAL (PRIMARY) HYPERTENSION SNOMED Code(s): 92971339 Comment: Fluctuating BP. Continue current regimen. (8) Hypothyroidism Current Visit: Yes Status: Chronic Code(s): E03.9 - HYPOTHYROIDISM, UNSPECIFIED SNOMED Code(s): 62626295 Comment: Continue synthroid 150mcg daily and repeat TSH in 2-4weeks. (9) CAD (coronary artery disease) Current Visit: No Status: Chronic Priority: High Code(s): I25.10 - ATHSCL HEART DISEASE OF [place] CORONARY ARTERY W/O ANG PCTRS SNOMED Code(s): 52609499 Comment: Known CAD with known lesion of LAD and total occlusion of Posterior decending artery. Not stentable. Plan for maximal medical therapy and ASA desensitization. Will attempt to set up with Dr. Quintanilla tomorrow for discharge. Continue beta luis f, Plavix, statin, and cardizem. (10) DVT prophylaxis Current Visit: Yes Status: Acute Code(s): QWS9011 - SNOMED Code(s): 490475811 Comment: lovenox to Warfarin (11) Full code status Current Visit: Yes Status: Acute Code(s): Z78.9 - OTHER SPECIFIED HEALTH STATUS SNOMED Code(s): 152265081 Comment: Status and Disposition: Patient is admitted inpatient. Patient cannot take care of herself at home. Should go to [facility].
[2017-07-18] MEDS: Warfarin TAB(*) 5 MG PO SCH (17:04)
[2017-07-18] MEDS: Atorvastatin* 40 MG TAB PO SCH (17:04)
[2017-07-18] MEDS ORDERED: Ketorolac INJ* 30 MG/ML 1 ML VIAL IV ONE (20:06)
[2017-07-18] MEDS ORDERED: LORazepam TAB(*) 0.5 MG PO ONE (20:07)
[2017-07-18] MEDS: QUEtiapine TAB* 100 MG PO SCH (20:20)
[2017-07-18] MEDS: Mometasone 220 MCG MDI INH SCH (22:30)
[2017-07-18] MEDS: Albuterol HFA INHALER* 8 gm MDI INH PRN (22:31)
[2017-07-19 05:57] LABS: ABS Basophils 0.1 10^3/ul (0-0.2); ABS Eosinophils 0.3 10^3/ul (0-0.6); ABS Lymphocytes 1.2 10^3/ul (1.0-4.8); ABS Monocytes 0.9 10^3/ul (0-0.8); ABS Neutrophils 3.6 10^3/ul (1.5-7.7); ABS Nucleated RBC 0 10^3/ul; Eosinophil % 5.2 % (0-6); Hematocrit 29 % (35-47); Hemoglobin 9.7 g/dl (12.0-16.0); Lymphocyte % 19.2 % (25-47); Mean Corpuscular HGB Conc 33 g/dl (31-36); Mean Corpuscular Hemoglobin 30 pg (27-31); Mean Corpuscular Volume 91 fL (80-97); Mean Platelet Volume 9 um3 (7.4-10.4); Nucleated Red Blood Cells % 0.1; Platelet Count 278 10^3/ul (150-450); Red Blood Count 3.21 10^6/ul (4.0-5.4); Red Cell Distribution Width 16 % (10.5-15); White Blood Count 6.1 10^3/ul (3.5-10.8)
[2017-07-19 06:16] LABS: INR 1.09 (0.77-1.02)
[2017-07-19 06:17] LABS: EGFR Non-African American 63.7 (>60)
[2017-07-19] MEDS: Levothyroxine TAB* 150 MCG TAB PO SCH (06:50)
--- NOTE | 2017-07-19 09:03 | PN ---
Subjective Date of Service: 07/19/17 Interval History: Feels good today, no complaints. She agrees she should probably go back to . Still complains of headache since May. No bleeding, palpitations, chest pain. Family History: Unchanged from Admission Social History: Unchanged from Admission Past Medical History: Unchanged from Admission Objective Active Medications: Acetaminophen (Tylenol Tab*) 650 mg PO Q4H PRN PRN Reason: FEVER/PAIN Last Admin: 07/18/17 19:17 Dose: 650 mg Al Hydrox/Mg Hydrox/Simethicone (Maalox Plus*) 30 ml PO Q6H PRN PRN Reason: INDIGESTION Last Admin: 07/16/17 04:32 Dose: 30 ml Albuterol (Ventolin 2.5 Mg/3 Ml Neb.Tracey*) 2.5 mg INH Q4H PRN PRN Reason: SOB/WHEEZING Albuterol (Ventolin Hfa Inhaler*) 2 puff INH Q4H PRN PRN Reason: SOB/WHEEZING Last Admin: 07/18/17 22:31 Dose: 2 puff Atorvastatin Calcium (Lipitor*) 40 mg PO 1700 [facility] Last Admin: 07/18/17 17:04 Dose: 40 mg Clopidogrel Bisulfate (Plavix Tab*) 75 mg PO DAILY [facility] Last Admin: 07/18/17 08:31 Dose: 75 mg Diltiazem HCl (Cardizem Cd Cap*) 120 mg PO DAILY [facility] Last Admin: 07/18/17 08:31 Dose: 120 mg Docusate Sodium (Colace Cap*) 100 mg PO BID PRN PRN Reason: CONSTIPATION Duloxetine HCl (Cymbalta Cap*) 60 mg PO DAILY [facility] Last Admin: 07/18/17 08:31 Dose: 60 mg Enoxaparin Sodium (Lovenox(*)) 35 mg SUBCUT BID [facility] Last Admin: 07/18/17 20:19 Dose: 35 mg Gabapentin (Neurontin Cap(*)) 300 mg PO TID PRN PRN Reason: PAIN Last Admin: 07/17/17 18:06 Dose: 300 mg Ipratropium [place] (Atrovent 0.5 Mg Neb.Tracey*) 0.5 mg INH QID PRN PRN Reason: SOB/WHEEZING Levothyroxine Sodium (Synthroid Tab*) 150 mcg PO DAILY@0600 [facility] Last Admin: 07/19/17 06:50 Dose: 150 mcg Magnesium Hydroxide (Milk Of Magnesia Liq*) 30 ml PO Q4H PRN PRN Reason: CONSTIPATION Magnesium Oxide (Magox 400 Tab*) 400 mg PO DAILY [facility] Metoprolol Tartrate (Lopressor Tab*) 25 mg PO BID [facility] Mometasone Furoate (Asmanex 220 Mcg Mdi *) 2 puff INH 2100 [facility] Last Admin: 07/18/17 22:30 Dose: 2 puff Ondansetron HCl (Zofran Inj*) 4 mg IV Q4H PRN PRN Reason: NAUSEA/VOMITING Pantoprazole Sodium (Protonix Tab (Nf)) 40 mg PO BID [facility] Last Admin: 07/18/17 20:21 Dose: 40 mg Quetiapine Fumarate (Seroquel Tab*) 100 mg PO BEDTIME [facility] Last Admin: 07/18/17 20:20 Dose: 100 mg Senna (Senokot Tab*) 1 tab PO BID PRN PRN Reason: CONSTIPATION Tramadol HCl (Ultram*) 50 mg PO Q6H PRN PRN Reason: PAIN Last Admin: 07/18/17 17:04 Dose: 50 mg Warfarin Sodium (Coumadin Tab(*)) 5 mg PO DAILY@1700 [facility] PRN Reason: Protocol Last Admin: 07/18/17 17:04 Dose: 5 mg Vital Signs - 8 hr 07/19/17 07/19/17 07/19/17 03:16 07:21 07:50 Temperature 97.5 F 97.8 F Pulse Rate 64 66 Respiratory 18 16 16 Rate Blood Pressure 170/79 182/90 (mmHg) O2 Sat by Pulse 97 96 Oximetry Oxygen Devices in Use Now: None Appearance: bald, well appearing Eyes: No Scleral Icterus Ears/Nose/Mouth/Throat: NL Teeth, Lips, Gums Neck: NL Appearance and Movements; NL JVP Respiratory: Symmetrical Chest Expansion and Respiratory Effort, Clear to Auscultation Cardiovascular: NL Sounds; No Murmurs; No JVD, RRR Abdominal: NL Sounds; No Tenderness; No Distention Lymphatic: No Cervical Adenopathy Extremities: No Edema Skin: No Rash or Ulcers Neurological: Alert and Oriented x 3, - - left upper extremity 4/5 strength Result Diagrams: 07/19/17 05:16 07/19/17 05:16 Microbiology and Other Data: Microbiology 07/16/17 00:15 Nasal Screen MRSA (PCR)([facility]) - Final Nasal Mrsa Not Detected Assess/Plan/Problems-Billing Ms Glover is a 66 yo F who had had multiple recent admission for different issues who presents back to the ER just a few days after being discharged from [facility] with c/o inability to care for herself at home and was found to be in rapid afib. Patient is back in NSR. - Patient Problems (1) Atrial fibrillation with RVR Current Visit: Yes Status: Acute Code(s): I48.91 - UNSPECIFIED ATRIAL FIBRILLATION SNOMED Code(s): 723282296578097 Comment: Remains in NSR. Continue diltiazem CD and metoprolol tartrate. Coumadin was started on 07/17 in addition to lovenox (chosen due to recent GI bleed for reversibility). Her GI bleed was related to NSAID use for headaches, which she is no longer using, so I'll plan to transition to eliquis given her history of inability to follow up with medical care. INR not therapeutic, but may continue to rise in next few days after 2 doses of warfarin, so this will need to be monitored. (2) H/O: CVA (cerebrovascular accident) Current Visit: Yes Status: Acute Code(s): Z86.73 - PRSNL HX OF TIA (TIA), AND CEREB INFRC W/O RESID DEFICITS SNOMED Code(s): 779780706 Comment: Given this finding of afib, I suspect her old CVA was related to unknown afib. Repeated CT no evidence of new CVA. Switch to eliquis today. (3) Chronic headache Current Visit: Yes Status: Chronic Code(s): R51 - HEADACHE SNOMED Code(s) : 916552549 Comment: Continue prn tramadol and tylenol. Suspected medication overuse headache; this has been discussed with her but she is resistant to tapering the tramadol. Symptoms are migraine-like, but triptans are contraindicated given her CAD. Consult neurology today. (4) Hypertension Current Visit: Yes Status: Chronic Code(s): I10 - ESSENTIAL (PRIMARY) HYPERTENSION SNOMED Code(s): 37334877 Comment: poorly controlled on cardizem and metoprolol, however her bp dropped 07/16 on increased dose of metoprolol. Increase cardizem today. (5) Anemia Current Visit: No Status: Acute Priority: High Code(s): D64.9 - ANEMIA, UNSPECIFIED SNOMED Code(s): 690997761 Comment: stable; recent gastritis in setting of nsaid use. no evidence of bleeding. (6) Home environment related disease Current Visit: No Status: Acute Priority: High Code(s): R69 - ILLNESS, UNSPECIFIED SNOMED Code(s): 26546274 Comment: plan for CR at discharge (7) CAD (coronary artery disease) Current Visit: No Status: Chronic Priority: High Code(s): I25.10 - ATHSCL HEART DISEASE OF [place] CORONARY ARTERY W/O ANG PCTRS SNOMED Code(s): 32845720 Comment: Known CAD with known lesion of LAD and total occlusion of Posterior decending artery. Not stentable. Plan for maximal medical therapy and ASA desensitization. Will attempt to set up with Dr. Quintanilla. Continue beta luis f, Plavix, statin, and cardizem. (8) History of lung cancer Current Visit: No Status: Chronic Priority: High Code(s): Z85.118 - PERSONAL HISTORY OF MALIGNANT NEOPLASM OF BRONCHUS AND LUNG SNOMED Code(s): 710905638 Comment: Need f/u ct in 5 months, previous ct with small nodule. Follows with Dr. Cloud Status and Disposition: Patient is admitted inpatient. Agrees to [facility].
[2017-07-19] MEDS ORDERED: Diltiazem CD CAP* 120 MG PO SCH (09:08)
[2017-07-19] MEDS: traMADol TAB* 50 MG PO PRN ×3 (09:21→21:45)
[2017-07-19] MEDS: Acetaminophen TAB* 325 MG PO PRN ×3 (09:23→21:46)
[2017-07-19] MEDS: Enoxaparin(*) 60 MG/0.6 ML SYR SUBCUT SCH ×2 (10:18→20:52)
[2017-07-19] MEDS: DULoxetine DR CAP* 60 MG CAP.DR PO SCH (10:19)
[2017-07-19] MEDS: CMCS: Pantoprazole TAB (NF) 40 MG TAB PO SCH ×2 (10:19→20:52)
[2017-07-19] MEDS: Diltiazem CD CAP* 120 MG PO SCH ×2 (10:19→10:26)
[2017-07-19] MEDS: Clopidogrel TAB* 75 MG PO SCH (10:20)
[2017-07-19] MEDS: Metoprolol Tartrate TAB* 25 MG PO SCH ×2 (10:20→20:52)
[2017-07-19] MEDS: Magnesium Oxide TAB* 400 MG PO SCH (10:20)
[2017-07-19] MEDS: Warfarin TAB(*) 5 MG PO SCH (16:25)
[2017-07-19] MEDS: Atorvastatin* 40 MG TAB PO SCH (16:25)
[2017-07-19] MEDS: Albuterol HFA INHALER* 8 gm MDI INH PRN (16:31)
[2017-07-19] MEDS: Albuterol 2.5 MG/3 ML NEB.SOL* (0.083%) INH PRN (17:59)
[2017-07-19] MEDS: Mometasone 220 MCG MDI INH SCH ×2 (18:02→20:16)
[2017-07-19] MEDS: QUEtiapine TAB* 100 MG PO SCH (20:52)
[2017-07-20] MEDS: traMADol TAB* 50 MG PO PRN ×4 (03:30→22:04)
[2017-07-20] MEDS: Acetaminophen TAB* 325 MG PO PRN ×4 (03:31→22:04)
[2017-07-20] MEDS: Levothyroxine TAB* 150 MCG TAB PO SCH (05:33)
[2017-07-20] MEDS: Metoprolol Tartrate TAB* 25 MG PO SCH ×2 (09:41→22:03)
[2017-07-20] MEDS: CMCS: Pantoprazole TAB (NF) 40 MG TAB PO SCH ×2 (09:41→22:03)
[2017-07-20] MEDS: Magnesium Oxide TAB* 400 MG PO SCH (09:41)
[2017-07-20] MEDS: Clopidogrel TAB* 75 MG PO SCH (09:41)
[2017-07-20] MEDS: Enoxaparin(*) 60 MG/0.6 ML SYR SUBCUT SCH (09:42)
[2017-07-20] MEDS: DULoxetine DR CAP* 60 MG CAP.DR PO SCH (09:42)
[2017-07-20] MEDS: Diltiazem CD CAP* 120 MG PO SCH (11:30)
[2017-07-20] MEDS: Albuterol 2.5 MG/3 ML NEB.SOL* (0.083%) INH PRN (11:53)
--- NOTE | 2017-07-20 15:16 | PN ---
Subjective Date of Service: 07/20/17 Interval History: no overnight events. she is tearful today, frustrated, but says she understands she cannot go back home. she understands she is not safe there and should be in a better environment. she agrees to consider [facility] again. no chest pain, sob, melena, hematochezia. Family History: Unchanged from Admission Social History: Unchanged from Admission Past Medical History: Unchanged from Admission Objective Active Medications: Acetaminophen (Tylenol Tab*) 650 mg PO Q4H PRN PRN Reason: FEVER/PAIN Last Admin: 07/20/17 09:41 Dose: 650 mg Al Hydrox/Mg Hydrox/Simethicone (Maalox Plus*) 30 ml PO Q6H PRN PRN Reason: INDIGESTION Last Admin: 07/16/17 04:32 Dose: 30 ml Albuterol (Ventolin Hfa Inhaler*) 2 puff INH Q4H PRN PRN Reason: SOB/WHEEZING Last Admin: 07/19/17 16:31 Dose: 2 puff Albuterol (Ventolin 2.5 Mg/3 Ml Neb.Tracey*) 2.5 mg INH Q4H [facility] Atorvastatin Calcium (Lipitor*) 40 mg PO 1700 [facility] Last Admin: 07/19/17 16:25 Dose: 40 mg Clopidogrel Bisulfate (Plavix Tab*) 75 mg PO DAILY [facility] Last Admin: 07/20/17 09:41 Dose: 75 mg Diltiazem HCl (Cardizem Cd Cap*) 240 mg PO 1015 [facility] Last Admin: 07/20/17 11:30 Dose: Not Given Docusate Sodium (Colace Cap*) 100 mg PO BID PRN PRN Reason: CONSTIPATION Duloxetine HCl (Cymbalta Cap*) 60 mg PO DAILY [facility] Last Admin: 07/20/17 09:42 Dose: 60 mg Enoxaparin Sodium (Lovenox(*)) 35 mg SUBCUT BID [facility] Last Admin: 07/20/17 09:42 Dose: 35 mg Gabapentin (Neurontin Cap(*)) 300 mg PO TID PRN PRN Reason: PAIN Last Admin: 07/17/17 18:06 Dose: 300 mg Ipratropium [place] (Atrovent 0.5 Mg Neb.Tracey*) 0.5 mg INH QID PRN PRN Reason: SOB/WHEEZING Levothyroxine Sodium (Synthroid Tab*) 150 mcg PO DAILY@0600 [facility] Last Admin: 07/20/17 05:33 Dose: 150 mcg Magnesium Hydroxide (Milk Of Magnesia Liq*) 30 ml PO Q4H PRN PRN Reason: CONSTIPATION Magnesium Oxide (Magox 400 Tab*) 400 mg PO DAILY [facility] Last Admin: 07/20/17 09:41 Dose: 400 mg Metoprolol Tartrate (Lopressor Tab*) 25 mg PO BID [facility] Last Admin: 07/20/17 09:41 Dose: 25 mg Mometasone Furoate (Asmanex 220 Mcg Mdi *) 2 puff INH 2100 [facility] Last Admin: 07/19/17 20:16 Dose: Not Given Ondansetron HCl (Zofran Inj*) 4 mg IV Q4H PRN PRN Reason: NAUSEA/VOMITING Pantoprazole Sodium (Protonix Tab (Nf)) 40 mg PO BID [facility] Last Admin: 07/20/17 09:41 Dose: 40 mg Quetiapine Fumarate (Seroquel Tab*) 100 mg PO BEDTIME [facility] Last Admin: 07/19/17 20:52 Dose: 100 mg Senna (Senokot Tab*) 1 tab PO BID PRN PRN Reason: CONSTIPATION Tramadol HCl (Ultram*) 50 mg PO Q6H PRN PRN Reason: PAIN Last Admin: 07/20/17 09:41 Dose: 50 mg Warfarin Sodium (Coumadin Tab(*)) 5 mg PO DAILY@1700 [facility] PRN Reason: Protocol Last Admin: 07/19/17 16:25 Dose: 5 mg Vital Signs - 8 hr 07/20/17 07/20/17 07/20/17 08:00 08:29 09:41 Temperature 98.2 F Pulse Rate 64 Respiratory 18 16 18 Rate Blood Pressure 141/75 (mmHg) O2 Sat by Pulse 99 Oximetry 07/20/17 07/20/17 07/20/17 11:13 11:17 11:58 Temperature 98.3 F Pulse Rate 56 56 81 Respiratory 16 14 Rate Blood Pressure 163/76 165/83 (mmHg) O2 Sat by Pulse 98 97 Oximetry 07/20/17 12:30 Temperature Pulse Rate Respiratory 16 Rate Blood Pressure (mmHg) O2 Sat by Pulse Oximetry Oxygen Devices in Use Now: None Appearance: alert, well appearing, tearful Eyes: No Scleral Icterus Ears/Nose/Mouth/Throat: NL Teeth, Lips, Gums Neck: NL Appearance and Movements; NL JVP Respiratory: Symmetrical Chest Expansion and Respiratory Effort, - - few scattered wheezes Cardiovascular: RRR, - - systolic murmur lusb Abdominal: NL Sounds; No Tenderness; No Distention Lymphatic: No Cervical Adenopathy Extremities: No Edema Skin: No Rash or Ulcers Neurological: Alert and Oriented x 3 Result Diagrams: 07/19/17 05:16 07/19/17 05:16 Microbiology and Other Data: Microbiology 07/16/17 00:15 Nasal Screen MRSA (PCR)([facility]) - Final Nasal Mrsa Not Detected Assess/Plan/Problems-Billing Ms Glover is a 66 yo F who had had multiple recent admission for different issues who presents back to the ER just a few days after being discharged from [facility] with c/o inability to care for herself at home and was found to be in rapid afib. Patient is back in NSR. - Patient Problems (1) Atrial fibrillation with RVR Current Visit: Yes Status: Acute Code(s): I48.91 - UNSPECIFIED ATRIAL FIBRILLATION SNOMED Code(s): 750470321245588 Comment: Remains in NSR. Continue diltiazem CD and metoprolol tartrate. Eliquis given her elevated [id number] (2) H/O: CVA (cerebrovascular accident) Current Visit: Yes Status: Acute Code(s): Z86.73 - PRSNL HX OF TIA (TIA), AND CEREB INFRC W/O RESID DEFICITS SNOMED Code(s): 368464737 Comment: Given this finding of afib, I suspect her old CVA was related to unknown afib. Repeated CT no evidence of new CVA. Continue eliquis (3) Chronic headache Current Visit: Yes Status: Chronic Code(s): R51 - HEADACHE SNOMED Code(s) : 662411136 Comment: Suspected medication overuse headache; this has been discussed with her but she is resistant to tapering the tramadol. Symptoms are migraine-like, but triptans are contraindicated given her CAD. (4) Hypertension Current Visit: Yes Status: Chronic Code(s): I10 - ESSENTIAL (PRIMARY) HYPERTENSION SNOMED Code(s): 49019480 Comment: poorly controlled on cardizem and metoprolol, however bradycardic this morning, so cardizem was held. (5) Anemia Current Visit: No Status: Acute Priority: High Code(s): D64.9 - ANEMIA, UNSPECIFIED SNOMED Code(s): 922514141 Comment: stable; recent gastritis in setting of nsaid use. no evidence of bleeding. (6) Home environment related disease Current Visit: No Status: Acute Priority: High Code(s): R69 - ILLNESS, UNSPECIFIED SNOMED Code(s): 79799853 Comment: plan for [facility] at discharge (7) CAD (coronary artery disease) Current Visit: No Status: Chronic Priority: High Code(s): I25.10 - ATHSCL HEART DISEASE OF [place] CORONARY ARTERY W/O ANG PCTRS SNOMED Code(s): 90046527 Comment: Known CAD with known lesion of LAD and total occlusion of Posterior decending artery. Not stentable. Plan for maximal medical therapy and ASA desensitization. Will attempt to set up with Dr. Quintanilla. Continue beta luis f, Plavix, statin, and cardizem. (8) History of lung cancer Current Visit: No Status: Chronic Priority: High Code(s): Z85.118 - PERSONAL HISTORY OF MALIGNANT NEOPLASM OF BRONCH[place] AND LUNG SNOMED Code(s): 739158179 Comment: Need f/u ct in 5 months, previous ct with small nodule. Follows with Dr. Cloud Status and Disposition: Patient is admitted inpatient. Agrees to [facility].
[2017-07-20] MEDS: Atorvastatin* 40 MG TAB PO SCH (15:36)
[2017-07-20] MEDS: Albuterol 2.5 MG/3 ML NEB.SOL* (0.083%) INH SCH ×3 (15:51→19:33)
[2017-07-20] MEDS: Mometasone 220 MCG MDI INH SCH (19:30)
[2017-07-20] MEDS: Apixaban* 5 MG TAB PO SCH (22:03)
[2017-07-20] MEDS: QUEtiapine TAB* 100 MG PO SCH (22:03)
[2017-07-20] MEDS ORDERED: Albuterol 2.5 MG/3 ML NEB.SOL* (0.083%) INH PRN (23:27)
[2017-07-21] MEDS: traMADol TAB* 50 MG PO PRN ×2 (03:26→10:04)
[2017-07-21] MEDS: Acetaminophen TAB* 325 MG PO PRN ×2 (03:27→10:05)
[2017-07-21] MEDS: Levothyroxine TAB* 150 MCG TAB PO SCH (05:54)
[2017-07-21] MEDS: Apixaban* 5 MG TAB PO SCH (09:08)
[2017-07-21] MEDS: DULoxetine DR CAP* 60 MG CAP.DR PO SCH (09:08)
[2017-07-21] MEDS: Clopidogrel TAB* 75 MG PO SCH (09:09)
[2017-07-21] MEDS: Magnesium Oxide TAB* 400 MG PO SCH (09:09)
[2017-07-21] MEDS: CMCS: Pantoprazole TAB (NF) 40 MG TAB PO SCH (09:09)
[2017-07-21] MEDS: Metoprolol Tartrate TAB* 25 MG PO SCH (09:09)
[2017-07-21] MEDS: Diltiazem CD CAP* 120 MG PO SCH (10:05)
[2017-07-21 11:46] VITALS: BP 158/79
--- NOTE | 2017-07-21 12:18 | DS ---
CC: Guerrero Gtz NP * DISCHARGE SUMMARY DATE OF ADMISSION: 07/15/2017 DATE OF DISCHARGE: 07/21/2017 PRINCIPAL DISCHARGE DIAGNOSES: 1. Atrial fibrillation with RVR. 2. Poor home situation. SECONDARY DISCHARGE DIAGNOSES: 1. History of CVA. 2. History of coronary artery disease. 3. Chronic obstructive pulmonary disease. 4. Chronic pain syndrome. 5. Anxiety. 6. History of GI bleed. 7. History of lung cancer. PHYSICAL EXAM: At the time of discharge, this occurred on 07/21/17 at 10 a.m. Temperature 98.4, heart rate 63, respiratory rate 16, pulse ox 98% on room air, blood pressure 166/86. General: Alert, anxious female in no distress. She occasionally becomes tearful throughout our interview, but responds to my questions approximately and expresses good insight about her condition. HEENT: Pupils equal, round and reactive to light. No nystagmus. No conjunctival injection. Moist oral mucosa. No pharyngeal exudates or erythema. She wears a wig. Neck: No JVD. No cervical lymphadenopathy. Chest: Regular rate and rhythm. A systolic murmur heard over the left upper sternal border with radiation to the apex. Lungs are clear bilaterally with a few end expiratory wheezes. No rhonchi or rales and good air movement is heard. Abdomen: Soft, nontender, nondistended. No guarding or rebound. Extremities: No rashes, no edema, no ulcers. She does have mildly decreased strength in her left wrist. BRIEF HOSPITAL COURSE BY PROBLEM: 1. Atrial fibrillation with RVR. This began while she was in the Emergency Department and was an incidental finding. She believes that she has had history of atrial dysrhythmias, however no EKGs in our system show such. At admission she was admitted to the ICU for Cardizem drip and she converted spontaneously to normal sinus rhythm. Throughout her hospitalization, after the first night, she remained in normal sinus rhythm and was transitioned back to metoprolol 25 mg b.i.d. which is switched to metoprolol XL 50 mg daily at the time of discharge, as well as diltiazem 240 mg daily with good heart rate control. She did have some hypotension and bradycardia on this regimen, so her Cardizem was decreased to 120 mg daily of the extended release version, and she remains in normal sinus rhythm with good control and improved blood pressures. Regarding anticoagulation she does have history of a CVA and I suspect this had been related to paroxysmal atrial fibrillation that had not been discovered at that time. Therefore, she does warrant therapeutic anticoagulation. Due to her recent GI bleed in May she was started on Lovenox at admission which she tolerated well. Of note, her GI bleed was due to gastritis in the setting of NSAID overuse which has been resolved. Therefore, after she tolerated Lovenox well for several days without any rebleeding and a stable hemoglobin, she was switched to Eliquis. An echocardiogram done on 06/08/17 showed a normal LV and a normal EF. This was not repeated. 2. Failure at home. Ms. Glover had just been discharged from [facility] several days prior to her admission here and she actually came to the Emergency Department because she felt she could not care for herself at home and had no propane. This is the second time this same scenario has occurred for her. In May she had recently been discharged from [facility] when she came back to the Emergency Department unable to care for herself at home. On this admission she agrees that she is unsafe at home and agrees to skilled nursing placement at [facility], so this has been arranged by Case Management. 3. History of CVA. As mentioned above this most likely related to paroxysmal atrial fibrillation. She does have some residual deficit with left wrist weakness. She has an allergy to aspirin so she was continued on Plavix, statin and Eliquis was added on this admission. 4. Medication overuse headache. She has had a headache since the beginning of May. At the time of her last admission she had been overusing Fioricet so this was tapered off; however, at this time she had been overusing tramadol so we are tapering this. In addition, I have requested a Neurology followup appointment for her which is scheduled with Dr. Mccauley on 08/03/17 at 10:30 a.m. 5. Coronary artery disease. Again, she is allergic to aspirin, so she was continued on Plavix, statin and metoprolol. 6. History of lung cancer. She follows with Dr. Cloud and needs a repeat CT in September 2017. She should see Dr. Cloud in the interim. 7. Chronic obstructive pulmonary disease. She had no exacerbation during this admission, has continued on p.r.n. nebulizers. DISPOSITION: Ms. Glover is discharged to [facility] on 07/21/17. FOLLOWUP NEEDED: 1. Ms. Glover has a followup appointment with Dr. Mccauley on 08/03/17 at 10: 30 a.m. at [facility]. 2. Please schedule followup appointment for Ms. Glover with Dr. Cloud in July. Ms. Glover should return to the Emergency Department with any evidence of bleeding including dark stools, or other symptoms including chest pain, palpitations, shortness of breath. [id number]/[facility] #: [id number] MTDD
== END 2017-07-21 14:06 | DRG 309 ==
LOC: ED 17:53 → ICU 20:31 → MEDTELE 07-16 08:06
PROVIDERS: ADMIT Pediatrics; ATTEND Internal Medicine
DX: I48.0 Paroxysmal atrial fibrillation (principal); I69.354 Hemiplegia and hemiparesis following cerebral infarction affecting left non-dominant side; E87.1 Hypo-osmolality and hyponatremia; I11.9 Hypertensive heart disease without heart failure; J44.9 Chronic obstructive pulmonary disease, unspecified; F41.9 Anxiety disorder, unspecified; G89.4 Chronic pain syndrome; I25.10 Atherosclerotic heart disease of native coronary artery without angina pectoris; E78.5 Hyperlipidemia, unspecified; E03.9 Hypothyroidism, unspecified; Z86.711 Personal history of pulmonary embolism; Z85.118 Personal history of other malignant neoplasm of bronchus and lung; Z79.02 Long term (current) use of antithrombotics/antiplatelets; Z79.899 Other long term (current) drug therapy; Z88.6 Allergy status to analgesic agent; Z91.040 Latex allergy status; F17.210 Nicotine dependence, cigarettes, uncomplicated; G44.40 Drug-induced headache, not elsewhere classified, not intractable; T40.4X5D Adverse effect of other synthetic narcotics, subsequent encounter; D64.9 Anemia, unspecified; K21.9 Gastro-esophageal reflux disease without esophagitis
CPT/HCPCS: 36415; 70450; 71045; 80048; 80053; 80061; 82272; 83605; 83735; 83880; 84443; 84484; 85025; 85027; 85610; 85730; 87641; 93005; 94640; 94760; 99285; 99406; A9270-GY; J1160; J1650; J1885; J2270; J2405; J3475

== ENCOUNTER 2017-07-24 18:49 | Emergency (ER) | payer MEDICARE ==
[2017-07-24] MEDS ORDERED: methylPREDNISolone 125 MG* 2 ML VIAL IV ONE (19:35)
[2017-07-24] MEDS ORDERED: Albuterol/Ipratropium NEB.SOL* Albuterol 2.5 MG/Ipratropium 0.5 MG 3 ML INH ONE (19:35)
--- NOTE | 2017-07-24 20:06 | RAD ---
Indication: History of lung CA. Single frontal view of the chest performed at 1948 hours was reviewed. Comparison is made with previous exam dated July 15, 2017. Postoperative changes with superior retraction of the left hilum is noted. Lung barron are clear. No mediastinal shift is noted. No changes noted since July 15, 2017 IMPRESSION: POSTOPERATIVE CHANGES LEFT UPPER LOBE WITH RETRACTION OF THE MEHRAN. NO CHANGES NOTED SINCE JULY 15, 2017.
[2017-07-24 20:37] LABS: ABS Basophils 0.1 10^3/ul (0-0.2); ABS Eosinophils 0.1 10^3/ul (0-0.6); ABS Lymphocytes 1.9 10^3/ul (1.0-4.8); ABS Monocytes 1.1 10^3/ul (0-0.8); ABS Neutrophils 9.6 10^3/ul (1.5-7.7); ABS Nucleated RBC 0 10^3/ul; Eosinophil % 0.5 % (0-6); Hematocrit 31 % (35-47); Hemoglobin 10.3 g/dl (12.0-16.0); Lymphocyte % 15.2 % (25-47); Mean Corpuscular HGB Conc 33 g/dl (31-36); Mean Corpuscular Hemoglobin 29 pg (27-31); Mean Corpuscular Volume 89 fL (80-97); Mean Platelet Volume 9 um3 (7.4-10.4); Nucleated Red Blood Cells % 0; Platelet Count 327 10^3/ul (150-450); Red Blood Count 3.53 10^6/ul (4.0-5.4); Red Cell Distribution Width 17 % (10.5-15); White Blood Count 12.7 10^3/ul (3.5-10.8)
[2017-07-24] MEDS ORDERED: traMADol TAB* 50 MG PO ONE (20:48)
[2017-07-24] MEDS ORDERED: oxyCODONE/Acetamin 5/325 MG* TAB PO ONE (20:51)
[2017-07-24 20:52] LABS: INR 1.09 (0.77-1.02)
[2017-07-24] MEDS ORDERED: NS 0.9% 1000 ML* 1,000 ML IV ONE (21:19)
[2017-07-24 21:45] LABS: Urine Appearance Clear; Urine Blood Negative (Negative); Urine Color Straw; Urine Ketones Negative (Negative); Urine Protein 2+(100 mg/dL) (Negative); Urine Specific Gravity 1.003 (1.010-1.030); Urine Urobilinogen Negative (Negative)
--- NOTE | 2017-07-25 00:34 | ED ---
Juan Winkler Jennifer, scribed for Robbi Arriaga on 07/24/17 at 1942 . HPI Chest Pain - HPI Summary HPI Summary: The patient is a 66 year old female who presents with chest pressure that began this morning. She denies nausea, vomiting, and dizziness. She has a history of CT, hypertension, hypothyroidism, emphysema, COPD, and anxiety. - History of Current Complaint Time Seen by Provider: 07/24/17 19:18 Hx Obtained From: Patient Onset/Duration: Started Hours Ago - This morning, Still Present Timing: Constant Initial Severity: Mild Current Severity: Mild Chest Pain Radiates: No Character: Pressure/Squeezing Aggravating Factor(s): Nothing Alleviating Factor(s): Nothing Associated Signs and Symptoms: Positive: Negative - Nausea, vomiting, dizziness , Other: - Anxiety - Additional Pertinent History Primary Care Physician: [id number] - Allergy/Home Medications Allergies/Adverse Reactions: Allergies Allergy/AdvReac Type Severity Reaction Status Date / Time aspirin Allergy Severe Anaphylatic Verified 07/16/17 02:25 Shock latex Allergy Mild Rash Verified 07/16/17 02:25 PMH/Surg Hx/FS Hx/Imm Hx Endocrine/Hematology History: Reports: Hx Thyroid Disease - hypothyroid, Other Endocrine/Hematological Disorders - Benign goiter Denies: Hx Bone Marrow Disease, Hx Diabetes, Hx Systemic Lupus Erythematosus Cardiovascular History: Reports: Hx Angina, Hx Hypercholesterolemia - was high before cancer,now off meds., Hx Hypertension, Hx Myocardial Infarction - NSTEMI , Other Cardiovascular Problems/Disorders - patent foramen ovale; Murmur, Denies: Hx Congestive Heart Failure, Hx Coronary Artery Disease, Hx Pacemaker /ICD, Hx Valvular Heart Disease Respiratory History: Reports: Hx Asthma, Hx Chronic Obstructive Pulmonary Disease (COPD), Hx Lung Cancer - Left upper lobectomy, Hx Pneumonia, Other Respiratory Problems/Disorders - lung cancer, LOBECTOMY 09/11/11, Emphysema GI History: Reports: Hx Gastroesophageal Reflux Disease, Hx Hiatal Hernia, Other GI Disorders - colitis. 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, Hx Osteoporosis, Hx Scoliosis, Other Musculoskeletal History - scoliosis Denies: Hx Rheumatoid Arthritis Sensory History: Reports: Hx Cataracts - PATIENT STATES BEGINING OF CATARACTS LEFT EYE, Hx Contacts or Glasses, Hx Hearing Problem - right Denies: Hx Hearing Aid Opthamlomology History: Reports: Hx Cataracts - PATIENT STATES BEGINING OF CATARACTS LEFT EYE, Hx Contacts or Glasses Neurological History: Reports: Hx CVA - in 05/16, Hx Headaches, Hx Migraine - Rare post menopause Psychiatric History: Reports: Hx Anxiety, Hx Depression, Hx Community Mental Health Tx, Hx Substance Abuse - opioids Denies: Hx Panic Disorder, Hx Inpatient Treatment - Cancer History Cancer Type, Location and Year: LUNG CA, DIAGNOSED July 2012 Hx Chemotherapy: Yes Hx Radiation Therapy: No Hx Palliative Cancer Treatment: No - Surgical History Surgery Procedure, Year, and Place: LEFT UPPER LUNG REMOVED 09/2012, HYSTERECTOMY , tonsillectomy Hx Anesthesia Reactions: No - Immunization History Date of Tetanus Vaccine: utd Date of Influenza Vaccine: utd Infectious Disease History: Denies: Hx of Known/Suspected MRSA, Traveled Outside the [place] in Last 30 Days - Family History Known Family History: Positive: Cardiac Disease - Sudden cardiac arrest (father) , Other - son -- glioblastoma. UC mother. Fhx of colitis. - Social History Alcohol Use: None Hx Substance Use: No Substance Use Type: Reports: None Substance Use Comment - Amount & Last Used: percocet Hx Tobacco Use: Yes Smoking Status (MU): Heavy Every Day Tobacco Smoker Type: Cigarettes Amount Used/How Often: 1/2 pack a day Length of Time of Smoking/Using Tobacco: 47 years Have You Smoked in the Last Year: Yes Review of Systems Positive: Chest Pain Negative: Vomiting, Nausea Neurological: Negative - Dizziness All Other Systems Reviewed And Are Negative: Yes Physical Exam - Summary Physical Exam Summary: Appearance: Well appearing, no pain distress Skin: warm, dry, reflects adequate perfusion Head/face: normal Eyes: EOMI, ADORE ENT: normal Neck: supple, non-tender Respiratory: wheezes, breath sounds present Cardiovascular: RRR, pulses symmetrical, systolic murmur. Abdomen: non-tender, soft Bowel: present Musculoskeletal: normal, strength/ROM intact Neuro: normal, sensory motor intact, A&Ox3 Vital Signs On Initial Exam: Initial Vitals BP 168/95 07/24/17 19:33 Diagnostics - Vital Signs Vital Signs Temp Pulse Resp BP Pulse Ox 07/24/17 23:00 74 19 94 07/24/17 22:00 92 18 96 07/24/17 21:30 95 20 181/90 98 07/24/17 21:00 90 21 168/85 97 07/24/17 20:36 92 17 179/99 99 07/24/17 20:31 206/98 07/24/17 20:28 20 07/24/17 20:00 80 13 170/91 100 07/24/17 19:58 22 07/24/17 19:57 81 16 98 07/24/17 19:37 99.5 F 80 19 168/95 99 07/24/17 19:34 80 21 98 07/24/17 19:33 168/95 - Laboratory Lab Results: Lab Results 07/24/17 07/24/17 07/24/17 Range/Units 20:20 20:20 20:20 WBC 12.7 H (3.5-10.8) 10^3/ul RBC 3.53 L (4.0-5.4) 10^6/ul Hgb 10.3 L (12.0-16.0) g/dl Hct 31 L (35-47) % MCV 89 (80-97) fL MCH 29 (27-31) pg MCHC 33 (31-36) g/dl RDW 17 H (10.5-15) % Plt Count 327 (150-450) 10^3/ul MPV 9 (7.4-10.4) um3 Neut % (Auto) 75.6 (38-83) % Lymph % (Auto) 15.2 L (25-47) % Pope % (Auto) 8.3 H (0-7) % Eos % (Auto) 0.5 (0-6) % Baso % (Auto) 0.4 (0-2) % Absolute Neuts (auto) 9.6 H (1.5-7.7) 10^3/ul Absolute Lymphs (auto) 1.9 (1.0-4.8) 10^3/ul Absolute Monos (auto) 1.1 H (0-0.8) 10^3/ul Absolute Eos (auto) 0.1 (0-0.6) 10^3/ul Absolute Basos (auto) 0.1 (0-0.2) 10^3/ul Absolute Nucleated RBC 0 10^3/ul Nucleated RBC % 0 INR (Anticoag Therapy) 1.09 H (0.77-1.02) APTT 40.3 H (26.0-36.3) seconds Sodium (133-145) mmol/L Potassium (3.5-5.0) mmol/L Chloride (101-111) mmol/L Carbon Dioxide (22-32) mmol/L Anion Gap (2-11) mmol/L BUN (6-24) mg/dL Creatinine (0.51-0.95) mg/dL Est GFR ( Amer) (>60) Est GFR (Non-Af Amer) (>60) BUN/Creatinine Ratio (8-20) Glucose (70-100) mg/dL Lactic Acid (0.5-2.0) mmol/L Calcium (8.6-10.3) mg/dL Total Bilirubin (0.2-1.0) mg/dL AST (13-39) U/L ALT (7-52) U/L Alkaline Phosphatase (34-104) U/L Troponin I (<0.04) ng/mL B-Natriuretic Peptide 186 H ( - 100) pg/mL Total Protein (6.4-8.9) g/dL Albumin (3.2-5.2) g/dL Globulin (2-4) g/dL Albumin/Globulin Ratio (1-3) Urine Color Urine Appearance Urine pH (5-9) Ur Specific Eugene (1.010-1.030) Urine Protein (Negative) Urine Ketones (Negative) Urine Blood (Negative) Urine Nitrate (Negative) Urine Bilirubin (Negative) Urine Urobilinogen (Negative) Ur Leukocyte Esterase (Negative) Urine WBC (Auto) (Absent) Urine RBC (Auto) (Absent) Ur Squamous Epith Cells (Absent) Urine Bacteria (Absent) Urine Glucose (Negative) 07/24/17 07/24/17 07/24/17 Range/Units 20:20 20:20 21:25 WBC (3.5-10.8) 10^3/ul RBC (4.0-5.4) 10^6/ul Hgb (12.0-16.0) g/dl Hct (35-47) % MCV (80-97) fL MCH (27-31) pg MCHC (31-36) g/dl RDW (10.5-15) % Plt Count (150-450) 10^3/ul MPV (7.4-10.4) um3 Neut % (Auto) (38-83) % Lymph % (Auto) (25-47) % Pope % (Auto) (0-7) % Eos % (Auto) (0-6) % Baso % (Auto) (0-2) % Absolute Neuts (auto) (1.5-7.7) 10^3/ul Absolute Lymphs (auto) (1.0-4.8) 10^3/ul Absolute Monos (auto) (0-0.8) 10^3/ul Absolute Eos (auto) (0-0.6) 10^3/ul Absolute Basos (auto) (0-0.2) 10^3/ul Absolute Nucleated RBC 10^3/ul Nucleated RBC % INR (Anticoag Therapy) (0.77-1.02) APTT (26.0-36.3) seconds Sodium 121 L (133-145) mmol/L Potassium 3.9 (3.5-5.0) mmol/L Chloride 89 L (101-111) mmol/L Carbon Dioxide 21 L (22-32) mmol/L Anion Gap 11 (2-11) mmol/L BUN 13 (6-24) mg/dL Creatinine 0.84 (0.51-0.95) mg/dL Est GFR ( Amer) 87.5 (>60) Est GFR (Non-Af Amer) 68.0 (>60) BUN/Creatinine Ratio 15.5 (8-20) Glucose 102 H (70-100) mg/dL Lactic Acid 1.1 (0.5-2.0) mmol/L Calcium 9.6 (8.6-10.3) mg/dL Total Bilirubin 0.40 (0.2-1.0) mg/dL AST 18 (13-39) U/L ALT 15 (7-52) U/L Alkaline Phosphatase 75 (34-104) U/L Troponin I 0.00 (<0.04) ng/mL B-Natriuretic Peptide ( - 100) pg/mL Total Protein 7.2 (6.4-8.9) g/dL Albumin 4.1 (3.2-5.2) g/dL Globulin 3.1 (2-4) g/dL Albumin/Globulin Ratio 1.3 (1-3) Urine Color Straw Urine Appearance Clear Urine pH 7.0 (5-9) Ur Specific Eugene 1.003 L (1.010-1.030) Urine Protein 2+(100 mg/dl) H (Negative) Urine Ketones Negative (Negative) Urine Blood Negative (Negative) Urine Nitrate Negative (Negative) Urine Bilirubin Negative (Negative) Urine Urobilinogen Negative (Negative) Ur Leukocyte Esterase Negative (Negative) Urine WBC (Auto) Absent (Absent) Urine RBC (Auto) Absent (Absent) Ur Squamous Epith Cells Present H (Absent) Urine Bacteria Absent (Absent) Urine Glucose Negative (Negative) 07/24/17 Range/Units 23:00 WBC (3.5-10.8) 10^3/ul RBC (4.0-5.4) 10^6/ul Hgb (12.0-16.0) g/dl Hct (35-47) % MCV (80-97) fL MCH (27-31) pg MCHC (31-36) g/dl RDW (10.5-15) % Plt Count (150-450) 10^3/ul MPV (7.4-10.4) um3 Neut % (Auto) (38-83) % Lymph % (Auto) (25-47) % Pope % (Auto) (0-7) % Eos % (Auto) (0-6) % Baso % (Auto) (0-2) % Absolute Neuts (auto) (1.5-7.7) 10^3/ul Absolute Lymphs (auto) (1.0-4.8) 10^3/ul Absolute Monos (auto) (0-0.8) 10^3/ul Absolute Eos (auto) (0-0.6) 10^3/ul Absolute Basos (auto) (0-0.2) 10^3/ul Absolute Nucleated RBC 10^3/ul Nucleated RBC % INR (Anticoag Therapy) (0.77-1.02) APTT (26.0-36.3) seconds Sodium (133-145) mmol/L Potassium (3.5-5.0) mmol/L Chloride (101-111) mmol/L Carbon Dioxide (22-32) mmol/L Anion Gap (2-11) mmol/L BUN (6-24) mg/dL Creatinine (0.51-0.95) mg/dL Est GFR ( Amer) (>60) Est GFR (Non-Af Amer) (>60) BUN/Creatinine Ratio (8-20) Glucose (70-100) mg/dL Lactic Acid (0.5-2.0) mmol/L Calcium (8.6-10.3) mg/dL Total Bilirubin (0.2-1.0) mg/dL AST (13-39) U/L ALT (7-52) U/L Alkaline Phosphatase (34-104) U/L Troponin I 0.00 (<0.04) ng/mL B-Natriuretic Peptide ( - 100) pg/mL Total Protein (6.4-8.9) g/dL Albumin (3.2-5.2) g/dL Globulin (2-4) g/dL Albumin/Globulin Ratio (1-3) Urine Color Urine Appearance Urine pH (5-9) Ur Specific Eugene (1.010-1.030) Urine Protein (Negative) Urine Ketones (Negative) Urine Blood (Negative) Urine Nitrate (Negative) Urine Bilirubin (Negative) Urine Urobilinogen (Negative) Ur Leukocyte Esterase (Negative) Urine WBC (Auto) (Absent) Urine RBC (Auto) (Absent) Ur Squamous Epith Cells (Absent) Urine Bacteria (Absent) Urine Glucose (Negative) Result Diagrams: 07/24/17 20:20 07/24/17 20:20 Lab Statement: Any lab studies that have been ordered have been reviewed, and results considered in the medical decision making process. - Radiology CXR Xray Interpretation: No Acute Changes - POSTOPERATIVE CHANGES LEFT UPPER LOBE WITH RETRACTION OF THE MEHRAN. NO CHANGES NOTED SINCE JULY 15, 2017. Dr. Arriaga has reviewed this report. Radiology Interpretation Completed By: Radiologist - CT Brain CT CT Interpretation: Positive (See Comments) - There is cerebral atrophy. Chronic microvascular ischemic changes are noted. There is a small chronic right frontal CVA. No acute intracranial hemorrhage or acute infarction. The visualized aspect of the paranasal sinuses and mastoid air cells are remarkable for mild layering fluid in bilateral maxillary antra suggestive of sinusitis. Dr. Arriaga has reviewed this report. CT Interpretation Completed By: Radiologist - EKG 19:32 Cardiac Rate: NL EKG Rhythm: Sinus Rhythm - 81 BPM EKG Interpretation: No acute changes Chest Pain Course/Dx - Course Assessment/Plan: The patient is a 66 year old female who presents with chest pressure and shortness of breath that began this morning. In the ED course the patient was given Duoneb, Solumedrol, Percocet, and Ultram. Bloodwork and Urinalysis were obtained. EKG labs show no acute CT. CXR and Brain CT were obtained. The patient is diagnosed with COPD and atypical chest pain. Discussed with Dr. Farrell. Recommended to discharge after two troponins. - Chest Pain Differential Diagnosis/HQI/PQRI: Acute CT, ACS, CHF, Lower Respiratory Infection - Diagnoses Provider Diagnoses: COPD (chronic obstructive pulmonary disease), Atypical chest pain - Provider Notifications Discussed Care Of Patient With: Timothy Melton Time Discussed With Above Provider: 11:00 Instructed by Provider To: Other - Recommended to discharge after two troponins. Discharge - Discharge Plan Condition: Stable Disposition: HOME Prescriptions: predniSONE TAB* [Deltasone TAB*] 50 mg PO ONCE #5 tab Patient Education Materials: Chest Pain (ED), COPD (Chronic Obstructive Pulmonary Disease) (ED) Referrals: Guerrero Gtz COMMUNICATIONS STATION MANAGER [Primary Care Provider] - 3 Days Additional Instructions: Follow up with your primary care physician in three days. Return to the emergency department for any new or worsening symptoms. The documentation as recorded by the Juan crawford Jennifer accurately reflects the service I personally performed and the decisions made by Bart jacobo Emmanuel.
[2017-07-25 00:42] VITALS: BP 153/58
--- NOTE | 2017-07-25 07:37 | CONSULT ---
Consult Consult: PCP: Salvador Gtz NP Date/Time of Evaluation: 0200 Reason for Consult: chest pain HPI: Mrs Glover is a 66YO female HX adenoCA s/p L upper lobectomy, CAD/NSTEMI( 04/2017)/cath with 100% RCA & 60-65% mid-LAD lesion (no stent), & COPD continuing to smoke who was admitted 05/18/2017 & 06/01/2017 for chest pain. She returns today reporting PMedHx adenoCA L lung s/p upper lobectomy & chemoTX CAD/NSTEMI (04/2017 100% RCA & 60-65% mid-LAD lesion [no stent]) COPD HX CVA w/ chronic LUE weakness PFO HTN HLD hypothyroidism chronic LBP HX opioid & benzodiazepine abuse hiatal hernia tobacco use disorder Ambulatory Orders Levothyroxine TAB* [Synthroid 25 MCG TAB*] 175 mcg PO DAILY 02/09/16 Albuterol 2.5MG/3ML (0.083%)* [Ventolin 2.5 MG/3 ML NEB.ZACHARY*] 2.5 mg INH Q4H PRN 05/03/16 Albuterol HFA INHALER* [Ventolin HFA Inhaler*] 2 puff INH Q4H PRN 05/03/16 Ipratropium 0.5MG/2.5ML NEB* [Atrovent 0.5 MG NEB.ZACHARY*] 0.5 mg INH QID PRN 05/[address] CAP* [Cymbalta CAP*] 60 mg PO DAILY 02/07/17 Fluticasone HFA 220 mcg(NF) [Flovent Hfa 220 Mcg(NF)] 1 puff INH BID 02/07/17 Atorvastatin* [Lipitor 40 MG*] 40 mg PO 1700 #30 tab 05/07/17 Clopidogrel TAB* [Plavix TAB*] 75 mg PO DAILY #30 tab 05/07/17 Gabapentin CAP(*) [Neurontin 300 CAP(*)] 300 mg PO TID PRN 05/17/17 Nabumetone TAB* [Relafen TAB*] 750 mg PO TID PRN 05/17/17 Diltiazem CD CAP* [Cardizem CD CAP*] 120 mg PO DAILY #30 cap.cd 06/02/17 Metoprolol Succinate XL TAB* [Toprol XL TAB*] 50 mg PO DAILY #30 tab.xl Pantoprazole TAB (NF) [Protonix TAB (NF)] 40 mg PO BID #60 tab 06/02/17 QUEtiapine TAB* [Seroquel TAB*] 100 mg PO BEDTIME tab 06/11/17 Albuterol 2.5MG/3ML (0.083%)* [Ventolin 2.5 MG/3 ML NEB.ZACHARY*] 2.5 mg INH Q4H PRN neb.soln 07/21/17 Apixaban* [Eliquis*] 5 mg PO BID tab 07/21/17 traMADol TAB* [Ultram*] 25 mg PO Q12HR #0 tab MDD 3 tab 07/21/17 predniSONE TAB* [Deltasone TAB*] 50 mg PO ONCE #5 tab 07/24/17 Allergies aspirin Allergy (Severe, Verified 07/16/17 02:25) Anaphylatic Shock latex Allergy (Mild, Verified 07/16/17 02:25) Rash PSurgHx L upper lobectomy for adenoCA tonsillectomy hysterectomy SocHx: 06/01 - 3 PPD cigarettes w/ ~25PYHX, denies alcohol, HX opioid & benzodiazepine abuse currently abstinent; full code status FamHx: Mother: ulcerative colitis; Father: passed of [place] in his 50s; 1 child passed of suicide and another passed of complications of alcoholism ROS: as above, otherwise reviewed and all were negative Constitutional: NAD, normally developed, frail, mildly ill-appearing white female vitals: Vital Signs Temp 37.2 C 07/25/17 00:40 Pulse 83 07/25/17 00:40 Resp 20 07/25/17 00:40 BP 153/58 07/25/17 00:40 Pulse Ox 96 07/25/17 00:40 Intake & Output 07/24/17 07/24/17 07/25/17 11:59 23:59 11:59 Weight 58.967 kg HEENM: atraumatic; sclera/conjunctiva: non-icteric/clear; hearing: clinically intact; oropharynx: clear, mucosa dry Neck: soft tissue: non-tender; thyroid: no mass Pulmonary: clear to auscultation B, fair aeration, no accessory muscle use CV: RR/RR, normal S1S2, no carotid bruit, no jugular venous distention, 2+ B DP/ PT, no edema Abdominal: soft, non-distended, non-tender, no rebound/guarding/rigidity, normoactive bowel sounds, no hepatosplenomegaly or masses, no costovertebral angle tenderness Musculoskeletal: general: grossly intact; gait: stable Integumental: normal appearance and texture Psychiatric orientation: AA&O to PPS affect: calm mood: cooperative eye contact: good content: reliable responses: timely insight: poor Testing: Lab Results 07/24/17 07/24/17 07/24/17 Range/Units 20:20 20:20 20:20 WBC 12.7 H (3.5-10.8) 10^3/ul RBC 3.53 L (4.0-5.4) 10^6/ul Hgb 10.3 L (12.0-16.0) g/dl Hct 31 L (35-47) % MCV 89 (80-97) fL MCH 29 (27-31) pg MCHC 33 (31-36) g/dl RDW 17 H (10.5-15) % Plt Count 327 (150-450) 10^3/ul MPV 9 (7.4-10.4) um3 Neut % (Auto) 75.6 (38-83) % Lymph % (Auto) 15.2 L (25-47) % [place] % (Auto) 8.3 H (0-7) % Eos % (Auto) 0.5 (0-6) % Baso % (Auto) 0.4 (0-2) % Absolute Neuts (auto) 9.6 H (1.5-7.7) 10^3/ul Absolute Lymphs (auto) 1.9 (1.0-4.8) 10^3/ul Absolute Monos (auto) 1.1 H (0-0.8) 10^3/ul Absolute Eos (auto) 0.1 (0-0.6) 10^3/ul Absolute Basos (auto) 0.1 (0-0.2) 10^3/ul Absolute Nucleated RBC 0 10^3/ul Nucleated RBC % 0 INR (Anticoag Therapy) 1.09 H (0.77-1.02) APTT 40.3 H (26.0-36.3) seconds Sodium (133-145) mmol/L Potassium (3.5-5.0) mmol/L Chloride (101-111) mmol/L Carbon Dioxide (22-32) mmol/L Anion Gap (2-11) mmol/L BUN (6-24) mg/dL Creatinine (0.51-0.95) mg/dL Est GFR ( Amer) (>60) Est GFR (Non-Af Amer) (>60) BUN/Creatinine Ratio (8-20) Glucose (70-100) mg/dL Lactic Acid (0.5-2.0) mmol/L Calcium (8.6-10.3) mg/dL Total Bilirubin (0.2-1.0) mg/dL AST (13-39) U/L ALT (7-52) U/L Alkaline Phosphatase (34-104) U/L Troponin I (<0.04) ng/mL B-Natriuretic Peptide 186 H ( - 100) pg/mL Total Protein (6.4-8.9) g/dL Albumin (3.2-5.2) g/dL Globulin (2-4) g/dL Albumin/Globulin Ratio (1-3) Urine Color Urine Appearance Urine pH (5-9) Ur Specific Bowie (1.010-1.030) Urine Protein (Negative) Urine Ketones (Negative) Urine Blood (Negative) Urine Nitrate (Negative) Urine Bilirubin (Negative) Urine Urobilinogen (Negative) Ur Leukocyte Esterase (Negative) Urine WBC (Auto) (Absent) Urine RBC (Auto) (Absent) Ur Squamous Epith Cells (Absent) Urine Bacteria (Absent) Urine Glucose (Negative) 07/24/17 07/24/17 07/24/17 Range/Units 20:20 20:20 21:25 WBC (3.5-10.8) 10^3/ul RBC (4.0-5.4) 10^6/ul Hgb (12.0-16.0) g/dl Hct (35-47) % MCV (80-97) fL MCH (27-31) pg MCHC (31-36) g/dl RDW (10.5-15) % Plt Count (150-450) 10^3/ul MPV (7.4-10.4) um3 Neut % (Auto) (38-83) % Lymph % (Auto) (25-47) % [place] % (Auto) (0-7) % Eos % (Auto) (0-6) % Baso % (Auto) (0-2) % Absolute Neuts (auto) (1.5-7.7) 10^3/ul Absolute Lymphs (auto) (1.0-4.8) 10^3/ul Absolute Monos (auto) (0-0.8) 10^3/ul Absolute Eos (auto) (0-0.6) 10^3/ul Absolute Basos (auto) (0-0.2) 10^3/ul Absolute Nucleated RBC 10^3/ul Nucleated RBC % INR (Anticoag Therapy) (0.77-1.02) APTT (26.0-36.3) seconds Sodium 121 L (133-145) mmol/L Potassium 3.9 (3.5-5.0) mmol/L Chloride 89 L (101-111) mmol/L Carbon Dioxide 21 L (22-32) mmol/L Anion Gap 11 (2-11) mmol/L BUN 13 (6-24) mg/dL Creatinine 0.84 (0.51-0.95) mg/dL Est GFR ( Amer) 87.5 (>60) Est GFR (Non-Af Amer) 68.0 (>60) BUN/Creatinine Ratio 15.5 (8-20) Glucose 102 H (70-100) mg/dL Lactic Acid 1.1 (0.5-2.0) mmol/L Calcium 9.6 (8.6-10.3) mg/dL Total Bilirubin 0.40 (0.2-1.0) mg/dL AST 18 (13-39) U/L ALT 15 (7-52) U/L Alkaline Phosphatase 75 (34-104) U/L Troponin I 0.00 (<0.04) ng/mL B-Natriuretic Peptide ( - 100) pg/mL Total Protein 7.2 (6.4-8.9) g/dL Albumin 4.1 (3.2-5.2) g/dL Globulin 3.1 (2-4) g/dL Albumin/Globulin Ratio 1.3 (1-3) Urine Color Straw Urine Appearance Clear Urine pH 7.0 (5-9) Ur Specific Bowie 1.003 L (1.010-1.030) Urine Protein 2+(100 mg/dl) H (Negative) Urine Ketones Negative (Negative) Urine Blood Negative (Negative) Urine Nitrate Negative (Negative) Urine Bilirubin Negative (Negative) Urine Urobilinogen Negative (Negative) Ur Leukocyte Esterase Negative (Negative) Urine WBC (Auto) Absent (Absent) Urine RBC (Auto) Absent (Absent) Ur Squamous Epith Cells Present H (Absent) Urine Bacteria Absent (Absent) Urine Glucose Negative (Negative) 07/24/17 Range/Units 23:00 WBC (3.5-10.8) 10^3/ul RBC (4.0-5.4) 10^6/ul Hgb (12.0-16.0) g/dl Hct (35-47) % MCV (80-97) fL MCH (27-31) pg MCHC (31-36) g/dl RDW (10.5-15) % Plt Count (150-450) 10^3/ul MPV (7.4-10.4) um3 Neut % (Auto) (38-83) % Lymph % (Auto) (25-47) % [place] % (Auto) (0-7) % Eos % (Auto) (0-6) % Baso % (Auto) (0-2) % Absolute Neuts (auto) (1.5-7.7) 10^3/ul Absolute Lymphs (auto) (1.0-4.8) 10^3/ul Absolute Monos (auto) (0-0.8) 10^3/ul Absolute Eos (auto) (0-0.6) 10^3/ul Absolute Basos (auto) (0-0.2) 10^3/ul Absolute Nucleated RBC 10^3/ul Nucleated RBC % INR (Anticoag Therapy) (0.77-1.02) APTT (26.0-36.3) seconds Sodium (133-145) mmol/L Potassium (3.5-5.0) mmol/L Chloride (101-111) mmol/L Carbon Dioxide (22-32) mmol/L Anion Gap (2-11) mmol/L BUN (6-24) mg/dL Creatinine (0.51-0.95) mg/dL Est GFR ( Amer) (>60) Est GFR (Non-Af Amer) (>60) BUN/Creatinine Ratio (8-20) Glucose (70-100) mg/dL Lactic Acid (0.5-2.0) mmol/L Calcium (8.6-10.3) mg/dL Total Bilirubin (0.2-1.0) mg/dL AST (13-39) U/L ALT (7-52) U/L Alkaline Phosphatase (34-104) U/L Troponin I 0.00 (<0.04) ng/mL B-Natriuretic Peptide ( - 100) pg/mL Total Protein (6.4-8.9) g/dL Albumin (3.2-5.2) g/dL Globulin (2-4) g/dL Albumin/Globulin Ratio (1-3) Urine Color Urine Appearance Urine pH (5-9) Ur Specific Bowie (1.010-1.030) Urine Protein (Negative) Urine Ketones (Negative) Urine Blood (Negative) Urine Nitrate (Negative) Urine Bilirubin (Negative) Urine Urobilinogen (Negative) Ur Leukocyte Esterase (Negative) Urine WBC (Auto) (Absent) Urine RBC (Auto) (Absent) Ur Squamous Epith Cells (Absent) Urine Bacteria (Absent) Urine Glucose (Negative) ECG, personally reviewed: NSR rate 81, no ischemia CXR, personally reviewed: IMPRESSION: POSTOPERATIVE CHANGES LEFT UPPER LOBE WITH RETRACTION OF THE MEHRAN. NO CHANGES NOTED SINCE JULY 15, 2017. CT brain WO, personally reviewed: FINDINGS: There is cerebral atrophy. Chronic microvascular ischemic changes are noted. There is a small chronic right frontal CVA. No acute intracranial hemorrhage or acute infarction. The visualized aspect of the paranasal sinuses and mastoid air cells are remarkable for mild layering fluid in bilateral maxillary antra suggestive of sinusitis. Impression: 66F HX adenoCA lung, COPD, & CAD/NSTEMI/cath showing 100% RCA & 60- 65% LAD (no stents) presents with chest pain for r/o ACS DIAGNOSIS & PLAN Primary chest pain r/o ACS : as she has had an NST in Apr 2017 and observations for chest pain since, it was advised to perform a 2nd troponin, discharge if negative, and follow up with her family services specialist in the following week, return for recurrent chest pain/SOB /N/V/sweats/palpitations/light-headedness or other concerning symptoms she feels warrants an emergency evaluation. Secondary PFO : no acute issues HX CVA w/ chronic LUE weakness COPD HTN HLD hypothyroidism chronic LBP hiatal hernia/GERD
--- NOTE | 2017-07-25 08:23 | RAD ---
Indication: Confusion. CT of the brain was performed without IV contrast. Comparison is made with previous exam dated July 16, 2017. Ventricular structures are midline. No midline shift is noted. Periventricular lucency consistent with chronic ischemic White matter change is noted. Hypodensity in the right frontal area likely represents old right frontal lobe infarct. There is no intracranial mass or hemorrhage. Small calcification is noted in the left parafalcine region consistent with a small meningioma. This is unchanged from previous exam. IMPRESSION: No acute hemorrhage or infarct is noted. Stable tiny calcified meningioma in the left parafalcine
== END 2017-07-25 01:18 | disposition home or self-care (01) ==
LOC: ED 18:49
DX: J44.9 Chronic obstructive pulmonary disease, unspecified (principal); R07.89 Other chest pain; I25.2 Old myocardial infarction; Z86.79 Personal history of other diseases of the circulatory system; F17.210 Nicotine dependence, cigarettes, uncomplicated
CPT/HCPCS: 36415; 70450; 71045; 80053; 81003; 81015; 83605; 83880; 84484; 85025; 85610; 85730; 87040; 87077; 87150; 87205; 93005; 94640; 96374; 99284; A9270-GY; J2930

== ENCOUNTER 2017-08-03 23:07 | Inpatient (IN) | payer MEDICARE ==
[2017-08-03] MEDS ORDERED: NS 0.9% 1000 ML* 1,000 ML IV ONE (23:51)
[2017-08-03] MEDS ORDERED: Albuterol/Ipratropium NEB.SOL* Albuterol 2.5 MG/Ipratropium 0.5 MG 3 ML INH ONE (23:56)
[2017-08-03] MEDS ORDERED: Albuterol 2.5 MG/3 ML NEB.SOL* (0.083%) INH ONE (23:56)
[2017-08-03] MEDS ORDERED: Magnesium Sulfate 2 GM IV* 2 GM/50 ML BAG IVPB ONE (23:57)
[2017-08-03] MEDS ORDERED: methylPREDNISolone 125 MG* 2 ML VIAL IV ONE (23:57)
[2017-08-03] MEDS ORDERED: Piperacillin/Tazobac ADVAN(*) 3.375 GM in NS 0.9% 100 ML* 100 ML IVPB ONE (23:57)
[2017-08-03] MEDS ORDERED: LORazepam INJ* 2 MG/ML 1 ML VIAL IV PUSH ONE (23:58)
[2017-08-04 01:18] LABS: Hematocrit 27 % (35-47); Hemoglobin 8.7 g/dl (12.0-16.0); Mean Corpuscular HGB Conc 33 g/dl (31-36); Mean Corpuscular Hemoglobin 29 pg (27-31); Mean Corpuscular Volume 90 fL (80-97); Mean Platelet Volume 8 um3 (7.4-10.4); Platelet Count 393 10^3/ul (150-450); Red Blood Count 2.95 10^6/ul (4.0-5.4); Red Cell Distribution Width 17 % (10.5-15)
[2017-08-04 01:33] LABS: EGFR Non-African American 51.5 (>60)
[2017-08-04 01:48] LABS: ABS Basophils 0.1 10^3/ul (0-0.2); ABS Eosinophils 0.1 10^3/ul (0-0.6); ABS Lymphocytes 1.8 10^3/ul (1.0-4.8); ABS Monocytes 1.2 10^3/ul (0-0.8); ABS Neutrophils 13.4 10^3/ul (1.5-7.7); ABS Nucleated RBC 0 10^3/ul; Eosinophil % 0.6 % (0-6); Nucleated Red Blood Cells % 0
--- NOTE | 2017-08-04 02:38 | ED ---
Ry Winkler Abhishek, scribed for Carolina Weber MD on 08/04/17 at 0047 . Respiratory - HPI Summary HPI Summary: This patient is a 66 year old F presenting to [facility] with a chief complaint of shortness of breath since the past week. The pt states the SOB has worsened today. Pt previously arrived ALS by [facility] for SOB. Pt has pertinent hx of COPD. She also states she has cold-like symptoms and a productive cough with sputum. Pt reports using 3L of oxygen at home. Symptoms aggravated by nothing. Symptoms alleviated by nothing. - History of Current Complaint Chief Complaint: EDRespiratoryDistress Stated Complaint: DIFF BREATHING Time Seen by Provider: 08/03/17 23:31 Hx Obtained From: Patient Onset/Duration: Gradual Onset, Lasting Weeks - one week Timing: Constant Character: Cough (Productive) - with sputum Aggravating Factor(s): Nothing Alleviating Factor(s): Nothing Associated Signs and Symptoms: SOB, Wheezing - Allergy/Home Medications Allergies/Adverse Reactions: Allergies Allergy/AdvReac Type Severity Reaction Status Date / Time aspirin Allergy Severe Anaphylatic Verified 07/16/17 02:25 Shock latex Allergy Mild Rash Verified 07/16/17 02:25 PMH/Surg Hx/FS Hx/Imm Hx Endocrine/Hematology History: Reports: Hx Thyroid Disease - hypothyroid, Other Endocrine/Hematological Disorders - Benign goiter Denies: Hx Bone Marrow Disease, Hx Diabetes, Hx Systemic Lupus Erythematosus Cardiovascular History: Reports: Hx Angina, Hx Hypercholesterolemia - was high before cancer,now off meds., Hx Hypertension, Hx Myocardial Infarction - NSTEMI , Other Cardiovascular Problems/Disorders - patent foramen ovale; Murmur, Denies: Hx Congestive Heart Failure, Hx Coronary Artery Disease, Hx Pacemaker /ICD, Hx Valvular Heart Disease Respiratory History: Reports: Hx Asthma, Hx Chronic Obstructive Pulmonary Disease (COPD), Hx Lung Cancer - Left upper lobectomy, Hx Pneumonia, Other Respiratory Problems/Disorders - lung cancer, LOBECTOMY 09/11/11, Emphysema GI History: Reports: Hx Gastroesophageal Reflux Disease, Hx Hiatal Hernia, Other GI Disorders - colitis. 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, Hx Osteoporosis, Hx Scoliosis, Other Musculoskeletal History - scoliosis Denies: Hx Rheumatoid Arthritis Sensory History: Reports: Hx Cataracts - PATIENT STATES BEGINING OF CATARACTS LEFT EYE, Hx Contacts or Glasses, Hx Hearing Problem - right Denies: Hx Hearing Aid Opthamlomology History: Reports: Hx Cataracts - PATIENT STATES BEGINING OF CATARACTS LEFT EYE, Hx Contacts or Glasses Neurological History: Reports: Hx CVA - in 05/16, Hx Headaches, Hx Migraine - Rare post menopause Psychiatric History: Reports: Hx Anxiety, Hx Depression, Hx Community Mental Health Tx, Hx Substance Abuse - opioids Denies: Hx Panic Disorder, Hx Inpatient Treatment - Cancer History Cancer Type, Location and Year: LUNG CA, DIAGNOSED July 2012 Hx Chemotherapy: Yes Hx Radiation Therapy: No Hx Palliative Cancer Treatment: No - Surgical History Surgery Procedure, Year, and Place: LEFT UPPER LUNG REMOVED 09/2012, HYSTERECTOMY , tonsillectomy Hx Anesthesia Reactions: No - Immunization History Date of Tetanus Vaccine: utd Date of Influenza Vaccine: utd Infectious Disease History: No Infectious Disease History: Denies: Hx of Known/Suspected MRSA, Traveled Outside the [place] in Last 30 Days - Family History Known Family History: Positive: Cardiac Disease - Sudden cardiac arrest (father) , Other - son -- glioblastoma. UC mother. Fhx of colitis. - Social History Alcohol Use: None Hx Substance Use: No Substance Use Type: Reports: None Substance Use Comment - Amount & Last Used: percocet Hx Tobacco Use: Yes Smoking Status (MU): Heavy Every Day Tobacco Smoker Type: Cigarettes Amount Used/How Often: 1/2 pack a day Length of Time of Smoking/Using Tobacco: 47 years Have You Smoked in the Last Year: Yes Review of Systems Positive: Other - "cold-like symptoms" Eyes: Negative ENT: Negative Cardiovascular: Negative Positive: Shortness Of Breath, Cough - productive with sputum Gastrointestinal: Negative Genitourinary: Negative Musculoskeletal: Negative Skin: Negative Neurological: Negative Psychological: Normal All Other Systems Reviewed And Are Negative: Yes Physical Exam - Summary Physical Exam Summary: VITAL SIGNS: Reviewed. GENERAL: ~Patient is a well-developed and nourished (FEMALE) who is lying comfortable in the stretcher. Patient is not in any acute respiratory distress. HEAD AND FACE: No signs of trauma. No ecchymosis, hematomas or skull depressions. No sinus tenderness. EYES: PERRLA, EOMI x 2, No injected conjunctiva, no nystagmus. EARS: Hearing grossly intact. Ear canals and tympanic membranes are within normal limits. MOUTH: Oropharynx within normal limits. NECK: Supple, trachea is midline, no adenopathy, no JVD, no carotid bruit, no c- spine tenderness, neck with full ROM. CHEST: Symmetric, no tenderness at palpation LUNGS: decreased breath sounds, Bilateral end expiratory wheezes CVS: Tachycardia ABDOMEN: Soft, non-tender. No signs of distention. No rebound no guarding, and no masses palpated. Bowel sounds are normal. EXTREMITIES: FROM in all major joints, no edema, no cyanosis or clubbing. NEURO: Alert and oriented x 3. No acute neurological deficits. Speech is normal and follows commands. SKIN: Dry and warm Triage Information Reviewed: Yes Vital Signs On Initial Exam: Initial Vitals Pulse Pulse Ox 123 100 08/03/17 23:24 08/03/17 23:24 Vital Signs Reviewed: Yes Diagnostics - Vital Signs Vital Signs Temp Pulse Resp BP Pulse Ox 08/03/17 23:26 99.3 F 117 32 110/69 88 08/03/17 23:25 110/69 08/03/17 23:24 123 100 - Laboratory Result Diagrams: 08/04/17 01:10 08/04/17 01:10 Lab Statement: Any lab studies that have been ordered have been reviewed, and results considered in the medical decision making process. - Radiology Chest X-ray Radiology Interpretation Completed By: ED Physician - CXR reveals shows questionable lower lobe infiltrate. - EKG 0216 EKG Rhythm: Sinus Tachycardia - 123 bpm EKG Interpretation: Right axis deviation, nonspecific T-wave changes Disposition - Course Course Of Treatment: The pt is a 66 y/o female presenting to the [facility] with a chief complaint of SOB. Pt has pertinent PMHx of COPD and states she has had "cold-like" symptoms for the last week. According to the pt, she has had a productive cough with sputum. In the [facility] the pt received a chest x-ray and EKG. Upon further evaluation, we discussed pt care with Dr. Garcia. The pt will be admitted to the [facility] for observation. The dx will be COPD exacerbation, right lower lobe pneumonia, and hyponatremia. Dr. Garcia accepts pt care. - Diagnoses Provider Diagnoses: Hyponatremia, Right lower lobe pneumonia, COPD exacerbation - Physician Notifications Discussed Care Of Patient With: Megan M Jose Time Discussed With Above Provider: 02:00 Instructed by Provider To: Admit As Observation Discharge - Discharge Plan Condition: Stable Disposition: ADMITTED TO [facility] Referrals: Guerrero Gtz, [facility] [facility] [Primary Care Provider] - The documentation as recorded by the Ry crawford Abhishek accurately reflects the service I personally performed and the decisions made by me, Carolina Weber MD.
[2017-08-04] MEDS ORDERED: Piperacillin/Tazobac ADVAN(*) 3.375 GM in NS 0.9% 100 ML* 100 ML IVPB ONE (03:41)
[2017-08-04] MEDS ORDERED: Nabumetone TAB* 500 MG PO PRN (03:54)
[2017-08-04] MEDS ORDERED: Zosyn per Pharmacy* NOTE FOLLOW UP SCH (04:00)
[2017-08-04] MEDS ORDERED: NS 0.9% 500 ML* 500 ML IV SCH ×2 (04:00→13:22)
[2017-08-04 04:08] LABS: INR 1.18 (0.77-1.02)
[2017-08-04] MEDS ORDERED: Vancomycin(*) 1,000 MG in NS 0.9% 250 ML* 250 ML IVPB ONE (04:30)
[2017-08-04] MEDS ORDERED: Vancomycin per Pharmacy* NOTE FOLLOW UP PRN (06:35)
--- NOTE | 2017-08-04 07:45 | RAD ---
INDICATION: Shortness of breath. COMPARISON: Comparison is made with prior chest x-ray study from July 24, 2017. TECHNIQUE: A portable view of the chest was obtained. FINDINGS: The heart is mildly enlarged and unchanged. Postsurgical changes are noted in the left hilum. The lungs are underinflated. There are small infiltrates at both lung bases which appear new. No pleural effusion is seen. IMPRESSION: BIBASILAR INFILTRATES.
[2017-08-04] MEDS: Piperacillin/Tazobactam 13.5 GM IV 24 hour continuous infusion IVPB SCH ×2 (08:48)
[2017-08-04] MEDS ORDERED: DULoxetine DR CAP* 60 MG CAP.DR PO SCH (09:00)
[2017-08-04] MEDS: Diltiazem CD CAP* 120 MG PO SCH (11:07)
[2017-08-04] MEDS: Clopidogrel TAB* 75 MG PO SCH (11:07)
[2017-08-04] MEDS: Metoprolol Succinate XL TAB* 50 MG PO SCH (11:08)
[2017-08-04] MEDS: CMCS:Pantoprazole TAB (NF) 40 MG TAB PO SCH ×2 (11:08→20:37)
[2017-08-04] MEDS: Apixaban* 5 MG TAB PO SCH ×2 (11:08→20:37)
[2017-08-04] MEDS: predniSONE TAB* 20 MG PO SCH (11:09)
[2017-08-04] MEDS: Levothyroxine TAB* 175 MCG TAB PO SCH (12:14)
--- NOTE | 2017-08-04 13:31 | PN ---
Subjective Date of Service: 08/04/17 Interval History: Still some thick green sputum. Sl less SOB today. No new c/o. Objective Active Medications: Albuterol (Ventolin 2.5 Mg/3 Ml Neb.Tracey*) 2.5 mg INH Q4H PRN PRN Reason: SOB/WHEEZING Apixaban (Eliquis*) 5 mg PO BID [facility] Last Admin: 08/04/17 11:08 Dose: 5 mg Atorvastatin Calcium (Lipitor*) 40 mg PO 1700 [facility] Clopidogrel Bisulfate (Plavix Tab*) 75 mg PO DAILY [facility] Last Admin: 08/04/17 11:07 Dose: 75 mg Diltiazem HCl (Cardizem Cd Cap*) 120 mg PO DAILY [facility] Last Admin: 08/04/17 11:07 Dose: 120 mg Duloxetine HCl (Cymbalta Cap*) 60 mg PO DAILY [facility] Last Admin: 08/04/17 11:08 Dose: 60 mg Gabapentin (Neurontin Cap(*)) 300 mg PO TID PRN PRN Reason: PAIN Guaifenesin (Robitussin*) 10 ml PO QID [facility] Piperacillin Sod/Tazobactam (Sod 13.5 gm/ Sodium Chloride) 500 mls @ 20.833 mls /hr IVPB Q24H [facility] Last Admin: 08/04/17 08:48 Dose: 20.833 mls/hr Sodium Chloride (Ns 0.9% 500 Ml*) 500 mls @ 40 mls/hr IV PER RATE [facility] Ipratropium Harned (Atrovent 0.5 Mg Neb.Tracey*) 0.5 mg INH QID PRN PRN Reason: SOB/WHEEZING Levothyroxine Sodium (Synthroid Tab*) 175 mcg PO DAILY@0600 [facility] Last Admin: 08/04/17 12:14 Dose: 175 mcg Metoprolol Succinate (Toprol Xl Tab*) 50 mg PO DAILY [facility] Last Admin: 08/04/17 11:08 Dose: 50 mg Mometasone Furoate (Asmanex 220 Mcg Mdi *) 2 puff INH QPM [facility] Nabumetone (Relafen Tab*) 750 mg PO TID PRN PRN Reason: PAIN - ARTHRITIS Pantoprazole Sodium (Protonix Tab (Nf)) 40 mg PO BID [facility] Last Admin: 08/04/17 11:08 Dose: 40 mg Pharmacy Consult (Zosyn Per Pharmacy*) 1 note FOLLOW UP .ZOSYN PER PHARMACY [facility] Prednisone (Deltasone Tab*) 40 mg PO DAILY [facility] Last Admin: 08/04/17 11:09 Dose: 40 mg Quetiapine Fumarate (Seroquel Tab*) 100 mg PO BEDTIME [facility] Tramadol HCl (Ultram*) 50 mg PO Q8H PRN PRN Reason: PAIN Vital Signs - 8 hr 08/04/17 08/04/17 08/04/17 08:00 08:05 11:16 Temperature 98.0 F 98.0 F Pulse Rate 111 114 Respiratory 20 20 20 Rate Blood Pressure 124/71 142/88 (mmHg) O2 Sat by Pulse 99 96 Oximetry Oxygen Devices in Use Now: Nasal Cannula Appearance: Alert, partly up in bed on her left side. In fair spirits. Looks tired but otherwise comfortable. No cough during my visit. Eyes: No Scleral Icterus Respiratory: Symmetrical Chest Expansion and Respiratory Effort, Clear to Percussion, - - Much prolonged exp phase, sl wheezing. Cardiovascular: NL Sounds; No Murmurs; No JVD, RRR, No Edema, - Extremities: No Edema, No Clubbing, Cyanosis, - Skin: No Rash or Ulcers, No Nodules or Sclerosis, - Neurological: Alert and Oriented x 3, NL Sensation Result Diagrams: 08/04/17 01:10 08/04/17 10:45 Microbiology and Other Data: Microbiology 08/04/17 11:15 Gram Stain - Final Sputum Assess/Plan/Problems-Billing Assessment: - Patient Problems (1) Pneumonia Current Visit: Yes Status: Acute Code(s): J18.9 - PNEUMONIA, UNSPECIFIED ORGANISM SNOMED Code(s): 902853529 Comment: Continue pip/reggie. Add guaifenesin. Continue prednisone for bronchoconstriction. (2) Anemia Current Visit: No Status: Acute Priority: High Code(s): D64.9 - ANEMIA, UNSPECIFIED SNOMED Code(s): 567153946 Comment: stable; at her baseline. (3) Atrial fibrillation with RVR Current Visit: No Status: Acute Code(s): I48.91 - UNSPECIFIED ATRIAL FIBRILLATION SNOMED Code(s): 433896572478214 Comment: Remains in NSR. Continue diltiazem CD and metoprolol tartrate. Eliquis given her elevated [id number] (4) Tobacco abuse Current Visit: No Status: Acute Code(s): Z72.0 - TOBACCO USE SNOMED Code(s ): 907763785 Comment: Pt advised to quit smoking and avoid second hand smoke. (5) CAD (coronary artery disease) Current Visit: No Status: Chronic Priority: High Code(s): I25.10 - ATHSCL HEART DISEASE OF [place] CORONARY ARTERY W/O ANG PCTRS SNOMED Code(s): 62738129 Comment: Known CAD with known lesion of LAD and total occlusion of Posterior decending artery. Not stentable. Continue beta luis f, Plavix, statin, and cardizem. (6) Hyponatremia Current Visit: No Status: Chronic Priority: High Code(s): E87.1 - HYPO- OSMOLALITY AND HYPONATREMIA SNOMED Code(s): 99003163 Comment: IMproved 08/04. Reduce duloxetine dose. Also reduce quetiapine dose.
--- NOTE | 2017-08-04 14:08 | HP ---
CC: Guerrero Gtz NP * HISTORY AND PHYSICAL: DATE OF ADMISSION: 08/04/17 PRIMARY CARE PROVIDER: Guerrero Gtz NP. CHIEF COMPLAINT: Shortness of breath. HISTORY OF PRESENT ILLNESS: Ms. Glover is a 66-year-old female well known to the hospitalist service for multiple previous hospitalizations who presented to the emergency room with complaints of shortness of breath. This will now be the patient's 6th hospitalization just this year. She has had multiple different complaints for each of the hospitalizations. The patient unfortunately received Ativan in the emergency room and now is unable to provide me any history. All of the history is obtained from nursing notes. The patient reportedly told nursing and EMS that she has had a cold for the last 1 week and had worsened shortness of breath the night prior to admission. She also complained of productive cough, but reports the patient's O2 saturation was 88% on room air when she arrived to the emergency room. EMS stated it was low 80s at the time of their arrival. PAST MEDICAL HISTORY: 1. Hyponatremia. 2. COPD. 3. History of lung cancer. 4. History of PFO. 5. Hypertension. 6. Hyperlipidemia. 7. Hypothyroidism. 8. Chronic pain. 9. History of PE. 10. History of opiate and benzodiazepine abuse. 11. Anxiety. 12. Coronary artery disease. 13. History of CVA with residual left arm weakness. 14. Recent GI bleed in the setting of NSAID overuse. PAST SURGICAL HISTORY: 1. Left upper lobectomy. 2. Tonsillectomy. 3. Hysterectomy. MEDICATIONS: Per the patient's most recent discharge: 1. Albuterol 1 neb inhaled q.4 hours p.r.n. shortness of breath. 2. Eliquis 5 mg p.o. twice daily. 3. Synthroid 175 mg p.o. daily. 4. Albuterol HFA 2 puffs inhaled q.4 hours p.r.n. shortness of breath. 5. Ipratropium 1 neb inhaled 4 times daily p.r.n. shortness of breath. 6. Flovent 220 mcg 1 puff inhaled twice daily. 7. Duloxetine DR 60 mg p.o. daily. 8. Lipitor 40 mg p.o. daily. 9. Plavix 75 mg p.o. daily. 10. Nabumetone 750 mg p.o. t.i.d. p.r.n. pain. 11. Gabapentin 300 mg p.o. t.i.d. 12. Diltiazem CD 120 mg p.o. daily. 13. Metoprolol XL 50 mg p.o. daily. 14. Protonix 40 mg p.o. twice daily. 15. Seroquel 100 mg p.o. q.h.s. 16. Tramadol 25 mg p.o. q.8 hours. ALLERGIES: ASPIRIN and LATEX. FAMILY HISTORY: Mom had a history of ulcerative colitis. Dad had a history of coronary artery disease. SOCIAL HISTORY: The patient is an active smoker of one half pack per day. She does not drink alcohol. Her surrogate decision maker is her daughter, Elyssa. REVIEW OF SYSTEMS: Unobtainable from the patient due to somnolence after receiving Ativan in the emergency room. PHYSICAL EXAMINATION GENERAL: The patient is a well-developed middle aged female seen sleeping in the stretcher who awakens very briefly to voice and light touch, in no acute distress. VITAL SIGNS: Blood pressure 104/65, pulse 112, respirations 16, temp 99.3, O2 sat 98% on 2 L. HEENT: Pupils are equal. Oropharynx is clear. Oral mucosa is moist. The patient is drooling while sleeping. There is no submandibular, cervical, or supraclavicular adenopathy. Thyroid is not enlarged. No thyroid nodules are noted. PULMONARY: Breath sounds are coarse throughout. There is a prolonged expiratory phase. CARDIAC: Normal S1 and S2. Heart rate is tachycardic, but regular. There is no lower extremity edema. ABDOMEN: Bowel sounds present. Abdomen is soft, nontender, nondistended. MUSCULOSKELETAL: There is no cyanosis or clubbing. NEURO: Unable to be tested due to the patient's somnolence. SKIN: Warm and dry. There are no rashes. PSYCH: Unable to be tested due to the patient's somnolence. LABORATORY DATA/DIAGNOSTIC STUDIES: WBC 17.0, hemoglobin 8.7, hematocrit 27, and platelets 393,000. Sodium 124, potassium 3.6, chloride 97, CO2 of 18, BUN 23, creatinine 1.07, glucose 115, lactic acid 0.5, calcium 9.1, bilirubin 0.4, AST 13, ALT 11, alk phos 79. Troponin 0.01. CRP 144.01. BNP 183. Albumin is 3.5. EKG reveals sinus tachycardia with possible ST depression in the lateral leads. Chest x-ray, question right lower lobe infiltrate. ASSESSMENT AND PLAN: Ms. Glover is a 66-year-old female with history of chronic obstructive pulmonary disease, atrial fibrillation, ongoing tobacco abuse, recent gastrointestinal bleed, recent cerebrovascular accident and multiple hospitalizations just this year, who presents to the emergency room with complaints of shortness of breath and is admitted for possible right lower lobe pneumonia. 1. Possible right lower lobe pneumonia. The patient has a new leukocytosis and markedly elevated CRP. Additionally, she is mildly tachycardic and her creatinine as above her baseline. At this point, she will be admitted for treatment of possible pneumonia. She meets sepsis criteria, but not severe sepsis criteria. She will be maintained on vancomycin and Zosyn for healthcare associated pneumonia given her numerous trips in and out of the hospital and local nursing homes over the last couple of months. Urine for Strep pneumoniae and Legionella antigens will be sent. We will get a sputum culture if the patient is able to produce one. Additionally, I will add on a procalcitonin level. The patient will also have prednisone 40 mg daily starting in the morning of 08/04/17. Decision will need to be made whether or not to continue this. She has no wheezing on exam today; however, there may be some benefit of providing steroids in the setting of pneumonia. 2. Chronic obstructive pulmonary disease and ongoing tobacco abuse. The patient will be maintained on her usual inhaler/nebulizer regimen. Currently, she is breathing very comfortably while sleeping. We will monitor for wheezing or other signs of exacerbation. Smoking cessation education will need to be provided once she is more alert. 3. Atrial fibrillation. The patient is currently in sinus rhythm. She will be maintained on her diltiazem and Eliquis. 4. Coronary artery disease. There are no acute issues at this time. She will continue Plavix, Lipitor and metoprolol. 5. Hypothyroidism. We will continue Synthroid at home dose. 6. Chronic pain. We will continue p.r.n. tramadol. 7. Depression. Continue Cymbalta and Seroquel. 8. DVT prophylaxis. According to the Adult Thrombosis Prophylaxis Risk Factor Assessment Guide, the patient has a total risk factor score of 8 making her the highest risk. She is on Eliquis for DVT prophylaxis and this will continue. 9. Code status is full. TIME SPENT: 40 minutes was spent admitting this patient. [id number]/CPS #: [id number] NICOLE
[2017-08-04] MEDS: Atorvastatin* 40 MG TAB PO SCH (17:27)
[2017-08-04] MEDS: guaiFENesin LIQ* 100 MG/5 ML UDC PO SCH ×2 (17:28→20:37)
[2017-08-04] MEDS: Mometasone 220 MCG MDI INH SCH (19:53)
[2017-08-04] MEDS: QUEtiapine TAB* 25 MG PO SCH (20:37)
[2017-08-04] MEDS ORDERED: QUEtiapine TAB* 100 MG PO SCH (21:00)
[2017-08-05 05:45] LABS: Hematocrit 24 % (35-47); Hemoglobin 7.9 g/dl (12.0-16.0); Mean Corpuscular HGB Conc 34 g/dl (31-36); Mean Corpuscular Hemoglobin 30 pg (27-31); Mean Corpuscular Volume 89 fL (80-97); Mean Platelet Volume 8 um3 (7.4-10.4); Platelet Count 356 10^3/ul (150-450); Red Blood Count 2.64 10^6/ul (4.0-5.4); Red Cell Distribution Width 17 % (10.5-15); White Blood Count 10.5 10^3/ul (3.5-10.8)
[2017-08-05] MEDS ORDERED: Vancomycin(*) 750 MG in NS 0.9% 250 ML* 250 ML IVPB SCH (06:00)
[2017-08-05] MEDS: Levothyroxine TAB* 175 MCG TAB PO SCH (07:07)
[2017-08-05] MEDS: Piperacillin/Tazobactam 13.5 GM IV 24 hour continuous infusion IVPB SCH ×2 (09:05)
[2017-08-05] MEDS: Clopidogrel TAB* 75 MG PO SCH (09:21)
[2017-08-05] MEDS: guaiFENesin LIQ* 100 MG/5 ML UDC PO SCH ×4 (09:21→20:56)
[2017-08-05] MEDS: Diltiazem CD CAP* 120 MG PO SCH (09:21)
[2017-08-05] MEDS: Metoprolol Succinate XL TAB* 50 MG PO SCH (09:21)
[2017-08-05] MEDS: predniSONE TAB* 20 MG PO SCH (09:21)
[2017-08-05] MEDS: DULoxetine DR CAP* 30 MG CAP.DR PO SCH (09:21)
[2017-08-05] MEDS: Apixaban* 5 MG TAB PO SCH ×2 (09:21→19:46)
[2017-08-05] MEDS: CMCS:Pantoprazole TAB (NF) 40 MG TAB PO SCH ×2 (09:22→19:46)
--- NOTE | 2017-08-05 11:10 | PN ---
Subjective Date of Service: 08/05/17 Interval History: Less sputum but little change in SOB or TELLES. She has done almost no walking here. No new c/o. Objective Active Medications: Albuterol (Ventolin 2.5 Mg/3 Ml Neb.Tracey*) 2.5 mg INH Q4H PRN PRN Reason: SOB/WHEEZING Apixaban (Eliquis*) 5 mg PO BID [facility] Last Admin: 08/05/17 09:21 Dose: 5 mg Atorvastatin Calcium (Lipitor*) 40 mg PO 1700 [facility] Last Admin: 08/04/17 17:27 Dose: 40 mg Clopidogrel Bisulfate (Plavix Tab*) 75 mg PO DAILY [facility] Last Admin: 08/05/17 09:21 Dose: 75 mg Diltiazem HCl (Cardizem Cd Cap*) 120 mg PO DAILY [facility] Last Admin: 08/05/17 09:21 Dose: 120 mg Duloxetine HCl (Cymbalta Cap*) 30 mg PO DAILY [facility] Last Admin: 08/05/17 09:21 Dose: 30 mg Gabapentin (Neurontin Cap(*)) 300 mg PO TID PRN PRN Reason: PAIN Guaifenesin (Robitussin*) 10 ml PO QID [facility] Last Admin: 08/05/17 09:21 Dose: 10 ml Piperacillin Sod/Tazobactam (Sod 13.5 gm/ Sodium Chloride) 500 mls @ 20.833 mls /hr IVPB Q24H [facility] Last Admin: 08/05/17 09:05 Dose: 20.833 mls/hr Sodium Chloride (Ns 0.9% 500 Ml*) 500 mls @ 40 mls/hr IV PER RATE [facility] Ipratropium [employer] (Atrovent 0.5 Mg Neb.Tracey*) 0.5 mg INH QID PRN PRN Reason: SOB/WHEEZING Levothyroxine Sodium (Synthroid Tab*) 175 mcg PO DAILY@0600 [facility] Last Admin: 08/05/17 07:07 Dose: 175 mcg Metoprolol Succinate (Toprol Xl Tab*) 50 mg PO DAILY [facility] Last Admin: 08/05/17 09:21 Dose: 50 mg Mometasone Furoate (Asmanex 220 Mcg Mdi *) 2 puff INH QPM [facility] Last Admin: 08/04/17 19:53 Dose: 2 puff Nabumetone (Relafen Tab*) 750 mg PO TID PRN PRN Reason: PAIN - ARTHRITIS Pantoprazole Sodium (Protonix Tab (Nf)) 40 mg PO BID [facility] Last Admin: 08/05/17 09:22 Dose: 40 mg Pharmacy Consult (Zosyn Per Pharmacy*) 1 note FOLLOW UP .ZOSYN PER PHARMACY [facility] Prednisone (Deltasone Tab*) 40 mg PO DAILY [facility] Last Admin: 08/05/17 09:21 Dose: 40 mg Quetiapine Fumarate (Seroquel Tab*) 75 mg PO BEDTIME [facility] Last Admin: 08/04/17 20:37 Dose: 75 mg Tramadol HCl (Ultram*) 50 mg PO Q8H PRN PRN Reason: PAIN Vital Signs - 8 hr 08/05/17 08/05/17 08/05/17 03:12 07:24 08:00 Temperature 97.8 F 98.3 F Pulse Rate 67 88 Respiratory 16 22 22 Rate Blood Pressure 95/61 142/64 (mmHg) O2 Sat by Pulse 98 97 Oximetry Oxygen Devices in Use Now: Nasal Cannula Appearance: Alert, head and legs up in bed. In fair spirits. Tachypneic but otherwise looks comfortable. No cough during my exam. Eyes: No Scleral Icterus Neck: NL Appearance and Movements; NL JVP, No Thyroid Enlargement, Masses Respiratory: Symmetrical Chest Expansion and Respiratory Effort, Clear to Percussion - markedly prolonged expiratory phase, poor air movement. No wheezing or rales. Cardiovascular: NL Sounds; No Murmurs; No JVD, RRR, No Edema, - Extremities: No Edema, No Clubbing, Cyanosis, - Skin: No Rash or Ulcers, No Nodules or Sclerosis, - Neurological: Alert and Oriented x 3, NL Sensation Result Diagrams: 08/05/17 05:01 08/05/17 05:01 Microbiology and Other Data: Microbiology 08/04/17 11:15 Gram Stain - Final Sputum Assess/Plan/Problems-Billing Assessment: - Patient Problems (1) Pneumonia Current Visit: Yes Status: Acute Code(s): J18.9 - PNEUMONIA, UNSPECIFIED ORGANISM SNOMED Code(s): 548581426 Comment: Continue pip/reggie, guaifenesin. Taper prednisone. She is not on prednisone at home. (2) Anemia Current Visit: No Status: Acute Priority: High Code(s): D64.9 - ANEMIA, UNSPECIFIED SNOMED Code(s): 146353552 Comment: stable; at her baseline. (3) Atrial fibrillation with RVR Current Visit: No Status: Acute Code(s): I48.91 - UNSPECIFIED ATRIAL FIBRILLATION SNOMED Code(s): 588514915232440 Comment: Remains in NSR. Continue diltiazem CD and metoprolol tartrate. Eliquis given her elevated [id number] (4) Tobacco abuse Current Visit: No Status: Acute Code(s): Z72.0 - TOBACCO USE SNOMED Code(s ): 234500976 Comment: Pt advised to quit smoking and avoid second hand smoke. Possibly the reason she signed out of the care home was to go home and smoke. (5) CAD (coronary artery disease) Current Visit: No Status: Chronic Priority: High Code(s): I25.10 - ATHSCL HEART DISEASE OF [place] CORONARY ARTERY W/O ANG PCTRS SNOMED Code(s): 42838632 Comment: Known CAD with known lesion of LAD and total occlusion of Posterior decending artery. Not stentable. Continue beta luis f, Plavix, statin, and cardizem. (6) Hyponatremia Current Visit: No Status: Chronic Priority: High Code(s): E87.1 - HYPO- OSMOLALITY AND HYPONATREMIA SNOMED Code(s): 36946802 Comment: Improved 08/05. Continue reduced duloxetine dose and reduced quetiapine dose.
[2017-08-05] MEDS: traMADol TAB* 50 MG PO PRN (15:16)
[2017-08-05] MEDS: Atorvastatin* 40 MG TAB PO SCH (17:34)
[2017-08-05] MEDS: Gabapentin CAP(*) 300 MG PO PRN (17:34)
[2017-08-05] MEDS: Mometasone 220 MCG MDI INH SCH (17:58)
[2017-08-05] MEDS: QUEtiapine TAB* 25 MG PO SCH (19:46)
[2017-08-06] MEDS: Levothyroxine TAB* 175 MCG TAB PO SCH (05:21)
[2017-08-06] MEDS: Clopidogrel TAB* 75 MG PO SCH (08:26)
[2017-08-06] MEDS: predniSONE TAB* 10 MG PO SCH (08:26)
[2017-08-06] MEDS: Metoprolol Succinate XL TAB* 50 MG PO SCH (08:26)
[2017-08-06] MEDS: DULoxetine DR CAP* 30 MG CAP.DR PO SCH (08:27)
[2017-08-06] MEDS: guaiFENesin LIQ* 100 MG/5 ML UDC PO SCH ×4 (08:27→23:24)
[2017-08-06] MEDS: CMCS:Pantoprazole TAB (NF) 40 MG TAB PO SCH (08:27)
[2017-08-06] MEDS: traMADol TAB* 50 MG PO PRN ×2 (08:27→17:20)
[2017-08-06] MEDS: Diltiazem CD CAP* 120 MG PO SCH (08:27)
[2017-08-06] MEDS: Apixaban* 5 MG TAB PO SCH ×2 (08:27→23:25)
[2017-08-06] MEDS: PIPERACILLIN IVPB SCH (11:10)
[2017-08-06] MEDS: TAZOBACTAM IVPB SCH (11:10)
[2017-08-06] MEDS: NS 0.9% IVPB SCH (11:10)
--- NOTE | 2017-08-06 14:44 | PN ---
Subjective Date of Service: 08/06/17 Interval History: Patient continues to feel very poorly. Intermittent but improving productive cough. Patient has intermittent chest tightness with coughing. Patient states that she often has coughing with swallowing. Patient states that she has GERD symptoms almost every morning which is decreased but not resolved with Protonix. Patient hypoxic when awoken. Patient has never been tested for sleep apnea per her report but states that she wakes frequently in the night and has been told that she snores. Patient has no palpitations, dizziness, changes in vision, headache, diarrhea, constipation, F/C, N/V, abdominal pain, Rash or other pain. Patient states she was not able to follow up with Oncology or the [facility] because she has been in the hospital so frequently. Family History: Unchanged from Admission Social History: Unchanged from Admission Past Medical History: Unchanged from Admission Objective Active Medications: Albuterol (Ventolin 2.5 Mg/3 Ml Neb.Tracey*) 2.5 mg INH Q4H PRN PRN Reason: SOB/WHEEZING Apixaban (Eliquis*) 5 mg PO BID [facility] Last Admin: 08/06/17 08:27 Dose: 5 mg Atorvastatin Calcium (Lipitor*) 40 mg PO 1700 [facility] Last Admin: 08/05/17 17:34 Dose: 40 mg Clopidogrel Bisulfate (Plavix Tab*) 75 mg PO DAILY [facility] Last Admin: 08/06/17 08:26 Dose: 75 mg Diltiazem HCl (Cardizem Cd Cap*) 120 mg PO DAILY [facility] Last Admin: 08/06/17 08:27 Dose: 120 mg Duloxetine HCl (Cymbalta Cap*) 30 mg PO DAILY [facility] Last Admin: 08/06/17 08:27 Dose: 30 mg Gabapentin (Neurontin Cap(*)) 300 mg PO TID PRN PRN Reason: PAIN Last Admin: 08/05/17 17:34 Dose: 300 mg Guaifenesin (Robitussin*) 10 ml PO QID [facility] Last Admin: 08/06/17 08:27 Dose: 10 ml Sodium Chloride (Ns 0.9% 500 Ml*) 500 mls @ 40 mls/hr IV PER RATE [facility] Piperacillin Sod/Tazobactam (Sod 13.5 gm/ Sodium Chloride) 500 mls @ 20.833 mls /hr IVPB Q24H [facility] Last Admin: 08/06/17 11:10 Dose: 20.833 mls/hr Ipratropium [place] (Atrovent 0.5 Mg Neb.Tracey*) 0.5 mg INH QID PRN PRN Reason: SOB/WHEEZING Levothyroxine Sodium (Synthroid Tab*) 175 mcg PO DAILY@0600 [facility] Last Admin: 08/06/17 05:21 Dose: 175 mcg Metoprolol Succinate (Toprol Xl Tab*) 50 mg PO DAILY [facility] Last Admin: 08/06/17 08:26 Dose: 50 mg Mometasone Furoate (Asmanex 220 Mcg Mdi *) 2 puff INH QPM [facility] Last Admin: 08/05/17 17:58 Dose: 2 puff Pantoprazole Sodium (Protonix Tab (Nf)) 80 mg PO BID [facility] Pharmacy Consult (Zosyn Per Pharmacy*) 1 note FOLLOW UP .ZOSYN PER PHARMACY [facility] Prednisone (Deltasone Tab*) 30 mg PO DAILY [facility] Last Admin: 08/06/17 08:26 Dose: 30 mg Quetiapine Fumarate (Seroquel Tab*) 75 mg PO BEDTIME [facility] Last Admin: 08/05/17 19:46 Dose: 75 mg Tramadol HCl (Ultram*) 50 mg PO Q8H PRN PRN Reason: PAIN Last Admin: 08/06/17 08:27 Dose: 50 mg Vital Signs - 8 hr 08/06/17 08/06/17 08/06/17 07:37 08:00 08:27 Temperature 98.3 F Pulse Rate 92 Respiratory 28 16 20 Rate Blood Pressure 134/81 (mmHg) O2 Sat by Pulse 90 Oximetry 08/06/17 11:11 Temperature Pulse Rate Respiratory 18 Rate Blood Pressure (mmHg) O2 Sat by Pulse Oximetry Oxygen Devices in Use Now: Nasal Cannula - 1L Appearance: Patient is a 66yo female with alopecia who is sitting in the bed in NAD with no increased WOB. Eyes: No Scleral Icterus, PERRLA Ears/Nose/Mouth/Throat: NL Teeth, Lips, Gums, Clear Oropharnyx, Mucous Membranes Moist Neck: NL Appearance and Movements; NL JVP, Trachea Midline Respiratory: Symmetrical Chest Expansion and Respiratory Effort, - - Crackles and rhonchi in B/L lung bases Cardiovascular: RRR, No Edema, - - Grade 2/6 holosystolic murmur heard best at LLSB. Decreased from previous exam. Abdominal: NL Sounds; No Tenderness; No Distention, No Hepatosplenomegaly Lymphatic: No Cervical Adenopathy Extremities: No Edema, No Clubbing, Cyanosis Skin: No Rash or Ulcers, No Nodules or Sclerosis Neurological: Alert and Oriented x 3, NL Sensation, - - Decreased strength in Left upper extremity. Slight right sided facial droop. Reflex 4+ in left biceps. 2+ throughout otherwise. Result Diagrams: 08/05/17 05:01 08/05/17 05:01 Microbiology and Other Data: Microbiology 08/04/17 11:15 Gram Stain - Final Sputum Assess/Plan/Problems-Billing Assessment: Patient is a 66yo female with a PMH of Stroke, PNA, CAD, GERD, Afib, Lung CA s/ p lobectomy who presents with lobar pneumonia and is improving slowly on IV antibiotics. - Patient Problems (1) Pneumonia Current Visit: Yes Status: Acute Code(s): J18.9 - PNEUMONIA, UNSPECIFIED ORGANISM SNOMED Code(s): 161832489 Comment: Continue Zosyn. Appropriate choice for empiric coverage of hospital acquired and aspiration pneumonias. Continue guaifenesin, start ISB and Flutter Valve. Taper prednisone slowly for airway inflammation and to decrease damage from Pneumonia. (2) Anemia Current Visit: No Status: Acute Priority: High Code(s): D64.9 - ANEMIA, UNSPECIFIED SNOMED Code(s): 180206275 Comment: Anemic. Patient is near her baseline. No evidence of bleeding currently. Increase protonix. No epigastric pain. No melena or bloody stools. Patient has borderline low iron and ferritin with low %saturation. Consider iron supplementation after acute phase of illness. (3) CAD (coronary artery disease) Current Visit: No Status: Chronic Priority: High Code(s): I25.10 - ATHSCL HEART DISEASE OF [place] CORONARY ARTERY W/O ANG PCTRS SNOMED Code(s): 03429101 Comment: Known CAD with known lesion of LAD and total occlusion of Posterior decending artery. Not stentable. Continue beta luis f, Plavix, statin, and cardizem. Patient should still be desensitized to aspirin when able for maximal secondary prevention of [place]. (4) Atrial fibrillation with RVR Current Visit: No Status: Acute Code(s): I48.91 - UNSPECIFIED ATRIAL FIBRILLATION SNOMED Code(s): 059631433710289 Comment: Remains in NSR. Continue diltiazem CD and metoprolol tartrate. Eliquis given her elevated [id number] (5) H/O: CVA (cerebrovascular accident) Current Visit: No Status: Acute Code(s): Z86.73 - PRSNL HX OF TIA (TIA), AND CEREB INFRC W/O RESID DEFICITS SNOMED Code(s): 982189222 Comment: Significant residual left sided weakness. Intermittent Afib. Continue eliquis, Plavix, Statin. (6) Safety awareness deficit Current Visit: No Status: Acute Priority: High Code(s): SBQ2189 - SNOMED Code(s): 477460338 Comment: Patient states she does well at home but is admitted repeatedly due to inability to cope at home. Patient deemed unsafe to go home by OT. Would benefit from MARY. Will consult psychiatry for competence if patient will not consent to rehab. (7) Tobacco abuse Current Visit: No Status: Acute Code(s): Z72.0 - TOBACCO USE SNOMED Code(s ): 302277290 Comment: Pt advised to quit smoking and avoid second hand smoke. Possibly the reason she signed out of the care home was to go home and smoke. (8) Anxiety Current Visit: No Status: Chronic Priority: High Code(s): F41.9 - ANXIETY DISORDER, UNSPECIFIED SNOMED Code(s): 21515337 Comment: Continue decreased seroquel and Duloxetine for hyponatremia. Anxiety likely contributes significantly to numerous readmissions. History of benzodiazepine abuse. Would benefit from outpatient conseling. (9) COPD (chronic obstructive pulmonary disease) Current Visit: No Status: Chronic Code(s): J44.9 - CHRONIC OBSTRUCTIVE PULMONARY DISEASE, UNSPECIFIED SNOMED Code(s): 81673787 Comment: Mild exacerbation due to pneumonia. Continue inhalers and taper steroids. (10) GERD (gastroesophageal reflux disease) Current Visit: No Status: Chronic Code(s): K21.9 - GASTRO-ESOPHAGEAL REFLUX DISEASE WITHOUT ESOPHAGITIS SNOMED Code(s): 378774354 Comment: Increased Protonix. Appreciate speech therapy input. Patient describes waking up with gastric contents in mouth several times a week. Likely aspirating gastric contents and possibly contributing to pneumonia. Counseled on lifestyle modifications to decrease GERD. (11) History of lung cancer Current Visit: No Status: Chronic Priority: High Code(s): Z85.118 - PERSONAL HISTORY OF MALIGNANT NEOPLASM OF [place] AND LUNG SNOMED Code(s): 018156294 Comment: Need f/u ct in 2 months, previous ct with small nodule. Follows with Dr. Cloud. Unable to go to appointments due to being hospitalized multiple times. (12) Hypertension Current Visit: No Status: Chronic Code(s): I10 - ESSENTIAL (PRIMARY) HYPERTENSION SNOMED Code(s): 88958606 Comment: Well controlled, continue home medications. (13) Hyponatremia Current Visit: No Status: Chronic Priority: High Code(s): E87.1 - HYPO- OSMOLALITY AND HYPONATREMIA SNOMED Code(s): 35265751 Comment: Improved 08/05. Continue reduced duloxetine dose and reduced quetiapine dose. Was not symptomatic. (14) Hypothyroidism Current Visit: No Status: Chronic Code(s): E03.9 - HYPOTHYROIDISM, UNSPECIFIED SNOMED Code(s): 42074694 Comment: Continue synthroid 150mcg daily (15) DVT prophylaxis Current Visit: No Status: Acute Code(s): HPT4953 - SNOMED Code(s): 436367865 Comment: Lam (16) Full code status Current Visit: No Status: Acute Code(s): Z78.9 - OTHER SPECIFIED HEALTH STATUS SNOMED Code(s): 061098434 Comment: Status and Disposition: Admitted inpatient. Patient would benefit from MARY.
[2017-08-06] MEDS: Atorvastatin* 40 MG TAB PO SCH (17:20)
[2017-08-06] MEDS: Mometasone 220 MCG MDI INH SCH (19:39)
[2017-08-06] MEDS ORDERED: Pantoprazole TAB (NF) 40 MG TAB PO SCH (21:00)
[2017-08-06] MEDS: QUEtiapine TAB* 25 MG PO SCH (23:25)
[2017-08-07 05:27] LABS: Hematocrit 24 % (35-47); Hemoglobin 8.1 g/dl (12.0-16.0); Mean Corpuscular HGB Conc 34 g/dl (31-36); Mean Corpuscular Hemoglobin 30 pg (27-31); Mean Corpuscular Volume 90 fL (80-97); Mean Platelet Volume 7 um3 (7.4-10.4); Platelet Count 358 10^3/ul (150-450); Red Blood Count 2.66 10^6/ul (4.0-5.4); Red Cell Distribution Width 17 % (10.5-15); White Blood Count 10.5 10^3/ul (3.5-10.8)
[2017-08-07] MEDS ORDERED: Vancomycin Trough Check NOTE FOLLOW UP ONE (05:30)
[2017-08-07 05:46] LABS: EGFR Non-African American 88.3 (>60)
[2017-08-07] MEDS: Levothyroxine TAB* 175 MCG TAB PO SCH (06:31)
[2017-08-07] MEDS ORDERED: Magnesium Sulfate 2 GM IV* 2 GM/50 ML BAG IVPB ONE (07:01)
[2017-08-07] MEDS: predniSONE TAB* 10 MG PO SCH (08:11)
[2017-08-07] MEDS: Metoprolol Succinate XL TAB* 50 MG PO SCH (08:11)
[2017-08-07] MEDS: traMADol TAB* 50 MG PO PRN ×2 (08:11→15:56)
[2017-08-07] MEDS: Clopidogrel TAB* 75 MG PO SCH (08:11)
[2017-08-07] MEDS: Gabapentin CAP(*) 300 MG PO PRN (08:11)
[2017-08-07] MEDS: CMCS Pantoprazole TAB (NF) 40 MG TAB PO SCH ×2 (08:12→20:57)
[2017-08-07] MEDS: Apixaban* 5 MG TAB PO SCH ×2 (08:12→20:57)
[2017-08-07] MEDS: DULoxetine DR CAP* 30 MG CAP.DR PO SCH (08:12)
[2017-08-07] MEDS: Potassium Chlor TAB* 20 MEQ TAB.ER PO SCH ×2 (08:12→20:57)
[2017-08-07] MEDS: Diltiazem CD CAP* 120 MG PO SCH (08:12)
[2017-08-07] MEDS: guaiFENesin LIQ* 100 MG/5 ML UDC PO SCH ×4 (08:15→20:54)
[2017-08-07 09:23] LABS: ABS Basophils 0 10^3/ul (0-0.2); ABS Eosinophils 0.1 10^3/ul (0-0.6); ABS Lymphocytes 1.9 10^3/ul (1.0-4.8); ABS Monocytes 1.3 10^3/ul (0-0.8); ABS Neutrophils 7.2 10^3/ul (1.5-7.7); ABS Nucleated RBC 0 10^3/ul; Eosinophil % 0.6 % (0-6); Lymphocyte % 17.7 % (25-47); Nucleated Red Blood Cells % 0.1
[2017-08-07] MEDS: Albuterol 2.5 MG/3 ML NEB.SOL* (0.083%) INH PRN (09:47)
[2017-08-07] MEDS: TAZOBACTAM IVPB SCH (10:31)
[2017-08-07] MEDS: NS 0.9% IVPB SCH (10:31)
[2017-08-07] MEDS: PIPERACILLIN IVPB SCH (10:31)
--- NOTE | 2017-08-07 13:52 | PN ---
Subjective Date of Service: 08/07/17 Interval History: Patient continues to feel poorly with SOB, decreased exercise tolerance and general malaise. Patient has improved but persistent cough with sputum production. Patient has no CP, Palpitations, Diarrhea, abdominal pain, dysuria, F/C, N/V, Dizziness, headache sore throat, or other pain. Patient states that she was previously diagnosed with hiatal hernia with "Dr. Acevedo" 4 years ago. Family History: Unchanged from Admission Social History: Unchanged from Admission Past Medical History: Unchanged from Admission Objective Active Medications: Albuterol (Ventolin 2.5 Mg/3 Ml Neb.Tracey*) 2.5 mg INH Q4H PRN PRN Reason: SOB/WHEEZING Last Admin: 08/07/17 09:47 Dose: 2.5 mg Apixaban (Eliquis*) 5 mg PO BID [facility] Last Admin: 08/07/17 08:12 Dose: 5 mg Atorvastatin Calcium (Lipitor*) 40 mg PO 1700 [facility] Last Admin: 08/06/17 17:20 Dose: 40 mg Clopidogrel Bisulfate (Plavix Tab*) 75 mg PO DAILY [facility] Last Admin: 08/07/17 08:11 Dose: 75 mg Diltiazem HCl (Cardizem Cd Cap*) 120 mg PO DAILY [facility] Last Admin: 08/07/17 08:12 Dose: 120 mg Duloxetine HCl (Cymbalta Cap*) 30 mg PO DAILY [facility] Last Admin: 08/07/17 08:12 Dose: 30 mg Gabapentin (Neurontin Cap(*)) 300 mg PO TID PRN PRN Reason: PAIN Last Admin: 08/07/17 08:11 Dose: 300 mg Guaifenesin (Robitussin*) 10 ml PO QID [facility] Last Admin: 08/07/17 08:15 Dose: 10 ml Piperacillin Sod/Tazobactam (Sod 13.5 gm/ Sodium Chloride) 500 mls @ 20.833 mls /hr IVPB Q24H [facility] Last Admin: 08/07/17 10:31 Dose: 20.833 mls/hr Ipratropium [place] (Atrovent 0.5 Mg Neb.Tracey*) 0.5 mg INH QID PRN PRN Reason: SOB/WHEEZING Levothyroxine Sodium (Synthroid Tab*) 175 mcg PO DAILY@0600 [facility] Last Admin: 08/07/17 06:31 Dose: 175 mcg Metoprolol Succinate (Toprol Xl Tab*) 50 mg PO DAILY [facility] Last Admin: 08/07/17 08:11 Dose: 50 mg Mometasone Furoate (Asmanex 220 Mcg Mdi *) 2 puff INH QPM [facility] Last Admin: 08/06/17 19:39 Dose: 2 puff Pantoprazole Sodium (Protonix Tab (Nf)) 40 mg PO BID [facility] Last Admin: 08/07/17 08:12 Dose: 40 mg Pharmacy Consult (Zosyn Per Pharmacy*) 1 note FOLLOW UP .ZOSYN PER PHARMACY [facility] Potassium Chloride (Klor Con Er Tab*) 20 meq PO BID [facility] Last Admin: 08/07/17 08:12 Dose: 20 meq Prednisone (Deltasone Tab*) 30 mg PO DAILY [facility] Last Admin: 08/07/17 08:11 Dose: 30 mg Quetiapine Fumarate (Seroquel Tab*) 75 mg PO BEDTIME [facility] Last Admin: 08/06/17 23:25 Dose: 75 mg Tramadol HCl (Ultram*) 50 mg PO Q8H PRN PRN Reason: PAIN Last Admin: 08/07/17 08:11 Dose: 50 mg Vital Signs - 8 hr 08/07/17 08/07/17 08/07/17 07:56 08:11 09:51 Temperature 97.9 F Pulse Rate 86 73 Respiratory 16 16 16 Rate Blood Pressure 141/76 (mmHg) O2 Sat by Pulse 100 92 Oximetry 08/07/17 10:32 Temperature Pulse Rate Respiratory 16 Rate Blood Pressure (mmHg) O2 Sat by Pulse Oximetry Oxygen Devices in Use Now: None Appearance: Patient is a 66yo female with alopecia who appears older than stated age and is sitting in the bed in [facility]. Eyes: No Scleral Icterus, PERRLA Ears/Nose/Mouth/Throat: NL Teeth, Lips, Gums, Mucous Membranes Moist, - - Thrush. Neck: NL Appearance and Movements; NL JVP, Trachea Midline Respiratory: Symmetrical Chest Expansion and Respiratory Effort, - - Course rhonchi and expiratory wheezing throughout. Cardiovascular: NL Sounds; No Murmurs; No JVD, No Edema, - - Grade 2/6 holosystolic murmur heard best at LLSB slightly improved from previous exam. Abdominal: NL Sounds; No Tenderness; No Distention, No Hepatosplenomegaly Lymphatic: No Cervical Adenopathy Extremities: No Edema, No Clubbing, Cyanosis Skin: No Rash or Ulcers, No Nodules or Sclerosis Neurological: Alert and Oriented x 3, - - Slight facial droop. 4-/5 strength on left side. Unchanged exam. Result Diagrams: 08/07/17 05:06 08/07/17 05:06 Microbiology and Other Data: Microbiology 08/04/17 11:15 Gram Stain - Final Sputum Assess/Plan/Problems-Billing Assessment: Patient is a 66yo female with a PMH of Stroke, PNA, CAD, GERD, Afib, Lung CA s/ p lobectomy who presents with lobar pneumonia and is improving slowly on IV antibiotics. - Patient Problems (1) Pneumonia Current Visit: Yes Status: Acute Code(s): J18.9 - PNEUMONIA, UNSPECIFIED ORGANISM SNOMED Code(s): 177429223 Comment: Continue Zosyn. Appropriate choice for empiric coverage of hospital acquired and aspiration pneumonias. Continue guaifenesin, start ISB and Flutter Valve. Taper prednisone slowly for airway inflammation and to decrease damage from highly inflammatory Pneumonia. Weaned off oxygen at rest at this time. (2) Anemia Current Visit: No Status: Acute Priority: High Code(s): D64.9 - ANEMIA, UNSPECIFIED SNOMED Code(s): 895788631 Comment: Anemic. Patient is near her baseline. No evidence of bleeding currently. Increase protonix. No epigastric pain. No melena or bloody stools. Patient has borderline low iron and ferritin with low %saturation. Consider iron supplementation after acute phase of illness. (3) CAD (coronary artery disease) Current Visit: No Status: Chronic Priority: High Code(s): I25.10 - ATHSCL HEART DISEASE OF [place] CORONARY ARTERY W/O ANG PCTRS SNOMED Code(s): 01066743 Comment: Known CAD with known lesion of LAD and total occlusion of Posterior decending artery. Not stentable. Continue beta luis f, Plavix, statin, and cardizem. Patient should still be desensitized to aspirin when able for maximal secondary prevention of [place]. (4) Atrial fibrillation with RVR Current Visit: No Status: Acute Code(s): I48.91 - UNSPECIFIED ATRIAL FIBRILLATION SNOMED Code(s): 164964776902149 Comment: Remains in NSR. Continue diltiazem CD and metoprolol tartrate. Eliquis given her elevated [id number] (5) H/O: CVA (cerebrovascular accident) Current Visit: No Status: Acute Code(s): Z86.73 - PRSNL HX OF TIA (TIA), AND CEREB INFRC W/O RESID DEFICITS SNOMED Code(s): 326323854 Comment: Significant residual left sided weakness. Intermittent Afib. Continue eliquis, Plavix, Statin. (6) Safety awareness deficit Current Visit: No Status: Acute Priority: High Code(s): GUC1628 - SNOMED Code(s): 456756718 Comment: Patient states she does well at home but is admitted repeatedly due to inability to cope at home. Patient deemed unsafe to go home by OT. Would benefit from [facility]. Will consult psychiatry for competence if patient will not consent to rehab. (7) Tobacco abuse Current Visit: No Status: Acute Code(s): Z72.0 - TOBACCO USE SNOMED Code(s ): 049135710 Comment: Pt advised to quit smoking and avoid second hand smoke. Possibly the reason she signed out of the skilled nursing was to go home and smoke. (8) Anxiety Current Visit: No Status: Chronic Priority: High Code(s): F41.9 - ANXIETY DISORDER, UNSPECIFIED SNOMED Code(s): 19652185 Comment: Continue decreased seroquel and Duloxetine for hyponatremia. Anxiety likely contributes significantly to numerous readmissions. History of benzodiazepine abuse. Would benefit from outpatient conseling. (9) COPD (chronic obstructive pulmonary disease) Current Visit: No Status: Chronic Code(s): J44.9 - CHRONIC OBSTRUCTIVE PULMONARY DISEASE, UNSPECIFIED SNOMED Code(s): 66170835 Comment: Mild exacerbation due to pneumonia. Continue inhalers and taper steroids. (10) GERD (gastroesophageal reflux disease) Current Visit: No Status: Chronic Code(s): K21.9 - GASTRO-ESOPHAGEAL REFLUX DISEASE WITHOUT ESOPHAGITIS SNOMED Code(s): 718239274 Comment: Protonix 40 BID. Recent diagnosis of gastritis. Appreciate speech therapy input. Patient describes waking up with gastric contents in mouth several times a week. Likely aspirating gastric contents and possibly contributing to pneumonia. Counseled on lifestyle modifications to decrease GERD. Patient states she was diagnosed with hiatal hernia [address] Acevedo. Patient should follow up for consideration of surgical fixation outpatient to possibly decreased pneumonia frequency. (11) History of lung cancer Current Visit: No Status: Chronic Priority: High Code(s): Z85.118 - PERSONAL HISTORY OF MALIGNANT NEOPLASM OF BRONCHUS AND LUNG SNOMED Code(s): 244139242 Comment: Need f/u ct in 2 months, previous ct with small nodule. Follows with Dr. Cloud. Unable to go to appointments due to being hospitalized multiple times. (12) Hypertension Current Visit: No Status: Chronic Code(s): I10 - ESSENTIAL (PRIMARY) HYPERTENSION SNOMED Code(s): 75320838 Comment: Well controlled, continue home medications. (13) Hyponatremia Current Visit: No Status: Chronic Priority: High Code(s): E87.1 - HYPO- OSMOLALITY AND HYPONATREMIA SNOMED Code(s): 41433181 Comment: Improved 08/05. Continue reduced duloxetine dose and reduced quetiapine dose. Was not symptomatic. (14) Hypothyroidism Current Visit: No Status: Chronic Code(s): E03.9 - HYPOTHYROIDISM, UNSPECIFIED SNOMED Code(s): 71806721 Comment: Continue synthroid 150mcg daily (15) DVT prophylaxis Current Visit: No Status: Acute Code(s): HSU4965 - SNOMED Code(s): 059868156 Comment: Lam (16) Full code status Current Visit: No Status: Acute Code(s): Z78.9 - OTHER SPECIFIED HEALTH STATUS SNOMED Code(s): 106485015 Comment: Status and Disposition: Admitted inpatient. Patient would benefit from [facility].
[2017-08-07] MEDS: Acetaminophen TAB* 325 MG PO PRN (18:22)
[2017-08-07] MEDS: Atorvastatin* 40 MG TAB PO SCH (18:22)
[2017-08-07] MEDS: Nystatin SUSPENSION* 100000 UNITS/ML 5 ML UDC PO SCH ×2 (18:23→20:55)
[2017-08-07] MEDS: Mometasone 220 MCG MDI INH SCH (20:33)
[2017-08-07] MEDS: QUEtiapine TAB* 25 MG PO SCH (20:57)
[2017-08-08 05:14] LABS: ABS Basophils 0 10^3/ul (0-0.2); ABS Eosinophils 0.1 10^3/ul (0-0.6); ABS Monocytes 1.4 10^3/ul (0-0.8); ABS Neutrophils 8.3 10^3/ul (1.5-7.7); ABS Nucleated RBC 0 10^3/ul; Eosinophil % 0.7 % (0-6); Hematocrit 26 % (35-47); Hemoglobin 8.6 g/dl (12.0-16.0); Lymphocyte % 16.9 % (25-47); Mean Corpuscular HGB Conc 33 g/dl (31-36); Mean Corpuscular Hemoglobin 29 pg (27-31); Mean Corpuscular Volume 90 fL (80-97); Mean Platelet Volume 8 um3 (7.4-10.4); Nucleated Red Blood Cells % 0.1; Platelet Count 352 10^3/ul (150-450); Red Blood Count 2.95 10^6/ul (4.0-5.4); Red Cell Distribution Width 17 % (10.5-15); White Blood Count 11.8 10^3/ul (3.5-10.8)
[2017-08-08 05:35] LABS: EGFR Non-African American 75.2 (>60)
[2017-08-08] MEDS: Levothyroxine TAB* 175 MCG TAB PO SCH (05:41)
[2017-08-08] MEDS ORDERED: Magnesium Sulfate 2 GM IV* 2 GM/50 ML BAG IVPB ONE (06:57)
[2017-08-08] MEDS: Ipratropium 0.5MG/2.5ML NEB* 0.5 MG/2.5 ML NEB.SOLN INH PRN ×2 (07:54→12:47)
[2017-08-08] MEDS: Albuterol 2.5 MG/3 ML NEB.SOL* (0.083%) INH PRN ×2 (07:54→12:47)
[2017-08-08] MEDS: Nystatin SUSPENSION* 100000 UNITS/ML 5 ML UDC PO SCH ×4 (08:02→22:03)
[2017-08-08] MEDS: Acetaminophen TAB* 325 MG PO PRN ×2 (08:02→16:59)
[2017-08-08] MEDS: DULoxetine DR CAP* 30 MG CAP.DR PO SCH (08:02)
[2017-08-08] MEDS: CMCS Pantoprazole TAB (NF) 40 MG TAB PO SCH ×2 (08:02→22:04)
[2017-08-08] MEDS: guaiFENesin LIQ* 100 MG/5 ML UDC PO SCH ×4 (08:02→22:08)
[2017-08-08] MEDS: traMADol TAB* 50 MG PO PRN ×2 (08:02→16:59)
[2017-08-08] MEDS: Metoprolol Succinate XL TAB* 50 MG PO SCH (08:02)
[2017-08-08] MEDS: Diltiazem CD CAP* 120 MG PO SCH (08:03)
[2017-08-08] MEDS: Potassium Chlor TAB* 20 MEQ TAB.ER PO SCH ×2 (08:03→22:03)
[2017-08-08] MEDS: predniSONE TAB* 20 MG PO SCH (08:03)
[2017-08-08] MEDS: Gabapentin CAP(*) 300 MG PO PRN ×2 (08:03→17:00)
[2017-08-08] MEDS: Clopidogrel TAB* 75 MG PO SCH (08:03)
[2017-08-08] MEDS: Apixaban* 5 MG TAB PO SCH ×2 (08:04→22:04)
[2017-08-08] MEDS: PIPERACILLIN IVPB SCH (10:11)
[2017-08-08] MEDS: Amoxicillin/Clavulanate TAB* 875 MG PO SCH ×2 (10:11→22:02)
[2017-08-08] MEDS: TAZOBACTAM IVPB SCH (10:11)
[2017-08-08] MEDS: NS 0.9% IVPB SCH (10:11)
--- NOTE | 2017-08-08 12:42 | PN ---
Subjective Date of Service: 08/08/17 Interval History: Patient continues to feel poorly, possibly worse from previous day. Patient states that she feels very weak but attributes this to inactivity. Patient complains of less frequent, intermittently productive cough. Patient complains of SOB with exertion. Patient denies F/C, N/V, CP, Abdominal pain, diarrhea, constipation, dysuria, headache, or other pain. Family History: Unchanged from Admission Social History: Unchanged from Admission Past Medical History: Unchanged from Admission Objective Active Medications: Acetaminophen (Tylenol Tab*) 650 mg PO Q6H PRN PRN Reason: FEVER/PAIN Last Admin: 08/08/17 08:02 Dose: 650 mg Albuterol (Ventolin 2.5 Mg/3 Ml Neb.Tracey*) 2.5 mg INH Q4H PRN PRN Reason: SOB/WHEEZING Last Admin: 08/08/17 07:54 Dose: 2.5 mg Amoxicillin/Clavulanate Potassium (Augmentin Tab*) 875 mg PO BID [facility] Last Admin: 08/08/17 10:11 Dose: 875 mg Apixaban (Eliquis*) 5 mg PO BID [facility] Last Admin: 08/08/17 08:04 Dose: 5 mg Atorvastatin Calcium (Lipitor*) 40 mg PO 1700 [facility] Last Admin: 08/07/17 18:22 Dose: 40 mg Clopidogrel Bisulfate (Plavix Tab*) 75 mg PO DAILY [facility] Last Admin: 08/08/17 08:03 Dose: 75 mg Diltiazem HCl (Cardizem Cd Cap*) 120 mg PO DAILY [facility] Last Admin: 08/08/17 08:03 Dose: 120 mg Duloxetine HCl (Cymbalta Cap*) 30 mg PO DAILY [facility] Last Admin: 08/08/17 08:02 Dose: 30 mg Gabapentin (Neurontin Cap(*)) 300 mg PO TID PRN PRN Reason: PAIN Last Admin: 08/08/17 08:03 Dose: 300 mg Guaifenesin (Robitussin*) 10 ml PO QID [facility] Last Admin: 08/08/17 08:02 Dose: 10 ml Ipratropium [place] (Atrovent 0.5 Mg Neb.Tracey*) 0.5 mg INH QID PRN PRN Reason: SOB/WHEEZING Last Admin: 08/08/17 07:54 Dose: 0.5 mg Levothyroxine Sodium (Synthroid Tab*) 175 mcg PO DAILY@0600 [facility] Last Admin: 08/08/17 05:41 Dose: 175 mcg Metoprolol Succinate (Toprol Xl Tab*) 50 mg PO DAILY [facility] Last Admin: 08/08/17 08:02 Dose: 50 mg Mometasone Furoate (Asmanex 220 Mcg Mdi *) 2 puff INH QPM [facility] Last Admin: 08/07/17 20:33 Dose: 2 puff Nystatin (Nystatin Suspension*) 500,000 units PO QID [facility] Stop: 08/14/17 13:52 Last Admin: 08/08/17 08:02 Dose: 500,000 units Pantoprazole Sodium (Protonix Tab (Nf)) 40 mg PO BID [facility] Last Admin: 08/08/17 08:02 Dose: 40 mg Potassium Chloride (Klor Con Er Tab*) 20 meq PO BID [facility] Stop: 08/08/17 21:01 Last Admin: 08/08/17 08:03 Dose: 20 meq Prednisone (Deltasone Tab*) 20 mg PO DAILY [facility] Last Admin: 08/08/17 08:03 Dose: 20 mg Quetiapine Fumarate (Seroquel Tab*) 75 mg PO BEDTIME [facility] Last Admin: 08/07/17 20:57 Dose: 75 mg Tramadol HCl (Ultram*) 50 mg PO Q8H PRN PRN Reason: PAIN Last Admin: 08/08/17 08:02 Dose: 50 mg Vital Signs - 8 hr 08/08/17 08/08/17 08/08/17 08:00 08:02 08:03 Respiratory 18 22 22 Rate 08/08/17 08/08/17 10:37 10:38 Respiratory 16 16 Rate Oxygen Devices in Use Now: None Appearance: Patient is a 66yo female who appears older than stated age and is sitting in the bed in [facility]. Eyes: No Scleral Icterus, PERRLA Ears/Nose/Mouth/Throat: NL Teeth, Lips, Gums, Clear Oropharnyx, Mucous Membranes Moist Neck: NL Appearance and Movements; NL JVP, Trachea Midline Respiratory: Symmetrical Chest Expansion and Respiratory Effort, - - Wheezes and Rhonchi throughout. Improved from previous exam. Cardiovascular: RRR, No Edema, - - Grade 2/6 holosystolic murmur heard best at LLSB. Consistent with previous exam. Abdominal: No Hepatosplenomegaly, - - Tenderness to palpation in LLQ. No rebound or guarding. Feels muscular to patient. Lymphatic: No Cervical Adenopathy Extremities: No Edema, No Clubbing, Cyanosis Skin: No Rash or Ulcers, No Nodules or Sclerosis Neurological: Alert and Oriented x 3, NL Sensation, - - Left hand weakness consistent with previous exam. 4-/5 strength on right side. Result Diagrams: 08/08/17 04:50 08/08/17 04:50 Microbiology and Other Data: Microbiology 08/04/17 11:15 Gram Stain - Final Sputum Assess/Plan/Problems-Billing Assessment: Patient is a 66yo female with a PMH of Stroke, PNA, CAD, GERD, Afib, Lung CA s/ p lobectomy who presents with lobar pneumonia and is improving slowly on IV antibiotics. - Patient Problems (1) Pneumonia Current Visit: Yes Status: Acute Code(s): J18.9 - PNEUMONIA, UNSPECIFIED ORGANISM SNOMED Code(s): 980533514 Comment: CRP significantly decreased. De-escalated therapy to Augmentin. Appropriate choice for empiric coverage of hospital acquired and aspiration pneumonias. Continue guaifenesin, start ISB and Flutter Valve. Taper prednisone slowly ( 10mg every 2 days) for airway inflammation and to decrease damage from highly inflammatory Pneumonia. Weaned off oxygen at rest at this time. (2) Anemia Current Visit: No Status: Acute Priority: High Code(s): D64.9 - ANEMIA, UNSPECIFIED SNOMED Code(s): 903183872 Comment: Anemic. Patient is near her baseline. No evidence of bleeding currently. Increase protonix. No epigastric pain. No melena or bloody stools. Patient has borderline low iron and ferritin with low %saturation. Consider iron supplementation after acute phase of illness. (3) CAD (coronary artery disease) Current Visit: No Status: Chronic Priority: High Code(s): I25.10 - ATHSCL HEART DISEASE OF [place] CORONARY ARTERY W/O ANG PCTRS SNOMED Code(s): 86654880 Comment: Known CAD with known lesion of LAD and total occlusion of Posterior decending artery. Not stentable. Continue beta luis f, Plavix, statin, and cardizem. Patient should still be desensitized to aspirin when able for maximal secondary prevention of [place]. (4) Atrial fibrillation with RVR Current Visit: No Status: Acute Code(s): I48.91 - UNSPECIFIED ATRIAL FIBRILLATION SNOMED Code(s): 285175454654018 Comment: Remains in NSR. Continue diltiazem CD and metoprolol tartrate. Eliquis given her elevated [id number] (5) H/O: CVA (cerebrovascular accident) Current Visit: No Status: Acute Code(s): Z86.73 - PRSNL HX OF TIA (TIA), AND CEREB INFRC W/O RESID DEFICITS SNOMED Code(s): 147292749 Comment: Significant residual left sided weakness. Intermittent Afib. Continue eliquis, Plavix, Statin. (6) Safety awareness deficit Current Visit: No Status: Acute Priority: High Code(s): DBJ6122 - SNOMED Code(s): 860290664 Comment: Patient states she does well at home but is admitted repeatedly due to inability to cope at home. Patient deemed unsafe to go home by OT. Would benefit from [facility]. Patient is currently in agreement to go to [facility]. Will consult psychiatry for competence if patient will not consent to rehab. (7) Tobacco abuse Current Visit: No Status: Acute Code(s): Z72.0 - TOBACCO USE SNOMED Code(s ): 389322552 Comment: Pt advised to quit smoking and avoid second hand smoke. Possibly the reason she signed out of the intermediate was to go home and smoke. (8) Anxiety Current Visit: No Status: Chronic Priority: High Code(s): F41.9 - ANXIETY DISORDER, UNSPECIFIED SNOMED Code(s): 10484231 Comment: Continue decreased seroquel and Duloxetine for hyponatremia. Anxiety likely contributes significantly to numerous readmissions. History of benzodiazepine abuse. Would benefit from outpatient conseling. Currently no signs of significant anxiety. (9) COPD (chronic obstructive pulmonary disease) Current Visit: No Status: Chronic Code(s): J44.9 - CHRONIC OBSTRUCTIVE PULMONARY DISEASE, UNSPECIFIED SNOMED Code(s): 73375139 Comment: Mild exacerbation due to pneumonia. Continue inhalers and taper steroids. (10) GERD (gastroesophageal reflux disease) Current Visit: No Status: Chronic Code(s): K21.9 - GASTRO-ESOPHAGEAL REFLUX DISEASE WITHOUT ESOPHAGITIS SNOMED Code(s): 621266764 Comment: Protonix 40 BID. Recent diagnosis of gastritis. Appreciate speech therapy input. Patient describes waking up with gastric contents in mouth several times a week. Likely aspirating gastric contents and possibly contributing to pneumonia. Counseled on lifestyle modifications to decrease GERD. Patient states she was diagnosed with hiatal hernia [address] Acevedo. Patient should follow up for consideration of surgical fixation outpatient to possibly decreased pneumonia frequency. (11) History of lung cancer Current Visit: No Status: Chronic Priority: High Code(s): Z85.118 - PERSONAL HISTORY OF MALIGNANT NEOPLASM OF BRONCHUS AND LUNG SNOMED Code(s): 633477553 Comment: Need f/u ct in 2 months, previous ct with small nodule. Follows with Dr. Cloud. Unable to go to appointments due to being hospitalized multiple times. (12) Hypertension Current Visit: No Status: Chronic Code(s): I10 - ESSENTIAL (PRIMARY) HYPERTENSION SNOMED Code(s): 03436879 Comment: Well controlled, continue home medications. (13) Hyponatremia Current Visit: No Status: Chronic Priority: High Code(s): E87.1 - HYPO- OSMOLALITY AND HYPONATREMIA SNOMED Code(s): 28111982 Comment: Improved 08/05. Continue reduced duloxetine dose and reduced quetiapine dose. Was not symptomatic. (14) Hypothyroidism Current Visit: No Status: Chronic Code(s): E03.9 - HYPOTHYROIDISM, UNSPECIFIED SNOMED Code(s): 25770623 Comment: Continue synthroid 150mcg daily (15) DVT prophylaxis Current Visit: No Status: Acute Code(s): CKI9494 - SNOMED Code(s): 269179247 Comment: Lam (16) Full code status Current Visit: No Status: Acute Code(s): Z78.9 - OTHER SPECIFIED HEALTH STATUS SNOMED Code(s): 948574052 Comment: Status and Disposition: Admitted inpatient. Patient would benefit from [facility].
[2017-08-08] MEDS: Atorvastatin* 40 MG TAB PO SCH (17:00)
[2017-08-08] MEDS: Mometasone 220 MCG MDI INH SCH (17:44)
[2017-08-08] MEDS: QUEtiapine TAB* 25 MG PO SCH (22:04)
[2017-08-09 05:15] LABS: Hematocrit 28 % (35-47); Hemoglobin 9.2 g/dl (12.0-16.0); Mean Corpuscular HGB Conc 33 g/dl (31-36); Mean Corpuscular Hemoglobin 30 pg (27-31); Mean Corpuscular Volume 90 fL (80-97); Mean Platelet Volume 8 um3 (7.4-10.4); Platelet Count 377 10^3/ul (150-450); Red Blood Count 3.13 10^6/ul (4.0-5.4); Red Cell Distribution Width 17 % (10.5-15); White Blood Count 14.8 10^3/ul (3.5-10.8)
[2017-08-09 05:16] LABS: ABS Basophils 0 10^3/ul (0-0.2); ABS Eosinophils 0.2 10^3/ul (0-0.6); ABS Lymphocytes 2.2 10^3/ul (1.0-4.8); ABS Monocytes 1.6 10^3/ul (0-0.8); ABS Neutrophils 10.8 10^3/ul (1.5-7.7); ABS Nucleated RBC 0 10^3/ul; Eosinophil % 1.1 % (0-6); Lymphocyte % 15.1 % (25-47); Nucleated Red Blood Cells % 0
[2017-08-09 05:36] LABS: EGFR Non-African American 81.3 (>60)
[2017-08-09] MEDS: Levothyroxine TAB* 175 MCG TAB PO SCH (05:52)
[2017-08-09] MEDS: traMADol TAB* 50 MG PO PRN ×3 (07:28→20:52)
[2017-08-09] MEDS: Acetaminophen TAB* 325 MG PO PRN ×3 (07:32→20:51)
[2017-08-09] MEDS: Clopidogrel TAB* 75 MG PO SCH (10:02)
[2017-08-09] MEDS: Metoprolol Succinate XL TAB* 50 MG PO SCH (10:02)
[2017-08-09] MEDS: Apixaban* 5 MG TAB PO SCH ×2 (10:02→20:32)
[2017-08-09] MEDS: Amoxicillin/Clavulanate TAB* 875 MG PO SCH ×2 (10:02→20:32)
[2017-08-09] MEDS: Nystatin SUSPENSION* 100000 UNITS/ML 5 ML UDC PO SCH ×4 (10:02→20:31)
[2017-08-09] MEDS: guaiFENesin LIQ* 100 MG/5 ML UDC PO SCH ×4 (10:02→20:32)
[2017-08-09] MEDS: predniSONE TAB* 20 MG PO SCH (10:02)
[2017-08-09] MEDS: Diltiazem CD CAP* 120 MG PO SCH (10:03)
[2017-08-09] MEDS: DULoxetine DR CAP* 30 MG CAP.DR PO SCH (10:03)
[2017-08-09] MEDS: CMCS Pantoprazole TAB (NF) 40 MG TAB PO SCH ×2 (10:03→20:32)
--- NOTE | 2017-08-09 14:04 | PN ---
Subjective Date of Service: 08/09/17 Interval History: Ms. Glover reports that she is feeling better overall. She has been up and able to ambulate to the bathroom though she does become winded by the time she gets back to her bed. She denies chest pain. She denies nausea or abdominal pain. She is still amenable to going to short term rehab. Family History: Unchanged from Admission Social History: Unchanged from Admission Past Medical History: Unchanged from Admission Objective Active Medications: Acetaminophen (Tylenol Tab*) 650 mg PO Q6H PRN Albuterol (Ventolin 2.5 Mg/3 Ml Neb.Tracey*) 2.5 mg INH Q4H PRN Amoxicillin/Clavulanate Potassium (Augmentin Tab*) 875 mg PO BID RAMSES Apixaban (Eliquis*) 5 mg PO BID RAMSES Atorvastatin Calcium (Lipitor*) 40 mg PO 1700 RAMSES Clopidogrel Bisulfate (Plavix Tab*) 75 mg PO DAILY RAMSES Diltiazem HCl (Cardizem Cd Cap*) 120 mg PO DAILY RAMSES Duloxetine HCl (Cymbalta Cap*) 30 mg PO DAILY RAMSES Gabapentin (Neurontin Cap(*)) 300 mg PO TID PRN Guaifenesin (Robitussin*) 10 ml PO QID RAMSES Ipratropium [place] (Atrovent 0.5 Mg Neb.Tracey*) 0.5 mg INH QID PRN Levothyroxine Sodium (Synthroid Tab*) 175 mcg PO DAILY@0600 RAMSES Metoprolol Succinate (Toprol Xl Tab*) 50 mg PO DAILY RAMSES Mometasone Furoate (Asmanex 220 Mcg Mdi *) 2 puff INH QPM RAMSES Nystatin (Nystatin Suspension*) 500,000 units PO QID RAMSES Pantoprazole Sodium (Protonix Tab (Nf)) 40 mg PO BID RAMSES Prednisone (Deltasone Tab*) 20 mg PO DAILY RAMSES Quetiapine Fumarate (Seroquel Tab*) 75 mg PO BEDTIME RAMSES Tramadol HCl (Ultram*) 50 mg PO Q6H PRN Vital Signs: Temp Pulse Resp BP Pulse Ox 97.6 F 76 16 153/81 95 08/09/17 12:45 08/09/17 12:45 08/09/17 12:45 08/09/17 12:45 08/09/17 12:45 Oxygen Devices in Use Now: None Appearance: Female lying in bed in NAD Eyes: No Scleral Icterus Ears/Nose/Mouth/Throat: Mucous Membranes Moist Neck: Trachea Midline Respiratory: - - Rhonchi in bases Cardiovascular: NL Sounds; No Murmurs; No JVD, No Edema Abdominal: NL Sounds; No Tenderness; No Distention Lymphatic: No Cervical Adenopathy Extremities: No Edema Skin: No Rash or Ulcers Neurological: Alert and Oriented x 3, NL Muscle Strength and Tone Nutrition: Taking PO's Result Diagrams: 08/09/17 04:41 08/09/17 04:41 Microbiology and Other Data: . Assess/Plan/Problems-Billing Assessment: Ms. Glover is a 66yo female with a PMH of Stroke, PNA, CAD, GERD, Afib, Lung CA s/p lobectomy who presents with lobar pneumonia and is improving slowly on IV antibiotics. - Patient Problems (1) Pneumonia Comment: - Resolved. CRP now neglibile, though leukocytosis is mildly worse today. Weaned off oxygen at rest at this time. - Continue augmentin. Continue guaifenesin, start ISB and Flutter Valve. Taper prednisone slowly (10mg every 2 days) for airway inflammation and to decrease damage from highly inflammatory Pneumonia. (2) COPD (chronic obstructive pulmonary disease) Comment: - Mild exacerbation due to pneumonia. Continue inhalers and taper steroids. (3) GERD (gastroesophageal reflux disease) Comment: - Protonix 40 BID. Recent diagnosis of gastritis. - Appreciate speech therapy input. Patient describes waking up with gastric contents in mouth several times a week. Likely aspirating gastric contents and possibly contributing to pneumonia. Counseled on lifestyle modifications to decrease GERD. Patient states she was diagnosed with hiatal hernia [address] Acevedo. Patient should follow up for consideration of surgical fixation outpatient to possibly decreased pneumonia frequency. (4) Anemia Comment: - Anemic. Patient is near her baseline. - No evidence of bleeding currently. Increase protonix. No epigastric pain. No melena or bloody stools. - Patient has borderline low iron and ferritin with low %saturation. Consider iron supplementation after acute phase of illness. (5) H/O: CVA (cerebrovascular accident) Comment: - Significant residual left sided weakness. - Continue eliquis, plavix, atorvastatin. (6) Afib Status: Acute Comment: - Continue eliquis. - Continue metoprolol and diltiazem. (7) CAD (coronary artery disease) Comment: - Asymptomatic. - Known CAD with known lesion of LAD and total occlusion of Posterior decending artery. Not stentable. Continue beta luis f, plavix, statin, and cardizem. Patient should still be desensitized to aspirin when able for maximal secondary prevention of MA. (8) Hypertension Comment: - Well controlled, continue metoprolol, diltiazem. (9) HLD (hyperlipidemia) Comment: - Continue lipitor. (10) History of lung cancer Comment: - Need f/u ct in 2 months, previous ct with small nodule. Follows with Dr. Cloud. Unable to go to appointments due to being hospitalized multiple times. (11) Hyponatremia Comment: - Resolved. Continue reduced duloxetine dose and reduced quetiapine dose. Was not symptomatic. (12) Hypothyroidism Comment: - Continue synthroid 150mcg daily (13) Anxiety Comment: - Currently no signs of significant anxiety. - Continue decreased seroquel and Duloxetine for hyponatremia. - Anxiety likely contributes significantly to numerous readmissions. History of benzodiazepine abuse. Would benefit from outpatient conseling. (14) Depression Comment: - Continue cymbalta and seroquel. (15) Safety awareness deficit Comment: - Patient is currently in agreement to go to [facility], but will consult psychiatry for competence if patient will not consent to rehab. - Patient states she does well at home but is admitted repeatedly due to inability to cope at home. Patient deemed unsafe to go home by OT. Would benefit from [facility]. Will consult psychiatry for competence if patient will not consent to rehab. (16) DVT prophylaxis Comment: - Lam (17) Full code status Comment: Status and Disposition: Admitted inpatient. Patient would benefit from [facility], accepted to [facility].
[2017-08-09] MEDS: Albuterol 2.5 MG/3 ML NEB.SOL* (0.083%) INH PRN (15:31)
[2017-08-09] MEDS: Atorvastatin* 40 MG TAB PO SCH (17:27)
[2017-08-09] MEDS: Mometasone 220 MCG MDI INH SCH (19:36)
[2017-08-09] MEDS: QUEtiapine TAB* 25 MG PO SCH (20:32)
[2017-08-10] MEDS: Acetaminophen TAB* 325 MG PO PRN ×2 (02:43→08:55)
[2017-08-10] MEDS: traMADol TAB* 50 MG PO PRN ×2 (02:44→08:56)
[2017-08-10] MEDS: Levothyroxine TAB* 175 MCG TAB PO SCH (05:14)
[2017-08-10 05:56] LABS: ABS Basophils 0 10^3/ul (0-0.2); ABS Eosinophils 0.1 10^3/ul (0-0.6); ABS Lymphocytes 2.5 10^3/ul (1.0-4.8); ABS Monocytes 1.4 10^3/ul (0-0.8); ABS Neutrophils 11.1 10^3/ul (1.5-7.7); ABS Nucleated RBC 0 10^3/ul; Eosinophil % 0.9 % (0-6); Hematocrit 29 % (35-47); Hemoglobin 9.5 g/dl (12.0-16.0); Lymphocyte % 16.2 % (25-47); Mean Corpuscular HGB Conc 33 g/dl (31-36); Mean Corpuscular Hemoglobin 29 pg (27-31); Mean Corpuscular Volume 89 fL (80-97); Mean Platelet Volume 8 um3 (7.4-10.4); Nucleated Red Blood Cells % 0; Platelet Count 357 10^3/ul (150-450); Red Blood Count 3.23 10^6/ul (4.0-5.4); Red Cell Distribution Width 17 % (10.5-15); White Blood Count 15.1 10^3/ul (3.5-10.8)
--- NOTE | 2017-08-10 07:52 | PN ---
Subjective Date of Service: 08/10/17 Interval History: Ms. Glover states that she is feeling ok today and has no acute complaints. She remains agreeable to short term rehab at [facility]. Family History: Unchanged from Admission Social History: Unchanged from Admission Past Medical History: Unchanged from Admission Objective Active Medications: Acetaminophen (Tylenol Tab*) 650 mg PO Q6H PRN Albuterol (Ventolin 2.5 Mg/3 Ml Neb.Tracey*) 2.5 mg INH Q4H PRN Amoxicillin/Clavulanate Potassium (Augmentin Tab*) 875 mg PO BID RAMSES Apixaban (Eliquis*) 5 mg PO BID RAMSES Atorvastatin Calcium (Lipitor*) 40 mg PO 1700 RAMSES Clopidogrel Bisulfate (Plavix Tab*) 75 mg PO DAILY RAMSES Diltiazem HCl (Cardizem Cd Cap*) 120 mg PO DAILY RAMSES Duloxetine HCl (Cymbalta Cap*) 30 mg PO DAILY RAMSES Gabapentin (Neurontin Cap(*)) 300 mg PO TID PRN Guaifenesin (Robitussin*) 10 ml PO QID RAMSES Ipratropium [place] (Atrovent 0.5 Mg Neb.Tracey*) 0.5 mg INH QID PRN Levothyroxine Sodium (Synthroid Tab*) 175 mcg PO DAILY@0600 RAMSES Metoprolol Succinate (Toprol Xl Tab*) 50 mg PO DAILY RAMSES Mometasone Furoate (Asmanex 220 Mcg Mdi *) 2 puff INH QPM RAMSES Nystatin (Nystatin Suspension*) 500,000 units PO QID RAMSES Pantoprazole Sodium (Protonix Tab (Nf)) 40 mg PO BID RAMSES Prednisone (Deltasone Tab*) 20 mg PO DAILY RAMSES Quetiapine Fumarate (Seroquel Tab*) 75 mg PO BEDTIME RAMSES Tramadol HCl (Ultram*) 50 mg PO Q6H PRN Vital Signs: Temp Pulse Resp BP Pulse Ox 98.2 F 79 166 167/96 100 08/10/17 00:28 08/10/17 07:19 08/10/17 02:44 08/10/17 07:19 08/10/17 07:19 Oxygen Devices in Use Now: None Appearance: Female sitting up in bed in NAD Eyes: No Scleral Icterus Ears/Nose/Mouth/Throat: Mucous Membranes Moist Neck: Trachea Midline Respiratory: Symmetrical Chest Expansion and Respiratory Effort, - - Few scattered rhonchi in baseas Cardiovascular: NL Sounds; No Murmurs; No JVD, No Edema Abdominal: NL Sounds; No Tenderness; No Distention Lymphatic: No Cervical Adenopathy Extremities: No Edema Skin: No Rash or Ulcers Neurological: Alert and Oriented x 3, NL Muscle Strength and Tone Nutrition: Taking PO's Result Diagrams: 08/10/17 05:01 08/09/17 04:41 Microbiology and Other Data: . Assess/Plan/Problems-Billing Assessment: Ms. Glover is a 66yo female with a PMH of Stroke, PNA, CAD, GERD, Afib, Lung CA s/p lobectomy who presents with lobar pneumonia and is improving slowly on IV antibiotics. - Patient Problems (1) Pneumonia Comment: - Resolved. Now off oxygen - Complete course of augmentin (4 more days). Continue guaifenesin, ISB and Flutter Valve. Taper prednisone. (2) COPD (chronic obstructive pulmonary disease) Comment: - Mild exacerbation due to pneumonia. Continue inhalers and taper steroids. (3) GERD (gastroesophageal reflux disease) Comment: - Protonix 40 BID. Recent diagnosis of gastritis. - Appreciate speech therapy input. Patient describes waking up with gastric contents in mouth several times a week. Likely aspirating gastric contents and possibly contributing to pneumonia. Counseled on lifestyle modifications to decrease GERD. Patient states she was diagnosed with hiatal hernia [address] Acevedo. Patient should follow up for consideration of surgical fixation outpatient to possibly decreased pneumonia frequency. (4) Anemia Comment: - Anemic. Patient is near her baseline. - No evidence of bleeding currently. Increase protonix. No epigastric pain. No melena or bloody stools. - Patient has borderline low iron and ferritin with low %saturation. Consider iron supplementation after acute phase of illness. (5) H/O: CVA (cerebrovascular accident) Comment: - Significant residual left sided weakness. - Continue eliquis, plavix, atorvastatin. (6) Afib Status: Acute Comment: - Continue eliquis. - Continue metoprolol and diltiazem. (7) CAD (coronary artery disease) Comment: - Asymptomatic. - Known CAD with known lesion of LAD and total occlusion of posterior decending artery. Not stentable. Continue beta luis f, plavix, statin, and cardizem. Patient should still be desensitized to aspirin when able for maximal secondary prevention of CT. (8) Hypertension Comment: - Well controlled, continue metoprolol, diltiazem. (9) HLD (hyperlipidemia) Comment: - Continue lipitor. (10) History of lung cancer Comment: - Need f/u ct in 2 months, previous ct with small nodule. Follows with Dr. Cloud. Unable to go to appointments due to being hospitalized multiple times. (11) Hyponatremia Comment: - Resolved. Continue reduced duloxetine dose and reduced quetiapine dose. Was not symptomatic. (12) Hypothyroidism Comment: - Continue synthroid 150mcg daily (13) Anxiety Comment: - Currently no signs of significant anxiety. - Continue decreased seroquel and duloxetine for hyponatremia. - Anxiety likely contributes significantly to numerous readmissions. History of benzodiazepine abuse. Would benefit from outpatient counseling. (14) Depression Comment: - Continue duloxetine and seroquel. (15) Safety awareness deficit Comment: - Patient is currently in agreement to go to [facility]. - Patient states she does well at home but is admitted repeatedly due to inability to cope at home. Patient deemed unsafe to go home by OT. Would benefit from [facility]. (16) DVT prophylaxis Comment: - Lam (17) Full code status Comment: Status and Disposition: Admitted inpatient. Discharge to [facility].
[2017-08-10] MEDS: guaiFENesin LIQ* 100 MG/5 ML UDC PO SCH (08:54)
[2017-08-10] MEDS: Nystatin SUSPENSION* 100000 UNITS/ML 5 ML UDC PO SCH (08:54)
[2017-08-10] MEDS: Amoxicillin/Clavulanate TAB* 875 MG PO SCH (08:55)
[2017-08-10] MEDS: predniSONE TAB* 20 MG PO SCH (08:55)
[2017-08-10] MEDS: Metoprolol Succinate XL TAB* 50 MG PO SCH (08:55)
[2017-08-10] MEDS: Apixaban* 5 MG TAB PO SCH (08:55)
[2017-08-10] MEDS: CMCS Pantoprazole TAB (NF) 40 MG TAB PO SCH (08:55)
[2017-08-10] MEDS: DULoxetine DR CAP* 30 MG CAP.DR PO SCH (08:55)
[2017-08-10] MEDS: Diltiazem CD CAP* 120 MG PO SCH (08:55)
[2017-08-10] MEDS: Clopidogrel TAB* 75 MG PO SCH (08:55)
[2017-08-10 11:28] VITALS: BP 141/74
--- NOTE | 2017-08-10 11:40 | DS ---
CC: Guerrero Gtz NP* DATE OF ADMISSION: 08/04/2017. DATE OF DISCHARGE: 08/10/2017. ATTENDING PHYSICIAN: Dr. Sina Munguia* (dictation provided by Angelique Linton NP). PRIMARY DIAGNOSIS: Pneumonia. SECONDARY DIAGNOSES: 1. Hyponatremia. 2. COPD. 3. History of lung cancer. 4. History of PFO. 5. Hypertension. 6. Hyperlipidemia. 7. Hypothyroidism. 8. Chronic pain. 9. History of PE. 10. History of opiate and benzodiazepine abuse. 11. Anxiety. 12. Coronary artery disease. 13. History of CVA with residual left arm weakness. 14. History of recent GI bleeding in the setting of NSAID overuse. 15. Atrial fibrillation. MEDICATIONS AT THE TIME OF DISCHARGE: 1. Augmentin one tab p.o. b.i.d. times 4 days. 2. Metoprolol Succinate 50 mg p.o. daily. 3. Levothyroxine 175 mcg p.o. daily. 4. Ipratropium nebulizer 0.5 mg inhaled q.i.d. prn. 5. Gabapentin 300 mg p.o. t.i.d. prn. 6. Fluticasone inhaler one puff inhaled b.i.d. 7. Diltiazem CD 120 mg p.o. daily. 8. Duloxetine DR 60 mg p.o. daily. 9. Clopidogrel 75 mg p.o. daily. 10. Atorvastatin 40 mg p.o. daily. 11. Apixaban 5 mg p.o. b.i.d. 12. Albuterol inhaler two puffs inhaled q.4 hours prn. 13. Albuterol nebulizer 2.5 mg q.4 hours prn. 14. Tramadol 25 mg p.o. q.12 hours prn. 15. Prednisone 20 mg via taper. 16. Quetiapine 100 mg p.o. at bedtime. 17. Pantoprazole 40 mg p.o. b.i.d. 18. Guaifenesin prn. HOSPITAL COURSE: Ms. Glover is a 66-year-old female with a past medical history of COPD, lung cancer, hypertension, PE, and six recent admissions to our hospital since May of 2017 who presented to the hospital on 08/04/2017 with concern for shortness of breath. Please see the dictated history and physical from Megan Garcia DO for complete details. In brief, the patient had just been discharge from our hospital on 07/21/2017 after being treated for atrial fibrillation with RVR. At that point she was discharge to [facility]; however, ultimately she signed herself out and returned home. She presented on 08/04/2017 with shortness of breath and was found to have pneumonia. Chest x-ray showed bibasilar infiltrates. Her white blood cell count was 17. She was afebrile. Her CRP was 144. Ms. Glover was admitted to the hospital. She was treated with Vancomycin and Zosyn out of concern for possible healthcare associated pneumonia given multiple trips to the hospital and admissions to local nursing homes. In addition to this, she was started on Prednisone. Ms. Glover has continued to improve slowly over the intervening days. She is now off oxygen. She was switched over to Augmentin to complete a ten day course of antibiotics on 08/09/2017. She had been, as noted, afebrile since arrival. She is ambulating in her room, though she sometimes becomes dyspneic by the time she returns to her bed. She had been deemed to need rehabilitation services by Occupational Therapy. Other issues that are ongoing for Ms. Glover is that she has had GERD and is on Protonix b.i.d. She has had recent diagnosis of gastritis and is now off NSAIDs. The patient reports waking up with gastric contents in her mouth several times a week and reports that she has a history of a hiatal hernia. I recommend that she follow-up with her primary care physician regarding these symptoms as they may be contributing to her pneumonia, although no evidence of aspiration was noted during this hospitalization. She is chronically anemic, but her hemoglobin and hematocrit have remained at baseline. She continues on Eliquis and Plavix for a history of CVA as well as A-fib. I will note that Ms. Glover has had a history of lung cancer and has a previous CT with a small nodule. She does need a follow-up CT in six months. Her last was done in April of 2017. She follows with Dr. Cloud routinely , but because of her multiple hospitalizations, she has not been able to follow- up for those appointments. DISPOSITION: To [facility]. DIET: Low fat, low salt. ACTIVITY: As tolerated. FOLLOW-UP PLAN: 1. Please follow-up for CT chest in approximately October 2017 regarding lung nodule. 2. Please follow-up with primary care provider at the time of discharge from [facility]. Approximately 60 minutes were spent in the discharge of this patient, more than half that time was spent with the patient at the bedside reviewing the events leading up to this hospitalization, performing the physical examination, and reviewing my plan of care. ANGELIQUE LINTON NP [id number]/CPS #: [id number] NICOLE
== END 2017-08-10 11:45 | DRG 194 ==
LOC: ED 23:07 → MEDTELE 08-04 03:41
PROVIDERS: ADMIT Hospitalist; ATTEND Internal Medicine
DX: J18.9 Pneumonia, unspecified organism (principal); E87.1 Hypo-osmolality and hyponatremia; I48.91 Unspecified atrial fibrillation; I69.354 Hemiplegia and hemiparesis following cerebral infarction affecting left non-dominant side; J44.9 Chronic obstructive pulmonary disease, unspecified; E78.5 Hyperlipidemia, unspecified; L65.9 Nonscarring hair loss, unspecified; E03.9 Hypothyroidism, unspecified; G89.29 Other chronic pain; I25.10 Atherosclerotic heart disease of native coronary artery without angina pectoris; F17.210 Nicotine dependence, cigarettes, uncomplicated; F32.9 Major depressive disorder, single episode, unspecified; F41.9 Anxiety disorder, unspecified; D64.9 Anemia, unspecified; I11.9 Hypertensive heart disease without heart failure; F15.11 Other stimulant abuse, in remission; F11.11 Opioid abuse, in remission; K21.9 Gastro-esophageal reflux disease without esophagitis; Z79.01 Long term (current) use of anticoagulants; Z79.02 Long term (current) use of antithrombotics/antiplatelets; Z85.118 Personal history of other malignant neoplasm of bronchus and lung; Z79.899 Other long term (current) drug therapy; Z86.711 Personal history of pulmonary embolism; Z88.6 Allergy status to analgesic agent; Z91.040 Latex allergy status; Z82.49 Family history of ischemic heart disease and other diseases of the circulatory system; Z83.79 Family history of other diseases of the digestive system
CPT/HCPCS: 36415; 71045; 80048; 80051; 80053; 83605; 83735; 83880; 84484; 85025; 85027; 85610; 86140; 87040; 87070; 87077; 87205; 87899; 93005; 94640; 94760; 94762; 99284; 99406; A9270-GY; G8978-GP-CJ; G8979-GP-CH; G8987-GO-CK; G8988-GO-CI; J2060; J2543; J2930; J3370; J3475; J7512

== ENCOUNTER 2017-09-09 17:59 | Inpatient (IN) | payer MEDICARE, BC ==
[2017-09-09 19:40] LABS: Urine Appearance Clear; Urine Blood 1+ (Negative); Urine Color Yellow; Urine Ketones Negative (Negative); Urine Protein 2+(100 mg/dL) (Negative); Urine Specific Gravity 1.005 (1.010-1.030); Urine Urobilinogen Negative (Negative)
[2017-09-09 19:48] LABS: ABS Basophils 0.1 10^3/ul (0-0.2); ABS Eosinophils 0.1 10^3/ul (0-0.6); ABS Lymphocytes 1.4 10^3/ul (1.0-4.8); ABS Monocytes 1.4 10^3/ul (0-0.8); ABS Neutrophils 11.7 10^3/ul (1.5-7.7); ABS Nucleated RBC 0 10^3/ul; Hematocrit 28 % (35-47); Hemoglobin 9.2 g/dl (12.0-16.0); Lymphocyte % 9.5 % (25-47); Mean Corpuscular HGB Conc 33 g/dl (31-36); Mean Corpuscular Hemoglobin 28 pg (27-31); Mean Corpuscular Volume 85 fL (80-97); Mean Platelet Volume 7.3 um3 (7.4-10.4); Nucleated Red Blood Cells % 0.1; Platelet Count 595 10^3/ul (150-450); Red Blood Count 3.31 10^6/ul (4.0-5.4); Red Cell Distribution Width 19 % (10.5-15); White Blood Count 14.7 10^3/ul (3.5-10.8)
--- NOTE | 2017-09-09 19:50 | RAD ---
Indication: Difficulty breathing. History of lung carcinoma with lobectomy in 2011. Chronic obstructive pulmonary disease. Cardiac disease. Comparison: September 04, 2017 Technique: Sitting AP and lateral chest views. Report: Chronic LEFT hemithorax volume loss with leftward mediastinal shift and elevation of the hemidiaphragm secondary to lobectomy. LEFT hilar surgical clips. Hyperinflated RIGHT lung with mild prominence of interstitial markings. No focal pulmonary lesion, alveolar consolidation, pleural effusion, or pneumothorax. Negative for cardiomegaly. Unremarkable central pulmonary vasculature and mediastinal contours accounting for mild leftward rotation. Negative for suspicious focal osseous lesions. IMPRESSION: Chronic obstructive pulmonary disease and postsurgical change of LEFT lung lobectomy. No acute cardiopulmonary process evident.
[2017-09-09 19:59] LABS: EGFR Non-African American 82.6 (>60)
[2017-09-09] MEDS ORDERED: NS 0.9% 1000 ML* 1,000 ML IV ONE (19:59)
[2017-09-09] MEDS ORDERED: Acetaminophen TAB* 325 MG PO ONE (19:59)
[2017-09-09] MEDS ORDERED: Magnesium Oxide TAB* 400 MG PO ONE (20:16)
[2017-09-09] MEDS ORDERED: Levofloxacin TAB* 250 MG PO ONE (21:25)
[2017-09-09] MEDS ORDERED: Morphine INJ* 4 MG/ML 1 ML CARPUJECT IV ONE (23:11)
[2017-09-09] MEDS ORDERED: Morphine VIAL* 4 MG/ML VIAL (1 ml vial) IV ONE ×2 (23:15→23:18)
--- NOTE | 2017-09-10 02:37 | HP ---
H&P (Free Text) History and Physical: PCP: Salvador Gtz NP Date/Time of Evaluation: CC: malaise HPI: Mrs Glover is a 66YO female HX adenoCA s/p L upper lobectomy, CAD/NSTEMI( 04/2017)/cath with 100% RCA & 60-65% mid-LAD lesion (no stent), & COPD continuing to smoke who has been admitted numerous times in recent weeks 2nd anemia, GI bleeding, pneumonia & chest pain. Tonight she presents with onset around 1600 of severe non-exertional non-radiating chest pressure associated with SOB, F/C, & sweats, but no N/V, palpitations, light-headedness, cough, or congestion. Symptoms are worse with activity, better with rest. PMedHx adenoCA L lung s/p upper lobectomy & chemoTX CAD/NSTEMI (04/2017 100% RCA & 60-65% mid-LAD lesion [no stent]) CVA w/ sequelae of LUE weakness COPD pulmonary embolism PFO HTN HLD hypothyroidism GI bleed 2nd NSAIDs chronic LBP recurrent hyponatremia HX opioid & benzodiazepine abuse hiatal hernia anxiety tobacco use disorder Ambulatory Orders Levothyroxine TAB* [Synthroid 25 MCG TAB*] 175 mcg PO DAILY 02/09/16 Albuterol HFA INHALER* [Ventolin HFA Inhaler*] 2 puff INH Q4H PRN 05/03/16 Ipratropium 0.5MG/2.5ML NEB* [Atrovent 0.5 MG NEB.ZACHARY*] 0.5 mg INH QID PRN 05/[address] CAP* [Cymbalta CAP*] 60 mg PO DAILY 02/07/17 Fluticasone HFA 220 mcg(NF) [Flovent Hfa 220 Mcg(NF)] 1 puff INH BID 02/07/17 Atorvastatin* [Lipitor 40 MG*] 40 mg PO 1700 #30 tab 05/07/17 Clopidogrel TAB* [Plavix TAB*] 75 mg PO DAILY #30 tab 05/07/17 Gabapentin CAP(*) [Neurontin 300 CAP(*)] 300 mg PO TID PRN 05/17/17 Diltiazem CD CAP* [Cardizem CD CAP*] 120 mg PO DAILY #30 cap.cd 06/02/17 QUEtiapine TAB* [Seroquel TAB*] 100 mg PO BEDTIME tab MDD 300 06/11/17 Albuterol 2.5MG/3ML (0.083%)* [Ventolin 2.5 MG/3 ML NEB.ZACHARY*] 2.5 mg INH Q4H PRN neb.soln 07/21/17 Apixaban* [Eliquis*] 5 mg PO BID tab 07/21/17 traMADol TAB* [Ultram*] 25 mg PO Q12HR #0 tab MDD 3 tab 07/21/17 Acetaminophen TAB* [Tylenol TAB*] 650 mg PO Q6H PRN tab 08/10/17 Sodium Chloride TAB* 1 gm PO DAILY 09/04/17 Isosorbide Mononitrate ER TAB* [Imdur ER TAB*] 60 mg PO DAILY 09/09/17 Lisinopril TAB* [Prinivil TAB*] 5 mg PO DAILY 09/09/17 Metoprolol Succinate XL TAB* [Toprol XL TAB*] 25 mg PO DAILY 09/09/17 Omeprazole CAP* [Prilosec CAP* 20 MG] 40 mg PO BID 09/09/17 amLODIPine TAB* [Norvasc 5 mg TAB*] 5 mg PO DAILY 09/09/17 Allergies aspirin Allergy (Severe, Verified 09/09/17 18:20) Anaphylatic Shock latex Allergy (Mild, Verified 09/09/17 18:20) Rash PSurgHx L upper lobectomy for adenoCA tonsillectomy hysterectomy SocHx: 1 PPD cigarettes w/ ~25PYHX, denies alcohol, HX opioid & benzodiazepine abuse currently abstinent; full code status FamHx: Mother: ulcerative colitis; Father: passed of VT in his 50s; 1 child passed of suicide and another passed of complications of alcoholism ROS: as above, otherwise reviewed and all were negative vitals: Vital Signs Temp 37.6 C 09/10/17 01:46 Pulse 109 09/10/17 01:46 Resp 18 09/10/17 01:46 BP 149/73 09/10/17 01:46 Pulse Ox 92 09/10/17 01:46 Intake & Output 09/09/17 09/09/17 09/10/17 11:59 23:59 11:59 Intake Total 1000 Balance 1000 Weight 44.452 kg Intake: IV Fluids 1000 Constitutional: NAD, normally developed, frail, non-toxic appearing white female HEENM: atraumatic; sclera/conjunctiva: non-icteric/clear; hearing: clinically intact; oropharynx: clear, mucosa dry Neck: soft tissue: non-tender; thyroid: no mass Pulmonary: diminished B w/ scant LLL crackles, fair aeration, no accessory muscle use CV: TR/RR, normal S1S2, no carotid bruit, no jugular venous distention, 2+ B DP/ PT, no edema Abdominal: soft, non-distended, non-tender, no rebound/guarding/rigidity, normoactive bowel sounds, no hepatosplenomegaly or masses, no costovertebral angle tenderness Musculoskeletal: general: grossly intact; gait: stable Integumental: normal appearance and texture of exposed skin Psychiatric orientation: AA&O to PPS affect: calm mood: cooperative eye contact: good content: reliable responses: timely insight: poor Testing: Lab Results 09/09/17 09/09/17 09/09/17 Range/Units 19:08 19:28 19:28 WBC (3.5-10.8) 10^3/ul RBC (4.0-5.4) 10^6/ul Hgb (12.0-16.0) g/dl Hct (35-47) % MCV (80-97) fL MCH (27-31) pg MCHC (31-36) g/dl RDW (10.5-15) % Plt Count (150-450) 10^3/ul MPV (7.4-10.4) um3 Neut % (Auto) (38-83) % Lymph % (Auto) (25-47) % [place] % (Auto) (0-7) % Eos % (Auto) (0-6) % Baso % (Auto) (0-2) % Absolute Neuts (auto) (1.5-7.7) 10^3/ul Absolute Lymphs (auto) (1.0-4.8) 10^3/ul Absolute Monos (auto) (0-0.8) 10^3/ul Absolute Eos (auto) (0-0.6) 10^3/ul Absolute Basos (auto) (0-0.2) 10^3/ul Absolute Nucleated RBC 10^3/ul Nucleated RBC % APTT 38.9 H (26.0-36.3) seconds Sodium (139-145) mmol/L Potassium (3.5-5.0) mmol/L Chloride (101-111) mmol/L Carbon Dioxide (22-32) mmol/L Anion Gap (2-11) mmol/L BUN (6-24) mg/dL Creatinine (0.51-0.95) mg/dL Est GFR ( Amer) (>60) Est GFR (Non-Af Amer) (>60) BUN/Creatinine Ratio (8-20) Glucose (70-100) mg/dL Lactic Acid (0.5-2.0) mmol/L Calcium (8.6-10.3) mg/dL Magnesium (1.9-2.7) mg/dL Total Bilirubin (0.2-1.0) mg/dL AST (13-39) U/L ALT (7-52) U/L Alkaline Phosphatase (34-104) U/L Total Creatine Kinase (10-223) U/L CK-MB (CK-2) (0.6-6.3) ng/mL Troponin I (<0.04) ng/mL C-Reactive Protein (< 5.00) mg/L B-Natriuretic Peptide 118 H ( - 100) pg/mL Total Protein (6.4-8.9) g/dL Albumin (3.2-5.2) g/dL Globulin (2-4) g/dL Albumin/Globulin Ratio (1-3) Urine Color Yellow Urine Appearance Clear Urine pH 7.0 (5-9) Ur Specific [place] 1.005 L (1.010-1.030) Urine Protein 2+(100 mg/dl) A (Negative) Urine Ketones Negative (Negative) Urine Blood 1+ A (Negative) Urine Nitrate Negative (Negative) Urine Bilirubin Negative (Negative) Urine Urobilinogen Negative (Negative) Ur Leukocyte Esterase Negative (Negative) Urine WBC (Auto) Trace(0-5/hpf) (Absent) Urine RBC (Auto) Trace(0-2/hpf) (Absent) Ur Squamous Epith Cells Present A (Absent) Urine Bacteria Absent (Absent) Urine Glucose Negative (Negative) 09/09/17 09/09/17 09/09/17 Range/Units 19:28 19:28 19:28 WBC 14.7 H (3.5-10.8) 10^3/ul RBC 3.31 L (4.0-5.4) 10^6/ul Hgb 9.2 L (12.0-16.0) g/dl Hct 28 L (35-47) % MCV 85 (80-97) fL MCH 28 (27-31) pg MCHC 33 (31-36) g/dl RDW 19 H (10.5-15) % Plt Count 595 H D (150-450) 10^3/ul MPV 7.3 L (7.4-10.4) um3 Neut % (Auto) 79.3 (38-83) % Lymph % (Auto) 9.5 L (25-47) % [place] % (Auto) 9.6 H (0-7) % Eos % (Auto) 1.0 (0-6) % Baso % (Auto) 0.6 (0-2) % Absolute Neuts (auto) 11.7 H (1.5-7.7) 10^3/ul Absolute Lymphs (auto) 1.4 (1.0-4.8) 10^3/ul Absolute Monos (auto) 1.4 H (0-0.8) 10^3/ul Absolute Eos (auto) 0.1 (0-0.6) 10^3/ul Absolute Basos (auto) 0.1 (0-0.2) 10^3/ul Absolute Nucleated RBC 0 10^3/ul Nucleated RBC % 0.1 APTT (26.0-36.3) seconds Sodium 132 L (139-145) mmol/L Potassium 3.9 (3.5-5.0) mmol/L Chloride 98 L (101-111) mmol/L Carbon Dioxide 23 (22-32) mmol/L Anion Gap 11 (2-11) mmol/L BUN 9 (6-24) mg/dL Creatinine 0.71 (0.51-0.95) mg/dL Est GFR ( Amer) 106.3 (>60) Est GFR (Non-Af Amer) 82.6 (>60) BUN/Creatinine Ratio 12.7 (8-20) Glucose 83 (70-100) mg/dL Lactic Acid 0.5 (0.5-2.0) mmol/L Calcium 9.2 (8.6-10.3) mg/dL Magnesium 1.7 L (1.9-2.7) mg/dL Total Bilirubin 0.30 (0.2-1.0) mg/dL AST 13 (13-39) U/L ALT 9 (7-52) U/L Alkaline Phosphatase 78 (34-104) U/L Total Creatine Kinase 26 (10-223) U/L CK-MB (CK-2) 2.0 (0.6-6.3) ng/mL Troponin I 0.01 (<0.04) ng/mL C-Reactive Protein 80.85 H (< 5.00) mg/L B-Natriuretic Peptide ( - 100) pg/mL Total Protein 7.1 (6.4-8.9) g/dL Albumin 3.8 (3.2-5.2) g/dL Globulin 3.3 (2-4) g/dL Albumin/Globulin Ratio 1.2 (1-3) Urine Color Urine Appearance Urine pH (5-9) Ur Specific [place] (1.010-1.030) Urine Protein (Negative) Urine Ketones (Negative) Urine Blood (Negative) Urine Nitrate (Negative) Urine Bilirubin (Negative) Urine Urobilinogen (Negative) Ur Leukocyte Esterase (Negative) Urine WBC (Auto) (Absent) Urine RBC (Auto) (Absent) Ur Squamous Epith Cells (Absent) Urine Bacteria (Absent) Urine Glucose (Negative) 09/09/17 09/10/17 Range/Units 22:19 01:18 WBC (3.5-10.8) 10^3/ul RBC (4.0-5.4) 10^6/ul Hgb (12.0-16.0) g/dl Hct (35-47) % MCV (80-97) fL MCH (27-31) pg MCHC (31-36) g/dl RDW (10.5-15) % Plt Count (150-450) 10^3/ul MPV (7.4-10.4) um3 Neut % (Auto) (38-83) % Lymph % (Auto) (25-47) % [place] % (Auto) (0-7) % Eos % (Auto) (0-6) % Baso % (Auto) (0-2) % Absolute Neuts (auto) (1.5-7.7) 10^3/ul Absolute Lymphs (auto) (1.0-4.8) 10^3/ul Absolute Monos (auto) (0-0.8) 10^3/ul Absolute Eos (auto) (0-0.6) 10^3/ul Absolute Basos (auto) (0-0.2) 10^3/ul Absolute Nucleated RBC 10^3/ul Nucleated RBC % APTT (26.0-36.3) seconds Sodium (139-145) mmol/L Potassium (3.5-5.0) mmol/L Chloride (101-111) mmol/L Carbon Dioxide (22-32) mmol/L Anion Gap (2-11) mmol/L BUN (6-24) mg/dL Creatinine (0.51-0.95) mg/dL Est GFR ( Amer) (>60) Est GFR (Non-Af Amer) (>60) BUN/Creatinine Ratio (8-20) Glucose (70-100) mg/dL Lactic Acid (0.5-2.0) mmol/L Calcium (8.6-10.3) mg/dL Magnesium (1.9-2.7) mg/dL Total Bilirubin (0.2-1.0) mg/dL AST (13-39) U/L ALT (7-52) U/L Alkaline Phosphatase (34-104) U/L Total Creatine Kinase (10-223) U/L CK-MB (CK-2) (0.6-6.3) ng/mL Troponin I 0.01 0.01 (<0.04) ng/mL C-Reactive Protein (< 5.00) mg/L B-Natriuretic Peptide ( - 100) pg/mL Total Protein (6.4-8.9) g/dL Albumin (3.2-5.2) g/dL Globulin (2-4) g/dL Albumin/Globulin Ratio (1-3) Urine Color Urine Appearance Urine pH (5-9) Ur Specific [place] (1.010-1.030) Urine Protein (Negative) Urine Ketones (Negative) Urine Blood (Negative) Urine Nitrate (Negative) Urine Bilirubin (Negative) Urine Urobilinogen (Negative) Ur Leukocyte Esterase (Negative) Urine WBC (Auto) (Absent) Urine RBC (Auto) (Absent) Ur Squamous Epith Cells (Absent) Urine Bacteria (Absent) Urine Glucose (Negative) ECG: sinus tachycardia rate 110, Q-waves in II/III/AVF, no ischemia CXR, personally reviewed: IMPRESSION: Chronic obstructive pulmonary disease and postsurgical change of LEFT lung lobectomy. No acute cardiopulmonary process evident. Impression: 66F HX adenoCA lung, COPD, & CAD/NSTEMI/cath showing 100% RCA & 60- 65% LAD (no stents) presents with DIAGNOSIS & PLAN Primary SIRS (tachycardia, leukocytosis) 2nd LLL pneumonia : IV levofloxacin : IVFs : blood & sputum CXs : supplemental oxygen : supportive care Secondary adenoCA L lung s/p upper lobectomy & chemoTX : continue outpatient surveillance HX CAD/NSTEMI (04/2017 100% RCA & 60-65% mid-LAD lesion [no stent]) : continue clopidogrel & isosorbide mononitrate HX CVA w/ sequelae of LUE weakness : continue clopidogrel COPD, not in exacerbation : continue albuterol, ipratropium, fluticasone HX pulmonary embolism : continue apixaban HTN : continue lisinopril, metoprolol, diltiazem, & amlodipine HLD : continue atorvastatin hypothyroidism : continue levothyroxine GERD/GI bleed 2nd NSAIDs : continue omeprazole chronic LBP : continue tramadol, duloxetine, & gabapentin anxiety : continue quetiapine Admission Rational: observation for SIRS 2nd suspected LLL pneumonia DVTp: heparin SQ & SCDs Code Status: full HCP: daughter, Yesy Glover
[2017-09-10] MEDS ORDERED: CMCS: Melatonin (NF) 3 MG TAB PO PRN (02:42)
[2017-09-10] MEDS ORDERED: Nicotine Inhaler* 10 MG AMP INH PRN (02:42)
[2017-09-10] MEDS ORDERED: Mouth Piece, Nicotine* 1 EACH CARTRIDGE INH PRN (02:42)
[2017-09-10] MEDS ORDERED: Ondansetron INJ* 2 MG/ML VIAL IV PRN (02:42)
[2017-09-10] MEDS ORDERED: Ipratropium 0.5MG/2.5ML NEB* 0.5 MG/2.5 ML NEB.SOLN INH PRN (02:43)
[2017-09-10] MEDS ORDERED: Albuterol HFA INHALER* 8 gm MDI INH PRN (02:43)
[2017-09-10] MEDS: Levothyroxine TAB* 175 MCG TAB PO SCH (05:15)
[2017-09-10] MEDS: Acetaminophen TAB* 325 MG PO PRN ×3 (05:15→19:35)
[2017-09-10 06:29] LABS: Hematocrit 27 % (35-47); Hemoglobin 8.8 g/dl (12.0-16.0); Mean Corpuscular HGB Conc 32 g/dl (31-36); Mean Corpuscular Hemoglobin 28 pg (27-31); Mean Corpuscular Volume 85 fL (80-97); Mean Platelet Volume 7.6 um3 (7.4-10.4); Platelet Count 521 10^3/ul (150-450); Red Blood Count 3.19 10^6/ul (4.0-5.4); Red Cell Distribution Width 19 % (10.5-15); White Blood Count 13.8 10^3/ul (3.5-10.8)
[2017-09-10 06:42] LABS: ABS Basophils 0.1 10^3/ul (0-0.2); ABS Eosinophils 0.2 10^3/ul (0-0.6); ABS Lymphocytes 1.8 10^3/ul (1.0-4.8); ABS Monocytes 1.9 10^3/ul (0-0.8); ABS Neutrophils 9.8 10^3/ul (1.5-7.7); ABS Nucleated RBC 0 10^3/ul; Eosinophil % 1.2 % (0-6); Lymphocyte % 13.2 % (25-47); Nucleated Red Blood Cells % 0
[2017-09-10 06:53] LABS: EGFR Non-African American 93.1 (>60)
[2017-09-10] MEDS ORDERED: methylPREDNISolone 125 MG* 2 ML VIAL IV ONE (08:48)
--- NOTE | 2017-09-10 08:59 | PN ---
Subjective Date of Service: 09/10/17 Interval History: Reviewed events prior to presentation. Well for 1 day after dc then yesterday had intermittent episodes of LH while laying down or standing lasting about 1 minute, episodes of hot flashes, then 1 minute of substernal chest pressure like "a 100lb man was standing on my chest." Notes she felt anxious all day "from being at home." Also notes she resumed smoking upon discharge up to 3/4 ppd. She was eating but "probably not enough." Reports taking all her medications including eliquis without missing any doses. Objective Active Medications: Acetaminophen (Tylenol Tab*) 650 mg PO Q6H PRN PRN Reason: FEVER/PAIN Last Admin: 09/10/17 05:15 Dose: 650 mg Albuterol (Ventolin 2.5 Mg/3 Ml Neb.Tracey*) 2.5 mg INH Q4H PRN PRN Reason: SOB/WHEEZING Albuterol (Ventolin Hfa Inhaler*) 2 puff INH Q4H PRN PRN Reason: SOB/WHEEZING Amlodipine Besylate (Norvasc Tab*) 5 mg PO DAILY [facility] Apixaban (Eliquis*) 5 mg PO BID [facility] Atorvastatin Calcium (Lipitor*) 40 mg PO 1700 [facility] Clopidogrel Bisulfate (Plavix Tab*) 75 mg PO DAILY [facility] Device (Nicotine Mouth Piece*) 1 each INH .USE WITH NICOTROL PRN PRN Reason: CRAVING Diltiazem HCl (Cardizem Cd Cap*) 120 mg PO DAILY [facility] Docusate Sodium (Colace Cap*) 200 mg PO BID [facility] Duloxetine HCl (Cymbalta Cap*) 60 mg PO DAILY [facility] Gabapentin (Neurontin Cap(*)) 300 mg PO TID PRN PRN Reason: PAIN Levofloxacin/Dextrose (Levaquin 750 Mg Ivpremix(*)) 750 mg in 150 mls @ 100 mls /hr IVPB Q24H [facility] Lactated Ringer's (Lactated Ringers 1000 Ml Bag*) 1,000 mls @ 125 mls/hr IV PER RATE [facility] Stop: 09/10/17 16:59 Ipratropium [place] (Atrovent 0.5 Mg Neb.Tracey*) 0.5 mg INH QID PRN PRN Reason: SOB/WHEEZING Isosorbide Mononitrate (Imdur Er Tab*) 60 mg PO DAILY [facility] Levothyroxine Sodium (Synthroid Tab*) 175 mcg PO DAILY@0600 [facility] Last Admin: 09/10/17 05:15 Dose: 175 mcg Lisinopril (Prinivil Tab*) 5 mg PO DAILY [facility] Melatonin (Melatonin (Nf)) 3 mg PO BEDTIME PRN; Protocol PRN Reason: Sleep Methylprednisolone Sodium Succinate (Solu-Medrol 125mg *) 125 mg IV ONCE ONE Stop: 09/10/17 08:49 Metoprolol Succinate (Toprol Xl Tab*) 25 mg PO DAILY [facility] Mometasone Furoate (Asmanex 220 Mcg Mdi *) 2 puff INH QPM [facility] Nicotine (Nicotine Inhaler*) 10 mg INH Q2H PRN PRN Reason: CRAVING Ondansetron HCl (Zofran Inj*) 4 mg IV Q6H PRN PRN Reason: NAUSEA Pantoprazole Sodium (Protonix Tab (Nf)) 40 mg PO BID [facility] Prednisone (Deltasone Tab*) 40 mg PO DAILY [facility] Quetiapine Fumarate (Seroquel Tab*) 100 mg PO BEDTIME [facility] Sodium Chloride (Sodium Chloride Tab*) 1 gm PO DAILY [facility] Tramadol HCl (Ultram*) 25 mg PO Q12HR [facility] Vital Signs - 8 hr 09/10/17 09/10/17 09/10/17 01:00 01:30 01:42 Temperature 98.8 F Pulse Rate 108 115 116 Respiratory 17 16 22 Rate Blood Pressure 147/90 152/77 (mmHg) O2 Sat by Pulse 92 93 98 Oximetry 09/10/17 09/10/17 01:46 08:01 Temperature 99.6 F 98.0 F Pulse Rate 109 115 Respiratory 18 18 Rate Blood Pressure 149/73 149/86 (mmHg) O2 Sat by Pulse 92 99 Oximetry Oxygen Devices in Use Now: None Appearance: older than stated age, NAD Eyes: No Scleral Icterus, PERRLA Ears/Nose/Mouth/Throat: - - dry mm Neck: NL Appearance and Movements; NL JVP, Trachea Midline Respiratory: Symmetrical Chest Expansion and Respiratory Effort, - - rhonchorous anteriorly, wheeze posteriorly, prolonged experiatory phase Cardiovascular: - - tachy, 2/6 JULIANNE greatest RUSB Abdominal: NL Sounds; No Tenderness; No Distention Lymphatic: No Cervical Adenopathy Extremities: No Edema Skin: No Rash or Ulcers Neurological: Alert and Oriented x 3 Result Diagrams: 09/10/17 06:02 09/10/17 06:02 Microbiology and Other Data: Microbiology 09/10/17 04:55 Legionella Urinary Antigen - Final Urine Negative Legionella Antigen Streptococcus pneumoniae Ag Screen - Final Negative S. pneumo Antigen 09/10/17 03:00 Influenza Types A,B Antigen ([place]) - Final Nasal Specimen received for Influenza A/B Molecular testing Assess/Plan/Problems-Billing Assessment: 66 yo F h/o lung ca s/p lobectomy, CAD/NSTEMI 2017, CVA, COPD with continued tobacco abuse, GIB on NSAIDs PE, anxiety presents with constellation of symptoms 2 days after discharge including dizziness, SOB, anxiety, and 1 minute chest pain - Patient Problems (1) Shortness of breath Comment: PNA possible although CXR not definitive in setting of previous lobectomy, COPD with continued tobacco abuse upon discharge and current pulmonary exam, anxiety, PE. Will also check for PE given tachycardia and chest pain. I suspect this is largely COPD with resumption of tobacco as well as anxiety as she is self reporting anxiuety after returning home with brief episodes of LH and hot flashes. Will check CTA chest, c/w levaquin until after CT, IV steroids once now then continue PO tomorrow. I collected influenza rapid swab now. (2) Anxiety Comment: May be contributing to current presentation and will be difficult to treat. Has had benzo abuse problems. Currently on cymbalta and seroquel (3) History of pulmonary embolism Comment: c/w gauri check CTA chest (4) COPD exacerbation Comment: acute exacerbation IV steroids now then PO tomorrow (5) Chest pain Comment: Know CAD. 2 close hospital stays with chest pain now 6 negative troponins. Chest pain lasted 1 minute. I do not think she warrents stress test at this point given more likely diagnosis' above (6) Afib Comment: Continue metoprolol and diltiazem and eliquis (7) Anemia Comment: Improving since last admission (8) DVT prophylaxis Comment: adrielqueliza (9) H/O: CVA (cerebrovascular accident) Current Visit: No Status: Acute Code(s): Z86.73 - PRSNL HX OF TIA (TIA), AND CEREB INFRC W/O RESID DEFICITS SNOMED Code(s): 116011111 Comment: Significant residual left sided weakness. When she presented to the ER her wrist was just as weak as it has been. Continue atorvastatin. As above eliquis and plavix are on hold. (10) Tobacco abuse Current Visit: No Status: Acute Code(s): Z72.0 - TOBACCO USE SNOMED Code(s ): 894021223 Comment: Pt advised to quit smoking and avoid second hand smoke. Possibly the reason she signed out of the senior care was to go home and smoke.
[2017-09-10] MEDS ORDERED: traMADol TAB* 50 MG PO SCH (09:00)
[2017-09-10] MEDS ORDERED: Iohexol 350* (CONTRAST) 500 ML MDV IV ONE (09:55)
[2017-09-10] MEDS: Metoprolol Succinate XL TAB* 50 MG PO SCH (10:13)
[2017-09-10] MEDS: Docusate CAP* 100 MG PO SCH ×2 (10:14→21:25)
[2017-09-10] MEDS: DULoxetine DR CAP* 60 MG CAP.DR PO SCH (10:14)
[2017-09-10] MEDS: Clopidogrel TAB* 75 MG PO SCH (10:14)
[2017-09-10] MEDS: Sodium Chloride TAB* 1 GM PO SCH (10:14)
[2017-09-10] MEDS: CMCS: Pantoprazole TAB (NF) 40 MG TAB PO SCH ×2 (10:15→21:16)
[2017-09-10] MEDS: Apixaban* 5 MG TAB PO SCH ×2 (10:15→21:18)
[2017-09-10] MEDS: Diltiazem CD CAP* 120 MG PO SCH (10:15)
[2017-09-10] MEDS: Lisinopril TAB* 5 MG PO SCH (10:15)
[2017-09-10] MEDS: Isosorbide Mononitrate ER TAB* 60 MG PO SCH (10:15)
[2017-09-10] MEDS: amLODIPine TAB* 5 MG PO SCH (10:15)
[2017-09-10] MEDS: Albuterol 2.5 MG/3 ML NEB.SOL* (0.083%) INH PRN (13:23)
[2017-09-10] MEDS: Gabapentin CAP(*) 300 MG PO PRN ×2 (13:53→21:17)
--- NOTE | 2017-09-10 14:22 | RAD ---
INDICATION: Lung cancer. Shortness of breath and tachycardia. Post LEFT lower lobectomy. COMPARISON: September 09, 2017 chest radiograph and May 02, 2017 CT. TECHNIQUE: Multidetector CT images were obtained from the lung apices to the upper abdomen with 49 mL Omnipaque 350 IV contrast. Pulmonary angiogram protocol. Multiplanar reformation including with maximum intensity projection. REPORT: Advanced emphysema. Postsurgical change of LEFT lower lobectomy. Mild alveolar consolidation at the superior segment of the RIGHT lower lobe unchanged small volume of LEFT pleural fluid nonspecific in setting of previous partial LEFT pneumonectomy. 1.1 cm short axis AP window lymph node without change. Negative for cardiomegaly or pericardial effusion. Normal diameter thoracic aorta with mild atherosclerotic plaque. The RIGHT and residual pulmonary arteries to the segmental and subsegmental levels are without filling defects to indicate pulmonary embolism. Negative for suspicious osseous lesions. IMPRESSION: 1. Negative for pulmonary embolism. 2. Mild alveolar consolidation at the superior segment of the RIGHT lower lobe new compared with the prior exam suspicious for an inflammatory infiltrate. 3. Advanced emphysema. 4. Postsurgical change of partial LEFT pneumonectomy. 1.1 cm short axis AP window lymph node without change.
[2017-09-10] MEDS: Atorvastatin* 40 MG TAB PO SCH (16:21)
[2017-09-10] MEDS: traMADol TAB* 50 MG PO PRN (16:21)
--- NOTE | 2017-09-10 16:30 | ED ---
Lauren Winkler Thomas, scribed for Jonathan Cross MD on 09/09/17 at 1849 . HPI Chest Pain - HPI Summary HPI Summary: The patient is a 66 year old female presenting with chest pressure that woke her up from a nap today at 16:00. She rates the pain 7/10. She was recently admitted and discharged two days ago. She also complains of cold sweats. She denies nausea and vomiting. She denies black stools and bright red blood per rectum. - History of Current Complaint Chief Complaint: EDGeneral Time Seen by Provider: 09/09/17 18:22 Hx Obtained From: Patient Onset/Duration: Started Hours Ago - onset today at 16:00, Still Present Timing: Constant Current Severity: Mild Pain Intensity: 2 Pain Scale Used: 0-10 Numeric Character: Pressure/Squeezing Aggravating Factor(s): Nothing Alleviating Factor(s): Nothing Associated Signs and Symptoms: Positive: Chest Pain, Other: - Cold sweats; NEGATIVE: nausea, vomiting, black stools, BRB per rectum - Additional Pertinent History Primary Care Physician: [id number] - Allergy/Home Medications Allergies/Adverse Reactions: Allergies Allergy/AdvReac Type Severity Reaction Status Date / Time aspirin Allergy Severe Anaphylatic Verified 09/09/17 18:20 Shock latex Allergy Mild Rash Verified 09/09/17 18:20 Home Medications: Home Medications Isosorbide Mononitrate ER TAB* [Imdur ER TAB*] 60 mg PO DAILY 09/09/17 [History Confirmed 09/09/17] Lisinopril TAB* [Prinivil TAB*] 5 mg PO DAILY 09/09/17 [History Confirmed ] Metoprolol Succinate XL TAB* [Toprol XL TAB*] 25 mg PO DAILY 09/09/17 [History Confirmed 09/09/17] Omeprazole CAP* [Prilosec CAP* 20 MG] 40 mg PO BID 09/09/17 [History Confirmed 09/09/17] amLODIPine TAB* [Norvasc 5 mg TAB*] 5 mg PO DAILY 09/09/17 [History Confirmed ] PMH/Surg Hx/FS Hx/Imm Hx Endocrine/Hematology History: Reports: Hx Thyroid Disease - hypothyroid, Other Endocrine/Hematological Disorders - Benign goiter Denies: Hx Bone Marrow Disease, Hx Diabetes, Hx Systemic Lupus Erythematosus Cardiovascular History: Reports: Hx Angina, Hx Hypercholesterolemia - was high before cancer,now off meds., Hx Hypertension, Hx Myocardial Infarction - NSTEMI , Other Cardiovascular Problems/Disorders - patent foramen ovale; Murmur, Denies: Hx Congestive Heart Failure, Hx Coronary Artery Disease, Hx Pacemaker /ICD, Hx Valvular Heart Disease Respiratory History: Reports: Hx Asthma, Hx Chronic Obstructive Pulmonary Disease (COPD), Hx Lung Cancer - Left upper lobectomy, Hx Pneumonia, Other Respiratory Problems/Disorders - lung cancer, LOBECTOMY 09/11/11, Emphysema GI History: Reports: Hx Gastroesophageal Reflux Disease, Hx Hiatal Hernia, Other GI Disorders - colitis. 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, Hx Osteoporosis, Hx Scoliosis, Other Musculoskeletal History - scoliosis Denies: Hx Rheumatoid Arthritis Sensory History: Reports: Hx Cataracts - PATIENT STATES BEGINING OF CATARACTS LEFT EYE, Hx Contacts or Glasses, Hx Hearing Problem - right Denies: Hx Hearing Aid Opthamlomology History: Reports: Hx Cataracts - PATIENT STATES BEGINING OF CATARACTS LEFT EYE, Hx Contacts or Glasses Neurological History: Reports: Hx CVA - in 05/16, Hx Headaches, Hx Migraine - Rare post menopause Psychiatric History: Reports: Hx Anxiety, Hx Depression, Hx Community Mental Health Tx, Hx Substance Abuse - opioids Denies: Hx Panic Disorder, Hx Inpatient Treatment - Cancer History Cancer Type, Location and Year: LUNG CA, DIAGNOSED July 2012 Hx Chemotherapy: Yes Hx Radiation Therapy: No Hx Palliative Cancer Treatment: No - Surgical History Surgery Procedure, Year, and Place: LEFT UPPER LUNG REMOVED 09/2012, HYSTERECTOMY , tonsillectomy Hx Anesthesia Reactions: No - Immunization History Date of Tetanus Vaccine: utd Date of Influenza Vaccine: utd Infectious Disease History: No Infectious Disease History: Denies: Hx of Known/Suspected MRSA, Traveled Outside the [place] in Last 30 Days - Family History Known Family History: Positive: Cardiac Disease - Sudden cardiac arrest (father) , Other - son -- glioblastoma. UC mother. Fhx of colitis. - Social History Alcohol Use: None Alcohol Amount: Unknown Hx Substance Use: No Substance Use Type: Reports: None Substance Use Comment - Amount & Last Used: percocet Hx Tobacco Use: Yes Smoking Status (MU): Heavy Every Day Tobacco Smoker Type: Cigarettes Amount Used/How Often: 1/2 pack a day Length of Time of Smoking/Using Tobacco: 47 years Have You Smoked in the Last Year: Yes Review of Systems Positive: Fever, Other - Cold sweats Positive: Chest Pain Negative: Vomiting, Nausea, Other - BRB per rectum, black stools All Other Systems Reviewed And Are Negative: Yes Physical Exam - Summary Physical Exam Summary: VITAL SIGNS: Reviewed. She seems to be warm and tachycardic. GENERAL: Patient is a well-developed and nourished female who is lying comfortable in the stretcher. Patient is not in any acute respiratory distress. She seems to be warm and tachycardic. HEAD AND FACE: No signs of trauma. No ecchymosis, hematomas or skull depressions. No sinus tenderness. EYES: PERRLA, EOMI x 2, No injected conjunctiva, no nystagmus. EARS: Hearing grossly intact. Ear canals and tympanic membranes are within normal limits. MOUTH: Oropharynx within normal limits. NECK: Supple, trachea is midline, no adenopathy, no JVD, no carotid bruit, no c- spine tenderness, neck with full ROM. CHEST: Symmetric, no tenderness at palpation LUNGS: She has crackles in both bases of the lungs. CVS: Tachycardia, regular rhythm, S1 and S2 present, no murmurs or gallops appreciated. ABDOMEN: Soft, non-tender. No signs of distention. No rebound no guarding, and no masses palpated. Bowel sounds are normal. EXTREMITIES: FROM in all major joints, no edema, no cyanosis or clubbing. NEURO: Alert and oriented x 3. No acute neurological deficits. Speech is normal and follows commands. SKIN: Dry and warm Triage Information Reviewed: Yes Vital Signs On Initial Exam: Initial Vitals Temp Pulse Resp BP Pulse Ox 100.1 F 103 20 144/83 91 09/09/17 18:06 09/09/17 18:06 09/09/17 18:06 09/09/17 18:06 09/09/17 18:06 Vital Signs Reviewed: Yes Diagnostics - Vital Signs Vital Signs Temp Pulse Resp BP Pulse Ox 09/09/17 18:06 100.1 F 103 20 144/83 91 - Laboratory Result Diagrams: 09/09/17 19:28 09/09/17 19:28 Lab Statement: Any lab studies that have been ordered have been reviewed, and results considered in the medical decision making process. - Radiology CXR Xray Interpretation: No Acute Changes - IMPRESSION: Chronic obstructive pulmonary disease and postsurgical change of LEFT lung lobectomy. No acute cardiopulmonary process evident. Dr. Cross has reviewed this report. Radiology Interpretation Completed By: Radiologist - EKG 18:19 Cardiac Rate: Tachycardia EKG Rhythm: Sinus Tachycardia - at 110 BPM EKG Interpretation: No ST elevations. LVH. Re-Evaluation - Re-Evaluation First Eval Re-Evaluation Time: 21:33 Comment: Results discussed. Patient will be admitted. Chest Pain Course/Dx - Course Assessment/Plan: The patient is a 66 year old female presenting with chest pressure that woke her up from a nap today at 16:00. She rates the pain 7/10. She was recently admitted and discharged two days ago. She also complains of cold sweats. She denies nausea and vomiting. She denies black stools and bright red blood per rectum. Test results show a WBC 14.7, a slight anemia, and a magnesium of 1.7, for which the patient was given magnesium PO. Urinalysis was negative for UTI. In the ED course, the patient was given Levaquin, Tylenol for the fever, and IV fluids. The patient is still having some tachycardia and productive cough, so therefore I believe that the patient has pneumonia. I discussed the case with Dr. Melton, and he accepted the patient for admission to [facility]. - Diagnoses Provider Diagnoses: Pneumonia - Provider Notifications Discussed Care Of Patient With: Timothy Melton Time Discussed With Above Provider: 21:34 Instructed by Provider To: Admit As Inpatient Discharge - Sign-Out/Discharge Documenting (check all that apply): Discharge - The patient is admitted to [facility] by Dr. Melton - Discharge Plan Condition: Stable Disposition: ADMITTED TO [facility] Referrals: Guerrero Gtz, [employer] [Primary Care Provider] - The documentation as recorded by the Lauren crawford Thomas accurately reflects the service I personally performed and the decisions made by me, Jonathan Cross MD.
[2017-09-10] MEDS: Mometasone 220 MCG MDI INH SCH (19:37)
[2017-09-10] MEDS: QUEtiapine TAB* 100 MG PO SCH (21:17)
[2017-09-10] MEDS: Levofloxacin 750 MG IVPREMIX(* 750 MG/150 ML BAG IVPB SCH (21:18)
[2017-09-11] MEDS: traMADol TAB* 50 MG PO PRN (03:53)
[2017-09-11] MEDS: Levothyroxine TAB* 175 MCG TAB PO SCH (05:48)
[2017-09-11] MEDS: Acetaminophen TAB* 325 MG PO PRN ×2 (10:08→19:37)
[2017-09-11] MEDS: Lisinopril TAB* 5 MG PO SCH (10:09)
[2017-09-11] MEDS: Gabapentin CAP(*) 300 MG PO PRN (10:09)
[2017-09-11] MEDS: Isosorbide Mononitrate ER TAB* 60 MG PO SCH (10:10)
[2017-09-11] MEDS: amLODIPine TAB* 5 MG PO SCH (10:10)
[2017-09-11] MEDS: Docusate CAP* 100 MG PO SCH ×2 (10:10→20:57)
[2017-09-11] MEDS: Metoprolol Succinate XL TAB* 50 MG PO SCH (10:10)
[2017-09-11] MEDS: Sodium Chloride TAB* 1 GM PO SCH (10:11)
[2017-09-11] MEDS: Clopidogrel TAB* 75 MG PO SCH (10:11)
[2017-09-11] MEDS: predniSONE TAB* 20 MG PO SCH (10:11)
[2017-09-11] MEDS: CMCS: Pantoprazole TAB (NF) 40 MG TAB PO SCH ×2 (10:11→20:57)
[2017-09-11] MEDS: DULoxetine DR CAP* 60 MG CAP.DR PO SCH (10:11)
[2017-09-11] MEDS: Apixaban* 5 MG TAB PO SCH ×2 (10:11→20:57)
[2017-09-11] MEDS: Diltiazem CD CAP* 120 MG PO SCH (10:11)
--- NOTE | 2017-09-11 13:15 | PN ---
Subjective Date of Service: 09/11/17 Interval History: Pt complaint of 8/10 headache. Tramadol relieves for about 2 hours then ramps up. Was getting q6 hours at [facility]. Was taking tylenol at home with no relief whatsover. NELSON is bilateral, but more "midline" from forehead to neck. breathing is much better today. Still coughing but no longer with green-yellow sputum. Gave sputum sample this AM States anxiety is better overall though did have a panic attack yesterday. Objective Active Medications: Acetaminophen (Tylenol Tab*) 650 mg PO Q6H PRN PRN Reason: FEVER/PAIN Last Admin: 09/11/17 10:08 Dose: 650 mg Albuterol (Ventolin 2.5 Mg/3 Ml Neb.Tracey*) 2.5 mg INH Q4H PRN PRN Reason: SOB/WHEEZING Last Admin: 09/10/17 13:23 Dose: 2.5 mg Albuterol (Ventolin Hfa Inhaler*) 2 puff INH Q4H PRN PRN Reason: SOB/WHEEZING Amlodipine Besylate (Norvasc Tab*) 5 mg PO DAILY [facility] Last Admin: 09/11/17 10:10 Dose: 5 mg Apixaban (Eliquis*) 5 mg PO BID [facility] Last Admin: 09/11/17 10:11 Dose: 5 mg Atorvastatin Calcium (Lipitor*) 40 mg PO 1700 [facility] Last Admin: 09/10/17 16:21 Dose: 40 mg Clopidogrel Bisulfate (Plavix Tab*) 75 mg PO DAILY [facility] Last Admin: 09/11/17 10:11 Dose: 75 mg Device (Nicotine Mouth Piece*) 1 each INH .USE WITH NICOTROL PRN PRN Reason: CRAVING Diltiazem HCl (Cardizem Cd Cap*) 120 mg PO DAILY [facility] Last Admin: 09/11/17 10:11 Dose: 120 mg Docusate Sodium (Colace Cap*) 200 mg PO BID [facility] Last Admin: 09/11/17 10:10 Dose: Not Given Duloxetine HCl (Cymbalta Cap*) 60 mg PO DAILY [facility] Last Admin: 09/11/17 10:11 Dose: 60 mg Gabapentin (Neurontin Cap(*)) 300 mg PO TID PRN PRN Reason: PAIN Last Admin: 09/11/17 10:09 Dose: 300 mg Levofloxacin/Dextrose (Levaquin 750 Mg Ivpremix(*)) 750 mg in 150 mls @ 100 mls /hr IVPB Q24H [facility] Last Admin: 09/10/17 21:18 Dose: 100 mls/hr Ipratropium [place] (Atrovent 0.5 Mg Neb.Tracey*) 0.5 mg INH QID PRN PRN Reason: SOB/WHEEZING Isosorbide Mononitrate (Imdur Er Tab*) 60 mg PO DAILY [facility] Last Admin: 09/11/17 10:10 Dose: 60 mg Levothyroxine Sodium (Synthroid Tab*) 175 mcg PO DAILY@0600 [facility] Last Admin: 09/11/17 05:48 Dose: 175 mcg Lisinopril (Prinivil Tab*) 5 mg PO DAILY [facility] Last Admin: 09/11/17 10:09 Dose: 5 mg Melatonin (Melatonin (Nf)) 3 mg PO BEDTIME PRN; Protocol PRN Reason: Sleep Last Admin: 09/10/17 21:17 Dose: 3 mg Metoprolol Succinate (Toprol Xl Tab*) 25 mg PO DAILY [facility] Last Admin: 09/11/17 10:10 Dose: 25 mg Mometasone Furoate (Asmanex 220 Mcg Mdi *) 2 puff INH QPM [facility] Last Admin: 09/10/17 19:37 Dose: 2 puff Nicotine (Nicotine Inhaler*) 10 mg INH Q2H PRN PRN Reason: CRAVING Ondansetron HCl (Zofran Inj*) 4 mg IV Q6H PRN PRN Reason: NAUSEA Pantoprazole Sodium (Protonix Tab (Nf)) 40 mg PO BID [facility] Last Admin: 09/11/17 10:11 Dose: 40 mg Prednisone (Deltasone Tab*) 40 mg PO DAILY [facility] Last Admin: 09/11/17 10:11 Dose: 40 mg Quetiapine Fumarate (Seroquel Tab*) 100 mg PO BEDTIME [facility] Last Admin: 09/10/17 21:17 Dose: 100 mg Sodium Chloride (Sodium Chloride Tab*) 1 gm PO DAILY [facility] Last Admin: 09/11/17 10:11 Dose: 1 gm Tramadol HCl (Ultram*) 25 mg PO Q12HR PRN PRN Reason: PAIN Last Admin: 09/11/17 03:53 Dose: 25 mg Vital Signs - 8 hr 0409/11/17 09/11/17 05:45 08:00 08:03 Temperature 97.7 F Pulse Rate 88 Respiratory 16 18 20 Rate Blood Pressure 121/61 (mmHg) O2 Sat by Pulse 97 97 Oximetry 09/11/17 09/11/17 09/11/17 10:09 11:52 12:44 Temperature 97.7 F Pulse Rate 94 Respiratory 16 22 16 Rate Blood Pressure 109/60 (mmHg) O2 Sat by Pulse 95 Oximetry Oxygen Devices in Use Now: None Appearance: NAD. Eyes: No Scleral Icterus, PERRLA Ears/Nose/Mouth/Throat: NL Teeth, Lips, Gums, Mucous Membranes Moist Respiratory: Symmetrical Chest Expansion and Respiratory Effort, - - diffuse coarse rhonchi Cardiovascular: NL Sounds; No Murmurs; No JVD, RRR, - Abdominal: NL Sounds; No Tenderness; No Distention, No Hepatosplenomegaly Extremities: No Edema, No Clubbing, Cyanosis Skin: No Rash or Ulcers, No Nodules or Sclerosis Neurological: Alert and Oriented x 3, NL Sensation, - - left hand weakness. Nutrition: Taking PO's Result Diagrams: 09/10/17 06:02 09/10/17 06:02 Microbiology and Other Data: Microbiology 09/11/17 10:20 Sputum Gram Stain - Final 09/09/17 19:08 Urine Urine Culture - Final 09/09/17 19:57 Blood Venous Aerobic Blood Culture - Preliminary No Growth Day 1 09/09/17 19:57 Blood Venous Anaerobic Blood Culture - Preliminary No Growth Day 1 09/09/17 19:50 Blood Venous Aerobic Blood Culture - Preliminary No Growth Day 1 09/09/17 19:50 Blood Venous Anaerobic Blood Culture - Preliminary No Growth Day 1 09/10/17 08:00 Nasal Influenza Types A,B Antigen ([place]) - Final Specimen received for Influenza A/B Molecular testing 09/10/17 04:55 Urine Legionella Urinary Antigen - Final Negative Legionella Antigen 09/10/17 04:55 Urine Streptococcus pneumoniae Ag Screen - Final Negative S. pneumo Antigen 09/10/17 03:00 Nasal Influenza Types A,B Antigen ([place]) - Final Specimen received for Influenza A/B Molecular testing Assess/Plan/Problems-Billing Assessment: 66 yo F high-utlizer h/o lung ca s/p lobectomy, CAD/NSTEMI 2017, CVA, COPD with continued tobacco abuse, GIB on NSAIDs PE, anxiety, daily headaches since May 2017 (likely medication overuse, fiorcet then tramadol) presents with sepsis secondary to pneumonia and chest pressure. - Patient Problems (1) Sepsis Current Visit: Yes Status: Acute Comment: presented with fever, tachycardia , leukocytosis. Continue levaquin f/u Cultures. BCx NGTD Sputum GS with both gram positive and gram negative. Urine Antigens are negative. add on procalcitonin (2) Anxiety Current Visit: Yes Status: Acute Code(s): F41.9 - ANXIETY DISORDER, UNSPECIFIED SNOMED Code(s): 01917206 Comment: Currently on cymbalta and seroquel Hx of benzo abuse problems. (3) Chronic headache Current Visit: No Status: Chronic Code(s): R51 - HEADACHE SNOMED Code(s): 962892796 Comment: Has been going on since she had flu in May 2017. Was misusing fiorcet in May. was then getting tramadol q6 at [facility] until 09/04 and then [facility] while hospitalized 09/04-09/07. Suspected medication overuse headache describes no photophobia, photophonia or other triggers. Lasts all day each day. b/l going down midline. slight pulsatile quality 3x a minute. states 8/10 pain. calling nurse for more tramadol several times today. Pt attests they are different from the migraines she used to get. Seems like daily chronic tension like headache 2/2 medication overuse vs chronic tension headache(for which TCA like amitripline may be beneficial). I am stopping tramadol and starting valproic acid 15mg/kg followed by 5mg/kg q8 hours for 4 doses. Neurology consulted. triptans are contraindicated given her CAD. NSAIDS contraindicated given her Hx GIB on ibuprofen (was taking 600-800mg TID at time). In general she does not seem to have the capacity to handle her on medications and would benefit from nursing home care nursing. (4) Chest pain Current Visit: Yes Status: Acute Code(s): R07.9 - CHEST PAIN, UNSPECIFIED SNOMED Code(s): 08382482 Comment: Know CAD danielle LAD. 2 close hospital stays with chest pain now 6 negative troponins. Chest pain lasted 1 minute. intermediate term goal is getting aspirin desensitization (5) Depression Current Visit: No Status: Chronic Code(s): F32.9 - MAJOR DEPRESSIVE DISORDER , SINGLE EPISODE, UNSPECIFIED SNOMED Code(s): 30702357 Comment: - Continue duloxetine and seroquel. (6) Afib Current Visit: Yes Status: Acute Code(s): I48.91 - UNSPECIFIED ATRIAL FIBRILLATION SNOMED Code(s): 87531609 Comment: Continue metoprolol and diltiazem and eliquis (7) Anemia Current Visit: Yes Status: Acute Priority: High Code(s): D64.9 - ANEMIA, UNSPECIFIED SNOMED Code(s): 500445459 Comment: Improving since last admission (8) COPD exacerbation Current Visit: Yes Status: Acute Code(s): J44.1 - CHRONIC OBSTRUCTIVE PULMONARY DISEASE W (ACUTE) EXACERBATION SNOMED Code(s): 889245579 Comment: acute exacerbation, inhalers. now prednisone with planned taper. (9) History of pulmonary embolism Current Visit: Yes Status: Acute Code(s): Z86.711 - PERSONAL HISTORY OF PULMONARY EMBOLISM SNOMED Code(s): 955495611 Comment: c/w eliquis no PE on CTA chest (10) H/O: CVA (cerebrovascular accident) Current Visit: No Status: Acute Code(s): Z86.73 - PRSNL HX OF TIA (TIA), AND CEREB INFRC W/O RESID DEFICITS SNOMED Code(s): 837251561 Comment: Significant residual left sided weakness. Continue atorvastatin, eliquis and plavix. CT Head 09/04 did have some concern for white-mackey matter loss of differentiation changes that may have been reflective of acute right MCA territory CVA. Neurology consulted as above. (11) Pneumonia Current Visit: No Status: Acute Code(s): J18.9 - PNEUMONIA, UNSPECIFIED ORGANISM SNOMED Code(s): 373206279 Comment: - plan as above. continue levaquin. Recently 08/06 was treated with zosyn then augmentin (total 10 day course). (12) Tobacco abuse Current Visit: No Status: Acute Code(s): Z72.0 - TOBACCO USE SNOMED Code(s ): 511276193 Comment: Pt restarted smoking after last discharge to home. advised to quit smoking and avoid second hand smoke. nicotine inhaler. (13) CAD (coronary artery disease) Current Visit: No Status: Chronic Priority: High Code(s): I25.10 - ATHSCL HEART DISEASE OF [place] CORONARY ARTERY W/O ANG PCTRS SNOMED Code(s): 45269596 Comment: troponins here negative and previous admission as well. no ischemic EKG changes. Known CAD with known lesion of LAD and total occlusion of posterior decending artery. Not stentable. Continue beta luis f, plavix, statin, and cardizem. Patient should still be desensitized to aspirin when able for maximal secondary prevention of IA. (14) GERD (gastroesophageal reflux disease) Current Visit: No Status: Chronic Code(s): K21.9 - GASTRO-ESOPHAGEAL REFLUX DISEASE WITHOUT ESOPHAGITIS SNOMED Code(s): 502111449 Comment: - Protonix 40 BID. Recent diagnosis of gastritis. - Appreciate speech therapy input. Patient describes waking up with gastric contents in mouth several times a week. Likely aspirating gastric contents and possibly contributing to pneumonia. Counseled on lifestyle modifications to decrease GERD. Patient states she was diagnosed with hiatal hernia [address] Acevedo. Patient should follow up for consideration of surgical fixation outpatient to possibly decreased pneumonia frequency. (15) HLD (hyperlipidemia) Current Visit: No Status: Chronic Code(s): E78.5 - HYPERLIPIDEMIA, UNSPECIFIED SNOMED Code(s): 66138194 Comment: - Continue lipitor. (16) Hypertension Current Visit: No Status: Chronic Code(s): I10 - ESSENTIAL (PRIMARY) HYPERTENSION SNOMED Code(s): 07059205 Comment: - Well controlled, continue metoprolol, diltiazem. (17) Hyponatremia Current Visit: No Status: Chronic Priority: High Code(s): E87.1 - HYPO- OSMOLALITY AND HYPONATREMIA SNOMED Code(s): 71061419 Comment: - on salt tabs. of note is on SNRI duloxetine (along with quetiapine). Lung nodule and hx of lung cancer. (18) Hypothyroidism Current Visit: No Status: Chronic Code(s): E03.9 - HYPOTHYROIDISM, UNSPECIFIED SNOMED Code(s): 60558272 Comment: - Continue synthroid 175 mcg daily Status and Disposition: medicine inpatient. high utilizer.
[2017-09-11] MEDS ORDERED: Valproic Acid IV(*) 500 MG in NS 0.9% 100 ML* 100 ML IVPB ONE (14:45)
[2017-09-11] MEDS: Atorvastatin* 40 MG TAB PO SCH (18:02)
[2017-09-11] MEDS: Mometasone 220 MCG MDI INH SCH (19:32)
[2017-09-11] MEDS: Albuterol 2.5 MG/3 ML NEB.SOL* (0.083%) INH PRN (20:50)
[2017-09-11] MEDS: Levofloxacin 750 MG IVPREMIX(* 750 MG/150 ML BAG IVPB SCH (20:55)
[2017-09-11] MEDS: QUEtiapine TAB* 100 MG PO SCH (20:57)
[2017-09-11] MEDS ORDERED: Valproic Acid IV(*) 100 MG/ML 5 ML VIAL (500 MG) IVPB SCH (23:00)
[2017-09-11] MEDS: Valproic Acid IV(*) 250 MG in NS 0.9% 100 ML* 100 ML IVPB SCH (23:13)
[2017-09-12] MEDS: Acetaminophen TAB* 325 MG PO PRN ×3 (02:33→20:53)
[2017-09-12] MEDS: Valproic Acid IV(*) 250 MG in NS 0.9% 100 ML* 100 ML IVPB SCH ×3 (06:46→22:42)
[2017-09-12] MEDS: Levothyroxine TAB* 175 MCG TAB PO SCH (06:46)
[2017-09-12] MEDS: Metoprolol Succinate XL TAB* 50 MG PO SCH (09:04)
[2017-09-12] MEDS: predniSONE TAB* 20 MG PO SCH (09:04)
[2017-09-12] MEDS: Diltiazem CD CAP* 120 MG PO SCH (09:04)
[2017-09-12] MEDS: Clopidogrel TAB* 75 MG PO SCH (09:05)
[2017-09-12] MEDS: Lisinopril TAB* 5 MG PO SCH (09:05)
[2017-09-12] MEDS: Sodium Chloride TAB* 1 GM PO SCH (09:05)
[2017-09-12] MEDS: DULoxetine DR CAP* 60 MG CAP.DR PO SCH (09:05)
[2017-09-12] MEDS: Isosorbide Mononitrate ER TAB* 60 MG PO SCH (09:05)
[2017-09-12] MEDS: CMCS: Pantoprazole TAB (NF) 40 MG TAB PO SCH ×2 (09:05→20:51)
[2017-09-12] MEDS: Apixaban* 5 MG TAB PO SCH ×2 (09:05→20:51)
[2017-09-12] MEDS: Gabapentin CAP(*) 300 MG PO PRN (09:05)
[2017-09-12] MEDS: amLODIPine TAB* 5 MG PO SCH (09:05)
[2017-09-12] MEDS: Docusate CAP* 100 MG PO SCH ×2 (09:32→20:51)
[2017-09-12] MEDS ORDERED: Magnesium Sulfate IV* 3 GM in NS 0.9% 100 ML* 100 ML IVPB ONE (14:44)
--- NOTE | 2017-09-12 14:51 | PN ---
Subjective Date of Service: 09/12/17 Interval History: patient reports she is feeling "much better today" reporting her NELSON feels better. She reports her cough is also improving. She denies SOB or chest pain. Reports some green/yellow sputum. No fever or chills. Reports good appetite. She feels discouraged about being back in the hospital. She states she does feel like she can go home and be successful and is very anxious about being placed in long-term. She has been ambulating independently. Objective Active Medications: Acetaminophen (Tylenol Tab*) 650 mg PO Q6H PRN PRN Reason: FEVER/PAIN Last Admin: 09/12/17 09:04 Dose: 650 mg Albuterol (Ventolin 2.5 Mg/3 Ml Neb.Tracey*) 2.5 mg INH Q4H PRN PRN Reason: SOB/WHEEZING Last Admin: 09/11/17 20:50 Dose: 2.5 mg Albuterol (Ventolin Hfa Inhaler*) 2 puff INH Q4H PRN PRN Reason: SOB/WHEEZING Last Admin: 09/11/17 19:32 Dose: 2 puff Amlodipine Besylate (Norvasc Tab*) 5 mg PO DAILY [facility] Last Admin: 09/12/17 09:05 Dose: 5 mg Apixaban (Eliquis*) 5 mg PO BID [facility] Last Admin: 09/12/17 09:05 Dose: 5 mg Atorvastatin Calcium (Lipitor*) 40 mg PO 1700 [facility] Last Admin: 09/11/17 18:02 Dose: 40 mg Clopidogrel Bisulfate (Plavix Tab*) 75 mg PO DAILY [facility] Last Admin: 09/12/17 09:05 Dose: 75 mg Device (Nicotine Mouth Piece*) 1 each INH .USE WITH NICOTROL PRN PRN Reason: CRAVING Diltiazem HCl (Cardizem Cd Cap*) 120 mg PO DAILY [facility] Last Admin: 09/12/17 09:04 Dose: 120 mg Docusate Sodium (Colace Cap*) 200 mg PO BID [facility] Last Admin: 09/12/17 09:32 Dose: Not Given Duloxetine HCl (Cymbalta Cap*) 60 mg PO DAILY [facility] Last Admin: 09/12/17 09:05 Dose: 60 mg Gabapentin (Neurontin Cap(*)) 300 mg PO TID PRN PRN Reason: PAIN Last Admin: 09/12/17 09:05 Dose: 300 mg Levofloxacin/Dextrose (Levaquin 750 Mg Ivpremix(*)) 750 mg in 150 mls @ 100 mls /hr IVPB Q24H [facility] Last Admin: 09/11/17 20:55 Dose: 100 mls/hr Valproic Acid 250 mg/ Sodium (Chloride) 102.5 mls @ 205 mls/hr IVPB Q8H [facility] Last Admin: 09/12/17 06:46 Dose: 205 mls/hr Magnesium Sulfate 3 gm/ Sodium (Chloride) 106 mls @ 53 mls/hr IVPB ONCE ONE Stop: 09/12/17 16:43 Ipratropium [place] (Atrovent 0.5 Mg Neb.Tracey*) 0.5 mg INH QID PRN PRN Reason: SOB/WHEEZING Last Admin: 09/11/17 23:39 Dose: 0.5 mg Isosorbide Mononitrate (Imdur Er Tab*) 60 mg PO DAILY [facility] Last Admin: 09/12/17 09:05 Dose: 60 mg Levothyroxine Sodium (Synthroid Tab*) 175 mcg PO DAILY@0600 [facility] Last Admin: 09/12/17 06:46 Dose: 175 mcg Lisinopril (Prinivil Tab*) 5 mg PO DAILY [facility] Last Admin: 09/12/17 09:05 Dose: 5 mg Melatonin (Melatonin (Nf)) 3 mg PO BEDTIME PRN; Protocol PRN Reason: Sleep Last Admin: 09/10/17 21:17 Dose: 3 mg Metoprolol Succinate (Toprol Xl Tab*) 25 mg PO DAILY [facility] Last Admin: 09/12/17 09:04 Dose: 25 mg Mometasone Furoate (Asmanex 220 Mcg Mdi *) 2 puff INH QPM [facility] Last Admin: 09/11/17 19:32 Dose: 2 puff Nicotine (Nicotine Inhaler*) 10 mg INH Q2H PRN PRN Reason: CRAVING Ondansetron HCl (Zofran Inj*) 4 mg IV Q6H PRN PRN Reason: NAUSEA Pantoprazole Sodium (Protonix Tab (Nf)) 40 mg PO BID [facility] Last Admin: 09/12/17 09:05 Dose: 40 mg Prednisone (Deltasone Tab*) 40 mg PO DAILY [facility] Last Admin: 09/12/17 09:04 Dose: 40 mg Quetiapine Fumarate (Seroquel Tab*) 100 mg PO BEDTIME [facility] Last Admin: 09/11/17 20:57 Dose: 100 mg Sodium Chloride (Sodium Chloride Tab*) 1 gm PO DAILY [facility] Last Admin: 09/12/17 09:05 Dose: 1 gm Vital Signs - 8 hr 09/12/17 09/12/17 09/12/17 08:00 09:05 11:36 Temperature Pulse Rate 86 Respiratory 16 16 16 Rate Blood Pressure 128/82 (mmHg) O2 Sat by Pulse 96 Oximetry 09/12/17 12:09 Temperature 98.2 F Pulse Rate 80 Respiratory 16 Rate Blood Pressure 120/67 (mmHg) O2 Sat by Pulse 97 Oximetry Oxygen Devices in Use Now: None Appearance: 66 yo female A+O x3 in NAD Eyes: No Scleral Icterus, PERRLA Ears/Nose/Mouth/Throat: Mucous Membranes Moist Respiratory: Symmetrical Chest Expansion and Respiratory Effort, - - coarse rhonchi in RLL, mildy dimished throughout Cardiovascular: NL Sounds; No Murmurs; No JVD, RRR, No Edema Abdominal: NL Sounds; No Tenderness; No Distention Extremities: No Edema, No Clubbing, Cyanosis Skin: No Rash or Ulcers, No Nodules or Sclerosis Neurological: Alert and Oriented x 3, NL Sensation, NL Gait, NL Muscle Strength and Tone Lines/Tubes/Other Access: Clean, Dry and Intact Peripheral IV Nutrition: Taking PO's Result Diagrams: 09/10/17 06:02 09/10/17 06:02 Microbiology and Other Data: Microbiology 09/11/17 10:20 Sputum Gram Stain - Final 09/09/17 19:08 Urine Urine Culture - Final 09/09/17 19:57 Blood Venous Aerobic Blood Culture - Preliminary No Growth Day 1 09/09/17 19:57 Blood Venous Anaerobic Blood Culture - Preliminary No Growth Day 1 09/09/17 19:50 Blood Venous Aerobic Blood Culture - Preliminary No Growth Day 1 09/09/17 19:50 Blood Venous Anaerobic Blood Culture - Preliminary No Growth Day 1 09/10/17 08:00 Nasal Influenza Types A,B Antigen ([place]) - Final Specimen received for Influenza A/B Molecular testing 09/10/17 04:55 Urine Legionella Urinary Antigen - Final Negative Legionella Antigen 09/10/17 04:55 Urine Streptococcus pneumoniae Ag Screen - Final Negative S. pneumo Antigen 09/10/17 03:00 Nasal Influenza Types A,B Antigen ([place]) - Final Specimen received for Influenza A/B Molecular testing Assess/Plan/Problems-Billing Assessment: 66 yo F high-utlizer h/o lung ca s/p lobectomy, CAD/NSTEMI 2017, CVA, COPD with continued tobacco abuse, GIB on NSAIDs, hx PE, anxiety, daily headaches since May 2017 (likely medication overuse, fiorcet then tramadol) presents with sepsis secondary to pneumonia and chest pressure. - Patient Problems (1) Sepsis Comment: presented with fever, tachycardia, leukocytosis thought to be 2nd to RLL PNA - sepsis now resolved Continue levaquin f/u Cultures. BCx NGTD Sputum GS with both gram positive and gram negative. Urine Antigens are negative. Procalcitonin negative ... possibly viral pna? concerned with presentation with sepsis, co-morbidities with COPD and mild exacerbation. Improving on abx and plan to continue abx course. (2) Pneumonia Comment: - plan as above. continue levaquin. Recently 08/06 was treated with zosyn then augmentin (total 10 day course). (3) Chronic headache Comment: Pt reports improvement today. Suspected medication overuse headache. Has been going on since she had flu in May 2017. Was misusing fiorcet in May. was then getting tramadol q6 at [facility] until 09/04 and then [place] while hospitalized 09/04-09/07. describes no photophobia, photophonia or other triggers. Lasts all day each day. Seems like daily chronic tension like headache 2/2 medication overuse vs chronic tension headache(for which TCA like amitripline may be beneficial but contraindicated in the setting of CAD). Tramadol was D/C 09/11 and she was started on valproic acid 15mg/kg followed by 5mg/kg q8 hours for 4 doses. Neurology consult pending NSAIDS contraindicated given her Hx GIB on ibuprofen (was taking 600-800mg TID at time). Mg checked today and was 1.5 - give IV replacement now and start on oral magnesium in which she should be D/C'd home with as she is chronically low and may help with HAs. (4) COPD exacerbation Comment: acute exacerbation, inhalers. now prednisone with taper. (5) History of lung cancer Comment: - Needs f/u ct in 1 month, previous ct in Apr with small nodule. Follows with Dr. Colud. Unable to go to appointments due to being hospitalized multiple times. (6) Afib Comment: Continue metoprolol and diltiazem and eliquis (7) Anemia Comment: - unclear etiology. Hx of GI bleed in May where she underwent an upper endoscopy and was found to have gastritis and erosive esophagitis in the setting of NSAID use. She was then seen by Dr. Urena on 09/06/17 (on previous admission) and had a consult for anemia - at that time (and currently) pt denies any black stools or NSAID use - recommendation from GI was for a colonoscopy as outpt (pt has refused) and hematology work-up. Pt does follow with Dr. Cloud for hx of lung ca and current lung nodule that is being followed. - Obtain stool for occult blood. Recheck HH in am. (8) Anxiety Comment: Currently on cymbalta and seroquel Hx of benzo abuse problems. (9) Chest pain Comment: Known CAD in the LAD with borerline lesion. 2 close hospital stays with chest pain now 6 negative troponins. Chest pain lasted 1 minute. Cardiac cath in 04/[address] Rogers (please see note for full details) recommending medical management at that time and getting aspirin desensitization and if the pt continued to have progressive symptoms a consideration would be for trying to open and stent the LAD. Prior stress test did not show any nuclear ischemia to anterior apical region. At this point she has had no further CP. Continue current meds, no stress test required at this time. (10) History of pulmonary embolism Comment: c/w eliquis no PE on CTA chest (11) H/O: CVA (cerebrovascular accident) Comment: Significant residual left sided weakness. Continue atorvastatin, eliquis and plavix. CT Head 09/04 did have some concern for white-mackey matter loss of differentiation changes that may have been reflective of acute right MCA territory CVA. Neurology consulted as above. (12) Anxiety Comment: - Continue seroquel and duloxetine - History of benzodiazepine abuse. Would benefit from outpatient counseling. (13) CAD (coronary artery disease) Comment: - troponins here negative and previous admission as well. no ischemic EKG changes. Known CAD with known lesion of LAD and total occlusion of posterior decending artery. Not stentable. Continue beta luis f, plavix, statin, and cardizem. Patient should still be desensitized to aspirin when able for maximal secondary prevention of SC. (14) COPD (chronic obstructive pulmonary disease) Comment: - Mild exacerbation due to pneumonia. Continue inhalers and taper steroids. (15) Depression Comment: - Continue duloxetine and seroquel. (16) HLD (hyperlipidemia) Comment: - Continue lipitor. (17) Hypertension Comment: - Well controlled, continue metoprolol, diltiazem. (18) Hyponatremia Comment: - on salt tabs. of note is on SNRI duloxetine (along with quetiapine). Lung nodule and hx of lung cancer. (19) Hypothyroidism Comment: - Continue synthroid 175 mcg daily (20) Vitamin D deficiency Comment: - continue D3 supplementation. (21) DVT prophylaxis Comment: gauri (22) Full code status Comment: Status and Disposition: medicine inpatient. high utilizer. In general she does not seem to have the capacity to handle her on medications and would benefit from [facility] care nursing.
[2017-09-12] MEDS: Atorvastatin* 40 MG TAB PO SCH (16:10)
[2017-09-12] MEDS: Albuterol 2.5 MG/3 ML NEB.SOL* (0.083%) INH PRN (19:28)
[2017-09-12] MEDS: Mometasone 220 MCG MDI INH SCH (19:28)
[2017-09-12] MEDS: Levofloxacin 750 MG IVPREMIX(* 750 MG/150 ML BAG IVPB SCH (20:44)
[2017-09-12] MEDS: QUEtiapine TAB* 100 MG PO SCH (20:51)
--- NOTE | 2017-09-13 00:03 | CONS ---
CONSULTATION NOTE: DATE OF CONSULT: 09/10/17 REASON FOR CONSULT: Stroke and changes on CT scan as well as headache. REQUESTING PHYSICIAN: Dr. Munguia. HISTORY OF PRESENT ILLNESS: Jessi Glover is a 66-year-old woman with a history of stroke for which she was seen by Dr. Mccauley in April 2017 with left upper extremity weakness who since that time has had frequent admissions including but not limited to issues with GI bleed, flu, atrial fibrillation, overuse of Fioricet, CAD. Her past medical history is complex and includes lung cancer, status post left upper lobe resection, coronary artery disease diagnosed in April 2017 on Plavix, GI bleed secondary to NSAIDs, atrial fibrillation, pulmonary embolism on Eliquis, history of opioid and benzo abuse with delirium secondary to withdrawal in 2012, Fioricet overuse in May 2017, daily use of Tylenol with tramadol for daily headache. In April, she was admitted with left upper extremity weakness and numbness and eyelid drooping. She went on to have an MRI of the brain which showed a right frontoparietal ischemic stroke which was cortical. This film was reviewed directly. She also had a MRI of the cervical spine at that time which did show osteoarthritic and disk changes with some mild central canal stenosis at C5-C6. Please see report for details. Dr. Mccauley felt her stroke was most likely cardio-embolic. She went on to be diagnosed with atrial fibrillation and treated with Eliquis. She indicates that she worked in [facility] for 2 weeks and is improved. She has exercises to continue and she continues to improve. There has been no new focal weakness or numbness. In one of her recent admissions, there was a CT that was read as showing possible new change in the right insula, questioning acute MCA infarct. In direct review of the scan and comparing to previous, I do believe this may be the previous stroke noted. There are no clear new clinical symptoms reported, to go with these findings. She also was admitted for the flu and since she had the flu in approximately May, she indicates that she has had a bilateral headache which goes from her forehead over her head to her occiput, it is constant. There is no nausea, vomiting, photophobia, or phonophobia. She has had migraines in the past, but they went away with menopause and she has had only one since. This headache is different than her migraine. She found that in the past, Fioricet helped; however, she unfortunately took too much. Wilson helped and tramadol has helped. She indicates she was home for 2 days before this admission and was taking Tylenol every day and rare tramadol. She is currently on lisinopril, metoprolol, amlodipine, and diltiazem. She also takes gabapentin in the setting of chronic pain and back pain, and Depakote was started last night IV with no clear improvement to date. She is written for Tylenol and her tramadol has been held. In looking at her records, she had been on topiramate in the past, but it is unclear why she was on this medication. She is unable to tell me what makes her headaches worse. There is no difference with straining, position. What makes them better, are the agents listed above. She was admitted this admission for left lower lobe pneumonia, tachycardia, and leukocytosis with chief complaint of malaise and chest pain with shortness of breath and sweats. 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 She has had recurrent hyponatremia. There is a history of opioid and benzo abuse, history of back pain, hiatal hernia. She has a history of scoliosis and lordosis. PAST SURGICAL HISTORY: Previous surgeries include surgery for her lung cancer, tonsillectomy, hysterectomy. CURRENT MEDICATIONS: Include: 1. Acetaminophen 650 mg p.o. q.6 hours p.r.n. fever or pain. 2. Albuterol 2.5 mg inhaled q.4 hours p.r.n. shortness of breath and wheezing. 3. Albuterol 2 puffs inhaled q.4 hours p.r.n. shortness of breath or wheezing. 4. Amlodipine 5 mg p.o. daily. 5. Eliquis 5 mg p.o. b.i.d. 6. Lipitor 40 mg q.p.m. 7. Plavix 75 mg p.o. daily. 8. Diltiazem 120 mg p.o. daily. 9. Nicotine device. 10. Colace 200 mg p.o. b.i.d. 11. Cymbalta 60 mg p.o. daily. 12. Gabapentin 300 mg p.o. t.i.d. p.r.n. pain. 13. Atrovent 0.5 mg inhaled 4 times a day p.r.n. shortness of breath and wheezing. 14. Isosorbide 60 mg p.o. daily. 15. Levofloxacin 750 mg IV q.24 hours. 16. Levothyroxine 175 mcg p.o. daily. 17. Lisinopril 5 mg p.o. daily. 18. Melatonin 3 mg p.o. q.p.m. 19. Metoprolol 25 mg p.o. daily. 20. Asmanex 2 puffs inhaled q.p.m. 21. Nicotine 10 mg inhaled q.2 hours p.r.n. craving. 22. Ondansetron 4 mg IV q.6 hours p.r.n. nausea. 23. Protonix 40 mg p.o. b.i.d. 24. Prednisone 40 mg p.o. daily. 25. Seroquel 100 mg p.o. q.p.m. 26. Sodium chloride 1 g p.o. daily. 27. Valproate 250 mg IV q.8 hours. ALLERGIES: Includes ASPIRIN which causes anaphylaxis, LATEX causes a rash. FAMILY HISTORY: Includes mother with ulcerative colitis, dying at age 73. Father myocardial infarction, dying at age 55. One of her sons committed suicide and another son secondary to alcohol, and her daughter is alive at 34 and healthy. She tells me her social insurance analyst dropped her when her second son . She is not involved in psychiatric care or social work care at this time. SOCIAL HISTORY: Ms. Glover is a smoker. She does not drink alcohol. PHYSICAL EXAM: On examination, most recent temperature was 98.2 degrees Fahrenheit, blood pressure 120/67, pulse was 80, respiratory rate 16, saturation was 97%. She had a regular cardiac rhythm. Lungs were clear to auscultation. She was awake, alert, articulate. She had normal language function, adequate fund of knowledge. She appeared relaxed and comfortable. She was able to smile and laugh during today's visit and participate in the exams. She had a regular cardiac rhythm. Her lungs are clear to auscultation. There was no peripheral edema. Her peripheral pulses were intact. There was no petechiae. Her pupils were quite large at 4 to 5 mm with slight reaction to light. She denied use of any patches or any substance being put into her eyes. Her fundi were flat. She had full extraocular movements with no nystagmus. Full barron to confrontation. Her facial expression, sensation and hearing were equal. Palate was upgoing. Tongue was midline. Sternocleidomastoid and trapezius were 5/5 in strength. There was normal bulk and tone in the right upper extremity with no pronator drift and full strength in the right upper extremity and bilateral lower extremities. In the left upper extremity, she had a pronator drift on the left. She had slight give to the left deltoid. Biceps was strong, left triceps was weak at 5-/5. She had 3/5 strength with left wrist dorsiflexion. Left ulnar intrinsic muscles were hard for her to move even when flattening the hand on the bed. Her night manager on the left was 3/5. She had no clear asymmetry to pinprick, cold or light touch. Vibration sensation was decreased at the toes by about 20 seconds, and at the ankles by 10 seconds. Proprioception was intact. Reflexes were 2+ and symmetric in the upper and lower extremities. Toes were flexor response. She had normal coordination with [id number] and [id number] movements. DIAGNOSTIC STUDIES/LAB DATA: Data includes the chart which has extensive admissions and data regarding her care. Direct review was made of her MRI of the brain and MRI of the cervical spine from April 2017, as well as her more recent CT from 09/04/17. Her most recent labs include sodium of 133. Her potassium is 3.7, chloride 102, CO2 is 21. She had normal BUN and creatinine ratio. Her magnesium was low at 1.5. So far, her blood cultures have shown no growth. Her last CBC was on September 10, and showed a white count of 13.8. Her hemoglobin and hematocrit were low at 8.8 and 27 and platelets were 421,000. IMPRESSION: Jessi Glover is a 66-year-old woman with history of stroke with residual left upper extremity weakness from April 2017, felt to be cardioembolic in the setting of atrial fibrillation, currently on Eliquis as well as Plavix in the setting of coronary artery disease also diagnosed in April 2017. She is now admitted for pneumonia, malaise, chest pain and neurology consult asked for review of recent CT results, workup for stroke and for headache. In regards to her previous stroke, she is treated with Eliquis for a cardioembolic source. She had a CTA of the brain which did not show any significant stenosis of the carotid arteries and had some limitation due to movement artifact when viewing intracranial vessels. Given her question of new findings on CT, her history of lung cancer, her ongoing daily headaches, I have suggested getting MRI of the brain with contrast for further evaluation. Of note, she has very dilated pupils of unclear etiology. Etiology and contribution to current clinical state is unclear. Differential diagnosis for headaches include new onset daily headaches in the setting of the flu. On today's visit, she looks relatively comfortable but her headache severity can vary. She has been using quite a bit of [id number] medication with Tylenol and has had difficulty with using too much Fioricet in May, use of Wilson and overuse of benzos and opioids in the past. We talked about the concept/ differential diagnosis of rebound headache and the importance of stopping all abortive medications. She is currently getting Tylenol; however, this may need to be stopped. She is receiving a trial of valproate. She is on gabapentin as needed and this could be used regularly and increased in the prophylaxis of headaches. Physical therapy with massage, biofeedback, and work on stress reduction strategies may be helpful. Counseling may be helpful in the setting of chronic pain and loss. We reviewed the use and choice of abortive medications, which are limited for her due to potential rebound headache, previous overuse of medications, as well as her other comorbid conditions including stroke and coronary artery disease. She is not a candidate for triptans or DHE. She had a GI bleed on NSAIDs and she has had difficulty with taking too much addictive medication in the past and therefore, all of these needs to be avoided. In regards to prophylactic medications, she is on multiple cardiac medications that can be helpful in prophylaxis of headaches. She is trying Depakote but so far, there is no improvement and if there is still no improvement tomorrow, will have to consider stopping this. She is on gabapentin as needed and this may want to be changed to a regular dosing and then slowly increase. Topiramate may be another option. She was on Lyrica in the past for unclear reasons, this is sometimes used for headaches. In regards to I tricyclic antidepressants, I would avoid this given her cardiac history and the potential for arrhythmias. Sometimes we will use steroids to try to break headaches; however, she is admitted with the possibility of infection and therefore, this may not be the best option and it would have to be cleared with hospitalist, and she would need to be monitored for worsening of anxiety or depression. We talked about the potential for muscle relaxants; however, tizanidine has significant interaction with her current antibiotic, and cyclobenzaprine has potential side effects of stroke and myocardial infarction and accordingly was not used. TIME SPENT: Over an hour and a half was spent in patient care and coordination of care, and education was provided to the patient regarding all of the above. This is a very complex case and may require more education and counseling. Again, it may be beneficial for her to get involved with regular counseling in regards to stress that can happen in the setting of chronic disease. She has had multiple admissions to hospital, significant medical diagnoses as well as personal loss. As much supportive care, and provision of a supportive environment as possible would be helpful. [id number]/[facility] #: [id number] NICOLE
[2017-09-13] MEDS: Levothyroxine TAB* 175 MCG TAB PO SCH (05:59)
[2017-09-13 06:21] LABS: ABS Basophils 0 10^3/ul (0-0.2); ABS Eosinophils 0 10^3/ul (0-0.6); ABS Lymphocytes 2.2 10^3/ul (1.0-4.8); ABS Monocytes 1.4 10^3/ul (0-0.8); ABS Neutrophils 7.4 10^3/ul (1.5-7.7); ABS Nucleated RBC 0 10^3/ul; Eosinophil % 0.3 % (0-6); Hematocrit 26 % (35-47); Hemoglobin 8.4 g/dl (12.0-16.0); Lymphocyte % 19.6 % (25-47); Mean Corpuscular HGB Conc 33 g/dl (31-36); Mean Corpuscular Hemoglobin 27 pg (27-31); Mean Corpuscular Volume 83 fL (80-97); Mean Platelet Volume 7.3 um3 (7.4-10.4); Nucleated Red Blood Cells % 0; Platelet Count 415 10^3/ul (150-450); Red Blood Count 3.09 10^6/ul (4.0-5.4); Red Cell Distribution Width 19 % (10.5-15)
[2017-09-13 06:42] LABS: EGFR Non-African American 82.6 (>60)
[2017-09-13] MEDS: amLODIPine TAB* 5 MG PO SCH (08:59)
[2017-09-13] MEDS: DULoxetine DR CAP* 60 MG CAP.DR PO SCH (09:00)
[2017-09-13] MEDS: Sodium Chloride TAB* 1 GM PO SCH (09:00)
[2017-09-13] MEDS: CMCS: Pantoprazole TAB (NF) 40 MG TAB PO SCH ×2 (09:00→20:56)
[2017-09-13] MEDS: Diltiazem CD CAP* 120 MG PO SCH (09:00)
[2017-09-13] MEDS: predniSONE TAB* 20 MG PO SCH (09:01)
[2017-09-13] MEDS: Docusate CAP* 100 MG PO SCH ×3 (09:02→20:51)
[2017-09-13] MEDS: Lisinopril TAB* 5 MG PO SCH (09:02)
[2017-09-13] MEDS: Metoprolol Succinate XL TAB* 50 MG PO SCH (09:02)
[2017-09-13] MEDS: Apixaban* 5 MG TAB PO SCH ×2 (09:02→20:56)
[2017-09-13] MEDS: Clopidogrel TAB* 75 MG PO SCH (09:02)
[2017-09-13] MEDS: Isosorbide Mononitrate ER TAB* 60 MG PO SCH (09:03)
[2017-09-13] MEDS: Acetaminophen TAB* 325 MG PO PRN ×2 (09:03→20:57)
[2017-09-13] MEDS: Magnesium Oxide TAB* 400 MG PO SCH (09:04)
[2017-09-13] MEDS: Cholecalciferol TAB* 1000 UNITS PO SCH (09:06)
[2017-09-13] MEDS: Gabapentin CAP(*) 300 MG PO PRN (12:55)
[2017-09-13] MEDS ORDERED: Ibuprofen TAB* 400 MG PO ONE (17:33)
--- NOTE | 2017-09-13 17:42 | PN ---
Subjective Date of Service: 09/13/17 Interval History: Patient seen and examined. Tearful, states she has a headache, asking for pain meds. Could not get through the MRI 2/2 claustrophobia. Denies SOB, no chest pain, mild cough. No fevers or chills. Objective Active Medications: Acetaminophen (Tylenol Tab*) 650 mg PO Q6H PRN PRN Reason: FEVER/PAIN Last Admin: 09/13/17 09:03 Dose: 650 mg Albuterol (Ventolin 2.5 Mg/3 Ml Neb.Tracey*) 2.5 mg INH Q4H PRN PRN Reason: SOB/WHEEZING Last Admin: 09/12/17 19:28 Dose: 2.5 mg Albuterol (Ventolin Hfa Inhaler*) 2 puff INH Q4H PRN PRN Reason: SOB/WHEEZING Last Admin: 09/11/17 19:32 Dose: 2 puff Amlodipine Besylate (Norvasc Tab*) 5 mg PO DAILY [facility] Last Admin: 09/13/17 08:59 Dose: 5 mg Apixaban (Eliquis*) 5 mg PO BID [facility] Last Admin: 09/13/17 09:02 Dose: 5 mg Atorvastatin Calcium (Lipitor*) 40 mg PO 1700 [facility] Last Admin: 09/12/17 16:10 Dose: 40 mg Cholecalciferol (Vitamin D Tab*) 2,000 units PO DAILY [facility] Last Admin: 09/13/17 09:06 Dose: 2,000 units Clopidogrel Bisulfate (Plavix Tab*) 75 mg PO DAILY [facility] Last Admin: 09/13/17 09:02 Dose: 75 mg Device (Nicotine Mouth Piece*) 1 each INH .USE WITH NICOTROL PRN PRN Reason: CRAVING Diltiazem HCl (Cardizem Cd Cap*) 120 mg PO DAILY [facility] Last Admin: 09/13/17 09:00 Dose: 120 mg Docusate Sodium (Colace Cap*) 200 mg PO BID [facility] Last Admin: 09/13/17 09:06 Dose: Not Given Duloxetine HCl (Cymbalta Cap*) 60 mg PO DAILY [facility] Last Admin: 09/13/17 09:00 Dose: 60 mg Gabapentin (Neurontin Cap(*)) 300 mg PO TID PRN PRN Reason: PAIN Last Admin: 09/13/17 12:55 Dose: 300 mg Ibuprofen (Motrin Tab*) 400 mg PO ONCE ONE Stop: 09/13/17 17:34 Ipratropium Goltry (Atrovent 0.5 Mg Neb.Tracey*) 0.5 mg INH QID PRN PRN Reason: SOB/WHEEZING Last Admin: 09/11/17 23:39 Dose: 0.5 mg Isosorbide Mononitrate (Imdur Er Tab*) 60 mg PO DAILY [facility] Last Admin: 09/13/17 09:03 Dose: 60 mg Levofloxacin (Levaquin Tab*) 750 mg PO BEDTIME [facility] Levothyroxine Sodium (Synthroid Tab*) 175 mcg PO DAILY@0600 [facility] Last Admin: 09/13/17 05:59 Dose: 175 mcg Lisinopril (Prinivil Tab*) 5 mg PO DAILY [facility] Last Admin: 09/13/17 09:02 Dose: 5 mg Lorazepam (Ativan Inj*) 1 mg IV PUSH ONCE ONE Stop: 09/13/17 18:01 Magnesium Oxide (Magox 400 Tab*) 800 mg PO DAILY [facility] Last Admin: 09/13/17 09:04 Dose: 800 mg Melatonin (Melatonin (Nf)) 3 mg PO BEDTIME PRN; Protocol PRN Reason: Sleep Last Admin: 09/10/17 21:17 Dose: 3 mg Metoprolol Succinate (Toprol Xl Tab*) 25 mg PO DAILY [facility] Last Admin: 09/13/17 09:02 Dose: 25 mg Mometasone Furoate (Asmanex 220 Mcg Mdi *) 2 puff INH QPM [facility] Last Admin: 09/12/17 19:28 Dose: 2 puff Nicotine (Nicotine Inhaler*) 10 mg INH Q2H PRN PRN Reason: CRAVING Ondansetron HCl (Zofran Inj*) 4 mg IV Q6H PRN PRN Reason: NAUSEA Pantoprazole Sodium (Protonix Tab (Nf)) 40 mg PO BID [facility] Last Admin: 09/13/17 09:00 Dose: 40 mg Prednisone (Deltasone Tab*) 40 mg PO DAILY [facility] Last Admin: 09/13/17 09:01 Dose: 40 mg Quetiapine Fumarate (Seroquel Tab*) 100 mg PO BEDTIME [facility] Last Admin: 09/12/17 20:51 Dose: 100 mg Sodium Chloride (Sodium Chloride Tab*) 1 gm PO DAILY [facility] Last Admin: 09/13/17 09:00 Dose: 1 gm Vital Signs - 8 hr 09/13/17 09/13/17 09/13/17 11:33 12:55 15:43 Temperature 98.3 F 97.3 F Pulse Rate 81 79 Respiratory 17 20 16 Rate Blood Pressure 120/63 128/66 (mmHg) O2 Sat by Pulse 97 97 Oximetry Oxygen Devices in Use Now: None Appearance: Alert, mild distress Ears/Nose/Mouth/Throat: NL Teeth, Lips, Gums, Mucous Membranes Moist Neck: NL Appearance and Movements; NL JVP, Trachea Midline Respiratory: Symmetrical Chest Expansion and Respiratory Effort, Clear to Auscultation Cardiovascular: NL Sounds; No Murmurs; No JVD, RRR, No Edema Extremities: No Edema, No Clubbing, Cyanosis Neurological: Alert and Oriented x 3, NL Sensation, NL Gait Nutrition: Taking PO's Result Diagrams: 09/13/17 05:58 09/13/17 05:58 Microbiology and Other Data: Microbiology 09/11/17 10:20 Sputum Gram Stain - Final 09/09/17 19:08 Urine Urine Culture - Final 09/09/17 19:57 Blood Venous Aerobic Blood Culture - Preliminary No Growth Day 1 09/09/17 19:57 Blood Venous Anaerobic Blood Culture - Preliminary No Growth Day 1 09/09/17 19:50 Blood Venous Aerobic Blood Culture - Preliminary No Growth Day 1 09/09/17 19:50 Blood Venous Anaerobic Blood Culture - Preliminary No Growth Day 1 09/10/17 08:00 Nasal Influenza Types A,B Antigen ([place]) - Final Specimen received for Influenza A/B Molecular testing 09/10/17 04:55 Urine Legionella Urinary Antigen - Final Negative Legionella Antigen 09/10/17 04:55 Urine Streptococcus pneumoniae Ag Screen - Final Negative S. pneumo Antigen 09/10/17 03:00 Nasal Influenza Types A,B Antigen ([place]) - Final Specimen received for Influenza A/B Molecular testing Diagnostic Imaging: Patient Name: ELIUD UGALDE Medical Record#: [id number] Ordering Physician: Master Durant MD Acct.#: [id number] : 1950 Age: 66 Sex: F Location: [address] [place] [address] - MEDICAL Exam Date: 09/10/17850 ADM Status: ADM IN Order Information: CTA CHEST Accession Number: [id number] CPT: 39534 INDICATION: Lung cancer. Shortness of breath and tachycardia. Post LEFT lower lobectomy. COMPARISON: September 09, 2017 chest radiograph and May 02, 2017 CT. TECHNIQUE: Multidetector CT images were obtained from the lung apices to the upper abdomen with 49 mL Omnipaque 350 IV contrast. Pulmonary angiogram protocol. Multiplanar reformation including with maximum intensity projection. REPORT: Advanced emphysema. Postsurgical change of LEFT lower lobectomy. Mild alveolar consolidation at the superior segment of the RIGHT lower lobe unchanged small volume of LEFT pleural fluid nonspecific in setting of previous partial LEFT pneumonectomy. 1.1 cm short axis AP window lymph node without change. Negative for cardiomegaly or pericardial effusion. Normal diameter thoracic aorta with mild atherosclerotic plaque. The RIGHT and residual pulmonary arteries to the segmental and subsegmental levels are without filling defects to indicate pulmonary embolism. Negative for suspicious osseous lesions. IMPRESSION: 1. Negative for pulmonary embolism. 2. Mild alveolar consolidation at the superior segment of the RIGHT lower lobe new compared with the prior exam suspicious for an inflammatory infiltrate. 3. Advanced emphysema. 4. Postsurgical change of partial LEFT pneumonectomy. 1.1 cm short axis AP window lymph node without change. <Electronically signed by Jonathan Chan MD in [place]> 09/10/17 1419 Dictated By: Jonathan Chan MD Dictated Date/Time: 09/10/17 1419 Transcribed Date/Time: 09/10/17 1404 Copy to: CC:Timothy Melton MD; Master Durant MD; Guerrero Gtz NP Imaging - [facility] Imaging - [facility] Imaging - [facility] [address] [address] ph [phone]) ph [phone]) ph ([phone]) 1 of Assess/Plan/Problems-Billing Assessment: 66 yo F high-utlizer h/o lung ca s/p lobectomy, CAD/NSTEMI 2017, CVA, COPD with continued tobacco abuse, GIB on NSAIDs, hx PE, anxiety, daily headaches since May 2017 (likely medication overuse, fiorcet then tramadol) presents with sepsis secondary to pneumonia and chest pressure. - Patient Problems (1) Pneumonia Code(s): J18.9 - PNEUMONIA, UNSPECIFIED ORGANISM SNOMED Code(s): 083141330 Comment: - Change to levaquin PO, responding well, no SOB - Off O2 (2) Anxiety Code(s): F41.9 - ANXIETY DISORDER, UNSPECIFIED SNOMED Code(s): 15078041 Comment: - Continue cymbalta and seroquel - Hx of benzo abuse problems in the past (3) Sepsis Comment: - presented with fever, tachycardia, leukocytosis thought to be 2nd to RLL PNA - sepsis now resolved - Blood Cx NGTD - Urine Antigens are negative. - Procalcitonin negative ... possibly viral pna with exac of COPD and continued tobacco abuse (4) Afib Code(s): I48.91 - UNSPECIFIED ATRIAL FIBRILLATION SNOMED Code(s): 29885546 Comment: - Continue metoprolol and diltiazem and eliquis, HgB stable (5) CAD (coronary artery disease) Code(s): I25.10 - ATHSCL HEART DISEASE OF [place] CORONARY ARTERY W/O ANG PCTRS SNOMED Code(s): 27582251 Comment: - troponins negative - known CAD with lesion of LAD and total occlusion of posterior decending artery, not stentable. - Continue beta luis f, plavix, statin, and cardizem. Patient should still be desensitized to aspirin when able for maximal secondary prevention of IA. (6) COPD (chronic obstructive pulmonary disease) Code(s): J44.9 - CHRONIC OBSTRUCTIVE PULMONARY DISEASE, UNSPECIFIED SNOMED Code(s): 67638828 Comment: - With hx of lung CA, partial lobectomy and recurrent PNA - Inhalers, atbx and supportive care (7) Chronic headache Code(s): R51 - HEADACHE SNOMED Code(s): 786756006 Comment: - Chronic, failed many treatments in the past and abused narcotics - Will continue tylenol and gabapentin PRN - Neuro consult with Dr. Santamaria appreciated, limited options at this point given multiple comorbid conditions, MRI today with ativan if she can tolerate - Did not respond to valproic acid, already on steroids - Continue oral magnesium supplements - Will give ONE dose ibuprofen 400mg for NELSON pain 8 at present and no more than this given recent hx of GIB and anemia. Patient is on pantaprazole BID and being watched closely. - Discussed alternate measures, hot and cold packs, a little caffeine, massage and or chiropractic as an outpatient. (8) Hypertension Code(s): I10 - ESSENTIAL (PRIMARY) HYPERTENSION SNOMED Code(s): 19453310 Comment: - Well controlled, continue metoprolol, diltiazem. (9) Depression Code(s): F32.9 - MAJOR DEPRESSIVE DISORDER, SINGLE EPISODE, UNSPECIFIED SNOMED Code(s): 62332320 Comment: - Continue duloxetine and seroquel. (10) GERD (gastroesophageal reflux disease) Code(s): K21.9 - GASTRO-ESOPHAGEAL REFLUX DISEASE WITHOUT ESOPHAGITIS SNOMED Code(s): 143360512 Comment: - Continue protonix 40 BID. Recent diagnosis of gastritis - Patient was diagnosed with hiatal hernia [address] Acevedo. Patient should follow up for consideration of surgical fixation outpatient to possibly decreased pneumonia frequency chance for esophagitis/gastritis. (11) HLD (hyperlipidemia) Code(s): E78.5 - HYPERLIPIDEMIA, UNSPECIFIED SNOMED Code(s): 81910352 Comment: - Continue lipitor. Status and Disposition: MRI today, dispo planning tomorrow. Would benefit from family meeting given high utilization.
[2017-09-13] MEDS: Atorvastatin* 40 MG TAB PO SCH (18:00)
[2017-09-13] MEDS ORDERED: LORazepam INJ* 2 MG/ML 1 ML VIAL IV PUSH ONE (18:00)
[2017-09-13] MEDS ORDERED: Gadoteridol* (CONTRAST) 279.3 MG/ML 10 ML IV ONE (18:41)
--- NOTE | 2017-09-13 19:13 | RAD ---
INDICATION: Headache, history of lung cancer and stroke. COMPARISON: Comparison is made with a prior MRI of the brain from May 03, [address] of the brain from September 04, 2017. TECHNIQUE: Sagittal T1, axial T1, T2, susceptibility, FLAIR and diffusion-weighted images were obtained. In addition, axial, sagittal and coronal T1-weighted images were obtained following intravenous injection of 8 ml of ProHance contrast. FINDINGS: The ventricles, cisterns and sulci are prominent consistent with diffuse atrophy. There are focal areas of increased signal intensity on T2-weighted images present in the subcortical and periventricular white matter most consistent with moderate chronic small vessel ischemic changes. 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 There is a small old infarct in the posterior right frontal lobe. There is a small area of extra-axial enhancement along the anterior falx on the left side measuring 8 x 5 mm most consistent with a small meningioma. No other abnormal areas of enhancement are seen. No areas of restricted diffusion are present. There is no evidence for acute infarct or hemorrhage. There is mild to moderate mucosal thickening within the maxillary sinuses. There also appear to be small effusions within the mastoid air cells on both sides. IMPRESSION: 1. NO EVIDENCE FOR METASTATIC DISEASE. 2. FINDINGS CONSISTENT WITH A SMALL MENINGIOMA ALONG THE ANTERIOR FALX ON THE LEFT SIDE. 3. 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 4. FINDINGS CONSISTENT WITH ATROPHY AND MODERATE CHRONIC SMALL VESSEL ISCHEMIC CHANGES.
[2017-09-13] MEDS: Mometasone 220 MCG MDI INH SCH (19:42)
[2017-09-13] MEDS: QUEtiapine TAB* 100 MG PO SCH (20:56)
[2017-09-13] MEDS ORDERED: Levofloxacin TAB* 750 MG PO SCH (21:00)
--- NOTE | 2017-09-14 02:22 | PN ---
NEUROLOGICAL PROGRESS NOTE: DATE OF VISIT: 09/13/17 HISTORY: This is a 66-year-old woman who has had headaches for several months that she describes up to 02/07 and it is a frontal occipital squeezing headache that occasionally becomes throbbing posteriorly. She has been treating with tramadol and some hydrocodone on a daily basis and this was occurred since the flu. She has been in with a pneumonia and has been on medications including a current trial of Depakote. She has also been on p.r.n. Neurontin and Lyrica. She is wanting some of her pain medications now. MEDICATIONS: Include: 1. Albuterol 2.5 mg 2 puffs p.r.n. 2. Norvasc 5 mg daily. 3. Eliquis 5 mg b.i.d. 4. Lipitor 40 mg daily. 5. Plavix 75 mg daily. 6. Cardizem 120 daily. 7. Colace. 8. Cymbalta 60 mg daily. 9. Imdur 60 mg daily. 10. Levaquin 750 at bedtime. 11. Synthroid 175 mcg daily. 12. Lisinopril 5 mg daily. 13. Metoprolol 25 mg daily. 14. Prednisone 40 mg daily. 15. Protonix 40 mg daily. 16. Seroquel 100 mg at bedtime. Her Depakote has been stopped. PHYSICAL EXAMINATION: On exam, temperature 98.3, pulse 81, respiratory rate is 20, blood pressure 120/63. She is alert and oriented, normal speech and comprehension. Cranial nerves II through XII were abnormal for some left facial weakness and she had stigmata of stroke on her left side with left-sided weakness and hyperreflexia. Chest: Clear. Cardiovascular: Regular rate and rhythm with a PFO murmur. DIAGNOSTIC STUDIES/LAB DATA: White count 11, hematocrit 26, platelets 413,000. PTT 38.9. Normal BMP today. Influenza A and B negative. IMPRESSION: I think that she has some musculoskeletal headache as her primary headache and I am concerned that she might have rebound headache from all the tramadol and pain meds that she is taking. Discussed with her that it might be appropriate for her to have a pain medicine consult. Also when she goes home, recommend having a trial of Cefaly that may help the headache and that could be ordered through [facility] [employer]. I think that may be helpful should be checked since this may be contributing to musculoskeletal headache and that can be done as an outpatient as well. Thank you for sharing her case. [id number]/[facility] #: [id number] NICOLE
[2017-09-14] MEDS: Albuterol 2.5 MG/3 ML NEB.SOL* (0.083%) INH PRN ×2 (02:40→09:29)
[2017-09-14] MEDS: Acetaminophen TAB* 325 MG PO PRN ×2 (03:19→10:08)
[2017-09-14] MEDS: Levothyroxine TAB* 175 MCG TAB PO SCH (06:08)
[2017-09-14 07:49] VITALS: BP 148/77
[2017-09-14] MEDS: Metoprolol Succinate XL TAB* 50 MG PO SCH (08:35)
[2017-09-14] MEDS: Apixaban* 5 MG TAB PO SCH (08:36)
[2017-09-14] MEDS: predniSONE TAB* 20 MG PO SCH (08:36)
[2017-09-14] MEDS: Magnesium Oxide TAB* 400 MG PO SCH (08:36)
[2017-09-14] MEDS: Isosorbide Mononitrate ER TAB* 60 MG PO SCH (08:36)
[2017-09-14] MEDS: Docusate CAP* 100 MG PO SCH (08:37)
[2017-09-14] MEDS: Clopidogrel TAB* 75 MG PO SCH (08:37)
[2017-09-14] MEDS: amLODIPine TAB* 5 MG PO SCH (08:37)
[2017-09-14] MEDS: Lisinopril TAB* 5 MG PO SCH (08:37)
[2017-09-14] MEDS: Diltiazem CD CAP* 120 MG PO SCH (08:37)
[2017-09-14] MEDS: Sodium Chloride TAB* 1 GM PO SCH (08:37)
[2017-09-14] MEDS: DULoxetine DR CAP* 60 MG CAP.DR PO SCH (08:37)
[2017-09-14] MEDS: CMCS: Pantoprazole TAB (NF) 40 MG TAB PO SCH (08:37)
[2017-09-14] MEDS: Cholecalciferol TAB* 1000 UNITS PO SCH (08:37)
[2017-09-14] MEDS ORDERED: Gabapentin CAP(*) 300 MG PO PRN (08:52)
--- NOTE | 2017-09-14 18:20 | DS ---
CC: Guerrero Gtz NP * DISCHARGE SUMMARY: DATE OF ADMISSION: 09/10/17 DATE OF DISCHARGE: 09/14/17 PRIMARY CARE PROVIDER: Guerrero Gtz NP MY ATTENDING FOR TODAY: Dr. Kate Hubbard.* (DICTATED BY BRYANNA KELLEY NP) ATTENDING FOR THIS ADMISSION: Dr. Master Durant. HOSPITAL COURSE: This is a 66-year-old female patient very well known to our service, who has had multiple hospitalizations over the past 6 months for varying chronic conditions. The patient's most recent hospitalizations began late in 2016. She was admitted 02/07/17, readmitted 02/22/17, 03/11/17, 03/20/17 , 05/01/17, 05/17/17, 06/01/17, 06/04/17, 06/05/17, 06/07/17, 07/15/17, 07/27/17 , 08/04/17, 09/04/17, and most recently on 09/10/17. The patient had just been discharged from the hospital a few days prior. She had also done some rehab earlier in the year at [facility], which she responded well; however, after returning back home, the patient states she became acutely short of breath. Normally, the patient does not wear oxygen at home; however, she does have history of lung cancer, upper lobectomy with chemo and radiation in the past. She also has history significant for coronary artery disease; NSTEMI; CVA with late deficit of the left upper extremity; chronic COPD and active smoking; patent foramen ovale; hypertension; hyperlipidemia; hypothyroidism; GI bleed earlier this year secondary to NSAID administration; recurrent hyponatremia, on salt tab supplementation; history of opioid and benzodiazepine abuse; hiatal hernia and GERD; anxiety and depression. The patient presented to the emergency department on the evening of 09/10/17 at about 4 p.m. She had some severe nonexertional, nonradiating chest pressure with associated shortness of breath. She denied any diaphoresis. No palpitations, no lightheadedness, no dizziness. Also, no cough or congestion. However, she does have permanent cough from her tobacco abuse and COPD. The patient states she was just having a lot of trouble breathing and was admitted with diagnosis of pneumonia in the left lower lobe. She also met criteria for SIRS at admission with some tachycardia, leukocytosis, and tachypnea. She was started on IV Levaquin and IV fluid. Blood and sputum cultures were drawn. She was given supplemental oxygen and supportive care. The patient responded well to her Levaquin, nebulizer treatments, and also supplemental oxygen. She was weaned off oxygen after a couple of days and remained afebrile. Her blood cultures were negative. She was also negative for Strep pneumo, for Legionella, negative for influenza, and blood cultures showed no growth during this admission. The patient was complaining of chronic headache. She was seen by Dr. Santamaria, who stated in her note that the patient probably is still having some overuse of medications while at home, for example she had been using a lot of NSAIDs for her headache pain and had GI bleed earlier in the year, but also had been taking opioids in the past and benzos. The patient was probably having rebound headache as she was taking a lot of tramadol as well when she was discharged from her rehab facility. Essentially, Neurology notes that she was having rebound headache, she was given Tylenol, supportive care, hot and cold packs, and gabapentin as needed for headache symptoms. I also had a very extensive discussion with the patient about her chronic pain issues and just continuing her medications as ordered and not overdoing herself on the medications. We also talked extensively about her anxiety and depression and her social issues at home. As such, the patient will be referred for VNS services in the house in order to help keep her from being readmitted to the hospital. PHYSICAL EXAM ON THE DAY OF DISCHARGE: Vital Signs: Blood pressure 148/77, heart rate 86, respiratory rate 20, satting at 100% on room air, temperature is 97.9. HEENT: The patient is atraumatic, normocephalic. She has PERRLA with nonicteric sclerae. Oral mucosa is moist. Neck is supple. No carotid bruits auscultated and no thyromegaly appreciated. Cardiovascular: S1 and S2 were present. The patient is in AFib. Rate is controlled. Rhythm is irregular. Lungs are clear at the right apex. She is not exhibiting any wheeze. She is diminished throughout the left lung barron and absent over her lobectomy. There are no rhonchi or rales noted. Abdomen is soft, nontender, and nondistended. Positive bowel sounds in all 4 quadrants. is deferred. Musculoskeletal: There is no clubbing, no cyanosis. She has trace bipedal edema. She has good pulses. +2 pedal pulses noted. She has steady gait. Neurologic: Grossly intact with no focal deficits. Her left upper extremity is at her baseline. She does have some weakness on that side; this is not new. Psychiatric: She is cooperative, although tearful and somewhat depressed at times, however, she does answer questions appropriately and responds well to redirection. LABORATORY DATA: WBC is 11.0, RBC is 3.09, hemoglobin 8.4, hematocrit 26, platelets 415. Sodium 136, potassium 3.6, chloride 104, CO2 of 25, BUN 14, creatinine 0.71, GFR is 82.6, lactic acid at admission was 0.5, magnesium 2.1, calcium 8.6, glucose 90. Troponins were negative at 0.01 consistently. Procalcitonin was negative at 0.1. DISCHARGE DIAGNOSES: 1. Left lower lobe pneumonia, community acquired. 2. History of anxiety. 3. Sepsis. 4. Atrial fibrillation. 5. Coronary artery disease. 6. Chronic obstructive pulmonary disease. 7. Chronic headache. 8. Hypertension. 9. Depression. 10. Gastroesophageal reflux disease and hiatal hernia. 11. Hyperlipidemia. DISCHARGE MEDICATIONS: Include: 1. Tylenol 650 mg q.6 hours as needed. 2. Albuterol 2.5 mg q.4 hours as needed. 3. Ventolin inhaler 2 puffs q.4 hours as needed. 4. Amlodipine 5 mg daily. 5. Eliquis 5 mg 2 times a day. 6. Lipitor 40 mg in the evening. 7. Vitamin D 2000 units daily. 8. Plavix 75 mg daily. 9. Diltiazem 120 mg daily. 10. Colace 200 mg 2 times a day scheduled. 11. Cymbalta 60 mg p.o. daily. 12. Gabapentin 300 mg 3 times a day as needed. 13. Atrovent 0.5 mg inhaled four times a day as needed. 14. Imdur 60 mg daily. 15. Levaquin 750 mg for 5 more days. 16. Levothyroxine 175 mcg daily. 17. Lisinopril 5 mg daily. 18. Magnesium oxide 400 mg daily. 19. Melatonin 3 mg at bedtime p.r.n. 20. Metoprolol XL 25 mg daily. 21. Asmanex 200 mcg 2 puffs in the evening. 22. Protonix 40 mg 2 times a day. 23. Seroquel 100 mg at bedtime. 24. Sodium chloride tabs 1 g by mouth daily. DISCHARGE DISPOSITION: The patient was discharged to home in stable condition. She did not meet criteria for subacute rehab at this time. The patient has a steady gait. She was seen by Physical Therapy. She has no gait disturbances noted. She does have community resources set up through our case management department. The patient will continue to be followed in the community. We recommend that she sees her primary care physician and also Dr. Fernandez as an outpatient for continued lung care and also we have reinforced continued smoking cessation. The patient was discharged in stable condition. All questions were answered. Her daughter is at the bedside for discharge. The patient states understanding of her medications at the time of discharge and her followups. BRYANNA KELLEY NP [id number]/[facility] #: [id number] NICOLE
== END 2017-09-14 12:35 | disposition home health service (06) | DRG 871 ==
LOC: ED 17:59 → MED 09-10 00:33
PROVIDERS: ADMIT Hospitalist; ATTEND Internal Medicine
DX: A41.9 Sepsis, unspecified organism (principal); J18.8 Other pneumonia, unspecified organism; I69.354 Hemiplegia and hemiparesis following cerebral infarction affecting left non-dominant side; Q21.1 Atrial septal defect; J44.1 Chronic obstructive pulmonary disease with (acute) exacerbation; E87.1 Hypo-osmolality and hyponatremia; F41.9 Anxiety disorder, unspecified; I48.91 Unspecified atrial fibrillation; I25.10 Atherosclerotic heart disease of native coronary artery without angina pectoris; I11.9 Hypertensive heart disease without heart failure; R51 Headache; F32.9 Major depressive disorder, single episode, unspecified; K21.9 Gastro-esophageal reflux disease without esophagitis; K44.9 Diaphragmatic hernia without obstruction or gangrene; E78.5 Hyperlipidemia, unspecified; F11.21 Opioid dependence, in remission; M54.5 Low back pain; E03.9 Hypothyroidism, unspecified; F15.21 Other stimulant dependence, in remission; D64.9 Anemia, unspecified; R07.9 Chest pain, unspecified; F17.210 Nicotine dependence, cigarettes, uncomplicated; E55.9 Vitamin D deficiency, unspecified; Z85.118 Personal history of other malignant neoplasm of bronchus and lung; I25.2 Old myocardial infarction; Z86.711 Personal history of pulmonary embolism; Z79.1 Long term (current) use of non-steroidal anti-inflammatories (NSAID); Z79.899 Other long term (current) drug therapy; Z88.6 Allergy status to analgesic agent; Z91.040 Latex allergy status; Z82.49 Family history of ischemic heart disease and other diseases of the circulatory system; Z81.1 Family history of alcohol abuse and dependence; Z83.79 Family history of other diseases of the digestive system; Z79.01 Long term (current) use of anticoagulants; Z79.02 Long term (current) use of antithrombotics/antiplatelets
CPT/HCPCS: 36415; 70553; 71046; 71275; 80048; 80053; 81003; 81015; 82550; 82553; 83605; 83735; 83880; 84145; 84484; 85025; 85730; 86140; 87040; 87070; 87086; 87205; 87502; 87899; 93005; 94640; 94760; 99284; A9270-GY; A9579; G8978-GP-CH; G8978-GP-CI; G8978-GP-CM; G8979-GP-CH; G8979-GP-CL; G8987-GO-CK; G8988-GO-CI; J2060; J2270; J2930; J3475; J7512; Q9967

== ENCOUNTER 2017-09-26 19:55 | Inpatient (IN) | payer MEDICARE, BC ==
[2017-09-26] MEDS ORDERED: Acetaminophen TAB* 325 MG PO ONE (20:11)
[2017-09-26] MEDS ORDERED: methylPREDNISolone 125 MG* 2 ML VIAL IV ONE (20:11)
[2017-09-26] MEDS ORDERED: Albuterol/Ipratropium NEB.SOL* Albuterol 2.5 MG/Ipratropium 0.5 MG 3 ML INH ONE (20:11)
--- NOTE | 2017-09-26 20:54 | RAD ---
Indication: Shortness of breath. Post LEFT upper lobe lung resection for lung carcinoma. Emphysema. Comparison: September 10, 2017 CT. Technique: Upright AP 2024 hours Report: Leftward rotation noted. LEFT hemithorax volume loss secondary to LEFT upper lobectomy. Compensatory hyperexpansion of the RIGHT lung. No focal pulmonary lesion, alveolar consolidation, pleural effusion, pneumothorax. Negative for cardiomegaly. Unremarkable central pulmonary vasculature and mediastinal contours accounting for postsurgical change. Post partial resection of the LEFT fifth rib. No suspicious osseous lesions evident. IMPRESSION: Postsurgical change of LEFT upper lobectomy and stigmata of chronic obstructive pulmonary disease. No acute cardiopulmonary process evident.
[2017-09-26 21:06] LABS: ABS Basophils 0.1 10^3/ul (0-0.2); ABS Eosinophils 0.2 10^3/ul (0-0.6); ABS Lymphocytes 1.8 10^3/ul (1.0-4.8); ABS Monocytes 1.4 10^3/ul (0-0.8); ABS Neutrophils 7.3 10^3/ul (1.5-7.7); ABS Nucleated RBC 0 10^3/ul; Eosinophil % 2.1 % (0-6); Hematocrit 31 % (35-47); Hemoglobin 10.3 g/dl (12.0-16.0); Lymphocyte % 16.7 % (25-47); Mean Corpuscular HGB Conc 33 g/dl (31-36); Mean Corpuscular Hemoglobin 27 pg (27-31); Mean Corpuscular Volume 82 fL (80-97); Nucleated Red Blood Cells % 0.1; Platelet Count 479 10^3/ul (150-450); Red Cell Distribution Width 19 % (10.5-15); White Blood Count 10.9 10^3/ul (3.5-10.8)
[2017-09-26 21:07] LABS: INR 0.98 (0.77-1.02)
[2017-09-26] MEDS ORDERED: Diltiazem TAB* 30 MG PO ONE (23:08)
[2017-09-26] MEDS ORDERED: Acetaminophen TAB* 325 MG PO PRN (23:09)
[2017-09-26] MEDS ORDERED: Ipratropium 0.5MG/2.5ML NEB* 0.5 MG/2.5 ML NEB.SOLN INH PRN (23:09)
[2017-09-26] MEDS ORDERED: Potassium Chlor TAB* 20 MEQ TAB.ER PO ONE (23:14)
[2017-09-26] MEDS ORDERED: NS 0.9% 1000 ML* 1,000 ML IV SCH (23:15)
--- NOTE | 2017-09-26 23:24 | ED ---
Danny Winkler Gabriel, scribed for Robbi Arriaga on 09/26/17 at 2012 . Shortness of Breath - HPI Summary HPI Summary: This patient is a 66 year old F BIBA to [facility] with a chief complaint of SOB that began yesterday and is worse today. The patient rates the pain 2/10 in severity. Patient reports weakness, tremors, mild cough, and light headedness. Patient denies fever and edema. Hx of COPD and still is a current smoker - History of Current Complaint Time Seen by Provider: 09/26/17 20:06 Hx Obtained From: Patient Onset/Duration: Lasting Days, Still Present, Worse Since - today Timing: Constant Current Severity: Moderate Dyspnea At: Exertion Associated Signs & Symptoms: Negative - edema, fever, Cough (Productive) - Allergy/Home Medications Allergies/Adverse Reactions: Allergies Allergy/AdvReac Type Severity Reaction Status Date / Time aspirin Allergy Severe Anaphylatic Verified 09/09/17 18:20 Shock latex Allergy Mild Rash Verified 09/09/17 18:20 PMH/Surg Hx/FS Hx/Imm Hx Endocrine/Hematology History: Reports: Hx Thyroid Disease - hypothyroid, Other Endocrine/Hematological Disorders - Benign goiter Denies: Hx Bone Marrow Disease, Hx Diabetes, Hx Systemic Lupus Erythematosus Cardiovascular History: Reports: Hx Angina, Hx Hypercholesterolemia - was high before cancer,now off meds., Hx Hypertension, Hx Myocardial Infarction - NSTEMI , Other Cardiovascular Problems/Disorders - patent foramen ovale; Murmur, Denies: Hx Congestive Heart Failure, Hx Coronary Artery Disease, Hx Pacemaker /ICD, Hx Valvular Heart Disease Respiratory History: Reports: Hx Asthma, Hx Chronic Obstructive Pulmonary Disease (COPD), Hx Lung Cancer - Left upper lobectomy, Hx Pneumonia, Other Respiratory Problems/Disorders - lung cancer, LOBECTOMY 09/11/11, Emphysema GI History: Reports: Hx Gastroesophageal Reflux Disease, Hx Hiatal Hernia, Other GI Disorders - colitis. 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, Hx Osteoporosis, Hx Scoliosis, Other Musculoskeletal History - scoliosis Denies: Hx Rheumatoid Arthritis Sensory History: Reports: Hx Cataracts - PATIENT STATES BEGINING OF CATARACTS LEFT EYE, Hx Contacts or Glasses, Hx Hearing Problem - right Denies: Hx Hearing Aid Opthamlomology History: Reports: Hx Cataracts - PATIENT STATES BEGINING OF CATARACTS LEFT EYE, Hx Contacts or Glasses Neurological History: Reports: Hx CVA - in 05/16, Hx Headaches, Hx Migraine - Rare post menopause Psychiatric History: Reports: Hx Anxiety, Hx Depression, Hx Community Mental Health Tx, Hx Substance Abuse - opioids Denies: Hx Panic Disorder, Hx Inpatient Treatment - Cancer History Cancer Type, Location and Year: LUNG CA, DIAGNOSED July 2012 Hx Chemotherapy: Yes Hx Radiation Therapy: No Hx Palliative Cancer Treatment: No - Surgical History Surgery Procedure, Year, and Place: LEFT UPPER LUNG REMOVED 09/2012, HYSTERECTOMY , tonsillectomy Hx Anesthesia Reactions: No - Immunization History Date of Tetanus Vaccine: utd Date of Influenza Vaccine: utd Infectious Disease History: Denies: Hx of Known/Suspected MRSA - Family History Known Family History: Positive: Cardiac Disease - Sudden cardiac arrest (father) , Other - son -- glioblastoma. UC mother. Fhx of colitis. - Social History Alcohol Use: None Alcohol Amount: Unknown Hx Substance Use: No Substance Use Type: Reports: None Substance Use Comment - Amount & Last Used: percocet Hx Tobacco Use: Yes Smoking Status (MU): Heavy Every Day Tobacco Smoker Type: Cigarettes Amount Used/How Often: 1/2 pack a day Length of Time of Smoking/Using Tobacco: 47 years Have You Smoked in the Last Year: Yes Review of Systems Negative: Fever Positive: Shortness Of Breath, Cough Negative: Edema Neurological: Other - tremors Positive: Weakness All Other Systems Reviewed And Are Negative: Yes Physical Exam - Summary Physical Exam Summary: Appearance: Well appearing, no pain distress Skin: warm, dry, reflects adequate perfusion Head/face: normal Eyes: EOMI, ADORE ENT: normal Neck: supple, non-tender Respiratory: bilateral wheezing Cardiovascular: tachycardia, pulses symmetrical Abdomen: non-tender, soft Bowel: present Musculoskeletal: normal, strength/ROM intact Neuro: normal, sensory motor intact, A&Ox3 Triage Information Reviewed: Yes Vital Signs On Initial Exam: Initial Vitals Temp Pulse Resp BP Pulse Ox 99 F 120 20 128/80 93 09/26/17 20:00 09/26/17 20:00 09/26/17 20:00 09/26/17 20:00 09/26/17 20:00 Vital Signs Reviewed: Yes Diagnostics - Vital Signs Vital Signs Temp Pulse Resp BP Pulse Ox 09/26/17 22:02 121 23 126/77 94 09/26/17 22:00 124 26 94 09/26/17 21:32 133 25 109/61 95 09/26/17 21:02 126 25 114/67 90 09/26/17 21:00 124 26 89 09/26/17 20:43 116 22 98 09/26/17 20:32 111 25 147/89 94 09/26/17 20:02 29 128/80 09/26/17 20:00 99 F 120 20 128/80 93 - Laboratory Lab Results: Lab Results 09/26/17 09/26/17 09/26/17 Range/Units 20:40 20:44 20:44 WBC (3.5-10.8) 10^3/ul RBC (4.0-5.4) 10^6/ul Hgb (12.0-16.0) g/dl Hct (35-47) % MCV (80-97) fL MCH (27-31) pg MCHC (31-36) g/dl RDW (10.5-15) % Plt Count (150-450) 10^3/ul MPV (7.4-10.4) um3 Neut % (Auto) (38-83) % Lymph % (Auto) (25-47) % Phelps % (Auto) (0-7) % Eos % (Auto) (0-6) % Baso % (Auto) (0-2) % Absolute Neuts (auto) (1.5-7.7) 10^3/ul Absolute Lymphs (auto) (1.0-4.8) 10^3/ul Absolute Monos (auto) (0-0.8) 10^3/ul Absolute Eos (auto) (0-0.6) 10^3/ul Absolute Basos (auto) (0-0.2) 10^3/ul Absolute Nucleated RBC 10^3/ul Nucleated RBC % INR (Anticoag Therapy) 0.98 (0.77-1.02) APTT 36.8 H (26.0-36.3) seconds ABG pH 7.45 (7.35-7.45) ABG pCO2 32 L (35-45) mmHg ABG pO2 62 L (80-100) mmHg ABG HCO3 23.8 (19-31) mmol/L ABG O2 Saturation 95.9 (95-98) % ABG Base Excess -1.3 (-2.0-2.0) Sodium (139-145) mmol/L Potassium (3.5-5.0) mmol/L Chloride (101-111) mmol/L Carbon Dioxide (22-32) mmol/L Anion Gap (2-11) mmol/L BUN (6-24) mg/dL Creatinine (0.51-0.95) mg/dL Est GFR ( Amer) (>60) Est GFR (Non-Af Amer) (>60) BUN/Creatinine Ratio (8-20) Glucose (70-100) mg/dL Lactic Acid (0.5-2.0) mmol/L Calcium (8.6-10.3) mg/dL Total Bilirubin (0.2-1.0) mg/dL AST (13-39) U/L ALT (7-52) U/L Alkaline Phosphatase (34-104) U/L Troponin I (<0.04) ng/mL B-Natriuretic Peptide 149 H ( - 100) pg/mL Total Protein (6.4-8.9) g/dL Albumin (3.2-5.2) g/dL Globulin (2-4) g/dL Albumin/Globulin Ratio (1-3) 09/26/17 09/26/17 09/26/17 Range/Units 20:44 20:44 20:44 WBC 10.9 H (3.5-10.8) 10^3/ul RBC 3.80 L (4.0-5.4) 10^6/ul Hgb 10.3 L (12.0-16.0) g/dl Hct 31 L (35-47) % MCV 82 (80-97) fL MCH 27 (27-31) pg MCHC 33 (31-36) g/dl RDW 19 H (10.5-15) % Plt Count 479 H D (150-450) 10^3/ul MPV 8.0 (7.4-10.4) um3 Neut % (Auto) 67.5 (38-83) % Lymph % (Auto) 16.7 L (25-47) % Phelps % (Auto) 13.1 H (0-7) % Eos % (Auto) 2.1 (0-6) % Baso % (Auto) 0.6 (0-2) % Absolute Neuts (auto) 7.3 (1.5-7.7) 10^3/ul Absolute Lymphs (auto) 1.8 (1.0-4.8) 10^3/ul Absolute Monos (auto) 1.4 H (0-0.8) 10^3/ul Absolute Eos (auto) 0.2 (0-0.6) 10^3/ul Absolute Basos (auto) 0.1 (0-0.2) 10^3/ul Absolute Nucleated RBC 0 10^3/ul Nucleated RBC % 0.1 INR (Anticoag Therapy) (0.77-1.02) APTT (26.0-36.3) seconds ABG pH (7.35-7.45) ABG pCO2 (35-45) mmHg ABG pO2 (80-100) mmHg ABG HCO3 (19-31) mmol/L ABG O2 Saturation (95-98) % ABG Base Excess (-2.0-2.0) Sodium 129 L (139-145) mmol/L Potassium 3.4 L (3.5-5.0) mmol/L Chloride 97 L (101-111) mmol/L Carbon Dioxide 22 (22-32) mmol/L Anion Gap 10 (2-11) mmol/L BUN 12 (6-24) mg/dL Creatinine 0.81 (0.51-0.95) mg/dL Est GFR ( Amer) 91.3 (>60) Est GFR (Non-Af Amer) 71.0 (>60) BUN/Creatinine Ratio 14.8 (8-20) Glucose 108 H (70-100) mg/dL Lactic Acid 1.5 (0.5-2.0) mmol/L Calcium 9.5 (8.6-10.3) mg/dL Total Bilirubin 0.30 (0.2-1.0) mg/dL AST 16 (13-39) U/L ALT 10 (7-52) U/L Alkaline Phosphatase 101 (34-104) U/L Troponin I 0.01 (<0.04) ng/mL B-Natriuretic Peptide ( - 100) pg/mL Total Protein 7.3 (6.4-8.9) g/dL Albumin 3.9 (3.2-5.2) g/dL Globulin 3.4 (2-4) g/dL Albumin/Globulin Ratio 1.1 (1-3) Result Diagrams: 09/26/17 20:44 09/26/17 20:44 Lab Statement: Any lab studies that have been ordered have been reviewed, and results considered in the medical decision making process. - Radiology CXR Radiology Interpretation Completed By: Radiologist - Postsurgical change of LEFT upper lobectomy and stigmata of chronic obstructive pulmonary disease. No acute cardiopulmonary process evident. ED physician has reviewed this radiology report. - EKG 20:45 Cardiac Rate: Tachycardia EKG Rhythm: Sinus Tachycardia - at 112 BPM EKG Interpretation: no acute changes Course/Dx - Course Assessment/Plan: This patient is a 66 year old F BIBA to [facility] with a chief complaint of SOB that began yesterday and is worse today. The patient rates the pain 2/10 in severity. Patient reports weakness, tremors, mild cough, and light headedness. Patient denies fever and edema. An EKG reveals sinus tachy no acute changes. CXR reveals, per radiologist, Postsurgical change of LEFT upper lobectomy and stigmata of chronic. obstructive pulmonary disease. No acute cardiopulmonary process evident. Blood work obtained. In the ED course the patient was given solumedrol, tylenol, and a duoneb. Dx exacerbation of COPD. We discussed patient care with Dr. Garcia and they have accepted the patient for admission. Patient will be admitted. The patient is agreeable with this plan. - Diagnoses Differential Diagnosis/HQI/PQRI: Positive: Asthma, CHF, COPD Exacerbation, MO, Pneumonia Provider Diagnoses: COPD exacerbation, A-fib - Physician Notifications Discussed Care of Patient With: Megan Garcia Time Discussed With Above Provider: 22:53 Instructed by Provider To: Admit As Inpatient - Critical Care Time Critical Care Time: 30-74 min Discharge - Sign-Out/Discharge Documenting (check all that apply): Discharge/Admit/Transfer - admitted to Dr. Garcia - Discharge Plan Condition: Fair Disposition: ADMITTED TO [facility] Referrals: Guerrero Gtz, RADIO MECHANIC APPRENTICE [Primary Care Provider] - - Billing Disposition and Condition Condition: FAIR [place] [place] The documentation as recorded by the scribe, Delgado,Addi accurately reflects the service I personally performed and the decisions made by me, Robbi Arriaga.
[2017-09-26] MEDS ORDERED: Diltiazem CD CAP* 120 MG PO SCH (23:45)
--- NOTE | 2017-09-27 01:50 | HP ---
CC: Guerrero Gtz NP * HISTORY AND PHYSICAL: DATE OF ADMISSION: 09/26/17 PRIMARY CARE PROVIDER: Guerrero Gtz NP CHIEF COMPLAINT: Dizziness. HISTORY OF PRESENT ILLNESS: Ms. Glover is a 66-year-old female well-known to me from multiple prior hospitalizations. She presents to the emergency room with complaints of severe dizziness upon attempting to stand. The patient also initially complained of shortness of breath to the ER provider; however, when I asked her about this, she states it is more of the dizziness that precipitated her visit to the emergency room. The patient states that her symptoms began on the day prior to admission in the early afternoon. She states that she did not eat everything over the last 24 hours because every time she tried to get up she felt like she would pass out. The patient did not pass out, however. The patient states that she has been drinking okay over the last 24 hours. She states her urine output is normal. She states that she cannot feel that her heart rate is rapid, but she is unable to tell me how long her heart rate has been rapid for. She states she has been taking her medications as prescribed. Numerous times during her conversation the patient states to me she wishes she would feel better so that she could stay home and be successful in remaining at home and not representing to the emergency room. PAST MEDICAL HISTORY: 1. Intermittent hyponatremia. 2. COPD. 3. History of lung cancer. 4. Hypertension. 5. Hyperlipidemia. 6. Hypothyroidism. 7. Chronic pain. 8. History of PE. 9. History of opioid and benzodiazepine abuse. 10. Anxiety. 11. Coronary artery disease. 12. History of GI bleed in the setting of NSAID use. 13. History of CVA with residual left arm weakness. PAST SURGICAL HISTORY: 1. Left upper lobectomy. 2. Tonsillectomy. 3. Hysterectomy. MEDICATIONS: 1. Amlodipine 5 mg p.o. daily. 2. Sodium chloride 1 g p.o. daily. 3. Seroquel 100 mg p.o. q.h.s. 4. Omeprazole 40 mg p.o. b.i.d. 5. Metoprolol XL 25 mg p.o. daily. 6. Magnesium oxide 400 mg p.o. daily. 7. Lisinopril 5 mg p.o. daily. 8. Synthroid 175 mcg p.o. daily. 9. Imdur 60 mg p.o. daily. 10. Atrovent 0.5 mg inhaled 4 times daily p.r.n. shortness of breath. 11. Gabapentin 300 mg p.o. t.i.d. p.r.n. pain. 12. Flovent 1 puff inhaled twice daily. 13. Docusate 200 mg p.o. b.i.d. 14. Diltiazem CD 120 mg p.o. daily. 15. Duloxetine DR 60 mg p.o. daily. 16. Plavix 75 mg p.o. daily. 17. Vitamin D 2000 units p.o. daily. 18. Lipitor 40 mg p.o. daily. 19. Eliquis 5 mg p.o. b.i.d. 20. Albuterol HFA 2 puffs inhaled q.4 hours p.r.n. shortness of breath. 21. Albuterol 1 neb inhaled q.4 hours p.r.n. shortness of breath. 22. Tylenol 650 mg p.o. q.6 hours p.r.n. pain. ALLERGIES: ASPIRIN and LATEX. FAMILY HISTORY: Mom had a history of ulcerative colitis. Dad had a history of coronary artery disease. SOCIAL HISTORY: The patient currently smokes 5 cigarettes per day. She does not drink alcohol. Her surrogate decision maker is her daughter, Elyssa. REVIEW OF SYSTEMS: A complete 11-system review of systems is obtained. Pertinent positives and negatives are as per HPI and in addition, the patient does complain of an occasional cough and shortness of breath that she now states is at baseline. PHYSICAL EXAMINATION GENERAL: The patient is a well-developed, middle-aged female sitting in the stretcher, in no acute distress. VITAL SIGNS: Blood pressure 126/77, pulse 123, respirations 23, temp 99, O2 sat 94% on room air. HEENT: Pupils are equal and round. Extraocular movements are intact. Oropharynx is clear. Oral mucosa is moist. NECK: There is no submandibular, cervical, or supraclavicular adenopathy. Thyroid is not enlarged. No thyroid nodules are noted. PULMONARY: Lungs are clear bilaterally. CARDIAC: Normal S1 and S2. Heart rate is tachycardic, but regular. There is a 3/6 systolic murmur heard best at the left upper sternal border. There is no lower extremity edema. ABDOMEN: Bowel sounds are present. Abdomen is soft, nontender, nondistended. MUSCULOSKELETAL: There is no cyanosis or clubbing of the digits. There is full range of motion of the right upper extremity and bilateral lower extremities. Left distal upper extremity range of motion is limited due to her past stroke. SKIN: Warm and dry. There are no rashes. The patient is bald. NEUROLOGIC: Cranial nerves II through XII are grossly intact. Sensation is intact to light touch throughout. Strength is 5/5 and symmetric in the bilateral lower extremities and in the right upper extremity. Distal left upper extremity strength is limited due to prior stroke and unchanged. PSYCH: The patient is alert, she is oriented x3. Affect appears appropriate. LABORATORY DATA: WBC 10.9, hemoglobin 10.3, hematocrit 31, platelets 479, INR 0.98. ABG 7.45/32/62. Sodium 129, potassium 3.4, chloride 97, CO2 22, BUN 12, creatinine 0.81, glucose 108, lactic acid 1.5, calcium 9.5, bilirubin 0.3, AST 16, ALT 10, alk phos 101, troponin 0.01, BNP 149, albumin 3.9. EKG reveals what appears to be sinus tachycardia. ASSESSMENT AND PLAN: Ms. Glover is a 66-year-old female with a history of numerous chronic medical conditions who has had a prior hospitalization just this year who presents to the emergency room with complaints of dizziness. 1. Dizziness. I suspect this is likely related from the patient not eating and her tachycardia. I have significant concerns that the patient was not truthful when she states that she has been taking her medications as prescribed. I will give her 1 time dose of diltiazem immediate release 30 mg now. We will monitor her heart rate. Additionally, the patient will be hydrated overnight. The patient will then continue on her usual doses of metoprolol and diltiazem. There have been significant concerns in the past whether or not the patient is able to manage her own affairs at home. The patient has had now 3 hospitalizations just this month likely confirming the fact that she cannot manage alone. The patient does not want to be admitted to a retirement nor does she want to consider assisted living. However, it has been explained to her that these repeated admissions are not very beneficial to the patient and not appropriate as likely if she were in a setting where she had support to help care for herself she could do well. 2. Chronic obstructive pulmonary disease. There are no signs of exacerbation at this point. The patient did receive nebs and Solu-Medrol in the emergency room. The patient states to me that her breathing is at baseline. She will continue on her usual home inhaler regimen. 3. Chronic pain/migraines. Continue p.r.n. Tylenol. 4. Depression/anxiety. Continue duloxetine and Seroquel. 5. Atrial fibrillation. While the patient's EKG clearly shows P-waves, there is one that is questionably multifocal atrial tachycardia. Again as above, I feel that the patient likely has not taken her medications as prescribed. She will be resumed on her metoprolol XL and diltiazem CD. She will continue on her Eliquis. 6. Hypothyroidism. We will go ahead and check a TSH given her tachycardia. She will otherwise continue on her current Synthroid dose. 7. Hyponatremia. The patient's sodium is slightly lower than previous. She will continue on salt tabs and she will receive 1 L of normal saline overnight. 8. DVT prophylaxis. According to the Adult Thrombosis Prophylaxis Risk Factor Assessment Guide, the patient has a total risk factor score of 8 making her high risk. She is already on Eliquis and this will act as her DVT prophylaxis. 9. Code status is full. TIME SPENT: 65 minutes were spent admitting this patient. [id number]/[facility] #: [id number] NICOLE
[2017-09-27] MEDS: Apixaban* 5 MG TAB PO SCH ×3 (02:09→20:07)
[2017-09-27] MEDS: QUEtiapine TAB* 100 MG PO SCH ×2 (02:10→20:07)
[2017-09-27] MEDS: Gabapentin CAP(*) 300 MG PO PRN ×3 (02:10→20:07)
[2017-09-27] MEDS: Calcium Carbonate CHEW TAB* 500 MG (TUMS) PO PRN ×3 (03:06→18:36)
[2017-09-27] MEDS: Ondansetron INJ* 2 MG/ML VIAL IV PRN ×2 (03:06→09:55)
[2017-09-27 03:38] LABS: Urine Appearance Clear; Urine Blood Negative (Negative); Urine Color Yellow; Urine Ketones Negative (Negative); Urine Protein 2+(100 mg/dL) (Negative); Urine Specific Gravity 1.005 (1.010-1.030); Urine Urobilinogen Negative (Negative)
[2017-09-27] MEDS: Levothyroxine TAB* 175 MCG TAB PO SCH (06:16)
[2017-09-27] MEDS ORDERED: Lisinopril TAB* 5 MG PO SCH (09:00)
[2017-09-27] MEDS ORDERED: amLODIPine TAB* 5 MG PO SCH (09:00)
[2017-09-27] MEDS ORDERED: CMCS: Pantoprazole TAB (NF) 40 MG TAB PO SCH (09:00)
[2017-09-27] MEDS: DULoxetine DR CAP* 60 MG CAP.DR PO SCH (09:53)
[2017-09-27] MEDS: Metoprolol Succinate XL TAB* 25 MG PO SCH (09:54)
[2017-09-27] MEDS: Clopidogrel TAB* 75 MG PO SCH (09:54)
[2017-09-27] MEDS: Sodium Chloride TAB* 1 GM PO SCH (09:54)
[2017-09-27] MEDS: Docusate CAP* 100 MG PO SCH ×2 (09:54→20:07)
[2017-09-27] MEDS: Magnesium Oxide TAB* 400 MG PO SCH (09:54)
[2017-09-27] MEDS: Cholecalciferol TAB* 1000 UNITS PO SCH (09:55)
[2017-09-27] MEDS: Isosorbide Mononitrate ER TAB* 60 MG PO SCH (10:06)
[2017-09-27] MEDS: Albuterol 2.5 MG/3 ML NEB.SOL* (0.083%) INH PRN ×2 (13:09→19:28)
[2017-09-27] MEDS ORDERED: Albuterol HFA INHALER* 8 gm MDI INH PRN (14:12)
[2017-09-27] MEDS ORDERED: Atorvastatin* 40 MG TAB PO SCH (17:00)
[2017-09-27] MEDS ORDERED: Mometasone 220 MCG MDI INH SCH (18:00)
[2017-09-27] MEDS ORDERED: NS 0.9% 250 ML* 250 ML IV ONE (18:57)
--- NOTE | 2017-09-27 18:58 | PN ---
Subjective Date of Service: 09/27/17 Interval History: Patient seen and examined, dizzy since admission. Found to be hypotensive this afternoon. Patient states she was feeling dizzy at home and thinks her blood pressure is "off". Denies Sob, no chest pain, no further complaints. Objective Active Medications: Acetaminophen (Tylenol Tab*) 650 mg PO Q6H PRN PRN Reason: FEVER/PAIN Last Admin: 09/27/17 14:55 Dose: 650 mg Albuterol (Ventolin 2.5 Mg/3 Ml Neb.Tracey*) 2.5 mg INH Q4H PRN PRN Reason: SOB/WHEEZING Last Admin: 09/27/17 13:09 Dose: 2.5 mg Albuterol (Ventolin Hfa Inhaler*) 1 puff INH Q4H PRN PRN Reason: SOB/WHEEZING Apixaban (Eliquis*) 5 mg PO BID [facility] Last Admin: 09/27/17 09:54 Dose: 5 mg Atorvastatin Calcium (Lipitor*) 40 mg PO 1700 [facility] Last Admin: 09/27/17 16:27 Dose: 40 mg Calcium Carbonate (Tums*) 500 mg PO Q4H PRN PRN Reason: acid reflux Last Admin: 09/27/17 18:36 Dose: 500 mg Cholecalciferol (Vitamin D Tab*) 2,000 units PO DAILY [facility] Last Admin: 09/27/17 09:55 Dose: 2,000 units Clopidogrel Bisulfate (Plavix Tab*) 75 mg PO DAILY [facility] Last Admin: 09/27/17 09:54 Dose: 75 mg Diltiazem HCl (Cardizem Cd Cap*) 120 mg PO Q24H [facility] Docusate Sodium (Colace Cap*) 200 mg PO BID [facility] Last Admin: 09/27/17 09:54 Dose: 200 mg Duloxetine HCl (Cymbalta Cap*) 60 mg PO DAILY [facility] Last Admin: 09/27/17 09:53 Dose: 60 mg Gabapentin (Neurontin Cap(*)) 300 mg PO TID PRN PRN Reason: PAIN Last Admin: 09/27/17 11:59 Dose: 300 mg Ipratropium [place] (Atrovent 0.5 Mg Neb.Tracey*) 0.5 mg INH QID PRN PRN Reason: SOB/WHEEZING Isosorbide Mononitrate (Imdur Er Tab*) 60 mg PO DAILY [facility] Last Admin: 09/27/17 10:06 Dose: 60 mg Levothyroxine Sodium (Synthroid Tab*) 175 mcg PO 0600 [facility] Last Admin: 09/27/17 06:16 Dose: 175 mcg Magnesium Oxide (Magox 400 Tab*) 400 mg PO DAILY [facility] Last Admin: 09/27/17 09:54 Dose: 400 mg Metoprolol Succinate (Toprol Xl Tab*) 25 mg PO DAILY [facility] Last Admin: 09/27/17 09:54 Dose: 25 mg Mometasone Furoate (Asmanex 220 Mcg Mdi *) 2 puff INH QPM [facility] Ondansetron HCl (Zofran Inj*) 4 mg IV Q6H PRN PRN Reason: NAUSEA Last Admin: 09/27/17 09:55 Dose: 4 mg Pantoprazole Sodium (Protonix Tab (Nf)) 80 mg PO BID [facility] Last Admin: 09/27/17 09:53 Dose: 80 mg Quetiapine Fumarate (Seroquel Tab*) 100 mg PO BEDTIME [facility] Last Admin: 09/27/17 02:10 Dose: 100 mg Sodium Chloride (Sodium Chloride Tab*) 1 gm PO DAILY [facility] Last Admin: 09/27/17 09:54 Dose: 1 gm Oxygen Devices in Use Now: None Appearance: alert, NAD Eyes: No Scleral Icterus, PERRLA Ears/Nose/Mouth/Throat: Mucous Membranes Moist Neck: NL Appearance and Movements; NL JVP, Trachea Midline Respiratory: Symmetrical Chest Expansion and Respiratory Effort, - - diminished throughout, no rhonchi or rales Cardiovascular: NL Sounds; No Murmurs; No JVD, RRR Extremities: No Edema Neurological: Alert and Oriented x 3, NL Muscle Strength and Tone Nutrition: Taking PO's Result Diagrams: 09/26/17 20:44 09/26/17 20:44 Additional Lab and Data: Lab Results 09/26/17 09/26/17 09/26/17 Range/Units 20:40 20:44 20:44 WBC (3.5-10.8) 10^3/ul RBC (4.0-5.4) 10^6/ul Hgb (12.0-16.0) g/dl Hct (35-47) % MCV (80-97) fL MCH (27-31) pg MCHC (31-36) g/dl RDW (10.5-15) % Plt Count (150-450) 10^3/ul MPV (7.4-10.4) um3 Neut % (Auto) (38-83) % Lymph % (Auto) (25-47) % [place] % (Auto) (0-7) % Eos % (Auto) (0-6) % Baso % (Auto) (0-2) % Absolute Neuts (auto) (1.5-7.7) 10^3/ul Absolute Lymphs (auto) (1.0-4.8) 10^3/ul Absolute Monos (auto) (0-0.8) 10^3/ul Absolute Eos (auto) (0-0.6) 10^3/ul Absolute Basos (auto) (0-0.2) 10^3/ul Absolute Nucleated RBC 10^3/ul Nucleated RBC % INR (Anticoag Therapy) 0.98 (0.77-1.02) APTT 36.8 H (26.0-36.3) seconds ABG pH 7.45 (7.35-7.45) ABG pCO2 32 L (35-45) mmHg ABG pO2 62 L (80-100) mmHg ABG HCO3 23.8 (19-31) mmol/L ABG O2 Saturation 95.9 (95-98) % ABG Base Excess -1.3 (-2.0-2.0) Sodium (139-145) mmol/L Potassium (3.5-5.0) mmol/L Chloride (101-111) mmol/L Carbon Dioxide (22-32) mmol/L Anion Gap (2-11) mmol/L BUN (6-24) mg/dL Creatinine (0.51-0.95) mg/dL Est GFR ( Amer) (>60) Est GFR (Non-Af Amer) (>60) BUN/Creatinine Ratio (8-20) Glucose (70-100) mg/dL Lactic Acid (0.5-2.0) mmol/L Calcium (8.6-10.3) mg/dL Total Bilirubin (0.2-1.0) mg/dL AST (13-39) U/L ALT (7-52) U/L Alkaline Phosphatase (34-104) U/L Troponin I (<0.04) ng/mL B-Natriuretic Peptide 149 H ( - 100) pg/mL Total Protein (6.4-8.9) g/dL Albumin (3.2-5.2) g/dL Globulin (2-4) g/dL Albumin/Globulin Ratio (1-3) 09/26/17 09/26/17 09/26/17 Range/Units 20:44 20:44 20:44 WBC 10.9 H (3.5-10.8) 10^3/ul RBC 3.80 L (4.0-5.4) 10^6/ul Hgb 10.3 L (12.0-16.0) g/dl Hct 31 L (35-47) % MCV 82 (80-97) fL MCH 27 (27-31) pg MCHC 33 (31-36) g/dl RDW 19 H (10.5-15) % Plt Count 479 H D (150-450) 10^3/ul MPV 8.0 (7.4-10.4) um3 Neut % (Auto) 67.5 (38-83) % Lymph % (Auto) 16.7 L (25-47) % [place] % (Auto) 13.1 H (0-7) % Eos % (Auto) 2.1 (0-6) % Baso % (Auto) 0.6 (0-2) % Absolute Neuts (auto) 7.3 (1.5-7.7) 10^3/ul Absolute Lymphs (auto) 1.8 (1.0-4.8) 10^3/ul Absolute Monos (auto) 1.4 H (0-0.8) 10^3/ul Absolute Eos (auto) 0.2 (0-0.6) 10^3/ul Absolute Basos (auto) 0.1 (0-0.2) 10^3/ul Absolute Nucleated RBC 0 10^3/ul Nucleated RBC % 0.1 INR (Anticoag Therapy) (0.77-1.02) APTT (26.0-36.3) seconds ABG pH (7.35-7.45) ABG pCO2 (35-45) mmHg ABG pO2 (80-100) mmHg ABG HCO3 (19-31) mmol/L ABG O2 Saturation (95-98) % ABG Base Excess (-2.0-2.0) Sodium 129 L (139-145) mmol/L Potassium 3.4 L (3.5-5.0) mmol/L Chloride 97 L (101-111) mmol/L Carbon Dioxide 22 (22-32) mmol/L Anion Gap 10 (2-11) mmol/L BUN 12 (6-24) mg/dL Creatinine 0.81 (0.51-0.95) mg/dL Est GFR ( Amer) 91.3 (>60) Est GFR (Non-Af Amer) 71.0 (>60) BUN/Creatinine Ratio 14.8 (8-20) Glucose 108 H (70-100) mg/dL Lactic Acid 1.5 (0.5-2.0) mmol/L Calcium 9.5 (8.6-10.3) mg/dL Total Bilirubin 0.30 (0.2-1.0) mg/dL AST 16 (13-39) U/L ALT 10 (7-52) U/L Alkaline Phosphatase 101 (34-104) U/L Troponin I 0.01 (<0.04) ng/mL B-Natriuretic Peptide ( - 100) pg/mL Total Protein 7.3 (6.4-8.9) g/dL Albumin 3.9 (3.2-5.2) g/dL Globulin 3.4 (2-4) g/dL Albumin/Globulin Ratio 1.1 (1-3) Diagnostic Imaging: Patient Name: ELIUD UGALDE Medical Record#: [id number] Ordering Physician: Robbi Arriaga MD Acct.#: [id number] : 1950 Age: 66 Sex: F Location: EMERGENCY DEPARTMENT Exam Date: 09/26/172010 ADM Status: REG ER Order Information: CHEST AP PORTABLE Accession Number: [id number] CPT: 24238 Indication: Shortness of breath. Post LEFT upper lobe lung resection for lung carcinoma. Emphysema. Comparison: September 10, 2017 CT. Technique: Upright AP 2024 hours Report: Leftward rotation noted. LEFT hemithorax volume loss secondary to LEFT upper lobectomy. Compensatory hyperexpansion of the RIGHT lung. No focal pulmonary lesion, alveolar consolidation, pleural effusion, pneumothorax. Negative for cardiomegaly. Unremarkable central pulmonary vasculature and mediastinal contours accounting for postsurgical change. Post partial resection of the LEFT fifth rib. No suspicious osseous lesions evident. IMPRESSION: Postsurgical change of LEFT upper lobectomy and stigmata of chronic obstructive pulmonary disease. No acute cardiopulmonary process evident. <Electronically signed by Jonathan Chan MD in [place]> 09/26/172050 Dictated By: Jonathan Chan MD Dictated Date/Time: 09/26/172050 Transcribed Date/Time: 09/26/172047 Copy to: Assess/Plan/Problems-Billing Assessment: This is a 66 year old female with multiple co-morbid conditions and multiple admissions, that presented to the ER with c/o dizziness, found to be hypotensive today. - Patient Problems (1) Hypotension Comment: - likely medication related and volume depletion - will give small bolus of 250ml NS now and reassess - hold amlodipine and lisinopril (2) Vertigo Code(s): R42 - DIZZINESS AND GIDDINESS SNOMED Code(s): 167472902 Comment: - question if her dizziness is the result of her hx of vertigo vs BP vs dehydration - meclizine PRN, fluid bolus now (3) Afib Code(s): I48.91 - UNSPECIFIED ATRIAL FIBRILLATION SNOMED Code(s): 64603595 Comment: - Continue diltiazem and eliquis, HgB stable was tachycardic at admission but in sinus (4) CAD (coronary artery disease) Code(s): I25.10 - ATHSCL HEART DISEASE OF [place] CORONARY ARTERY W/O ANG PCTRS SNOMED Code(s): 18256287 Comment: - Stable, no chest pain - known CAD with lesion of LAD and total occlusion of posterior decending artery, not stentable - Continue beta luis f, plavix, statin, ASA, and cardizem and telemetry (5) GERD (gastroesophageal reflux disease) Code(s): K21.9 - GASTRO-ESOPHAGEAL REFLUX DISEASE WITHOUT ESOPHAGITIS SNOMED Code(s): 666730678 Comment: - Recent gastritis - Protonix IV daily and will trial GI cocktai now - Hx of hiatal hernia, should follow up for consideration of surgical fixation outpatient to possibly decreased pneumonia frequency chance for esophagitis/ gastritis. (6) HLD (hyperlipidemia) Current Visit: No Status: Chronic Code(s): E78.5 - HYPERLIPIDEMIA, UNSPECIFIED SNOMED Code(s): 03057857 Comment: - Continue lipitor. (7) Tachycardia Code(s): R00.0 - TACHYCARDIA, UNSPECIFIED SNOMED Code(s): 7304270 Comment: - Resolved with additional dose of cardizem last night (8) DVT prophylaxis Code(s): DNL2071 - SNOMED Code(s): 562219383 Comment: - Continue eliquis (9) H/O: CVA (cerebrovascular accident) Code(s): Z86.73 - PRSNL HX OF TIA (TIA), AND CEREB INFRC W/O RESID DEFICITS SNOMED Code(s): 353715316 Comment: - Significant residual left sided weakness. - Continue atorvastatin, eliquis and plavix (10) Tobacco abuse Code(s): Z72.0 - TOBACCO USE SNOMED Code(s): 307015357 Comment: - Continued counseling on cessation, patient resistant (11) Full code status Code(s): Z78.9 - OTHER SPECIFIED HEALTH STATUS SNOMED Code(s): 397491756 Comment: Status and Disposition: Remain in obs until BP stable.
[2017-09-27] MEDS ORDERED: Meclizine TAB* 12.5 MG PO PRN (19:01)
[2017-09-27] MEDS ORDERED: Al Hydrox/Mg Hydrox/Simet LIQ* 30 ML UDC PO ONE (19:08)
[2017-09-27] MEDS ORDERED: Lidocaine 2% VISCOUS* 15 ML UDC PO ONE (19:08)
[2017-09-27] MEDS: Pantoprazole IV* 40 MG IV SCH (19:20)
[2017-09-27] MEDS ORDERED: Diltiazem CD CAP* 120 MG PO SCH (21:00)
[2017-09-27] MEDS ORDERED: NS 0.9% 500 ML* 500 ML IV ONE (23:40)
[2017-09-28] MEDS: Levothyroxine TAB* 175 MCG TAB PO SCH (05:26)
[2017-09-28] MEDS: DULoxetine DR CAP* 60 MG CAP.DR PO SCH (08:55)
[2017-09-28] MEDS: Docusate CAP* 100 MG PO SCH (08:55)
[2017-09-28] MEDS: Sodium Chloride TAB* 1 GM PO SCH (08:55)
[2017-09-28] MEDS: Apixaban* 5 MG TAB PO SCH (08:56)
[2017-09-28] MEDS: Cholecalciferol TAB* 1000 UNITS PO SCH (08:56)
[2017-09-28] MEDS: Pantoprazole IV* 40 MG IV SCH (08:56)
[2017-09-28] MEDS: Magnesium Oxide TAB* 400 MG PO SCH (08:56)
[2017-09-28] MEDS: Clopidogrel TAB* 75 MG PO SCH (08:56)
[2017-09-28] MEDS: Metoprolol Succinate XL TAB* 25 MG PO SCH (10:15)
[2017-09-28] MEDS: Isosorbide Mononitrate ER TAB* 60 MG PO SCH (10:15)
[2017-09-28] MEDS: Albuterol 2.5 MG/3 ML NEB.SOL* (0.083%) INH PRN (14:45)
[2017-09-28 15:39] VITALS: BP 101/50
--- NOTE | 2017-09-29 11:09 | DS ---
CC: Guerrero Gtz NP * DISCHARGE SUMMARY: DATE OF ADMISSION: 09/26/17 DATE OF DISCHARGE: 09/28/17 PRINCIPAL DISCHARGE DIAGNOSES: 1. Sinus tachycardia. 2. Hypotension. SECONDARY DISCHARGE DIAGNOSES: 1. History of cerebrovascular accident with left upper extremity weakness. 2. Iron deficiency anemia with history of gastrointestinal bleed. 3. Atrial fibrillation, on anticoagulation. 4. Coronary artery disease. 5. Chronic pain syndrome. 6. Chronic headache. 7. Hypertension. 8. Hypothyroidism. 9. Hyponatremia. 10. Depression. 11. Migraines. PHYSICAL EXAMINATION AT THE TIME OF DISCHARGE: Temperature 98.4 degrees, heart rate 99, respiratory rate 18, pulse ox 98% on room air, blood pressure 101/50. General: Alert, well-appearing female, in no distress. She is nontoxic appearing. HEENT: She is wearing a wig. Pupils are equal, round and reactive to light. She has no nystagmus. Neck: No JVP, no cervical lymphadenopathy. No supraclavicular lymphadenopathy. Her thyroid is not palpable. Chest: Regular rate and rhythm. A systolic murmur is heard over the right upper sternal border without radiation to the carotids. Her PMI is nondisplaced. Her lungs are clear bilaterally with no wheezes or rales. Abdomen: Soft, nontender, nondistended. No guarding or rebound. Extremities: Left upper extremity strength is 4/5 with 2/5 car audio installer strength. The remaining 3 extremities are 5/5 in strength and sensation is grossly intact. HOSPITAL COURSE BY PROBLEM: 1. Hypotension and tachycardia. There has been ongoing concern about Ms. Glover's reliability in taking her home medication. When asked about taking her home meds, she said she takes them religiously; however, a visiting nurse had been managing her pill box and Ms. Glover accused her of putting pills in the wrong box, so she does not allow her to do that anymore and she manages her pills on her own. At admission, her Cardizem and metoprolol doses were resumed with the assumption that she had not taken them at home and her heart rate responded appropriately. She was not noted to be in atrial fibrillation during this admission. In addition, when her home antihypertensives were resumed, her blood pressure fell to the 70s/40s further suggesting and confirming the suspicion that she may not be appropriately taking her home medications. At the time of discharge, I am only continuing her metoprolol and Cardizem due to a history of poorly controlled atrial fibrillation. I am discontinuing her lisinopril, amlodipine and Imdur. At the time of discharge, her blood pressure is 101/50 on this regimen and her symptoms have completely resolved. 2. History of CVA with left upper extremity weakness. She was continued on Plavix due to an allergy to ASPIRIN. 3. Atrial fibrillation. Again, she was continued on metoprolol and Cardizem and Eliquis. She was rate controlled after these medications were started in the emergency department. 4. Chronic pain syndrome. She was continued on duloxetine and gabapentin. 5. Hypothyroidism. Of note, her TSH was noted to be low here on levothyroxine 175 mcg daily; however, given her history of sporadic medication use and hypotension, I was hesitant to decrease this dose. Her TSH should be rechecked as an outpatient when she follows up with her PCP. 6. Coronary artery disease. She was noted to recently have an occluded RCA; however, she has good collaterals, so this is not intervened upon. Again, she was continued on Plavix and beta luis f. I did hold her Imdur due to her hypotension. She tells me that she never gets chest pain, so hopefully, holding the Imdur and allowing her to have increased blood pressures will prevent her from experiencing symptoms over her having chest pain due to holding the Imdur. 7. Home living condition: Ms. Glover has been followed very closely by Social Work and case management given her high utilization. She has had many admissions over the past several months. She is currently set up with [facility] and has visiting nurses as well as [employer] and home PT and OT. [id number]/[facility] #: [id number] NICOLE
== END 2017-09-28 18:10 | disposition home or self-care (01) | DRG 315 ==
LOC: ED 19:55 → MEDTELE 23:08 → OBSVTOIN 09-27 15:13
PROVIDERS: ADMIT Hospitalist; ATTEND Internal Medicine
DX: I95.9 Hypotension, unspecified (principal); E87.1 Hypo-osmolality and hyponatremia; Q21.1 Atrial septal defect; R00.0 Tachycardia, unspecified; I48.91 Unspecified atrial fibrillation; E03.9 Hypothyroidism, unspecified; E04.8 Other specified nontoxic goiter; D50.9 Iron deficiency anemia, unspecified; G89.4 Chronic pain syndrome; R51 Headache; E78.00 Pure hypercholesterolemia, unspecified; I10 Essential (primary) hypertension; J43.9 Emphysema, unspecified; K21.9 Gastro-esophageal reflux disease without esophagitis; M81.0 Age-related osteoporosis without current pathological fracture; M41.9 Scoliosis, unspecified; H91.91 Unspecified hearing loss, right ear; G43.909 Migraine, unspecified, not intractable, without status migrainosus; F41.9 Anxiety disorder, unspecified; F17.210 Nicotine dependence, cigarettes, uncomplicated; I25.10 Atherosclerotic heart disease of native coronary artery without angina pectoris; F32.9 Major depressive disorder, single episode, unspecified; Z90.710 Acquired absence of both cervix and uterus; Z82.49 Family history of ischemic heart disease and other diseases of the circulatory system; Z88.8 Allergy status to other drugs, medicaments and biological substances; Z87.01 Personal history of pneumonia (recurrent); Z85.118 Personal history of other malignant neoplasm of bronchus and lung; Z91.040 Latex allergy status; I25.2 Old myocardial infarction; Z90.2 Acquired absence of lung [part of]; Z83.79 Family history of other diseases of the digestive system; Z80.8 Family history of malignant neoplasm of other organs or systems; Z86.711 Personal history of pulmonary embolism; I69.334 Monoplegia of upper limb following cerebral infarction affecting left non-dominant side; Z91.14 Patient's other noncompliance with medication regimen
CPT/HCPCS: 36415; 71045; 80053; 81003; 81015; 82803; 83605; 83735; 83880; 84443; 84484; 85025; 85610; 85730; 87086; 93005; 94640; 94760; 99285; 99406; A9270-GY; J2405; J2930

== ENCOUNTER 2017-09-29 16:43 | Emergency (ER) | payer MEDICARE, BC ==
[2017-09-29] MEDS ORDERED: Albuterol/Ipratropium NEB.SOL* Albuterol 2.5 MG/Ipratropium 0.5 MG 3 ML INH ONE (16:50)
[2017-09-29] MEDS ORDERED: NS 0.9% 1000 ML* 1,000 ML IV SCH (17:00)
[2017-09-29 17:23] LABS: ABS Basophils 0.1 10^3/ul (0-0.2); ABS Eosinophils 0.2 10^3/ul (0-0.6); ABS Monocytes 1.1 10^3/ul (0-0.8); ABS Neutrophils 7.5 10^3/ul (1.5-7.7); ABS Nucleated RBC 0 10^3/ul; Eosinophil % 1.9 % (0-6); Hematocrit 24 % (35-47); Hemoglobin 7.9 g/dl (12.0-16.0); Lymphocyte % 18.4 % (25-47); Mean Corpuscular HGB Conc 33 g/dl (31-36); Mean Corpuscular Hemoglobin 27 pg (27-31); Mean Corpuscular Volume 82 fL (80-97); Mean Platelet Volume 7.6 um3 (7.4-10.4); Nucleated Red Blood Cells % 0; Platelet Count 370 10^3/ul (150-450); Red Blood Count 2.92 10^6/ul (4.0-5.4); Red Cell Distribution Width 19 % (10.5-15); White Blood Count 10.8 10^3/ul (3.5-10.8)
[2017-09-29 17:36] LABS: EGFR Non-African American 93.1 (>60)
[2017-09-29] MEDS ORDERED: traMADol TAB* 50 MG PO ONE (17:38)
--- NOTE | 2017-09-29 17:41 | RAD ---
HISTORY: Shortness of breath COMPARISONS: September 26, 2017, CT dated September 10, 2017 VIEWS: 1: frontal portable view of the chest at 5:25 PM. The patient is slightly obliqued to the left. FINDINGS: LINES AND TUBES: None. CARDIOMEDIASTINAL SILHOUETTE: The cardiomediastinal silhouette is normal for portable technique. PLEURA: The costophrenic angles are sharp. No pleural abnormalities are noted. LUNG PARENCHYMA: There is stable postsurgical change to the left lung. There is relative hyperexpansion of the right lung, stable. ABDOMEN: The upper abdomen is clear. There is no subphrenic gas. BONES AND SOFT TISSUES: No bone or soft tissue abnormalities are noted. IMPRESSION: POSTSURGICAL CHANGE. NO ACTIVE CARDIOPULMONARY DISEASE.
[2017-09-29] MEDS ORDERED: methylPREDNISolone 125 MG* 2 ML VIAL IV ONE (18:38)
[2017-09-29] MEDS ORDERED: Magnesium Sulfate 2 GM IV* 2 GM/50 ML BAG IVPB ONE (18:38)
--- NOTE | 2017-09-29 18:43 | ED ---
Elliot Winkler Julia, scribed for Tony Wilcox MD on 09/29/17 at 1652 . Shortness of Breath - HPI Summary HPI Summary: This patient is a 66 year old F presenting to [facility] with a chief complaint of SOB and chest tightness beginning a few hours ago that is currently improved. Pt reports a low grade fever. Pt was released from the hospital last night. EMS reports clear lungs, no labored breathing and productive cough with green sputum during transport. Pts SOB relieved with an albuterol tx at home around 15:45, but chest tightness persists. - History of Current Complaint Time Seen by Provider: 09/29/17 16:46 Hx Obtained From: Patient Onset/Duration: Lasting Hours, Resolved Alleviating Factors: Bronchodilators Associated Signs & Symptoms: Cough (Productive), Fever Related History: Healthcare Acquired: Inpatient Status Within Last 30 Days - Allergy/Home Medications Allergies/Adverse Reactions: Allergies Allergy/AdvReac Type Severity Reaction Status Date / Time aspirin Allergy Severe Anaphylatic Verified 09/09/17 18:20 Shock latex Allergy Mild Rash Verified 09/09/17 18:20 PMH/Surg Hx/FS Hx/Imm Hx Endocrine/Hematology History: Reports: Hx Thyroid Disease - hypothyroid, Other Endocrine/Hematological Disorders - Benign goiter Denies: Hx Bone Marrow Disease, Hx Diabetes, Hx Systemic Lupus Erythematosus Cardiovascular History: Reports: Hx Angina, Hx Hypercholesterolemia - was high before cancer,now off meds., Hx Hypertension, Hx Myocardial Infarction - NSTEMI , Other Cardiovascular Problems/Disorders - patent foramen ovale; Murmur, Denies: Hx Congestive Heart Failure, Hx Coronary Artery Disease, Hx Pacemaker /ICD, Hx Valvular Heart Disease Respiratory History: Reports: Hx Asthma, Hx Chronic Obstructive Pulmonary Disease (COPD), Hx Lung Cancer - Left upper lobectomy, Hx Pneumonia, Other Respiratory Problems/Disorders - lung cancer, LOBECTOMY 09/11/11, Emphysema GI History: Reports: Hx Gastroesophageal Reflux Disease, Hx Hiatal Hernia, Other GI Disorders - colitis. 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, Hx Osteoporosis, Hx Scoliosis, Other Musculoskeletal History - scoliosis Denies: Hx Rheumatoid Arthritis Sensory History: Reports: Hx Cataracts - PATIENT STATES BEGINING OF CATARACTS LEFT EYE, Hx Contacts or Glasses, Hx Hearing Problem - right Denies: Hx Hearing Aid Opthamlomology History: Reports: Hx Cataracts - PATIENT STATES BEGINING OF CATARACTS LEFT EYE, Hx Contacts or Glasses Neurological History: Reports: Hx CVA - in 05/16, Hx Headaches, Hx Migraine - Rare post menopause Psychiatric History: Reports: Hx Anxiety, Hx Depression, Hx Community Mental Health Tx, Hx Substance Abuse - opioids Denies: Hx Panic Disorder, Hx Inpatient Treatment - Cancer History Cancer Type, Location and Year: LUNG CA, DIAGNOSED July 2012 Hx Chemotherapy: Yes Hx Radiation Therapy: No Hx Palliative Cancer Treatment: No - Surgical History Surgery Procedure, Year, and Place: LEFT UPPER LUNG REMOVED 09/2012, HYSTERECTOMY , tonsillectomy Hx Anesthesia Reactions: No - Immunization History Date of Tetanus Vaccine: utd Date of Influenza Vaccine: utd Infectious Disease History: Denies: Hx of Known/Suspected MRSA - Family History Known Family History: Positive: Cardiac Disease - Sudden cardiac arrest (father) , Other - son -- glioblastoma. UC mother. Fhx of colitis. - Social History Occupation: Retired Alcohol Use: None Alcohol Amount: Unknown Hx Substance Use: No Substance Use Type: Reports: None Substance Use Comment - Amount & Last Used: percocet Hx Tobacco Use: Yes Smoking Status (MU): Light Every Day Tobacco Smoker Type: Cigarettes Amount Used/How Often: 1/2 pack a day Length of Time of Smoking/Using Tobacco: 47 years Have You Smoked in the Last Year: Yes Review of Systems Positive: Fever Positive: Chest Pain Positive: Shortness Of Breath, Cough All Other Systems Reviewed And Are Negative: Yes Physical Exam - Summary Physical Exam Summary: General: well-appearing, no pain distress Skin: warm, color reflects adequate perfusion, dry Head: normal Eyes: EOMI, ADORE ENT: normal Neck: supple, nontender Respiratory: CTA, breath sounds present Cardiovascular: RRR Abdomen: soft, nontender Bowel: present Musculoskeletal: normal, strength/ROM intact Neurological: normal, sensory/motor intact, A&O x3 Psychological: affect/mood appropriate Triage Information Reviewed: Yes Vital Signs On Initial Exam: Initial Vitals Pulse Resp BP Pulse Ox 91 13 148/86 98 09/29/17 16:52 09/29/17 16:52 09/29/17 16:52 09/29/17 16:52 Vital Signs Reviewed: Yes Diagnostics - Vital Signs Vital Signs Temp Pulse Resp BP Pulse Ox 09/29/17 18:00 91 19 100 09/29/17 17:22 87 24 120/81 99 09/29/17 17:00 91 25 97 09/29/17 16:54 98.6 F 90 11 140/86 98 09/29/17 16:52 91 13 148/86 98 - Laboratory Lab Results: Lab Results 09/29/17 09/29/17 09/29/17 Range/Units 17:07 17:07 17:07 WBC 10.8 (3.5-10.8) 10^3/ul RBC 2.92 L (4.0-5.4) 10^6/ul Hgb 7.9 L (12.0-16.0) g/dl Hct 24 L (35-47) % MCV 82 (80-97) fL MCH 27 (27-31) pg MCHC 33 (31-36) g/dl RDW 19 H (10.5-15) % Plt Count 370 (150-450) 10^3/ul MPV 7.6 (7.4-10.4) um3 Neut % (Auto) 69.3 (38-83) % Lymph % (Auto) 18.4 L (25-47) % Dodge % (Auto) 9.9 H (0-7) % Eos % (Auto) 1.9 (0-6) % Baso % (Auto) 0.5 (0-2) % Absolute Neuts (auto) 7.5 (1.5-7.7) 10^3/ul Absolute Lymphs (auto) 2.0 (1.0-4.8) 10^3/ul Absolute Monos (auto) 1.1 H (0-0.8) 10^3/ul Absolute Eos (auto) 0.2 (0-0.6) 10^3/ul Absolute Basos (auto) 0.1 (0-0.2) 10^3/ul Absolute Nucleated RBC 0 10^3/ul Nucleated RBC % 0 INR (Anticoag Therapy) 1.00 (0.77-1.02) APTT 35.2 (26.0-36.3) seconds D-Dimer, Quantitative < 200 (Less Than 230) ng/mL Sodium 129 L (139-145) mmol/L Potassium 4.0 (3.5-5.0) mmol/L Chloride 96 L (101-111) mmol/L Carbon Dioxide 23 (22-32) mmol/L Anion Gap 10 (2-11) mmol/L BUN 11 (6-24) mg/dL Creatinine 0.64 (0.51-0.95) mg/dL Est GFR ( Amer) 119.8 (>60) Est GFR (Non-Af Amer) 93.1 (>60) BUN/Creatinine Ratio 17.2 (8-20) Glucose 89 (70-100) mg/dL Lactic Acid (0.5-2.0) mmol/L Calcium 8.8 (8.6-10.3) mg/dL Magnesium 1.7 L (1.9-2.7) mg/dL Total Bilirubin 0.30 (0.2-1.0) mg/dL AST 12 L (13-39) U/L ALT 9 (7-52) U/L Alkaline Phosphatase 65 (34-104) U/L Total Creatine Kinase 19 (10-223) U/L CK-MB (CK-2) 1.5 (0.6-6.3) ng/mL Troponin I 0.01 (<0.04) ng/mL C-Reactive Protein 6.70 H (< 5.00) mg/L B-Natriuretic Peptide ( - 100) pg/mL Total Protein 5.8 L (6.4-8.9) g/dL Albumin 3.1 L (3.2-5.2) g/dL Globulin 2.7 (2-4) g/dL Albumin/Globulin Ratio 1.1 (1-3) TSH 0.03 L (0.34-5.60) mcIU/mL 18 09/29/17 Range/Units 17:07 17:07 WBC (3.5-10.8) 10^3/ul RBC (4.0-5.4) 10^6/ul Hgb (12.0-16.0) g/dl Hct (35-47) % MCV (80-97) fL MCH (27-31) pg MCHC (31-36) g/dl RDW (10.5-15) % Plt Count (150-450) 10^3/ul MPV (7.4-10.4) um3 Neut % (Auto) (38-83) % Lymph % (Auto) (25-47) % Dodge % (Auto) (0-7) % Eos % (Auto) (0-6) % Baso % (Auto) (0-2) % Absolute Neuts (auto) (1.5-7.7) 10^3/ul Absolute Lymphs (auto) (1.0-4.8) 10^3/ul Absolute Monos (auto) (0-0.8) 10^3/ul Absolute Eos (auto) (0-0.6) 10^3/ul Absolute Basos (auto) (0-0.2) 10^3/ul Absolute Nucleated RBC 10^3/ul Nucleated RBC % INR (Anticoag Therapy) (0.77-1.02) APTT (26.0-36.3) seconds D-Dimer, Quantitative (Less Than 230) ng/mL Sodium (139-145) mmol/L Potassium (3.5-5.0) mmol/L Chloride (101-111) mmol/L Carbon Dioxide (22-32) mmol/L Anion Gap (2-11) mmol/L BUN (6-24) mg/dL Creatinine (0.51-0.95) mg/dL Est GFR ( Amer) (>60) Est GFR (Non-Af Amer) (>60) BUN/Creatinine Ratio (8-20) Glucose (70-100) mg/dL Lactic Acid 0.7 (0.5-2.0) mmol/L Calcium (8.6-10.3) mg/dL Magnesium (1.9-2.7) mg/dL Total Bilirubin (0.2-1.0) mg/dL AST (13-39) U/L ALT (7-52) U/L Alkaline Phosphatase (34-104) U/L Total Creatine Kinase (10-223) U/L CK-MB (CK-2) (0.6-6.3) ng/mL Troponin I (<0.04) ng/mL C-Reactive Protein (< 5.00) mg/L B-Natriuretic Peptide 324 H ( - 100) pg/mL Total Protein (6.4-8.9) g/dL Albumin (3.2-5.2) g/dL Globulin (2-4) g/dL Albumin/Globulin Ratio (1-3) TSH (0.34-5.60) mcIU/mL Result Diagrams: 09/29/17 17:07 09/29/17 17:07 Lab Statement: Any lab studies that have been ordered have been reviewed, and results considered in the medical decision making process. - Radiology CXR Radiology Interpretation Completed By: Radiologist - POSTSURGICAL CHANGE. NO ACTIVE CARDIOPULMONARY DISEASE. ED Physician has reviewed this report. - EKG 1708 Cardiac Rate: NL EKG Rhythm: Sinus Rhythm - 86 BPM EKG Interpretation: LVH, ST elevation in anterior leads EKG Comparison: No Significant Change - 09/26/17 Course/Dx - Course Course Of Treatment: IMPROVED IN ED. DISCUSSED RESULTS WITH PATIENT. F/U PMD; RETURN IF WORSE. - Diagnoses Provider Diagnoses: COPD (chronic obstructive pulmonary disease), Dyspnea, Hypomagnesemia, Hyperthyroidism Discharge - Sign-Out/Discharge Documenting (check all that apply): Discharge/Admit/Transfer - Discharge Plan Condition: Stable Disposition: HOME Patient Education Materials: Dyspnea (ED), COPD (Chronic Obstructive Pulmonary Disease) (ED), Hypomagnesemia (ED), Hyperthyroidism (ED) Referrals: Guerrero Gtz QUALITY ASSURANCE COORDINATOR [Primary Care Provider] - Additional Instructions: FOLLOW UP WITH YOUR DOCTOR. RETURN TO THE EMERGENCY DEPARTMENT FOR ANY WORSENING OF YOUR CONDITION OR QUESTIONS OR CONCERNS. - Billing Disposition and Condition Condition: STABLE Disposition: HOME The documentation as recorded by the Elliot crawford Julia accurately reflects the service I personally performed and the decisions made by me, Tony Wilcox MD.
[2017-09-29 20:16] VITALS: BP 130/77
== END 2017-09-29 20:17 | disposition home or self-care (01) ==
LOC: ED 16:43
DX: J44.9 Chronic obstructive pulmonary disease, unspecified (principal); R06.00 Dyspnea, unspecified; E83.42 Hypomagnesemia; E05.90 Thyrotoxicosis, unspecified without thyrotoxic crisis or storm; R05 Cough; R50.9 Fever, unspecified; R07.9 Chest pain, unspecified; R06.02 Shortness of breath; F17.210 Nicotine dependence, cigarettes, uncomplicated
CPT/HCPCS: 36415; 71045; 80053; 82550; 82553; 83605; 83735; 83880; 84439; 84443; 84479; 84484; 85025; 85379; 85610; 85730; 86140; 93005; 96374; 99283; A9270-GY; J2930; J3475

== ENCOUNTER 2017-10-02 22:52 | Inpatient (IN) | payer MEDICARE, BC ==
[2017-10-02] MEDS ORDERED: NS 0.9% 1000 ML* 1,000 ML IV ONE (23:32)
[2017-10-02] MEDS ORDERED: LORazepam INJ* 2 MG/ML 1 ML VIAL IV PUSH ONE (23:34)
[2017-10-03 00:11] LABS: ABS Basophils 0 10^3/ul (0-0.2); ABS Eosinophils 0 10^3/ul (0-0.6); ABS Lymphocytes 0.9 10^3/ul (1.0-4.8); ABS Monocytes 0.3 10^3/ul (0-0.8); ABS Neutrophils 5.2 10^3/ul (1.5-7.7); ABS Nucleated RBC 0 10^3/ul; Eosinophil % 0 % (0-6); Hematocrit 24 % (35-47); Hemoglobin 7.9 g/dl (12.0-16.0); Lymphocyte % 14.1 % (25-47); Mean Corpuscular HGB Conc 33 g/dl (31-36); Mean Corpuscular Hemoglobin 27 pg (27-31); Mean Corpuscular Volume 81 fL (80-97); Mean Platelet Volume 7.3 um3 (7.4-10.4); Nucleated Red Blood Cells % 0.1; Platelet Count 359 10^3/ul (150-450); Red Blood Count 2.95 10^6/ul (4.0-5.4); Red Cell Distribution Width 18 % (10.5-15); White Blood Count 6.3 10^3/ul (3.5-10.8)
[2017-10-03 00:23] LABS: INR 0.92 (0.77-1.02)
[2017-10-03 00:26] LABS: EGFR Non-African American 36.5 (>60)
--- NOTE | 2017-10-03 01:17 | ED ---
Carito Winkler Emily, scribed for Carolina Weber MD on 10/02/17 at 2335 . Psychiatric Complaint - HPI Summary HPI Summary: This patient is a 66 year old F BIBA to [facility] with a chief complaint of anxiety that began today. Symptoms aggravated by nothing. Symptoms alleviated by nothing. Patient reports vomiting, generalized weakness, and dehydration. Patient denies diarrhea. Pt reports that she suddenly realized today that she is in bad shape. - History Of Current Complaint Time Seen by Provider: 10/02/17 23:02 Hx Obtained From: Patient Onset/Duration: Sudden Onset, Lasting Hours, Still Present Timing: Constant Severity Initially: Mild Severity Currently: Mild Character: Anxious Aggravating Factor(s): Nothing Alleviating Factor(s): Nothing Related History: Positive For: Prior Psychiatric Issues - Allergies/Home Medications Allergies/Adverse Reactions: Allergies Allergy/AdvReac Type Severity Reaction Status Date / Time aspirin Allergy Severe Anaphylatic Verified 09/09/17 18:20 Shock latex Allergy Mild Rash Verified 09/09/17 18:20 PMH/Surg Hx/FS Hx/Imm Hx Previously Healthy: No Endocrine/Hematology History: Reports: Hx Thyroid Disease - hypothyroid, Other Endocrine/Hematological Disorders - Benign goiter Denies: Hx Bone Marrow Disease, Hx Diabetes, Hx Systemic Lupus Erythematosus Cardiovascular History: Reports: Hx Angina, Hx Hypercholesterolemia - was high before cancer,now off meds., Hx Hypertension, Hx Myocardial Infarction - NSTEMI , Other Cardiovascular Problems/Disorders - patent foramen ovale; Murmur, Denies: Hx Congestive Heart Failure, Hx Coronary Artery Disease, Hx Pacemaker /ICD, Hx Valvular Heart Disease Respiratory History: Reports: Hx Asthma, Hx Chronic Obstructive Pulmonary Disease (COPD), Hx Lung Cancer - Left upper lobectomy, Hx Pneumonia, Other Respiratory Problems/Disorders - lung cancer, LOBECTOMY 09/11/11, Emphysema GI History: Reports: Hx Gastroesophageal Reflux Disease, Hx Hiatal Hernia, Other GI Disorders - colitis. 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, Hx Osteoporosis, Hx Scoliosis, Other Musculoskeletal History - scoliosis Denies: Hx Rheumatoid Arthritis Sensory History: Reports: Hx Cataracts - PATIENT STATES BEGINING OF CATARACTS LEFT EYE, Hx Contacts or Glasses, Hx Hearing Problem - right Denies: Hx Hearing Aid Opthamlomology History: Reports: Hx Cataracts - PATIENT STATES BEGINING OF CATARACTS LEFT EYE, Hx Contacts or Glasses Neurological History: Reports: Hx CVA - in 05/16, Hx Headaches, Hx Migraine - Rare post menopause Psychiatric History: Reports: Hx Anxiety, Hx Depression, Hx Community Mental Health Tx, Hx Substance Abuse - opioids Denies: Hx Panic Disorder, Hx Inpatient Treatment - Cancer History Cancer Type, Location and Year: LUNG CA, DIAGNOSED July 2012 Hx Chemotherapy: Yes Hx Radiation Therapy: No Hx Palliative Cancer Treatment: No - Surgical History Surgery Procedure, Year, and Place: LEFT UPPER LUNG REMOVED 09/2012, HYSTERECTOMY , tonsillectomy Hx Anesthesia Reactions: No - Immunization History Date of Tetanus Vaccine: utd Date of Influenza Vaccine: utd Infectious Disease History: Denies: Hx of Known/Suspected MRSA - Family History Known Family History: Positive: Cardiac Disease - Sudden cardiac arrest (father) , Other - son -- glioblastoma. UC mother. Fhx of colitis. - Social History Occupation: Retired Lives: Alone Alcohol Use: None Alcohol Amount: Unknown Hx Substance Use: No Substance Use Type: Reports: None Substance Use Comment - Amount & Last Used: percocet Hx Tobacco Use: Yes Smoking Status (MU): Light Every Day Tobacco Smoker Type: Cigarettes Amount Used/How Often: 1/2 pack a day Length of Time of Smoking/Using Tobacco: 47 years Have You Smoked in the Last Year: Yes Review of Systems Positive: Other - Positive dehydration Positive: Vomiting. Negative: Diarrhea Positive: Weakness Positive: Anxious All Other Systems Reviewed And Are Negative: Yes Physical Exam - Summary Physical Exam Summary: VITAL SIGNS: Reviewed. GENERAL: ~Patient is a well-developed and nourished female who is lying comfortable in the stretcher. Patient is not in any acute respiratory distress. HEAD AND FACE: No signs of trauma. No ecchymosis, hematomas or skull depressions. No sinus tenderness. EYES: PERRLA, EOMI x 2, No injected conjunctiva, no nystagmus. EARS: Hearing grossly intact. Ear canals and tympanic membranes are within normal limits. MOUTH: Oropharynx within normal limits. NECK: Supple, trachea is midline, no adenopathy, no JVD, no carotid bruit, no c- spine tenderness, neck with full ROM. CHEST: Symmetric, no tenderness at palpation LUNGS: Clear to auscultation bilaterally. No wheezing or crackles. CVS: S1 and S2 present, Systolic murmur of the left sternal border. Tachycardic ABDOMEN: Soft, non-tender. No signs of distention. No rebound no guarding, and no masses palpated. Bowel sounds are normal. EXTREMITIES: FROM in all major joints, no edema, no cyanosis or clubbing. NEURO: Alert and oriented x 3. No acute neurological deficits. Speech is normal and follows commands. PSYCH: Patient seems anxious SKIN: Dry and warm Triage Information Reviewed: Yes Vital Signs Reviewed: Yes Diagnostics - Laboratory Result Diagrams: 10/03/17 00:01 10/03/17 00:01 Lab Statement: Any lab studies that have been ordered have been reviewed, and results considered in the medical decision making process. - Radiology CXR Radiology Interpretation Completed By: ED Physician - CXR reveals, per ED physician, no acute process and post-surgical changes - EKG 0006 Cardiac Rate: Tachycardia EKG Rhythm: Sinus Rhythm - 109 BPM EKG Interpretation: J point elevation. LVH Course/Dx - Course Course Of Treatment: This patient is a 66 year old F BIBA to [facility] with a chief complaint of anxiety that began today. Patient reports vomiting, generalized weakness, and dehydration. Labs show elevated sodium levels. - Differential Dx/Clinical Impression Provider Diagnosis: Hyponatremia, Dehydration - Physician Notifications Discussed Care Of Patient With: Megan Garcia Time Discussed With Above Provider: 00:35 Instructed by Provider To: Other - Consult with Dr. Garcia (hospitalist) at 0035. She agrees to admit pt for further evaluation. Discharge - Sign-Out/Discharge Documenting (check all that apply): Discharge/Admit/Transfer - Admit to [facility] - Discharge Plan Condition: Stable Disposition: ADMITTED TO [facility] Referrals: Guerrero Gtz, TABULATING SUPERVISOR [Primary Care Provider] - The documentation as recorded by the Carito crawford Emily accurately reflects the service I personally performed and the decisions made by me, Carolina Weber MD.
[2017-10-03] MEDS ORDERED: Magnesium Sulfate 2 GM IV* 2 GM/50 ML BAG IVPB ONE (01:57)
[2017-10-03] MEDS ORDERED: NS 0.9% 1000 ML* 1,000 ML IV SCH ×2 (02:00→10:35)
[2017-10-03 03:22] LABS: Urine Appearance Clear; Urine Blood Negative (Negative); Urine Color Yellow; Urine Ketones Trace (Negative); Urine Protein 1+(30 mg/dL) (Negative); Urine Urobilinogen Negative (Negative)
--- NOTE | 2017-10-03 07:16 | RAD ---
INDICATION: Weakness. COMPARISON: Comparison is made with a prior CT of the chest from September 10, 2017 and a prior chest x-ray study from September 29, 2017. TECHNIQUE: A portable view of the chest was obtained. FINDINGS: The heart is within normal limits in size. Several surgical clips project in the left hilar region. There is increased density in that region which is unchanged and appears related to positioning of the main pulmonary artery on the prior CT study. The lungs are underinflated and clear. No pleural effusion is seen. IMPRESSION: POST SURGICAL CHANGES, NO EVIDENCE FOR ACUTE FINDING.
--- NOTE | 2017-10-03 08:16 | HP ---
CC: Guerrero Gtz NP * HISTORY AND PHYSICAL: DATE OF ADMISSION: 10/03/17 PRIMARY CARE PROVIDER: Guerrero Gtz NP. CHIEF COMPLAINT: Feeling dehydrated and anxious. HISTORY OF PRESENT ILLNESS: Unfortunately, the patient received 0.5 mg of IV Ativan in the emergency room and at this point she is somnolent and does not arouse to painful stimulation. She is protecting her airway and maintaining her vital signs at this time. I will not reverse the effects of the Ativan at this point though she will need to be monitored very closely. The patient is unable to provide any history at this time. PAST MEDICAL HISTORY: 1. Intermittent hyponatremia. 2. COPD. 3. History of lung cancer. 4. Hypertension. 5. Hyperlipidemia. 6. Hypothyroidism. 7. Chronic pain. 8. History of PE. 9. History of opioid and benzodiazepine abuse. 10. Anxiety. 11. Coronary artery disease. 12. History of GI bleed in the setting of NSAID use. 13. History of CVA with residual left arm weakness. PAST SURGICAL HISTORY: 1. Left upper lobectomy. 2. Tonsillectomy. 3. Hysterectomy. MEDICATIONS: This is based on previous discharge on 09/28/17. 1. Sodium chloride 1 g p.o. daily. 2. Seroquel 100 mg p.o. q.h.s. 3. Omeprazole 40 mg p.o. b.i.d. 4. Metoprolol XL 25 mg p.o. daily. 5. Magnesium oxide 400 mg p.o. daily. 6. Levothyroxine 175 mcg p.o. daily. 7. Ipratropium 1 neb inhaled 4 times daily p.r.n. shortness of breath. 8. Gabapentin 300 mg p.o. t.i.d. p.r.n. pain. 9. Flovent 1 puff inhaled twice daily. 10. Colace 200 mg p.o. b.i.d. 11. Diltiazem CD 120 mg p.o. daily. 12. Duloxetine DR 60 mg p.o. daily. 13. Plavix 75 mg p.o. daily. 14. Vitamin D 2000 units p.o. daily. 15. Lipitor 40 mg p.o. daily. 16. Eliquis 5 mg p.o. b.i.d. 17. Albuterol 2 puffs inhaled q.4 hours p.r.n. shortness of breath. 18. Albuterol 1 neb inhaled q.4 hours p.r.n. shortness of breath. 19. Tylenol 650 mg p.o. q.6 hours p.r.n. pain. ALLERGIES: ASPIRIN and LATEX. FAMILY HISTORY: Based on prior history and physical, mom had a history of ulcerative colitis, dad had a history of coronary artery disease. SOCIAL HISTORY: Again, based on prior H and P, the patient is currently smoking at least 5 cigarettes per day. She does not drink alcohol. Her surrogate decision maker is her daughter, Elyssa. REVIEW OF SYSTEMS: Unobtainable from the patient as she is somnolent. PHYSICAL EXAMINATION GENERAL: The patient is a well-developed, middle-aged female, seen sleeping at approximately 45-degree angle in the stretcher, arousable only to painful stimulation where she withdraws to pain and states "ouch". She does not wake up for me. VITAL SIGNS: Blood pressure 100/73, pulse 102, respirations 20, temp 99.1, O2 sat 98% on 2 L. HEENT: Pupils are equal and round. Oropharynx is dry. The patient is mouth breathing. NECK: There is no submandibular, cervical, or supraclavicular adenopathy. Thyroid is not enlarged. No thyroid nodules are noted. PULMONARY: Lungs are clear anteriorly. CARDIAC: Normal S1 and S2. Heart rate is mildly tachycardic. There is a 3/6 systolic murmur, heard best at the right upper sternal border. ABDOMEN: Bowel sounds are present. Abdomen is soft, nondistended. MUSCULOSKELETAL: The patient does not spontaneously move any of her extremities. She does withdraw to pain. SKIN: Warm and dry. NEUROLOGIC: The patient is not alert to cooperate with exam. PSYCH: The patient is not alert to cooperate with exam. DIAGNOSTIC STUDIES/LAB DATA: WBC 6.3, hemoglobin 7.9, hematocrit 24, platelets 359. INR 0.92. Sodium 117, potassium 3.9, chloride 86, CO2 of 19, BUN 29, creatinine 1.44, glucose 222, lactic acid 3.6, calcium 8.4, magnesium 1.5. Bilirubin 0.3, AST 12, ALT 8, alk phos 67. CRP 2.36. BNP 97. Albumin 3.4. Amylase 66, lipase 21. EKG reveals sinus tachycardia, without any acute ST-T wave abnormalities, mild ST elevation in the anterior leads, but this is unchanged from prior EKG. Chest x-ray appears clear and unchanged from prior. ASSESSMENT AND PLAN: Ms. Glover is a 66-year-old female who is being admitted for 10th time just this year for hyponatremia. 1. Hyponatremia. The patient has had intermittent issues with hyponatremia. Her sodium currently is lower than it has been in the past. I suspect she is volume depleted as she is in acute renal failure. The patient received 1 L of normal saline bolus in the emergency room. She will continue on normal saline at 75 mL per hour. Repeat sodium level will be obtained now. Repeat lactic acid will also be obtained. The elevated lactic acid I suspect is secondary to volume depletion. I am very concerned at this point that the patient can no longer care for herself at home. The patient was just discharged from the hospital on 09/28/17, within just 4 days she is now requiring repeat admission. 2. Acute renal failure. Again, I suspect this is secondary to volume depletion. Her basic metabolic panel will be followed at 8 a.m. The patient will be receiving normal saline as above. 3. Lactic acidosis. This has now resolved after 1 L of normal saline in the emergency room. 4. Chronic obstructive pulmonary disease. There are no signs of exacerbation. The patient will continue on supplemental oxygen. 5. Chronic pain/migraines. Continue p.r.n. Tylenol. 6. Atrial fibrillation. The patient is in normal sinus rhythm. She will continue on her metoprolol XL, but I will hold her Diltiazem CD as her blood pressure is slightly low. She will continue on Eliquis. 7. Hypothyroidism. We will continue Synthroid at home dose. 8. DVT prophylaxis. According to the Adult Thrombosis Prophylaxis Risk Factor Assessment Guide, the patient has a total risk factor score of 8 making her high risk. Eliquis will be continued as DVT prophylaxis. 9. Code status is full. TIME SPENT: Forty minutes were spent admitting this patient. [id number]/[facility] #: [id number]
[2017-10-03] MEDS: Metoprolol Succinate XL TAB* 50 MG PO SCH ×2 (08:33→14:46)
[2017-10-03] MEDS: Apixaban* 5 MG TAB PO SCH ×2 (08:33→20:44)
[2017-10-03] MEDS: Clopidogrel TAB* 75 MG PO SCH ×2 (08:33→14:46)
[2017-10-03] MEDS: Cholecalciferol TAB* 1000 UNITS PO SCH (08:33)
[2017-10-03] MEDS: Sodium Chloride TAB* 1 GM PO SCH ×2 (08:33→14:46)
[2017-10-03] MEDS: DULoxetine DR CAP* 60 MG CAP.DR PO SCH (08:33)
[2017-10-03] MEDS: Docusate CAP* 100 MG PO SCH ×3 (08:33→21:11)
[2017-10-03] MEDS: CMCS:Pantoprazole TAB (NF) 40 MG TAB PO SCH ×2 (08:33→20:44)
[2017-10-03] MEDS: Levothyroxine TAB* 175 MCG TAB PO SCH ×2 (08:33→14:46)
[2017-10-03] MEDS: Magnesium Oxide TAB* 400 MG PO SCH ×2 (08:33→14:46)
[2017-10-03 08:52] LABS: EGFR Non-African American 55.6 (>60)
--- NOTE | 2017-10-03 08:56 | RAD ---
INDICATION: Hyponatremia altered mental status. COMPARISON: Comparison is made with a prior CT of the brain from September 04, 2017. TECHNIQUE: Contiguous axial sections of the brain were obtained from the skull base to the vertex without contrast. The exam is slightly limited due to motion artifact. FINDINGS: The ventricles, cisterns and sulci are enlarged consistent with diffuse atrophy. There are multiple focal areas of decreased density in the subcortical and periventricular white matter suggestive of moderate chronic small vessel ischemic changes. There is a small focal area of encephalomalacia present in the cortex and subcortical white matter in the posterior right frontal lobe most consistent with an old infarct which is unchanged. No mass effect is present. There is no evidence for hemorrhage. There is mucosal thickening and small air-fluid levels within the maxillary sinuses. The sinuses and mastoid air cells otherwise appear clear. IMPRESSION: 1. SLIGHTLY LIMITED EXAM DUE TO MOTION ARTIFACT. 2. NO EVIDENCE FOR GROSS ACUTE INFARCT, MASS EFFECT OR HEMORRHAGE. 3. 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 4. FINDINGS SUGGESTIVE OF MODERATE CHRONIC SMALL VESSEL ISCHEMIC CHANGES. 5. SMALL AIR-FLUID LEVELS WITHIN THE RIGHT MAXILLARY SINUSES RAISING THE POSSIBILITY OF ACUTE SINUSITIS.
[2017-10-03] MEDS ORDERED: NS 0.9% 1000 ML* 1,000 ML IV ONE (10:35)
--- NOTE | 2017-10-03 12:04 | CONSULT ---
Consult Consult: CRITICAL CARE MEDICINE DATE: 10/03/17 TIME: 1100 REFERRING PROVIDER: Nilesh REASON/CHIEF COMPLAINT: encephalopathy HISTORY OF PRESENT ILLNESS: 66 yo F, known to hospitalist service for multiple admits, representing with acute on chronic hyponatremia, benzo od issues, mild encephalopathy which seemed to worsen during stay with now transfer to ICU for concern for worsening resp failure contributing to status. ABG not overly pronounced and more metabolic acidosis with lack of appropriate compensation vs mixed with resp acidosis as well. she response to noxious stimuli and appropriately approached stimuli. Resp therapy conveyed in the past how patient would "sleep off" a few days during her stay. Whether psychological component or not. Regardless, in icu now for acute bipap and na follow and slow correction. REVIEW OF SYSTEMS: Limited sec to acuity. PAST MEDICAL HISTORY: Reviewed per records as pt unable to provide. MEDICATIONS: Reviewed. ALLERGIES: asa, latex SOCIAL HISTORY: Reviewed per records. FAMILY HISTORY: Noncontributory at present. PHYSICAL EXAM: Vital Signs: Reviewed. Hr 90s. bp stable. rr teens. on bipap now [place] fine. Neurologic: again, response to noxious stimuli and appropriately approached stimuli. valentine with this and moans. HEENT: anicteric. pupils eq and reactive. Cardiovascular: warm, s1s2 Respiratory: relatively clear bl; bipap Abdomen: soft, nt Extremities: warm Access: piv LABS: Reviewed. Na 120. cr down to 1, still above baseline. IMAGING: Reviewed. CT with no acute dz MEDICATIONS: Reviewed. ASSESSMENT: 66 F toxic and metabolic encephalopathy acute on chronic hyponatremia acute hypoxic resp failure Acute renal failure on admission Metabolic acidosis PLAN: Neurologic: likely combination of toxic and metabolic encephalopathy. can slowly correct na over next 24hrs with NS. no need for 3% at this time. allow benzo clearance. toxic screen pending. ct head ok. no seizure appearance. needs time. Cardiovascular: perfusing. intravasc vol holding but needs NaCl repletion. continue cardiac regimen. Respiratory: bipap for a bit to enusre this issue not harming and then can resume NC. clincal follow Gastrointestinal: npo for now. sup Renal/Metabolic: had reza on admission which seems to be correcting with fluid. continue and follow up na later today. mild non-ag acidosis lingering and f/u clearance; post la clearance already achieved. samaniego ok for now. Infectious Disease: no infective signs. Hematology: chronic f/u Endocrine: glu up- reactive on admission. f/u. outpt t4 replacement. Musculoskeletal: skin precautions. Psych/Social: social f/u Supportive and preventative care as ordered. SUP: ppi VTE prophylaxis: heparin Samaniego catheter given critical illness, monitoring needs for accurate assessment of REZA and KDIGO criteria for critically ill patients and to avoid potential harms of urinary retention, skin breakdown/ulcers. Disposition: ICU today Code Status: Full Critical Care Time: 38min D/w Hospitalist. Rehana Franklin DO
--- NOTE | 2017-10-03 16:56 | PN ---
Subjective Date of Service: 10/03/17 Interval History: Patient examined this AM and had deep sonorous respirations with hypoxia, minimal responsiveness only to painful stimuli. Transferred to ICU to put on BiPAP due to acidosis on ABG. Also had persistent hyponatremia on BMP. Became more responsive to painful stimuli and then verbal stimuli as day progressed. Taken off BiPAP. Still unable to provide substantive history or complaints. Family History: Unchanged from Admission Social History: Unchanged from Admission Past Medical History: Unchanged from Admission Objective Active Medications: Acetaminophen (Tylenol Tab*) 650 mg PO Q6H PRN PRN Reason: FEVER/PAIN Albuterol (Ventolin 2.5 Mg/3 Ml Neb.Tracey*) 2.5 mg INH Q4H PRN PRN Reason: SOB/WHEEZING Apixaban (Eliquis*) 5 mg PO BID [facility] Last Admin: 10/03/17 08:33 Dose: Not Given Atorvastatin Calcium (Lipitor*) 40 mg PO 1700 [facility] Cholecalciferol (Vitamin D Tab*) 2,000 units PO DAILY [facility] Last Admin: 10/03/17 08:33 Dose: Not Given Clopidogrel Bisulfate (Plavix Tab*) 75 mg PO DAILY [facility] Last Admin: 10/03/17 14:46 Dose: 75 mg Docusate Sodium (Colace Cap*) 200 mg PO BID [facility] Last Admin: 10/03/17 08:33 Dose: Not Given Duloxetine HCl (Cymbalta Cap*) 60 mg PO DAILY [facility] Last Admin: 10/03/17 08:33 Dose: Not Given Gabapentin (Neurontin Cap(*)) 300 mg PO TID PRN PRN Reason: PAIN Sodium Chloride (Ns 0.9% 1000 Ml*) 1,000 mls @ 125 mls/hr IV PER RATE [facility]END[facility] TO [facility] Ipratropium [place] (Atrovent 0.5 Mg Neb.Tracey*) 0.5 mg INH QID PRN PRN Reason: SOB/WHEEZING Levothyroxine Sodium (Synthroid Tab*) 175 mcg PO DAILY@0600 [facility] Last Admin: 10/03/17 14:46 Dose: 175 mcg Magnesium Oxide (Magox 400 Tab*) 400 mg PO DAILY [facility] Last Admin: 10/03/17 14:46 Dose: 400 mg Metoprolol Succinate (Toprol Xl Tab*) 25 mg PO DAILY [facility] Last Admin: 10/03/17 14:46 Dose: 25 mg Mometasone Furoate (Asmanex 220 Mcg Mdi *) 2 puff INH QPM [facility] Pantoprazole Sodium (Protonix Tab (Nf)) 40 mg PO BID [facility] Last Admin: 10/03/17 08:33 Dose: Not Given Sodium Chloride (Sodium Chloride Tab*) 1 gm PO DAILY [facility] Last Admin: 10/03/17 14:46 Dose: 1 gm Vital Signs - 8 hr 10/03/17 10/03/17 10/03/17 09:10 09:57 10:00 Temperature Pulse Rate 67 95 99 Respiratory 18 23 Rate Blood Pressure 115/75 130/77 (mmHg) O2 Sat by Pulse 91 92 93 Oximetry 10/03/17 10/03/17 10/03/17 10:01 10:04 10:15 Temperature 97 F Pulse Rate 101 93 107 Respiratory 19 19 20 Rate Blood Pressure 130/77 130/84 (mmHg) O2 Sat by Pulse 99 93 98 Oximetry 10/03/17 10/03/17 10/03/17 10:44 11:00 11:01 Temperature Pulse Rate 92 89 89 Respiratory 18 18 18 Rate Blood Pressure 124/71 102/68 (mmHg) O2 Sat by Pulse 96 98 97 Oximetry 10/03/17 10/03/17 10/03/17 11:05 11:30 11:36 Temperature 96.9 F Pulse Rate 89 Respiratory 18 17 Rate Blood Pressure 119/75 (mmHg) O2 Sat by Pulse 96 Oximetry 10/03/17 10/03/17 10/03/17 12:00 12:01 12:05 Temperature Pulse Rate 92 92 Respiratory 19 17 15 Rate Blood Pressure 124/86 (mmHg) O2 Sat by Pulse 95 96 Oximetry 10/03/17 10/03/17 10/03/17 12:30 13:00 13:07 Temperature Pulse Rate 91 93 Respiratory 14 17 18 Rate Blood Pressure 156/82 113/69 (mmHg) O2 Sat by Pulse 100 97 Oximetry 10/03/17 10/03/17 10/03/17 13:30 14:00 14:01 Temperature Pulse Rate 94 101 105 Respiratory 18 30 25 Rate Blood Pressure 123/77 148/91 (mmHg) O2 Sat by Pulse 100 92 100 Oximetry 10/03/17 10/03/17 10/03/17 14:02 14:30 14:50 Temperature Pulse Rate 99 Respiratory 20 20 17 Rate Blood Pressure 158/99 (mmHg) O2 Sat by Pulse 98 Oximetry 10/03/17 10/03/17 10/03/17 15:00 15:45 16:00 Temperature Pulse Rate 98 85 Respiratory 19 24 20 Rate Blood Pressure 160/102 145/90 (mmHg) O2 Sat by Pulse 95 99 Oximetry 10/03/17 16:47 Temperature Pulse Rate Respiratory 16 Rate Blood Pressure (mmHg) O2 Sat by Pulse Oximetry Oxygen Devices in Use Now: Nasal Cannula Appearance: Patient is a 66yo female who appears older than stated age in the bed with slow and sonorous respirations. Eyes: No Scleral Icterus, - - Pupils 6mm and minimally responsive to light. Decreased to 4mm on repeat exam with response to 3mm. Ears/Nose/Mouth/Throat: NL Teeth, Lips, Gums, Clear Oropharnyx, Mucous Membranes Moist Neck: NL Appearance and Movements; NL JVP, Trachea Midline Respiratory: Symmetrical Chest Expansion and Respiratory Effort, - - Wheezing heard in all lobes B/L. Improved after bronchodilator. Cardiovascular: NL Sounds; No Murmurs; No JVD, RRR, No Edema Abdominal: NL Sounds; No Tenderness; No Distention, No Hepatosplenomegaly Lymphatic: No Cervical Adenopathy Extremities: No Edema, No Clubbing, Cyanosis Skin: No Rash or Ulcers, No Nodules or Sclerosis Neurological: - - Responsive only to painful stimuli, improved and able to mumble and provide minimal response later in day. Reflexes hyperactive on left side, normal on right. Consistent with previous exam. Result Diagrams: 10/03/17 00:01 10/03/17 15:43 Assess/Plan/Problems-Billing Assessment: - Patient Problems (1) Hyponatremia Current Visit: No Status: Chronic Priority: Medium Code(s): E87.1 - HYPO- OSMOLALITY AND HYPONATREMIA SNOMED Code(s): 64356035 Comment: Sodium 117 on admission. Given NS. Likely dehydrated. Improving rapidly, now 125 with increase in responsiveness. Continue fluids at decreased rate and salt tabs when able. Seizure precautions Appreciate soda dialyzer input. (2) Altered mental status Current Visit: Yes Status: Acute Code(s): R41.82 - ALTERED MENTAL STATUS, UNSPECIFIED SNOMED Code(s): 996758806 Comment: Unknown cause, Improving. Likely multifactorial from Benzos, Acidosis, and Hyponatremia. Able to get off BiPAP, Sodium improving. Now responsive to voice. (3) Anemia Current Visit: No Status: Acute Priority: High Code(s): D64.9 - ANEMIA, UNSPECIFIED SNOMED Code(s): 795588950 Comment: Chronic, unknown cause, Likely Anemia of Chronic Disease and Iron deficiency. Recent history of GI bleed. At baseline but patient was dehydrated to an uncertain degree on admission. Will monitor. (4) Anxiety Current Visit: No Status: Acute Code(s): F41.9 - ANXIETY DISORDER, UNSPECIFIED SNOMED Code(s): 04455973 Comment: Presenting complaint. Got Ativan in ED. unable to assess currently. Continue cymbalta. Hold Seroquel for AMS. Hx of benzo abuse problems in the past (5) Hypoxia Current Visit: Yes Status: Acute Code(s): R09.02 - HYPOXEMIA SNOMED Code(s ): 578813988 Comment: Hypoxia this AM with hypercarbia. Likely due to hypoventilation from depressed respiratory drive, possibly from benzos. Was on BiPAP, improved. Appreciate soda dialyzer consult. (6) H/O: CVA (cerebrovascular accident) Current Visit: No Status: Acute Code(s): Z86.73 - PRSNL HX OF TIA (TIA), AND CEREB INFRC W/O RESID DEFICITS SNOMED Code(s): 810335525 Comment: Significant residual left sided weakness. Continue atorvastatin, eliquis and plavix (7) Safety awareness deficit Current Visit: No Status: Acute Priority: High Code(s): WYC7791 - SNOMED Code(s): 416554303 Comment: Patient states she does well at home but is admitted repeatedly due to inability to cope at home. Recommend [facility] or SNF at D/C (8) Afib Current Visit: No Status: Chronic Code(s): I48.91 - UNSPECIFIED ATRIAL FIBRILLATION SNOMED Code(s): 27292012 Comment: Continue diltiazem and eliquis. In Sinus on EKG. (9) CAD (coronary artery disease) Current Visit: No Status: Chronic Priority: High Code(s): I25.10 - ATHSCL HEART DISEASE OF [place] CORONARY ARTERY W/O ANG PCTRS SNOMED Code(s): 32360000 Comment: Stable, no chest pain known CAD with lesion of LAD and total occlusion of posterior decending artery, not stentable Continue beta luis f, plavix, statin, and cardizem and telemetry (10) GERD (gastroesophageal reflux disease) Current Visit: No Status: Chronic Code(s): K21.9 - GASTRO-ESOPHAGEAL REFLUX DISEASE WITHOUT ESOPHAGITIS SNOMED Code(s): 879628516 Comment: Continue Pantoprazole BID (11) History of lung cancer Current Visit: No Status: Chronic Priority: High Code(s): Z85.118 - PERSONAL HISTORY OF MALIGNANT NEOPLASM OF [place] AND LUNG SNOMED Code(s): 017716851 Comment: Needs f/u ct on discharge, previous ct in Dec with small nodule. Follows with Dr. Cloud. Unable to go to appointments due to being hospitalized multiple times. Hyponatremia not likely from SIADH due to lung cancer. (12) Hypertension Current Visit: No Status: Chronic Code(s): I10 - ESSENTIAL (PRIMARY) HYPERTENSION SNOMED Code(s): 55995912 Comment: Intermittently well controlled, continue metoprolol, diltiazem. (13) Hypothyroidism Current Visit: No Status: Chronic Code(s): E03.9 - HYPOTHYROIDISM, UNSPECIFIED SNOMED Code(s): 63105198 Comment: - Continue synthroid 175 mcg daily (14) DVT prophylaxis Current Visit: No Status: Acute Code(s): DKZ8683 - SNOMED Code(s): 716005166 Comment: Continue eliquis Status and Disposition: Inpatient in ICU.
[2017-10-03] MEDS: Acetaminophen TAB* 325 MG PO PRN (20:44)
[2017-10-03] MEDS: Mometasone 220 MCG MDI INH SCH (20:54)
[2017-10-03] MEDS: Atorvastatin* 40 MG TAB PO SCH (21:11)
[2017-10-04] MEDS: Acetaminophen TAB* 325 MG PO PRN ×4 (03:48→23:43)
[2017-10-04] MEDS: Levothyroxine TAB* 175 MCG TAB PO SCH (05:37)
[2017-10-04 07:24] LABS: Hematocrit 25 % (35-47); Hemoglobin 8.5 g/dl (12.0-16.0); Mean Corpuscular HGB Conc 34 g/dl (31-36); Mean Corpuscular Hemoglobin 28 pg (27-31); Mean Corpuscular Volume 82 fL (80-97); Mean Platelet Volume 7.8 um3 (7.4-10.4); Platelet Count 431 10^3/ul (150-450); Red Blood Count 3.08 10^6/ul (4.0-5.4); Red Cell Distribution Width 18 % (10.5-15); White Blood Count 9.1 10^3/ul (3.5-10.8)
[2017-10-04] MEDS: Docusate CAP* 100 MG PO SCH ×2 (08:28→19:37)
[2017-10-04 09:20] LABS: Monocytes % 11 % (0-7)
[2017-10-04] MEDS: Clopidogrel TAB* 75 MG PO SCH (09:25)
[2017-10-04] MEDS: CMCS:Pantoprazole TAB (NF) 40 MG TAB PO SCH ×2 (09:25→20:53)
[2017-10-04] MEDS: DULoxetine DR CAP* 60 MG CAP.DR PO SCH (09:25)
[2017-10-04] MEDS: Magnesium Oxide TAB* 400 MG PO SCH (09:25)
[2017-10-04] MEDS: Apixaban* 5 MG TAB PO SCH ×2 (09:25→20:53)
[2017-10-04] MEDS: Metoprolol Succinate XL TAB* 50 MG PO SCH (09:25)
[2017-10-04] MEDS: Sodium Chloride TAB* 1 GM PO SCH (09:25)
[2017-10-04] MEDS: Cholecalciferol TAB* 1000 UNITS PO SCH (09:25)
--- NOTE | 2017-10-04 09:31 | PN ---
Subjective Date of Service: 10/04/17 Interval History: Pt seen and evaluated at the bedside. She is A+O x3. She states she doesnt remember how she got to the hospital and doesnt remember yesterday. Per ER doc notes she came in stating she was very anxious. Pt today reports she always has intermittent anxiety but again she doesnt remember the details of how she got to the hospital. She agrees that she may need subacute rehab prior to going home and is "open to going back to [facility] for rehab" but does not feel that needs assisted living. When discussing concern over her frequent hospitalizations and that it is felt she doesnt manage her medications correctly at home and is having a hard time caring for herself she responds that she will not go to assisted living and believes this is all from "not being in rehab long enough". The [facility] called our case management specialist and stated that there was someone in her home everyday since discharge and the patient has been refusing to take her medication. She currently reports NELSON and requests Tramadol stating "just one, just give me one dose" - we discussed her hx of chronic HAs and that it was felt per neurology that it is very possible these are secondary to rebound headaches due to the medication use - she states again "I just need one dose I am in so much pain" - while she is stating this she does not look like she is in pain distress and is currently buttering her toast eating her breakfast. She denies vision changes, weakness, numbness. No SOB/CP. No abdominal pain. She c/o the samaniego catheter and would like it removed. Family History: Unchanged from Admission Social History: Unchanged from Admission Past Medical History: Unchanged from Admission Objective Active Medications: Acetaminophen (Tylenol Tab*) 650 mg PO Q6H PRN PRN Reason: FEVER/PAIN Last Admin: 10/04/17 03:48 Dose: 650 mg Albuterol (Ventolin 2.5 Mg/3 Ml Neb.Tracey*) 2.5 mg INH Q4H PRN PRN Reason: SOB/WHEEZING Apixaban (Eliquis*) 5 mg PO BID [facility] Last Admin: 10/04/17 09:25 Dose: 5 mg Atorvastatin Calcium (Lipitor*) 40 mg PO 1700 [facility] Last Admin: 10/03/17 21:11 Dose: Not Given Cholecalciferol (Vitamin D Tab*) 2,000 units PO DAILY [facility] Last Admin: 10/04/17 09:25 Dose: 2,000 units Clopidogrel Bisulfate (Plavix Tab*) 75 mg PO DAILY [facility] Last Admin: 10/04/17 09:25 Dose: 75 mg Docusate Sodium (Colace Cap*) 200 mg PO BID [facility] Last Admin: 10/04/17 08:28 Dose: Not Given Duloxetine HCl (Cymbalta Cap*) 60 mg PO DAILY [facility] Last Admin: 10/04/17 09:25 Dose: 60 mg Gabapentin (Neurontin Cap(*)) 300 mg PO TID PRN PRN Reason: PAIN Ipratropium [place] (Atrovent 0.5 Mg Neb.Tracey*) 0.5 mg INH QID PRN PRN Reason: SOB/WHEEZING Levothyroxine Sodium (Synthroid Tab*) 175 mcg PO DAILY@0600 [facility] Last Admin: 10/04/17 05:37 Dose: 175 mcg Magnesium Oxide (Magox 400 Tab*) 400 mg PO DAILY [facility] Last Admin: 10/04/17 09:25 Dose: 400 mg Metoprolol Succinate (Toprol Xl Tab*) 25 mg PO DAILY [facility] Last Admin: 10/04/17 09:25 Dose: 25 mg Mometasone Furoate (Asmanex 220 Mcg Mdi *) 2 puff INH QPM [facility] Last Admin: 10/03/17 20:54 Dose: 2 puff Pantoprazole Sodium (Protonix Tab (Nf)) 40 mg PO BID [facility] Last Admin: 10/04/17 09:25 Dose: 40 mg Sodium Chloride (Sodium Chloride Tab*) 1 gm PO DAILY [facility] Last Admin: 10/04/17 09:25 Dose: 1 gm Vital Signs - 8 hr 10/04/17 10/04/17 10/04/17 02:00 02:01 03:00 Temperature Pulse Rate Respiratory 21 21 16 Rate Blood Pressure 149/83 150/96 (mmHg) O2 Sat by Pulse 97 96 94 Oximetry 10/04/17 10/04/17 10/04/17 03:01 03:57 04:00 Temperature Pulse Rate Respiratory 23 18 26 Rate Blood Pressure 157/97 (mmHg) O2 Sat by Pulse 96 95 Oximetry 10/04/17 10/04/17 10/04/17 04:01 04:21 05:00 Temperature 97.0 F Pulse Rate Respiratory 10 25 Rate Blood Pressure 161/99 (mmHg) O2 Sat by Pulse 95 96 Oximetry 10/04/17 10/04/17 10/04/17 05:01 05:57 06:00 Temperature Pulse Rate 82 Respiratory 24 20 21 Rate Blood Pressure 170/90 (mmHg) O2 Sat by Pulse 95 97 Oximetry 10/04/17 10/04/17 10/04/17 07:00 07:01 08:10 Temperature 99.7 F Pulse Rate 87 85 Respiratory 20 19 Rate Blood Pressure 180/95 (mmHg) O2 Sat by Pulse 95 96 Oximetry Oxygen Devices in Use Now: Nasal Cannula Appearance: 66 yo female sitting up in bed A+O x3 in NAD Eyes: No Scleral Icterus, PERRLA Ears/Nose/Mouth/Throat: NL Teeth, Lips, Gums, Mucous Membranes Moist Neck: NL Appearance and Movements; NL JVP Respiratory: Symmetrical Chest Expansion and Respiratory Effort, Clear to Auscultation Cardiovascular: NL Sounds; No Murmurs; No JVD, RRR, No Edema Abdominal: NL Sounds; No Tenderness; No Distention Extremities: No Edema, No Clubbing, Cyanosis Skin: No Rash or Ulcers, No Nodules or Sclerosis Neurological: Alert and Oriented x 3, NL Sensation, NL Muscle Strength and Tone Lines/Tubes/Other Access: Clean, Dry and Intact Peripheral IV Nutrition: Taking PO's Result Diagrams: 10/04/17 06:23 10/04/17 06:23 Microbiology and Other Data: Microbiology 10/03/17 02:25 Urine Culture - Final Urine No Growth (<1,000 CFU/mL) Assess/Plan/Problems-Billing Assessment: 66 yo female with multiple admits (10 times since may) most recent from 09/26-09/28 for tachycardia and hypotension (thought to be secondary to medication misuse) with PMH COPD, hx of lung ca s/p upper left lobectomy, CAD with known occuled RCA with medical management only, hypothyroidism, HTN, anxiety, hx of GI bleed in the setting of NSAID use, hx of CVA with left arm weakness, chronic pain, chronic NELSON's, hx of PE, of who presents with acute on chronic hyponatremia, mild encephalopathy, lactic acidosis, ARF, and later developed respiratory failure (thought to be 2nd to ativan given in ED) requiring Bipap in ICU - Patient Problems (1) Hyponatremia Comment: Acute on Chronic Sodium 117 on admission, now 132 with IVFs. Suspect secondary to dehydratation and non-compliance with PO salt tabs. Continue sodium tabs - ok to DC IVFs Appreciate paperhanger input. (2) Encephalopathy Comment: - resolved. suspect mix of toxic and metabolic - ammonia mildy high this am but close to normal range and her mental status has improved today - add on ETOH level from ED labs (3) Non-compliance Comment: - multiple hospital admission - approx 17 in the last year. It is being reported by [facility] that she is non-compliant with home meds. She has significant anxiety and has been taken off benzos in the past d/t misuse. I have asked for psych to weigh in to assess for capacity. As well, discussed with case management specialist about setting up a family meeting. (4) H/O: CVA (cerebrovascular accident) Comment: Significant residual left sided weakness. Continue atorvastatin, eliquis and plavix (5) History of pulmonary embolism Comment: c/w eliquis no PE on CTA chest (6) Anxiety Comment: - Continue seroquel and duloxetine - History of benzodiazepine abuse. Would benefit from outpatient counseling. (7) CAD (coronary artery disease) Comment: Stable, no chest pain known CAD with lesion of LAD and total occlusion of posterior decending artery, not stentable Continue beta luis f, plavix, statin, and cardizem - ok to DC tele (8) COPD (chronic obstructive pulmonary disease) Comment: - stable - With hx of lung CA, partial lobectomy and recurrent PNA - Inhalers, supportive care (9) Chronic headache Comment: - Chronic, failed many treatments in the past and abused narcotics - Will continue tylenol and gabapentin PRN - Neuro consult with Dr. Santamaria previous admission, limited options at this point given multiple comorbid conditions, MRI Brain 09/15 with no acute findings - Did not respond to valproic acid - Continue oral magnesium supplements - consider food allergy testing as an outpt - Discussed alternate measures, hot and cold packs, a little caffeine, massage and or chiropractic as an outpatient. (10) Hypertension Comment: Intermittently well controlled, continue metoprolol, diltiazem. (11) Hypothyroidism Comment: - Continue synthroid 175 mcg daily (12) DVT prophylaxis Comment: Continue eliquis Status and Disposition: Inpatient in ICU - ok to transfer to medical floor. Plan for Psych consult to assess capacity. web project manager/social work following
[2017-10-04] MEDS: Gabapentin CAP(*) 300 MG PO PRN ×3 (10:09→23:43)
[2017-10-04] MEDS ORDERED: Diltiazem CD CAP* 180 MG PO ONE (12:00)
[2017-10-04] MEDS: Albuterol 2.5 MG/3 ML NEB.SOL* (0.083%) INH PRN (13:40)
[2017-10-04] MEDS ORDERED: Albuterol HFA INHALER* 8 gm MDI INH PRN ×3 (15:04→22:29)
[2017-10-04] MEDS: Atorvastatin* 40 MG TAB PO SCH (17:00)
[2017-10-04] MEDS: Ipratropium 0.5MG/2.5ML NEB* 0.5 MG/2.5 ML NEB.SOLN INH PRN (19:41)
[2017-10-04] MEDS: Mometasone 220 MCG MDI INH SCH (19:42)
[2017-10-04] MEDS: QUEtiapine TAB* 100 MG PO SCH (20:53)
--- NOTE | 2017-10-04 23:31 | CONS ---
CONSULTATION REPORT: DATE OF CONSULT: 10/04/16 SUPERVISING PSYCHIATRIST: Dr. Gonzalez. ATTENDING PROVIDER: Madeleine Joyce NP CONSULTING PROVIDER: Catherine Evangelista NP REASON FOR CONSULT: Psychiatry was asked to see the patient and determine capacity. PSYCHIATRIC HISTORY: Ms. 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 The patient is lying in bed upon my arrival and talking with her close friend, Koki, at the bedside. The patient reports she has "no memory since Wednesday until this morning." We discussed events leading to admission. The patient had texted her friend, Koki that she was "scared." Koki then called 911 and the patient was brought to the emergency room. While in the emergency room, the patient reported complaints of anxiety. She received IV lorazepam and was eventually admitted to the ICU for altered mental status. During interview, the patient was initially irritable and defensive. She reports that she is able to care for herself and set up her own medicines especially since she is a nurse. She states that she had a CVA in March or April of last year and since that time she is adapting to left-sided weakness. She has been treated in intermediate for physical rehab. The patient reports that these stays were not long enough due to insurance coverage. She speaks highly of [facility] in [place] and wants to continue OT and PT in that establishment. She states that she currently has home care services through [facility]. She does not speak highly of the service providers and reports they are minimally effective. She was still needing more strenuous OT and PT so that she can be more independent. The patient denies suicidal ideations. She denies a history of suicide attempt. She brightens when talking about her family members, her daughter, and her grandchildren along with a grand-baby due in the fall. The patient reports a history of being in counseling due to multiple losses in her life. She is very much open to having therapy again. She identifies that transportation is difficult as she no longer drives. The patient participates fully in mini-mental status examination. She scores 30/30 with no prompting. MENTAL STATUS EXAM: The patient is sitting up in hospital bed wearing hospital gown. She is initially irritable, more cooperative as rapport was established. She is alert and oriented x3. Her attention is good. Her memory is 2/3. She recalls today, does not recall the past 2 days and is able to identify remote memory. Intellectually, she appears to be average intelligence as demonstrated through vocabulary and academic achievement. MMSE 30/30. Speech is soft and articulate. Her mood is euthymic and affect is full range. Thought process is circumstantial in regard to wanting intensive physical rehab. Thought content negative for delusions, SI, HI, or . There is no apparent perceptual disturbances at this time. Her insight and judgment are fair. ASSESSMENT: Ms. Glover is a 66-year-old white female, , lives alone. She has family and friends nearby, who seem to attend to her as much as they can. She has had multiple medical admissions since April of 2017 after sustaining a cerebrovascular accident. It is my opinion that she has full capacity at this time. DIAGNOSES: Unspecified depressive disorder, bereavement. RECOMMENDATIONS: This instructional writer spoke with the patient's attending provider, Kelsey Joyce. The patient has been willing to pursue therapy for current stressors. She will likely be transferred to a group home facility before this is able to begin. We discussed recommendations of the patient having limited medication supply, likely 1 week at a time as well as home nursing services. Otherwise, the patient is in the midst of coping with developmentally appropriate stressors along with added stressors of loss of family members and recent physical immobility. Otherwise, psychiatry has nothing further at this time. Thank you for allowing us to participate in the care of Ms. Glover. Please consult us with any further concerns. CATHERINE EVANGELISTA NP [id number]/CPS #: [id number] NICOLE
[2017-10-05] MEDS: Albuterol 2.5 MG/3 ML NEB.SOL* (0.083%) INH PRN ×2 (00:17→20:04)
[2017-10-05] MEDS: Ipratropium 0.5MG/2.5ML NEB* 0.5 MG/2.5 ML NEB.SOLN INH PRN ×2 (03:52→20:04)
[2017-10-05 05:40] LABS: ABS Basophils 0 10^3/ul (0-0.2); ABS Eosinophils 0.2 10^3/ul (0-0.6); ABS Lymphocytes 1.8 10^3/ul (1.0-4.8); ABS Monocytes 1.5 10^3/ul (0-0.8); ABS Neutrophils 5.2 10^3/ul (1.5-7.7); ABS Nucleated RBC 0 10^3/ul; Eosinophil % 2.4 % (0-6); Hematocrit 21 % (35-47); Hemoglobin 6.9 g/dl (12.0-16.0); Lymphocyte % 21.1 % (25-47); Mean Corpuscular HGB Conc 33 g/dl (31-36); Mean Corpuscular Hemoglobin 27 pg (27-31); Mean Corpuscular Volume 81 fL (80-97); Mean Platelet Volume 7.8 um3 (7.4-10.4); Nucleated Red Blood Cells % 0.1; Platelet Count 342 10^3/ul (150-450); Red Blood Count 2.56 10^6/ul (4.0-5.4); Red Cell Distribution Width 18 % (10.5-15); White Blood Count 8.7 10^3/ul (3.5-10.8)
[2017-10-05 05:56] LABS: EGFR Non-African American 62.8 (>60)
[2017-10-05] MEDS: Levothyroxine TAB* 175 MCG TAB PO SCH (06:11)
[2017-10-05] MEDS: Gabapentin CAP(*) 300 MG PO PRN ×2 (06:12→20:33)
[2017-10-05] MEDS: Acetaminophen TAB* 325 MG PO PRN ×2 (06:12→20:32)
[2017-10-05] MEDS: Metoprolol Succinate XL TAB* 50 MG PO SCH (10:36)
[2017-10-05] MEDS: Apixaban* 5 MG TAB PO SCH ×2 (10:37→20:33)
[2017-10-05] MEDS: Clopidogrel TAB* 75 MG PO SCH (10:37)
[2017-10-05] MEDS: Sodium Chloride TAB* 1 GM PO SCH (10:37)
[2017-10-05] MEDS: CMCS:Pantoprazole TAB (NF) 40 MG TAB PO SCH ×2 (10:37→20:33)
[2017-10-05] MEDS: Diltiazem CD CAP* 120 MG PO SCH (10:37)
[2017-10-05] MEDS: Docusate CAP* 100 MG PO SCH ×2 (10:37→20:34)
[2017-10-05] MEDS: Cholecalciferol TAB* 1000 UNITS PO SCH (10:38)
[2017-10-05] MEDS: DULoxetine DR CAP* 60 MG CAP.DR PO SCH (10:38)
[2017-10-05] MEDS: Magnesium Oxide TAB* 400 MG PO SCH (10:38)
--- NOTE | 2017-10-05 10:49 | PN ---
Subjective Date of Service: 10/05/17 Interval History: patient reports she feels better today but is upset she has had so many hospitalizations and states she doesn't know what to do. She doesn't remember coming in. We discussed her low sodium level and that Im guessing she is not taking her salt tablets, she first states she takes all her medications, but then did admit she wasnt taking them (as [facility] reported she is not taking them) she did admit she frequently doesnt want to take them due to she feels that they cause side effects... she does state she was licking a salt block? and thought she would get enough salt from that. We discussed assisted living and she states she doesnt want to give up her apartment but also stated she is open to ideas. She reports she "just need strength training and only needs rehab" ... I stated concerns over her being non -compliant with her medications and frequent hospitalizations and this is more than deconditioning .... patient seems to understand and she is more open to assisted living than before. We also discussed continued outpt psycho-therapy as she has had a lot of loss and I feel that she could use the support and is also still grieving her and sons. She states she would like that. Currently she denies NELSON, pain, SOB, CP. No fevers or chills. Denies any bloody stool, dark stools. No dizziness/sob (above her baseline), Family History: Unchanged from Admission Social History: Unchanged from Admission Past Medical History: Unchanged from Admission Objective Active Medications: Acetaminophen (Tylenol Tab*) 650 mg PO Q6H PRN PRN Reason: FEVER/PAIN Last Admin: 10/05/17 06:12 Dose: 650 mg Albuterol (Ventolin 2.5 Mg/3 Ml Neb.Tracey*) 2.5 mg INH Q4H PRN PRN Reason: SOB/WHEEZING Last Admin: 10/05/17 00:17 Dose: 2.5 mg Albuterol (Ventolin Hfa Inhaler*) 2 puff INH Q2HR PRN PRN Reason: SOB/WHEEZING Apixaban (Eliquis*) 5 mg PO BID [facility] Last Admin: 10/04/17 20:53 Dose: 5 mg Atorvastatin Calcium (Lipitor*) 40 mg PO 1700 [facility] Last Admin: 10/04/17 17:00 Dose: 40 mg Cholecalciferol (Vitamin D Tab*) 2,000 units PO DAILY [facility] Last Admin: 10/04/17 09:25 Dose: 2,000 units Clopidogrel Bisulfate (Plavix Tab*) 75 mg PO DAILY [facility] Last Admin: 10/04/17 09:25 Dose: 75 mg Diltiazem HCl (Cardizem Cd Cap*) 120 mg PO DAILY [facility] Docusate Sodium (Colace Cap*) 200 mg PO BID [facility] Last Admin: 10/04/17 19:37 Dose: Not Given Duloxetine HCl (Cymbalta Cap*) 60 mg PO DAILY [facility] Last Admin: 10/04/17 09:25 Dose: 60 mg Gabapentin (Neurontin Cap(*)) 300 mg PO TID PRN PRN Reason: PAIN Last Admin: 10/05/17 06:12 Dose: 300 mg Ipratropium [place] (Atrovent 0.5 Mg Neb.Tracey*) 0.5 mg INH QID PRN PRN Reason: SOB/WHEEZING Last Admin: 10/05/17 03:52 Dose: 0.5 mg Levothyroxine Sodium (Synthroid Tab*) 175 mcg PO DAILY@0600 [facility] Last Admin: 10/05/17 06:11 Dose: 175 mcg Magnesium Oxide (Magox 400 Tab*) 400 mg PO DAILY [facility] Last Admin: 10/04/17 09:25 Dose: 400 mg Metoprolol Succinate (Toprol Xl Tab*) 25 mg PO DAILY [facility] Last Admin: 10/04/17 09:25 Dose: 25 mg Mometasone Furoate (Asmanex 220 Mcg Mdi *) 2 puff INH QPM [facility] Last Admin: 10/04/17 19:42 Dose: 2 puff Pantoprazole Sodium (Protonix Tab (Nf)) 40 mg PO BID [facility] Last Admin: 10/04/17 20:53 Dose: 40 mg Quetiapine Fumarate (Seroquel Tab*) 100 mg PO BEDTIME [facility] Last Admin: 10/04/17 20:53 Dose: 100 mg Sodium Chloride (Sodium Chloride Tab*) 1 gm PO DAILY [facility] Last Admin: 10/04/17 09:25 Dose: 1 gm Vital Signs - 8 hr 10/05/17 10/05/17 10/05/17 02:43 06:12 07:10 Temperature 98.0 F 98.8 F Pulse Rate 89 72 Respiratory 20 20 16 Rate Blood Pressure 100/53 101/55 (mmHg) O2 Sat by Pulse 99 98 Oximetry Oxygen Devices in Use Now: None Appearance: chronically ill 66 yo female A+O x3 Eyes: No Scleral Icterus, PERRLA Ears/Nose/Mouth/Throat: NL Teeth, Lips, Gums, Mucous Membranes Moist Neck: NL Appearance and Movements; NL JVP Respiratory: Symmetrical Chest Expansion and Respiratory Effort, Clear to Auscultation Cardiovascular: NL Sounds; No Murmurs; No JVD, RRR, No Edema Abdominal: NL Sounds; No Tenderness; No Distention Extremities: No Edema, No Clubbing, Cyanosis Skin: No Rash or Ulcers, No Nodules or Sclerosis Neurological: Alert and Oriented x 3, NL Sensation, NL Gait, NL Muscle Strength and Tone Lines/Tubes/Other Access: Clean, Dry and Intact Peripheral IV Nutrition: Taking PO's Result Diagrams: 10/05/17 05:04 10/05/17 05:04 Microbiology and Other Data: Microbiology 10/03/17 02:25 Urine Culture - Final Urine No Growth (<1,000 CFU/mL) Assess/Plan/Problems-Billing Assessment: 66 yo female with multiple admits (10 times since may) most recent from 09/26-09/28 for tachycardia and hypotension (thought to be secondary to medication misuse) with PMH COPD, hx of lung ca s/p upper left lobectomy, CAD with known occuled RCA with medical management only, hypothyroidism, HTN, anxiety, hx of GI bleed in the setting of NSAID use, hx of CVA with left arm weakness, chronic pain, chronic NELSON's, hx of PE, of who presents with acute on chronic hyponatremia, mild encephalopathy, lactic acidosis, ARF, and later developed respiratory failure (thought to be 2nd to ativan given in ED) requiring Bipap in ICU - Patient Problems (1) Hyponatremia Comment: Acute on Chronic Sodium 117 on admission, resolving with IVFs and Na+ tabs. Suspect secondary to dehydratation and non-compliance with PO salt tabs. Continue sodium tabs - IVFs stopped 10/04, continue to monitor Appreciate manager intel input. (2) Anemia Comment: Chronic, unknown cause, Likely Anemia of Chronic Disease and Iron deficiency. Recent history of GI bleed in May inwhich the endocscopy showed gastritis. Plan to recheck HH and iron studies now. May be partial dilution from IVFs. If Hgb is <8 will transfuse d/y hx of CAD. - Pt has refused colonoscopy ini the past (recently), recommend hematology work- up as an outpt (she folllows with Dr. Cloud for hx lung ca and current lung nodule that is being followed) (3) Encephalopathy Comment: - resolved. suspect mix of toxic and metabolic - ammonia mildy high this am but close to normal range and her mental status has improved today (4) Non-compliance Comment: - multiple hospital admission - approx 17 in the last year. It is being reported by [facility] that she is non-compliant with home meds. She has significant anxiety and has been taken off benzos in the past d/t misuse. -Appreciate psych consult - the patient has capacity - no recommendation for further meds, suggested outpt therapy. - plan for family meeting with pt today (5) H/O: CVA (cerebrovascular accident) Comment: Significant residual left sided weakness. Continue atorvastatin, eliquis and plavix (6) History of pulmonary embolism Comment: c/w eliquis no PE on CTA chest (7) Anxiety Comment: - Continue seroquel and duloxetine - History of benzodiazepine abuse. Would benefit from outpatient counseling. (8) CAD (coronary artery disease) Comment: Stable, no chest pain known CAD with lesion of LAD and total occlusion of posterior decending artery, not stentable Continue beta luis f, plavix, statin, and cardizem - ok to DC tele (9) COPD (chronic obstructive pulmonary disease) Comment: - stable - With hx of lung CA, partial lobectomy and recurrent PNA - Inhalers, supportive care (10) Chronic headache Comment: - Chronic, failed many treatments in the past and abused narcotics - Will continue tylenol and gabapentin PRN - Neuro consult with Dr. Santamaria previous admission, limited options at this point given multiple comorbid conditions, MRI Brain 09/15 with no acute findings - Did not respond to valproic acid - Continue oral magnesium supplements - consider food allergy testing as an outpt - Discussed alternate measures, hot and cold packs, a little caffeine, massage as an outpatient. (11) Hypertension Comment: Intermittently well controlled, continue metoprolol, diltiazem. (12) Hypothyroidism Comment: - Continue synthroid 175 mcg daily (13) DVT prophylaxis Comment: Continue eliquis Status and Disposition: Inpatient- site safety manager/social work following. Possible assisted living if pt agrees, meeting at 2pm today
[2017-10-05] MEDS ORDERED: Magnesium Sulfate IV* 3 GM in NS 0.9% 100 ML* 100 ML IVPB ONE (11:15)
[2017-10-05 11:30] LABS: Hematocrit 22 % (35-47); Hemoglobin 7.3 g/dl (12.0-16.0); Mean Corpuscular HGB Conc 33 g/dl (31-36); Mean Corpuscular Hemoglobin 27 pg (27-31); Mean Corpuscular Volume 82 fL (80-97); Mean Platelet Volume 7.7 um3 (7.4-10.4); Platelet Count 373 10^3/ul (150-450); Red Cell Distribution Width 19 % (10.5-15); White Blood Count 8.8 10^3/ul (3.5-10.8)
[2017-10-05 11:31] LABS: ABS Basophils 0 10^3/ul (0-0.2); ABS Eosinophils 0.2 10^3/ul (0-0.6); ABS Lymphocytes 1.5 10^3/ul (1.0-4.8); ABS Monocytes 1.6 10^3/ul (0-0.8); ABS Neutrophils 5.4 10^3/ul (1.5-7.7); ABS Nucleated RBC 0 10^3/ul; Eosinophil % 2.3 % (0-6); Lymphocyte % 17.7 % (25-47); Nucleated Red Blood Cells % 0.1
[2017-10-05] MEDS: Potassium Chlor TAB* 20 MEQ TAB.ER PO SCH ×2 (12:23→19:33)
[2017-10-05] MEDS: Atorvastatin* 40 MG TAB PO SCH (19:33)
[2017-10-05] MEDS: Mometasone 220 MCG MDI INH SCH (20:06)
[2017-10-05] MEDS: QUEtiapine TAB* 100 MG PO SCH (20:33)
[2017-10-06] MEDS: Levothyroxine TAB* 175 MCG TAB PO SCH (05:55)
[2017-10-06 07:17] LABS: ABS Basophils 0 10^3/ul (0-0.2); ABS Eosinophils 0.3 10^3/ul (0-0.6); ABS Lymphocytes 1.6 10^3/ul (1.0-4.8); ABS Monocytes 1.4 10^3/ul (0-0.8); ABS Neutrophils 4.6 10^3/ul (1.5-7.7); ABS Nucleated RBC 0 10^3/ul; Eosinophil % 3.4 % (0-6); Hematocrit 26 % (35-47); Hemoglobin 8.7 g/dl (12.0-16.0); Lymphocyte % 19.9 % (25-47); Mean Corpuscular HGB Conc 33 g/dl (31-36); Mean Corpuscular Hemoglobin 28 pg (27-31); Mean Corpuscular Volume 83 fL (80-97); Mean Platelet Volume 7.9 um3 (7.4-10.4); Nucleated Red Blood Cells % 0; Platelet Count 345 10^3/ul (150-450); Red Blood Count 3.15 10^6/ul (4.0-5.4); Red Cell Distribution Width 18 % (10.5-15); White Blood Count 7.8 10^3/ul (3.5-10.8)
[2017-10-06 07:18] LABS: EGFR Non-African American 78.8 (>60)
[2017-10-06] MEDS: Diltiazem CD CAP* 120 MG PO SCH (08:32)
[2017-10-06] MEDS: Gabapentin CAP(*) 300 MG PO PRN ×2 (08:33→18:12)
[2017-10-06] MEDS: Docusate CAP* 100 MG PO SCH ×2 (08:33→19:31)
[2017-10-06] MEDS: Apixaban* 5 MG TAB PO SCH ×2 (08:33→19:31)
[2017-10-06] MEDS: DULoxetine DR CAP* 60 MG CAP.DR PO SCH (08:33)
[2017-10-06] MEDS: Metoprolol Succinate XL TAB* 50 MG PO SCH (08:34)
[2017-10-06] MEDS: Magnesium Oxide TAB* 400 MG PO SCH (08:34)
[2017-10-06] MEDS: Sodium Chloride TAB* 1 GM PO SCH (08:34)
[2017-10-06] MEDS: Acetaminophen TAB* 325 MG PO PRN ×2 (08:34→18:13)
[2017-10-06] MEDS: Cholecalciferol TAB* 1000 UNITS PO SCH (08:35)
[2017-10-06] MEDS: Clopidogrel TAB* 75 MG PO SCH (08:35)
[2017-10-06] MEDS: CMCS:Pantoprazole TAB (NF) 40 MG TAB PO SCH ×2 (08:35→19:31)
[2017-10-06] MEDS: Albuterol 2.5 MG/3 ML NEB.SOL* (0.083%) INH PRN (10:55)
--- NOTE | 2017-10-06 17:46 | DCNOTE ---
Subjective Date of Service: 10/06/17 Interval History: Patient reports she feels "pretty good today". Per nurse she c/o headache earlier and was given an ice pack with relief. Denies CP/SOB. no fevers or chills. reports good appetite. She reports she was able to walk down the hallway with PT and do well but still feels she feels weak and could use rehab. She reports she is excited about going to [facility] for rehab tomorrow. she also states she is looking forward to meeting with the assisted living staff and feels more open to assisted living than ever before. Family History: Unchanged from Admission Social History: Unchanged from Admission Past Medical History: Unchanged from Admission Objective Active Medications: Acetaminophen (Tylenol Tab*) 650 mg PO Q6H PRN PRN Reason: FEVER/PAIN Last Admin: 10/06/17 08:34 Dose: 650 mg Albuterol (Ventolin 2.5 Mg/3 Ml Neb.Tracey*) 2.5 mg INH Q4H PRN PRN Reason: SOB/WHEEZING Last Admin: 10/06/17 10:55 Dose: 2.5 mg Albuterol (Ventolin Hfa Inhaler*) 2 puff INH Q2HR PRN PRN Reason: SOB/WHEEZING Apixaban (Eliquis*) 5 mg PO BID [facility] Last Admin: 10/06/17 08:33 Dose: 5 mg Atorvastatin Calcium (Lipitor*) 40 mg PO 1700 [facility] Last Admin: 10/05/17 19:33 Dose: 40 mg Cholecalciferol (Vitamin D Tab*) 2,000 units PO DAILY [facility] Last Admin: 10/06/17 08:35 Dose: 2,000 units Clopidogrel Bisulfate (Plavix Tab*) 75 mg PO DAILY [facility] Last Admin: 10/06/17 08:35 Dose: 75 mg Diltiazem HCl (Cardizem Cd Cap*) 120 mg PO DAILY [facility] Last Admin: 10/06/17 08:32 Dose: 120 mg Docusate Sodium (Colace Cap*) 200 mg PO BID [facility] Last Admin: 10/06/17 08:33 Dose: 200 mg Duloxetine HCl (Cymbalta Cap*) 60 mg PO DAILY [facility] Last Admin: 10/06/17 08:33 Dose: 60 mg Gabapentin (Neurontin Cap(*)) 300 mg PO TID PRN PRN Reason: PAIN Last Admin: 10/06/17 08:33 Dose: 300 mg Ipratropium [place] (Atrovent 0.5 Mg Neb.Tracey*) 0.5 mg INH QID PRN PRN Reason: SOB/WHEEZING Last Admin: 10/05/17 20:04 Dose: 0.5 mg Levothyroxine Sodium (Synthroid Tab*) 175 mcg PO DAILY@0600 [facility] Last Admin: 10/06/17 05:55 Dose: 175 mcg Magnesium Oxide (Magox 400 Tab*) 400 mg PO DAILY [facility] Last Admin: 10/06/17 08:34 Dose: 400 mg Metoprolol Succinate (Toprol Xl Tab*) 25 mg PO DAILY [facility] Last Admin: 10/06/17 08:34 Dose: 25 mg Mometasone Furoate (Asmanex 220 Mcg Mdi *) 2 puff INH QPM [facility] Last Admin: 10/05/17 20:06 Dose: 2 puff Pantoprazole Sodium (Protonix Tab (Nf)) 40 mg PO BID [facility] Last Admin: 10/06/17 08:35 Dose: 40 mg Quetiapine Fumarate (Seroquel Tab*) 100 mg PO BEDTIME [facility] Last Admin: 10/05/17 20:33 Dose: 100 mg Sodium Chloride (Sodium Chloride Tab*) 1 gm PO DAILY [facility] Last Admin: 10/06/17 08:34 Dose: 1 gm Vital Signs - 8 hr 10/06/17 10/06/17 10:56 12:09 Pulse Rate 75 Respiratory 19 18 Rate O2 Sat by Pulse 97 Oximetry Oxygen Devices in Use Now: None Appearance: 66 yo chronically ill female A+O x3 in NAD Eyes: No Scleral Icterus, PERRLA Ears/Nose/Mouth/Throat: NL Teeth, Lips, Gums, Mucous Membranes Moist Respiratory: Symmetrical Chest Expansion and Respiratory Effort, Clear to Auscultation Cardiovascular: NL Sounds; No Murmurs; No JVD, RRR, No Edema Abdominal: NL Sounds; No Tenderness; No Distention, No Hepatosplenomegaly Extremities: No Edema, No Clubbing, Cyanosis, - - Left arm weakness Skin: No Rash or Ulcers, No Nodules or Sclerosis Neurological: Alert and Oriented x 3, NL Sensation, NL Muscle Strength and Tone Lines/Tubes/Other Access: Clean, Dry and Intact Peripheral IV Nutrition: Taking PO's Result Diagrams: 10/06/17 06:46 10/06/17 06:46 Microbiology and Other Data: Microbiology 10/03/17 02:25 Urine Culture - Final Urine No Growth (<1,000 CFU/mL) Assess/Plan/Problems-Billing Assessment: 66 yo female with multiple admits (10 times since may) most recent from 09/26-09/28 for tachycardia and hypotension (thought to be secondary to medication misuse) with PMH COPD, hx of lung ca s/p upper left lobectomy, CAD with known occuled RCA with medical management only, hypothyroidism, HTN, anxiety, hx of GI bleed in the setting of NSAID use, hx of CVA with left arm weakness, chronic pain, chronic NELSON's, hx of PE, of who presents with acute on chronic hyponatremia, mild encephalopathy, lactic acidosis, ARF, and later developed respiratory failure (thought to be 2nd to ativan given in ED) requiring Bipap in ICU - Patient Problems (1) Hyponatremia Comment: Acute on Chronic Sodium 117 on admission, resolved with IVFs and Na+ tabs. Suspect secondary to dehydratation and non-compliance with PO salt tabs, more so the latter. Continue sodium tabs - IVFs stopped 10/04, continue to monitor Appreciate shirt cleaner input. (2) Anemia Comment: Chronic, unknown cause, Likely Anemia of Chronic Disease and Iron deficiency. Recent history of GI bleed in May in which the endocscopy showed gastritis. Recieved 1 unit PRBCs - HH stable - Pt has refused colonoscopy in the past (recently), recommend hematology work- up as an outpt (she folllows with Dr. Cloud for hx lung ca and current lung nodule that is being followed) (3) Encephalopathy Comment: - resolved. suspect mix of toxic and metabolic - ammonia mildy high this am but close to normal range and her mental status has improved today (4) Non-compliance Comment: - multiple hospital admission - approx 17 in the last year. It is being reported by [facility] that she is non-compliant with home meds. She has significant anxiety and has been taken off benzos in the past d/t misuse. -Appreciate psych consult - the patient has capacity - no recommendation for further meds, suggested outpt therapy. - family meeting with pt yesterday with social work, CAP loss prevention operations manager, pillowcase folder and daughter - the patient is open to assitsed living and has a meeting with [facility] tomorrow am prior to transfer to [facility] (5) H/O: CVA (cerebrovascular accident) Comment: Significant residual left sided weakness. Continue atorvastatin, eliquis and plavix (6) History of pulmonary embolism Comment: c/w eliquis no PE on CTA chest (7) Anxiety Comment: - Continue seroquel and duloxetine - History of benzodiazepine abuse. Would benefit from outpatient counseling. (8) CAD (coronary artery disease) Comment: Stable, no chest pain known CAD with lesion of LAD and total occlusion of posterior decending artery, not stentable Continue beta luis f, plavix, statin, and cardizem - ok to DC tele (9) COPD (chronic obstructive pulmonary disease) Comment: - stable - With hx of lung CA, partial lobectomy and recurrent PNA - Inhalers, supportive care (10) Chronic headache Comment: - Chronic, failed many treatments in the past and abused narcotics - Will continue tylenol and gabapentin PRN - Neuro consult with Dr. Santamaria previous admission, limited options at this point given multiple comorbid conditions, MRI Brain 09/15 with no acute findings - Did not respond to valproic acid - Continue oral magnesium supplements - consider food allergy testing as an outpt - Discussed alternate measures, hot and cold packs, a little caffeine, massage as an outpatient. (11) Hypertension Comment: Intermittently well controlled, continue metoprolol, diltiazem. (12) Hypothyroidism Comment: - Continue synthroid 175 mcg daily (13) DVT prophylaxis Comment: Continue eliquis Status and Disposition: Inpatient- community affairs manager/social work following. Plan to discharge to [facility] in [place] for subacute rehab 10/07/17
[2017-10-06] MEDS: Atorvastatin* 40 MG TAB PO SCH (18:12)
[2017-10-06] MEDS: QUEtiapine TAB* 100 MG PO SCH (19:31)
[2017-10-06] MEDS: Mometasone 220 MCG MDI INH SCH (21:57)
[2017-10-07] MEDS: Levothyroxine TAB* 175 MCG TAB PO SCH (05:50)
[2017-10-07] MEDS: Acetaminophen TAB* 325 MG PO PRN ×2 (05:50→11:19)
[2017-10-07] MEDS: Gabapentin CAP(*) 300 MG PO PRN ×2 (05:50→11:19)
[2017-10-07 07:21] VITALS: BP 150/89
--- NOTE | 2017-10-07 08:57 | DS ---
DISCHARGE SUMMARY: DATE OF ADMISSION: 10/03/17 DATE OF DISCHARGE: 10/07/17 PROVIDER: Slade Stein NP ATTENDING PHYSICIAN: Dr. Brannon * (report dictated by Slade Stein NP) PRIMARY CARE PROVIDER: Guerrero Gtz NP DISCHARGE DIAGNOSES: 1. Hyponatremia, thought to be secondary to noncompliance with home medications and possibly dehydration. 2. Acute renal failure. 3. Lactic acidosis. 4. Acute respiratory failure, thought to be secondary to benzodiazepines, requiring BiPAP in the ICU. 5. Anemia. 6. Electrolyte abnormalities. 7. Encephalopathy, suspect a mix of toxic and metabolic, resolved. 8. Noncompliance. SECONDARY DIAGNOSES: 1. Hypothyroidism. 2. Atrial fibrillation. 3. Chronic pain/chronic headaches. 4. Chronic obstructive pulmonary disease. 5. History of lung cancer, followed by Dr. Nimco Cloud, with lung nodule currently being followed. 6. Anemia. 7. Hypertension. 8. Hyperlipidemia. 9. History of PE. 10. History of opioid and benzodiazepine use. 11. Anxiety. 12. Coronary artery disease. 13. History of GI bleed in the setting of NSAID use. 14. History of CVA with residual left-sided arm weakness. 15. Current tobacco abuse. DISCHARGE MEDICATIONS: 1. Cymbalta 60 mg p.o. daily. 2. Plavix 75 mg p.o. daily. 3. Vitamin D 2000 units p.o. daily. 4. Lipitor 40 mg p.o. at 1700. 5. Eliquis 5 mg p.o. b.i.d. 6. Albuterol HFA inhaler two puffs INH q. 4 hours p.r.n. 7. Albuterol neb 2.5 mg INH q.4 hours p.r.n. 8. Acetaminophen 650 mg p.o. q.6 hours p.r.n. 9. Gabapentin 300 mg p.o. t.i.d. p.r.n. 10. Flovent HFA 220 mcg one puff INH b.i.d. 11. Colace 200 mg p.o. b.i.d. 12. Cardizem 120 mg p.o. daily. 13. Sodium chloride tab 1 g p.o. daily. 14. Seroquel 100 mg p.o. bedtime. 15. Omeprazole 40 mg p.o. b.i.d. 16. Metoprolol succinate 25 mg p.o. daily. 17. Magnesium oxide 400 mg p.o. daily. 18. Synthroid 175 mcg p.o. daily. 19. Atrovent 0.5 mg/2.5 mL INH q.i.d. p.r.n. There has been no change in home medications since admission. HISTORY OF PRESENT ILLNESS AND HOSPITAL COURSE: Please see history and physical by Dr. Garcia for full admission details; but, in summary, this is a 66 -year-old female with a history of noncompliance and multiple hospitalizations, approximately 17 hospitalizations in the last year, 10 being since May 2017. Ms. Glover was recently discharged on 09/28/17 when she was admitted for sinus tachycardia and hypotension, and there was a concern at that time Ms. Glover was either not taking her home medications or taking them inappropriately. The patient has been set up with visiting nurse who report that they had been to Ms. Glover's home every day up until the day that she came in this hospitalization. It was reported that Ms. Glover frequently refused to take her daily medication. It is unclear how the patient got to the emergency department; either she called the ambulance herself or a friend called the ambulance. Per the ER documentation note, she reports that she was very anxious at home. She was given a dose of Ativan in the emergency department; then, unfortunately, the patient became oversedated, requiring monitoring in the ICU on BiPAP. Just to clarify - looking back at the ER note, the patient's chief complaint on admission was increased anxiety along with vomiting, generalized weakness, and dehydration. The patient presented to the emergency department with a sodium of 117, and I suspect this was secondary to her being noncompliant with her sodium tablets at home, as well as possible dehydration. She does have history of hyponatremia before in the past, and that is why she's supposed to take the sodium chloride tablets at home. Her sodium level has increased over her course with IV fluids and placing her back on her salt tablets. She currently, today, has a sodium of 135. It was also noted that her creatinine was elevated above her baseline and on admission was 1.44 and today is 0.74, so most likely there was a component of dehydration. In regards to the patient's reported vomiting on admission, she has had no further vomiting and I suspect this could be secondary to her low sodium. The patient turned around quickly in the ICU on BiPAP; and, by the next morning , she was alert and oriented x3, off the BiPAP, and doing well. The patient has a history of chronic headaches, and was seen by Neurology during one of her visits in August of this year. She underwent an MRI at that time which showed no acute findings, and it was thought that her headaches were secondary to rebound headaches from chronic medication overuse, and over the past 6 months she has been weaned off her benzos and narcotics. The patient frequently asked for tramadol; however, during this hospitalization, when she requested tramadol for an "extremely bad headache," it is noted that she does not appear to be in a lot of pain, and throughout this hospitalization she has not received any narcotics and has done well. I have followed this patient since her hospitalization since day 2 through today, and have seen the patient multiple times each day and she appears to be doing well without any acute distress. I suspect part of her complaint of headaches is possibly her wanting to treat her anxiety. I asked for a Psych consult in which she was seen by the supersonic engineer, as well I discussed her case with the psychiatrist. Recommendation is for outpatient therapy, which I do think would be very beneficial to the patient as she has underlying anxiety as well as she has lost her and her two sons and has a lot of grief surrounding this. No recommendation was given for new medications. The patient is found to have capacity. A family meeting was held with her primary care provider, interactive account manager, and social work to discuss with Aixa and her daughter the concern over her multiple hospitalizations and her noncompliance, recommending assisted living. The patient is open to assisted living at this time, more so than she has been in the past, and I think that she would greatly benefit from being in an assisted living environment as she is very social, and I think could use the support from nursing staff and help with her medications. Per Psych's consultation, the patient does have capacity to make her own decisions. Her daughter was present during the meeting and strongly encouraged her mother to move forward with assisted living, and at this time the patient is considering it. The plan will be to transfer her to [facility] rehab in [place] for further strength training, which I think the patient would greatly benefit from. In regards to the patient's anemia, her hemoglobin dropped to 6.9. She has a history of chronic anemia throughout her multiple hospitalizations. I do not think she has followed up with Dr. Cloud, typewriter ribbon winder, in regards to this anemia due to multiple hospitalizations and rehab and strongly suggest she has a follow up. She was given 1 unit of packed red blood cells. Her hemoglobin and hematocrit today is 8.7 and 26. Her stool for occult blood is negative. I think most likely this is anemia of chronic disease; however, she should undergo a Hematology consult and is followed by Dr. Cloud as an outpatient with her history of lung cancer and lung nodule that is currently being followed. The patient has had a low potassium and magnesium intermittently throughout her hospitalization and received supplementation. The patient underwent a brain CT, which showed: "1. Slightly limited exam due to motion artifact. 2. No evidence for gross acute infarct, mass effect, or hemorrhage. 3. Small old right frontal lobe infarct. 4. Findings suggestive of moderate chronic small-vessel ischemic changes. 5. Small air/fluid bubbles within the right maxillary sinuses raising the possibility of acute sinusitis." In regards to possible acute sinusitis noted on the brain CT, the patient has not complained of any sinus pain or nasal congestion. At this time, recommendation to continue to monitor. The patient had a negative urine culture. The patient has remained hemodynamically stable throughout her hospitalization, and has remained afebrile. DISCHARGE PLAN: 1. Plan to discharge to [facility] for subacute rehab on 10/07/17. 2. Strongly suggest the patient be set up with a weekly psychiatrist or psychologist. 3. Please make an appointment for the patient to have a followup with Dr. Nimco Cloud for a Hematology appointment for her chronic anemia. 4. Follow up CBC and BMP in one week. TIME SPENT: Approximately 60 minutes were spent on this discharge. SLADE STEIN, [place] [id number]/[facility] #: [id number] NICOLE
[2017-10-07] MEDS: Apixaban* 5 MG TAB PO SCH (09:37)
[2017-10-07] MEDS: Metoprolol Succinate XL TAB* 50 MG PO SCH (09:37)
[2017-10-07] MEDS: Docusate CAP* 100 MG PO SCH (09:37)
[2017-10-07] MEDS: DULoxetine DR CAP* 60 MG CAP.DR PO SCH (09:37)
[2017-10-07] MEDS: Sodium Chloride TAB* 1 GM PO SCH (09:37)
[2017-10-07] MEDS: CMCS:Pantoprazole TAB (NF) 40 MG TAB PO SCH (09:38)
[2017-10-07] MEDS: Diltiazem CD CAP* 120 MG PO SCH (09:38)
[2017-10-07] MEDS: Clopidogrel TAB* 75 MG PO SCH (09:38)
[2017-10-07] MEDS: Cholecalciferol TAB* 1000 UNITS PO SCH (09:38)
[2017-10-07] MEDS: Magnesium Oxide TAB* 400 MG PO SCH (09:38)
== END 2017-10-07 12:05 | DRG 640 ==
LOC: ED 22:52 → MEDTELE 10-03 01:54 → ICU 10-03 10:15 → MED 10-04 12:12
PROVIDERS: ADMIT Hospitalist; ATTEND Internal Medicine
PROC: 5A09357 Assistance with Respiratory Ventilation, Less than 24 Consecutive Hours, Continuous Positive Airway Pressure (ICD-10-PCS; principal; 2017-10-03)
PROC: 30233N1 Transfusion of Nonautologous Red Blood Cells into Peripheral Vein, Percutaneous Approach (ICD-10-PCS; 2017-10-05)
DX: E87.1 Hypo-osmolality and hyponatremia (principal); G92 Toxic encephalopathy; N17.9 Acute kidney failure, unspecified; E86.0 Dehydration; F41.9 Anxiety disorder, unspecified; E03.9 Hypothyroidism, unspecified; E78.00 Pure hypercholesterolemia, unspecified; I10 Essential (primary) hypertension; J44.9 Chronic obstructive pulmonary disease, unspecified; K21.9 Gastro-esophageal reflux disease without esophagitis; M81.0 Age-related osteoporosis without current pathological fracture; M41.9 Scoliosis, unspecified; F32.9 Major depressive disorder, single episode, unspecified; G43.909 Migraine, unspecified, not intractable, without status migrainosus; D63.8 Anemia in other chronic diseases classified elsewhere; H91.91 Unspecified hearing loss, right ear; I25.10 Atherosclerotic heart disease of native coronary artery without angina pectoris; G89.29 Other chronic pain; F17.210 Nicotine dependence, cigarettes, uncomplicated; H26.9 Unspecified cataract; R91.1 Solitary pulmonary nodule; E87.2 Acidosis; J01.00 Acute maxillary sinusitis, unspecified; I48.91 Unspecified atrial fibrillation; Z82.49 Family history of ischemic heart disease and other diseases of the circulatory system; Z83.79 Family history of other diseases of the digestive system; Z85.118 Personal history of other malignant neoplasm of bronchus and lung; Q21.1 Atrial septal defect; I69.354 Hemiplegia and hemiparesis following cerebral infarction affecting left non-dominant side; Z88.6 Allergy status to analgesic agent; Z91.040 Latex allergy status; I25.2 Old myocardial infarction; Z90.710 Acquired absence of both cervix and uterus; Z86.711 Personal history of pulmonary embolism; Z90.2 Acquired absence of lung [part of]; Z63.4 Disappearance and death of family member; Z91.14 Patient's other noncompliance with medication regimen; Z79.02 Long term (current) use of antithrombotics/antiplatelets; Z79.01 Long term (current) use of anticoagulants; Z79.52 Long term (current) use of systemic steroids; T42.4X5A Adverse effect of benzodiazepines, initial encounter; J96.01 Acute respiratory failure with hypoxia; J96.02 Acute respiratory failure with hypercapnia
CPT/HCPCS: 36415; 36600; 70450; 71045; 80048; 80051; 80053; 80307; 81003; 81015; 82140; 82150; 82272; 82728; 82746; 82803; 83036; 83540; 83550; 83605; 83690; 83735; 83880; 83935; 84100; 84300; 85025; 85610; 85730; 86140; 86850; 86900; 86901; 86922; 87086; 93005; 94640; 94660; 99284; 99406; A9270-GY; G8978-GP-CJ; G8979-GP-CH; G8987-GO-CL; G8988-GO-CI; G8989-GO-CI; J2060; J3475; P9040

== ENCOUNTER 2017-11-20 11:27 | Observation (INO) | payer MEDICARE, BC ==
[2017-11-20] MEDS ORDERED: Morphine VIAL* 4 MG/ML VIAL (1 ml vial) IV ONE (11:39)
[2017-11-20] MEDS ORDERED: Nitroglycerin TAB 0.4 MG* 0.4 MG TAB SL ONE (11:39)
[2017-11-20] MEDS ORDERED: Ondansetron ODT TAB* 4 MG PO ONE (11:39)
[2017-11-20 12:20] LABS: INR 0.9 (0.77-1.02)
[2017-11-20] MEDS: NS 0.9% 1000 ML* 1,000 ML IV SCH ×2 (12:23→23:09)
[2017-11-20 12:27] LABS: EGFR Non-African American 82.4 (>60)
[2017-11-20 12:28] LABS: Hematocrit 33 % (35-47); Hemoglobin 10.6 g/dl (12.0-16.0); Mean Corpuscular HGB Conc 32 g/dl (31-36); Mean Corpuscular Hemoglobin 26 pg (27-31); Mean Corpuscular Volume 82 fL (80-97); Mean Platelet Volume 7.1 um3 (7.4-10.4); Platelet Count 537 10^3/ul (150-450); Red Blood Count 4.04 10^6/ul (4.00-5.40); Red Cell Distribution Width 18 % (10.5-15); White Blood Count 6.2 10^3/ul (3.5-10.8)
[2017-11-20 13:08] LABS: Monocytes % 8 % (0-7)
--- NOTE | 2017-11-20 13:28 | RAD ---
INDICATION: Left chest pain COMPARISON: October 02, 2017 TECHNIQUE: An AP portable view obtained at 1307 hours is submitted. FINDINGS: Bones/Soft Tissues: There are no acute bony findings. Cardiomediastinal: The heart is normal in size. There is mediastinal shift left. The silhouette is unchanged. Lungs: Postoperative change left chest with volume loss with mild chronic pleural and parenchymal change.. No acute infiltrates Pleura: There are no pleural effusions. Other: None IMPRESSION: LEFT-SIDED THORACOTOMY WITH CHRONIC PLEURAL AND PARENCHYMAL CHANGES. NO ACUTE FINDINGS.
[2017-11-20] MEDS ORDERED: Albuterol 2.5 MG/3 ML NEB.SOL* (0.083%) INH PRN (15:07)
[2017-11-20] MEDS ORDERED: Albuterol HFA INHALER* 8 gm MDI INH PRN (15:07)
[2017-11-20] MEDS ORDERED: Gabapentin CAP(*) 300 MG PO PRN (15:07)
[2017-11-20] MEDS ORDERED: Ipratropium 0.5MG/2.5ML NEB* 0.5 MG/2.5 ML NEB.SOLN INH PRN (15:07)
[2017-11-20] MEDS ORDERED: Acetaminophen TAB* 325 MG PO PRN (15:07)
--- NOTE | 2017-11-20 15:46 | ED ---
Elroy Winkler Jade, scribed for Tony Wilcox MD on 11/20/17 at 1136 . HPI Chest Pain - HPI Summary HPI Summary: Pt is a 67 y/o female BIBA who c/o CP. She states yesterday she felt nauseated all day and as if she needed sodium. Today, she was woken from sleep at 5:00 to 8/10 chest pain and pressure. The pain is located over her left chest and radiates to her left arm, which feels achy and numb. Pt also complains of diaphoresis, chills, nausea, mild SOB, and pain with deep breaths. Pt denies any vomiting, leg pain, or abdominal pain. She has not taken NTG for the CP yet , and is allergic to ASA. She has a PMHx of silent ME, AFib, murmur, and stroke which rendered her left arm chronically weak. Pt denies PSHx of cholecystectomy. She is currently on blood pressure medications and Eliquis for her stroke. - History of Current Complaint Chief Complaint: EDChestPainROMI Time Seen by Provider: 11/20/17 11:30 Hx Obtained From: Patient Onset/Duration: Started Hours Ago - Yesterday, Worse Since Timing: Constant Current Severity: Severe Pain Intensity: 8 Pain Scale Used: 0-10 Numeric Chest Pain Location: Left Anterior Chest Pain Radiates To:: Arm - Left Character: Pressure/Squeezing Aggravating Factor(s): Nothing Alleviating Factor(s): Nothing Associated Signs and Symptoms: Positive: Chest Pain, Numbness, Shortness of Breath, Nausea. Negative: Vomiting - Additional Pertinent History Primary Care Physician: [id number] - Allergy/Home Medications Allergies/Adverse Reactions: Allergies Allergy/AdvReac Type Severity Reaction Status Date / Time aspirin Allergy Severe Anaphylatic Verified 11/20/17 11:30 Shock latex Allergy Mild Rash Verified 11/20/17 11:30 Home Medications: Home Medications QUEtiapine TAB* [Seroquel 100 MG *] 200 - 300 mg PO BEDTIME MDD 300 11/20/17 [ History Confirmed 11/20/17] amLODIPine TAB* [Norvasc 5 mg TAB*] 5 mg PO DAILY 11/20/17 [History Confirmed ] PMH/Surg Hx/FS Hx/Imm Hx Endocrine/Hematology History: Reports: Hx Thyroid Disease - hypothyroid, Other Endocrine/Hematological Disorders - Benign goiter Denies: Hx Bone Marrow Disease, Hx Diabetes, Hx Systemic Lupus Erythematosus Cardiovascular History: Reports: Hx Angina, Hx Atrial Fibrillation, Hx Hypercholesterolemia - was high before cancer,now off meds., Hx Hypertension, Hx Myocardial Infarction - NSTEMI, Other Cardiovascular Problems/Disorders - patent foramen ovale; Murmur, Denies: Hx Congestive Heart Failure, Hx Coronary Artery Disease, Hx Pacemaker /ICD, Hx Valvular Heart Disease Respiratory History: Reports: Hx Asthma, Hx Chronic Obstructive Pulmonary Disease (COPD), Hx Lung Cancer - Left upper lobectomy, Hx Pneumonia, Other Respiratory Problems/Disorders - lung cancer, LOBECTOMY 09/11/11, Emphysema GI History: Reports: Hx Gastroesophageal Reflux Disease, Hx Hiatal Hernia, Other GI Disorders - colitis. 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, Hx Osteoporosis, Hx Scoliosis, Other Musculoskeletal History - scoliosis Denies: Hx Rheumatoid Arthritis Sensory History: Reports: Hx Cataracts - PATIENT STATES BEGINING OF CATARACTS LEFT EYE, Hx Contacts or Glasses, Hx Hearing Problem - right Denies: Hx Hearing Aid Opthamlomology History: Reports: Hx Cataracts - PATIENT STATES BEGINING OF CATARACTS LEFT EYE, Hx Contacts or Glasses Neurological History: Reports: Hx CVA - in 05/16, Hx Headaches, Hx Migraine - Rare post menopause Psychiatric History: Reports: Hx Anxiety, Hx Depression, Hx Community Mental Health Tx, Hx Substance Abuse - opioids Denies: Hx Panic Disorder, Hx Inpatient Treatment - Cancer History Cancer Type, Location and Year: LUNG CA, DIAGNOSED July 2012 Hx Chemotherapy: Yes Hx Radiation Therapy: No Hx Palliative Cancer Treatment: No - Surgical History Surgery Procedure, Year, and Place: LEFT UPPER LUNG REMOVED 09/2012, HYSTERECTOMY , tonsillectomy Hx Anesthesia Reactions: No - Immunization History Date of Tetanus Vaccine: utd Date of Influenza Vaccine: utd Infectious Disease History: No Infectious Disease History: Denies: Hx of Known/Suspected MRSA, Traveled Outside the [place] in Last 30 Days - Family History Known Family History: Positive: Cardiac Disease - Sudden cardiac arrest (father) , Other - son -- glioblastoma. UC mother. Fhx of colitis. - Social History Lives: Alone Alcohol Use: unable to obtain Alcohol Amount: Unknown Hx Substance Use: No Substance Use Type: Reports: None Substance Use Comment - Amount & Last Used: percocet Hx Tobacco Use: Yes Smoking Status (MU): Light Every Day Tobacco Smoker Type: Cigarettes Amount Used/How Often: 1/2 pack a day Length of Time of Smoking/Using Tobacco: 47 years Have You Smoked in the Last Year: Yes Review of Systems Positive: Chills, Skin Diaphoresis Positive: Chest Pain Positive: Shortness Of Breath Positive: Nausea. Negative: Abdominal Pain, Vomiting Musculoskeletal: Negative - Leg pain Positive: Numbness All Other Systems Reviewed And Are Negative: Yes Physical Exam - Summary Physical Exam Summary: General: well-appearing, mild-moderate pain distress Skin: warm, color reflects adequate perfusion, dry Head: normal Eyes: EOMI, ADORE ENT: normal Neck: supple, nontender Respiratory: CTA, breath sounds present Cardiovascular: tachycardic, no edema Abdomen: soft, nontender Bowel: present Musculoskeletal: normal, strength/ROM intact Neurological: A&O x3, left arm chronically weak Psychological: affect/mood appropriate Triage Information Reviewed: Yes Vital Signs On Initial Exam: Initial Vitals Temp Pulse Resp BP Pulse Ox 98.8 F 112 16 153/108 98 11/20/17 11:27 11/20/17 11:27 11/20/17 11:27 11/20/17 11:27 11/20/17 11:27 Vital Signs Reviewed: Yes Diagnostics - Vital Signs Vital Signs Temp Pulse Resp BP Pulse Ox 11/20/17 11:27 98.8 F 112 16 153/108 98 - Laboratory Lab Results: Lab Results 11/20/17 11/20/17 11/20/17 Range/Units 12:02 12:02 12:02 WBC 6.2 (3.5-10.8) 10^3/ul RBC 4.04 (4.00-5.40) 10^6/ul Hgb 10.6 L (12.0-16.0) g/dl Hct 33 L (35-47) % MCV 82 (80-97) fL MCH 26 L (27-31) pg MCHC 32 (31-36) g/dl RDW 18 H (10.5-15) % Plt Count 537 H D (150-450) 10^3/ul MPV 7.1 L (7.4-10.4) um3 Neut % (Auto) Not Reportable Lymph % (Auto) Not Reportable [place] % (Auto) Not Reportable Eos % (Auto) Not Reportable Baso % (Auto) Not Reportable Absolute Neuts (auto) Not Reportable Absolute Lymphs (auto) Not Reportable Absolute Monos (auto) Not Reportable Absolute Eos (auto) Not Reportable Absolute Basos (auto) Not Reportable Absolute Nucleated RBC Not Reportable Neutrophils % 74 (38-83) % Lymphocytes % 17 L (25-47) % Reactive Lymphs % 1 (0-6) % Monocytes % 8 H (0-7) % Nucleated RBC % Not Reportable Normal RBC Morphology Not Reportable Hypochromasia 1+ Elliptocytes 1+ INR (Anticoag Therapy) 0.90 (0.77-1.02) APTT 33.1 (26.0-36.3) seconds D-Dimer, Quantitative 214 (Less Than 230) ng/mL Sodium 125 L (135-145) mmol/L Potassium 3.3 L (3.5-5.0) mmol/L Chloride 92 L (101-111) mmol/L Carbon Dioxide 18 L (22-32) mmol/L Anion Gap 15 H (2-11) mmol/L BUN 8 (6-24) mg/dL Creatinine 0.71 (0.51-0.95) mg/dL Est GFR ( Amer) 99.7 (>60) Est GFR (Non-Af Amer) 82.4 (>60) BUN/Creatinine Ratio 11.3 (8-20) Glucose 77 (70-100) mg/dL Lactic Acid (0.5-2.0) mmol/L Calcium 9.7 (8.6-10.3) mg/dL Magnesium 1.8 L (1.9-2.7) mg/dL Total Bilirubin 0.40 (0.2-1.0) mg/dL AST 13 (13-39) U/L ALT 7 (7-52) U/L Alkaline Phosphatase 75 (34-104) U/L Total Creatine Kinase 27 (10-223) U/L CK-MB (CK-2) 2.0 (0.6-6.3) ng/mL Troponin I 0.01 (<0.04) ng/mL C-Reactive Protein 1.92 (<8.01) mg/L B-Natriuretic Peptide ( - 100) pg/mL Total Protein 7.2 (6.4-8.9) g/dL Albumin 4.1 (3.2-5.2) g/dL Globulin 3.1 (2-4) g/dL Albumin/Globulin Ratio 1.3 (1-3) Lipase 11 (11.0-82.0) U/L TSH 2.05 (0.34-5.60) mcIU/mL 11/20/17 11/20/17 Range/Units 12:02 12:02 WBC (3.5-10.8) 10^3/ul RBC (4.00-5.40) 10^6/ul Hgb (12.0-16.0) g/dl Hct (35-47) % MCV (80-97) fL MCH (27-31) pg MCHC (31-36) g/dl RDW (10.5-15) % Plt Count (150-450) 10^3/ul MPV (7.4-10.4) um3 Neut % (Auto) Lymph % (Auto) [place] % (Auto) Eos % (Auto) Baso % (Auto) Absolute Neuts (auto) Absolute Lymphs (auto) Absolute Monos (auto) Absolute Eos (auto) Absolute Basos (auto) Absolute Nucleated RBC Neutrophils % (38-83) % Lymphocytes % (25-47) % Reactive Lymphs % (0-6) % Monocytes % (0-7) % Nucleated RBC % Normal RBC Morphology Hypochromasia Elliptocytes INR (Anticoag Therapy) (0.77-1.02) APTT (26.0-36.3) seconds D-Dimer, Quantitative (Less Than 230) ng/mL Sodium (135-145) mmol/L Potassium (3.5-5.0) mmol/L Chloride (101-111) mmol/L Carbon Dioxide (22-32) mmol/L Anion Gap (2-11) mmol/L BUN (6-24) mg/dL Creatinine (0.51-0.95) mg/dL Est GFR ( Amer) (>60) Est GFR (Non-Af Amer) (>60) BUN/Creatinine Ratio (8-20) Glucose (70-100) mg/dL Lactic Acid 1.2 (0.5-2.0) mmol/L Calcium (8.6-10.3) mg/dL Magnesium (1.9-2.7) mg/dL Total Bilirubin (0.2-1.0) mg/dL AST (13-39) U/L ALT (7-52) U/L Alkaline Phosphatase (34-104) U/L Total Creatine Kinase (10-223) U/L CK-MB (CK-2) (0.6-6.3) ng/mL Troponin I (<0.04) ng/mL C-Reactive Protein (<8.01) mg/L B-Natriuretic Peptide 127 H ( - 100) pg/mL Total Protein (6.4-8.9) g/dL Albumin (3.2-5.2) g/dL Globulin (2-4) g/dL Albumin/Globulin Ratio (1-3) Lipase (11.0-82.0) U/L TSH (0.34-5.60) mcIU/mL Result Diagrams: 11/20/17 12:02 11/20/17 12:02 Lab Statement: Any lab studies that have been ordered have been reviewed, and results considered in the medical decision making process. - Radiology CXR Xray Interpretation: No Acute Changes - 11:38: LEFT-SIDED THORACOTOMY WITH CHRONIC PLEURAL AND PARENCHYMAL CHANGES. NO ACUTE FINDINGS. ED physician reviewed radiology report. Radiology Interpretation Completed By: Radiologist - EKG 12:01 Cardiac Rate: Tachycardia - 108 bpm EKG Rhythm: Sinus Rhythm Ectopy: PACs EKG Interpretation: ST elevations in anterior leads, EKG reviewed with Dr. Hernández EKG Comparison: No Significant Change - ST elevations in anterior leads similar to EKG on 10/03/17 Chest Pain Course/Dx - Course Course Of Treatment: CASE DISCUSSED WITH AND EKG VIEWED BY DR HERNÁNDEZ. NO STEMI AT THIS TIME. ADMIT HOSPITALIST. CRITICAL CARE TIME LESS THAN 30 MINUTES. - Diagnoses Provider Diagnoses: Chest pain - Provider Notifications Discussed Care Of Patient With: Alphonso Hernández Time Discussed With Above Provider: 12:29 Instructed by Provider To: Other - Discussed case with Dr. Hernández, including the EKG which he reviewed. This is not STEMI. Consulted with Angelique Linton NP at 13:45, and she will come to the ED to visit the pt. Discharge - Sign-Out/Discharge Documenting (check all that apply): Discharge/Admit/Transfer - Admit - Discharge Plan Condition: Stable Disposition: ADMITTED TO [facility] Referrals: Guerrero Gtz, DIE STAMPER [Primary Care Provider] - - Billing Disposition and Condition Condition: STABLE Disposition: Admitted to [facility] The documentation as recorded by the Elroy crawford Jade accurately reflects the service I personally performed and the decisions made by me, Tony Wilcox MD.
[2017-11-20] MEDS ORDERED: Atorvastatin* 40 MG TAB PO SCH (17:00)
--- NOTE | 2017-11-20 17:18 | HP ---
CC: Guerrero Gtz NP* HOSPITAL MEDICINE HISTORY AND PHYSICAL: DATE OF ADMISSION: 11/20/17 PRIMARY CARE PHYSICIAN: Guerrero Gtz NP ATTENDING PHYSICIAN: Dr. Aaron Jacobs * (dictation provided by Angelique Linton NP). CHIEF COMPLAINT: Chest pain. HISTORY OF PRESENT ILLNESS: Ms. Glover is a 67-year-old female, well known to the hospital medicine service with 9 hospitalizations this year, who presents today to the hospital with concern for chest pain. Ms. Glover has a history of coronary artery disease with known stenosis to the LAD with recommendations for medical management per cardiac catheterization, April 2017. She is on Plavix routinely as well as Eliquis. She also has a history of hyponatremia, atrial fibrillation, chronic pain, and a history of lung cancer for which she has had a lobectomy. She states that she left [facility] on 10/21/17 after being discharged from our hospital to there. She had been doing well up until yesterday when she developed some nausea associated with lightheadedness and general malaise. She slept poorly during the night and then was awoken at 5 a.m. with a discomfort described as chest heaviness from the center to the left side of her chest associated with tingling in her left arm. The patient does have a history of CVA with left arm weakness. In the emergency room, Ms. Glover had a troponin, which was negative. Her EKG showed no evidence of ischemia. She had a chest x-ray, which showed no change from baseline. Her other labs were unremarkable. PAST MEDICAL HISTORY: 1. Lung cancer, status post left upper lobe lobectomy. 2. Hyponatremia. 3. Hypothyroidism. 4. Atrial fibrillation. 5. Chronic pain. 6. Coronary artery disease with known LAD stenosis up to 65%, on medical management. 7. COPD. 8. Anemia. 9. Hypertension. 10. History of tobacco abuse. 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 12. History of GI bleed with NSAID use. 13. Hyperlipidemia. 14. History of PE. 15. History of chronic opioid and benzo use, not currently part of her medication regimen. 16. Anxiety. MEDICATIONS OUTPATIENT: 1. Tylenol 650 mg p.o. q.6 hours p.r.n. 2. Albuterol via nebulizer p.r.n. 3. Albuterol via inhaler p.r.n. 4. Amlodipine 5 mg p.o. daily. 5. Apixaban 5 mg p.o. b.i.d. 6. Atorvastatin 40 mg p.o. daily. 7. Cholecalciferol 2000 units p.o. daily. 8. Clopidogrel 75 mg p.o. daily. 9. Diltiazem CD 120 mg p.o. daily. 10. Docusate 200 mg p.o. b.i.d. 11. Duloxetine DR 60 mg p.o. daily. 12. Flovent 220 mcg 1 puff inhaled b.i.d. 13. Gabapentin 300 mg p.o. b.i.d. p.r.n. 14. Ipratropium 0.5 mg inhaled q.i.d. p.r.n. 15. Levothyroxine 175 mcg p.o. daily. 16. Magnesium oxide 400 mg p.o. daily. 17. Metoprolol succinate 25 mg p.o. daily. 18. Omeprazole 40 mg p.o. b.i.d. 19. Quetiapine 100 mg tabs 2 to 3 tabs p.o. at bedtime for insomnia. 20. Sodium chloride 1 g p.o. daily. FAMILY HISTORY: The patient has a mother with history of ulcerative colitis and dad had a history of coronary artery disease. SOCIAL HISTORY: The patient smokes about 5 cigarettes per day. No reported alcohol or drug use. She states her daughter, Elyssa, will be the health care proxy. REVIEW OF SYSTEMS: A 14-point review of systems was completed with Ms. Glover and all those not mentioned above were negative. PHYSICAL EXAMINATION GENERAL: Ms. Glover is sitting in the bed eating a sandwich. She is in no acute distress. VITAL SIGNS: Temperature 98.8, pulse rate 114, respiratory rate 15, O2 saturation 97% on room air, blood pressure 118/89. LUNGS: Have some musical wheezes bilaterally with no accessory muscle use and good aeration. HEART: S1, S2. No murmur, rub, or gallop and rapid, but regular. ABDOMEN: Soft, nontender with bowel sounds positive x4. EXTREMITIES: No cyanosis or edema. NEURO: The patient is alert and oriented x3. She moves all extremities equally except for her left upper extremity, which has +3 to 4 strength with a weak appeals examiner and notable hand contractures on the left. She has good strength in bilateral lower extremities, good strength in right upper extremity. There is no facial asymmetry. Extraocular movements are intact. SKIN: Intact. DIAGNOSTIC STUDIES/LAB DATA: Sodium 125, potassium 3.3, chloride 92, serum bicarbonate 18, BUN 8, creatinine 0.71, glucose 77. Magnesium 1.8. BNP 127. CRP 1.92. WBC 6.2, hemoglobin 10.6, hematocrit 33, platelet count 537. Chest x-ray shows no change from previous and is read as follows: "Left-sided thoracotomy with chronic pleural and parenchymal changes, no acute findings." EKG is unchanged from baseline showing a sinus tachycardia. ASSESSMENT AND PLAN: Ms. Glover is a 67-year-old female with 9 admissions to our hospital this year, who presents again to the hospital today with chest pain with left arm tingling. Our plans are for observation for the followin. Chest pain. The patient's first troponin is negative and her EKG shows no evidence of ischemia. She does have a history of known coronary artery disease with LAD stenosis. Our plans will be for observation in the hospital overnight for repeat troponins and further workup as needed. In terms of alternate etiology, the patient is on chronic Eliquis therapy and will be very low risk for pulmonary embolism. Chest shows no evidence of infection and her chest x- ray is unchanged. 2. Hypertension. Continue home medications including amlodipine, metoprolol, diltiazem. 3. History of deep venous thrombosis and atrial fibrillation. Continue Eliquis. 4. History of coronary artery disease. Continue clopidogrel. 5. Gastroesophageal reflux disease. Continue omeprazole. 6. Hypothyroidism. Continue levothyroxine. 7. History of lung cancer with chronic obstructive pulmonary disease. Continue home inhalers. No evidence of acute exacerbation. 8. DVT prophylaxis with Eliquis. 9. Code status is full code. This was reviewed with the patient at the bedside today. TIME SPENT: Approximately 60 minutes were spent on the admission of this patient, more than half of the time was spent with the patient at the bedside reviewing the events leading up to this hospitalization, performing the physical examination, and reviewing my plan of care. ANGELIQUE LINTON, CLINICAL OPERATIONS LEADER [id number]/[facility] #: [id number] NICOLE
[2017-11-20] MEDS ORDERED: Mometasone 220 MCG MDI INH SCH (18:00)
[2017-11-20] MEDS: traMADol TAB* 50 MG PO PRN (18:45)
[2017-11-20] MEDS ORDERED: QUEtiapine TAB* 100 MG PO SCH (21:00)
[2017-11-20] MEDS: Apixaban* 5 MG TAB PO SCH (22:30)
[2017-11-20] MEDS: Docusate CAP* 100 MG PO SCH (22:31)
[2017-11-20] MEDS: Pantoprazole TAB (NF) 40 MG TAB PO SCH (23:03)
[2017-11-21] MEDS ORDERED: Levothyroxine TAB* 150 MCG TAB PO SCH (06:00)
[2017-11-21] MEDS ORDERED: Levothyroxine TAB* 25 MCG TAB PO SCH (06:00)
[2017-11-21] MEDS: NS 0.9% 1000 ML* 1,000 ML IV SCH (06:14)
[2017-11-21] MEDS: traMADol TAB* 50 MG PO PRN ×2 (06:15→13:15)
[2017-11-21] MEDS: Docusate CAP* 100 MG PO SCH (08:20)
[2017-11-21] MEDS: Apixaban* 5 MG TAB PO SCH (08:20)
[2017-11-21] MEDS ORDERED: Cholecalciferol TAB* 1000 UNITS PO SCH (09:00)
[2017-11-21] MEDS ORDERED: Sodium Chloride TAB* 1 GM PO SCH (09:00)
[2017-11-21] MEDS ORDERED: Magnesium Oxide TAB* 400 MG PO SCH (09:00)
[2017-11-21] MEDS ORDERED: Diltiazem CD CAP* 120 MG PO SCH (09:00)
[2017-11-21] MEDS ORDERED: Clopidogrel TAB* 75 MG PO SCH (09:00)
[2017-11-21] MEDS ORDERED: amLODIPine TAB* 5 MG PO SCH (09:00)
[2017-11-21] MEDS ORDERED: Metoprolol Succinate XL TAB* 25 MG PO SCH (09:00)
[2017-11-21] MEDS ORDERED: DULoxetine DR CAP* 60 MG CAP.DR PO SCH (09:00)
--- NOTE | 2017-11-21 09:24 | PN ---
Subjective Date of Service: 11/21/17 Interval History: Patient seen and examined at bedside. Denies fever, chills, shortness of breath , N/V/D. Pt states that her legs felt weak when she got up and walked to the bathroom. Pt states that she continues to have left sided chest discomfort, that has improved since her admission. She denies any recent injury and activities that could have strained her chest muscles. She states that she has been doing well since she was last discharged in August ( last admission was actually early September). She states that she has no help at home , he daughter isn't around and her side service drop her for non compliance. Tele: Sinus rhythm, rate 70-80's. Family History: Unchanged from Admission Social History: Unchanged from Admission Past Medical History: Unchanged from Admission Objective Active Medications: Acetaminophen (Tylenol Tab*) 650 mg PO Q6H PRN Reason: FEVER/PAIN Albuterol (Ventolin 2.5 Mg/3 Ml Neb.Tracey*) 2.5 mg INH Q4H PRN Reason: SOB/ WHEEZING Albuterol (Ventolin Hfa Inhaler*) 2 puff INH Q4H PRN Reason: SOB/WHEEZING Amlodipine Besylate (Norvasc Tab*) 5 mg PO DAILY RAMSES Apixaban (Eliquis*) 5 mg PO BID RAMSES Atorvastatin Calcium (Lipitor*) 40 mg PO 1700 RAMSES Cholecalciferol (Vitamin D Tab*) 2,000 units PO DAILY RAMSES Clopidogrel Bisulfate (Plavix Tab*) 75 mg PO DAILY RAMSES Diltiazem HCl (Cardizem Cd Cap*) 120 mg PO DAILY RAMSES Docusate Sodium (Colace Cap*) 200 mg PO BID RAMSES Duloxetine HCl (Cymbalta Cap*) 60 mg PO DAILY RAMSES Gabapentin (Neurontin Cap(*)) 300 mg PO BID PRN Reason: PAIN Sodium Chloride (Ns 0.9% 1000 Ml*) 1,000 mls @ 150 mls/hr IV PER RATE RAMSES Ipratropium [place] (Atrovent 0.5 Mg Neb.Tracey*) 0.5 mg INH QID PRN Reason: SOB/ WHEEZING Levothyroxine Sodium (Synthroid Tab*) 25 mcg PO 0600 RAMSES Levothyroxine Sodium (Synthroid Tab*) 150 mcg PO DAILY@0600 RAMSES Magnesium Oxide (Magox 400 Tab*) 400 mg PO DAILY RAMSES Metoprolol Succinate (Toprol Xl Tab*) 25 mg PO DAILY RAMSES Mometasone Furoate (Asmanex 220 Mcg Mdi *) 2 puff INH QPM RAMSES Pantoprazole Sodium (Protonix Tab (Nf)) 40 mg PO BID RAMSES Quetiapine Fumarate (Seroquel Tab*) 200 mg PO BEDTIME RAMSES Sodium Chloride (Sodium Chloride Tab*) 1 gm PO DAILY RAMSES Tramadol HCl (Ultram*) 50 mg PO Q6H PRN Reason: PAIN Vital Signs - 8 hr 11/21/17 11/21/17 11/21/17 03:15 06:15 07:34 Temperature 98.3 F 98.2 F Pulse Rate 93 Respiratory 16 18 16 Rate Blood Pressure 95/54 124/72 (mmHg) O2 Sat by Pulse 95 96 Oximetry Oxygen Devices in Use Now: None Appearance: NAD, laying in bed Ears/Nose/Mouth/Throat: Mucous Membranes Moist Respiratory: Symmetrical Chest Expansion and Respiratory Effort, Clear to Auscultation Cardiovascular: RRR Abdominal: NL Sounds; No Tenderness; No Distention Extremities: No Edema Skin: No Rash or Ulcers Neurological: Alert and Oriented x 3, NL Muscle Strength and Tone Lines/Tubes/Other Access: Clean, Dry and Intact Peripheral IV - site benign Nutrition: Taking PO's Result Diagrams: 11/21/17 09:38 11/21/17 09:38 Additional Lab and Data: . Assess/Plan/Problems-Billing Assessment: Ms. Glover is a 67 yo female with PMH significant for lung cancer s/p Left upper lobectomy, hyponatremia, hypothyroidism, A fib, chronic pain, COPD, anemia , HTN, CVA with residual left sided weakness, GI bleed, HLD, hx PE, CAD, and anxiety who presented to the emergency room with complaints of chest pain. - Patient Problems (1) Chest pain Code(s): R07.9 - CHEST PAIN, UNSPECIFIED SNOMED Code(s): 36069961 Comment: - Suspect muscular in nature, as pain is reproducible with palpation. 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 Will recheck labs today and replace as needed - Hypomagnesium. Will recheck labs today and replace as needed. Continue PO supplement (4) Anemia Code(s): D64.9 - ANEMIA, UNSPECIFIED SNOMED Code(s): 666720159 Comment: - Stable - Chronic, unknown cause, Likely Anemia of Chronic Disease and Iron deficiency - History of GI bleed in May 2017, which the endocscopy showed gastritis. - Pt has refused colonoscopy in the past (recently), recommend hematology work- up as an outpt (she folllows with Dr. Cloud for hx lung ca and current lung nodule that is being followed) (5) Anxiety Code(s): F41.9 - ANXIETY DISORDER, UNSPECIFIED SNOMED Code(s): 47613531 Comment: - Continue cymbalta and Seroquel - Hx of benzo abuse problems in the past (6) Afib Code(s): I48.91 - UNSPECIFIED ATRIAL FIBRILLATION SNOMED Code(s): 36093590 Comment: - Sinus rhythm at this time - Continue diltiazem and eliquis (7) CAD (coronary artery disease) Code(s): I25.10 - ATHSCL HEART DISEASE OF [place] CORONARY ARTERY W/O ANG PCTRS SNOMED Code(s): 30832887 Comment: - Stable - Known CAD with lesion of LAD and total occlusion of posterior decending artery , not stentable - Continue beta luis f, plavix, statin, and cardizem (8) COPD (chronic obstructive pulmonary disease) Code(s): J44.9 - CHRONIC OBSTRUCTIVE PULMONARY DISEASE, UNSPECIFIED SNOMED Code(s): 24017890 Comment: - No signs of exacerbation at this time - With hx of lung CA, partial lobectomy and recurrent PNA - Continue inhalers and supportive care (9) Depression Code(s): F32.9 - MAJOR DEPRESSIVE DISORDER, SINGLE EPISODE, UNSPECIFIED SNOMED Code(s): 04745875 Comment: - Continue duloxetine and seroquel. (10) GERD (gastroesophageal reflux disease) Code(s): K21.9 - GASTRO-ESOPHAGEAL REFLUX DISEASE WITHOUT ESOPHAGITIS SNOMED Code(s): 858427096 Comment: - Continue Pantoprazole BID (11) H/O: CVA (cerebrovascular accident) Code(s): Z86.73 - PRSNL HX OF TIA (TIA), AND CEREB INFRC W/O RESID DEFICITS SNOMED Code(s): 346753720 Comment: - Significant residual left sided weakness. - Continue atorvastatin, eliquis and plavix (12) HLD (hyperlipidemia) Code(s): E78.5 - HYPERLIPIDEMIA, UNSPECIFIED SNOMED Code(s): 29134743 Comment: - Continue lipitor. (13) History of lung cancer Code(s): Z85.118 - PERSONAL HISTORY OF MALIGNANT NEOPLASM OF [place] AND LUNG SNOMED Code(s): 397869645 Comment: - Needs f/u chest CT, previous CT in Dec with small nodule. - Follows with Dr. Cloud. 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 (14) History of pulmonary embolism Code(s): Z86.711 - PERSONAL HISTORY OF PULMONARY EMBOLISM SNOMED Code(s): 129229546 Comment: - Low suspicion of PE now as on eliquis - With history DVT - Continue eliquis (15) Hypertension Code(s): I10 - ESSENTIAL (PRIMARY) HYPERTENSION SNOMED Code(s): 59321619 Comment: - Hypotensive to normotensive, SBP 70-120's - Continue amlodipine, metoprolol and diltiazem (16) Hypothyroidism Code(s): E03.9 - HYPOTHYROIDISM, UNSPECIFIED SNOMED Code(s): 18126845 Comment: - TSH 2.05 - Continue synthroid (17) DVT prophylaxis Code(s): PPQ4454 - SNOMED Code(s): 953279320 Comment: - Continue eliquis (18) Full code status Code(s): Z78.9 - OTHER SPECIFIED HEALTH STATUS SNOMED Code(s): 827709372 Status and Disposition: OBV. Discharge to home when medically stable, possible later today or in the AM.
[2017-11-21 09:48] LABS: Hematocrit 26 % (35-47); Hemoglobin 8.6 g/dl (12.0-16.0); Mean Corpuscular HGB Conc 33 g/dl (31-36); Mean Corpuscular Hemoglobin 27 pg (27-31); Mean Corpuscular Volume 81 fL (80-97); Platelet Count 393 10^3/ul (150-450); Red Blood Count 3.18 10^6/ul (4.00-5.40); Red Cell Distribution Width 18 % (10.5-15); White Blood Count 4.6 10^3/ul (3.5-10.8)
[2017-11-21 10:23] LABS: Monocytes % 12 % (0-7)
[2017-11-21 10:47] LABS: EGFR Non-African American 78.5 (>60)
[2017-11-21] MEDS ORDERED: Magnesium Sulfate IV* 3 GM in NS 0.9% 100 ML* 100 ML IVPB ONE (11:21)
[2017-11-21] MEDS: Pantoprazole TAB (NF) 40 MG TAB PO SCH (11:23)
[2017-11-21] MEDS ORDERED: NS 0.9% 100 ML* 100 ML ONE (11:41)
[2017-11-21 12:08] VITALS: BP 98/60
--- NOTE | 2017-11-21 23:14 | DS ---
CC: Dr. Nimco Cloud; Guerrero Gtz NP * DISCHARGE SUMMARY: DATE OF ADMISSION: 11/20/17 DATE OF DISCHARGE: 11/21/17 ATTENDING PHYSICIAN: Dr. See Nelson * (dictated by Tomas Bello NP) PRIMARY CARE PROVIDER: Guerrero Gtz NP PRIMARY ONCOLOGIST: Dr. Nimco Cloud. PRIMARY DIAGNOSES: 1. Chest pain, suspect secondary to muscular strain. 2. Hyponatremia, chronic, appears to be near baseline. 3. Hypokalemia, resolved. 4. Hypomagnesium, continue oral replacement. SECONDARY DIAGNOSES: 1. History of lung cancer with chronic obstructive pulmonary disease. 2. Gastroesophageal reflux disease. 3. Coronary artery disease. 4. History of deep venous thrombosis. 5. Atrial fibrillation. 6. Hypertension. 7. Hypothyroidism. 8. Chronic pain. 9. History of cerebrovascular accident with residual left-sided weakness. 10. History of pulmonary embolism. 11. Anxiety. 12. Opioid drug abuse. STUDIES WHILE IN THE HOSPITAL: Chest x-ray from 11/20/17. Radiologist's impression: Left-sided thoracotomy with chronic pleural and parenchymal changes , no acute findings. DISCHARGE MEDICATIONS: Continued home medications: 1. Levothyroxine 175 mcg oral daily. 2. Albuterol HFA inhaler 2 puffs inhalation every 4 hours as needed for shortness of breath or wheeze. 3. Atrovent 0.5 mg nebulizer, 0.5 mg inhalation 4 times daily as needed for shortness of breath or wheeze. 4. Flovent HFA inhaler 220 mcg 1 puff inhalation twice daily. 5. Duloxetine 60 mg oral daily. 6. Atorvastatin 40 mg oral daily. 7. Plavix 75 mg oral daily. 8. Gabapentin 300 mg oral twice daily as needed for pain. 9. Diltiazem CD 120 mg oral daily. 10. Albuterol 2.5 mg/3 mL neb, 2.5 mg inhalation every 4 hours as needed for shortness of breath or wheeze. 11. Eliquis 5 mg oral twice daily. 12. Acetaminophen 650 mg oral every 6 hours as needed for fever or pain. 13. Sodium chloride 1 g oral daily. 14. Metoprolol succinate XL 25 mg oral daily. 15. Omeprazole 40 mg oral twice daily. 16. Vitamin D 2000 units oral daily. 17. Colace 200 mg oral twice daily. 18. Magnesium oxide 400 mg oral daily. 19. Amlodipine 5 mg oral daily. 20. Seroquel 200 to 300 mg oral daily at bedtime. HISTORY OF PRESENT ILLNESS/HOSPITAL COURSE: Ms. Glover is a 67-year-old female with a past medical history significant for lung cancer, status post left upper lobe lobectomy; hyponatremia; hypothyroidism; atrial fibrillation; chronic pain; coronary artery disease with LAD stenosis up to 65%, on medical management; COPD; anemia; hypertension; tobacco abuse; CVA with residual left- sided weakness; GI bleed secondary to NSAID use; hyperlipidemia; history of PE; history of chronic opioid and benzo use and abuse; anxiety, who presented to the hospital with concerns of chest pain. She last underwent a cardiac catheterization in 2017 recommending medical management after finding stenosis in her LAD. The patient is on Plavix and Eliquis. She has a history of hyponatremia. The patient was last hospitalized in September of this year. When she was discharged, she went to [facility] where she was discharged on and has been home since then. The patient states she had been doing well since then, but developed some nausea and lightheadedness and general malaise. She slept poorly the night prior to her presentation waking with discomfort. She described a chest heaviness in the center of her chest to the left side of her chest associated with tingling in her left arm. The patient does have a history of CVA with residual left arm weakness. The patient reports that she lives alone taking care of herself and does not have extra services coming in, as she was discharged from [facility], as she "filled her own med boxes." Due to her symptoms, she presented to the emergency room. While in the emergency room, the patient had an initial troponin that was negative, an EKG showing no evidence of acute ischemia. She had a chest x-ray without significant findings and other labs that were unremarkable with the exception of hyponatremia, which was near the patient's baseline as she chronically has hyponatremia. Due to the patient's known coronary artery disease and LAD stenosis, the hospitalists were asked to evaluate the patient for admission. During the patient's hospitalization, her troponins were trended and they were negative. She intermittently complained to staff that she had chest discomfort. This pain was reproducible with palpation and it was felt to be secondary to muscular pain. Her last stress test was in April of 2017 at the same time of her cardiac catheterization. Her stress test was intermediate risk showing an area of fixed ischemia. The patient reported feeling weak today and is encouraged to ambulate. Her sodium improved with some IV hydration. She was noted to have hypomagnesium and received replacement. She had hypokalemia on admission; this resolved. When the patient came in, her hemoglobin and hematocrit were actually above her baseline. I suspect this was secondary to some mild dehydration. She returned to her baseline. H and H were right around 8. She had thrombocytosis that also resolved with IV hydration. The patient was doing well. It was felt that she could be discharged home today. Ms. Glover is stable for discharge to home. Vital signs are as follows: Temperature 99.5, heart rate 101, respiratory rate 16, O2 sat 99% on room air, blood pressure 98/60. DISCHARGE PLAN: Ms. Glover will be discharged to home. Activities as tolerated. She will be on heart-healthy diet. In regards to her chest pain, I suspect this is noncardiac in nature as it reproducible with palpation. She has been encouraged to use Tylenol for pain. At this time, I am not comfortable giving her anything stronger for pain due to her history of opioid abuse. Regards to the patient's other chronic medical condition, she has been continued on all of her usual home medications. It appears that she is overdue for followup chest CT to follow up a lung nodule. She has been asked to call Dr. Cloud's office to set up a followup appointment, as due to her multiple hospitalizations, has missed followup appointments. She has been asked to call her primary care provider, Guerrero Gtz's office in the morning to set up a followup appointment for this week. She has been asked to return to the emergency room for any changes in her chest discomfort or shortness of breath. This is a summarized report of a complex medical history and hospital stay. For further details, please see the entire medical record. TIME SPENT: Time for this discharge was approximately 50 minutes, greater than half of that was spent with the patient discussing discharge plans and instructions. CONDITION ON DISCHARGE: Stable. TOMAS CONNOR, NURSE REVIEWER [id number]/[facility] #: [id number] NICOLE
== END 2017-11-21 16:12 | disposition home or self-care (01) ==
LOC: ED 11:27 → MEDTELE 16:00 → UNDOADMOB 16:03 → MEDTELE 16:03
PROVIDERS: ADMIT Internal Medicine; ATTEND Internal Medicine
DX: R07.9 Chest pain, unspecified (principal); E87.1 Hypo-osmolality and hyponatremia; E83.42 Hypomagnesemia; J44.9 Chronic obstructive pulmonary disease, unspecified; Z85.118 Personal history of other malignant neoplasm of bronchus and lung; R06.02 Shortness of breath; I25.10 Atherosclerotic heart disease of native coronary artery without angina pectoris; I48.91 Unspecified atrial fibrillation; Z86.718 Personal history of other venous thrombosis and embolism; Z79.01 Long term (current) use of anticoagulants; I10 Essential (primary) hypertension; E03.9 Hypothyroidism, unspecified; G89.29 Other chronic pain; I69.354 Hemiplegia and hemiparesis following cerebral infarction affecting left non-dominant side; Z86.711 Personal history of pulmonary embolism; F41.9 Anxiety disorder, unspecified; F11.10 Opioid abuse, uncomplicated; Z79.899 Other long term (current) drug therapy; Z88.6 Allergy status to analgesic agent; D64.9 Anemia, unspecified; F17.210 Nicotine dependence, cigarettes, uncomplicated; F32.9 Major depressive disorder, single episode, unspecified; E87.8 Other disorders of electrolyte and fluid balance, not elsewhere classified; K21.9 Gastro-esophageal reflux disease without esophagitis; R94.31 Abnormal electrocardiogram [ECG] [EKG]
CPT/HCPCS: 36415; 71045; 80048; 80053; 82550; 82553; 83605; 83690; 83735; 83880; 84443; 84484; 85025; 85379; 85610; 85730; 86140; 93005; 94640; 96361; 96365; 96366; 96375; 99284; A9270-GY; G0378; J2270; J3475

== ENCOUNTER 2017-11-23 08:44 | Inpatient (IN) | payer MEDICARE, BC ==
[2017-11-23] MEDS ORDERED: Ketorolac INJ* 30 MG/ML 1 ML VIAL IV PUSH ONE (09:41)
[2017-11-23] MEDS ORDERED: Metoclopramide IV* 5 MG/ML 2 ML VIAL IV SLOW PU ONE (09:41)
[2017-11-23 10:06] LABS: Hematocrit 28 % (35-47); Mean Corpuscular HGB Conc 33 g/dl (31-36); Mean Corpuscular Hemoglobin 26 pg (27-31); Mean Corpuscular Volume 80 fL (80-97); Mean Platelet Volume 7.3 um3 (7.4-10.4); Platelet Count 513 10^3/ul (150-450); Red Blood Count 3.45 10^6/ul (4.00-5.40); Red Cell Distribution Width 18 % (10.5-15); White Blood Count 7.3 10^3/ul (3.5-10.8)
[2017-11-23 10:10] LABS: EGFR Non-African American 83.7 (>60)
[2017-11-23 10:25] LABS: ABS Basophils 0.1 10^3/ul (0-0.2); ABS Neutrophils 3.7 10^3/ul (1.5-7.7); ABS Neutrophils 4.7 10^3/ul (1.5-7.7); Monocytes % 10 % (0-7)
[2017-11-23 12:29] LABS: Urine Appearance Clear; Urine Blood Negative (Negative); Urine Color Yellow; Urine Ketones Negative (Negative); Urine Protein 2+(100 mg/dL) (Negative); Urine Red Blood Cell Absent (Absent); Urine Specific Gravity 1.008 (1.010-1.030); Urine Urobilinogen Negative (Negative); Urine White Blood Cell Trace(0-5/hpf) (Absent)
[2017-11-23] MEDS ORDERED: Magnesium Oxide TAB* 400 MG PO ONE (14:12)
[2017-11-23] MEDS ORDERED: Dexamethasone IV* 4 MG/ML 1 ML (4 MG) IV SLOW PU ONE (15:17)
[2017-11-23] MEDS ORDERED: PROCHLORPERAZINE INJ 5 MG/ML 2 ML VIAL IV ONE (15:17)
[2017-11-23] MEDS ORDERED: Acetaminophen TAB* 325 MG PO PRN (17:14)
[2017-11-23] MEDS ORDERED: Albuterol 2.5 MG/3 ML NEB.SOL* (0.083%) INH PRN (17:14)
[2017-11-23] MEDS ORDERED: Albuterol HFA INHALER* 8 gm MDI INH PRN (17:14)
[2017-11-23] MEDS ORDERED: Gabapentin CAP(*) 300 MG PO PRN (17:14)
[2017-11-23] MEDS ORDERED: Ipratropium 0.5MG/2.5ML NEB* 0.5 MG/2.5 ML NEB.SOLN INH PRN (17:14)
[2017-11-23] MEDS ORDERED: Mometasone 220 MCG MDI INH SCH (18:00)
[2017-11-23] MEDS: CMCS:Pantoprazole TAB (NF) 40 MG TAB PO SCH (20:37)
[2017-11-23] MEDS: Apixaban* 5 MG TAB PO SCH (20:37)
[2017-11-23] MEDS ORDERED: QUEtiapine TAB* 100 MG PO SCH (21:00)
[2017-11-23] MEDS ORDERED: NS 0.9% 1000 ML* 1,000 ML IV SCH (23:30)
--- NOTE | 2017-11-24 02:34 | HP ---
CC: Guerrero Gtz NP * HISTORY AND PHYSICAL: DATE OF ADMISSION: 11/23/17 PRIMARY CARE PROVIDER: Guerrero Gtz NP PRIMARY ONCOLOGIST: Nimco Cloud MD ATTENDING PHYSICIAN: Master Durant MD * (dictated by Chrissy Bello NP) CHIEF COMPLAINT: Falls at home and diarrhea. HISTORY OF PRESENT ILLNESS: Ms. Glover is a 67-year-old female with past medical history significant for lung cancer status post left upper lobe lobectomy, hyponatremia, hypothyroidism, atrial fibrillation, chronic pain, coronary artery disease with known LAD stenosis up to 65% on medical management , COPD, anemia, hypertension, history of tobacco abuse, cerebrovascular accident with left-sided residual weakness, history of GI bleed secondary to NSAID use, hyperlipidemia, history of PE, history of opioid and benzo use, currently not on any medications, and anxiety who is well known to the hospitalist service. This was her 12th admission this year. The patient was previously admitted from 11/20/17 to 11/21/17 with chest pain, suspect secondary to muscular strain, hyponatremia that is chronic, hypokalemia, and hypomagnesemia. During that admission, the patient was monitored overnight intermittently complaining of chest discomfort. Her pain was reproducible with palpation. It was felt this was likely secondary to muscular pain. The patient last had a cardiac stress test in April 2017. Her stress test showed an intermediate risk with an area of fixed ischemia. At the same time, she under went a cardiac catheterization, showing LAD stenosis up to 65% with recommendations for medical treatment. During her previous stay, she was hyponatremic, but this was near her baseline. The patient's anemia was at her baseline. Her thrombocytosis resolved with hydration. She was encouraged to go home, follow up with her primary care provider, Guerrero Gtz NP in addition to call and follow up with Dr. Cloud for a chest CT. She was overdue to follow up on a new lung nodule with Dr. Cloud. The patient states that she had been feeling well when she was initially discharged on Wednesday, 2 days ago, but states yesterday, she had 3 episodes of loose stools. She reports falling including falling on her face earlier today. She reports losing approximately 25 pounds since May but according to the hospital records, the patient has been stable, weighed around 100 pounds since back in 2012 when she was around 120 pounds. She states that she has been eating and drinking well, has access to food. She feels that at this point she needs to consider senior care placement, but she does not want to go to a senior care and would rather go to assisted living facility. She reports today that she left [facility] on 10/21/17 against medical advice 2 days prior to being evaluated by the [facility] for possible admission to their assisted living facility. The patient states she left against medical advice because she was no longer receiving therapy and she did not feel as though she should be paying to stay at a place where she was no longer receiving therapy. Due to the patient's falls and headache, she presented to the emergency room for further evaluation. While in the emergency room today, she had labs showing stable anemia with her hemoglobin and hematocrit near her baseline. She has a mild thrombocytosis, which is intermittently chronic for her, mild hyponatremia, which is rate around her baseline. She has hypomagnesemia, which is also a chronic issue. She is on oral replacement. She had a troponin that was 0. Negative urinalysis. The patient was reporting being unable to walk, but was seen ambulating independently around the emergency room with a steady gait. The patient was seen in consultation by social work. Arrangements were made for the patient to have assessment by the [facility] tomorrow at 10:30 a.m. per the patient. Hospitalists were asked to evaluate the patient for admission. The patient denies fevers, chills, chest pain, shortness of breath above her baseline or vomiting. As previously mentioned, she reports diarrhea and some mild nausea. PAST MEDICAL HISTORY: 1. Lung cancer status post left upper lobectomy. 2. Hyponatremia. 3. Hypothyroidism. 4. Atrial fibrillation. 5. Chronic pain. 6. Coronary artery disease with known LAD stenosis up to 65% on medical management. 7. COPD. 8. Anemia. 9. Hypertension. 10. History of tobacco abuse. 11. Cerebrovascular accident with left-sided weakness, residual. 12. History of GI bleed secondary to NSAID use. 13. Hyperlipidemia. 14. History of PE. 15. History of chronic opioid and benzo abuse, not currently taking. PAST SURGICAL HISTORY: 1. Status post upper lobe lobectomy. 2. Status post tonsillectomy. 3. Status post hysterectomy. HOME MEDICATIONS: Include: 1. Levothyroxine 175 mcg oral daily. 2. Albuterol HFA inhaler 2 puffs inhalation every 4 hours as needed for shortness of breath or wheeze. 3. Atrovent 0.5 mg nebulizer 1 inhalation 4 times daily as needed for shortness of breath or wheeze. 4. Flovent HFA inhaler 220 mcg 1 puff inhalation twice daily. 5. Duloxetine 60 mg oral daily. 6. Atorvastatin 40 mg oral daily. 7. Plavix 75 mg oral daily. 8. Gabapentin 300 mg oral twice daily as needed for pain. 9. Diltiazem CD 120 mg oral daily. 10. Albuterol 2.5 mg/3 mL neb 1 inhalation every 4 hours as needed for shortness of breath or wheeze. 11. Eliquis 5 mg oral twice daily. 12. Acetaminophen 650 mg oral every 6 hours as needed for fever or pain. 13. Sodium chloride 1 g tablet oral daily. 14. Metoprolol succinate 25 mg oral daily. 15. Omeprazole 40 mg oral twice daily. 16. Vitamin D 2000 units oral daily. 17. Colace 200 mg oral twice daily. 18. Magnesium oxide 400 mg oral daily. 19. Amlodipine 5 mg oral daily. 20. Seroquel 200 to 300 mg oral daily at bedtime. ALLERGIES: ASPIRIN and LATEX. FAMILY HISTORY: The patient's mother had a history of ulcerative colitis and dad with a history of coronary artery disease. Great aunt with a history of diabetes mellitus. She denies any family history of cancer. The patient had 2 sons, who have passed, one from suicide and one secondary to complications from alcohol withdrawal. SOCIAL HISTORY: The patient is a current smoker, smoking approximately 5 cigarettes daily. She denies alcohol or recreational drug use. Her daughter, Elyssa, will be her surrogate decision maker in the event she is unable to make decisions for herself. REVIEW OF SYSTEMS: I performed an 11-point review of systems. All the pertinent positives and negatives are mentioned in the history of present illness. PHYSICAL EXAMINATION GENERAL APPEARANCE: The patient is alert, pleasant, appears to be in no acute distress. VITAL SIGNS: Temperature 98.8, heart rate 88, respiratory rate 18, O2 sat 100% on room air, blood pressure 150/81. HEENT: Normocephalic, atraumatic. Pupils are equal and reactive to light. Extraocular movements are intact. RESPIRATORY: There is no accessory muscle use. The lungs are clear to auscultation, bilateral. CARDIOVASCULAR: Regular rate and rhythm. S1, S2 present. There are no murmurs , rubs, or gallops heard. ABDOMEN: Soft, nontender, nondistended. Bowel sounds present x4. EXTREMITIES: No lower extremity edema. DP and PT pulses are 2+ and symmetric. MUSCULOSKELETAL: There is no clubbing or cyanosis noted. The patient exhibits good strength in all extremities with the exception of her left upper extremity , which she has chronic weakness. NEUROLOGICAL: The patient is alert and oriented x4. Cranial nerves II through XII are grossly intact. PSYCHOLOGICAL: The patient is calm and cooperative. SKIN: The patient has some areas of ecchymosis on her arm. No other rashes or abnormalities were seen. DIAGNOSTIC STUDIES/LABORATORY DATA: Sodium 127, potassium 3.5, chloride 95, CO2 24, BUN 10, creatinine 0.70, glucose 111. Magnesium 1.6. White blood cell count 7.3, hemoglobin 9.0, hematocrit 28, platelet count 513. Urinalysis unremarkable. EKG from today shows a normal sinus rhythm, rate of 85, there are no acute signs of ischemia. Her EKGs are similar when compared to previous EKG from and 10/03/17. IMPRESSION: Ms. Glover is a 67-year-old female with past medical history significant for chronic obstructive pulmonary disease, lung cancer status post left upper lobe lobectomy, anxiety, hypothyroidism, chronic pain, hyperlipidemia , hypertension, cerebrovascular accident, who presented to the emergency room after being discharged 2 days prior for chest pain reporting falls at home and a headache. The patient stated that if she was discharged, she would immediately return. The plan is to admit the patient skilled nursing and will assist her with placement. At this time, she is currently agreeable to assisted living. ASSESSMENT/PLAN: 1. Mcfp care. The patient has already been seen in consultation by social work. The plan is for her to have assessment by the [facility] for possible placement. 2. Hypertension. The patient has been normotensive to hypertensive in the emergency room. She will be continued on her home amlodipine, metoprolol, and diltiazem. 3. History of deep vein thrombosis. The patient will be continued on Eliquis. 4. History of coronary artery disease. The patient will be continued on her home Plavix and metoprolol and statin. 5. Gastroesophageal reflux disease. The patient will be continued on omeprazole. 6. Hypothyroidism. The patient will be continued on levothyroxine. 7. History of lung cancer with chronic obstructive pulmonary disease. The patient will be continued on her home inhalers. There are no signs of an acute exacerbation at this time. It is noted that she has a lung nodule that needs followup with Dr. Cloud at some point if we can get her there for a followup. She has been hospitalized too many times to get followup appointment. 8. Hyponatremia. The patient chronically has hyponatremia. I suspect this is secondary to syndrome of inappropriate antidiuretic hormone secondary to her lung cancer. She will be continued on her sodium replacement. Again, she is at her baseline. 9. Atrial fibrillation. The patient is currently in a sinus rhythm. She will be continued on her home Eliquis and metoprolol. 10. Chronic pain. The patient is currently not on any narcotics or benzos. She does have a history of medication abuse. 11. Coronary artery disease with known LAD stenosis up to 65%. The patient is on medical management. She will be continued on her Plavix, statin, and metoprolol. 12. Anemia. The patient is at her baseline. 13. Tobacco abuse. The patient has been encouraged to stop smoking. 14. History of cerebrovascular accident. The patient will be continued on her home Plavix. 15. Fluids, electrolytes, and nutrition. The patient will be on a heart- healthy diet. 16. DVT prophylaxis. She is at highest risk and will be continued on Eliquis. 17. Code status. Full code. 18. Disposition. [facility]fp care. Social work is working to assist the patient in getting into assisted care. TIME SPENT: Time for this admission was approximately 60 minutes, greater than half of that was spent with the patient discussing medications, past medical history, and the events leading up to her arrival today, performing a physical examination. The case has been reviewed with the attending, Dr. Durant, who agrees with the plan of care. Reviewed by KAJAL JEAN-BAPTISTE 12/06/17 1804 [id number]/[facility] #: [id number] NICOLE
[2017-11-24] MEDS ORDERED: Levothyroxine TAB* 175 MCG TAB PO SCH (06:00)
--- NOTE | 2017-11-24 08:11 | PN ---
Subjective Date of Service: 11/24/17 Interval History: Patient states she has had 2-4 loose BM's for years. She stats she has lost 25 lbs in past year despite a good appetite, doesn't know why she lost weight. No SOB. Objective Active Medications: Acetaminophen (Tylenol Tab*) 650 mg PO Q6H PRN PRN Reason: FEVER/PAIN Last Admin: 11/23/17 20:37 Dose: 650 mg Albuterol (Ventolin 2.5 Mg/3 Ml Neb.Tracey*) 2.5 mg INH Q4H PRN PRN Reason: SOB/WHEEZING Albuterol (Ventolin Hfa Inhaler*) 2 puff INH Q4H PRN PRN Reason: SOB/WHEEZING Amlodipine Besylate (Norvasc Tab*) 2.5 mg PO DAILY [facility] Apixaban (Eliquis*) 5 mg PO BID [facility] Last Admin: 11/23/17 20:37 Dose: 5 mg Atorvastatin Calcium (Lipitor*) 40 mg PO 1700 [facility] Cholecalciferol (Vitamin D Tab*) 2,000 units PO DAILY [facility] Clopidogrel Bisulfate (Plavix Tab*) 75 mg PO DAILY [facility] Diltiazem HCl (Cardizem Cd Cap*) 120 mg PO DAILY [facility] Duloxetine HCl (Cymbalta Cap*) 60 mg PO DAILY [facility] Gabapentin (Neurontin Cap(*)) 300 mg PO BID PRN PRN Reason: PAIN Last Admin: 11/23/17 20:43 Dose: 300 mg Ipratropium [place] (Atrovent 0.5 Mg Neb.Tracey*) 0.5 mg INH QID PRN PRN Reason: SOB/WHEEZING Levothyroxine Sodium (Synthroid Tab*) 175 mcg PO DAILY@0600 [facility] Last Admin: 11/24/17 06:31 Dose: 175 mcg Metoprolol Succinate (Toprol Xl Tab*) 25 mg PO DAILY [facility] Mometasone Furoate (Asmanex 220 Mcg Mdi *) 2 puff INH QPM [facility] Last Admin: 11/23/17 20:45 Dose: 2 puff Pantoprazole Sodium (Protonix Tab (Nf)) 40 mg PO BID [facility] Last Admin: 11/23/17 20:37 Dose: 40 mg Quetiapine Fumarate (Seroquel Tab*) 200 mg PO BEDTIME [facility] Last Admin: 11/23/17 20:37 Dose: 200 mg Sodium Chloride (Sodium Chloride Tab*) 1 gm PO DAILY [facility] Vital Signs - 8 hr 11/24/17 03:14 Temperature 97.6 F Pulse Rate 103 Respiratory 18 Rate Blood Pressure 132/74 (mmHg) O2 Sat by Pulse 100 Oximetry Oxygen Devices in Use Now: None Appearance: Alert, supine in bed. In good spirits. Looks comfortable. Eyes: No Scleral Icterus Neck: NL Appearance and Movements; NL JVP, No Thyroid Enlargement, Masses Respiratory: Symmetrical Chest Expansion and Respiratory Effort, Clear to Auscultation, Clear to Percussion Cardiovascular: RRR, No Edema, - - 3/6 systolic murmur across precordium Extremities: No Edema, No Clubbing, Cyanosis, - Skin: No Rash or Ulcers, No Nodules or Sclerosis, - Neurological: Alert and Oriented x 3, NL Sensation Result Diagrams: 11/23/17 09:35 11/23/17 09:35 Assess/Plan/Problems-Billing Assessment: - Patient Problems (1) CAD (coronary artery disease) Current Visit: No Status: Chronic Priority: High Code(s): I25.10 - ATHSCL HEART DISEASE OF [place] CORONARY ARTERY W/O ANG PCTRS SNOMED Code(s): 41253569 Comment: - Stable - Known CAD with lesion of LAD and total occlusion of posterior decending artery , not stentable - Continue beta luis f, plavix, statin, and cardizem (2) COPD (chronic obstructive pulmonary disease) Current Visit: No Status: Chronic Code(s): J44.9 - CHRONIC OBSTRUCTIVE PULMONARY DISEASE, UNSPECIFIED SNOMED Code(s): 30737470 Comment: - No signs of exacerbation at this time - With hx of lung CA, partial lobectomy and recurrent PNA - Continue inhalers and supportive care (3) Anemia Current Visit: No Status: Acute Code(s): D64.9 - ANEMIA, UNSPECIFIED SNOMED Code(s): 548256207 Comment: Chronic, stable. (4) Hyponatremia Current Visit: No Status: Chronic Priority: Medium Code(s): E87.1 - HYPO- OSMOLALITY AND HYPONATREMIA SNOMED Code(s): 83123267 Comment: - Chronic, suspect she is at her baseline - Suspect secondary to SIADH in setting of HX lung CA I discussed fluid restriction with the patient 11/24/17. - Continue sodium tabs - Will stop IVFs if sodium is ok this AM (5) Afib Current Visit: No Status: Chronic Code(s): I48.91 - UNSPECIFIED ATRIAL FIBRILLATION SNOMED Code(s): 62674868 Comment: - Sinus rhythm at this time - Continue diltiazem and eliquis (6) Tobacco abuse Current Visit: No Status: Acute Code(s): Z72.0 - TOBACCO USE SNOMED Code(s ): 626234758 Comment: Patient advised to quit smoking and avoid second hand smoke. She declined nicotine replacement tx. (7) Hypothyroidism Current Visit: No Status: Chronic Code(s): E03.9 - HYPOTHYROIDISM, UNSPECIFIED SNOMED Code(s): 06336080 Comment: - TSH 2.05 11/20/17. Due to her hx of poor med compliance, would re-check TSH after 1 month of supervised care.
[2017-11-24] MEDS ORDERED: Cholecalciferol TAB* 1000 UNITS PO SCH (09:00)
[2017-11-24] MEDS ORDERED: Diltiazem CD CAP* 120 MG PO SCH (09:00)
[2017-11-24] MEDS ORDERED: amLODIPine TAB* 5 MG PO SCH ×2 (09:00)
[2017-11-24] MEDS ORDERED: Sodium Chloride TAB* 1 GM PO SCH (09:00)
[2017-11-24] MEDS ORDERED: DULoxetine DR CAP* 60 MG CAP.DR PO SCH (09:00)
[2017-11-24] MEDS ORDERED: Metoprolol Succinate XL TAB* 25 MG PO SCH (09:00)
[2017-11-24] MEDS ORDERED: Clopidogrel TAB* 75 MG PO SCH (09:00)
[2017-11-24 09:36] VITALS: BP 146/90
[2017-11-24] MEDS: Apixaban* 5 MG TAB PO SCH (09:36)
[2017-11-24] MEDS: CMCS:Pantoprazole TAB (NF) 40 MG TAB PO SCH (09:36)
--- NOTE | 2017-11-24 12:01 | ED ---
Hammad Winkler Angela, scribed for Filiberto Rico MD on 11/23/17 at 0933 . Abdominal Pain/Female - HPI Summary HPI Summary: This pt is a 67 y/o female presenting to [facility] via EMS c/o abdominal pain and nausea since yesterday. Pt reports she has had nausea since yesterday. She was recently seen in the ED for nausea and chest pain on 11/20/17, pt notes she was given Zofran with relief. She was admitted on 11/20/17 and discharged on . Pt was given a prescription for Zofran but was unable to get it filled because she does not get paid until tomorrow. Additionally pt developed a headache yesterday. She notes she is prone to headaches and has a hx of migraines. Pt describes headache starts at the top of her head and radiates down the middle. Denies chest pain, SOB. She reports she has fallen twice since yesterday at home, today she fell on her face. Pt also states she has lost approximately 25 lbs since May. 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 Her PCP is Guerrero Gtz NP. - History of Current Complaint Chief Complaint: EDNauseaVomitDiarrh Stated Complaint: HEADACHE/NAUSEA Time Seen by Provider: 11/23/17 08:49 Hx Obtained From: Patient Onset/Duration: Lasting Days - 1, Still Present Timing: Days - 1 Severity Currently: Severe Pain Intensity: 9 - headache Pain Scale Used: 0-10 Numeric Aggravating Factor(s): Nothing Alleviating Factor(s): Nothing Associated Signs and Symptoms: Positive: Nausea, Vomiting Allergies/Adverse Reactions: Allergies Allergy/AdvReac Type Severity Reaction Status Date / Time aspirin Allergy Severe Anaphylatic Verified 11/20/17 11:30 Shock latex Allergy Mild Rash Verified 11/20/17 11:30 PMH/Surg Hx/FS Hx/Imm Hx Endocrine/Hematology History: Reports: Hx Thyroid Disease - hypothyroid, Other Endocrine/Hematological Disorders - Benign goiter Denies: Hx Bone Marrow Disease, Hx Diabetes, Hx Systemic Lupus Erythematosus Cardiovascular History: Reports: Hx Angina, Hx Atrial Fibrillation, Hx Hypercholesterolemia - was high before cancer,now off meds., Hx Hypertension, Hx Myocardial Infarction - NSTEMI, Other Cardiovascular Problems/Disorders - patent foramen ovale; Murmur, Denies: Hx Congestive Heart Failure, Hx Coronary Artery Disease, Hx Pacemaker /ICD, Hx Valvular Heart Disease Respiratory History: Reports: Hx Asthma, Hx Chronic Obstructive Pulmonary Disease (COPD), Hx Lung Cancer - Left upper lobectomy, Hx Pneumonia, Other Respiratory Problems/Disorders - lung cancer, LOBECTOMY 09/11/11, Emphysema GI History: Reports: Hx Gastroesophageal Reflux Disease, Hx Hiatal Hernia, Other GI Disorders - colitis. 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, Hx Osteoporosis, Hx Scoliosis, Other Musculoskeletal History - scoliosis Denies: Hx Rheumatoid Arthritis Sensory History: Reports: Hx Cataracts - PATIENT STATES BEGINING OF CATARACTS LEFT EYE, Hx Contacts or Glasses, Hx Hearing Problem - right Denies: Hx Hearing Aid Opthamlomology History: Reports: Hx Cataracts - PATIENT STATES BEGINING OF CATARACTS LEFT EYE, Hx Contacts or Glasses Neurological History: Reports: Hx CVA - in 05/16, Hx Headaches, Hx Migraine - Rare post menopause Psychiatric History: Reports: Hx Anxiety, Hx Depression, Hx Community Mental Health Tx, Hx Substance Abuse - opioids Denies: Hx Panic Disorder, Hx Inpatient Treatment - Cancer History Cancer Type, Location and Year: LUNG CA, DIAGNOSED July 2012 Hx Chemotherapy: Yes Hx Radiation Therapy: No Hx Palliative Cancer Treatment: No - Surgical History Surgery Procedure, Year, and Place: LEFT UPPER LUNG REMOVED 09/2012, HYSTERECTOMY , tonsillectomy Hx Anesthesia Reactions: No - Immunization History Date of Tetanus Vaccine: utd Date of Influenza Vaccine: utd Infectious Disease History: No Infectious Disease History: Denies: Hx of Known/Suspected MRSA, Traveled Outside the [place] in Last 30 Days - Family History Known Family History: Positive: Cardiac Disease - Sudden cardiac arrest (father) , Other - son -- glioblastoma. UC mother. Fhx of colitis. - Social History Alcohol Use: None Alcohol Amount: Unknown Hx Substance Use: No Substance Use Type: Reports: Prescribed Substance Use Comment - Amount & Last Used: percocet Hx Tobacco Use: Yes Smoking Status (MU): Heavy Every Day Tobacco Smoker Type: Cigarettes Amount Used/How Often: 1/2 pack a day Length of Time of Smoking/Using Tobacco: 47 years Have You Smoked in the Last Year: Yes Review of Systems Negative: Fever, Chills Negative: Erythema Negative: Sore Throat Negative: Chest Pain Negative: Shortness Of Breath, Cough Positive: Abdominal Pain, Nausea. Negative: Vomiting Negative: dysuria, hematuria Negative: Myalgia, Edema Negative: Rash Neurological: Other - NEG: dizziness Positive: Headache All Other Systems Reviewed And Are Negative: Yes Physical Exam - Summary Physical Exam Summary: Constitutional: Well-developed, Well-nourished, Alert. (-) Distressed Skin: Warm, Dry HENT: Normocephalic; Atraumatic Eyes: Conjunctiva normal Neck: Musculoskeletal ROM normal neck. (-) JVD, (-) Stridor, (-) Tracheal deviation Cardio: Rhythm regular, rate normal, Heart sounds normal; Intact distal pulses; The pedal pulses are 2+ and symmetric. Radial pulses are 2+ and symmetric. (-) Murmur Pulmonary/Chest wall: Effort normal. (-) Respiratory distress, (-) Wheezes, (-) Rales Abd: Soft, (-) Tenderness, (-) Distension, (-) Guarding, (-) Rebound Musculoskeletal: (-) Edema Lymph: (-) Cervical adenopathy Neuro: Alert, Oriented x3 Psych: Mood and affect Normal Triage Information Reviewed: Yes Vital Signs On Initial Exam: Initial Vitals Temp Pulse Resp BP Pulse Ox 99.1 F 93 20 129/84 96 11/23/17 08:49 11/23/17 08:49 11/23/17 08:49 11/23/17 08:49 11/23/17 08:49 Vital Signs Reviewed: Yes Diagnostics - Vital Signs Vital Signs Temp Pulse Resp BP Pulse Ox 11/23/17 09:19 22 163/97 11/23/17 09:00 19 11/23/17 08:49 99.1 F 93 22 129/84 96 - Laboratory Lab Results: Lab Results 11/23/17 11/23/17 11/23/17 Range/Units 09:35 09:35 09:35 WBC 7.3 (3.5-10.8) 10^3/ul RBC 3.45 L (4.00-5.40) 10^6/ul Hgb 9.0 L (12.0-16.0) g/dl Hct 28 L (35-47) % MCV 80 (80-97) fL MCH 26 L (27-31) pg MCHC 33 (31-36) g/dl RDW 18 H (10.5-15) % Plt Count 513 H D (150-450) 10^3/ul MPV 7.3 L (7.4-10.4) um3 Neut % (Auto) Not Reportable Lymph % (Auto) Not Reportable Throckmorton % (Auto) Not Reportable Eos % (Auto) Not Reportable Baso % (Auto) Not Reportable Absolute Neuts (auto) 3.7 (1.5-7.7) 10^3/ul Absolute Lymphs (auto) Not Reportable Absolute Monos (auto) Not Reportable Absolute Eos (auto) Not Reportable Absolute Basos (auto) Not Reportable Absolute Nucleated RBC Not Reportable Neutrophils % 65 (38-83) % Lymphocytes % 21 L (25-47) % Monocytes % 10 H (0-7) % Eosinophils % 3 (0-6) % Basophils % 1 (0-2) % Nucleated RBC % Not Reportable Abs Neuts (Manual) 4.7 (1.5-7.7) 10^3/ul Abs Lymphs (Manual) 1.5 (1.0-4.8) 10^3/ul Abs Monocytes (Manual) 0.7 (0-0.8) 10^3/ul Absolute Eos (Manual) 0.2 (0-0.6) 10^3/ul Abs Basophils (Manual) 0.1 (0-0.2) 10^3/ul Normal RBC Morphology Normal (Normal) Sodium 127 L (135-145) mmol/L Potassium 3.5 (3.5-5.0) mmol/L Chloride 95 L (101-111) mmol/L Carbon Dioxide 24 (22-32) mmol/L Anion Gap 8 (2-11) mmol/L BUN 10 (6-24) mg/dL Creatinine 0.70 (0.51-0.95) mg/dL Est GFR ( Amer) 101.3 (>60) Est GFR (Non-Af Amer) 83.7 (>60) BUN/Creatinine Ratio 14.3 (8-20) Glucose 111 H (70-100) mg/dL Lactic Acid 1.8 (0.5-2.0) mmol/L Calcium 8.8 (8.6-10.3) mg/dL Magnesium 1.6 L (1.9-2.7) mg/dL Total Bilirubin 0.30 (0.2-1.0) mg/dL AST 16 (13-39) U/L ALT 9 (7-52) U/L Alkaline Phosphatase 68 (34-104) U/L Troponin I 0.00 (<0.04) ng/mL C-Reactive Protein 1.07 (<8.01) mg/L Total Protein 6.1 L (6.4-8.9) g/dL Albumin 3.6 (3.2-5.2) g/dL Globulin 2.5 (2-4) g/dL Albumin/Globulin Ratio 1.4 (1-3) Lipase 23 (11.0-82.0) U/L Urine Color Urine Appearance Urine pH (5-9) Ur Specific [place] (1.010-1.030) Urine Protein (Negative) Urine Ketones (Negative) Urine Blood (Negative) Urine Nitrate (Negative) Urine Bilirubin (Negative) Urine Urobilinogen (Negative) Ur Leukocyte Esterase (Negative) Urine WBC (Auto) (Absent) Urine RBC (Auto) (Absent) Ur Squamous Epith Cells (Absent) Urine Bacteria (Absent) Urine Glucose (Negative) 11/23/17 11/23/17 Range/Units 11:31 14:12 WBC (3.5-10.8) 10^3/ul RBC (4.00-5.40) 10^6/ul Hgb (12.0-16.0) g/dl Hct (35-47) % MCV (80-97) fL MCH (27-31) pg MCHC (31-36) g/dl RDW (10.5-15) % Plt Count (150-450) 10^3/ul MPV (7.4-10.4) um3 Neut % (Auto) Lymph % (Auto) Throckmorton % (Auto) Eos % (Auto) Baso % (Auto) Absolute Neuts (auto) (1.5-7.7) 10^3/ul Absolute Lymphs (auto) Absolute Monos (auto) Absolute Eos (auto) Absolute Basos (auto) Absolute Nucleated RBC Neutrophils % (38-83) % Lymphocytes % (25-47) % Monocytes % (0-7) % Eosinophils % (0-6) % Basophils % (0-2) % Nucleated RBC % Abs Neuts (Manual) (1.5-7.7) 10^3/ul Abs Lymphs (Manual) (1.0-4.8) 10^3/ul Abs Monocytes (Manual) (0-0.8) 10^3/ul Absolute Eos (Manual) (0-0.6) 10^3/ul Abs Basophils (Manual) (0-0.2) 10^3/ul Normal RBC Morphology (Normal) Sodium (135-145) mmol/L Potassium (3.5-5.0) mmol/L Chloride (101-111) mmol/L Carbon Dioxide (22-32) mmol/L Anion Gap (2-11) mmol/L BUN (6-24) mg/dL Creatinine (0.51-0.95) mg/dL Est GFR ( Amer) (>60) Est GFR (Non-Af Amer) (>60) BUN/Creatinine Ratio (8-20) Glucose (70-100) mg/dL Lactic Acid 1.7 (0.5-2.0) mmol/L Calcium (8.6-10.3) mg/dL Magnesium (1.9-2.7) mg/dL Total Bilirubin (0.2-1.0) mg/dL AST (13-39) U/L ALT (7-52) U/L Alkaline Phosphatase (34-104) U/L Troponin I (<0.04) ng/mL C-Reactive Protein (<8.01) mg/L Total Protein (6.4-8.9) g/dL Albumin (3.2-5.2) g/dL Globulin (2-4) g/dL Albumin/Globulin Ratio (1-3) Lipase (11.0-82.0) U/L Urine Color Yellow Urine Appearance Clear Urine pH 6.0 (5-9) Ur Specific [place] 1.008 L (1.010-1.030) Urine Protein 2+(100 mg/dl) A (Negative) Urine Ketones Negative (Negative) Urine Blood Negative (Negative) Urine Nitrate Negative (Negative) Urine Bilirubin Negative (Negative) Urine Urobilinogen Negative (Negative) Ur Leukocyte Esterase Negative (Negative) Urine WBC (Auto) Trace(0-5/hpf) (Absent) Urine RBC (Auto) Absent (Absent) Ur Squamous Epith Cells Present A (Absent) Urine Bacteria Absent (Absent) Urine Glucose Negative (Negative) Result Diagrams: 11/23/17 09:35 11/23/17 09:35 Lab Statement: Any lab studies that have been ordered have been reviewed, and results considered in the medical decision making process. - EKG 09:24 Cardiac Rate: NL - at 85 bpm EKG Rhythm: Sinus Rhythm EKG Interpretation: No STEMI. Re-Evaluation - Re-Evaluation First Eval Re-Evaluation Time: 12:25 Comment: market garden worker in to see the pt. Second Eval Re-Evaluation Time: 15:19 Comment: I spoke with [place] social services specialist. She feels strongly that the pt should not go home. Pt told her she would return immediately if she was discharged home. Pt reports she has fallen twice since last night. She required 2 doses of IV pain medications for headache. Abdominal Pain Fem Course/Dx - Course Course Of Treatment: Pt is a 67 y/o female who presents with abdominal pain, nausea, and headache since yesterday. She was recently seen in the ED for nausea and chest pain on 11/20/17, pt notes she was given Zofran with relief. She was admitted on 11/20/17 and discharged on 11/21/17. Pt was given a prescription for Zofran but was unable to get it filled because she does not get paid until tomorrow. Denies chest pain, SOB. I reviewed November 21 discharge summary and it is significant for low magnesium, the need for IV fluids during hospitalization. Today lab results show hemoglobin of 9, hematocrit of 28, platelet count of 513, sodium of 127, magnesium of 1.6. In the ED course the pt was given Toradol, Reglan, magnesium oxide. Pt reports she cannot take care of herself at home and requested placement. market garden worker was consulted. [facility] social services specialist, feels strongly that the pt should not go home. Pt told her she would return immediately if she was discharged home. Pt reports she has fallen twice since last night. She required 2 doses of IV pain medications for headache while in the ED. I discussed pt care with Dr. Durant, hospitalist, who accepted the pt for admission. Pt will be a shelter admission. - Diagnoses Provider Diagnoses: Multiple falls, Hypomagnesemia - Provider Notifications Discussed Care Of Patient With: Sol Day Time Discussed With Above Provider: 15:19 Instructed by Provider To: Other - I discussed pt care with Marcia, social services specialist. She feels strongly that the pt should not go home. Pt told her she would return immediately if she was discharged home. [15:55] I spoke with Dr. Durant, hospitalist, who accepted the pt for admission. Discharge - Sign-Out/Discharge Documenting (check all that apply): Discharge/Admit/Transfer - Admit - Discharge Plan Condition: Stable Disposition: ADMITTED TO [facility] - Billing Disposition and Condition Condition: STABLE Disposition: Admitted to [facility] The documentation as recorded by the Hammad crawford Angela accurately reflects the service I personally performed and the decisions made by me, Filiberto Rico MD.
[2017-11-24] MEDS ORDERED: Atorvastatin* 40 MG TAB PO SCH (17:00)
--- NOTE | 2017-11-25 01:10 | DS ---
CC: Guerrero Gtz NP * DISCHARGE SUMMARY: DATE OF ADMISSION: DATE OF DISCHARGE: 11/24/17 HOSPITAL COURSE: This 67-year-old woman was admitted because of falling at home and diarrhea. Her diarrhea is really chronic. I do not think it is bothering so much. She was observed to ambulate in the [place]. I am not sure why she falls at home. There was some thought from the discharge planners and other providers that her extremely frequent admission rate here is related to the fact that she is lonely at home. We are going to assist her with getting the appointment with [facility]. We are going to assist her with applying for Medicaid, which she will need to go to the [facility]. She is getting some assistance for ride home as well. She has all her medications whether she complies with them or not I am not able to evaluate. I have not changed any of her medications at all. I will leave this to her primary provider. FINAL DIAGNOSES: 1. Chronic obstructive pulmonary disease 2. Coronary artery disease. 3. Chronic anemia. 4. Hyponatremia. 5. Atrial fibrillation. 6. Tobacco abuse. 7. Hypothyroidism. DISCHARGE MEDICATIONS: 1. Levothyroxine 175 mcg daily. 2. Albuterol inhaler 2 puffs every 4 hours p.r.n. 3. Ipratropium by nebulizer 0.5 mg 4 times a day p.r.n. 4. Fluticasone 220 mcg 1 puff b.i.d. 5. Duloxetine 60 mg daily. 6. Atorvastatin 40 mg at 1700 hrs. 7. Clopidogrel 75 mg daily. 8. Gabapentin 300 mg b.i.d. p.r.n. 9. Diltiazem CD 120 mg daily. 10. Albuterol by nebulizer 2.5 mg every 4 hours p.r.n. 11. Apixaban 5 mg b.i.d. 12. Acetaminophen 650 mg every 6 hours p.r.n. 13. Sodium chloride 1 g daily. 14. Metoprolol succinate 25 mg daily. 15. Omeprazole 40 mg b.i.d. 16. Cholecalciferol 2000 units daily. 17. Docusate 200 mg b.i.d. 18. Magnesium oxide 400 mg daily. 19. Amlodipine 5 mg daily. 20. Quetiapine as prescribed. [id number]/[facility] #: [id number] [id number]
== END 2017-11-24 13:45 | disposition home health service (06) | DRG 191 ==
LOC: ED 08:44 → MED 17:09 → OBSVTOIN 17:10
PROVIDERS: ADMIT Internal Medicine; ATTEND Internal Medicine
DX: J44.9 Chronic obstructive pulmonary disease, unspecified (principal); E87.1 Hypo-osmolality and hyponatremia; I69.354 Hemiplegia and hemiparesis following cerebral infarction affecting left non-dominant side; I25.10 Atherosclerotic heart disease of native coronary artery without angina pectoris; I11.9 Hypertensive heart disease without heart failure; E03.9 Hypothyroidism, unspecified; I48.91 Unspecified atrial fibrillation; G89.29 Other chronic pain; D64.9 Anemia, unspecified; E78.5 Hyperlipidemia, unspecified; F41.9 Anxiety disorder, unspecified; R51 Headache; F17.210 Nicotine dependence, cigarettes, uncomplicated; R19.7 Diarrhea, unspecified; D47.3 Essential (hemorrhagic) thrombocythemia; W19.XXXA Unspecified fall, initial encounter; Y92.009 Unspecified place in unspecified non-institutional (private) residence as the place of occurrence of the external cause; Z79.01 Long term (current) use of anticoagulants; Z79.1 Long term (current) use of non-steroidal anti-inflammatories (NSAID); Z86.711 Personal history of pulmonary embolism; Z85.118 Personal history of other malignant neoplasm of bronchus and lung; Z79.02 Long term (current) use of antithrombotics/antiplatelets; Z79.899 Other long term (current) drug therapy; Z88.6 Allergy status to analgesic agent; Z91.040 Latex allergy status; Z82.49 Family history of ischemic heart disease and other diseases of the circulatory system; Z83.3 Family history of diabetes mellitus; Z81.1 Family history of alcohol abuse and dependence; Z83.79 Family history of other diseases of the digestive system; Z75.1 Person awaiting admission to adequate facility elsewhere
CPT/HCPCS: 36415; 71045; 80048; 80053; 81003; 81015; 82550; 82553; 83605; 83690; 83735; 83880; 84443; 84484; 85025; 85379; 85610; 85730; 86140; 87086; 93005; 94640; 96361; 96365; 96366; 96375; 99284; 99285; A9270-GY; G0378; G8978-GP-CK; G8979-GP-CK; G8980-GP-CK; J0780; J1100; J1885; J2270; J2765; J3475

== ENCOUNTER 2017-12-05 10:57 | Emergency (ER) | payer MEDICARE, BC ==
[2017-12-05] MEDS ORDERED: NS 0.9% 1000 ML* 1,000 ML IV ONE (11:08)
[2017-12-05] MEDS ORDERED: Ketorolac INJ* 30 MG/ML 1 ML VIAL IV PUSH ONE (11:08)
[2017-12-05] MEDS ORDERED: diPHENhydraMINE IV* 50 MG/ML 1 ml VIAL (BENADRYL) IV ONE (11:08)
[2017-12-05] MEDS ORDERED: Metoclopramide IV* 5 MG/ML 2 ML VIAL IV ONE (11:08)
--- NOTE | 2017-12-05 11:44 | RAD ---
INDICATION: Headache, multiple falls. COMPARISON: Comparison is made with prior studies from July 16, 2017 and October 03, 2017. TECHNIQUE: Contiguous axial sections of the brain were obtained from the skull base to the vertex without contrast. FINDINGS: The ventricles, cisterns and sulci are enlarged consistent with age-related atrophy. There are multiple focal areas of decreased density in the subcortical and periventricular white matter suggestive of moderate chronic small vessel ischemic changes. There is a more focal area of decreased density in the cortex and subcortical white matter in the right frontal lobe which is unchanged consistent with a small old infarct. There is no evidence for hemorrhage. No significant focal osseous abnormality is seen. The visualized portion of the paranasal sinuses and mastoid air cells appear clear. IMPRESSION: 1. NO EVIDENCE FOR ACUTE INTRACRANIAL ABNORMALITY. 2. OLD RIGHT FRONTAL LOBE INFARCT. 3. FINDINGS SUGGESTIVE OF MODERATE CHRONIC SMALL VESSEL CHANGES.
[2017-12-05 12:29] VITALS: BP 108/68
--- NOTE | 2017-12-05 16:55 | ED ---
Jong Winkler Devyn, scribed for Lazarus Rangel MD on 12/05/17 at 1214 . Headache - HPI Summary HPI Summary: This patient is a 67 year old F BIBA with a chief complaint of headache since this morning at 5am. The patient rates the pain 10/10 in severity. Symptoms alleviated by ibuprofen and Tylenol, which brought the pain down to 8/10. Pt describes the NELSON as going from the top of her head down to her shoulders. Pt did not fall or hit her head recently. SHx of smoking, waiting to be brought to a detention. PMHx of COPD, CAD, Afib, Hypothyroid. Pt is frequently admitted to the ER and the last admission was [facility]. - History Of Current Complaint Chief Complaint: EDHeadache Stated Complaint: HEADACHE Time Seen by Provider: 12/05/17 10:59 Hx Obtained From: Patient Onset/Duration: Sudden Onset, Started hours ago - 05:00, Still Present Initially Headache Was: Initial Pain Scale(0-10)= - 10 Currently Pain Is: Current Pain Scale(0-10)= - 8 Timing: Constant Location of Headache: Diffuse Allevating Factors: Medication - little pain relief with ibuprofen and tylenol - Allergies/Home Medications Allergies/Adverse Reactions: Allergies Allergy/AdvReac Type Severity Reaction Status Date / Time aspirin Allergy Severe Anaphylatic Verified 12/05/17 11:05 Shock latex Allergy Mild Rash Verified 12/05/17 11:05 PMH/Surg Hx/FS Hx/Imm Hx Endocrine/Hematology History: Reports: Hx Thyroid Disease - hypothyroid, Other Endocrine/Hematological Disorders - Benign goiter Denies: Hx Bone Marrow Disease, Hx Diabetes, Hx Systemic Lupus Erythematosus Cardiovascular History: Reports: Hx Angina, Hx Atrial Fibrillation, Hx Hypercholesterolemia - was high before cancer,now off meds., Hx Hypertension, Hx Myocardial Infarction - NSTEMI, Other Cardiovascular Problems/Disorders - patent foramen ovale; Murmur, Denies: Hx Congestive Heart Failure, Hx Coronary Artery Disease, Hx Pacemaker /ICD, Hx Valvular Heart Disease Respiratory History: Reports: Hx Asthma, Hx Chronic Obstructive Pulmonary Disease (COPD), Hx Lung Cancer - Left upper lobectomy, Hx Pneumonia, Other Respiratory Problems/Disorders - lung cancer, LOBECTOMY 09/11/11, Emphysema GI History: Reports: Hx Gastroesophageal Reflux Disease, Hx Hiatal Hernia, Other GI Disorders - colitis. 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, Hx Osteoporosis, Hx Scoliosis, Other Musculoskeletal History - scoliosis Denies: Hx Rheumatoid Arthritis Sensory History: Reports: Hx Cataracts - PATIENT STATES BEGINING OF CATARACTS LEFT EYE, Hx Contacts or Glasses, Hx Hearing Problem - right Denies: Hx Hearing Aid Opthamlomology History: Reports: Hx Cataracts - PATIENT STATES BEGINING OF CATARACTS LEFT EYE, Hx Contacts or Glasses Neurological History: Reports: Hx CVA - in 05/16, Hx Headaches, Hx Migraine - Rare post menopause Psychiatric History: Reports: Hx Anxiety, Hx Depression, Hx Community Mental Health Tx, Hx Substance Abuse - opioids Denies: Hx Panic Disorder, Hx Inpatient Treatment - Cancer History Cancer Type, Location and Year: LUNG CA, DIAGNOSED July 2012 Hx Chemotherapy: Yes Hx Radiation Therapy: No Hx Palliative Cancer Treatment: No - Surgical History Surgery Procedure, Year, and Place: LEFT UPPER LUNG REMOVED 09/2012, HYSTERECTOMY , tonsillectomy Hx Anesthesia Reactions: No - Immunization History Date of Tetanus Vaccine: utd Date of Influenza Vaccine: utd Infectious Disease History: No Infectious Disease History: Denies: Hx of Known/Suspected MRSA, Traveled Outside the [place] in Last 30 Days - Family History Known Family History: Positive: Cardiac Disease - Sudden cardiac arrest (father) , Other - son -- glioblastoma. UC mother. Fhx of colitis. - Social History Alcohol Use: None Alcohol Amount: Unknown Hx Substance Use: No Substance Use Type: Reports: Prescribed Substance Use Comment - Amount & Last Used: percocet Hx Tobacco Use: Yes Smoking Status (MU): Heavy Every Day Tobacco Smoker Type: Cigarettes Amount Used/How Often: 1/2 pack a day Length of Time of Smoking/Using Tobacco: 47 years Have You Smoked in the Last Year: Yes Review of Systems Negative: Vomiting Positive: Headache All Other Systems Reviewed And Are Negative: Yes Physical Exam - Summary Physical Exam Summary: Appearance: Well appearing, no pain distress Skin: warm, dry, reflects adequate perfusion, superficial bruising on left forearm, no LE edema Head/face: normal Eyes: EOMI, ADORE ENT: normal Neck: supple, non-tender Respiratory: CTA, breath sounds present Cardiovascular: Blowing systolic murmur, irregularly irregular heartbeat, temporal arteries nontender Abdomen: non-tender, soft Bowel Sounds: present Musculoskeletal: normal, strength/ROM intact Neuro: normal, sensory motor intact, A&Ox3 Triage Information Reviewed: Yes Vital Signs On Initial Exam: Initial Vitals Temp Pulse Resp BP Pulse Ox 98.6 F 76 14 114/71 97 12/05/17 10:57 12/05/17 10:57 12/05/17 10:57 12/05/17 10:57 12/05/17 10:57 Vital Signs Reviewed: Yes Diagnostics - Vital Signs Vital Signs Temp Pulse Resp BP Pulse Ox 12/05/17 12:00 73 98 12/05/17 11:03 80 97 12/05/17 10:57 98.6 F 76 14 114/71 97 - Laboratory Lab Statement: Any lab studies that have been ordered have been reviewed, and results considered in the medical decision making process. - CT Brain CT Interpretation Completed By: Radiologist - IMPRESSION: 1. NO EVIDENCE FOR ACUTE INTRACRANIAL ABNORMALITY. 2. OLD RIGHT FRONTAL LOBE INFARCT. 3. FINDINGS SUGGESTIVE OF MODERATE CHRONIC SMALL VESSEL CHANGES. ER Physician reviewed this report. Re-Evaluation - Re-Evaluation First Eval Re-Evaluation Time: 11:52 - Headache resolved and she wanted food Change: Improved Headache Course/Dx - Course Course Of Treatment: Patient with acute onset headache without any definite known trauma. She states she has been having trouble with her oral Eliqius causing early bleeding. Given her headache was the worst she has ever experienced a CT was performed which was negative. Patient is a frequent utilizer of the ER. She was discharged after symptoms were resolved and feeling well. - Diagnoses Provider Diagnoses: Chronic mixed headache syndrome, Acute headache Discharge - Sign-Out/Discharge Documenting (check all that apply): Discharge/Admit/Transfer - Discharge Plan Condition: Good Disposition: HOME Prescriptions: Promethazine TAB* [Phenergan Tab*] 25 mg PO Q6H PRN #12 tab PRN Reason: headache/nausea Patient Education Materials: Acute Headache (ED) Referrals: Guerrero Gtz, [employer] SAL[employer] MANAGER [Primary Care Provider] - Additional Instructions: Call your doctor first thing in the morning to arrange follow-up. Return if worse, new symptoms or other concerns. - Billing Disposition and Condition Condition: GOOD Disposition: Home The documentation as recorded by the Jong crawford Devyn accurately reflects the service I personally performed and the decisions made by me, Lazarus Rangel MD.
== END 2017-12-05 12:28 | disposition home or self-care (01) ==
LOC: ED 10:57
DX: R51 Headache (principal); F17.210 Nicotine dependence, cigarettes, uncomplicated
CPT/HCPCS: 70450; 96374; 96375; 99283; J1200; J1885; J2765

== ENCOUNTER 2017-12-09 09:18 | Emergency (ER) | payer MEDICARE, BC ==
[2017-12-09] MEDS ORDERED: diPHENhydraMINE IV* 50 MG/ML 1 ml VIAL (BENADRYL) IV ONE (09:56)
[2017-12-09] MEDS ORDERED: Metoclopramide IV* 5 MG/ML 2 ML VIAL IV ONE (09:56)
[2017-12-09] MEDS ORDERED: NS 0.9% 1000 ML* 1,000 ML IV ONE (09:56)
[2017-12-09] MEDS ORDERED: Ketorolac INJ* 30 MG/ML 1 ML VIAL IV PUSH ONE (09:56)
--- NOTE | 2017-12-09 10:02 | ED ---
Headache - HPI Summary HPI Summary: This patient is a 67 year old F presenting to [facility] with a chief complaint of NELSON since 12/04/17. Endorses N/V. PMHx migraines, NELSON. Diffuse pain from front of head to shoulders. She endorses minor photophobia, and had an emetic episode at 0400 today. She notes poor oral intake, as all food is vomited after eating. PMHx CVA 05/16. PMHx murmur. - History Of Current Complaint Chief Complaint: EDNauseaVomitDiarrh Stated Complaint: VOMITING Time Seen by Provider: 12/09/17 09:24 Hx Obtained From: Patient Onset/Duration: Gradual Onset, Started days ago, Still Present Initially Headache Was: Moderate Currently Pain Is: Moderate Timing: Constant, Days Character: Typical Headache Location of Headache: Diffuse - frontal to shoulders, no parietal or temportal Aggravating Factor: Bright Lights Allevating Factors: Medication Associated Signs And Symptoms: Nausea, Vomiting, Neck Pain Related History: Similar Episode/DX As: - 12/04/17 ED - Allergies/Home Medications Allergies/Adverse Reactions: Allergies Allergy/AdvReac Type Severity Reaction Status Date / Time aspirin Allergy Severe Anaphylatic Verified 12/09/17 10:59 Shock latex Allergy Mild Rash Verified 12/09/17 10:59 PMH/Surg Hx/FS Hx/Imm Hx Endocrine/Hematology History: Reports: Hx Thyroid Disease - hypothyroid, Other Endocrine/Hematological Disorders - Benign goiter Denies: Hx Bone Marrow Disease, Hx Diabetes, Hx Systemic Lupus Erythematosus Cardiovascular History: Reports: Hx Angina, Hx Atrial Fibrillation, Hx Hypercholesterolemia - was high before cancer,now off meds., Hx Hypertension, Hx Myocardial Infarction - NSTEMI, Other Cardiovascular Problems/Disorders - patent foramen ovale; Murmur, Denies: Hx Congestive Heart Failure, Hx Coronary Artery Disease, Hx Pacemaker /ICD, Hx Valvular Heart Disease Respiratory History: Reports: Hx Asthma, Hx Chronic Obstructive Pulmonary Disease (COPD), Hx Lung Cancer - Left upper lobectomy, Hx Pneumonia, Other Respiratory Problems/Disorders - lung cancer, LOBECTOMY 09/11/11, Emphysema GI History: Reports: Hx Gastroesophageal Reflux Disease, Hx Hiatal Hernia, Other GI Disorders - colitis. 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, Hx Osteoporosis, Hx Scoliosis, Other Musculoskeletal History - scoliosis Denies: Hx Rheumatoid Arthritis Sensory History: Reports: Hx Cataracts - PATIENT STATES BEGINING OF CATARACTS LEFT EYE, Hx Contacts or Glasses, Hx Hearing Problem - right Denies: Hx Hearing Aid Opthamlomology History: Reports: Hx Cataracts - PATIENT STATES BEGINING OF CATARACTS LEFT EYE, Hx Contacts or Glasses Neurological History: Reports: Hx CVA - in 05/16, Hx Headaches, Hx Migraine - Rare post menopause Psychiatric History: Reports: Hx Anxiety, Hx Depression, Hx Community Mental Health Tx, Hx Substance Abuse - opioids Denies: Hx Panic Disorder, Hx Inpatient Treatment - Cancer History Cancer Type, Location and Year: LUNG CA, DIAGNOSED July 2012 Hx Chemotherapy: Yes Hx Radiation Therapy: No Hx Palliative Cancer Treatment: No - Surgical History Surgery Procedure, Year, and Place: LEFT UPPER LUNG REMOVED 09/2012, HYSTERECTOMY , tonsillectomy Hx Anesthesia Reactions: No - Immunization History Date of Tetanus Vaccine: utd Date of Influenza Vaccine: utd Infectious Disease History: No Infectious Disease History: Denies: Hx of Known/Suspected MRSA, Traveled Outside the [place] in Last 30 Days - Family History Known Family History: Positive: Cardiac Disease - Sudden cardiac arrest (father) , Other - son -- glioblastoma. UC mother. Fhx of colitis. - Social History Alcohol Use: None Alcohol Amount: Unknown Hx Substance Use: No Substance Use Type: Reports: Prescribed Substance Use Comment - Amount & Last Used: percocet Hx Tobacco Use: Yes Smoking Status (MU): Heavy Every Day Tobacco Smoker Type: Cigarettes Amount Used/How Often: 1/2 pack a day Length of Time of Smoking/Using Tobacco: 47 years Have You Smoked in the Last Year: Yes Review of Systems Negative: Fever Positive: Photophobia Positive: Vomiting, Nausea Positive: Myalgia - neck Positive: Headache All Other Systems Reviewed And Are Negative: Yes Physical Exam - Summary Physical Exam Summary: Appearance: The patient is well-nourished in no acute distress and in no acute pain. Skin: The skin is warm and dry and skin color reflects adequate perfusion. HEENT: The head is normocephalic and atraumatic. The pupils are equal and reactive. The conjunctivae are clear and without drainage. Nares are patent and without drainage. Mouth reveals moist mucous membranes and the throat is without erythema and exudate. The external ears are intact. The ear canals are patent and without drainage. The tympanic membranes are intact. Neck: The neck is supple with full range of motion and non-tender. There are no carotid bruits. There is no neck vein distension. Tender paracervically, no meningeal signs. Respiratory: Chest is non-tender. Lungs are clear to auscultation and breath sounds are symmetrical and equal. Cardiovascular: There is no rub auscultated. Systolic ejection murmur noted. There is no peripheral edema and pulses are symmetrical and equal. Abdomen: The abdomen is soft and non-tender. There are normal bowel sounds heard in all four quadrants and there is no organomegaly palpated. Musculoskeletal: Tender paracervically, no meningeal signs. Extremities are non- tender with full range of motion. There is good capillary refill. There is no peripheral edema or calf tenderness elicited. Neurological: Patient is alert and oriented to person, place and time. The patient has symmetrical motor strength in all four extremities. Cranial nerves are grossly intact. Deep tendon reflexes are symmetrical and equal in all four extremities. Psychiatric: The patient has an appropriate affect and does not exhibit any anxiety or depression. Triage Information Reviewed: Yes Vital Signs On Initial Exam: Initial Vitals Temp Pulse Resp BP Pulse Ox 99.0 F 93 16 151/97 98 12/09/17 09:20 12/09/17 09:20 12/09/17 09:20 12/09/17 09:20 12/09/17 09:20 Vital Signs Reviewed: Yes Diagnostics - Vital Signs Vital Signs Temp Pulse Resp BP Pulse Ox 12/09/17 09:22 89 33 151/97 92 12/09/17 09:20 99.0 F 93 16 151/97 98 - Laboratory Result Diagrams: 12/09/17 10:22 12/09/17 10:22 Lab Statement: Any lab studies that have been ordered have been reviewed, and results considered in the medical decision making process. - EKG 0932 Cardiac Rate: NL - 94 EKG Rhythm: Sinus Rhythm ST Segment: Normal EKG Interpretation: no LVH, no RAD EKG Comparison: No Significant Change - from 11/23/17 Re-Evaluation - Re-Evaluation First Eval Re-Evaluation Time: 13:06 Change: Improved Comment: check up on sx. pt improved, discussed discharge. Headache Course/Dx - Course Course Of Treatment: Ms. Glover presents complaining of her typical headache that has been going on for many days. She received a migraine cocktail here in the emergency department on Wednesday which helped some but did not completely relieve it. Today she vomited and decided to re-present. She was treated with IV fluids and a migraine cocktail consisting of ketorolac, Reglan and Benadryl. She slept for a while and woke up with her headache gone. - Diagnoses Provider Diagnoses: Headache Discharge - Sign-Out/Discharge Documenting (check all that apply): Patient Departure - discharge - Discharge Plan Condition: Stable Disposition: HOME Patient Education Materials: General Headache (ED) Referrals: Guerrero Gtz NP [Primary Care Provider] - 3 Days Additional Instructions: RETURN TO EMERGENCY DEPARTMENT FOR NEW OR WORSENING SYMPTOMS. - Billing Disposition and Condition Condition: STABLE Disposition: Home
[2017-12-09 10:43] LABS: Hematocrit 26 % (35-47); Hemoglobin 8.4 g/dl (12.0-16.0); Mean Corpuscular HGB Conc 33 g/dl (31-36); Mean Corpuscular Hemoglobin 26 pg (27-31); Mean Corpuscular Volume 78 fL (80-97); Mean Platelet Volume 7.2 um3 (7.4-10.4); Platelet Count 530 10^3/ul (150-450); Red Blood Count 3.26 10^6/ul (4.00-5.40); Red Cell Distribution Width 19 % (10.5-15); White Blood Count 6.4 10^3/ul (3.5-10.8)
[2017-12-09 10:56] LABS: EGFR Non-African American 72.8 (>60)
[2017-12-09 11:08] LABS: ABS Basophils 0.1 10^3/ul (0-0.2); ABS Neutrophils 3.1 10^3/ul (1.5-7.7); Monocytes % 4 % (0-7)
[2017-12-09 13:30] VITALS: BP 112/67
== END 2017-12-09 13:29 | disposition home or self-care (01) ==
LOC: ED 09:18
DX: R51 Headache (principal); F17.210 Nicotine dependence, cigarettes, uncomplicated; Z86.73 Personal history of transient ischemic attack (TIA), and cerebral infarction without residual deficits; Z85.118 Personal history of other malignant neoplasm of bronchus and lung; Z88.6 Allergy status to analgesic agent
CPT/HCPCS: 36415; 80053; 85025; 86140; 93005; 96374; 96375; 99283; J1200; J1885; J2765

== ENCOUNTER 2017-12-31 15:41 | Emergency (ER) | payer MEDICARE, BC ==
[2017-12-31] MEDS ORDERED: Metoclopramide TAB* 10 MG PO ONE (18:22)
[2017-12-31] MEDS ORDERED: diPHENhydraMINE PO* 25 MG PO ONE (18:25)
[2017-12-31] MEDS ORDERED: Ketorolac TAB * 10 MG TAB PO PRN (18:25)
[2017-12-31] MEDS ORDERED: NS 0.9% 1000 ML* 1,000 ML IV ONE (18:26)
[2017-12-31 18:27] LABS: INR 1.05 (0.77-1.02)
[2017-12-31 18:40] LABS: ABS Basophils 0.1 10^3/ul (0-0.2); ABS Eosinophils 0.2 10^3/ul (0-0.6); ABS Lymphocytes 1.5 10^3/ul (1.0-4.8); ABS Neutrophils 6.5 10^3/ul (1.5-7.7); ABS Nucleated RBC 0 10^3/ul; Eosinophil % 1.7 % (0-6); Hematocrit 25 % (35-47); Lymphocyte % 15.9 % (25-47); Mean Corpuscular HGB Conc 32 g/dl (31-36); Mean Corpuscular Hemoglobin 25 pg (27-31); Mean Corpuscular Volume 80 fL (80-97); Mean Platelet Volume 7.6 um3 (7.4-10.4); Nucleated Red Blood Cells % 0; Platelet Count 386 10^3/ul (150-450); Red Blood Count 3.14 10^6/ul (4.00-5.40); Red Cell Distribution Width 18 % (10.5-15); White Blood Count 9.2 10^3/ul (3.5-10.8)
[2017-12-31 18:46] LABS: EGFR Non-African American 46.7 (>60)
--- NOTE | 2017-12-31 18:48 | RAD ---
INDICATION: Cough and lightheadedness COMPARISON: None TECHNIQUE: PA and lateral views of the chest were obtained. FINDINGS: Stable surgical clips noted along the upper left mediastinum. The heart and mediastinum are normal in size and contour. The lungs are grossly clear. There is no evidence of large pleural effusion. Visualized bones are normal for the patient's age. There is no radiographic evidence of free air beneath the diaphragm IMPRESSION: No radiographic evidence of acute cardiopulmonary disease.
--- NOTE | 2017-12-31 19:18 | ED ---
Headache - HPI Summary HPI Summary: Complains of severe headache, lightheadedness starting today. History of migraines, states this is usual headache, associated with nausea. Also complains of possible sores on buttocks as patient is either lying down or sitting in the recliner most of the day. Denies fever, vision change, focal deficits, increasing chronic cough, sore throat, increase in chronic shortness of breath, CP, abdominal pain, V/D, change in urine or BM. Medical history is HTN, lung cancer with last chemotherapy treatment 5 years ago, COPD, NELSON, CAD, HDL, CVA, PE, pneumonia, hypothyroid, PFO, alopecia. Patient on Plavix. Patient took Tylenol at 9:30 AM. - History Of Current Complaint Chief Complaint: EDDizziness Stated Complaint: DIZZY/SOB/HEADACHE Time Seen by Provider: 12/31/17 17:46 Hx Obtained From: Patient Onset/Duration: Started hours ago Initially Headache Was: Severe Currently Pain Is: Severe Timing: Constant Location of Headache: Diffuse Aggravating Factor: Bright Lights Allevating Factors: Nothing Associated Signs And Symptoms: Nausea - Allergies/Home Medications Allergies/Adverse Reactions: Allergies Allergy/AdvReac Type Severity Reaction Status Date / Time aspirin Allergy Severe Anaphylatic Verified 12/09/17 10:59 Shock latex Allergy Mild Rash Verified 12/09/17 10:59 PMH/Surg Hx/FS Hx/Imm Hx Endocrine/Hematology History: Reports: Hx Anticoagulant Therapy, Hx Thyroid Disease - hypothyroid, Other Endocrine/Hematological Disorders - Benign goiter Denies: Hx Bone Marrow Disease, Hx Diabetes, Hx Systemic Lupus Erythematosus Cardiovascular History: Reports: Hx Angina, Hx Atrial Fibrillation, Hx Hypercholesterolemia - was high before cancer,now off meds., Hx Hypertension, Hx Myocardial Infarction - NSTEMI, Other Cardiovascular Problems/Disorders - patent foramen ovale; Murmur, Denies: Hx Congestive Heart Failure, Hx Coronary Artery Disease, Hx Pacemaker /ICD, Hx Valvular Heart Disease Respiratory History: Reports: Hx Asthma, Hx Chronic Obstructive Pulmonary Disease (COPD), Hx Lung Cancer - Left upper lobectomy, Hx Pneumonia, Other Respiratory Problems/Disorders - lung cancer, LOBECTOMY 09/11/11, Emphysema GI History: Reports: Hx Gastroesophageal Reflux Disease, Hx Hiatal Hernia, Other GI Disorders - colitis. 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, Hx Osteoporosis, Hx Scoliosis, Other Musculoskeletal History - scoliosis Denies: Hx Rheumatoid Arthritis Sensory History: Reports: Hx Cataracts - PATIENT STATES BEGINING OF CATARACTS LEFT EYE, Hx Contacts or Glasses, Hx Hearing Problem - right Denies: Hx Hearing Aid Opthamlomology History: Reports: Hx Cataracts - PATIENT STATES BEGINING OF CATARACTS LEFT EYE, Hx Contacts or Glasses Neurological History: Reports: Hx CVA - in 05/16, Hx Headaches, Hx Migraine - Rare post menopause Psychiatric History: Reports: Hx Anxiety, Hx Depression, Hx Community Mental Health Tx, Hx Substance Abuse - opioids Denies: Hx Panic Disorder, Hx Inpatient Treatment - Cancer History Cancer Type, Location and Year: LUNG CA, DIAGNOSED July 2012 Hx Chemotherapy: Yes Hx Radiation Therapy: No Hx Palliative Cancer Treatment: No - Surgical History Surgery Procedure, Year, and Place: LEFT UPPER LUNG REMOVED 09/2012, HYSTERECTOMY , tonsillectomy Hx Anesthesia Reactions: No - Immunization History Date of Tetanus Vaccine: utd Date of Influenza Vaccine: utd Infectious Disease History: No Infectious Disease History: Denies: Hx of Known/Suspected MRSA, Traveled Outside the [place] in Last 30 Days - Family History Known Family History: Positive: Cardiac Disease - Sudden cardiac arrest (father) , Other - son -- glioblastoma. UC mother. Fhx of colitis. - Social History Alcohol Use: None Alcohol Amount: Unknown Hx Substance Use: No Substance Use Type: Reports: Prescribed Substance Use Comment - Amount & Last Used: percocet Hx Tobacco Use: Yes Smoking Status (MU): Heavy Every Day Tobacco Smoker Type: Cigarettes Amount Used/How Often: 1/2 pack a day Length of Time of Smoking/Using Tobacco: 47 years Have You Smoked in the Last Year: Yes Review of Systems Constitutional: Negative Positive: Photophobia ENT: Negative Cardiovascular: Negative Respiratory: Negative Positive: Nausea Genitourinary: Negative Musculoskeletal: Negative Positive: Bruising Positive: Headache Psychological: Normal All Other Systems Reviewed And Are Negative: Yes Physical Exam - Summary Physical Exam Summary: 2 areas of redness on bilateral top of gluteal cleft with peeling skin. Tissue otherwise normal. Triage Information Reviewed: Yes Vital Signs On Initial Exam: Initial Vitals Temp Pulse Resp BP Pulse Ox 98.7 F 99 20 126/81 99 12/31/17 16:12 12/31/17 16:12 12/31/17 16:12 12/31/17 16:12 12/31/17 16:12 Vital Signs Reviewed: Yes Appearance: Positive: Well-Appearing Skin: Positive: Warm Head/Face: Positive: Normal Head/Face Inspection Eyes: Positive: Normal Neck: Positive: Supple Respiratory/Lung Sounds: Positive: Clear to Auscultation Cardiovascular: Positive: Normal Abdomen Description: Positive: Nontender Musculoskeletal: Positive: Normal Neurological: Positive: Normal Psychiatric: Positive: Normal AVPU Assessment: Alert - [place] Coma Scale Best Eye Response: 4 - Spontaneous Best Motor Response: 6 - Obeys Commands Best Verbal Response: 5 - Oriented Coma Scale Total: 15 Diagnostics - Vital Signs Vital Signs Temp Pulse Resp BP Pulse Ox 12/31/17 17:24 99.2 F 94 18 122/78 100 12/31/17 16:12 98.7 F 99 20 126/81 99 - Laboratory Lab Results: Lab Results 12/31/17 12/31/17 12/31/17 Range/Units 18:12 18:12 18:12 WBC 9.2 (3.5-10.8) 10^3/ul RBC 3.14 L (4.00-5.40) 10^6/ul Hgb 8.0 L (12.0-16.0) g/dl Hct 25 L (35-47) % MCV 80 (80-97) fL MCH 25 L (27-31) pg MCHC 32 (31-36) g/dl RDW 18 H (10.5-15) % Plt Count 386 (150-450) 10^3/ul MPV 7.6 (7.4-10.4) um3 Neut % (Auto) 71.0 (38-83) % Lymph % (Auto) 15.9 L (25-47) % [place] % (Auto) 10.5 H (0-7) % Eos % (Auto) 1.7 (0-6) % Baso % (Auto) 0.9 (0-2) % Absolute Neuts (auto) 6.5 (1.5-7.7) 10^3/ul Absolute Lymphs (auto) 1.5 (1.0-4.8) 10^3/ul Absolute Monos (auto) 1.0 H (0-0.8) 10^3/ul Absolute Eos (auto) 0.2 (0-0.6) 10^3/ul Absolute Basos (auto) 0.1 (0-0.2) 10^3/ul Absolute Nucleated RBC 0 10^3/ul Nucleated RBC % 0 INR (Anticoag Therapy) 1.05 H (0.77-1.02) Sodium 134 L (135-145) mmol/L Potassium 4.7 (3.5-5.0) mmol/L Chloride 105 (101-111) mmol/L Carbon Dioxide 22 (22-32) mmol/L Anion Gap 7 (2-11) mmol/L BUN 20 (6-24) mg/dL Creatinine 1.16 H (0.51-0.95) mg/dL Est GFR ( Amer) 56.6 (>60) Est GFR (Non-Af Amer) 46.7 (>60) BUN/Creatinine Ratio 17.2 (8-20) Glucose 88 (70-100) mg/dL Lactic Acid (0.5-2.0) mmol/L Calcium 8.8 (8.6-10.3) mg/dL Total Bilirubin 0.20 (0.2-1.0) mg/dL AST 15 (13-39) U/L ALT 10 (7-52) U/L Alkaline Phosphatase 90 (34-104) U/L Troponin I 0.01 (<0.04) ng/mL C-Reactive Protein 1.26 (<8.01) mg/L Total Protein 6.5 (6.4-8.9) g/dL Albumin 3.8 (3.2-5.2) g/dL Globulin 2.7 (2-4) g/dL Albumin/Globulin Ratio 1.4 (1-3) TSH 26.79 H (0.34-5.60) mcIU/mL 12/31/17 Range/Units 18:12 WBC (3.5-10.8) 10^3/ul RBC (4.00-5.40) 10^6/ul Hgb (12.0-16.0) g/dl Hct (35-47) % MCV (80-97) fL MCH (27-31) pg MCHC (31-36) g/dl RDW (10.5-15) % Plt Count (150-450) 10^3/ul MPV (7.4-10.4) um3 Neut % (Auto) (38-83) % Lymph % (Auto) (25-47) % [place] % (Auto) (0-7) % Eos % (Auto) (0-6) % Baso % (Auto) (0-2) % Absolute Neuts (auto) (1.5-7.7) 10^3/ul Absolute Lymphs (auto) (1.0-4.8) 10^3/ul Absolute Monos (auto) (0-0.8) 10^3/ul Absolute Eos (auto) (0-0.6) 10^3/ul Absolute Basos (auto) (0-0.2) 10^3/ul Absolute Nucleated RBC 10^3/ul Nucleated RBC % INR (Anticoag Therapy) (0.77-1.02) Sodium (135-145) mmol/L Potassium (3.5-5.0) mmol/L Chloride (101-111) mmol/L Carbon Dioxide (22-32) mmol/L Anion Gap (2-11) mmol/L BUN (6-24) mg/dL Creatinine (0.51-0.95) mg/dL Est GFR ( Amer) (>60) Est GFR (Non-Af Amer) (>60) BUN/Creatinine Ratio (8-20) Glucose (70-100) mg/dL Lactic Acid 1.3 (0.5-2.0) mmol/L Calcium (8.6-10.3) mg/dL Total Bilirubin (0.2-1.0) mg/dL AST (13-39) U/L ALT (7-52) U/L Alkaline Phosphatase (34-104) U/L Troponin I (<0.04) ng/mL C-Reactive Protein (<8.01) mg/L Total Protein (6.4-8.9) g/dL Albumin (3.2-5.2) g/dL Globulin (2-4) g/dL Albumin/Globulin Ratio (1-3) TSH (0.34-5.60) mcIU/mL Result Diagrams: 12/31/17 18:12 12/31/17 18:12 Lab Statement: Any lab studies that have been ordered have been reviewed, and results considered in the medical decision making process. - Radiology cxr Xray Interpretation: No Acute Changes Radiology Interpretation Completed By: Radiologist - EKG 1 Cardiac Rate: NL EKG Rhythm: Sinus Rhythm ST Segment: Non-Specific Ectopy: None EKG Interpretation: not stemi Headache Course/Dx - Course Course Of Treatment: Complains of severe headache, lightheadedness starting today. History of migraines, states this is usual headache, associated with nausea. Also complains of possible sores on buttocks as patient is either lying down or sitting in the recliner most of the day. Denies fever, vision change, focal deficits, increasing chronic cough, sore throat, increase in chronic shortness of breath, CP, abdominal pain, V/D, change in urine or BM. Medical history is HTN, lung cancer with last chemotherapy treatment 5 years ago , COPD, NELSON, CAD, HDL, CVA, PE, pneumonia, hypothyroid, PFO, alopecia. Patient on Plavix. Patient took Tylenol at 9:30 AM. 2 areas of redness on bilateral top of gluteal cleft with peeling skin. Tissue otherwise normal. Creatinine 1.16. Hemoglobin 8.0. TSH 26.79. BNP 103, baseline for patient. Chest x-ray and EKG unremarkable. Hemoccult NEG. vital signs within normal limits and stable. Discussed patient with Dr. Cardoza who recommended increasing her Synthroid from 200 to 250 mcg daily and follow-up TSH levels in one week. Follow-up with primary care for anemia. - Diagnoses Provider Diagnoses: Hypothyroid, Migraine, Anemia Discharge - Sign-Out/Discharge Documenting (check all that apply): Patient Departure - Discharge Plan Condition: Stable Disposition: HOME Patient Education Materials: Migraine Headache (ED), Hypothyroidism (ED), Anemia (ED) Referrals: Guerrero Gtz NP [Primary Care Provider] - Additional Instructions: Increase Synthroid from 200mcg daily to 250mcg daily. Get repeat TSH levels in one week. Follow-up with primary care. Return to the ED for any new or worsening symptoms - Billing Disposition and Condition Condition: STABLE Disposition: Home
[2017-12-31 21:45] VITALS: BP 129/102
== END 2017-12-31 21:43 | disposition home or self-care (01) ==
LOC: ED 15:41
DX: E03.9 Hypothyroidism, unspecified (principal); G43.909 Migraine, unspecified, not intractable, without status migrainosus; D64.9 Anemia, unspecified; R23.8 Other skin changes; Q21.1 Atrial septal defect; I25.10 Atherosclerotic heart disease of native coronary artery without angina pectoris; I25.2 Old myocardial infarction; I10 Essential (primary) hypertension; J44.9 Chronic obstructive pulmonary disease, unspecified; L65.9 Nonscarring hair loss, unspecified; F17.210 Nicotine dependence, cigarettes, uncomplicated; Z79.02 Long term (current) use of antithrombotics/antiplatelets; Z85.118 Personal history of other malignant neoplasm of bronchus and lung; Z92.21 Personal history of antineoplastic chemotherapy; Z86.711 Personal history of pulmonary embolism; Z87.01 Personal history of pneumonia (recurrent); Z88.6 Allergy status to analgesic agent
CPT/HCPCS: 36415; 71046; 80053; 82270; 83605; 83880; 84443; 84484; 85025; 85610; 86140; 93005; 99283; A9270-GY

== ENCOUNTER 2018-01-01 05:51 | Emergency (ER) | payer MEDICARE, BC ==
[2018-01-01] MEDS ORDERED: PROCHLORPERAZINE INJ 5 MG/ML 2 ML VIAL IV ONE (06:25)
[2018-01-01] MEDS ORDERED: Ketorolac INJ* 30 MG/ML 1 ML VIAL IV PUSH ONE (06:25)
[2018-01-01] MEDS ORDERED: diPHENhydraMINE IV* 50 MG/ML 1 ml VIAL (BENADRYL) IV ONE (06:25)
[2018-01-01] MEDS ORDERED: NS 0.9% 1000 ML* 1,000 ML IV ONE (06:25)
[2018-01-01] MEDS ORDERED: diPHENhydraMINE IV* 25 MG in NS 0.9% 50 ML* 50 ML IVPB ONE (06:25)
--- NOTE | 2018-01-01 06:34 | ED ---
Headache - HPI Summary HPI Summary: Patient is a 67-year-old female who is a frequent visitor to the ED with multiple complaints. She was seen here last evening for headache and was given the "migraine cocktail" which improved her headache symptoms from a 10 to an 8. Continues to endorse a headache, photophobia, mild nausea. She is also endorsing some mid abdominal pain over the past week associated with her migraine. She states she has taken Tylenol at home without relief. - History Of Current Complaint Chief Complaint: EDAbdPain Stated Complaint: GENERAL ILLNESS Time Seen by Provider: 01/01/18 05:57 Hx Obtained From: Patient Onset/Duration: Gradual Onset, Started days ago Initially Headache Was: Initial Pain Scale(0-10)= - 9 Currently Pain Is: Current Pain Scale(0-10)= - 9 Timing: Constant Character: Throbbing Aggravating Factor: Nothing Allevating Factors: Nothing - Risk Factors SAH Risk Factors: Negative Meningitis Risk Factors: Negative Temporal Arteritis Risk Factors: Female, , Greater Than 60 Years Old - Allergies/Home Medications Allergies/Adverse Reactions: Allergies Allergy/AdvReac Type Severity Reaction Status Date / Time aspirin Allergy Severe Anaphylatic Verified 01/01/18 05:56 Shock latex Allergy Mild Rash Verified 01/01/18 05:56 PMH/Surg Hx/FS Hx/Imm Hx Previously Healthy: No Endocrine/Hematology History: Reports: Hx Anticoagulant Therapy, Hx Thyroid Disease - hypothyroid, Other Endocrine/Hematological Disorders - Benign goiter Denies: Hx Bone Marrow Disease, Hx Diabetes, Hx Systemic Lupus Erythematosus Cardiovascular History: Reports: Hx Angina, Hx Atrial Fibrillation, Hx Hypercholesterolemia - was high before cancer,now off meds., Hx Hypertension, Hx Myocardial Infarction - NSTEMI, Other Cardiovascular Problems/Disorders - patent foramen ovale; Murmur, Denies: Hx Congestive Heart Failure, Hx Coronary Artery Disease, Hx Pacemaker /ICD, Hx Valvular Heart Disease Respiratory History: Reports: Hx Asthma, Hx Chronic Obstructive Pulmonary Disease (COPD), Hx Lung Cancer - Left upper lobectomy, Hx Pneumonia, Other Respiratory Problems/Disorders - lung cancer, LOBECTOMY 09/11/11, Emphysema GI History: Reports: Hx Gastroesophageal Reflux Disease, Hx Hiatal Hernia, Other GI Disorders - colitis. 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, Hx Osteoporosis, Hx Scoliosis, Other Musculoskeletal History - scoliosis Denies: Hx Rheumatoid Arthritis Sensory History: Reports: Hx Cataracts - PATIENT STATES BEGINING OF CATARACTS LEFT EYE, Hx Contacts or Glasses, Hx Hearing Problem - right Denies: Hx Hearing Aid Opthamlomology History: Reports: Hx Cataracts - PATIENT STATES BEGINING OF CATARACTS LEFT EYE, Hx Contacts or Glasses Neurological History: Reports: Hx CVA - in 05/16, Hx Headaches, Hx Migraine - Rare post menopause Psychiatric History: Reports: Hx Anxiety, Hx Depression, Hx Community Mental Health Tx, Hx Substance Abuse - opioids Denies: Hx Panic Disorder, Hx Inpatient Treatment - Cancer History Cancer Type, Location and Year: LUNG CA, DIAGNOSED July 2012 Hx Chemotherapy: Yes Hx Radiation Therapy: No Hx Palliative Cancer Treatment: No - Surgical History Surgery Procedure, Year, and Place: LEFT UPPER LUNG REMOVED 09/2012, HYSTERECTOMY , tonsillectomy Hx Anesthesia Reactions: No - Immunization History Date of Tetanus Vaccine: utd Date of Influenza Vaccine: utd Hx Pertussis Vaccination: No Immunizations Up to Date: Unable to Obtain/Confirm Infectious Disease History: No Infectious Disease History: Denies: Hx of Known/Suspected MRSA, Traveled Outside the [place] in Last 30 Days - Family History Known Family History: Positive: Cardiac Disease - Sudden cardiac arrest (father) , Other - son -- glioblastoma. UC mother. Fhx of colitis. - Social History Occupation: Unemployed Lives: Alone Alcohol Use: None Alcohol Amount: Unknown Hx Substance Use: No Substance Use Type: Reports: Prescribed Substance Use Comment - Amount & Last Used: percocet Hx Tobacco Use: Yes Smoking Status (MU): Heavy Every Day Tobacco Smoker Type: Cigarettes Amount Used/How Often: 1/2 pack a day Length of Time of Smoking/Using Tobacco: 47 years Have You Smoked in the Last Year: Yes Review of Systems Constitutional: Negative Negative: Fever, Chills, Fatigue Negative: Palpitations, Chest Pain Negative: Shortness Of Breath, Cough Positive: Abdominal Pain, Nausea. Negative: Vomiting, Diarrhea Genitourinary: Negative Positive: no symptoms reported, see HPI Skin: Negative Positive: Headache Psychological: Normal All Other Systems Reviewed And Are Negative: Yes Physical Exam Triage Information Reviewed: Yes Vital Signs On Initial Exam: Initial Vitals Temp Pulse Resp BP Pulse Ox 99 F 99 19 136/96 100 08/04/18 05:56 01/01/18 05:56 01/01/18 05:56 01/01/18 05:56 01/01/18 05:56 Vital Signs Reviewed: Yes Appearance: Positive: Well-Nourished, Ill-Appearing Skin: Positive: Warm Head/Face: Positive: Normal Head/Face Inspection Eyes: Positive: EOMI, ADORE, Conjunctiva Clear Respiratory/Lung Sounds: Positive: Clear to Auscultation, Breath Sounds Present Cardiovascular: Positive: RRR Musculoskeletal: Positive: Normal Neurological: Positive: Alert, Oriented to Person Place, Time, Speech Normal Psychiatric: Positive: Normal, Affect/Mood Appropriate AVPU Assessment: Alert Diagnostics - Vital Signs Vital Signs Temp Pulse Resp BP Pulse Ox 01/01/18 05:56 99 F 99 19 136/96 100 - Laboratory Lab Statement: Any lab studies that have been ordered have been reviewed, and results considered in the medical decision making process. Headache Course/Dx - Course Course Of Treatment: During the course of treatment, the patient is given 1 L and S, 25 mg IV Benadryl, 10 mg Compazine IV, 30 mg Toradol IV. Labs were not drawn as she had lab work last evening and was all WNL. Denies this headache is worst of life. No acute onset and has been present over 3 days. History of frequent visits to the ER with admissions, some of them retirement due to requests for continuing pain medications. After medications are given, she is requesting to leave. She states she is feeling better. She is discharged to home. - Diagnoses Differential Diagnosis/HQI/PQRI: Migraine, Sinus Headache, Temporal Arteritis, Tension Headache Provider Diagnoses: Headache Discharge - Sign-Out/Discharge Documenting (check all that apply): Patient Departure - Discharge Plan Condition: Stable Disposition: HOME Referrals: Guerrero Gtz NP [Primary Care Provider] - - Billing Disposition and Condition Condition: STABLE Disposition: Home
[2018-01-01 07:28] VITALS: BP 00/00
== END 2018-01-01 07:27 | disposition home or self-care (01) ==
LOC: ED 05:51
DX: R51 Headache (principal); F17.210 Nicotine dependence, cigarettes, uncomplicated; R11.0 Nausea; Z79.01 Long term (current) use of anticoagulants; I48.91 Unspecified atrial fibrillation; D64.9 Anemia, unspecified; Z88.6 Allergy status to analgesic agent; Z91.040 Latex allergy status; Z85.118 Personal history of other malignant neoplasm of bronchus and lung; Z82.41 Family history of sudden cardiac death; Z83.79 Family history of other diseases of the digestive system
CPT/HCPCS: 99283; J0780; J1200; J1885

== ENCOUNTER 2018-01-01 14:07 | Emergency (ER) | payer MEDICARE, BC ==
[2018-01-01] MEDS ORDERED: Promethazine TAB* 25 MG PO ONE (15:26)
[2018-01-01] MEDS ORDERED: oxyCODONE/Acetamin 5/325 MG* TAB PO ONE (15:26)
--- NOTE | 2018-01-01 15:29 | ED ---
Headache - HPI Summary HPI Summary: This is ty Fisher documenting for attending Lazarus Rangel MD. This patient is well known to the [facility]. She is a 67 year old F BIBA to [facility] with a chief complaint of a headache along the midline of her head since 24 hours ago. The patient rates the pain 9/10 in severity currently. Patient denies dark stool and hematemesis. She has tried to self-medicate with Tylenol but it has not alleviated the symptoms. She has a PMHx of lung cancer and no longer smokes. - History Of Current Complaint Chief Complaint: EDHeadache Stated Complaint: headache Time Seen by Provider: 01/01/18 15:13 Hx Obtained From: Patient Onset/Duration: Sudden Onset, Started hours ago - 24 hours ago Timing: Constant Aggravating Factor: Nothing Allevating Factors: Nothing Associated Signs And Symptoms: Other (Noted In Comments) - denies dark stool and hematemesis - Allergies/Home Medications Allergies/Adverse Reactions: Allergies Allergy/AdvReac Type Severity Reaction Status Date / Time aspirin Allergy Severe Anaphylatic Verified 01/01/18 05:56 Shock latex Allergy Mild Rash Verified 01/01/18 05:56 PMH/Surg Hx/FS Hx/Imm Hx Endocrine/Hematology History: Reports: Hx Anticoagulant Therapy, Hx Thyroid Disease - hypothyroid, Other Endocrine/Hematological Disorders - Benign goiter Denies: Hx Bone Marrow Disease, Hx Diabetes, Hx Systemic Lupus Erythematosus Cardiovascular History: Reports: Hx Angina, Hx Atrial Fibrillation, Hx Hypercholesterolemia - was high before cancer,now off meds., Hx Hypertension, Hx Myocardial Infarction - NSTEMI, Other Cardiovascular Problems/Disorders - patent foramen ovale; Murmur, Denies: Hx Congestive Heart Failure, Hx Coronary Artery Disease, Hx Pacemaker /ICD, Hx Valvular Heart Disease Respiratory History: Reports: Hx Asthma, Hx Chronic Obstructive Pulmonary Disease (COPD), Hx Lung Cancer - Left upper lobectomy, Hx Pneumonia, Other Respiratory Problems/Disorders - lung cancer, LOBECTOMY 09/11/11, Emphysema GI History: Reports: Hx Gastroesophageal Reflux Disease, Hx Hiatal Hernia, Other GI Disorders - colitis. 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, Hx Osteoporosis, Hx Scoliosis, Other Musculoskeletal History - scoliosis Denies: Hx Rheumatoid Arthritis Sensory History: Reports: Hx Cataracts - PATIENT STATES BEGINING OF CATARACTS LEFT EYE, Hx Contacts or Glasses, Hx Hearing Problem - right Denies: Hx Hearing Aid Opthamlomology History: Reports: Hx Cataracts - PATIENT STATES BEGINING OF CATARACTS LEFT EYE, Hx Contacts or Glasses Neurological History: Reports: Hx CVA - in 05/16, Hx Headaches, Hx Migraine - Rare post menopause Psychiatric History: Reports: Hx Anxiety, Hx Depression, Hx Community Mental Health Tx, Hx Substance Abuse - opioids Denies: Hx Panic Disorder, Hx Inpatient Treatment - Cancer History Cancer Type, Location and Year: LUNG CA, DIAGNOSED July 2012 Hx Chemotherapy: Yes Hx Radiation Therapy: No Hx Palliative Cancer Treatment: No - Surgical History Surgery Procedure, Year, and Place: LEFT UPPER LUNG REMOVED 09/2012, HYSTERECTOMY , tonsillectomy Hx Anesthesia Reactions: No - Immunization History Date of Tetanus Vaccine: utd Date of Influenza Vaccine: utd Infectious Disease History: No Infectious Disease History: Denies: Hx of Known/Suspected MRSA, Traveled Outside the [place] in Last 30 Days - Family History Known Family History: Positive: Cardiac Disease - Sudden cardiac arrest (father) , Other - son -- glioblastoma. UC mother. Fhx of colitis. - Social History Alcohol Use: None Alcohol Amount: Unknown Hx Substance Use: No Substance Use Type: Reports: Prescribed Substance Use Comment - Amount & Last Used: percocet Hx Tobacco Use: Yes Smoking Status (MU): Heavy Every Day Tobacco Smoker Type: Cigarettes Amount Used/How Often: 1/2 pack a day Length of Time of Smoking/Using Tobacco: 47 years Have You Smoked in the Last Year: Yes Review of Systems Negative: Fever Positive: Headache - along the midline of her head since 24 hours ago All Other Systems Reviewed And Are Negative: Yes Physical Exam - Summary Physical Exam Summary: Appearance: Well appearing, no pain distress Skin: warm, dry, reflects adequate perfusion. Fragile skin with bruises on upper extremity Head/face: Normal. temporal arteries are non-tender Eyes: EOMI, ADORE, Globes are soft and ENT: normal Neck: supple, non-tender Respiratory: Expiratory wheeze (globally mild), breath sounds present Cardiovascular: RRR, pulses symmetrical Abdomen: non-tender, soft Bowel Sounds: present Musculoskeletal: normal, strength/ROM intact. No lower extremity edema Neuro: normal, sensory motor intact, A&Ox3 Triage Information Reviewed: Yes Vital Signs On Initial Exam: Initial Vitals Temp Pulse Resp BP Pulse Ox 97.6 F 108 16 160/100 96 01/01/18 14:11 01/01/18 14:11 01/01/18 14:11 01/01/18 14:11 01/01/18 14:11 Vital Signs Reviewed: Yes Diagnostics - Vital Signs Vital Signs Temp Pulse Resp BP Pulse Ox 01/01/18 14:11 97.6 F 108 16 160/100 96 - Laboratory Lab Statement: Any lab studies that have been ordered have been reviewed, and results considered in the medical decision making process. Headache Course/Dx - Course Course Of Treatment: Patient is very well-known to the ER. She has chronic pain. She was seen here now 3 times over the course of the weekend. She understands she should not be prescribed opiate pain medications patient was given one here for her discomfort. She was discharged improved and pleasant. She has no neurologic signs. - Diagnoses Provider Diagnoses: Chronic headache, Anemia Discharge - Sign-Out/Discharge Documenting (check all that apply): Patient Departure - D/C - Discharge Plan Condition: Improved Disposition: HOME Prescriptions: Promethazine TAB* [Phenergan Tab*] 25 mg PO Q6H PRN #20 tab PRN Reason: Headache Patient Education Materials: Acute Headache (ED) Referrals: Mike Dixon MD [Medical Doctor] - Guerrero Gtz NP [Primary Care Provider] - Additional Instructions: Prescribed medication can be taken with oral Benadryl, Tylenol along with water and some caffeine. Return with numbness/weakness, difficulty with gait, worse, new symptoms or other concerns. Follow-up with neurology on Wednesday as scheduled. - Billing Disposition and Condition Condition: IMPROVED Disposition: Home
[2018-01-01 16:06] VITALS: BP 154/98
== END 2018-01-01 16:03 | disposition home or self-care (01) ==
LOC: ED 14:07
DX: R51 Headache (principal); D64.9 Anemia, unspecified; Z79.01 Long term (current) use of anticoagulants; Z88.6 Allergy status to analgesic agent; Z91.040 Latex allergy status; Z85.118 Personal history of other malignant neoplasm of bronchus and lung; Z82.41 Family history of sudden cardiac death; Z83.79 Family history of other diseases of the digestive system; F17.210 Nicotine dependence, cigarettes, uncomplicated
CPT/HCPCS: 99282; A9270-GY

== ENCOUNTER 2018-01-17 01:47 | Emergency (ER) | payer MEDICARE, BC ==
[2018-01-17] MEDS ORDERED: predniSONE TAB* 20 MG PO ONE (02:00)
--- NOTE | 2018-01-17 02:03 | ED ---
Shortness of Breath - HPI Summary HPI Summary: This is Addi crawford documenting for attending physician Lazarus Rangel MD. This patient is a 67 year old F BIBA to [facility] with a chief complaint of SOB that began at 2230 last night. The patient rates the pain 0/10 in severity. Symptoms alleviated by neb given by EMS. Patient reports anxiety and wheezing. Pt states her COPD has been manageable since she got a nebulizer but could not find it tonight. She states her inhaler ran out but new ones will be delivered today. - History of Current Complaint Chief Complaint: EDShortnessOfBreath Time Seen by Provider: 01/17/18 01:52 Hx Obtained From: Patient Onset/Duration: Lasting Hours, Resolved Timing: Intermittent Episodes Lasting: Current Severity: None Alleviating Factors: EMS Tx Associated Signs & Symptoms: Negative - fever - Allergy/Home Medications Allergies/Adverse Reactions: Allergies Allergy/AdvReac Type Severity Reaction Status Date / Time aspirin Allergy Severe Anaphylatic Verified 01/17/18 01:52 Shock latex Allergy Mild Rash Verified 01/17/18 01:52 PMH/Surg Hx/FS Hx/Imm Hx Endocrine/Hematology History: Reports: Hx Anticoagulant Therapy, Hx Thyroid Disease - hypothyroid, Other Endocrine/Hematological Disorders - Benign goiter Denies: Hx Bone Marrow Disease, Hx Diabetes, Hx Systemic Lupus Erythematosus Cardiovascular History: Reports: Hx Angina, Hx Atrial Fibrillation, Hx Hypercholesterolemia - was high before cancer,now off meds., Hx Hypertension, Hx Myocardial Infarction - NSTEMI, Other Cardiovascular Problems/Disorders - patent foramen ovale; Murmur, Denies: Hx Congestive Heart Failure, Hx Coronary Artery Disease, Hx Pacemaker /ICD, Hx Valvular Heart Disease Respiratory History: Reports: Hx Asthma, Hx Chronic Obstructive Pulmonary Disease (COPD), Hx Lung Cancer - Left upper lobectomy, Hx Pneumonia, Other Respiratory Problems/Disorders - lung cancer, LOBECTOMY 09/11/11, Emphysema GI History: Reports: Hx Gastroesophageal Reflux Disease, Hx Hiatal Hernia, Other GI Disorders - colitis. 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, Hx Osteoporosis, Hx Scoliosis, Other Musculoskeletal History - scoliosis Denies: Hx Rheumatoid Arthritis Sensory History: Reports: Hx Cataracts - PATIENT STATES BEGINING OF CATARACTS LEFT EYE, Hx Contacts or Glasses, Hx Hearing Problem - right Denies: Hx Hearing Aid Opthamlomology History: Reports: Hx Cataracts - PATIENT STATES BEGINING OF CATARACTS LEFT EYE, Hx Contacts or Glasses Neurological History: Reports: Hx CVA - in 05/16, Hx Headaches, Hx Migraine - Rare post menopause Psychiatric History: Reports: Hx Anxiety, Hx Depression, Hx Community Mental Health Tx, Hx Substance Abuse - opioids Denies: Hx Panic Disorder, Hx Inpatient Treatment - Cancer History Cancer Type, Location and Year: LUNG CA, DIAGNOSED July 2012 Hx Chemotherapy: Yes Hx Radiation Therapy: No Hx Palliative Cancer Treatment: No - Surgical History Surgery Procedure, Year, and Place: LEFT UPPER LUNG REMOVED 09/2012, HYSTERECTOMY , tonsillectomy Hx Anesthesia Reactions: No - Immunization History Date of Tetanus Vaccine: unk Date of Influenza Vaccine: fall 2016 Infectious Disease History: No Infectious Disease History: Denies: Hx of Known/Suspected MRSA, Traveled Outside the [place] in Last 30 Days - Family History Known Family History: Positive: Cardiac Disease - Sudden cardiac arrest (father) , Other - son -- glioblastoma. UC mother. Fhx of colitis. - Social History Alcohol Use: None Alcohol Amount: Unknown Hx Substance Use: No Substance Use Type: Reports: Prescribed Substance Use Comment - Amount & Last Used: percocet Hx Tobacco Use: Yes Smoking Status (MU): Heavy Every Day Tobacco Smoker Type: Cigarettes Amount Used/How Often: 1/2 pack a day Length of Time of Smoking/Using Tobacco: 47 years Have You Smoked in the Last Year: Yes Review of Systems Positive: Shortness Of Breath, Other - wheezing Positive: Anxious All Other Systems Reviewed And Are Negative: Yes Physical Exam - Summary Physical Exam Summary: Appearance: Well appearing, no pain distress Skin: warm, dry, reflects adequate perfusion Head/face: normal Eyes: EOMI, ADORE ENT: normal Neck: supple, non-tender Respiratory: CTA, breath sounds present. No wheezes of rales Cardiovascular: RRR, pulses symmetrical Abdomen: non-tender, soft Bowel Sounds: present Musculoskeletal: kyphosis of the upper back. strength/ROM intact Neuro: normal, sensory motor intact, A&Ox3 Triage Information Reviewed: Yes Vital Signs On Initial Exam: Initial Vitals Temp Pulse Resp BP Pulse Ox 97.6 F 78 18 165/93 97 01/17/18 01:50 01/17/18 01:50 01/17/18 01:50 01/17/18 01:50 01/17/18 01:50 Vital Signs Reviewed: Yes Diagnostics - Vital Signs Vital Signs Temp Pulse Resp BP Pulse Ox 01/17/18 01:50 97.6 F 78 18 165/93 97 - Laboratory Lab Statement: Any lab studies that have been ordered have been reviewed, and results considered in the medical decision making process. Course/Dx - Course Course Of Treatment: Well-known patient presents to the ER with exacerbation of her COPD. She was frustrated and anxious as she could not find her nebulizer machine at home. Her inhalers are empty and are not being delivered to her house until morning. She was given breathing treatment by EMS with resolution. She was loaded with prednisone here. She does not need inhalers given that they will arrive in the morning. She will be prescribed prednisone and is discharged to follow up with her primary care physician. - Diagnoses Differential Diagnosis/HQI/PQRI: Positive: Other - COPD, malingering Provider Diagnoses: COPD exacerbation, Tobacco abuse Discharge - Sign-Out/Discharge Documenting (check all that apply): Patient Departure - Discharge Plan Condition: Improved Disposition: HOME Prescriptions: predniSONE TAB* [Deltasone TAB*] 50 mg PO DAILY #3 tab Patient Education Materials: COPD (Chronic Obstructive Pulmonary Disease) (ED) Referrals: Guerrero Gtz, [facility] [Primary Care Provider] - Additional Instructions: Cut back or quit smoking. Call your doctor in the morning for follow-up. Use your inhalers every 4 hours as needed until well. Return if worse fever, new symptoms or other concerns. - Billing Disposition and Condition Condition: IMPROVED Disposition: Home Attestation Statement Scribe Attestation: This is Addi crawford documenting for attending physician Lazarus Rangel MD. User Type: Provider with Ty Provider Attestation: The documentation recorded by the ty accurately reflects the service I personally performed and the decisions made by me.
[2018-01-17 02:19] VITALS: BP 162/93
== END 2018-01-17 02:20 | disposition home or self-care (01) ==
LOC: ED 01:47
DX: J44.1 Chronic obstructive pulmonary disease with (acute) exacerbation (principal); R06.02 Shortness of breath; R06.2 Wheezing; F41.9 Anxiety disorder, unspecified; F17.210 Nicotine dependence, cigarettes, uncomplicated
CPT/HCPCS: 99283; J7512

== ENCOUNTER 2018-01-17 10:25 | Emergency (ER) | payer MEDICARE, BC ==
[2018-01-17 10:35] VITALS: BP 133/87
[2018-01-17] MEDS ORDERED: Albuterol/Ipratropium NEB.SOL* Albuterol 2.5 MG/Ipratropium 0.5 MG 3 ML INH ONE (11:37)
--- NOTE | 2018-01-17 11:40 | ED ---
Shortness of Breath - HPI Summary HPI Summary: Patient is a 67-year-old female who presents emergency department for shortness of breath and wheezing that started just prior to arrival. Patient has a history of COPD. She was actually seen and discharged from our emergency department less than 12 hours ago. Patient states she could not find her nebulizer, felt short of breath and presented to emergency department she denies chest pain, recent illness, fever, increased productive cough, abdominal pain, vomiting, diarrhea, urinary symptoms. He was prescribed prednisone at her last visit. Symptoms are moderate in severity and activity makes symptoms worse. Rest makes symptoms better. - History of Current Complaint Chief Complaint: EDShortnessOfBreath Time Seen by Provider: 01/17/18 11:10 Hx Obtained From: Patient - Allergy/Home Medications Allergies/Adverse Reactions: Allergies Allergy/AdvReac Type Severity Reaction Status Date / Time aspirin Allergy Severe Anaphylatic Verified 01/17/18 01:52 Shock latex Allergy Mild Rash Verified 01/17/18 01:52 Home Medications: Home Medications Acetaminophen TAB* [Tylenol TAB*] 650 mg PO Q4HR PRN 01/17/18 [History Confirmed 01/17/18] Docusate CAP* [Colace Cap*] 200 mg PO BID PRN 01/17/18 [History Confirmed ] Fluticasone DISKUS 100 MCG(NF) [Flovent Diskus 100 MCG(NF)] 1 puff INH BID 01/17 [History Confirmed 01/17/18] Ipratropium 0.5MG/2.5ML NEB* [Atrovent 0.5 MG NEB.ZACHARY*] 0.5 mg INH QID PRN 01/17 [History Confirmed 01/17/18] Ketorolac TAB * [Toradol TAB *] 10 mg PO Q6H PRN 01/17/18 [History Confirmed ] Levothyroxine TAB* [Synthroid TAB*] 175 mcg PO DAILY 01/17/18 [History Confirmed 01/17/18] QUEtiapine TAB* [Seroquel 100 MG *] 300 mg PO BEDTIME 01/17/18 [History Confirmed 01/17/18] SUMAtriptan TAB* [Imitrex TAB*] 50 mg PO DAILY PRN 01/17/18 [History Confirmed 01/17/18] PMH/Surg Hx/FS Hx/Imm Hx Previously Healthy: Yes Endocrine/Hematology History: Reports: Hx Anticoagulant Therapy, Hx Thyroid Disease - hypothyroid, Other Endocrine/Hematological Disorders - Benign goiter Denies: Hx Bone Marrow Disease, Hx Diabetes, Hx Systemic Lupus Erythematosus Cardiovascular History: Reports: Hx Angina, Hx Atrial Fibrillation, Hx Hypercholesterolemia - was high before cancer,now off meds., Hx Hypertension, Hx Myocardial Infarction - NSTEMI, Other Cardiovascular Problems/Disorders - patent foramen ovale; Murmur, Denies: Hx Congestive Heart Failure, Hx Coronary Artery Disease, Hx Pacemaker /ICD, Hx Valvular Heart Disease Respiratory History: Reports: Hx Asthma, Hx Chronic Obstructive Pulmonary Disease (COPD), Hx Lung Cancer - Left upper lobectomy, Hx Pneumonia, Other Respiratory Problems/Disorders - lung cancer, LOBECTOMY 09/11/11, Emphysema GI History: Reports: Hx Gastroesophageal Reflux Disease, Hx Hiatal Hernia, Other GI Disorders - colitis. 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, Hx Osteoporosis, Hx Scoliosis, Other Musculoskeletal History - scoliosis Denies: Hx Rheumatoid Arthritis Sensory History: Reports: Hx Cataracts - PATIENT STATES BEGINING OF CATARACTS LEFT EYE, Hx Contacts or Glasses, Hx Hearing Problem - right Denies: Hx Hearing Aid Opthamlomology History: Reports: Hx Cataracts - PATIENT STATES BEGINING OF CATARACTS LEFT EYE, Hx Contacts or Glasses Neurological History: Reports: Hx CVA - in 05/16, Hx Headaches, Hx Migraine - Rare post menopause Psychiatric History: Reports: Hx Anxiety, Hx Depression, Hx Community Mental Health Tx, Hx Substance Abuse - opioids Denies: Hx Panic Disorder, Hx Inpatient Treatment - Cancer History Cancer Type, Location and Year: LUNG CA, DIAGNOSED July 2012 Hx Chemotherapy: Yes Hx Radiation Therapy: No Hx Palliative Cancer Treatment: No - Surgical History Surgery Procedure, Year, and Place: LEFT UPPER LUNG REMOVED 09/2012, HYSTERECTOMY , tonsillectomy Hx Anesthesia Reactions: No - Immunization History Date of Tetanus Vaccine: unk Date of Influenza Vaccine: fall 2016 Infectious Disease History: No Infectious Disease History: Denies: Hx of Known/Suspected MRSA, Traveled Outside the [place] in Last 30 Days - Family History Known Family History: Positive: Cardiac Disease - Sudden cardiac arrest (father) , Other - son -- glioblastoma. UC mother. Fhx of colitis. - Social History Occupation: Retired Lives: Alone Alcohol Use: Rare Alcohol Amount: Unknown Hx Substance Use: No Substance Use Type: Reports: Prescribed Substance Use Comment - Amount & Last Used: percocet Hx Tobacco Use: Yes Smoking Status (MU): Heavy Every Day Tobacco Smoker Type: Cigarettes Amount Used/How Often: 1/2 pack a day Length of Time of Smoking/Using Tobacco: 47 years Have You Smoked in the Last Year: Yes Review of Systems Constitutional: Negative Negative: Fever, Chills Cardiovascular: Negative Negative: Palpitations, Chest Pain Positive: Shortness Of Breath Gastrointestinal: Negative Genitourinary: Negative Neurological: Negative All Other Systems Reviewed And Are Negative: Yes Physical Exam Triage Information Reviewed: Yes Vital Signs On Initial Exam: Initial Vitals Temp Pulse Resp BP Pulse Ox 98.5 F 88 18 133/87 97 01/17/18 10:32 01/17/18 10:32 01/17/18 10:32 01/17/18 10:32 01/17/18 10:32 Vital Signs Reviewed: Yes Appearance: Positive: Well-Appearing - Patient sitting up in bed in no acute distress. Very talkative. Breathing easy on room air. Skin: Positive: Warm, Dry Head/Face: Positive: Normal Head/Face Inspection Eyes: Positive: Normal Neck: Positive: Supple Respiratory/Lung Sounds: Positive: Other - Mild expiratory wheeze heard throughout. No accessory muscle use. Cardiovascular: Positive: Normal, RRR, Murmur Musculoskeletal: Positive: Normal. Negative: Edema Left, Edema Right Neurological: Positive: Normal, CN Intact II-III Psychiatric: Positive: Affect/Mood Appropriate Diagnostics - Vital Signs Vital Signs Temp Pulse Resp BP Pulse Ox 01/17/18 10:32 98.5 F 88 18 133/87 97 - Laboratory Lab Statement: Any lab studies that have been ordered have been reviewed, and results considered in the medical decision making process. Course/Dx - Course Course Of Treatment: Pt. presenting to the emergency department with complaint of shortness of breath. States she went to use her nebulizer just prior to arrival but could not find it and presented to the emergency department. She has frequent visits to the ER for shortness of breath. O2 saturation is 100% on RA which is normal. VS stable. Pt. is well appearing without signs of sepsis or respiratory distress. Pt. was given duoneb tx and wheezing cleared. Pt. states she just got her albuterol inhaler refilled and is going to pick it up today along with prednisone. Advised to call PCP today for an apt. To return to ER if sxs change or worsen. Pt. understands and agrees with plan. - Diagnoses Differential Diagnosis/HQI/PQRI: Positive: COPD Exacerbation Provider Diagnoses: COPD (chronic obstructive pulmonary disease) Discharge - Sign-Out/Discharge Documenting (check all that apply): Patient Departure - Discharge Plan Condition: Good Disposition: HOME Patient Education Materials: COPD (Chronic Obstructive Pulmonary Disease) (ED) Referrals: Guerrero Gtz LEGAL INSTRUMENTS EXAMINER [Primary Care Provider] - Additional Instructions: Follow up with PCP on Wednesday as scheduled Take home medications as directed Take prescribed prednisone as directed Return to ER if symptoms change or worsen - Billing Disposition and Condition Condition: GOOD Disposition: Home
== END 2018-01-17 13:21 | disposition home or self-care (01) ==
LOC: ED 10:25
DX: J44.1 Chronic obstructive pulmonary disease with (acute) exacerbation (principal); Z79.01 Long term (current) use of anticoagulants; E03.9 Hypothyroidism, unspecified; I25.2 Old myocardial infarction; I48.91 Unspecified atrial fibrillation; K21.9 Gastro-esophageal reflux disease without esophagitis
CPT/HCPCS: 99282; A9270-GY

== ENCOUNTER 2018-01-17 20:49 | Emergency (ER) | payer MEDICARE, BC ==
[2018-01-17] MEDS ORDERED: LORazepam TAB(*) 1 MG PO ONE (21:43)
--- NOTE | 2018-01-17 22:46 | ED ---
Complex/Multi-Sys Presentation - HPI Summary HPI Summary: Pt is 67 y/o F who presents to ED c/o SOB and panic attacks. She states she is feeling severe anxiety from the stress of the days and it is a different feeling from when she visited the ED earlier today. Rates her pain intensity as 5/10 in severity at triage. Pt says she has never had an anxiety attack in her life. - History Of Current Complaint Chief Complaint: EDGeneral Time Seen by Provider: 01/17/18 21:41 Hx Obtained From: Patient Onset/Duration: Sudden Onset, Lasting Hours Severity Currently: Moderate - 5/10 Alleviating Factor(s): Nothing Associated Signs And Symptoms: Positive: SOB, Other - anxiety - Allergies/Home Medications Allergies/Adverse Reactions: Allergies Allergy/AdvReac Type Severity Reaction Status Date / Time aspirin Allergy Severe Anaphylatic Verified 01/17/18 01:52 Shock latex Allergy Mild Rash Verified 01/17/18 01:52 PMH/Surg Hx/FS Hx/Imm Hx Endocrine/Hematology History: Reports: Hx Anticoagulant Therapy, Hx Thyroid Disease - hypothyroid, Other Endocrine/Hematological Disorders - Benign goiter Denies: Hx Bone Marrow Disease, Hx Diabetes, Hx Systemic Lupus Erythematosus Cardiovascular History: Reports: Hx Angina, Hx Atrial Fibrillation, Hx Hypercholesterolemia - was high before cancer,now off meds., Hx Hypertension, Hx Myocardial Infarction - NSTEMI, Other Cardiovascular Problems/Disorders - patent foramen ovale; Murmur, Denies: Hx Congestive Heart Failure, Hx Coronary Artery Disease, Hx Pacemaker /ICD, Hx Valvular Heart Disease Respiratory History: Reports: Hx Asthma, Hx Chronic Obstructive Pulmonary Disease (COPD), Hx Lung Cancer - Left upper lobectomy, Hx Pneumonia, Other Respiratory Problems/Disorders - lung cancer, LOBECTOMY 09/11/11, Emphysema GI History: Reports: Hx Gastroesophageal Reflux Disease, Hx Hiatal Hernia, Other GI Disorders - colitis. 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, Hx Osteoporosis, Hx Scoliosis, Other Musculoskeletal History - scoliosis Denies: Hx Rheumatoid Arthritis Sensory History: Reports: Hx Cataracts - PATIENT STATES BEGINING OF CATARACTS LEFT EYE, Hx Contacts or Glasses, Hx Hearing Problem - right Denies: Hx Hearing Aid Opthamlomology History: Reports: Hx Cataracts - PATIENT STATES BEGINING OF CATARACTS LEFT EYE, Hx Contacts or Glasses Neurological History: Reports: Hx CVA - in 05/16, Hx Headaches, Hx Migraine - Rare post menopause Psychiatric History: Reports: Hx Anxiety, Hx Depression, Hx Community Mental Health Tx, Hx Substance Abuse - opioids Denies: Hx Panic Disorder, Hx Inpatient Treatment - Cancer History Cancer Type, Location and Year: LUNG CA, DIAGNOSED July 2012 Hx Chemotherapy: Yes Hx Radiation Therapy: No Hx Palliative Cancer Treatment: No - Surgical History Surgery Procedure, Year, and Place: LEFT UPPER LUNG REMOVED 09/2012, HYSTERECTOMY , tonsillectomy Hx Anesthesia Reactions: No - Immunization History Date of Tetanus Vaccine: unk Date of Influenza Vaccine: fall 2016 Infectious Disease History: No Infectious Disease History: Denies: Hx of Known/Suspected MRSA, Traveled Outside the [place] in Last 30 Days - Family History Known Family History: Positive: Cardiac Disease - Sudden cardiac arrest (father) , Other - son -- glioblastoma. UC mother. Fhx of colitis. - Social History Alcohol Use: None Alcohol Amount: Unknown Hx Substance Use: No Substance Use Type: Reports: None Substance Use Comment - Amount & Last Used: percocet Hx Tobacco Use: Yes Smoking Status (MU): Heavy Every Day Tobacco Smoker Type: Cigarettes Amount Used/How Often: 1/2 pack a day Length of Time of Smoking/Using Tobacco: 47 years Have You Smoked in the Last Year: Yes Review of Systems Positive: Shortness Of Breath Positive: Anxious All Other Systems Reviewed And Are Negative: Yes Physical Exam - Summary Physical Exam Summary: Appearance: Well-appearing, Well-nourished, lying in bed comfortably. Hyperventilating and obviously very anxious. Skin: Warm, dry, no obvious rash Eyes: sclera anicteric, no conjunctival pallor ENT: mucous membranes moist, pharynx appears normal Neck: Supple, nontender Respiratory: Clear to auscultation, no signs of respiratory distress Cardiovascular: Normal S1, S2. No murmurs. Normal distal pulses in tibial and radial bilaterally. Abdomen: Soft, nontender, normal active bowel sounds present Musculoskeletal: Normal, Strength/ROM Intact Neurological: A&Ox3, awake and alert, mentation is normal, speech is fluent and appropriate Psychiatric: affect is normal, does appear anxious but not depressed Triage Information Reviewed: Yes Vital Signs On Initial Exam: Initial Vitals Pulse BP Pulse Ox 106 176/107 100 08/ 20:54 08/20/18 20:54 01/17/18 20:54 Vital Signs Reviewed: Yes Diagnostics - Vital Signs Vital Signs Temp Pulse Resp BP Pulse Ox 01/17/18 22:00 103 97 01/17/18 21:55 168/116 01/17/18 21:47 16 01/17/18 21:24 102 170/106 99 01/17/18 21:00 100 98 01/17/18 20:56 99.4 F 107 30 176/107 98 01/17/18 20:54 106 176/107 100 - Laboratory Lab Statement: Any lab studies that have been ordered have been reviewed, and results considered in the medical decision making process. Complex Multi-Symp Course/Dx - Diagnoses Provider Diagnoses: Anxiety Discharge - Sign-Out/Discharge Documenting (check all that apply): Patient Departure - Discharge Plan Condition: Good Disposition: HOME Prescriptions: LORazepam TAB(*) [Ativan 0.5 MG TAB (*)] 0.5 mg PO Q4H PRN #10 tab MDD 3 tabs PRN Reason: Anxiety Patient Education Materials: Anxiety (ED) Referrals: Gu[facility] Gtz BEREAVEMENT PROGRAM COORDINATOR [Primary Care Provider] - - Billing Disposition and Condition Condition: GOOD Disposition: Home - Attestation Statements Document Initiated by Scribe: Yes Documenting Scribe: Gerson Duran Provider For Whom Luciano is Documenting (Include Credential): Solo Aiken MD Scribe Attestation: Gerson Winkler, scribed for Solo Aiken MD on 01/18/18 at 1946. Scribe Documentation Reviewed: Yes Provider Attestation: The documentation as recorded by the scribGerson estrada accurately reflects the service I personally performed and the decisions made by me, Solo Aiken MD
[2018-01-18 00:18] VITALS: BP 168/110
== END 2018-01-18 00:19 | disposition home or self-care (01) ==
LOC: ED 20:49
DX: F41.9 Anxiety disorder, unspecified (principal); F17.210 Nicotine dependence, cigarettes, uncomplicated; E03.9 Hypothyroidism, unspecified; Z79.01 Long term (current) use of anticoagulants; E78.00 Pure hypercholesterolemia, unspecified; I48.91 Unspecified atrial fibrillation; I25.2 Old myocardial infarction; I10 Essential (primary) hypertension; K21.9 Gastro-esophageal reflux disease without esophagitis; J44.1 Chronic obstructive pulmonary disease with (acute) exacerbation
CPT/HCPCS: 99283; A9270-GY

== ENCOUNTER 2018-02-26 19:18 | Emergency (ER) | payer MEDICARE, BC ==
[2018-02-26] MEDS ORDERED: Succinylcholine* 20 MG/ML 10 ML VIAL ONE (19:29)
[2018-02-26] MEDS ORDERED: Etomidate* 2 MG/ML 10 ML VIAL ONE (19:29)
[2018-02-26] MEDS ORDERED: NS 0.9% 1000 ML* 1,000 ML IV ONE (19:39)
[2018-02-26] MEDS ORDERED: Norepinephrine 16MCG/ML IVPRE* 4,000 MCG/250 ML BAG IV ONE (19:41)
[2018-02-26] MEDS ORDERED: Calcium CHLORIDE 10% SYRINGE* 1 GM/10 ML ONE (19:44)
[2018-02-26] MEDS ORDERED: Norepinephrine VIAL* 1 MG/ML 4 ML VIAL ONE (19:44)
[2018-02-26] MEDS ORDERED: EPINEPHrine SYR 0.1MG/ML* SYRINGE ONE (19:44)
[2018-02-26] MEDS ORDERED: DOPamine 800 MG/250 ML IVPREM* 3200 MCG/ML *** NOTE STRENGTH CENTR ONE (19:44)
[2018-02-26] MEDS ORDERED: Sodium Bicarbonate 8.4%* 50 ML SYRINGE ONE (19:44)
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
[2018-02-26 19:51] LABS: Hematocrit 18 % (35-47); Hemoglobin 5.3 g/dl (12.0-16.0); Mean Corpuscular HGB Conc 30 g/dl (31-36); Mean Corpuscular Hemoglobin 24 pg (27-31); Mean Corpuscular Volume 78 fL (80-97); Mean Platelet Volume 7.6 um3 (7.4-10.4); Platelet Count 448 10^3/ul (150-450); Red Blood Count 2.25 10^6/ul (4.00-5.40); Red Cell Distribution Width 19 % (10.5-15); White Blood Count 11.5 10^3/ul (3.5-10.8)
[2018-02-26 19:55] LABS: INR 0.96 (0.77-1.02)
[2018-02-26 19:59] LABS: EGFR Non-African American 34.2 (>60)
[2018-02-26 20:15] LABS: ABS Basophils 0.2 10^3/ul (0-0.2); ABS Neutrophils 6.8 10^3/ul (1.5-7.7); ABS Neutrophils 7.6 10^3/ul (1.5-7.7); Monocytes % 3 % (0-7)
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
[2018-02-26 22:49] VITALS: BP 0/0
--- NOTE | 2018-02-27 07:24 | RAD ---
HISTORY: Neurological Changes/Code Elizabeth COMPARISONS: December 31, 2017 VIEWS: 1: frontal AP view of the chest at 8:08 PM FINDINGS: LINES AND TUBES: An endotracheal tube is noted with the tip overlying the trachea between the clavicles and the jennifer. CARDIOMEDIASTINAL SILHOUETTE: The cardiomediastinal silhouette is normal for portable technique. PLEURA: The costophrenic angles are sharp. No pleural abnormalities are noted. LUNG PARENCHYMA: The lungs are clear. ABDOMEN: The upper abdomen is clear. There is no subphrenic gas. BONES AND SOFT TISSUES: No bone or soft tissue abnormalities are noted. IMPRESSION: LINES AND TUBES ABOVE. NO ACTIVE CARDIOPULMONARY DISEASE. R1
== END 2018-02-26 20:19 | disposition expired ==
LOC: ED 19:18
DX: I46.9 Cardiac arrest, cause unspecified (principal); J44.9 Chronic obstructive pulmonary disease, unspecified; Z88.6 Allergy status to analgesic agent
CPT/HCPCS: 36415; 71045; 80053; 80061; 83605; 84484; 85025; 85610; 85730; 86850; 86900; 86901; 96365; 99285; J0171; J0330; J1265